=== PATIENT | male | born 1965 | race American Indian/Alaskan Native ===

== ENCOUNTER 2017-02-24 13:48 | Inpatient (IN) | payer MEDICARE, OTHER ==
[2017-02-24 13:48] VITALS: BMI 46.8
[2017-02-24] MEDS ORDERED: Morphine 4 MG/ML VIAL ONE ×2 (14:59→16:06)
[2017-02-24 15:02] LABS: BASO % 0.3 % (0.0-2.0); EOS # 0.3 K/uL (0.0-0.7); EOS % 2.2 % (0.0-4.0); LYMPH # 0.8 K/uL (1.0-4.3); LYMPH % 7.1 % (20.0-40.0); MEAN CELL VOLUME 74.7 fL (80.0-94.0); MEAN CORPUSCULAR HEMOGLOBIN 23.8 pg (27.0-31.0); MEAN CORPUSCULAR HGB CONC 31.8 g/dL (33.0-37.0); MEAN PLATELET VOLUME 8.4 fL (7.2-11.7); MONO # 0.3 K/uL (0.0-0.8); MONO % 2.2 % (0.0-10.0); PLATELET COUNT 252 K/uL (130-400); RED CELL DISTRIBUTION WIDTH 18.1 % (11.5-14.5); WHITE BLOOD COUNT 11.5 K/uL (4.8-10.8)
[2017-02-24 15:08] LABS: VENOUS BLOOD GAS BASE EXCESS 9.1 mmol/L (0.0-2.0); VENOUS BLOOD GAS PCO2 60 mmHg (40-60); VENOUS BLOOD PH 7.39 (7.32-7.43)
--- NOTE | 2017-02-24 15:08 | C.PDOC ---
History Of Present Illness 51 year old male with a history of ESRD on HD (T,Th,S), presents to the ED c/o worsening right leg pain while during dialysis today. Patient states he has h/ o recurring cellulitis; was admitted for cellulites on 01/13/17. He also thinks he has may have a wound behind his right knee that is oozing. Patient denies fever, falls/injuries, chest pain, SOB. Time Seen by Provider: 02/24/17 13:53 Chief Complaint (Nursing): Lower Extremity Problem/Injury History Per: Patient History/Exam Limitations: no limitations Onset/Duration Of Symptoms: Hrs Current Symptoms Are (Timing): Still Present Severity: Moderate Past Medical History Reviewed: Historical Data, Nursing Documentation, Vital Signs Vital Signs: Last Vital Signs Temp 97.7 F 03/01/17 11:00 Pulse 63 03/01/17 10:45 Resp 16 03/01/17 11:00 BP 105/59 L 03/01/17 14:09 Pulse Ox 95 03/01/17 11:00 - Medical History PMH: Anemia, Bronchitis, COPD, Diabetes, HTN, Peripheral Edema, End Stage Renal Disease, Chronic Kidney Disease, Chronic Pain - [facility] Procedures DIALYSIS ARTERIOVENOSTOM (05/07/14) DILATION OF LEFT BRACHIAL VEIN, PERCUTANEOUS APPROACH (08/04/16) DRESSING OF WOUND NEC (05/29/14) EXTIRPATION OF MATTER FROM L BRACH ART, PERC APPROACH (08/04/16) EXTIRPATION OF MATTER FROM LEFT BRACHIAL VEIN, PERC APPROACH (08/04/16) HEMODIALYSIS (05/29/14) OTHER FASCIECTOMY (05/29/14) PACKED CELL TRANSFUSION (05/29/14) PERCUTAN NEEDLE BIOPSY OF KIDNEY (01/30/14) PERFORMANCE OF URINARY FILTRATION, MULTIPLE (02/24/17) VENOUS CATHETERIZATION FOR RENAL DIALYSIS (01/18/14) VENOUS CATHETERIZATION NEC (09/22/13) Family History: States: No Known Family Hx - Social History Hx Tobacco Use: No Hx Alcohol Use: No Hx Substance Use: No - Immunization History Hx Tetanus Toxoid Vaccination: No Hx Influenza Vaccination: No Hx Pneumococcal Vaccination: No Review Of Systems Except As Marked, All Systems Reviewed And Found Negative. Constitutional: Negative for: Fever, Chills Cardiovascular: Negative for: Chest Pain, Palpitations Respiratory: Negative for: Cough, Shortness of Breath Gastrointestinal: Negative for: Nausea, Vomiting, Abdominal Pain, Diarrhea Musculoskeletal: Positive for: Leg Pain (+Right leg pain and swelling) Physical Exam - Physical Exam Appears: Non-toxic, Other (+Moderate discomfort, +Morbidly obese) Skin: Normal Color, Warm, Dry Head: Normacephalic Eye(s): bilateral: Normal Inspection Oral Mucosa: Moist Cardiovascular: Rhythm Regular Respiratory: Normal Breath Sounds, No Rales, No Rhonchi, No Wheezing Gastrointestinal/Abdominal: Normal Exam, Bowel Sounds, Soft, No Tenderness, No Rebound, Other (obese) Extremity: Tenderness (+Diffuse tenderness to palpation right leg, greatest at thigh ), No Calf Tenderness, Capillary Refill (< 2 sec all digits ), No Deformity, Other (+Significant lymphedema of bilateral legs. ) Extremity: Right: Other (+Diffuse erythema of right leg. No obvious wounds, fluctuance/induration.) Pulses: Left Dorsalis Pedis: Normal, Right Dorsalis Pedis: Normal Neurological/Psych: Oriented x3, Normal Sensation ED Course And Treatment - Laboratory Results Result Diagrams: 03/01/17 06:46 03/01/17 06:46 O2 Sat by Pulse Oximetry: 96 (Room air) Pulse Ox Interpretation: Normal Progress Note: Blood work ordered and reviewed. Patient given IV Morphine for pain, and IV Vancomycin and Cefepime. 15:56- Discussed patient with Dr. Jiang ( Hospitalist), who agrees with admission for cellulitis, bandemia, ESRD on HD. - Physician Consult Information Physician Contacted: Yuriy Jiang Disposition - Disposition Disposition: HOSPITALIZED Disposition Time: 16:02 Condition: STABLE - Clinical Impression Clinical Impression: Cellulitis, Bandemia, ESRD on hemodialysis - Scribe Statement The provider has reviewed the documentation as recorded by the Scribe Fidencio Das. Provider Attestation: All medical record entries made by the Scribe were at my direction and personally dictated by me. I have reviewed the chart and agree that the record accurately reflects my personal performance of the history, physical exam, medical decision making, and the department course for this patient. I have also personally directed, reviewed, and agree with the discharge instructions and disposition. Decision To Admit - Pt Status Changed To: Hospital Disposition Of: Inpatient - Admit Certification Admit to Inpatient:: After my assessment, the patient will require hospitalization for at least two midnights. This is because of the severity of symptoms shown, intensity of services needed, and/or the medical risk in this patient being treated as an outpatient. - InPatient: Physician Admission Certification: I certify that this patient requires 2 or more midnights of care for the following reason:: see notes - . Bed Request Type: Regular Admitting Physician: Yuriy Jiang Patient Diagnosis: Cellulitis, Bandemia, ESRD on hemodialysis
[2017-02-24 15:12] LABS: POTASSIUM 3.4 mmol/L (3.6-5.2)
[2017-02-24 15:14] LABS: BILIRUBIN,TOTAL 0.6 mg/dL (0.2-1.3)
[2017-02-24 15:15] LABS: ALB/GLOB RATIO 0.9 (1.0-2.1); TOTAL PROTEIN 8.8 g/dL (6.3-8.3)
[2017-02-24] MEDS ORDERED: Cefepime 1 GM in Sodium Chloride 0.9% 50 ML IVPB ONE (15:15)
[2017-02-24 15:32] LABS: EOSINOPHIL 3 % (0-4); NEUTROPHIL 51 % (50-75); TOTAL CELLS COUNTED 100
[2017-02-24] MEDS ORDERED: Cefepime IV 1 gm in Dextrose 50 ML IVPB ONE (15:45)
--- NOTE | 2017-02-24 16:44 | CP.PCM.HP ---
<Cindy Albright - Last Filed: 02/24/17 17:35> History of Present Illness - History of Present Illness History of Present Illness: Internal medicine H & P for Hospitalist service- Cindy Albright, PGY-1 Pt S & E at bedside. 51 yo M w/PMH sig for ESRD on HD, chronic lymph edema, morbid obesity and chronic asthma/bronchitis admitted for RLE cellulitis x 1 day. Pt reports he noted R pant leg was wet from leg weaping today prior to HD, during HD pt noted onset of burning/pins & needles, pressure pain in R leg w/radiation to thigh, constant, increased in intensity over time. Denies alleviating/ aggravating/known inciting factors, has prior hx of similar due to small breaks in skin. Admits to dizziness, chills (intermittent, recurrent), numbness/ tingling of RLE, [place]. Denies N/V/F, CP, abdominal pain, constipation, diarrhea , dysuria, urinary frequency, anuria, blurry vision, double vision, headache, cough, congestion, rhinorrhea, palpitations. PMH: chronic lymph edema, ESRD on HD (TTS), morbid obesity, chronic asthma/ bronchitis PSH: Failed AVF, L UE graft/stents All: Pet dander, dust SH: Quit tobacco use 2 mos ago (hx of 1/2 ppd x 2 yrs), occasional/special occasion ETOH use, remote hx of cocaine/MJ use PMD: Ivet Alegre Nephro: Nakul Present on Admission - Present on Admission Any Indicators Present on Admission: No History of DVT/PE: No History of Uncontrolled Diabetes: No Urinary Catheter: No Decubitus Ulcer Present: No Review of Systems - Review of Systems All systems: reviewed and no additional remarkable complaints except - Constitutional Constitutional: Chills, Weight Loss (intentional). absent: Fever - EENT Eyes: absent: Blurred Vision, Change in Vision Ears: absent: Dizziness Nose/Mouth/Throat: absent: Nasal Congestion, Sore Throat - Cardiovascular Cardiovascular: absent: Chest Pain, Diaphoresis, Palpitations - Respiratory Respiratory: absent: Cough, Chest Congestion - Gastrointestinal Gastrointestinal: Nausea. absent: Abdominal Pain, Constipation, Diarrhea, Hematemesis, Hematochezia, Vomiting - Genitourinary Genitourinary: absent: Change in Urinary Stream, Difficulty Urinating, Dysuria, Hematuria - Musculoskeletal Musculoskeletal: Numbness, Tingling - Integumentary Integumentary: Dry Skin, Erythema, Swelling - Neurological Neurological: absent: Dizziness, Weakness - Endocrine Endocrine: absent: Fatigue Past Patient History - Infectious Disease Hx of Infectious Diseases: None - Past Medical History & Family History Past Medical History?: Yes - Past Social History Smoking Status: Former Smoker - CARDIAC Hx Hypertension: Yes Hx Peripheral Edema: Yes - PULMONARY Hx Bronchitis: Yes Hx Chronic Obstructive Pulmonary Disease (COPD): Yes - NEUROLOGICAL Hx Neurological Disorder: No - HEENT Hx HEENT Problems: No - RENAL Hx Chronic Kidney Disease: Yes - ENDOCRINE/METABOLIC Hx Diabetes Mellitus Type 2: Yes - HEMATOLOGICAL/ONCOLOGICAL Hx Anemia: Yes - INTEGUMENTARY Hx Dermatological Problems: Yes Hx Cellulitis: Yes - MUSCULOSKELETAL/RHEUMATOLOGICAL Hx Musculoskeletal Disorders: Yes Hx Falls: Yes - GASTROINTESTINAL Hx Gastrointestinal Disorders: Yes Hx Gastroesophageal Reflux: Yes - GENITOURINARY/GYNECOLOGICAL Hx Genitourinary Disorders: No - PSYCHIATRIC Hx Substance Use: No - SURGICAL HISTORY Hx Surgeries: Yes (Left arm AV Fistula) Hx Vascular Surgery: Yes (ACCESS FOR DIALYSIS) - ANESTHESIA Hx Anesthesia: Yes Hx Anesthesia Reactions: No Hx Malignant Hyperthermia: No Meds Allergies/Adverse Reactions: Allergies Allergy/AdvReac Type Severity Reaction Status Date / Time piperacillin AdvReac ITCHING, Verified 02/24/17 14:06 SHORTNESS OF BREATH PET DANDER Allergy Severe CONGESTION Uncoded 01/13/17 12:23 Physical Exam - Constitutional Appears: Non-toxic, No Acute Distress - Head Exam Head Exam: ATRAUMATIC, NORMAL INSPECTION, NORMOCEPHALIC - Eye Exam Eye Exam: EOMI, Normal appearance, PERRL Pupil Exam: NORMAL ACCOMODATION, PERRL - ENT Exam ENT Exam: Mucous Membranes Moist, Normal Exam - Neck Exam Neck exam: Positive for: Full Rom, Normal Inspection - Respiratory Exam Respiratory Exam: Clear to Auscultation Bilateral, NORMAL BREATHING PATTERN. absent: Decreased Breath Sounds, Rales, Rhonchi, Wheezes, Stridor - Cardiovascular Exam Cardiovascular Exam: REGULAR RHYTHM, +S1, +S2 - GI/Abdominal Exam GI & Abdominal Exam: Normal Bowel Sounds, Soft. absent: Distended (obese), Tenderness - Extremities Exam Extremities exam: Positive for: pedal edema, tenderness. Negative for: normal inspection Additional comments: RLE w/severe tenderness to palpation, multiple folds, proximal folds with moisture- white creamy rash, whole leg with increased warmth, erythematous, proximal medial thigh with induration, severely tender to palpation, intact sensation - Back Exam Back exam: FULL ROM, NORMAL INSPECTION - Neurological Exam Neurological exam: Alert, CN II-XII Intact, Oriented x3 - Psychiatric Exam Psychiatric exam: Normal Affect, Normal Mood - Skin Skin Exam: Dry, Erythema, Rash, Warm Results - Vital Signs Recent Vital Signs: Last Vital Signs Temp 97.5 F L 02/24/17 13:52 Pulse 92 H 02/24/17 13:52 Resp 20 02/24/17 13:52 BP 121/71 02/24/17 13:52 Pulse Ox 96 02/24/17 16:05 - Labs Result Diagrams: 02/24/17 14:56 02/24/17 14:56 Assessment & Plan - Assessment and Plan (Free Text) Assessment: R lower extremity cellulitis, high suspicion for Sepsis Leukocytosis Afebrile Tachycardia FU procalcitonin FU LA @ 6pm FU Blood Cxr FU urine cxr FU Doppler U/S of RLE FU U/S of R/L medial thigh to R/o abscess Colace Zofran Dilaudid 0.5mg Q4H PRN Floraster 250mg BID Cefepime 1gm Q12H Vancomycin 1gm Q12H Nystatin topical Wound care Q12H ID consulted- Candelaria ESRD on HD Renal diet NS@75 Nephro consulted- Nakul Hx asthma FU CXR O2 PRN GI/DVT ppx SCDs contraindicated due to intolerance/infection Heparin Pepcid Dispo: Admit to Med surg VS Q4H Renal/dialysis diet Ambulate with assistance PT/OT LUE precautions 2/2 AV graft/stents DW attending - Date & Time Date: 02/24/17 Time: 04:00 Decision To Admit - Pt Status Changed To: Hospital Disposition Of: Inpatient - Admit Certification Admit to Inpatient:: After my assessment, the patient will require hospitalization for at least two midnights. This is because of the severity of symptoms shown, intensity of services needed, and/or the medical risk in this patient being treated as an outpatient. - InPatient: Physician Admission Certification:: possible sepsis vs. DVT vs. RLE cellulitis - . Bed Request Type: Regular Admitting Physician: Rohini Tomlinson <Rohini Tomlinson V - Last Filed: 02/26/17 08:07> Results - Vital Signs Recent Vital Signs: Last Vital Signs Temp 98.7 F 02/26/17 07:38 Pulse 82 02/26/17 07:38 Resp 20 02/26/17 07:38 BP 132/76 02/26/17 07:38 Pulse Ox 96 02/26/17 07:38 - Labs Result Diagrams: 02/26/17 07:30 02/25/17 08:50 Labs: Laboratory Results - last 24 hr 02/25/17 02/25/17 02/26/17 08:50 13:48 07:30 WBC 23.3 H D 20.9 H RBC 4.28 L 3.96 L Hgb 10.0 L 9.1 L Hct 31.7 L 29.4 L MCV 74.1 L 74.1 L MCH 23.4 L 23.1 L MCHC 31.6 L 31.1 L RDW 18.0 H 17.7 H Plt Count 203 186 MPV 7.9 8.1 Neut % (Auto) 91.6 H 85.9 H Lymph % (Auto) 4.0 L 6.8 L [place] % (Auto) 4.1 6.1 Eos % (Auto) 0.2 1.1 Baso % (Auto) 0.1 0.1 Neut # 21.3 H 18.0 H Lymph # 0.9 L 1.4 [place] # 0.9 H 1.3 H Eos # 0.0 0.2 Baso # 0.0 0.0 Neutrophils % (Manual) 61 Band Neutrophils % 29 H* Lymphocytes % (Manual) 3 L Monocytes % (Manual) 7 Platelet Estimate Normal Hypochromasia (manual) Slight Poikilocytosis (manual Slight Anisocytosis (manual) Slight Target Cells Slight APTT 29 Sodium 133 Potassium 4.1 Chloride 87 L Carbon Dioxide 32 H Anion Gap 18 BUN 36 H Creatinine 3.5 H Est GFR ( Amer) 23 Est GFR (Non-Af Amer) 19 Random Glucose 136 H Lactic Acid 1.2 Calcium 8.2 L Total Bilirubin 1.2 AST 26 ALT 20 L Alkaline Phosphatase 72 Total Protein 7.3 Albumin 3.4 L Globulin 3.9 Albumin/Globulin Ratio 0.9 L Attending/Attestation - Attestation I have personally seen and examined this patient.: Yes I have fully participated in the care of the patient.: Yes I have reviewed all pertinent clinical information: Yes Notes (Text): This is a late computer entry for 02/24/17. Patient seen, examined and case discussed with day-time resident on 02/24/17 in Bed Brian 10 at approximately 5:25PM with resident. 1) Sepsis secondary to right lower extremity * Criteria: Elevated Bands, HR>90, and suspected source right lower extremity cellulitis * In the ED, patient given dose of Cefepime and Vancomcyin one time doses and lactacte per VBG was 3.0 at 3PM * Repeat lactate and procalcitonin at 6PM * In the ED, ordered for Blood cultures, urine culture, and completed chest xray * Per exam, patient has edematous area over the right lower extremity medial aspect; will order ultrasound to determine if there is abscess present; note physical exam: patient has "elephantisis" type of legs bilateral: using light source, the right lower extremity is darker, erythematous, and painful to touch extending up into groin area as opposed to left lower extremity there is no similar skin changes. Also note, patient has in the folds of the right lower extremity area of white plaque buildup suspecting fungal. I've checked around his groin and intrigenous folds and there are not other areas observed for antifungal. Dialysis access does not appear warm, infected upon exam. * order Doppler U/S of RLE r/o DVT risk factor: morbid obesity (patient is ambulatory, no recent surgery, no recent trauma, no suspected hx of cancer, no prior known hx of DVT * FU U/S of R/L medial thigh to R/o abscess * Colace 100mg PO bid * Zofran 4mg Iv Q 6hour PRN nausea * Dilaudid 0.5mg Q4H PRN severe pain * Floraster 250mg BID for probiotic * Abx: Cefepime 1gm [id number] and Vancomycin 1gm [id number] (Note: Patient DOES NOT have pencillin allergy; per patient, his grandmother decided for all the children they had a pencillin allergy because she had an anaphylactic type of reaction; he reports he tolerates pencillin no adverse reaction) * Nystatin topical * Wound care Q12H * Consult: Dr. Gaona (infectious disease) for further recommendations * IV hydration: NS@ 75 cc/hr; patient is ESRD; will not bolus him at this time; normotensive; will monitor him 2) ESRD on HD * Per patient, he completed about 1.5 hour of dialysis today prior to coming in but cannot recall how much fluid was taken off him; he was an additional session to his session from Wednesday because of prior social engagement interrupting his normal dialysis schedule * Renal diet * NS@75 * Consult Nephrology (Dr. Mota) on board 3) Hx of asthma * Patient is not in acute exacerbation; use pump sparingly; never been intubated for asthma * Ordered for baseline chest xray * Oxygen PRN 4) GI/DVT ppx * SCDs contraindicated due to lower extremity edema and ruling out DVT * Heparin 5000 units [id number] * Pepcid for GI ppx
[2017-02-24] MEDS ORDERED: Sodium Chloride 0.9% 1,000 ML IV SCH (17:15)
--- NOTE | 2017-02-24 18:11 | US ---
PROCEDURE: Limited ultrasound examination of the right lower extremity/right medial thigh HISTORY: Right medial thigh r/o abscess COMPARISON: No prior similar study available for comparison. TECHNIQUE: Limited ultrasound examination of the right thigh and popliteal fossa was performed. FINDINGS: This study demonstrate subcutaneous edema and soft tissue swelling at the right thigh and popliteal fossa. No evidence of discrete fluid collection. No evidence of abscess formation. IMPRESSION: Skin and subcutaneous soft tissue edema and swelling seen at the right thigh and posterior fossa. No evidence of abscess formation.
[2017-02-24] MEDS ORDERED: Sodium Chloride 0.9% 1,000 ML ONE (18:24)
--- NOTE | 2017-02-24 18:58 | RAD ---
HISTORY: Asthma COMPARISON: 01/13/2017 FINDINGS: LUNGS: There is mild pulmonary venous congestion. PLEURA: No significant pleural effusion identified, no pneumothorax apparent. CARDIOVASCULAR: Normal. OSSEOUS STRUCTURES: No significant abnormalities. VISUALIZED UPPER ABDOMEN: Normal. OTHER FINDINGS: None. IMPRESSION: No active pulmonary disease. Mild pulmonary venous congestion.
[2017-02-24] MEDS: Saccharomyces Boulardi 250 mg Cap PO SCH (19:59)
[2017-02-24] MEDS: Nystatin 100,000 Units/gm Topical Pow(15 gm) TOP SCH (20:00)
[2017-02-24] MEDS: HYDROmorphone 0.5 mg/0.5 ml ISec IVP PRN (22:24)
[2017-02-25] MEDS: HYDROmorphone 0.5 mg/0.5 ml ISec IVP PRN ×2 (02:20→08:57)
[2017-02-25] MEDS ORDERED: Vancomycin 1 gm/NS 200 ml 200 ML IVPB SCH (05:00)
[2017-02-25 08:57] LABS: BASO % 0.1 % (0.0-2.0); EOS % 0.2 % (0.0-4.0); HEMATOCRIT 31.7 % (35.0-51.0); LYMPH # 0.9 K/uL (1.0-4.3); MEAN CELL VOLUME 74.1 fL (80.0-94.0); MEAN CORPUSCULAR HEMOGLOBIN 23.4 pg (27.0-31.0); MEAN CORPUSCULAR HGB CONC 31.6 g/dL (33.0-37.0); MEAN PLATELET VOLUME 7.9 fL (7.2-11.7); MONO # 0.9 K/uL (0.0-0.8); MONO % 4.1 % (0.0-10.0); PLATELET COUNT 203 K/uL (130-400)
[2017-02-25 08:58] LABS: WHITE BLOOD COUNT 23.3 K/uL (4.8-10.8)
[2017-02-25 09:06] LABS: POTASSIUM 4.1 mmol/L (3.6-5.2)
[2017-02-25 09:08] LABS: ALB/GLOB RATIO 0.9 (1.0-2.1); BILIRUBIN,TOTAL 1.2 mg/dL (0.2-1.3); TOTAL PROTEIN 7.3 g/dL (6.3-8.3)
[2017-02-25 09:09] LABS: CALCIUM 8.2 mg/dl (8.6-10.4)
[2017-02-25 10:15] LABS: NEUTROPHIL 61 % (50-75); TOTAL CELLS COUNTED 100
--- NOTE | 2017-02-25 10:27 | CP.PCM.CON ---
History of Present Illness - History of Present Illness History of Present Illness: 51 yo M w/PMH sig for ESRD on HD, chronic lymph edema, morbid obesity and chronic asthma/bronchitis admitted for RLE cellulitis x 1 day. Pt reports he noted R pant leg was wet from leg weaping today prior to HD, during HD pt noted onset of burning/pins & needles, pressure pain in R leg w/radiation to thigh, constant, increased in intensity over time. Denies alleviating/ aggravating/known inciting factors, has prior hx of similar due to small breaks in skin. Admits to dizziness, chills (intermittent, recurrent), numbness/ tingling of RLE, [place]. Denies N/V/F, CP, abdominal pain, constipation, diarrhea , dysuria, urinary frequency, anuria, blurry vision, double vision, headache, cough, congestion, rhinorrhea, palpitations. PMH: chronic lymph edema, ESRD on HD (TTS), morbid obesity, chronic asthma/ bronchitis PSH: Failed AVF, L UE graft/stents All: Pet dander, dust SH: Quit tobacco use 2 mos ago (hx of 1/2 ppd x 2 yrs), occasional/special occasion ETOH use, remote hx of cocaine/MJ use PMD: Ivet Alegre CONSULT DICTATED HAS CELLULITIS RIGHT LE AGREE WITH IV VANCO- WOULD CHANGE TO RENAL APPROPRIATE DOSE Past Patient History - Infectious Disease Hx of Infectious Diseases: None - Past Medical History & Family History Past Medical History?: Yes - Past Social History Smoking Status: Former Smoker - CARDIAC Hx Hypertension: Yes Hx Peripheral Edema: Yes - PULMONARY Hx Bronchitis: Yes Hx Chronic Obstructive Pulmonary Disease (COPD): Yes - NEUROLOGICAL Hx Neurological Disorder: No - HEENT Hx HEENT Problems: No - RENAL Hx Chronic Kidney Disease: Yes Hx Dialysis: Yes Type of Dialysis Access: left arm av fistula Date of Last Dialysis Treatment: 02/23/17 Hx Renal Failure: Yes Other/Comment: esrd - ENDOCRINE/METABOLIC Hx Diabetes Mellitus Type 2: Yes - HEMATOLOGICAL/ONCOLOGICAL Hx Anemia: Yes - INTEGUMENTARY Hx Dermatological Problems: Yes Hx Cellulitis: Yes - MUSCULOSKELETAL/RHEUMATOLOGICAL Hx Falls: Yes - GASTROINTESTINAL Hx Gastrointestinal Disorders: Yes Hx Gastroesophageal Reflux: Yes - GENITOURINARY/GYNECOLOGICAL Hx Genitourinary Disorders: No - PSYCHIATRIC Hx Substance Use: No - SURGICAL HISTORY Hx Surgeries: Yes (Left arm AV Fistula) Hx Vascular Surgery: Yes (ACCESS FOR DIALYSIS) - ANESTHESIA Hx Anesthesia: Yes Hx Anesthesia Reactions: No Hx Malignant Hyperthermia: No Has any member of the family had a problem w/ anesthesia?: No Meds Allergies/Adverse Reactions: Allergies Allergy/AdvReac Type Severity Reaction Status Date / Time piperacillin AdvReac ITCHING, Verified 02/24/17 14:06 SHORTNESS OF BREATH PET DANDER Allergy Severe CONGESTION Uncoded 01/13/17 12:23 - Medications Medications: Current Medications Acetaminophen (Tylenol 325mg Tab) 650 mg PO Q6 PRN PRN Reason: Fever >100.4 F Last Admin: 02/25/17 00:44 Dose: 650 mg Docusate Sodium (Colace) 100 mg PO BID [facility] Last Admin: 02/24/17 20:01 Dose: 100 mg Famotidine (Pepcid) 20 mg PO BID [facility] Last Admin: 02/24/17 20:01 Dose: 20 mg Heparin Sodium (Porcine) (Heparin) 5,000 units SC Q8H [facility] Last Admin: 02/25/17 05:22 Dose: 5,000 units Hydromorphone HCl (Dilaudid) 0.5 mg IVP Q4H PRN PRN Reason: Pain, moderate (4-7) Last Admin: 02/25/17 08:57 Dose: 0.5 mg Sodium Chloride (Sodium Chloride 0.9%) 1,000 mls @ 75 mls/hr IV .[id number] [facility] Last Admin: 02/24/17 19:12 Dose: 75 mls/hr Cefepime HCl 1 gm/ Dextrose 50 mls @ 100 mls/hr IVPB Q12H [facility] Vancomycin/Sodium Chloride (Vancocin) 200 mls @ 133 mls/hr IVPB TTS [facility] Stop: 03/04/17 10:01 Nystatin (Nystop Topical Powder) 1 gm TOP Q12H [facility] Last Admin: 02/24/17 20:00 Dose: 1 gm Ondansetron HCl (Zofran Inj) 4 mg IVP Q6 PRN PRN Reason: Nausea/Vomiting Saccharomyces Boulardii (Florastor) 250 mg PO Q12H [facility] Last Admin: 02/24/17 19:59 Dose: 250 mg Results - Vital Signs Recent Vital Signs: Last Vital Signs Temp 98.2 F 02/25/17 07:31 Pulse 87 02/25/17 07:31 Resp 20 02/25/17 07:31 BP 108/72 02/25/17 07:31 Pulse Ox 96 02/25/17 07:31 - Labs Result Diagrams: 02/25/17 08:50 02/25/17 08:50 Labs: Laboratory Results - last 24 hr 02/24/17 02/24/17 02/25/17 18:53 21:13 08:50 WBC 23.3 H D RBC 4.28 L Hgb 10.0 L Hct 31.7 L MCV 74.1 L MCH 23.4 L MCHC 31.6 L RDW 18.0 H Plt Count 203 MPV 7.9 Neut % (Auto) 91.6 H Lymph % (Auto) 4.0 L [place] % (Auto) 4.1 Eos % (Auto) 0.2 Baso % (Auto) 0.1 Neut # 21.3 H Lymph # 0.9 L [place] # 0.9 H Eos # 0.0 Baso # 0.0 Neutrophils % (Manual) 61 Band Neutrophils % 29 H* Lymphocytes % (Manual) 3 L Monocytes % (Manual) 7 Platelet Estimate Normal Hypochromasia (manual) Slight Poikilocytosis (manual Slight Anisocytosis (manual) Slight Target Cells Slight PT 11.5 INR 1.0 APTT 32 29 Sodium 133 Potassium 4.1 Chloride 87 L Carbon Dioxide 32 H Anion Gap 18 BUN 36 H Creatinine 3.5 H Est GFR ( Amer) 23 Est GFR (Non-Af Amer) 19 Random Glucose 136 H Lactic Acid 3.9 H Calcium 8.2 L Total Bilirubin 1.2 AST 26 ALT 20 L Alkaline Phosphatase 72 Total Protein 7.3 Albumin 3.4 L Globulin 3.9 Albumin/Globulin Ratio 0.9 L Procalcitonin 16.64 H
--- NOTE | 2017-02-25 10:50 | CON ---
DATE: 02/25/2017 The patient is a 51-year-old man who presents on the evening of 02/24/2017 with drai nage of his right lower extremity, mostly in the thigh area. He has had fevers and chills, and in e Emergency Department he was found to have a temperature over 102. He was admitted for cellulitis of the right lower extremity. The patient has history of recurrent cellulitis related to chronic lymph edema of the lower extremities. PAST MEDICAL HISTORY: Is that of hypertension, chronic glomerulonephritis, end-stage renal disease, has been on maintenance hemodialysis for about 2-1/2 years; history of asthma, morbid obesity, chroni c lymphedema of lower extremities. MEDICATIONS: He is not taking any medications at present. PAST SURGICAL HISTORY: Is that of a failed AV graft and a new left arm AV fistula which is functiona l. He had previous dialysis catheters as well. He had an incision and drainage of a right lower ext remity abscess in the past as well. FAMILY HISTORY: Noncontributory. SOCIAL HISTORY: He was recently smoking; he just quit smoking. He has been smoking for many years t li. No history of alcohol abuse or illicit drug use. REVIEW OF SYSTEMS: Significant for lower extremity swelling for many years. He has moderate dyspnea on exertion after 2 or 3 blocks. No recent cough. He has had recent fevers and chills on presentat ion. He has had no nausea, vomiting or diarrhea. He still has urine output, but no dysuria recently . He did have recent chills and did have the redness over the right lower extremity. No chest pain. Other review of systems are all negative. Chest x-ray was no acute disease. LABORATORY DATA: Remarkable for a high white count of 23,000, hemoglobin of 10. He had a shift to t he left on his white count. He has CO2 retention on a blood gas. His potassium is 4.1, BUN 36, crea tinine 3.5. Lactic acid is elevated at 3.9. Calcium is stable at 8.2. IMPRESSION: Cellulitis of the right lower extremity, end-stage renal disease, hypertension, insulin- dependent diabetes mellitus type 2, chronic asthma, chronic lower extremity lymphedema. PLAN: Wound care and IV antibiotics as per medical team. He was given vancomycin. I would need to change the dose to appropriate vancomycin levels for a renal patient. I will schedule his dialysis. Will follow up. Jt Mota MD cc: [id number] TT: 02/25/2017 10:50:12 Confirmation # [id number] Dictation # [id number] mn
[2017-02-25] MEDS ORDERED: Sodium Chloride 0.9% 500 ML IV ONE (14:45)
[2017-02-25] MEDS: HYDROmorphone 1 mg/ml ISec IVP PRN ×2 (14:58→19:32)
[2017-02-25] MEDS ORDERED: Sodium Chloride 0.9% 1,000 ML IV SCH (15:15)
--- NOTE | 2017-02-25 15:15 | CP.PCM.PN ---
<Cindy Albright - Last Filed: 02/25/17 15:11> Subjective - Date & Time of Evaluation Date of Evaluation: 02/25/17 Time of Evaluation: 07:30 - Subjective Subjective: Internal medicine progress note for Hospitalist service- Cindy Albright, PGY-1 Pt S & E at bedside. Pt febrile overnight, very diaphoretic, "feels funny", RLE pain is minimally controlled- pt asking for increase in pain regimen. Otherwise, doing ok, denies N/V/C, SOB, CP, abdominal pain. Tolerating diet. Objective - Vital Signs/Intake and Output Vital Signs (last 24 hours): Temp Pulse Resp BP Pulse Ox 98.2 F 87 20 108/72 96 02/25/17 07:31 02/25/17 07:31 02/25/17 07:31 02/25/17 07:31 02/25/17 07:31 - Medications Medications: Current Medications Acetaminophen (Tylenol 325mg Tab) 650 mg PO Q6 PRN PRN Reason: Fever >100.4 F Last Admin: 02/25/17 00:44 Dose: 650 mg Famotidine (Pepcid) 20 mg PO DAILY [facility] Heparin Sodium (Porcine) (Heparin) 5,000 units SC Q8H [facility] Last Admin: 02/25/17 14:07 Dose: Not Given Hydromorphone HCl (Dilaudid) 1 mg IVP Q4H PRN PRN Reason: Pain, severe (8-10) Last Admin: 02/25/17 14:58 Dose: 1 mg Sodium Chloride (Sodium Chloride 0.9%) 1,000 mls @ 75 mls/hr IV .[id number] [facility] Last Admin: 02/24/17 19:12 Dose: 75 mls/hr Vancomycin/Sodium Chloride (Vancocin) 200 mls @ 133 mls/hr IVPB TTS [facility] Stop: 03/04/17 10:01 Cefepime HCl 1 gm/ Dextrose 50 mls @ 100 mls/hr IVPB Q12H [facility] Last Admin: 02/25/17 10:43 Dose: 100 mls/hr Sodium Chloride (Sodium Chloride 0.9%) 500 mls @ 1,000 mls/hr IV .Q30M ONE Stop: 02/25/17 15:14 Sodium Chloride (Sodium Chloride 0.9%) 1,000 mls @ 100 mls/hr IV .Q10H [facility] Morphine Sulfate (Morphine) 2 mg IVP Q3 PRN PRN Reason: Pain, moderate (4-7) Nystatin (Nystop Topical Powder) 1 gm TOP Q12H [facility] Last Admin: 02/24/17 20:00 Dose: 1 gm Ondansetron HCl (Zofran Inj) 4 mg IVP Q6 PRN PRN Reason: Nausea/Vomiting Polyethylene Glycol (Miralax) 17 gm PO DAILY [facility] Saccharomyces Boulardii (Florastor) 250 mg PO Q12H [facility] Last Admin: 02/24/17 19:59 Dose: 250 mg - Labs Labs: 02/25/17 08:50 02/25/17 08:50 PT 11.5 SECONDS (9.7-12.2) 02/24/17 21:13 INR 1.0 02/24/17 21:13 APTT 29 SECONDS (21-34) 02/25/17 08:50 - Constitutional Appears: Non-toxic, No Acute Distress - Head Exam Head Exam: ATRAUMATIC, NORMAL INSPECTION, NORMOCEPHALIC - Eye Exam Eye Exam: EOMI, Normal appearance, PERRL Pupil Exam: NORMAL ACCOMODATION, PERRL - ENT Exam ENT Exam: Mucous Membranes Moist, Normal Exam - Neck Exam Neck Exam: Full ROM, Normal Inspection - Respiratory Exam Respiratory Exam: Clear to Ausculation Bilateral, NORMAL BREATHING PATTERN. absent: Decreased Breath Sounds, Rales, Rhonchi, Wheezes, Respiratory Distress - Cardiovascular Exam Cardiovascular Exam: REGULAR RHYTHM, +S1, +S2 - GI/Abdominal Exam GI & Abdominal Exam: Soft, Normal Bowel Sounds. absent: Distended (morbidly obese), Tenderness - Extremities Exam Extremities Exam: Pedal Edema, Tenderness Additional comments: Lower ext B/L swollen, pt morbidly obese. RLE w/increased swelling, erythema, tenderness of posterior/medial aspect of limb, multiple skin/fat folds w/moist skin/creamy white residue, increased warmth - Neurological Exam Neurological Exam: Alert, Awake, CN II-XII Intact, Oriented x3 - Psychiatric Exam Psychiatric exam: Normal Affect, Normal Mood - Skin Skin Exam: Dry, Erythema, Intact, Warm. absent: Normal Color (RLE w/erythema) Assessment and Plan - Assessment and Plan (Free Text) Assessment: R lower extremity cellulitis, Sepsis Leukocytosis of 23.3 from 11.5 Bandemia 29 from 37 Febrile over last 24H, Tmax 102.2 Tachycardia Procalcitonin 16.64 LA 1.2 from 3.9 from 3.0 FU Blood Cxr FU urine cxr FU Doppler U/S of RLE U/S of R/L medial thigh to R/o abscess neg for abscess Colace switched to Miralax per pt request Zofran Dilaudid 0.5mg Q4H PRN increased to 1mg Q4H PRN Morphine 2mg Q3H PRN added Floraster 250mg BID Cefepime 1gm Q12H Vancomycin 1gm Q12H Nystatin topical Wound care Q12H Bolus of 500cc NS given IVF - NS@100 ID consulted- [facility] ICU consulted- [facility] ESRD on HD Renal diet NS@75 Nephro consulted- Nakul - HD TTS Hx asthma FU CXR O2 PRN GI/DVT ppx SCDs contraindicated due to intolerance/infection Heparin Pepcid Dispo: HD as per nephro- TTS Cont current mgmt Renal/dialysis diet Ambulate with assistance PT/OT LUE precautions 2/2 AV graft/stents FU ID recs No ICU at this point as per critical care DW attending <Rohini Tomlinson V - Last Filed: 02/26/17 08:16> Objective - Vital Signs/Intake and Output Vital Signs (last 24 hours): Temp Pulse Resp BP Pulse Ox 98.7 F 82 20 132/76 96 02/26/17 07:38 02/26/17 07:38 02/26/17 07:38 02/26/17 07:38 02/26/17 07:38 Intake and Output: 02/26/17 02/26/17 06:59 18:59 Intake Total 200 Output Total 150 Balance 50 - Medications Medications: Current Medications Acetaminophen (Tylenol 325mg Tab) 650 mg PO Q6 PRN PRN Reason: Fever >100.4 F Last Admin: 02/25/17 00:44 Dose: 650 mg Famotidine (Pepcid) 20 mg PO DAILY [facility] Heparin Sodium (Porcine) (Heparin) 5,000 units SC Q8H [facility] Last Admin: 02/26/17 05:40 Dose: 5,000 units Hydromorphone HCl (Dilaudid) 1 mg IVP Q4H PRN PRN Reason: Pain, severe (8-10) Last Admin: 02/25/17 19:32 Dose: 1 mg Sodium Chloride (Sodium Chloride 0.9%) 1,000 mls @ 75 mls/hr IV .[id number] [facility] Last Admin: 02/24/17 19:12 Dose: 75 mls/hr Vancomycin/Sodium Chloride (Vancocin) 200 mls @ 133 mls/hr IVPB TTS [facility] Stop: 03/04/17 10:01 Cefepime HCl 1 gm/ Dextrose 50 mls @ 100 mls/hr IVPB Q12H [facility] Last Admin: 02/25/17 22:14 Dose: 100 mls/hr Sodium Chloride (Sodium Chloride 0.9%) 1,000 mls @ 100 mls/hr IV .Q10H [facility] Morphine Sulfate (Morphine) 2 mg IVP Q3 PRN PRN Reason: Pain, moderate (4-7) Last Admin: 02/26/17 05:17 Dose: 2 mg Nystatin (Nystop Topical Powder) 1 gm TOP Q12H [facility] Last Admin: 02/26/17 05:31 Dose: 1 gm Ondansetron HCl (Zofran Inj) 4 mg IVP Q6 PRN PRN Reason: Nausea/Vomiting Polyethylene Glycol (Miralax) 17 gm PO DAILY [facility] Last Admin: 02/25/17 16:00 Dose: Not Given Saccharomyces Boulardii (Florastor) 250 mg PO Q12H [facility] Last Admin: 02/26/17 05:34 Dose: 250 mg - Labs Labs: 02/26/17 07:30 02/25/17 08:50 PT 11.5 SECONDS (9.7-12.2) 02/24/17 21:13 INR 1.0 02/24/17 21:13 APTT 30 SECONDS (21-34) 02/26/17 07:30 Attending/Attestation - Attestation I have personally seen and examined this patient.: Yes I have fully participated in the care of the patient.: Yes I have reviewed all pertinent clinical information, including history, physical exam and plan: Yes Notes (Text): This is late computer entry for 02/25/17. Patient seen, examined and case discussed with day-time resident. Patient sitting up right in 3rd floor. patient was febrile overnight. Patient eating lunch at bedside, will have dialysis shortly after. patient reports he feels better. He feels less dry. Discussed with patient, his white count went up, he is on 2 IV abxs, and will discuss with ICU to see if he is a candidate. Blood pressure is borderline normotensive. Blood cultures: no growth at this time Discussed with ID, patient will likely need some type of nursing services for his legs and feet given its quite difficult for one person to do such as the patient. Discussed with ICU, patient is not an ICU candidate at this time. Patient is stable. Repeat lactate shows improvement. Will continue IV abxs and increased IV hydration for the patient. 1) Sepsis secondary to right lower extremity * Criteria: Elevated Bands, HR>90, and suspected source right lower extremity cellulitis * 02/25: increased white count, procalciton: 16 (supporting bacterial cause for sepsis); Improving lactate * Right US LE: negative for abscess; +edema * RLE doppler: negative for DVT * Chest xray (01/14/17): mild venous congestion; bibasilar airspace opacities; upper lobe granulomatous changes * 02/24/17 Blood cultures: no growth for 24 hours X2 * Per exam, patient has edematous area over the right lower extremity medial aspect; will order ultrasound to determine if there is abscess present; note physical exam: patient has "elephantisis" type of legs bilateral: using light source, the right lower extremity is darker, erythematous, and painful to touch extending up into groin area as opposed to left lower extremity there is no similar skin changes. Also note, patient has in the folds of the right lower extremity area of white plaque buildup suspecting fungal. I've checked around his groin and intrigenous folds and there are not other areas observed for antifungal. Dialysis access does not appear warm, infected upon exam. * Colace 100mg PO bid * Zofran 4mg Iv Q 6hour PRN nausea * Dilaudid 0.5mg Q4H PRN severe pain * Floraster 250mg BID for probiotic * Abx: Cefepime 1gm [id number] and Vancomycin 1gm [id number] (Note: Patient DOES NOT have pencillin allergy; per patient, his grandmother decided for all the children they had a pencillin allergy because she had an anaphylactic type of reaction; he reports he tolerates pencillin no adverse reaction) * Nystatin topical * Wound care Q12H * Consult: Dr. Gaona (infectious disease) for further recommendations * IV hydration: NS@ 100 cc/hr; patient is ESRD; will not bolus him at this time ; normotensive; will monitor him * Not ICU candidate at this time, discussed with Dr. Tucker, patient is stable 2) ESRD on HD * Per patient, he completed about 1.5 hour of dialysis on admission prior to coming in but cannot recall how much fluid was taken off him; he was an additional session to his session from Wednesday because of prior social engagement interrupting his normal dialysis schedule. Patient going for dialysis today. * Renal diet * NS@ 100cc/hr * Consult Nephrology (Dr. Mota) on board 3) Hx of asthma * Patient is not in acute exacerbation; use pump sparingly; never been intubated for asthma * Chest xray (01/14/17): mild venous congestion; bibasilar airspace opacities; upper lobe granulomatous changes * Oxygen PRN 4) GI/DVT ppx * SCDs contraindicated due to lower extremity edema and ruling out DVT * Heparin 5000 units [id number] * Pepcid 20mg PO daily for GI ppx * NS 100cc/hr
[2017-02-25] MEDS: POLYETHYLENE GLYCOL 3350 17 GM/Dose PACKET PO SCH (16:00)
[2017-02-25] MEDS: Nystatin 100,000 Units/gm Topical Pow(15 gm) TOP SCH (17:30)
[2017-02-25] MEDS: Saccharomyces Boulardi 250 mg Cap PO SCH (17:40)
--- NOTE | 2017-02-25 19:13 | CP.PCM.CON ---
History of Present Illness - History of Present Illness History of Present Illness: 51 yo AAM admitted for RLE cellulitis x 1 day. Pt reports he noted R pant leg was wet from leg weaping today prior to HD, during HD pt noted onset of burning/ pins & needles, pressure pain in R leg w/radiation to thigh, constant, increased in intensity over time. ID consulted for antibiotic management PMH: chronic lymph edema, ESRD on HD (TTS), morbid obesity, chronic asthma/ bronchitis PSH: Failed AVF, L UE graft/stents All: Pet dander, dust SH: Quit tobacco use 2 mos ago (hx of /2 ppd x 2 yrs), occasional/special occasion ETOH use, remote hx of cocaine/MJ use PMD: Ivet Alegre PMH: Anemia, Bronchitis, COPD, Diabetes, HTN, Peripheral Edema, End Stage Renal Disease, Chronic Kidney Disease, Chronic Pain - [facility] Procedures DIALYSIS ARTERIOVENOSTOM (05/07/14) DILATION OF LEFT BRACHIAL VEIN, PERCUTANEOUS APPROACH (08/04/16) DRESSING OF WOUND NEC (05/29/14) EXTIRPATION OF MATTER FROM L BRACH ART, PERC APPROACH (08/04/16) EXTIRPATION OF MATTER FROM LEFT BRACHIAL VEIN, PERC APPROACH (08/04/16) HEMODIALYSIS (05/29/14) OTHER FASCIECTOMY (05/29/14) PACKED CELL TRANSFUSION (05/29/14) PERCUTAN NEEDLE BIOPSY OF KIDNEY (01/30/14) PERFORMANCE OF URINARY FILTRATION, MULTIPLE (01/13/17) VENOUS CATHETERIZATION FOR RENAL DIALYSIS (01/18/14) VENOUS CATHETERIZATION NEC (09/22/13) Review of Systems - Constitutional Constitutional: As Per HPI - EENT Eyes: absent: As Per HPI, Blind Spots, Blurred Vision, Change in Vision, Decreased Night Vision, Diplopia, Discharge, Dry Eye, Exophthalmos, Floaters, Irritation, Itchy Eyes, Loss of Peripheral Vision, Pain, Photophobia, Requires Corrective Lenses, Sees Flashes, Spots in Vision, Tunnel Vision, Other Visual Disturbances, Loss of Vision, Other Ears: absent: As Per HPI, Decreased Hearing, Ear Discharge, Ear Pain, Tinnitus, Abnormal Hearing, Disequilibrium, Dizziness, Other Nose/Mouth/Throat: absent: As Per HPI, Epistaxis, Nasal Congestion, Nasal Discharge, Nasal Obstruction, Nasal Trauma, Nose Pain, Post Nasal Drip, Sinus Pain, Sinus Pressure, Bleeding Gums, Change in Voice, Dental Pain, Dry Mouth, Dysphagia, Halitosis, Hoarsness, Lip Swelling, Mouth Lesions, Mouth Pain, Odynophagia, Sore Throat, Throat Swelling, Tongue Swelling, Facial Pain, Neck Pain, Neck Mass, Other - Cardiovascular Cardiovascular: absent: As Per HPI, Acrocyanosis, Chest Pain, Chest Pain at Rest , Chest Pain with Activity, Claudication, Diaphoresis, Dyspnea, Dyspnea on Exertion, Edema, Irregular Heart Rhythm, Pain Radiating to Arm/Neck/Jaw, Leg Edema, Leg Ulcers, Lightheadedness, Orthopnea, Palpitations, Paroxysmal Nocturnal Dyspnea, Pedal Edema, Radiating Pain, Rapid Heart Rate, Slow Heart Rate, Syncope, Other - Respiratory Respiratory: absent: As Per HPI, Cough, Dyspnea, Hemoptysis, Dyspnea on Exertion , Wheezing, Snoring, Stridor, Pain on Inspiration, Chest Congestion, Excessive Mucous Production, Change in Mucous Color, Pain with Coughing, Other - Gastrointestinal Gastrointestinal: absent: As Per HPI, Abdominal Pain, Belching, Bloating, Change in Bowel Habits, Change in Stool Character, Coffee Ground Emesis, Constipation, Cramping, Diarrhea, Dyspepsia, Dysphagia, Early Satiety, Excessive Flatus, Fecal Incontinence, Heartburn, Hematemesis, Hematochezia, Loose Stools, Melena, Nausea, Odynophagia, Temesmus, Vomiting, Other - Genitourinary Genitourinary: As Per HPI - Musculoskeletal Musculoskeletal: As Per HPI - Integumentary Integumentary: As Per HPI, Skin Pain - Neurological Neurological: As Per HPI, Tingling - Psychiatric Psychiatric: absent: As Per HPI, Abnormal Sleep Pattern, Anhedonia, Anxiety, Auditory Hallucinations, Behavioral Changes, Change in Appetite, Change in Libido, Confusion, Depression, Difficulty Concentrating, Hallucinations, Homicidal Ideation, Hopelessness, Irritability, Memory Loss, Mood Swings, Panic Attacks, Paranoia, Suicidal Ideation, Visual Hallucinations, Tactile Hallucinations, Other - Endocrine Endocrine: As Per HPI - Hematologic/Lymphatic Hematologic: absent: As Per HPI, Easy Bleeding, Easy Bruising, Lymphadenopathy, Other Past Patient History - Infectious Disease Hx of Infectious Diseases: None - Past Medical History & Family History Past Medical History?: Yes - Past Social History Smoking Status: Former Smoker - CARDIAC Hx Hypertension: Yes - PULMONARY Hx Chronic Obstructive Pulmonary Disease (COPD): Yes - NEUROLOGICAL Hx Neurological Disorder: No - HEENT Hx HEENT Problems: No - RENAL Hx Renal Failure: Yes - ENDOCRINE/METABOLIC Hx Diabetes Mellitus Type 2: Yes - HEMATOLOGICAL/ONCOLOGICAL Hx Anemia: Yes - INTEGUMENTARY Hx Dermatological Problems: Yes Hx Cellulitis: Yes - MUSCULOSKELETAL/RHEUMATOLOGICAL Hx Falls: Yes - GASTROINTESTINAL Hx Gastrointestinal Disorders: Yes Hx Gastroesophageal Reflux: Yes - GENITOURINARY/GYNECOLOGICAL Hx Genitourinary Disorders: No - PSYCHIATRIC Hx Substance Use: No - SURGICAL HISTORY Hx Surgeries: Yes (Left arm AV Fistula) Hx Vascular Surgery: Yes ([facility]) - ANESTHESIA Hx Anesthesia: Yes Hx Anesthesia Reactions: No Hx Malignant Hyperthermia: No Has any member of the family had a problem w/ anesthesia?: No Meds Allergies/Adverse Reactions: Allergies Allergy/AdvReac Type Severity Reaction Status Date / Time piperacillin AdvReac ITCHING, Verified 02/24/17 14:06 SHORTNESS OF BREATH PET DANDER Allergy Severe CONGESTION Uncoded 01/13/17 12:23 - Medications Medications: Current Medications Acetaminophen (Tylenol 325mg Tab) 650 mg PO Q6 PRN PRN Reason: Fever >100.4 F Last Admin: 02/25/17 00:44 Dose: 650 mg Famotidine (Pepcid) 20 mg PO DAILY [facility] Heparin Sodium (Porcine) (Heparin) 5,000 units SC Q8H [facility] Last Admin: 02/25/17 14:07 Dose: Not Given Hydromorphone HCl (Dilaudid) 1 mg IVP Q4H PRN PRN Reason: Pain, severe (8-10) Last Admin: 02/25/17 14:58 Dose: 1 mg Sodium Chloride (Sodium Chloride 0.9%) 1,000 mls @ 75 mls/hr IV .[id number] [facility] Last Admin: 02/24/17 19:12 Dose: 75 mls/hr Vancomycin/Sodium Chloride (Vancocin) 200 mls @ 133 mls/hr IVPB TTS [facility] Stop: 03/04/17 10:01 Cefepime HCl 1 gm/ Dextrose 50 mls @ 100 mls/hr IVPB Q12H [facility] Last Admin: 02/25/17 10:43 Dose: 100 mls/hr Sodium Chloride (Sodium Chloride 0.9%) 1,000 mls @ 100 mls/hr IV .Q10H [facility] Morphine Sulfate (Morphine) 2 mg IVP Q3 PRN PRN Reason: Pain, moderate (4-7) Last Admin: 02/25/17 17:26 Dose: 2 mg Nystatin (Nystop Topical Powder) 1 gm TOP Q12H [facility] Last Admin: 02/24/17 20:00 Dose: 1 gm Ondansetron HCl (Zofran Inj) 4 mg IVP Q6 PRN PRN Reason: Nausea/Vomiting Polyethylene Glycol (Miralax) 17 gm PO DAILY [facility] Last Admin: 02/25/17 16:00 Dose: Not Given Saccharomyces Boulardii (Florastor) 250 mg PO Q12H [facility] Last Admin: 02/25/17 17:40 Dose: 250 mg Physical Exam - Constitutional Appears: Non-toxic, Chronically Ill - Head Exam Head Exam: NORMOCEPHALIC - Eye Exam Eye Exam: PERRL. absent: Scleral icterus - ENT Exam ENT Exam: Mucous Membranes Dry, Normal External Ear Exam - Neck Exam Neck exam: Negative for: Lymphadenopathy - Respiratory Exam Respiratory Exam: Decreased Breath Sounds, Rhonchi - Cardiovascular Exam Cardiovascular Exam: REGULAR RHYTHM, +S1, +S2 - GI/Abdominal Exam GI & Abdominal Exam: Diminished Bowel Sounds, Soft. absent: Tenderness - Rectal Exam Rectal Exam: Deferred - Exam Exam: NORMAL INSPECTION - Extremities Exam Extremities exam: Positive for: pedal edema, tenderness. Negative for: calf tenderness, pedal pulses present - Back Exam Back exam: absent: CVA tenderness (L), CVA tenderness (R), paraspinal tenderness - Neurological Exam Neurological exam: Alert, CN II-XII Intact, Oriented x3 - Psychiatric Exam Psychiatric exam: Normal Mood Results - Vital Signs Recent Vital Signs: Last Vital Signs Temp 98.8 F 02/25/17 16:45 Pulse 92 H 02/25/17 16:45 Resp 20 02/25/17 13:45 BP 133/66 02/25/17 16:45 Pulse Ox 100 02/25/17 16:45 - Labs Result Diagrams: 02/25/17 08:50 02/25/17 08:50 Labs: Laboratory Results - last 24 hr 02/24/17 02/24/17 02/25/17 18:53 21:13 08:50 WBC 23.3 H D RBC 4.28 L Hgb 10.0 L Hct 31.7 L MCV 74.1 L MCH 23.4 L MCHC 31.6 L RDW 18.0 H Plt Count 203 MPV 7.9 Neut % (Auto) 91.6 H Lymph % (Auto) 4.0 L Cassia % (Auto) 4.1 Eos % (Auto) 0.2 Baso % (Auto) 0.1 Neut # 21.3 H Lymph # 0.9 L Cassia # 0.9 H Eos # 0.0 Baso # 0.0 Neutrophils % (Manual) 61 Band Neutrophils % 29 H* Lymphocytes % (Manual) 3 L Monocytes % (Manual) 7 Platelet Estimate Normal Hypochromasia (manual) Slight Poikilocytosis (manual Slight Anisocytosis (manual) Slight Target Cells Slight PT 11.5 INR 1.0 APTT 32 29 Sodium 133 Potassium 4.1 Chloride 87 L Carbon Dioxide 32 H Anion Gap 18 BUN 36 H Creatinine 3.5 H Est GFR ( Amer) 23 Est GFR (Non-Af Amer) 19 Random Glucose 136 H Lactic Acid 3.9 H Calcium 8.2 L Total Bilirubin 1.2 AST 26 ALT 20 L Alkaline Phosphatase 72 Total Protein 7.3 Albumin 3.4 L Globulin 3.9 Albumin/Globulin Ratio 0.9 L Procalcitonin 16.64 H 02/25/17 13:48 WBC RBC Hgb Hct MCV MCH MCHC RDW Plt Count MPV Neut % (Auto) Lymph % (Auto) Cassia % (Auto) Eos % (Auto) Baso % (Auto) Neut # Lymph # Cassia # Eos # Baso # Neutrophils % (Manual) Band Neutrophils % Lymphocytes % (Manual) Monocytes % (Manual) Platelet Estimate Hypochromasia (manual) Poikilocytosis (manual Anisocytosis (manual) Target Cells PT INR APTT Sodium Potassium Chloride Carbon Dioxide Anion Gap BUN Creatinine Est GFR ( Amer) Est GFR (Non-Af Amer) Random Glucose Lactic Acid 1.2 Calcium Total Bilirubin AST ALT Alkaline Phosphatase Total Protein Albumin Globulin Albumin/Globulin Ratio Procalcitonin Assessment & Plan (1) Acute renal failure syndrome Status: Acute (2) Anemia Status: Acute Diagnosis Date: 05/29/14 (3) Asthma Status: Acute (4) Bandemia Status: Acute (5) Cellulitis Status: Acute (6) Cellulitis and abscess of leg Status: Acute (7) Chronic lymphadenitis Status: Acute (8) Diabetes Status: Acute
[2017-02-26] MEDS: Nystatin 100,000 Units/gm Topical Pow(15 gm) TOP SCH ×3 (05:31→21:08)
[2017-02-26] MEDS: Saccharomyces Boulardi 250 mg Cap PO SCH ×2 (05:34→17:15)
[2017-02-26 07:44] LABS: BASO % 0.1 % (0.0-2.0); EOS # 0.2 K/uL (0.0-0.7); EOS % 1.1 % (0.0-4.0); HEMATOCRIT 29.4 % (35.0-51.0); LYMPH # 1.4 K/uL (1.0-4.3); LYMPH % 6.8 % (20.0-40.0); MEAN CELL VOLUME 74.1 fL (80.0-94.0); MEAN CORPUSCULAR HEMOGLOBIN 23.1 pg (27.0-31.0); MEAN CORPUSCULAR HGB CONC 31.1 g/dL (33.0-37.0); MEAN PLATELET VOLUME 8.1 fL (7.2-11.7); MONO # 1.3 K/uL (0.0-0.8); MONO % 6.1 % (0.0-10.0); PLATELET COUNT 186 K/uL (130-400); RED CELL DISTRIBUTION WIDTH 17.7 % (11.5-14.5); WHITE BLOOD COUNT 20.9 K/uL (4.8-10.8)
[2017-02-26 08:01] LABS: BILIRUBIN,TOTAL 0.9 mg/dL (0.2-1.3)
[2017-02-26 08:02] LABS: CALCIUM 8.2 mg/dl (8.6-10.4)
[2017-02-26] MEDS ORDERED: Sodium Chloride 0.9% 1,000 ML IV SCH (08:15)
[2017-02-26] MEDS ORDERED: Hemorrohoidal Ointment (2 oz) TOP SCH ×3 (08:30→09:21)
[2017-02-26 08:34] LABS: ALB/GLOB RATIO 0.8 (1.0-2.1); MAGNESIUM 1.6 mg/dL (1.6-2.3); PHOSPHOROUS 4.4 mg/dL (2.5-4.5); TOTAL PROTEIN 7.2 g/dL (6.3-8.3)
[2017-02-26 08:49] LABS: POTASSIUM 3.7 mmol/L (3.6-5.2)
[2017-02-26] MEDS: HYDROmorphone 1 mg/ml ISec IVP PRN ×2 (09:08→13:16)
[2017-02-26 09:20] LABS: EOSINOPHIL 1 % (0-4); NEUTROPHIL 65 % (50-75); TOTAL CELLS COUNTED 100
[2017-02-26] MEDS: POLYETHYLENE GLYCOL 3350 17 GM/Dose PACKET PO SCH (09:45)
--- NOTE | 2017-02-26 10:35 | VASCLAB ---
PROCEDURE: Right Lower Extremity Venous Duplex Exam. HISTORY: R/O DVT PRIORS: None. TECHNIQUE: Right common femoral, femoral, popliteal and posterior tibial, peroneal and great saphenous veins were evaluated. Flow was assessed with color Doppler, compressibility, assessment of phasic flow and augmentation response. Report prepared by SCARLET Moreno, RVT FINDINGS: RIGHT: 1. Common Femoral Vein: 1.1. Compressibility - Fully compressible: Thrombus - None: Flow - Phasic: Augmentation -Normal: Reflux - None. 2. Femoral Vein: 2.1. Compressibility - Fully compressible: Thrombus - None: Flow - Phasic: Augmentation -Normal: Reflux - None. 3. Popliteal Vein: 3.1. Compressibility - Fully compressible: Thrombus - None: Flow - Phasic: Augmentation -Normal: Reflux - None. 4. Posterior Tibial Vein: 4.1. Compressibility - Not optimally obtained. 5. Peroneal Vein: 5.1. Compressibility - Not optimally obtained. 6. Great Saphenous Vein: 6.1. Compressibility - Fully compressible: Thrombus -None: Flow - Phasic: Augmentation - Normal: Reflux - None. OTHER FINDINGS: Due to swelling in the calf, the right peroneal and posterior tibial vein are not visualized. IMPRESSION: No evidence of deep or superficial vein thrombosis of the right lower extremity with excellent venous flow. Normal valve function noted of the right side. Normal venous flow noted in the left common femoral vein.
[2017-02-26] MEDS: PRAMOXINE TP SCH ×4 (11:00→21:08)
[2017-02-26] MEDS: ZINC OXIDE TP SCH ×4 (11:00→21:08)
--- NOTE | 2017-02-26 14:40 | CP.PCM.PN ---
Subjective - Date & Time of Evaluation Date of Evaluation: 02/26/17 Time of Evaluation: 14:37 - Subjective Subjective: s/p dialysis 02/25- UF 3000ml Right LE still swollen- sl less tender No new complaints Mostly confined to bedrest now while under treatment Labs acceptable No n, v, SOB, chest pains; remains depressed Objective - Vital Signs/Intake and Output Vital Signs (last 24 hours): Temp Pulse Resp BP Pulse Ox 98.7 F 82 20 132/76 96 02/26/17 07:38 02/26/17 07:38 02/26/17 07:38 02/26/17 07:38 02/26/17 07:38 Intake and Output: 02/26/17 02/26/17 06:59 18:59 Intake Total 200 Output Total 150 Balance 50 - Medications Medications: Current Medications Acetaminophen (Tylenol 325mg Tab) 650 mg PO Q6 PRN PRN Reason: Fever >100.4 F Last Admin: 02/25/17 00:44 Dose: 650 mg Famotidine (Pepcid) 20 mg PO DAILY [facility] Last Admin: 02/26/17 09:46 Dose: 20 mg Heparin Sodium (Porcine) (Heparin) 5,000 units SC Q8H [facility] Last Admin: 02/26/17 05:40 Dose: 5,000 units Hydromorphone HCl (Dilaudid) 1 mg IVP Q4H PRN PRN Reason: Pain, severe (8-10) Last Admin: 02/26/17 13:16 Dose: 1 mg Vancomycin/Sodium Chloride (Vancocin) 200 mls @ 133 mls/hr IVPB TTS [facility] Stop: 03/04/17 10:01 Cefepime HCl 1 gm/ Dextrose 50 mls @ 100 mls/hr IVPB Q12H [facility] Last Admin: 02/26/17 11:08 Dose: 100 mls/hr Sodium Chloride (Sodium Chloride 0.9%) 1,000 mls @ 100 mls/hr IV .Q10H [facility] Morphine Sulfate (Morphine) 2 mg IVP Q3 PRN PRN Reason: Pain, moderate (4-7) Last Admin: 02/26/17 05:17 Dose: 2 mg Nystatin (Nystop Topical Powder) 1 gm TOP Q12H [facility] Last Admin: 02/26/17 05:31 Dose: 1 gm Ondansetron HCl (Zofran Inj) 4 mg IVP Q6 PRN PRN Reason: Nausea/Vomiting Polyethylene Glycol (Miralax) 17 gm PO DAILY [facility] Last Admin: 02/26/17 09:45 Dose: 17 gm Pramoxine HCl (Tronolane) 1 TP 5XD [facility] Saccharomyces Boulardii (Florastor) 250 mg PO Q12H [facility] Last Admin: 02/26/17 05:34 Dose: 250 mg - Labs Labs: 02/26/17 07:30 02/26/17 07:30 PT 11.5 SECONDS (9.7-12.2) 02/24/17 21:13 INR 1.0 02/24/17 21:13 APTT 30 SECONDS (21-34) 02/26/17 07:30 - Constitutional Appears: No Acute Distress, Chronically Ill - Head Exam Head Exam: ATRAUMATIC, NORMAL INSPECTION - Eye Exam Eye Exam: EOMI, Normal appearance - Neck Exam Neck Exam: Normal Inspection. absent: Tenderness - Respiratory Exam Respiratory Exam: Clear to Ausculation Bilateral, NORMAL BREATHING PATTERN - Cardiovascular Exam Cardiovascular Exam: REGULAR RHYTHM, +S1 - GI/Abdominal Exam GI & Abdominal Exam: Soft. absent: Tenderness - Extremities Exam Extremities Exam: Pedal Edema, Tenderness - Neurological Exam Neurological Exam: Awake, CN II-XII Intact - Skin Skin Exam: Dry, Warm Assessment and Plan (1) Cellulitis Status: Acute (2) ESRD on hemodialysis Status: Acute (3) Hypertension Status: Acute (4) Lymphedema of lower extremity Status: Chronic - Assessment and Plan (Free Text) Plan: Continue IV ABs as per ID Dialysis TTS follow up labs as needed
[2017-02-26] MEDS: Sodium Chloride 0.9% 1,000 ML IV SCH (16:43)
--- NOTE | 2017-02-26 17:43 | CP.PCM.PN ---
<Cindy Albright - Last Filed: 02/26/17 17:40> Subjective - Date & Time of Evaluation Date of Evaluation: 02/26/17 Time of Evaluation: 09:15 - Subjective Subjective: Internal medicine progress note for Hospitalist service- Cindy Albright, PGY-1 Pt S & E at bedside. Pt reports RLE pain controlled, no problems overnight. Denies N/V/F/C, SOB, CP , abdominal pain. Objective - Vital Signs/Intake and Output Vital Signs (last 24 hours): Temp Pulse Resp BP Pulse Ox 98.5 F 84 22 111/68 95 02/26/17 15:05 02/26/17 15:05 02/26/17 15:05 02/26/17 15:05 02/26/17 15:05 Intake and Output: 02/26/17 02/26/17 06:59 18:59 Intake Total 200 Output Total 150 Balance 50 - Medications Medications: Current Medications Acetaminophen (Tylenol 325mg Tab) 650 mg PO Q6 PRN PRN Reason: Fever >100.4 F Last Admin: 02/25/17 00:44 Dose: 650 mg Epoetin Ventura (Procrit) 10,000 unit IV TTS [facility] Famotidine (Pepcid) 20 mg PO DAILY [facility] Last Admin: 02/26/17 09:46 Dose: 20 mg Heparin Sodium (Porcine) (Heparin) 5,000 units SC Q8H [facility] Last Admin: 02/26/17 15:42 Dose: 5,000 units Hydromorphone HCl (Dilaudid) 2 mg IVP Q4H PRN PRN Reason: Pain, severe (8-10) Last Admin: 02/26/17 17:31 Dose: 2 mg Vancomycin/Sodium Chloride (Vancocin) 200 mls @ 133 mls/hr IVPB TTS [facility] Stop: 03/04/17 10:01 Cefepime HCl 1 gm/ Dextrose 50 mls @ 100 mls/hr IVPB Q12H [facility] Last Admin: 02/26/17 11:08 Dose: 100 mls/hr Sodium Chloride (Sodium Chloride 0.9%) 1,000 mls @ 75 mls/hr IV .[id number] [facility] Nystatin (Nystop Topical Powder) 1 gm TOP Q12H [facility] Last Admin: 02/26/17 05:31 Dose: 1 gm Ondansetron HCl (Zofran Inj) 4 mg IVP Q6 PRN PRN Reason: Nausea/Vomiting Polyethylene Glycol (Miralax) 17 gm PO DAILY [facility] Last Admin: 02/26/17 09:45 Dose: 17 gm Pramoxine HCl (Tronolane) 1 TP 5XD [facility] Last Admin: 02/26/17 14:00 Dose: Not Given Saccharomyces Boulardii (Florastor) 250 mg PO Q12H [facility] Last Admin: 02/26/17 17:15 Dose: 250 mg - Labs Labs: 02/26/17 07:30 02/26/17 07:30 PT 11.5 SECONDS (9.7-12.2) 02/24/17 21:13 INR 1.0 02/24/17 21:13 APTT 30 SECONDS (21-34) 02/26/17 07:30 - Constitutional Appears: Non-toxic, No Acute Distress - Head Exam Head Exam: ATRAUMATIC, NORMAL INSPECTION, NORMOCEPHALIC - Eye Exam Eye Exam: EOMI, Normal appearance, PERRL Pupil Exam: NORMAL ACCOMODATION, PERRL - ENT Exam ENT Exam: Mucous Membranes Moist, Normal Exam - Neck Exam Neck Exam: Full ROM, Normal Inspection - Respiratory Exam Respiratory Exam: Clear to Ausculation Bilateral, NORMAL BREATHING PATTERN. absent: Rales, Rhonchi, Wheezes - Cardiovascular Exam Cardiovascular Exam: REGULAR RHYTHM, +S1, +S2 - GI/Abdominal Exam GI & Abdominal Exam: Soft, Normal Bowel Sounds. absent: Distended (morbidly obese), Tenderness - Extremities Exam Extremities Exam: Pedal Edema, Tenderness. absent: Full ROM, Normal Inspection Additional comments: RLE w/erythema, tenderness to palpation, swelling compared to LLE- improving. Fat folds with powder applied. - Back Exam Back Exam: Full ROM, NORMAL INSPECTION - Neurological Exam Neurological Exam: Alert, Awake, CN II-XII Intact, Oriented x3 - Psychiatric Exam Psychiatric exam: Normal Affect, Normal Mood - Skin Skin Exam: Dry, Erythema (of RLE, diffuse), Intact, Warm. absent: Normal Color Assessment and Plan - Assessment and Plan (Free Text) Assessment: R lower extremity cellulitis, Sepsis Leukocytosis of 20.9 from 23.3 Bandemia 29 from 37 Febrile over last 24H, Tmax 100.3 Tylenol PRN F Tachycardia Procalcitonin 16.64 LA 1.2 from 3.9 from 3.0 Blood Cxr neg x 24H FU urine cxr FU Legionella FU Mycoplasma Doppler U/S of RLE neg for DVT U/S of R/L medial thigh to R/o abscess neg for abscess Colace switched to Miralax per pt request Zofran Dilaudid 1mg Q4H PRN increased to 2mg Q4H PRN per Dr. Tomlinson Cont Morphine 2mg Q3H PRN Floraster 250mg BID Cefepime 1gm Q12H Vancomycin 1gm Q12H and with HD Nystatin topical Wound care Q12H Bolus of 500cc NS given IVF - NS@100 ID consulted- Mangia- FU recs ICU consulted- Caitlin ESRD on HD Renal diet NS@75 Nephro consulted- Nakul - HD TTS FU CXR after HD on 02/27 Hx asthma FU CXR on 02/27 after HD O2 PRN Hemorrhoids Preparation H ordered GI/DVT ppx SCDs contraindicated due to intolerance/infection Heparin Pepcid Dispo: HD as per nephro- TTS Cont current mgmt Renal/dialysis diet Ambulate with assistance PT/OT LUE precautions 2/2 AV graft/stents FU ID recs SW consulted for home nursing wound care services and applying for Medicaid help - spoke with them today- pt refusing [facility] placement DW attending <Rohini Tomlinson V - Last Filed: 02/28/17 22:40> Objective - Vital Signs/Intake and Output Vital Signs (last 24 hours): Temp Pulse Resp BP Pulse Ox 99.0 F 64 20 105/73 93 L 02/28/17 08:00 02/28/17 08:00 02/28/17 08:00 02/28/17 08:00 02/28/17 08:00 Intake and Output: 02/28/17 03/01/17 18:59 06:59 Intake Total 1040 Balance 1040 - Medications Medications: Current Medications Acetaminophen (Tylenol 325mg Tab) 650 mg PO Q6 PRN PRN Reason: Fever >100.4 F Last Admin: 02/25/17 00:44 Dose: 650 mg Epoetin Ventura (Procrit) 10,000 unit IV TTS [facility] Famotidine (Pepcid) 20 mg PO DAILY [facility] Last Admin: 02/28/17 10:50 Dose: 20 mg Heparin Sodium (Porcine) (Heparin) 5,000 units SC Q8H [facility] Last Admin: 02/28/17 21:43 Dose: 5,000 units Hydromorphone HCl (Dilaudid) 1 mg IVP Q4H PRN PRN Reason: Pain, severe (8-10) Last Admin: 02/28/17 22:18 Dose: 1 mg Cefepime HCl 1 gm/ Dextrose 50 mls @ 100 mls/hr IVPB Q12H [facility] Last Admin: 02/28/17 22:10 Dose: 100 mls/hr Sodium Chloride (Sodium Chloride 0.9%) 1,000 mls @ 75 mls/hr IV .[id number] [facility] Last Admin: 02/28/17 21:49 Dose: 75 mls/hr Vancomycin/Sodium Chloride (Vancocin) 200 mls @ 133 mls/hr IVPB TTS [facility] Stop: 03/04/17 17:01 Last Admin: 02/27/17 17:30 Dose: 133 mls/hr Nystatin (Nystop Topical Powder) 1 gm TOP Q12H [facility] Last Admin: 02/28/17 18:10 Dose: 1 gm Ondansetron HCl (Zofran Inj) 4 mg IVP Q6 PRN PRN Reason: Nausea/Vomiting Polyethylene Glycol (Miralax) 17 gm PO DAILY [facility] Last Admin: 02/28/17 10:50 Dose: 17 gm Pramoxine HCl (Tronolane) 1 TP 5XD [facility] Last Admin: 02/28/17 20:50 Dose: 1 cre Saccharomyces Boulardii (Florastor) 250 mg PO Q12H [facility] Last Admin: 02/28/17 18:09 Dose: 250 mg - Labs Labs: 02/28/17 08:17 02/28/17 08:17 PT 11.5 SECONDS (9.7-12.2) 02/24/17 21:13 INR 1.0 02/24/17 21:13 APTT 29 SECONDS (21-34) 02/28/17 08:17 Attending/Attestation - Attestation I have personally seen and examined this patient.: Yes I have fully participated in the care of the patient.: Yes I have reviewed all pertinent clinical information, including history, physical exam and plan: Yes Notes (Text): This is late computer entry for 3/31/17. patient seen, examined and case discussed with day-time resident. Patient to continue IV antibiotic treatment for sepsis secondary to right lower extremity cellulitis. Leukocytosis improving. Patient ordered for urine culture, legionella, and mycoplasma rule out other causes of infectious. Patient's pain medication adjusted given cellulitis is quite extensive over the right lower extremity. Patient is on IV hydration. patient ordered for repeat chest xray post-dialysis to see if congestion and/or opacities improved. Social work consulted to see if patient eligible for any home services in regards of maintenace of his lower extremities per recommendation by infectious disease. Discussed with infectious disease, continue current therapy.
--- NOTE | 2017-02-26 19:18 | CP.PCM.PN ---
Subjective - Date & Time of Evaluation Date of Evaluation: 02/26/17 Time of Evaluation: 07:00 - Subjective Subjective: DISCUSSED ON ROUNDS IV RX IN PROGRESS REFUSING [facility] CONT RX Objective - Vital Signs/Intake and Output Vital Signs (last 24 hours): Temp Pulse Resp BP Pulse Ox 98.5 F 84 22 111/68 95 02/26/17 15:05 02/26/17 15:05 02/26/17 15:05 02/26/17 15:05 02/26/17 15:05 - Medications Medications: Current Medications Acetaminophen (Tylenol 325mg Tab) 650 mg PO Q6 PRN PRN Reason: Fever >100.4 F Last Admin: 02/25/17 00:44 Dose: 650 mg Epoetin Ventura (Procrit) 10,000 unit IV TTS [facility] Famotidine (Pepcid) 20 mg PO DAILY [facility] Last Admin: 02/26/17 09:46 Dose: 20 mg Heparin Sodium (Porcine) (Heparin) 5,000 units SC Q8H [facility] Last Admin: 02/26/17 15:42 Dose: 5,000 units Hydromorphone HCl (Dilaudid) 2 mg IVP Q4H PRN PRN Reason: Pain, severe (8-10) Last Admin: 02/26/17 17:31 Dose: 2 mg Vancomycin/Sodium Chloride (Vancocin) 200 mls @ 133 mls/hr IVPB TTS [facility] Stop: 03/04/17 10:01 Cefepime HCl 1 gm/ Dextrose 50 mls @ 100 mls/hr IVPB Q12H [facility] Last Admin: 02/26/17 11:08 Dose: 100 mls/hr Sodium Chloride (Sodium Chloride 0.9%) 1,000 mls @ 75 mls/hr IV .[id number] [facility] Nystatin (Nystop Topical Powder) 1 gm TOP Q12H [facility] Last Admin: 02/26/17 05:31 Dose: 1 gm Ondansetron HCl (Zofran Inj) 4 mg IVP Q6 PRN PRN Reason: Nausea/Vomiting Polyethylene Glycol (Miralax) 17 gm PO DAILY [facility] Last Admin: 02/26/17 09:45 Dose: 17 gm Pramoxine HCl (Tronolane) 1 TP 5XD [facility] Last Admin: 02/26/17 14:00 Dose: Not Given Saccharomyces Boulardii (Florastor) 250 mg PO Q12H [facility] Last Admin: 02/26/17 17:15 Dose: 250 mg - Labs Labs: 02/26/17 07:30 02/26/17 07:30 PT 11.5 SECONDS (9.7-12.2) 02/24/17 21:13 INR 1.0 02/24/17 21:13 APTT 30 SECONDS (21-34) 02/26/17 07:30 - Constitutional Appears: Non-toxic, Chronically Ill - Head Exam Head Exam: NORMOCEPHALIC - Eye Exam Eye Exam: absent: Scleral icterus - ENT Exam ENT Exam: Mucous Membranes Dry - Neck Exam Neck Exam: absent: Thyromegaly - Respiratory Exam Respiratory Exam: Decreased Breath Sounds, Clear to Ausculation Bilateral - Cardiovascular Exam Cardiovascular Exam: REGULAR RHYTHM, +S1, +S2 - GI/Abdominal Exam GI & Abdominal Exam: Distended, Soft - Rectal Exam Rectal Exam: Deferred - Exam Exam: NORMAL INSPECTION - Extremities Exam Extremities Exam: Pedal Edema, Tenderness. absent: Calf Tenderness - Back Exam Back Exam: absent: CVA tenderness (L), CVA tenderness (R) - Neurological Exam Neurological Exam: Alert, Awake, Oriented x3 Assessment and Plan (1) Acute renal failure syndrome Status: Acute (2) Anemia Status: Acute (3) Asthma Status: Acute (4) Bandemia Status: Acute (5) Cellulitis Status: Acute (6) Cellulitis and abscess of leg Status: Acute (7) Chronic lymphadenitis Status: Acute (8) Diabetes Status: Acute
[2017-02-27] MEDS: Nystatin 100,000 Units/gm Topical Pow(15 gm) TOP SCH ×2 (05:26→17:56)
[2017-02-27] MEDS: Saccharomyces Boulardi 250 mg Cap PO SCH ×2 (05:30→17:51)
[2017-02-27] MEDS: Sodium Chloride 0.9% 1,000 ML IV SCH ×3 (06:05→19:30)
[2017-02-27 07:40] LABS: LEGIONELLA AG URINE NEGATIVE (NEGATIVE)
--- NOTE | 2017-02-27 07:43 | CP.PCM.PN ---
<Shandra Major - Last Filed: 02/27/17 12:25> Subjective - Date & Time of Evaluation Date of Evaluation: 02/27/17 Time of Evaluation: 08:15 - Subjective Subjective: PGY1 Medicine Note for Dr. Tomlinson Patient seen and examined at bedside. Patient had no acute events overnight as per nursing and had no acute complaints this AM upon examination. Patient reported sleeping well and that the pain in his RLE had improved. Patient for HD today. Patient denied fever, chills, chest pain, palpitations, SOB, cough, abdominal pain, nausea, vomiting, bowel/bladder complaints, rash. Patient continuing to refuse [facility]. Objective - Vital Signs/Intake and Output Vital Signs (last 24 hours): Temp Pulse Resp BP Pulse Ox 97.8 F 78 20 127/68 96 02/27/17 00:47 02/27/17 00:47 02/27/17 00:47 02/27/17 00:47 02/27/17 00:47 Intake and Output: 02/27/17 02/27/17 06:59 18:59 Intake Total 600 Balance 600 - Medications Medications: Current Medications Acetaminophen (Tylenol 325mg Tab) 650 mg PO Q6 PRN PRN Reason: Fever >100.4 F Last Admin: 02/25/17 00:44 Dose: 650 mg Epoetin Ventura (Procrit) 10,000 unit IV TTS [facility] Famotidine (Pepcid) 20 mg PO DAILY [facility] Last Admin: 02/26/17 09:46 Dose: 20 mg Heparin Sodium (Porcine) (Heparin) 5,000 units SC Q8H [facility] Last Admin: 02/27/17 05:26 Dose: 5,000 units Hydromorphone HCl (Dilaudid) 2 mg IVP Q4H PRN PRN Reason: Pain, severe (8-10) Last Admin: 02/27/17 06:05 Dose: 2 mg Vancomycin/Sodium Chloride (Vancocin) 200 mls @ 133 mls/hr IVPB TTS [facility] Stop: 03/04/17 10:01 Cefepime HCl 1 gm/ Dextrose 50 mls @ 100 mls/hr IVPB Q12H [facility] Last Admin: 02/26/17 22:02 Dose: 100 mls/hr Sodium Chloride (Sodium Chloride 0.9%) 1,000 mls @ 75 mls/hr IV .[id number] [facility] Last Admin: 02/26/17 16:43 Dose: Not Given Nystatin (Nystop Topical Powder) 1 gm TOP Q12H [facility] Last Admin: 02/27/17 05:26 Dose: 1 gm Ondansetron HCl (Zofran Inj) 4 mg IVP Q6 PRN PRN Reason: Nausea/Vomiting Polyethylene Glycol (Miralax) 17 gm PO DAILY [facility] Last Admin: 02/26/17 09:45 Dose: 17 gm Pramoxine HCl (Tronolane) 1 TP 5XD [facility] Last Admin: 02/26/17 21:08 Dose: 1 cre Saccharomyces Boulardii (Florastor) 250 mg PO Q12H [facility] Last Admin: 02/27/17 05:30 Dose: 250 mg - Labs Labs: 02/26/17 07:30 02/26/17 07:30 PT 11.5 SECONDS (9.7-12.2) 02/24/17 21:13 INR 1.0 02/24/17 21:13 APTT 30 SECONDS (21-34) 02/26/17 07:30 - Constitutional Appears: Non-toxic, No Acute Distress - Head Exam Head Exam: NORMAL INSPECTION - Eye Exam Eye Exam: Normal appearance. absent: Conjunctival injection, Scleral icterus - ENT Exam ENT Exam: Mucous Membranes Moist - Neck Exam Neck Exam: Normal Inspection - Respiratory Exam Respiratory Exam: Clear to Ausculation Bilateral, NORMAL BREATHING PATTERN. absent: Rales, Rhonchi, Wheezes - Cardiovascular Exam Cardiovascular Exam: REGULAR RHYTHM, RRR, +S1, +S2 - GI/Abdominal Exam GI & Abdominal Exam: Soft, Normal Bowel Sounds. absent: Firm, Guarding, Rigid, Tenderness - Extremities Exam Extremities Exam: Pedal Edema, Tenderness (RLE to palpation). absent: Normal Inspection Additional comments: b/l lymphedema tender to palpation RLE - Neurological Exam Neurological Exam: Alert, Awake, Oriented x3 - Psychiatric Exam Psychiatric exam: Normal Affect, Normal Mood - Skin Skin Exam: Dry, Intact, Normal Color, Warm Assessment and Plan - Assessment and Plan (Free Text) Plan: R lower extremity cellulitis, Sepsis WBC 15.3 Afebrile overnight Procalcitonin 16.64 LA 1.2 Blood Cxr neg x 24H urine culture negative legionella and mycoplasma negative Doppler U/S of RLE neg for DVT U/S of R/L medial thigh to R/o abscess neg for abscess Colace switched to Miralax per pt request Zofran 4mg IVP Q6 PRN n/v Dilaudid 2mg Q4H PRN Floraster 250mg BID Cefepime 1gm Q12H Vancomycin 1gm Q12H and with HD Nystatin topical Wound care Q12H IVF - NS@75 ID consulted- Mangia ESRD on HD Renal diet NS@75 Nephro consulted- Nakul - HD TTS FU CXR after HD on 02/27 Hx asthma FU CXR on 02/27 after HD O2 PRN Hemorrhoids Preparation H ordered PPX SCDs contraindicated due to intolerance/infection Heparin Pepcid Renal/dialysis diet Ambulate with assistance PT/OT LUE precautions 12/31 AV graft/stents Likely d/c 02/28/17 DW attending Shandra Major PGY1 <Rohini Tomlinson V - Last Filed: 02/28/17 22:35> Objective - Vital Signs/Intake and Output Vital Signs (last 24 hours): Temp Pulse Resp BP Pulse Ox 99.0 F 64 20 105/73 93 L 02/28/17 08:00 02/28/17 08:00 02/28/17 08:00 02/28/17 08:00 02/28/17 08:00 Intake and Output: 02/28/17 03/01/17 18:59 06:59 Intake Total 1040 Balance 1040 - Medications Medications: Current Medications Acetaminophen (Tylenol 325mg Tab) 650 mg PO Q6 PRN PRN Reason: Fever >100.4 F Last Admin: 02/25/17 00:44 Dose: 650 mg Epoetin Ventura (Procrit) 10,000 unit IV TTS [facility] Famotidine (Pepcid) 20 mg PO DAILY [facility] Last Admin: 02/28/17 10:50 Dose: 20 mg Heparin Sodium (Porcine) (Heparin) 5,000 units SC Q8H [facility] Last Admin: 02/28/17 21:43 Dose: 5,000 units Hydromorphone HCl (Dilaudid) 1 mg IVP Q4H PRN PRN Reason: Pain, severe (8-10) Last Admin: 02/28/17 22:18 Dose: 1 mg Cefepime HCl 1 gm/ Dextrose 50 mls @ 100 mls/hr IVPB Q12H [facility] Last Admin: 02/28/17 22:10 Dose: 100 mls/hr Sodium Chloride (Sodium Chloride 0.9%) 1,000 mls @ 75 mls/hr IV .[id number] [facility] Last Admin: 02/28/17 21:49 Dose: 75 mls/hr Vancomycin/Sodium Chloride (Vancocin) 200 mls @ 133 mls/hr IVPB TTS [facility] Stop: 03/04/17 17:01 Last Admin: 02/27/17 17:30 Dose: 133 mls/hr Nystatin (Nystop Topical Powder) 1 gm TOP Q12H [facility] Last Admin: 02/28/17 18:10 Dose: 1 gm Ondansetron HCl (Zofran Inj) 4 mg IVP Q6 PRN PRN Reason: Nausea/Vomiting Polyethylene Glycol (Miralax) 17 gm PO DAILY [facility] Last Admin: 02/28/17 10:50 Dose: 17 gm Pramoxine HCl (Tronolane) 1 TP 5XD [facility] Last Admin: 02/28/17 20:50 Dose: 1 cre Saccharomyces Boulardii (Florastor) 250 mg PO Q12H [facility] Last Admin: 02/28/17 18:09 Dose: 250 mg - Labs Labs: 02/28/17 08:17 02/28/17 08:17 PT 11.5 SECONDS (9.7-12.2) 02/24/17 21:13 INR 1.0 02/24/17 21:13 APTT 29 SECONDS (21-34) 02/28/17 08:17 Attending/Attestation - Attestation I have personally seen and examined this patient.: Yes I have fully participated in the care of the patient.: Yes I have reviewed all pertinent clinical information, including history, physical exam and plan: Yes Notes (Text): This is late computer entry for 02/27/17. Patient seen, examined and case discussed with day-time resident. Patient's cellulitis improving clinically, and leukocytosis has improved while on IV antibiotic therapy. Continue with empiric IV abx therapy for sepsis secondary to cellulitis. cultures are negative to date. Patient was to have dialysis today, however when reassessed in the afternoon patient reports he has clotted AV access site and did not receive dialysis today. Patient reports he will attempt to call his "access site" to see if they can declot prior to his schedule outpatient dialysis session. Patient is on gentle IV hydration.
[2017-02-27 08:10] LABS: BASO % 0.3 % (0.0-2.0); EOS # 0.5 K/uL (0.0-0.7); EOS % 3.4 % (0.0-4.0); LYMPH % 6.5 % (20.0-40.0); MEAN CELL VOLUME 74.2 fL (80.0-94.0); MEAN CORPUSCULAR HEMOGLOBIN 23.1 pg (27.0-31.0); MEAN CORPUSCULAR HGB CONC 31.1 g/dL (33.0-37.0); MEAN PLATELET VOLUME 8.1 fL (7.2-11.7); MONO # 0.9 K/uL (0.0-0.8); MONO % 5.9 % (0.0-10.0); NRBC % 0.1 % (0.0-2.0); PLATELET COUNT 206 K/uL (130-400); RED CELL DISTRIBUTION WIDTH 17.9 % (11.5-14.5); WHITE BLOOD COUNT 15.3 K/uL (4.8-10.8)
[2017-02-27 08:21] LABS: POTASSIUM 3.5 mmol/L (3.6-5.2)
[2017-02-27 08:23] LABS: ALB/GLOB RATIO 0.8 (1.0-2.1); BILIRUBIN,TOTAL 0.6 mg/dL (0.2-1.3); TOTAL PROTEIN 7.6 g/dL (6.3-8.3)
[2017-02-27 08:24] LABS: CALCIUM 8.8 mg/dl (8.6-10.4)
[2017-02-27 08:25] LABS: RBC URINE 3 /hpf (0-3); URINE BACTERIA RARE (<OCC); URINE BILIRUBIN NEGATIVE (NEGATIVE); URINE BLOOD 1+ (NEGATIVE); URINE COLOR Yellow (YELLOW); URINE GLUCOSE (UA) NORMAL (Normal); URINE KETONE NEGATIVE (NEGATIVE); URINE LEUKOCYTE ESTERASE NEG Leu/uL (Negative); URINE PROTEIN 2+ mg/dL (NEGATIVE); URINE UROBILINOGEN NORMAL mg/dL (0.2-1.0); WBC URINE 6 /hpf (0-5)
[2017-02-27] MEDS ORDERED: Vancomycin 1 gm/NS 200 ml 200 ML IVPB SCH ×2 (10:00→17:00)
[2017-02-27] MEDS ORDERED: EPOETIN ALFA 10,000 UNIT/ML ML IV SCH (10:00)
[2017-02-27] MEDS: POLYETHYLENE GLYCOL 3350 17 GM/Dose PACKET PO SCH (10:16)
[2017-02-27] MEDS: ZINC OXIDE TP SCH ×5 (10:17→20:50)
[2017-02-27] MEDS: PRAMOXINE TP SCH ×5 (10:17→20:50)
[2017-02-27 10:22] LABS: EOSINOPHIL 3 % (0-4); NEUTROPHIL 82 % (50-75); TOTAL CELLS COUNTED 100
--- NOTE | 2017-02-27 11:03 | CP.PCM.PN ---
Subjective - Date & Time of Evaluation Date of Evaluation: 02/27/17 Time of Evaluation: 10:00 - Subjective Subjective: no acute distress HD today no pain in right leg +discharge no chest pain not sob no nausea no vomiting no rash no focal weakness decreased u/o Objective - Vital Signs/Intake and Output Vital Signs (last 24 hours): Temp Pulse Resp BP Pulse Ox 98.1 F 74 20 109/64 95 02/27/17 08:21 02/27/17 08:21 02/27/17 08:21 02/27/17 08:21 02/27/17 08:21 Intake and Output: 02/27/17 02/27/17 06:59 18:59 Intake Total 600 Balance 600 - Medications Medications: Current Medications Acetaminophen (Tylenol 325mg Tab) 650 mg PO Q6 PRN PRN Reason: Fever >100.4 F Last Admin: 02/25/17 00:44 Dose: 650 mg Epoetin Ventura (Procrit) 10,000 unit IV TTS [facility] Famotidine (Pepcid) 20 mg PO DAILY [facility] Last Admin: 02/27/17 10:17 Dose: Not Given Heparin Sodium (Porcine) (Heparin) 5,000 units SC Q8H [facility] Last Admin: 02/27/17 05:26 Dose: 5,000 units Hydromorphone HCl (Dilaudid) 2 mg IVP Q4H PRN PRN Reason: Pain, severe (8-10) Last Admin: 02/27/17 10:11 Dose: 2 mg Vancomycin/Sodium Chloride (Vancocin) 200 mls @ 133 mls/hr IVPB TTS [facility] Stop: 03/04/17 10:01 Cefepime HCl 1 gm/ Dextrose 50 mls @ 100 mls/hr IVPB Q12H [facility] Last Admin: 02/26/17 22:02 Dose: 100 mls/hr Sodium Chloride (Sodium Chloride 0.9%) 1,000 mls @ 75 mls/hr IV .[id number] [facility] Last Admin: 02/26/17 16:43 Dose: Not Given Nystatin (Nystop Topical Powder) 1 gm TOP Q12H [facility] Last Admin: 02/27/17 05:26 Dose: 1 gm Ondansetron HCl (Zofran Inj) 4 mg IVP Q6 PRN PRN Reason: Nausea/Vomiting Polyethylene Glycol (Miralax) 17 gm PO DAILY [facility] Last Admin: 02/27/17 10:16 Dose: Not Given Pramoxine HCl (Tronolane) 1 TP 5XD [facility] Last Admin: 02/27/17 10:17 Dose: 1 cre Saccharomyces Boulardii (Florastor) 250 mg PO Q12H [facility] Last Admin: 02/27/17 05:30 Dose: 250 mg - Labs Labs: 02/27/17 08:03 02/27/17 08:03 PT 11.5 SECONDS (9.7-12.2) 02/24/17 21:13 INR 1.0 02/24/17 21:13 APTT 32 SECONDS (21-34) 02/27/17 08:03 - Constitutional Appears: Chronically Ill - Head Exam Head Exam: ATRAUMATIC - Eye Exam Eye Exam: EOMI, Normal appearance - ENT Exam ENT Exam: Mucous Membranes Moist - Neck Exam Neck Exam: Full ROM. absent: Lymphadenopathy - Respiratory Exam Respiratory Exam: absent: Accessory Muscle Use - Cardiovascular Exam Cardiovascular Exam: REGULAR RHYTHM. absent: Rubs - GI/Abdominal Exam GI & Abdominal Exam: Soft. absent: Tenderness - Extremities Exam Additional comments: bilateral lymphedema right leg with erythema no odor Assessment and Plan - Assessment and Plan (Free Text) Assessment: dialysis dependent recurrent right leg celluitis morbid obesity continue wound care and AB HD ordered
--- NOTE | 2017-02-27 17:42 | CP.PCM.CON ---
History of Present Illness - History of Present Illness History of Present Illness: Vascular Surgery: Dr. Chiu 51M w/PMH of ESRD on HD (Tues, Thurs, Sat), chronic lymph edema, morbid obesity and asthma admitted for sepsis 2/2 RLE cellulitis on 02/24. Vascular surgery was consulted for failure for patient to receive hemodialysis due to clots present in fistula. Currently patient is laying in bed comfortably and has no complaints. Patient denies headaches,fever/chills, palpitations, chest pain/SOB , n/v/d, abdominal pain. Current K+ level is 3.5, BUN/Creat: 44/2.9. Review of vitals is normal. PMH: as stated above PSH: Failed left AVF (radial), L UE AV shunt SH: Quit tobacco use 2 mos ago (hx of 1/2 ppd x 2 yrs), denies ETOH use, denies current illicit drug use Review of Systems - Review of Systems Review of Systems: 12 pt ROS carried out, unremarkable; except as stated in HPI Past Patient History - Infectious Disease Hx of Infectious Diseases: None - Past Medical History & Family History Past Medical History?: Yes - Past Social History Smoking Status: Former Smoker - CARDIAC Hx Hypertension: Yes - PULMONARY Hx Chronic Obstructive Pulmonary Disease (COPD): Yes - NEUROLOGICAL Hx Neurological Disorder: No - HEENT Hx HEENT Problems: No - RENAL Hx Renal Failure: Yes - ENDOCRINE/METABOLIC Hx Diabetes Mellitus Type 2: Yes - HEMATOLOGICAL/ONCOLOGICAL Hx Anemia: Yes - INTEGUMENTARY Hx Dermatological Problems: Yes Hx Cellulitis: Yes - MUSCULOSKELETAL/RHEUMATOLOGICAL Hx Falls: Yes - GASTROINTESTINAL Hx Gastrointestinal Disorders: Yes Hx Gastroesophageal Reflux: Yes - GENITOURINARY/GYNECOLOGICAL Hx Genitourinary Disorders: No - PSYCHIATRIC Hx Substance Use: No - SURGICAL HISTORY Hx Surgeries: Yes (Left arm AV Fistula) Hx Vascular Surgery: Yes ([facility]) - ANESTHESIA Hx Anesthesia: Yes Hx Anesthesia Reactions: No Hx Malignant Hyperthermia: No Has any member of the family had a problem w/ anesthesia?: No Meds Allergies/Adverse Reactions: Allergies Allergy/AdvReac Type Severity Reaction Status Date / Time piperacillin AdvReac ITCHING, Verified 02/24/17 14:06 SHORTNESS OF BREATH PET DANDER Allergy Severe CONGESTION Uncoded 01/13/17 12:23 - Medications Medications: Current Medications Acetaminophen (Tylenol 325mg Tab) 650 mg PO Q6 PRN PRN Reason: Fever >100.4 F Last Admin: 02/25/17 00:44 Dose: 650 mg Epoetin Ventura (Procrit) 10,000 unit IV TTS [facility] Famotidine (Pepcid) 20 mg PO DAILY [facility] Last Admin: 02/27/17 10:17 Dose: Not Given Heparin Sodium (Porcine) (Heparin) 5,000 units SC Q8H [facility] Last Admin: 02/27/17 14:10 Dose: Not Given Hydromorphone HCl (Dilaudid) 1 mg IVP Q4H PRN PRN Reason: Pain, severe (8-10) Cefepime HCl 1 gm/ Dextrose 50 mls @ 100 mls/hr IVPB Q12H [facility] Last Admin: 02/27/17 11:29 Dose: 100 mls/hr Sodium Chloride (Sodium Chloride 0.9%) 1,000 mls @ 75 mls/hr IV .[id number] [facility] Last Admin: 02/26/17 16:43 Dose: Not Given Vancomycin/Sodium Chloride (Vancocin) 200 mls @ 133 mls/hr IVPB TTS [facility] Stop: 03/04/17 17:01 Nystatin (Nystop Topical Powder) 1 gm TOP Q12H [facility] Last Admin: 02/27/17 05:26 Dose: 1 gm Ondansetron HCl (Zofran Inj) 4 mg IVP Q6 PRN PRN Reason: Nausea/Vomiting Polyethylene Glycol (Miralax) 17 gm PO DAILY [facility] Last Admin: 02/27/17 10:16 Dose: Not Given Pramoxine HCl (Tronolane) 1 TP 5XD [facility] Last Admin: 02/27/17 14:11 Dose: Not Given Saccharomyces Boulardii (Florastor) 250 mg PO Q12H [facility] Last Admin: 02/27/17 05:30 Dose: 250 mg Physical Exam - Constitutional Appears: Non-toxic, No Acute Distress - Head Exam Head Exam: NORMOCEPHALIC - ENT Exam ENT Exam: Mucous Membranes Moist - Respiratory Exam Respiratory Exam: NORMAL BREATHING PATTERN - Cardiovascular Exam Cardiovascular Exam: +S1, +S2 - GI/Abdominal Exam GI & Abdominal Exam: Soft - Extremities Exam Extremities exam: Positive for: pedal edema. Negative for: calf tenderness Additional comments: chronic lymphedema RLE cellulitis, Extremity is warm to touch - Neurological Exam Neurological exam: Alert, Oriented x3 - Psychiatric Exam Psychiatric exam: Normal Mood - Skin Skin Exam: Warm Results - Vital Signs Recent Vital Signs: Last Vital Signs Temp 98.2 F 02/27/17 15:00 Pulse 72 02/27/17 15:00 Resp 20 02/27/17 15:00 BP 108/67 02/27/17 15:00 Pulse Ox 96 02/27/17 15:00 - Labs Result Diagrams: 02/27/17 08:03 02/27/17 08:03 Labs: Laboratory Results - last 24 hr 02/26/17 02/27/17 02/27/17 13:56 07:00 08:03 WBC 15.3 H RBC 3.91 L Hgb 9.0 L Hct 29.0 L MCV 74.2 L MCH 23.1 L MCHC 31.1 L RDW 17.9 H Plt Count 206 MPV 8.1 Neut % (Auto) 83.9 H Lymph % (Auto) 6.5 L [place] % (Auto) 5.9 Eos % (Auto) 3.4 Baso % (Auto) 0.3 Neut # 12.8 H Lymph # 1.0 [place] # 0.9 H Eos # 0.5 Baso # 0.0 Neutrophils % (Manual) 82 H Lymphocytes % (Manual) 8 L Monocytes % (Manual) 7 Eosinophils % (Manual) 3 Platelet Estimate Normal Polychromasia Slight Hypochromasia (manual) Slight Poikilocytosis (manual Slight Anisocytosis (manual) Slight Tear Drop Cells Slight Ovalocytes Slight APTT 32 Sodium 136 Potassium 3.5 L Chloride 91 L Carbon Dioxide 30 Anion Gap 18 BUN 44 H Creatinine 2.9 H Est GFR ( Amer) 28 Est GFR (Non-Af Amer) 23 Random Glucose 95 Calcium 8.8 Total Bilirubin 0.6 AST 19 ALT 15 L Alkaline Phosphatase 101 Total Protein 7.6 Albumin 3.4 L Globulin 4.2 H Albumin/Globulin Ratio 0.8 L Urine Color Yellow Urine Clarity Hazy Urine pH 5.0 Ur Specific [place] 1.015 Urine Protein 2+ H Urine Glucose (UA) Normal Urine Ketones Negative Urine Blood 1+ H Urine Nitrate Negative Urine Bilirubin Negative Urine Urobilinogen Normal Ur Leukocyte Esterase Neg Urine WBC (Auto) 6 H Urine RBC (Auto) 3 Ur Squamous Epith Cells 1 Urine Bacteria Rare Ur L.pneumophila Ag Negative Mycoplasma pneumon IgM Negative Assessment & Plan - Assessment and Plan (Free Text) Assessment: 51M admitted for Sepsis 2/2 RLE cellulitis w/ Left AV shunt on hemodialysis , , Wednesday who was found to have a non working fistula during dialysis -Will keep patient NPO after MN -Will asses laboratory values in the morning -Surgical intervention will be dependent on how patient is doing clinically and laboratory values -Will discuss different therapy options w/ patient -Discussed with Dr. Chiu
[2017-02-28] MEDS: Nystatin 100,000 Units/gm Topical Pow(15 gm) TOP SCH ×2 (05:29→18:10)
[2017-02-28] MEDS: Saccharomyces Boulardi 250 mg Cap PO SCH ×2 (05:30→18:09)
--- NOTE | 2017-02-28 08:02 | CP.PCM.PN ---
<PedritoShandra - Last Filed: 02/28/17 11:30> Subjective - Date & Time of Evaluation Date of Evaluation: 02/28/17 Time of Evaluation: 08:03 - Subjective Subjective: PGY1 Medicine Note for Dr. Tomlinson Patient seen and examined at bedside. Patient complained that yesterday his HD was unable to be done as his fistula was not working as per HD nurse. Patient reports he was spoken to with the surgery residents regarding possible intervention today but patient states he would rather go to his outpatient HD center. Patient does not want surgery. He is also complaining of his breakfast servings being too small and requested extra sausage and eggs. Patient also complained that overnight he had an episode of weeping of his RLE and expressed concern. Patient otherwise had no acute complaints of fever, chills, chest pain , palpitations, sob, cough, abdominal pain, nausea, vomiting, bowel/bladder complaints. He reports he is still has some pain in his RLE if he tries to walk on it but was able to ambulate to bathroom with a cane and assistance from nurse last night. Objective - Vital Signs/Intake and Output Vital Signs (last 24 hours): Temp Pulse Resp BP Pulse Ox 98.1 F 70 20 109/62 95 02/28/17 00:00 02/28/17 00:00 02/28/17 00:00 02/28/17 00:00 02/28/17 00:00 Intake and Output: 02/28/17 02/28/17 06:59 18:59 Intake Total 950 Balance 950 - Medications Medications: Current Medications Acetaminophen (Tylenol 325mg Tab) 650 mg PO Q6 PRN PRN Reason: Fever >100.4 F Last Admin: 02/25/17 00:44 Dose: 650 mg Epoetin Ventura (Procrit) 10,000 unit IV TTS [facility] Famotidine (Pepcid) 20 mg PO DAILY [facility] Last Admin: 02/27/17 10:17 Dose: Not Given Heparin Sodium (Porcine) (Heparin) 5,000 units SC Q8H [facility] Last Admin: 02/28/17 05:29 Dose: 5,000 units Hydromorphone HCl (Dilaudid) 1 mg IVP Q4H PRN PRN Reason: Pain, severe (8-10) Last Admin: 02/28/17 06:41 Dose: 1 mg Cefepime HCl 1 gm/ Dextrose 50 mls @ 100 mls/hr IVPB Q12H [facility] Last Admin: 02/27/17 22:17 Dose: 100 mls/hr Sodium Chloride (Sodium Chloride 0.9%) 1,000 mls @ 75 mls/hr IV .[id number] [facility] Last Admin: 02/27/17 19:30 Dose: Not Given Vancomycin/Sodium Chloride (Vancocin) 200 mls @ 133 mls/hr IVPB TTS [facility] Stop: 03/04/17 17:01 Last Admin: 02/27/17 17:30 Dose: 133 mls/hr Nystatin (Nystop Topical Powder) 1 gm TOP Q12H [facility] Last Admin: 02/28/17 05:29 Dose: 1 gm Ondansetron HCl (Zofran Inj) 4 mg IVP Q6 PRN PRN Reason: Nausea/Vomiting Polyethylene Glycol (Miralax) 17 gm PO DAILY [facility] Last Admin: 02/27/17 10:16 Dose: Not Given Pramoxine HCl (Tronolane) 1 TP 5XD [facility] Last Admin: 02/27/17 20:50 Dose: 1 cre Saccharomyces Boulardii (Florastor) 250 mg PO Q12H [facility] Last Admin: 02/28/17 05:30 Dose: 250 mg - Labs Labs: 02/27/17 08:03 02/27/17 08:03 PT 11.5 SECONDS (9.7-12.2) 02/24/17 21:13 INR 1.0 02/24/17 21:13 APTT 32 SECONDS (21-34) 02/27/17 08:03 - Constitutional Appears: Non-toxic, No Acute Distress - Head Exam Head Exam: NORMAL INSPECTION - Eye Exam Eye Exam: Normal appearance. absent: Conjunctival injection, Scleral icterus - ENT Exam ENT Exam: Mucous Membranes Moist - Neck Exam Neck Exam: Normal Inspection - Respiratory Exam Respiratory Exam: Decreased Breath Sounds, Clear to Ausculation Bilateral, NORMAL BREATHING PATTERN. absent: Accessory Muscle Use, Rales, Rhonchi, Wheezes - Cardiovascular Exam Cardiovascular Exam: REGULAR RHYTHM, RRR, +S1, +S2 - GI/Abdominal Exam GI & Abdominal Exam: Soft, Normal Bowel Sounds. absent: Distended, Firm, Guarding, Rigid, Tenderness - Extremities Exam Extremities Exam: Pedal Edema, Tenderness (RLE). absent: Normal Inspection Additional comments: b/l chronic lymphedema tender to palpation RLE warm RLE RUE av fistula dressing c/d/i - Neurological Exam Neurological Exam: Alert, Awake, Oriented x3 - Psychiatric Exam Psychiatric exam: Normal Affect, Normal Mood - Skin Skin Exam: Dry, Intact, Normal Color, Warm Assessment and Plan - Assessment and Plan (Free Text) Assessment: 51 year old male admitted for sepsis 2/2 RLE cellulitis w/ Left AV shunt on HD with non working fistula found during dialysis Plan: R lower extremity cellulitis, Sepsis Monitor white count Afebrile overnight Procalcitonin 16.64 LA 1.2 Blood Cxr neg x 24H urine culture negative legionella and mycoplasma negative Doppler U/S of RLE neg for DVT U/S of R/L medial thigh to R/o abscess neg for abscess Colace switched to Miralax per pt request Zofran 4mg IVP Q6 PRN n/v Dilaudid 2mg Q4H PRN Floraster 250mg BID Cefepime 1gm Q12H Vancomycin 1gm Q12H and with HD Nystatin topical Wound care Q12H IVF - NS@75 ID consulted- Candelaria ESRD on HD Renal diet NS@75 Nephro consulted- Nakul - HD TTS FU CXR after HD on 02/27 Non working HD fistula Patient on HD //Wed Dr. Chiu consulted- help appreciated Hx asthma FU CXR on 02/27 after HD O2 PRN Hemorrhoids Preparation H ordered PPX SCDs contraindicated due to intolerance/infection Heparin Pepcid Renal/dialysis diet Ambulate with assistance PT/OT LUE precautions 2/2 AV graft/stents Likely d/c 03/01/17. As per ID Dr. Gaona patient to be discharged on Clindamycin for 10 days and Vancomycin to be given during 6 rounds of dialysis. Patient to also be referred to [facility] for weekly wound care for his chronic lymphedema and cellulitis and he requries meticulous foot hygiene. DW attending Shandra Major PGY1 <Rohini Tomlinson V - Last Filed: 02/28/17 22:31> Objective - Vital Signs/Intake and Output Vital Signs (last 24 hours): Temp Pulse Resp BP Pulse Ox 99.0 F 64 20 105/73 93 L 02/28/17 08:00 02/28/17 08:00 02/28/17 08:00 02/28/17 08:00 02/28/17 08:00 Intake and Output: 02/28/17 03/01/17 18:59 06:59 Intake Total 1040 Balance 1040 - Medications Medications: Current Medications Acetaminophen (Tylenol 325mg Tab) 650 mg PO Q6 PRN PRN Reason: Fever >100.4 F Last Admin: 02/25/17 00:44 Dose: 650 mg Epoetin Ventura (Procrit) 10,000 unit IV TTS [facility] Famotidine (Pepcid) 20 mg PO DAILY [facility] Last Admin: 02/28/17 10:50 Dose: 20 mg Heparin Sodium (Porcine) (Heparin) 5,000 units SC Q8H [facility] Last Admin: 02/28/17 21:43 Dose: 5,000 units Hydromorphone HCl (Dilaudid) 1 mg IVP Q4H PRN PRN Reason: Pain, severe (8-10) Last Admin: 02/28/17 16:36 Dose: 1 mg Cefepime HCl 1 gm/ Dextrose 50 mls @ 100 mls/hr IVPB Q12H [facility] Last Admin: 02/28/17 22:10 Dose: 100 mls/hr Sodium Chloride (Sodium Chloride 0.9%) 1,000 mls @ 75 mls/hr IV .[id number] [facility] Last Admin: 02/28/17 21:49 Dose: 75 mls/hr Vancomycin/Sodium Chloride (Vancocin) 200 mls @ 133 mls/hr IVPB TTS [facility] Stop: 03/04/17 17:01 Last Admin: 02/27/17 17:30 Dose: 133 mls/hr Nystatin (Nystop Topical Powder) 1 gm TOP Q12H [facility] Last Admin: 02/28/17 18:10 Dose: 1 gm Ondansetron HCl (Zofran Inj) 4 mg IVP Q6 PRN PRN Reason: Nausea/Vomiting Polyethylene Glycol (Miralax) 17 gm PO DAILY [facility] Last Admin: 02/28/17 10:50 Dose: 17 gm Pramoxine HCl (Tronolane) 1 TP 5XD [facility] Last Admin: 02/28/17 20:50 Dose: 1 cre Saccharomyces Boulardii (Florastor) 250 mg PO Q12H [facility] Last Admin: 02/28/17 18:09 Dose: 250 mg - Labs Labs: 02/28/17 08:17 02/28/17 08:17 PT 11.5 SECONDS (9.7-12.2) 02/24/17 21:13 INR 1.0 02/24/17 21:13 APTT 29 SECONDS (21-34) 02/28/17 08:17 Attending/Attestation - Attestation I have personally seen and examined this patient.: Yes I have fully participated in the care of the patient.: Yes I have reviewed all pertinent clinical information, including history, physical exam and plan: Yes Notes (Text): Patient seen, examined and case discussed with day-time resident. I spoke extensively with the patient today regarding malfunction HD access site. Patient did not have dialysis session yesterday given that it is clotted. In light of this findings, lab work is stable. Leukocytosis has normalized, afebrile, and would have likely gone home today if not for his clotted dialysis access; and that the cellulitis over right lower extremity has improved significantly. Patient reports he does not want in hospitalization intervention because he does not want catheter placement; he reports he prefers his access center with Dr. Laureano who have "de-clotted" his dialysis access in the past, frequently and with much success. Access center is closed today and will not know until 8am tomorrow if they will be able to accommodate him or not. Also, discussed with patient there is no guarantee they will be able to declot at the access center which he is aware but reports "he knows his body" and has missed couple of dialysis sessions in the past given similar circumstances; i've instructed him that part of dialysis is to prevent the build up toxin and electrolytes that can be potentially life-threatening such as arrhythmias. He verbalized understanding and reports "he knows his body" General surgery has spoken with in regards to his access as well, and discussed with Dr. Chiu personally. Discussed with case management, patient is not eligible for home services regarding his right lower extremity cellulitis; but possibility for to setup for [facility] wound care tomorrow. Per infectious disease, recommends for discharged on Clindamycin 300mg PO tid for 10 days and Vancomycin IV to be given during 6 rounds on dialysis days; will need clarification regarding vancomycin dosage.. Patient to also be referred to [facility] for weekly wound care for his chronic lymphedema and cellulitis and he requries meticulous foot hygiene.
[2017-02-28] MEDS: ZINC OXIDE TP SCH ×5 (08:10→20:50)
[2017-02-28] MEDS: PRAMOXINE TP SCH ×5 (08:10→20:50)
[2017-02-28 08:30] LABS: BASO # 0.1 K/uL (0.0-0.2); BASO % 0.7 % (0.0-2.0); EOS # 0.7 K/uL (0.0-0.7); EOS % 6.5 % (0.0-4.0); HEMATOCRIT 30.9 % (35.0-51.0); LYMPH % 9.9 % (20.0-40.0); MEAN CELL VOLUME 74.2 fL (80.0-94.0); MEAN CORPUSCULAR HEMOGLOBIN 23.2 pg (27.0-31.0); MEAN CORPUSCULAR HGB CONC 31.3 g/dL (33.0-37.0); MEAN PLATELET VOLUME 8.2 fL (7.2-11.7); MONO # 0.7 K/uL (0.0-0.8); PLATELET COUNT 253 K/uL (130-400); RED CELL DISTRIBUTION WIDTH 17.5 % (11.5-14.5); WHITE BLOOD COUNT 10.6 K/uL (4.8-10.8)
[2017-02-28 08:46] LABS: POTASSIUM 3.8 mmol/L (3.6-5.2)
[2017-02-28 08:48] LABS: ALB/GLOB RATIO 0.8 (1.0-2.1); BILIRUBIN,TOTAL 0.6 mg/dL (0.2-1.3); TOTAL PROTEIN 8.2 g/dL (6.3-8.3)
[2017-02-28 08:49] LABS: CALCIUM 9.1 mg/dl (8.6-10.4); PHOSPHOROUS 4.5 mg/dL (2.5-4.5)
[2017-02-28 09:11] LABS: EOSINOPHIL 3 % (0-4); NEUTROPHIL 77 % (50-75); TOTAL CELLS COUNTED 100
--- NOTE | 2017-02-28 09:25 | CP.PCM.PN ---
Subjective - Date & Time of Evaluation Date of Evaluation: 02/28/17 Time of Evaluation: 07:50 - Subjective Subjective: Vascular Surgery Pt S&E, NAEO. Pt would like to eat as he wants to have Angio intervention done at his dialysis center on Wednesday. Objective - Vital Signs/Intake and Output Vital Signs (last 24 hours): Temp Pulse Resp BP Pulse Ox 98.1 F 70 20 109/62 95 02/28/17 00:00 02/28/17 00:00 02/28/17 00:00 02/28/17 00:00 02/28/17 00:00 Intake and Output: 02/28/17 02/28/17 06:59 18:59 Intake Total 950 Balance 950 - Medications Medications: Current Medications Acetaminophen (Tylenol 325mg Tab) 650 mg PO Q6 PRN PRN Reason: Fever >100.4 F Last Admin: 02/25/17 00:44 Dose: 650 mg Epoetin Ventura (Procrit) 10,000 unit IV TTS [facility] Famotidine (Pepcid) 20 mg PO DAILY [facility] Last Admin: 02/27/17 10:17 Dose: Not Given Heparin Sodium (Porcine) (Heparin) 5,000 units SC Q8H [facility] Last Admin: 02/28/17 05:29 Dose: 5,000 units Hydromorphone HCl (Dilaudid) 1 mg IVP Q4H PRN PRN Reason: Pain, severe (8-10) Last Admin: 02/28/17 06:41 Dose: 1 mg Cefepime HCl 1 gm/ Dextrose 50 mls @ 100 mls/hr IVPB Q12H [facility] Last Admin: 02/27/17 22:17 Dose: 100 mls/hr Sodium Chloride (Sodium Chloride 0.9%) 1,000 mls @ 75 mls/hr IV .[id number] [facility] Last Admin: 02/27/17 19:30 Dose: Not Given Vancomycin/Sodium Chloride (Vancocin) 200 mls @ 133 mls/hr IVPB TTS [facility] Stop: 03/04/17 17:01 Last Admin: 02/27/17 17:30 Dose: 133 mls/hr Nystatin (Nystop Topical Powder) 1 gm TOP Q12H [facility] Last Admin: 02/28/17 05:29 Dose: 1 gm Ondansetron HCl (Zofran Inj) 4 mg IVP Q6 PRN PRN Reason: Nausea/Vomiting Polyethylene Glycol (Miralax) 17 gm PO DAILY [facility] Last Admin: 02/27/17 10:16 Dose: Not Given Pramoxine HCl (Tronolane) 1 TP 5XD [facility] Last Admin: 02/27/17 20:50 Dose: 1 cre Saccharomyces Boulardii (Florastor) 250 mg PO Q12H [facility] Last Admin: 02/28/17 05:30 Dose: 250 mg - Labs Labs: 02/28/17 08:17 02/28/17 08:17 PT 11.5 SECONDS (9.7-12.2) 02/24/17 21:13 INR 1.0 02/24/17 21:13 APTT 29 SECONDS (21-34) 02/28/17 08:17 - Constitutional Appears: Non-toxic, No Acute Distress - Head Exam Head Exam: ATRAUMATIC, NORMOCEPHALIC - Respiratory Exam Respiratory Exam: NORMAL BREATHING PATTERN. absent: Respiratory Distress - Extremities Exam Additional comments: chronic lymphedema RLE cellulitis, Extremity is warm to touch, improving - Neurological Exam Neurological Exam: Alert, Awake - Skin Skin Exam: Dry, Warm Assessment and Plan - Assessment and Plan (Free Text) Assessment: 51M with Left AV shunt for hemodialysis , , Wednesday. Found to have a non-functioning fistula. Plan: -NPO -Lab values ok this AM -Dr. Chiu to see pt today PGY3
--- NOTE | 2017-02-28 10:24 | RAD ---
HISTORY: Post dialysis evaluation COMPARISON: Comparison is made to the previous study dated 02/24/2017 FINDINGS: LUNGS: Level appearance of reticular opacities at the lower lobes more on the right compared to the previous exam. There is a small opacity seen at the right fissure may represent trace pleural effusion. PLEURA: No evidence otherwise of significant pleural effusion. CARDIOVASCULAR: Normal. OSSEOUS STRUCTURES: No significant abnormalities. VISUALIZED UPPER ABDOMEN: Normal. OTHER FINDINGS: None. IMPRESSION: Mild pulmonary vascular congestion and prominent lung markings seen in the lower lobes.
[2017-02-28] MEDS: POLYETHYLENE GLYCOL 3350 17 GM/Dose PACKET PO SCH (10:50)
--- NOTE | 2017-02-28 16:31 | CP.PCM.PN ---
Subjective - Date & Time of Evaluation Date of Evaluation: 02/28/17 Time of Evaluation: 09:00 - Subjective Subjective: redness and swelling less cultures noted needs access device repair Objective - Vital Signs/Intake and Output Vital Signs (last 24 hours): Temp Pulse Resp BP Pulse Ox 99.0 F 64 20 105/73 93 L 02/28/17 08:00 02/28/17 08:00 02/28/17 08:00 02/28/17 08:00 02/28/17 08:00 Intake and Output: 02/28/17 02/28/17 06:59 18:59 Intake Total 950 Balance 950 - Medications Medications: Current Medications Acetaminophen (Tylenol 325mg Tab) 650 mg PO Q6 PRN PRN Reason: Fever >100.4 F Last Admin: 02/25/17 00:44 Dose: 650 mg Epoetin [place] (Procrit) 10,000 unit IV TTS [facility] Famotidine (Pepcid) 20 mg PO DAILY [facility] Last Admin: 02/28/17 10:50 Dose: 20 mg Heparin Sodium (Porcine) (Heparin) 5,000 units SC Q8H [facility] Last Admin: 02/28/17 15:32 Dose: 5,000 units Hydromorphone HCl (Dilaudid) 1 mg IVP Q4H PRN PRN Reason: Pain, severe (8-10) Last Admin: 02/28/17 11:07 Dose: 1 mg Cefepime HCl 1 gm/ Dextrose 50 mls @ 100 mls/hr IVPB Q12H [facility] Last Admin: 02/28/17 10:51 Dose: 100 mls/hr Sodium Chloride (Sodium Chloride 0.9%) 1,000 mls @ 75 mls/hr IV .[id number] [facility] Last Admin: 02/27/17 19:30 Dose: Not Given Vancomycin/Sodium Chloride (Vancocin) 200 mls @ 133 mls/hr IVPB TTS [facility] Stop: 03/04/17 17:01 Last Admin: 02/27/17 17:30 Dose: 133 mls/hr Nystatin (Nystop Topical Powder) 1 gm TOP Q12H [facility] Last Admin: 02/28/17 05:29 Dose: 1 gm Ondansetron HCl (Zofran Inj) 4 mg IVP Q6 PRN PRN Reason: Nausea/Vomiting Polyethylene Glycol (Miralax) 17 gm PO DAILY [facility] Last Admin: 02/28/17 10:50 Dose: 17 gm Pramoxine HCl (Tronolane) 1 TP 5XD [facility] Last Admin: 02/28/17 14:49 Dose: Not Given Saccharomyces Boulardii (Florastor) 250 mg PO Q12H [facility] Last Admin: 02/28/17 05:30 Dose: 250 mg - Labs Labs: 02/28/17 08:17 02/28/17 08:17 PT 11.5 SECONDS (9.7-12.2) 02/24/17 21:13 INR 1.0 02/24/17 21:13 APTT 29 SECONDS (21-34) 02/28/17 08:17 - Constitutional Appears: Non-toxic, Chronically Ill - Head Exam Head Exam: NORMOCEPHALIC - Eye Exam Eye Exam: PERRL. absent: Scleral icterus - ENT Exam ENT Exam: Mucous Membranes Dry - Neck Exam Neck Exam: absent: Lymphadenopathy - Respiratory Exam Respiratory Exam: Decreased Breath Sounds, Clear to Ausculation Bilateral - Cardiovascular Exam Cardiovascular Exam: REGULAR RHYTHM, +S1, +S2 - GI/Abdominal Exam GI & Abdominal Exam: Distended, Soft. absent: Tenderness Assessment and Plan (1) Acute renal failure syndrome Status: Acute (2) Anemia Status: Acute (3) Asthma Status: Acute (4) Bandemia Status: Acute (5) Cellulitis Status: Acute (6) Cellulitis and abscess of leg Status: Acute (7) Chronic lymphadenitis Status: Acute (8) Diabetes Status: Acute
[2017-02-28] MEDS: Sodium Chloride 0.9% 1,000 ML IV SCH (21:49)
[2017-03-01 02:03] VITALS: PULSE 63
[2017-03-01] MEDS: Saccharomyces Boulardi 250 mg Cap PO SCH ×2 (05:33→17:45)
[2017-03-01] MEDS: Nystatin 100,000 Units/gm Topical Pow(15 gm) TOP SCH ×2 (05:33→17:42)
[2017-03-01 07:18] LABS: BASO % 0.5 % (0.0-2.0); EOS # 0.6 K/uL (0.0-0.7); EOS % 7.1 % (0.0-4.0); HEMATOCRIT 29.6 % (35.0-51.0); LYMPH # 1.1 K/uL (1.0-4.3); LYMPH % 12.3 % (20.0-40.0); MEAN CELL VOLUME 74.9 fL (80.0-94.0); MEAN CORPUSCULAR HEMOGLOBIN 23.4 pg (27.0-31.0); MEAN CORPUSCULAR HGB CONC 31.2 g/dL (33.0-37.0); MEAN PLATELET VOLUME 7.8 fL (7.2-11.7); MONO # 0.7 K/uL (0.0-0.8); MONO % 7.9 % (0.0-10.0); RED CELL DISTRIBUTION WIDTH 18.3 % (11.5-14.5)
[2017-03-01 07:20] LABS: POTASSIUM 3.9 mmol/L (3.6-5.2)
[2017-03-01 07:22] LABS: ALB/GLOB RATIO 0.8 (1.0-2.1); BILIRUBIN,TOTAL 0.4 mg/dL (0.2-1.3); TOTAL PROTEIN 7.6 g/dL (6.3-8.3)
[2017-03-01 07:23] LABS: CALCIUM 8.8 mg/dl (8.6-10.4); PHOSPHOROUS 4.8 mg/dL (2.5-4.5)
--- NOTE | 2017-03-01 08:54 | CP.PCM.PN ---
Subjective - Date & Time of Evaluation Date of Evaluation: 03/01/17 Time of Evaluation: 07:00 - Subjective Subjective: General Surgery Dr. Chiu Pt S&E @bedside. NAEO. no complaints. denies N/V, F/C, paresthesia, weakness in affected arm. NPO. Would prefer to go to his Dialysis center for angio and return to hospital if needed. Objective - Vital Signs/Intake and Output Vital Signs (last 24 hours): Temp Pulse Resp BP Pulse Ox 98.2 F 63 20 100/64 95 03/01/17 00:00 03/01/17 00:00 03/01/17 00:00 03/01/17 00:00 03/01/17 00:00 Intake and Output: 03/01/17 03/01/17 06:59 18:59 Intake Total 850 Output Total 700 Balance 150 - Medications Medications: Current Medications Acetaminophen (Tylenol 325mg Tab) 650 mg PO Q6 PRN PRN Reason: Fever >100.4 F Last Admin: 02/25/17 00:44 Dose: 650 mg Epoetin [place] (Procrit) 10,000 unit IV TTS [facility] Famotidine (Pepcid) 20 mg PO DAILY [facility] Last Admin: 02/28/17 10:50 Dose: 20 mg Heparin Sodium (Porcine) (Heparin) 5,000 units SC Q8H [facility] Last Admin: 03/01/17 05:33 Dose: 5,000 units Hydromorphone HCl (Dilaudid) 1 mg IVP Q4H PRN PRN Reason: Pain, severe (8-10) Last Admin: 03/01/17 02:20 Dose: 1 mg Cefepime HCl 1 gm/ Dextrose 50 mls @ 100 mls/hr IVPB Q12H [facility] Last Admin: 02/28/17 22:10 Dose: 100 mls/hr Sodium Chloride (Sodium Chloride 0.9%) 1,000 mls @ 75 mls/hr IV .[id number] [facility] Last Admin: 02/28/17 21:49 Dose: 75 mls/hr Vancomycin/Sodium Chloride (Vancocin) 200 mls @ 133 mls/hr IVPB TTS [facility] Stop: 03/04/17 17:01 Last Admin: 02/27/17 17:30 Dose: 133 mls/hr Nystatin (Nystop Topical Powder) 1 gm TOP Q12H [facility] Last Admin: 03/01/17 05:33 Dose: 1 gm Ondansetron HCl (Zofran Inj) 4 mg IVP Q6 PRN PRN Reason: Nausea/Vomiting Polyethylene Glycol (Miralax) 17 gm PO DAILY [facility] Last Admin: 02/28/17 10:50 Dose: 17 gm Pramoxine HCl (Tronolane) 1 TP 5XD [facility] Last Admin: 02/28/17 20:50 Dose: 1 cre Saccharomyces Boulardii (Florastor) 250 mg PO Q12H [facility] Last Admin: 03/01/17 05:33 Dose: 250 mg - Labs Labs: 03/01/17 06:46 03/01/17 06:46 PT 11.5 SECONDS (9.7-12.2) 02/24/17 21:13 INR 1.0 02/24/17 21:13 APTT 32 SECONDS (21-34) 03/01/17 06:46 - Constitutional Appears: Non-toxic, No Acute Distress - Head Exam Head Exam: NORMAL INSPECTION - Eye Exam Eye Exam: Normal appearance - ENT Exam ENT Exam: Mucous Membranes Moist - Respiratory Exam Respiratory Exam: NORMAL BREATHING PATTERN. absent: Accessory Muscle Use, Respiratory Distress - Cardiovascular Exam Cardiovascular Exam: REGULAR RHYTHM - GI/Abdominal Exam GI & Abdominal Exam: Soft. absent: Distended (obese), Tenderness - Extremities Exam Additional comments: palpable thrill L AVF - Neurological Exam Neurological Exam: Alert, Awake, Oriented x3 - Psychiatric Exam Psychiatric exam: Normal Affect, Normal Mood - Skin Skin Exam: Dry, Intact, Normal Color, Warm Assessment and Plan - Assessment and Plan (Free Text) Assessment: 51 y/o w/ Left AV shunt for hemodialysis , , Wednesday. Found to have a non-functioning fistula. - NPO - Lab values ok this AM Further recs per Dr. Apple Schulz DO PGY1
[2017-03-01] MEDS: PRAMOXINE TP SCH ×4 (09:16→17:35)
[2017-03-01] MEDS: ZINC OXIDE TP SCH ×4 (09:16→17:35)
--- NOTE | 2017-03-01 10:29 | CP.PCM.DIS ---
<Cindy Albright - Last Filed: 03/01/17 15:33> Provider - Provider Date of Admission: 02/24/17 16:02 Attending physician: Rohini Tomlinson DO Primary care physician: Ivet Alegre Consults: [facility] Time Spent in preparation of Discharge (in minutes): 60 Hospital Course - Lab Results Lab Results: Micro Results 02/26/17 Unknown Leg - Right Gram Stain - Final 02/26/17 Unknown Leg - Right Wound Culture - Final Escherichia Coli 02/26/17 03:45 Urine,Clean Catch Urine Culture - Final No Growth (<1,000 CFU/ML) Most Recent Lab Values WBC 9.0 K/uL (4.8-10.8) 03/01/17 06:46 RBC 3.95 Mil/uL (4.40-5.90) L 03/01/17 06:46 Hgb 9.2 g/dL (12.0-18.0) L 03/01/17 06:46 Hct 29.6 % (35.0-51.0) L 03/01/17 06:46 MCV 74.9 fL (80.0-94.0) L 03/01/17 06:46 MCH 23.4 pg (27.0-31.0) L 03/01/17 06:46 MCHC 31.2 g/dL (33.0-37.0) L 03/01/17 06:46 RDW 18.3 % (11.5-14.5) H 03/01/17 06:46 Plt Count 246 K/uL (130-400) 03/01/17 06:46 MPV 7.8 fL (7.2-11.7) 03/01/17 06:46 Neut % (Auto) 72.2 % (50.0-75.0) 03/01/17 06:46 Lymph % (Auto) 12.3 % (20.0-40.0) L 03/01/17 06:46 [place] % (Auto) 7.9 % (0.0-10.0) 03/01/17 06:46 Eos % (Auto) 7.1 % (0.0-4.0) H 03/01/17 06:46 Baso % (Auto) 0.5 % (0.0-2.0) 03/01/17 06:46 Neut # 6.5 K/uL (1.8-7.0) 03/01/17 06:46 Lymph # 1.1 K/uL (1.0-4.3) 03/01/17 06:46 [place] # 0.7 K/uL (0.0-0.8) 03/01/17 06:46 Eos # 0.6 K/uL (0.0-0.7) 03/01/17 06:46 Baso # 0.0 K/uL (0.0-0.2) 03/01/17 06:46 Neutrophils % (Manual) 77 % (50-75) H 02/28/17 08:17 Band Neutrophils % 2 % (0-2) 02/28/17 08:17 Lymphocytes % (Manual) 11 % (20-40) L 02/28/17 08:17 Monocytes % (Manual) 7 % (0-10) 02/28/17 08:17 Eosinophils % (Manual) 3 % (0-4) 02/28/17 08:17 Platelet Estimate Normal (NORMAL) 02/28/17 08:17 Polychromasia Slight 02/27/17 08:03 Hypochromasia (manual) Slight 02/28/17 08:17 Poikilocytosis (manual Slight 02/27/17 08:03 Anisocytosis (manual) Slight 02/28/17 08:17 Microcytosis (manual) Slight 02/28/17 08:17 Target Cells Slight 02/28/17 08:17 Tear Drop Cells Slight 02/28/17 08:17 Ovalocytes Slight 02/28/17 08:17 PT 11.5 SECONDS (9.7-12.2) 02/24/17 21:13 INR 1.0 02/24/17 21:13 APTT 32 SECONDS (21-34) 03/01/17 06:46 pO2 15 mm/Hg (30-55) L 02/24/17 15:05 VBG pH 7.39 (7.32-7.43) 02/24/17 15:05 VBG pCO2 60 mmHg (40-60) 02/24/17 15:05 VBG HCO3 29.9 mmol/L 02/24/17 15:05 VBG Total CO2 38.1 mmol/L (22-28) H 02/24/17 15:05 VBG O2 Sat (Calc) 15.9 % (40-65) L 02/24/17 15:05 VBG Base Excess 9.1 mmol/L (0.0-2.0) H 02/24/17 15:05 VBG Potassium 3.7 mmol/L (3.6-5.2) 02/24/17 15:05 Sodium 136.0 mmol/l (132-148) 02/24/17 15:05 Chloride 98.0 mmol/L (98-107) 02/24/17 15:05 Glucose 131 mg/dl (75-110) H 02/24/17 15:05 Lactate 3.0 mmol/L (0.7-2.1) H 02/24/17 15:05 Sodium 138 mmol/L (132-148) 03/01/17 06:46 Potassium 3.9 mmol/L (3.6-5.2) 03/01/17 06:46 Chloride 94 mmol/L (98-107) L 03/01/17 06:46 Carbon Dioxide 29 mmol/L (22-30) 03/01/17 06:46 Anion Gap 19 (10-20) 03/01/17 06:46 BUN 56 mg/dL (9-20) H 03/01/17 06:46 Creatinine 2.4 MG/DL (0.8-1.5) H 03/01/17 06:46 Est GFR ( Amer) 35 03/01/17 06:46 Est GFR (Non-Af Amer) 29 03/01/17 06:46 POC Glucose (mg/dL) 137 mg/dL (65-110) H 02/24/17 15:01 Random Glucose 89 mg/dL (75-110) 03/01/17 06:46 Lactic Acid 1.2 mmol/L (0.7-2.1) 02/25/17 13:48 Calcium 8.8 mg/dl (8.6-10.4) 03/01/17 06:46 Phosphorus 4.8 mg/dL (2.5-4.5) H 03/01/17 06:46 Magnesium 2.0 mg/dL (1.6-2.3) 03/01/17 06:46 Total Bilirubin 0.4 mg/dL (0.2-1.3) 03/01/17 06:46 AST 19 U/L (17-59) 03/01/17 06:46 ALT 18 U/L (21-72) L D 03/01/17 06:46 Alkaline Phosphatase 96 U/L (38-126) 03/01/17 06:46 Total Protein 7.6 g/dL (6.3-8.3) 03/01/17 06:46 Albumin 3.4 g/dL (3.5-5.0) L 03/01/17 06:46 Globulin 4.2 gm/dL (2.2-3.9) H 03/01/17 06:46 Albumin/Globulin Ratio 0.8 (1.0-2.1) L 03/01/17 06:46 Procalcitonin 16.64 NG/ML (0.19-0.49) H 02/24/17 18:53 Venous Blood Potassium 3.7 mmol/L (3.6-5.2) 02/24/17 15:05 Urine Color Yellow (YELLOW) 02/27/17 07:00 Urine Clarity Hazy (Clear) 02/27/17 07:00 Urine pH 5.0 (5.0-8.0) 02/27/17 07:00 Ur Specific [place] 1.015 (1.003-1.030) 02/27/17 07:00 Urine Protein 2+ mg/dL (NEGATIVE) H 02/27/17 07:00 Urine Glucose (UA) Normal mg/dL (Normal) 02/27/17 07:00 Urine Ketones Negative mg/dL (NEGATIVE) 02/27/17 07:00 Urine Blood 1+ (NEGATIVE) H 02/27/17 07:00 Urine Nitrate Negative (NEGATIVE) 02/27/17 07:00 Urine Bilirubin Negative (NEGATIVE) 02/27/17 07:00 Urine Urobilinogen Normal mg/dL (0.2-1.0) 02/27/17 07:00 Ur Leukocyte Esterase Neg Alisha/uL (Negative) 02/27/17 07:00 Urine WBC (Auto) 6 /hpf (0-5) H 02/27/17 07:00 Urine RBC (Auto) 3 /hpf (0-3) 02/27/17 07:00 Ur Squamous Epith Cells 1 /hpf (0-5) 02/27/17 07:00 Urine Bacteria Rare (<OCC) 02/27/17 07:00 Ur L.pneumophila Ag Negative (NEGATIVE) 02/26/17 13:56 Mycoplasma pneumon IgM Negative (NEGATIVE) 02/26/17 13:56 - Hospital Course Hospital Course: 51 yo M w/PMH sig for ESRD on HD, chronic lymph edema, morbid obesity and chronic asthma/bronchitis admitted for RLE cellulitis x 1 day. Pt reports he noted R pant leg was wet from leg weaping today prior to HD, during HD pt noted onset of burning/pins & needles, pressure pain in R leg w/radiation to thigh, constant, increased in intensity over time. Denies alleviating/ aggravating/known inciting factors, has prior hx of similar due to small breaks in skin. Admits to dizziness, chills (intermittent, recurrent), numbness/ tingling of RLE, [place]. Denies N/V/F, CP, abdominal pain, constipation, diarrhea , dysuria, urinary frequency, anuria, blurry vision, double vision, headache, cough, congestion, rhinorrhea, palpitations. Pt admitted to hospital for RLE cellulitis- work up positive for sepsis, critical care consulted- pt stable, did not need transfer to ICU. Pt started on IV antibiotics. Pt seen/evaluated by nephrology with recommendations for HD. Over course of hospitalization, pt clinically markedly improved, leukocytosis resolved, pain decreased, erythema and swelling decreased. Pt taken to HD on wednesday- vascular access was not obtainable by nursing- vascular surgery consulted- pt currently refusing intervention by vascular surgery in preference for intervention at outpatient dialysis/surgical center in [place]. Pt stable and ready for discharge home as per Dr. Ac with instructions to take course of antibiotic at home and return to hospital if symptoms recur. Diagnoses: sepsis due to Right lower ext celluitis, ESRD on HD, morbid obesity, chronic lymphedema of B/L LE, asthma, bronchitis - Date & Time of H&P Date of H&P: 02/24/17 Time of H&P: 16:38 Discharge Exam - Head Exam Head Exam: NORMAL INSPECTION, NORMOCEPHALIC - Eye Exam Eye Exam: EOMI, Normal appearance, PERRL Pupil Exam: NORMAL ACCOMODATION, PERRL - ENT Exam ENT Exam: Mucous Membranes Moist, Normal Exam - Neck Exam Neck exam: Full Rom, Normal Inspection - Respiratory Exam Respiratory Exam: Clear to PA & Lateral, NORMAL BREATHING PATTERN, UNREMARKABLE - Cardiovascular Exam Cardiovascular Exam: REGULAR RHYTHM, +S1, +S2 - GI/Abdominal Exam GI & Abdominal Exam: Normal Bowel Sounds, Unremarkable. absent: Tenderness - Extremities Exam Extremities exam: pedal edema Additional comments: Right LE w/no erythema, non tender, swelling markedly decreased, continues to weep from posterior calf skin - Neurological Exam Neurological exam: Alert, CN II-XII Intact, Oriented x3 - Psychiatric Exam Psychiatric exam: Normal Affect, Normal Mood - Skin Skin Exam: Dry, Intact, Normal Color, Warm Discharge Plan - Discharge Medications Prescriptions: Cephalexin [Keflex] 500 mg PO BID #14 capsule - Follow Up Plan Condition: STABLE Disposition: HOME/ ROUTINE Additional Instructions: Patient cleared for discharge as per Dr. Ac. Pt to resume all home meds, given 1 antibiotic for skin infection to take at home - please take as directed. Social work has set you up for home nursing services. If you have a recurrence of symptoms, please return to hospital. <Joe Ac - Last Filed: 03/01/17 17:32> Provider - Provider Date of Admission: 02/24/17 16:02 Attending physician: Rohini Tomlinson, Hospital Course - Lab Results Lab Results: Micro Results 02/26/17 Unknown Leg - Right Gram Stain - Final 02/26/17 Unknown Leg - Right Wound Culture - Final Escherichia Coli Coagulase Neg Staphylococcus 02/26/17 03:45 Urine,Clean Catch Urine Culture - Final No Growth (<1,000 CFU/ML) Most Recent Lab Values WBC 9.0 K/uL (4.8-10.8) 03/01/17 06:46 RBC 3.95 Mil/uL (4.40-5.90) L 03/01/17 06:46 Hgb 9.2 g/dL (12.0-18.0) L 03/01/17 06:46 Hct 29.6 % (35.0-51.0) L 03/01/17 06:46 MCV 74.9 fL (80.0-94.0) L 03/01/17 06:46 MCH 23.4 pg (27.0-31.0) L 03/01/17 06:46 MCHC 31.2 g/dL (33.0-37.0) L 03/01/17 06:46 RDW 18.3 % (11.5-14.5) H 03/01/17 06:46 Plt Count 246 K/uL (130-400) 03/01/17 06:46 MPV 7.8 fL (7.2-11.7) 03/01/17 06:46 Neut % (Auto) 72.2 % (50.0-75.0) 03/01/17 06:46 Lymph % (Auto) 12.3 % (20.0-40.0) L 03/01/17 06:46 [place] % (Auto) 7.9 % (0.0-10.0) 03/01/17 06:46 Eos % (Auto) 7.1 % (0.0-4.0) H 03/01/17 06:46 Baso % (Auto) 0.5 % (0.0-2.0) 03/01/17 06:46 Neut # 6.5 K/uL (1.8-7.0) 03/01/17 06:46 Lymph # 1.1 K/uL (1.0-4.3) 03/01/17 06:46 [place] # 0.7 K/uL (0.0-0.8) 03/01/17 06:46 Eos # 0.6 K/uL (0.0-0.7) 03/01/17 06:46 Baso # 0.0 K/uL (0.0-0.2) 03/01/17 06:46 Neutrophils % (Manual) 77 % (50-75) H 02/28/17 08:17 Band Neutrophils % 2 % (0-2) 02/28/17 08:17 Lymphocytes % (Manual) 11 % (20-40) L 02/28/17 08:17 Monocytes % (Manual) 7 % (0-10) 02/28/17 08:17 Eosinophils % (Manual) 3 % (0-4) 02/28/17 08:17 Platelet Estimate Normal (NORMAL) 02/28/17 08:17 Polychromasia Slight 02/27/17 08:03 Hypochromasia (manual) Slight 02/28/17 08:17 Poikilocytosis (manual Slight 02/27/17 08:03 Anisocytosis (manual) Slight 02/28/17 08:17 Microcytosis (manual) Slight 02/28/17 08:17 Target Cells Slight 02/28/17 08:17 Tear Drop Cells Slight 02/28/17 08:17 Ovalocytes Slight 02/28/17 08:17 PT 11.5 SECONDS (9.7-12.2) 02/24/17 21:13 INR 1.0 02/24/17 21:13 APTT 32 SECONDS (21-34) 03/01/17 06:46 pO2 15 mm/Hg (30-55) L 02/24/17 15:05 VBG pH 7.39 (7.32-7.43) 02/24/17 15:05 VBG pCO2 60 mmHg (40-60) 02/24/17 15:05 VBG HCO3 29.9 mmol/L 02/24/17 15:05 VBG Total CO2 38.1 mmol/L (22-28) H 02/24/17 15:05 VBG O2 Sat (Calc) 15.9 % (40-65) L 02/24/17 15:05 VBG Base Excess 9.1 mmol/L (0.0-2.0) H 02/24/17 15:05 VBG Potassium 3.7 mmol/L (3.6-5.2) 02/24/17 15:05 Sodium 136.0 mmol/l (132-148) 02/24/17 15:05 Chloride 98.0 mmol/L (98-107) 02/24/17 15:05 Glucose 131 mg/dl (75-110) H 02/24/17 15:05 Lactate 3.0 mmol/L (0.7-2.1) H 02/24/17 15:05 Sodium 138 mmol/L (132-148) 03/01/17 06:46 Potassium 3.9 mmol/L (3.6-5.2) 03/01/17 06:46 Chloride 94 mmol/L (98-107) L 03/01/17 06:46 Carbon Dioxide 29 mmol/L (22-30) 03/01/17 06:46 Anion Gap 19 (10-20) 03/01/17 06:46 BUN 56 mg/dL (9-20) H 03/01/17 06:46 Creatinine 2.4 MG/DL (0.8-1.5) H 03/01/17 06:46 Est GFR ( Amer) 35 03/01/17 06:46 Est GFR (Non-Af Amer) 29 03/01/17 06:46 POC Glucose (mg/dL) 137 mg/dL (65-110) H 02/24/17 15:01 Random Glucose 89 mg/dL (75-110) 03/01/17 06:46 Lactic Acid 1.2 mmol/L (0.7-2.1) 02/25/17 13:48 Calcium 8.8 mg/dl (8.6-10.4) 03/01/17 06:46 Phosphorus 4.8 mg/dL (2.5-4.5) H 03/01/17 06:46 Magnesium 2.0 mg/dL (1.6-2.3) 03/01/17 06:46 Total Bilirubin 0.4 mg/dL (0.2-1.3) 03/01/17 06:46 AST 19 U/L (17-59) 03/01/17 06:46 ALT 18 U/L (21-72) L D 03/01/17 06:46 Alkaline Phosphatase 96 U/L (38-126) 03/01/17 06:46 Total Protein 7.6 g/dL (6.3-8.3) 03/01/17 06:46 Albumin 3.4 g/dL (3.5-5.0) L 03/01/17 06:46 Globulin 4.2 gm/dL (2.2-3.9) H 03/01/17 06:46 Albumin/Globulin Ratio 0.8 (1.0-2.1) L 03/01/17 06:46 Procalcitonin 16.64 NG/ML (0.19-0.49) H 02/24/17 18:53 Venous Blood Potassium 3.7 mmol/L (3.6-5.2) 02/24/17 15:05 Urine Color Yellow (YELLOW) 02/27/17 07:00 Urine Clarity Hazy (Clear) 02/27/17 07:00 Urine pH 5.0 (5.0-8.0) 02/27/17 07:00 Ur Specific [place] 1.015 (1.003-1.030) 02/27/17 07:00 Urine Protein 2+ mg/dL (NEGATIVE) H 02/27/17 07:00 Urine Glucose (UA) Normal mg/dL (Normal) 02/27/17 07:00 Urine Ketones Negative mg/dL (NEGATIVE) 02/27/17 07:00 Urine Blood 1+ (NEGATIVE) H 02/27/17 07:00 Urine Nitrate Negative (NEGATIVE) 02/27/17 07:00 Urine Bilirubin Negative (NEGATIVE) 02/27/17 07:00 Urine Urobilinogen Normal mg/dL (0.2-1.0) 02/27/17 07:00 Ur Leukocyte Esterase Neg Alisha/uL (Negative) 02/27/17 07:00 Urine WBC (Auto) 6 /hpf (0-5) H 02/27/17 07:00 Urine RBC (Auto) 3 /hpf (0-3) 02/27/17 07:00 Ur Squamous Epith Cells 1 /hpf (0-5) 02/27/17 07:00 Urine Bacteria Rare (<OCC) 02/27/17 07:00 Ur L.pneumophila Ag Negative (NEGATIVE) 02/26/17 13:56 Mycoplasma pneumon IgM Negative (NEGATIVE) 02/26/17 13:56 Attending/Attestation - Attestation I have personally seen and examined this patient.: Yes I have fully participated in the care of the patient.: Yes I have reviewed all pertinent clinical information, including history, physical exam and plan: Yes Notes (Text): 03/01/17 17:28 Medical Attending: Patient was seen and examined by me. Reviewed previous notes , the patient has had problems with the AVF and states that he is wanting to go to an outpatient center for this to be repaired. His WBC is now normal, he is afebrile - will discharge today. He denied being short of breath, denied chest pain, and reported he felt ok overnight. As mentioned before, patient stated he wants to have repair of his dialysis access at an outpatient center. Will discharge with several more days of PO abx as well. He has been on IV abx for his lower extremity while here. thank you Joe Ac
[2017-03-01] MEDS: POLYETHYLENE GLYCOL 3350 17 GM/Dose PACKET PO SCH (10:44)
--- NOTE | 2017-03-01 10:55 | CP.PCM.PN ---
Subjective - Date & Time of Evaluation Date of Evaluation: 03/01/17 Time of Evaluation: 10:52 - Subjective Subjective: At dialysis now- to try AV fistula which has good thrill and bruit Events 4/ noted- AV fistula was not able to be used- 1 needle without flows Patient would want outpatient IR team to assess access if not usable Right LE better- no more discharges, less swollen No F, C, N, V, CPs. Same lymphedema LEs Objective - Vital Signs/Intake and Output Vital Signs (last 24 hours): Temp Pulse Resp BP Pulse Ox 97.9 F 63 18 104/65 95 03/01/17 08:00 03/01/17 08:00 03/01/17 08:00 03/01/17 08:00 03/01/17 08:00 Intake and Output: 03/01/17 03/01/17 06:59 18:59 Intake Total 850 Output Total 700 Balance 150 - Medications Medications: Current Medications Acetaminophen (Tylenol 325mg Tab) 650 mg PO Q6 PRN PRN Reason: Fever >100.4 F Last Admin: 02/25/17 00:44 Dose: 650 mg Epoetin [place] (Procrit) 10,000 unit IV TTS [facility] Famotidine (Pepcid) 20 mg PO DAILY [facility] Last Admin: 03/01/17 10:44 Dose: Not Given Heparin Sodium (Porcine) (Heparin) 5,000 units SC Q8H [facility] Last Admin: 03/01/17 05:33 Dose: 5,000 units Hydromorphone HCl (Dilaudid) 1 mg IVP Q4H PRN PRN Reason: Pain, severe (8-10) Last Admin: 03/01/17 02:20 Dose: 1 mg Cefepime HCl 1 gm/ Dextrose 50 mls @ 100 mls/hr IVPB Q12H [facility] Last Admin: 03/01/17 10:47 Dose: 100 mls/hr Sodium Chloride (Sodium Chloride 0.9%) 1,000 mls @ 75 mls/hr IV .[id number] [facility] Last Admin: 02/28/17 21:49 Dose: 75 mls/hr Vancomycin/Sodium Chloride (Vancocin) 200 mls @ 133 mls/hr IVPB TTS [facility] Stop: 03/04/17 17:01 Last Admin: 02/27/17 17:30 Dose: 133 mls/hr Nystatin (Nystop Topical Powder) 1 gm TOP Q12H [facility] Last Admin: 03/01/17 05:33 Dose: 1 gm Ondansetron HCl (Zofran Inj) 4 mg IVP Q6 PRN PRN Reason: Nausea/Vomiting Polyethylene Glycol (Miralax) 17 gm PO DAILY [facility] Last Admin: 03/01/17 10:44 Dose: Not Given Pramoxine HCl (Tronolane) 1 TP 5XD [facility] Last Admin: 03/01/17 10:49 Dose: 1 applic Saccharomyces Boulardii (Florastor) 250 mg PO Q12H [facility] Last Admin: 03/01/17 05:33 Dose: 250 mg - Labs Labs: 03/01/17 06:46 03/01/17 06:46 PT 11.5 SECONDS (9.7-12.2) 02/24/17 21:13 INR 1.0 02/24/17 21:13 APTT 32 SECONDS (21-34) 03/01/17 06:46 - Constitutional Appears: No Acute Distress, Chronically Ill - Head Exam Head Exam: ATRAUMATIC, NORMAL INSPECTION - Eye Exam Eye Exam: EOMI, Normal appearance - Neck Exam Neck Exam: Normal Inspection. absent: Tenderness - Respiratory Exam Respiratory Exam: Clear to Ausculation Bilateral, NORMAL BREATHING PATTERN - Cardiovascular Exam Cardiovascular Exam: REGULAR RHYTHM, +S1 - GI/Abdominal Exam GI & Abdominal Exam: Soft. absent: Tenderness - Extremities Exam Extremities Exam: Pedal Edema, Tenderness - Neurological Exam Neurological Exam: Alert, CN II-XII Intact - Skin Skin Exam: Dry, Intact Assessment and Plan (1) Cellulitis Status: Acute (2) ESRD on hemodialysis Status: Acute (3) Hypertension Status: Acute (4) Lymphedema of lower extremity Status: Chronic - Assessment and Plan (Free Text) Plan: Trial of dialysis now- monitor function of fistula Possible discharge otherwise- cellulitis much improved Would eventually switch to TTS dialysis schedule
[2017-03-01 12:03] VITALS: RESP 16; TEMP 97.7
[2017-03-01] MEDS: Sodium Chloride 0.9% 1,000 ML IV SCH (13:04)
[2017-03-01 14:10] VITALS: BP 105/59
[2017-03-10 03:37] VITALS: O2SAT 96
== END 2017-03-01 19:35 | disposition home or self-care (01) | DRG 871 ==
LOC: C.ER 13:48 → C.9E 16:02 → C.3T 19:41
PROVIDERS: ADMIT Hospitalist; ATTEND Hospitalist
PROC: 5A1D60Z (ICD-10-PCS; principal; 2017-02-25)
DX: A41.9 Sepsis, unspecified organism (principal); N18.6 End stage renal disease; E11.22 Type 2 diabetes mellitus with diabetic chronic kidney disease; N17.9 Acute kidney failure, unspecified; I12.0 Hypertensive chronic kidney disease with stage 5 chronic kidney disease or end stage renal disease; E66.01 Morbid (severe) obesity due to excess calories; L03.115 Cellulitis of right lower limb; R65.20 Severe sepsis without septic shock; Z99.2 Dependence on renal dialysis; D64.9 Anemia, unspecified; J44.9 Chronic obstructive pulmonary disease, unspecified; J45.909 Unspecified asthma, uncomplicated; Z87.891 Personal history of nicotine dependence; K21.9 Gastro-esophageal reflux disease without esophagitis; I88.1 Chronic lymphadenitis, except mesenteric; K64.9 Unspecified hemorrhoids

== ENCOUNTER 2017-05-31 02:50 | Inpatient (IN) | payer MEDICARE ==
[2017-05-31 02:51] VITALS: BMI 46.8
--- NOTE | 2017-05-31 04:00 | C.PDOC ---
History Of Present Illness A 51 y/o M with a Hx of cellulitis, c/o tenderness and erythema to the right lower legs for 3 days. Finished a round of antibiotics from Dr. Alegre. Denies fever, chills, nausea, vomiting, weakness, numbness, trauma, or any other complaints. Time Seen by Provider: 05/31/17 03:57 Chief Complaint (Nursing): Lower Extremity Problem/Injury History Per: Patient History/Exam Limitations: no limitations Onset/Duration Of Symptoms: Days Current Symptoms Are (Timing): Still Present Severity: Mild Recent travel outside of the [place]: No Additional History Per: Patient Past Medical History Reviewed: Historical Data, Nursing Documentation, Vital Signs Vital Signs: Last Vital Signs Temp 97.7 F 06/01/17 18:30 Pulse 82 06/01/17 18:30 Resp 16 06/01/17 18:30 BP 112/66 06/01/17 18:30 Pulse Ox 96 06/01/17 23:42 - Medical History PMH: Anemia, Bronchitis, COPD, Diabetes, HTN, Peripheral Edema, End Stage Renal Disease, Chronic Kidney Disease, Chronic Pain - [facility] Procedures DIALYSIS ARTERIOVENOSTOM (05/07/14) DILATION OF LEFT BRACHIAL VEIN, PERCUTANEOUS APPROACH (08/04/16) DRESSING OF WOUND NEC (05/29/14) EXTIRPATION OF MATTER FROM L BRACH ART, PERC APPROACH (08/04/16) EXTIRPATION OF MATTER FROM LEFT BRACHIAL VEIN, PERC APPROACH (08/04/16) HEMODIALYSIS (05/29/14) OTHER FASCIECTOMY (05/29/14) PACKED CELL TRANSFUSION (05/29/14) PERCUTAN NEEDLE BIOPSY OF KIDNEY (01/30/14) PERFORMANCE OF URINARY FILTRATION, MULTIPLE (02/24/17) VENOUS CATHETERIZATION FOR RENAL DIALYSIS (01/18/14) VENOUS CATHETERIZATION NEC (09/22/13) Family History: States: Unknown Family Hx - Social History Hx Tobacco Use: No Hx Alcohol Use: No Hx Substance Use: No - Immunization History Hx Tetanus Toxoid Vaccination: No Hx Influenza Vaccination: No Hx Pneumococcal Vaccination: No Review Of Systems Except As Marked, All Systems Reviewed And Found Negative. Constitutional: Negative for: Fever, Chills, Other (Trauma) Gastrointestinal: Negative for: Nausea, Vomiting Musculoskeletal: Positive for: Leg Pain (Tenderness and erythema to the right lower legs) Neurological: Negative for: Weakness, Numbness Physical Exam - Physical Exam Appears: Non-toxic, No Acute Distress, Other (Morbidly obese) Skin: Warm, Dry Head: Atraumatic, Normacephalic Eye(s): bilateral: Normal Inspection Cardiovascular: Rhythm Regular, No Murmur Respiratory: Normal Breath Sounds, No Accessory Muscle Use, No Rales, No Rhonchi , No Wheezing Extremity: Normal ROM, No Pedal Edema, Capillary Refill (<2secs), Other (With grotesque lymphedema to bilateral lower extremities) Extremity: Bilateral: Normal Color And Temperature Neurological/Psych: Oriented x3, Normal Speech, Normal Cognition, Normal Motor, Normal Sensation, Other (No focal deficit) Gait: Steady ED Course And Treatment - Laboratory Results Result Diagrams: 06/01/17 08:11 06/01/17 08:11 Lab Interpretation: Abnormal O2 Sat by Pulse Oximetry: 96 (RA) Pulse Ox Interpretation: Normal Progress Note: tramadol, rocephin IV due to PCN allergy Reevaluation Time: 05:00 Reassessment Condition: Improved - Physician Consult Information Outcome Of Conversation: d/w Hospitalist @ [facility] [place], [place] to Obs Medical Decision Making Medical Decision Making: Impression: A 51 y/o M with a Hx of cellulitis, c/o tenderness and erythema to the right lower legs for 3 days. recurrent cellulitis R lower leg, typical considering grotesque deformity of chronic lymphedema and obesity Rash with Piperacillin, Rocephin chosen for PCN allergy Disposition Doctor Will See Patient In The: Hospital Counseled Patient/Family Regarding: Studies Performed, Diagnosis - Disposition Disposition: HOSPITALIZED Disposition Time: 05:30 Condition: GOOD - Clinical Impression Clinical Impression: Peripheral edema, Cellulitis - Scribe Statement The provider has reviewed the documentation as recorded by the Scribe Tez lee All medical record entries made by the Itaibgretchen were at my direction and personally dictated by me. I have reviewed the chart and agree that the record accurately reflects my personal performance of the history, physical exam, medical decision making, and the department course for this patient. I have also personally directed, reviewed, and agree with the discharge instructions and disposition.
[2017-05-31 04:53] LABS: ALBUMIN 3.8 g/dL (3.5-5.0)
[2017-05-31 04:55] LABS: MEAN CORPUSCULAR HEMOGLOBIN 24.3 pg (27.0-31.0); MEAN CORPUSCULAR HGB CONC 31.2 g/dL (33.0-37.0); MEAN PLATELET VOLUME 8.9 fL (7.2-11.7); NRBC % 0.1 % (0.0-2.0); PLATELET COUNT 193 K/uL (130-400); RBC 4.62 Mil/uL (4.40-5.90); RED CELL DISTRIBUTION WIDTH 17.7 % (11.5-14.5); WHITE BLOOD COUNT 10.2 K/uL (4.8-10.8)
[2017-05-31 04:56] LABS: ALB/GLOB RATIO 0.9 (1.0-2.1)
[2017-05-31 04:57] LABS: CALCIUM 9.6 mg/dl (8.6-10.4); HEMOGLOBIN 11.2 g/dL (12.0-18.0); MEAN CELL VOLUME 77.9 fL (80.0-94.0)
--- NOTE | 2017-05-31 05:39 | CP.PCM.HP ---
<Shae Og - Last Filed: 05/31/17 07:39> History of Present Illness - History of Present Illness History of Present Illness: Medicine Note CC: Right leg pain HPI: 51 yo male with significant PMHx of ESRD and chronic lymph edema presents to the ED with right leg pain. Patient reports he was hospitalized January 2017 where he developed sepsis secondary to cellulitis. He started to develop right leg pain 2 weeks ago, he saw Dr. Alegre and was prescribed Keflex x 14 days, which the patient completed a course of. The patient started to have right leg pain that returned Wednesday into Wednesday morning. The patient does not take anything for pain. The patient came to the ED because he started to develop a burning sensation in his legs, and immense pain during ambulation. Denied fever , chills, chest pain, SOB, abdominal pain, n/v/d/c/, drainage or weeping from lower extremities, numbness, tingling, or urinary symptoms. PMD: Dr. Alegre Nephro: Dr. Mota PMHx: Chronic lymph edema, ESRD on HD (TTS), morbid obesity, chronic asthma/ bronchitis PSHx: Failed AVF, L UE graft/stents Meds: All: Pet dander, dust SHx: Quit tobacco use 6 months ago (hx of 1/2 ppd x 2 yrs), occasional/special occasion ETOH use, remote hx of cocaine/MJ use FHx: Unremarkable Present on Admission - Present on Admission Any Indicators Present on Admission: No Review of Systems - Constitutional Constitutional: absent: Fatigue, Weakness - EENT Eyes: absent: Blurred Vision, Irritation Ears: absent: Tinnitus, Dizziness Nose/Mouth/Throat: Dry Mouth - Cardiovascular Cardiovascular: absent: Chest Pain, Chest Pain at Rest, Dyspnea, Syncope - Respiratory Respiratory: absent: Cough, Wheezing - Gastrointestinal Gastrointestinal: absent: Abdominal Pain, Nausea, Vomiting - Genitourinary Genitourinary: absent: Dysuria, Hematuria - Musculoskeletal Musculoskeletal: absent: Back Pain, Stiffness, Tingling - Integumentary Integumentary: Change in Pigmentation, Dry Skin, New Lesions, Non-Healing Lesions, Swelling Additional comments: BL LE, R> L - Neurological Neurological: absent: Abnormal Gait, Headaches, Syncope - Psychiatric Psychiatric: absent: Anxiety Past Patient History - Infectious Disease Hx of Infectious Diseases: None - Past Medical History & Family History Past Medical History?: Yes - Past Social History Smoking Status: Former Smoker - CARDIAC Hx Hypertension: Yes Hx Peripheral Edema: Yes - PULMONARY Hx Bronchitis: Yes Hx Chronic Obstructive Pulmonary Disease (COPD): Yes - NEUROLOGICAL Hx Neurological Disorder: No - HEENT Hx HEENT Problems: No - RENAL Hx Chronic Kidney Disease: Yes - ENDOCRINE/METABOLIC Hx Diabetes Mellitus Type 2: Yes - HEMATOLOGICAL/ONCOLOGICAL Hx Anemia: Yes - INTEGUMENTARY Hx Dermatological Problems: Yes Hx Cellulitis: Yes - MUSCULOSKELETAL/RHEUMATOLOGICAL Hx Falls: Yes - GASTROINTESTINAL Hx Gastrointestinal Disorders: Yes Hx Gastroesophageal Reflux: Yes - GENITOURINARY/GYNECOLOGICAL Hx Genitourinary Disorders: No - PSYCHIATRIC Hx Substance Use: No - SURGICAL HISTORY Hx Surgeries: Yes (Left arm AV Fistula) Hx Vascular Surgery: Yes ([facility]) - ANESTHESIA Hx Anesthesia: Yes Hx Anesthesia Reactions: No Hx Malignant Hyperthermia: No Meds Allergies/Adverse Reactions: Allergies Allergy/AdvReac Type Severity Reaction Status Date / Time piperacillin AdvReac ITCHING, Verified 05/31/17 02:53 SHORTNESS OF BREATH PET DANDER Allergy Severe CONGESTION Uncoded 05/31/17 02:53 Physical Exam - Constitutional Appears: No Acute Distress - Head Exam Head Exam: NORMAL INSPECTION - Eye Exam Eye Exam: EOMI, Normal appearance, PERRL Pupil Exam: NORMAL ACCOMODATION - ENT Exam ENT Exam: Mucous Membranes Dry, Normal Exam - Respiratory Exam Respiratory Exam: Clear to Auscultation Bilateral, NORMAL BREATHING PATTERN. absent: Decreased Breath Sounds, Rhonchi, Wheezes - Cardiovascular Exam Cardiovascular Exam: REGULAR RHYTHM, RRR, +S1, +S2 - GI/Abdominal Exam GI & Abdominal Exam: Normal Bowel Sounds, Soft. absent: Distended, Tenderness - Extremities Exam Extremities exam: Positive for: pedal edema, tenderness, pedal pulses present Additional comments: b/l chronic lymphedema tender to palpation RLE warm RLE RUE av fistula dressing c/d/i - Back Exam Back exam: NORMAL INSPECTION. absent: CVA tenderness (L), CVA tenderness (R) - Neurological Exam Neurological exam: Alert, Oriented x3 - Psychiatric Exam Psychiatric exam: Normal Affect, Normal Mood - Skin Skin Exam: Dry, Intact, Normal Color, Warm Results - Vital Signs Recent Vital Signs: Last Vital Signs Temp 97.7 F 05/31/17 02:53 Pulse 100 H 05/31/17 02:53 Resp 18 05/31/17 02:53 BP 104/68 05/31/17 02:53 Pulse Ox 96 05/31/17 05:35 - Labs Result Diagrams: 05/31/17 04:41 05/31/17 04:41 Assessment & Plan - Assessment and Plan (Free Text) Assessment: 51 yo male with significant PMHx of Chronic lymph edema, ESRD on HD (TTS), morbid obesity, chronic asthma/bronchitis presents to the ED with right leg pain. Plan: Right Lower Extremity Cellulitis * Afebrile, no leukocytosis, bandemia and left shift noted on CBC * Tramadol 50mg PO TID PRN for pain * Vancomycin 1gm IVP Q12H * F/U Blood cultures, procalcitonin ESRD on HD * Renal diet * Nephro consulted- Dr. Mota help appreciated- HD TTS Hx Asthma Prophylactic Measures * GI PPX: Pepcid 20mg PO daily * DVT PPX: Heparin SC Q8H, SCDs contraindicated due to intolerance/infection * Renal/dialysis diet * Ambulate with assistance * PT/OT DW Lenka Mc DO, PGY-1 <Lv Dykes P - Last Filed: 06/03/17 06:29> Results - Vital Signs Recent Vital Signs: Last Vital Signs Temp 98.0 F 06/02/17 23:40 Pulse 65 06/02/17 23:40 Resp 20 06/02/17 23:40 BP 118/74 06/02/17 23:40 Pulse Ox 97 06/02/17 23:40 - Labs Result Diagrams: 06/02/17 07:17 06/02/17 07:14 Attending/Attestation - Attestation I have personally seen and examined this patient.: Yes I have fully participated in the care of the patient.: Yes I have reviewed all pertinent clinical information: Yes
[2017-05-31 05:43] LABS: BANDS 7 % (0-2); EOSINOPHIL 3 % (0-4); LYMPHOCYTE 7 % (20-40); NEUTROPHIL 83 % (50-75); TOTAL CELLS COUNTED 100
[2017-05-31 05:44] LABS: ANISOCYTOSIS SLIGHT; MICROCYTOSIS SLIGHT; PLATELET ESTIMATE NORMAL (NORMAL)
[2017-05-31] MEDS ORDERED: cefTRIAXone IV 1 gm in Dextros 50 ML IVPB ONE (05:58)
[2017-05-31] MEDS: Saccharomyces Boulardi 250 mg Cap PO SCH (10:03)
--- NOTE | 2017-05-31 10:28 | RAD ---
HISTORY: Admission COMPARISON: No prior. FINDINGS: LUNGS: Mild to moderate venous congestion. Left hilar prominence. PLEURA: No significant pleural effusion identified, no pneumothorax apparent. CARDIOVASCULAR: Cardiomegaly. Left axillary stent in place. OSSEOUS STRUCTURES: No significant abnormalities. VISUALIZED UPPER ABDOMEN: Normal. OTHER FINDINGS: IMPRESSION: Mild to moderate venous congestion with cardiomegaly.
--- NOTE | 2017-05-31 11:56 | CP.PCM.CON ---
History of Present Illness - History of Present Illness History of Present Illness: HPI: 51 yo male with significant PMHx of ESRD and chronic lymph edema presents to the ED with right leg pain. Patient reports he was hospitalized January 2017 where he developed sepsis secondary to cellulitis. He started to develop right leg pain 2 weeks ago, he saw Dr. Alegre and was prescribed Keflex x 14 days, which the patient completed a course of. The patient started to have right leg pain that returned Wednesday into Wednesday morning. The patient does not take anything for pain. The patient came to the ED because he started to develop a burning sensation in his legs, and immense pain during ambulation. Denied fever , chills, chest pain, SOB, abdominal pain, n/v/d/c/, drainage or weeping from lower extremities, numbness, tingling, or urinary symptoms. PMD: Dr. Alegre Nephro: Dr. Mota PMHx: Chronic lymph edema, ESRD on HD (TTS), morbid obesity, chronic asthma/ bronchitis PSHx: Failed AVF, L UE graft/stents Meds: All: Pet dander, dust SHx: Quit tobacco use 6 months ago (hx of 1/2 ppd x 2 yrs), occasional/special occasion ETOH use, remote hx of cocaine/MJ use FHx: Unremarkable Often with recurrent cellulitis LE related to chronic lymphedema Failed recent outpt antibiotic treatment Recently better compliant with dialysis sessions Review of Systems - Constitutional Constitutional: Weight Gain, Weakness - Cardiovascular Cardiovascular: Dyspnea, Dyspnea on Exertion - Respiratory Respiratory: Cough, Dyspnea on Exertion - Genitourinary Genitourinary: As Per HPI - Musculoskeletal Musculoskeletal: Deformity, Muscle Weakness, Myalgias, Stiffness - Integumentary Integumentary: Bleeding Lesions, Wounds - Neurological Neurological: Weakness - Endocrine Endocrine: Change in Body Appearance, Fatigue Past Patient History - Infectious Disease Hx of Infectious Diseases: None - Past Medical History & Family History Past Medical History?: Yes - Past Social History Smoking Status: Former Smoker Chewing Tobacco Use: No Cigar Use: No Alcohol: Occasional Drugs: Cocaine - CARDIAC Hx Hypertension: Yes Hx Peripheral Edema: Yes - PULMONARY Hx Bronchitis: Yes Hx Chronic Obstructive Pulmonary Disease (COPD): Yes - NEUROLOGICAL Hx Neurological Disorder: No - HEENT Hx HEENT Problems: No - RENAL Hx Chronic Kidney Disease: Yes - ENDOCRINE/METABOLIC Hx Diabetes Mellitus Type 2: Yes - HEMATOLOGICAL/ONCOLOGICAL Hx Anemia: Yes - INTEGUMENTARY Hx Dermatological Problems: Yes Hx Cellulitis: Yes - MUSCULOSKELETAL/RHEUMATOLOGICAL Hx Falls: Yes - GASTROINTESTINAL Hx Gastrointestinal Disorders: Yes Hx Gastroesophageal Reflux: Yes - GENITOURINARY/GYNECOLOGICAL Hx Genitourinary Disorders: No - PSYCHIATRIC Hx Substance Use: No - SURGICAL HISTORY Hx Surgeries: Yes (Left arm AV Fistula) Hx Vascular Surgery: Yes ([facility]) - ANESTHESIA Hx Anesthesia: Yes Hx Anesthesia Reactions: No Hx Malignant Hyperthermia: No Meds Allergies/Adverse Reactions: Allergies Allergy/AdvReac Type Severity Reaction Status Date / Time piperacillin AdvReac ITCHING, Verified 05/31/17 02:53 SHORTNESS OF BREATH PET DANDER Allergy Severe CONGESTION Uncoded 05/31/17 02:53 - Medications Medications: Current Medications Famotidine (Pepcid) 20 mg PO DAILY [facility] Last Admin: 05/31/17 10:02 Dose: 20 mg Heparin Sodium (Porcine) (Heparin) 5,000 units SC Q8 [facility] Ondansetron HCl (Zofran Inj) 4 mg IVP Q6H PRN PRN Reason: Nausea/Vomiting Saccharomyces Boulardii (Florastor) 250 mg PO DAILY [facility] Last Admin: 05/31/17 10:03 Dose: 250 mg Tramadol HCl (Ultram) 50 mg PO TID PRN PRN Reason: Pain, moderate (4-7) Physical Exam - Constitutional Appears: Non-toxic, Chronically Ill - Head Exam Head Exam: ATRAUMATIC, NORMAL INSPECTION - Eye Exam Eye Exam: EOMI, Normal appearance - Neck Exam Neck exam: Positive for: Normal Inspection. Negative for: Tenderness - Respiratory Exam Respiratory Exam: Rales, NORMAL BREATHING PATTERN - Cardiovascular Exam Cardiovascular Exam: REGULAR RHYTHM, +S1 - GI/Abdominal Exam GI & Abdominal Exam: Distended, Soft. absent: Tenderness - Extremities Exam Extremities exam: Positive for: pedal edema, tenderness - Neurological Exam Neurological exam: Alert, CN II-XII Intact - Skin Skin Exam: Erythema, Warm Results - Vital Signs Recent Vital Signs: Last Vital Signs Temp 98 F 05/31/17 06:47 Pulse 94 H 05/31/17 06:47 Resp 16 05/31/17 06:47 BP 107/66 05/31/17 06:47 Pulse Ox 96 05/31/17 07:08 - Labs Result Diagrams: 05/31/17 04:41 05/31/17 04:41 Assessment & Plan (1) ESRD (end stage renal disease) Status: Acute (2) Hypertensive chronic kidney disease with stage 5 chronic kidney disease or end stage renal disease Status: Acute (3) Cellulitis Status: Acute (4) Lymphedema of lower extremity Status: Chronic - Assessment and Plan (Free Text) Plan: IV ABs Dialysis TTS- refuses extra HD today Diet evaluation
--- NOTE | 2017-05-31 12:31 | CP.PCM.PN ---
<Ruddy Hector - Last Filed: 05/31/17 12:48> Subjective - Date & Time of Evaluation Date of Evaluation: 05/31/17 Time of Evaluation: 11:00 - Subjective Subjective: Patient was examined at bedside. Patient is morbidly obese with chronic lymphedema in lower extremities b/l. Patient was not in acute distress. Patient was complaining of pain in his right inner thigh, his right inner leg and right ankle. Patient stated that he felt a little loopy attributed to the pain med. He denied fever. Patient also denied chest pain, shortness of breath, abdominal pain, diarrhea, dysuria. Objective - Vital Signs/Intake and Output Vital Signs (last 24 hours): Temp Pulse Resp BP Pulse Ox 98 F 94 H 16 107/66 96 05/31/17 06:47 05/31/17 06:47 05/31/17 06:47 05/31/17 06:47 05/31/17 07:08 - Medications Medications: Current Medications Famotidine (Pepcid) 20 mg PO DAILY [facility] Last Admin: 05/31/17 10:02 Dose: 20 mg Heparin Sodium (Porcine) (Heparin) 5,000 units SC Q8 [facility] Ondansetron HCl (Zofran Inj) 4 mg IVP Q6H PRN PRN Reason: Nausea/Vomiting Saccharomyces Boulardii (Florastor) 250 mg PO DAILY [facility] Last Admin: 05/31/17 10:03 Dose: 250 mg Tramadol HCl (Ultram) 50 mg PO TID PRN PRN Reason: Pain, moderate (4-7) - Constitutional Appears: Well, Non-toxic, No Acute Distress - Head Exam Head Exam: NORMAL INSPECTION - Eye Exam Eye Exam: EOMI, Normal appearance, PERRL - ENT Exam ENT Exam: Mucous Membranes Moist - Neck Exam Neck Exam: Full ROM, Normal Inspection - Respiratory Exam Respiratory Exam: Clear to Ausculation Bilateral, NORMAL BREATHING PATTERN. absent: Rales, Rhonchi, Wheezes - Cardiovascular Exam Cardiovascular Exam: REGULAR RHYTHM, +S1, +S2 - GI/Abdominal Exam GI & Abdominal Exam: Soft, Normal Bowel Sounds - Rectal Exam Rectal Exam: Deferred - Extremities Exam Extremities Exam: Pedal Edema, Tenderness Additional comments: significant lymphedema b/l - Neurological Exam Neurological Exam: Alert, Awake, Oriented x3 - Psychiatric Exam Psychiatric exam: Normal Affect, Normal Mood - Skin Skin Exam: Dry, Intact, Warm. absent: Erythema Additional comments: right leg slightly warmer than left leg Assessment and Plan - Assessment and Plan (Free Text) Assessment: 51 yo male with significant PMHx of Chronic lymph edema, ESRD on HD (TTS), morbid obesity, chronic asthma/bronchitis presents to the ED with right leg pain. Plan: Right Lower Extremity Cellulitis * Afebrile, no leukocytosis, bandemia and left shift noted on CBC * Vancomycin 1gm IVP Q12H given in ED * discontinued as pt is ESRD * F/U Blood cultures, procalcitonin * ID consult, Dr Boucher, recs appreciated * Duplex scan LE b/l ordered, f/u * Tramadol 50mg PO q8 PRN for moderate pain * Dilaudid 1mg IV q4 PRN for severe pain ESRD on HD * BUN 44, Cr 2.9 * Renal diet * Liberalized diet to regular diet as pt was non-compliant with renal diet * Nephro consulted- Dr. Mota help appreciated - HD TTS * 05/29: Dr Mota recs IV abx; offered pt extra HD today, pt refused due to discomfort Hx Asthma * controlled, no meds needed currently Prophylactic Measures * GI PPX: Pepcid 20mg PO daily * DVT PPX: Heparin SC Q8H, SCDs contraindicated due to intolerance/infection * Renal/dialysis diet * Ambulate with assistance * PT/OT <Yuriy Jiang - Last Filed: 05/31/17 18:08> Objective - Vital Signs/Intake and Output Vital Signs (last 24 hours): Temp Pulse Resp BP Pulse Ox 98.5 F 89 20 103/67 97 05/31/17 15:49 05/31/17 15:49 05/31/17 15:49 05/31/17 15:49 05/31/17 15:49 - Medications Medications: Current Medications Famotidine (Pepcid) 20 mg PO DAILY [facility] Last Admin: 05/31/17 10:02 Dose: 20 mg Heparin Sodium (Porcine) (Heparin) 5,000 units SC Q8 [facility] Last Admin: 05/31/17 13:24 Dose: 5,000 units Hydromorphone HCl (Dilaudid) 1 mg IVP Q4H PRN PRN Reason: Pain, severe (8-10) Last Admin: 05/31/17 17:50 Dose: 1 mg Clindamycin Phosphate (Cleocin) 600 mg in 50 mls @ 100 mls/hr IVPB Q8H [facility] Last Admin: 05/31/17 17:51 Dose: 100 mls/hr Ondansetron HCl (Zofran Inj) 4 mg IVP Q6H PRN PRN Reason: Nausea/Vomiting Saccharomyces Boulardii (Florastor) 250 mg PO DAILY [facility] Last Admin: 05/31/17 10:03 Dose: 250 mg Tramadol HCl (Ultram) 50 mg PO TID PRN PRN Reason: Pain, moderate (4-7) Attending/Attestation - Attestation I have personally seen and examined this patient.: Yes I have fully participated in the care of the patient.: Yes I have reviewed all pertinent clinical information, including history, physical exam and plan: Yes Notes (Text): 05/31/17 18:07 Patient was seen and examined at bedside today Patient awake and alert and complains of pain in the right leg We will start the patient on IV antibiotics for cellulitis. Follow-up blood cultures. We will request for ID consultation Patient will have dialysis on his regular days Discussed with nephrology Pain medication as needed. I discussed the plan of care with the resident and agree with the history and physical and assessment/plan.
[2017-05-31] MEDS: HYDROmorphone 1 mg/ml ISec IVP PRN ×3 (13:23→21:52)
--- NOTE | 2017-05-31 15:00 | CP.PCM.CON ---
History of Present Illness - History of Present Illness History of Present Illness: This is a 51yr old male with morbid obesity with multiple folds in thifhs and legs with severe lymphedema says he started to have right leg pain yesterday he noticed some skin break in the folds in the grin and right thigh.He gets dialysis on ,,sat He denies any fever but developed severe pin in the leg yesterday He has had similar episodes of infection in the past. Patient reports he was hospitalized January 2017 where he developed sepsis secondary to cellulitis. He started to develop right leg pain 2 weeks ago, he saw Dr. Alegre and was prescribed Keflex x 14 days, which the patient completed a course of. The patient started to have right leg pain that returned Wednesday into Wednesday morning. The patient does not take anything for pain. The patient came to the ED because he started to develop a burning sensation in his legs, and immense pain during ambulation. Denied fever, chills, chest pain, SOB, abdominal pain, n/v/d/c/, drainage or weeping from lower extremities, numbness, tingling, or urinary symptoms. PMD: Dr. Alegre Nephro: Dr. Mota PMHx: Chronic lymph edema, ESRD on HD (TTS), morbid obesity, chronic asthma/ bronchitis PSHx: Failed AVF, L UE graft/stents allergic : to zosyn,pet and dander social history : ex smoker stopped 6 month ago,past drug abuse,denies alcohol abuse Review of Systems - Review of Systems Systems not reviewed;Unavailable: Acuity of Condition, Unstable Vital Signs, Respiratory Distress, Dementia, Altered Mental Status, Intoxicated, Uncooperative, Psychotic, Intubated, Language Barrier, Other - Constitutional Constitutional: absent: As Per HPI, Anorexia, Chills, Daytime Sleepiness, Excessive Sweating, Fatigue, Fever, Frequent Falls, Headache, Increased Appetite , Lethargy, Malaise, Night Sweats, Snoring, Sleep Apnea, Weight Gain, Weight Loss, Weakness, Other - EENT Eyes: absent: As Per HPI, Blind Spots, Blurred Vision, Change in Vision, Decreased Night Vision, Diplopia, Discharge, Dry Eye, Exophthalmos, Floaters, Irritation, Itchy Eyes, Loss of Peripheral Vision, Pain, Photophobia, Requires Corrective Lenses, Sees Flashes, Spots in Vision, Tunnel Vision, Other Visual Disturbances, Loss of Vision, Other Ears: absent: As Per HPI, Decreased Hearing, Ear Discharge, Ear Pain, Tinnitus, Abnormal Hearing, Disequilibrium, Dizziness, Other Nose/Mouth/Throat: absent: As Per HPI, Epistaxis, Nasal Congestion, Nasal Discharge, Nasal Obstruction, Nasal Trauma, Nose Pain, Post Nasal Drip, Sinus Pain, Sinus Pressure, Bleeding Gums, Change in Voice, Dental Pain, Dry Mouth, Dysphagia, Halitosis, Hoarsness, Lip Swelling, Mouth Lesions, Mouth Pain, Odynophagia, Sore Throat, Throat Swelling, Tongue Swelling, Facial Pain, Neck Pain, Neck Mass, Other - Respiratory Respiratory: absent: As Per HPI, Cough, Dyspnea, Hemoptysis, Dyspnea on Exertion , Wheezing, Snoring, Stridor, Pain on Inspiration, Chest Congestion, Excessive Mucous Production, Change in Mucous Color, Pain with Coughing, Other - Gastrointestinal Gastrointestinal: absent: As Per HPI, Abdominal Pain, Belching, Bloating, Change in Bowel Habits, Change in Stool Character, Coffee Ground Emesis, Constipation, Cramping, Diarrhea, Dyspepsia, Dysphagia, Early Satiety, Excessive Flatus, Fecal Incontinence, Heartburn, Hematemesis, Hematochezia, Loose Stools, Melena, Nausea, Odynophagia, Temesmus, Vomiting, Other - Genitourinary Genitourinary: absent: As Per HPI, Change in Urinary Stream, Difficulty Urinating, Dysuria, Flank Pain, Hematuria, Pyuria, Nocturia, Urinary Incontinence, Urinary Frequency, Urinary Hesitance, Urinary Urgency, Voiding Freq/Small Amts, Freq UTI, Hx Renal/Bladder Calculi, Hx /Renal Surgery, Bladder Distension, Other - Musculoskeletal Additional comments: right leg pain ,skin break,increased warmth and pain,no fever Past Patient History - Infectious Disease Hx of Infectious Diseases: None - Past Medical History & Family History Past Medical History?: Yes - Past Social History Smoking Status: Former Smoker Chewing Tobacco Use: No Cigar Use: No Alcohol: Occasional Drugs: Cocaine - CARDIAC Hx Hypertension: Yes Hx Peripheral Edema: Yes - PULMONARY Hx Bronchitis: Yes Hx Chronic Obstructive Pulmonary Disease (COPD): Yes - NEUROLOGICAL Hx Neurological Disorder: No - HEENT Hx HEENT Problems: No - RENAL Hx Chronic Kidney Disease: Yes - ENDOCRINE/METABOLIC Hx Diabetes Mellitus Type 2: Yes - HEMATOLOGICAL/ONCOLOGICAL Hx Anemia: Yes - INTEGUMENTARY Hx Dermatological Problems: Yes Hx Cellulitis: Yes - MUSCULOSKELETAL/RHEUMATOLOGICAL Hx Falls: Yes - GASTROINTESTINAL Hx Gastrointestinal Disorders: Yes Hx Gastroesophageal Reflux: Yes - GENITOURINARY/GYNECOLOGICAL Hx Genitourinary Disorders: No - PSYCHIATRIC Hx Substance Use: No - SURGICAL HISTORY Hx Surgeries: Yes (Left arm AV Fistula) Hx Vascular Surgery: Yes ([facility]) - ANESTHESIA Hx Anesthesia: Yes Hx Anesthesia Reactions: No Hx Malignant Hyperthermia: No Meds Allergies/Adverse Reactions: Allergies Allergy/AdvReac Type Severity Reaction Status Date / Time piperacillin AdvReac ITCHING, Verified 05/31/17 02:53 SHORTNESS OF BREATH PET DANDER Allergy Severe CONGESTION Uncoded 05/31/17 02:53 - Medications Medications: Current Medications Famotidine (Pepcid) 20 mg PO DAILY [facility] Last Admin: 05/31/17 10:02 Dose: 20 mg Heparin Sodium (Porcine) (Heparin) 5,000 units SC Q8 [facility] Last Admin: 05/31/17 13:24 Dose: 5,000 units Hydromorphone HCl (Dilaudid) 1 mg IVP Q4H PRN PRN Reason: Pain, severe (8-10) Last Admin: 05/31/17 13:23 Dose: 1 mg Ondansetron HCl (Zofran Inj) 4 mg IVP Q6H PRN PRN Reason: Nausea/Vomiting Saccharomyces Boulardii (Florastor) 250 mg PO DAILY [facility] Last Admin: 05/31/17 10:03 Dose: 250 mg Tramadol HCl (Ultram) 50 mg PO TID PRN PRN Reason: Pain, moderate (4-7) Physical Exam - Constitutional Appears: No Acute Distress - Head Exam Head Exam: ATRAUMATIC, NORMOCEPHALIC Additional comments: obesity present,alert oriented times 3 - Eye Exam Eye Exam: Normal appearance, PERRL Additional comments: uses glasses - ENT Exam ENT Exam: Mucous Membranes Moist - Neck Exam Neck exam: Positive for: Normal Inspection. Negative for: Full Rom, Lymphadenopathy, Meningismus, Tenderness, Thyromegaly - Respiratory Exam Respiratory Exam: Decreased Breath Sounds, Clear to Auscultation Bilateral. absent: Accessory Muscle Use, Chest Wall Tenderness, Prolonged Expiratory Phase , Rales, Rhonchi, Wheezes, Respiratory Distress, Stridor, NORMAL BREATHING PATTERN - Cardiovascular Exam Cardiovascular Exam: REGULAR RHYTHM. absent: Bradycardia, Tachycardia, Clicks, Diastolic murmur, Gallop, Irregular Rhythm, JVD, RRR, Rubs, +S1, +S2, +S4, Systolic Murmur - GI/Abdominal Exam GI & Abdominal Exam: Normal Bowel Sounds. absent: Bruit, Diminished Bowel Sounds, Distended, Firm, Guarding, Hernia, Hyperactive Bowel Sounds, Hypoactive Bowel Sounds, Mass, Organomegaly, Pulsatile Mass, Rebound, Rigid, Soft, Tenderness Additional comments: bilateral multiple folds of fat and leg lymphedema and in upper thigh and groin increased warmth and some skin break in the folds noted - Extremities Exam Additional comments: patient has so much lymphedema and fold on thighs legs and foot pulses not palpable but patient has no discoloration both feet - Skin Skin Exam: Dry Results - Vital Signs Recent Vital Signs: Last Vital Signs Temp 98 F 05/31/17 06:47 Pulse 94 H 05/31/17 06:47 Resp 16 05/31/17 06:47 BP 107/66 05/31/17 06:47 Pulse Ox 96 05/31/17 07:08 - Labs Result Diagrams: 05/31/17 04:41 05/31/17 04:41 Labs: Laboratory Results - last 24 hr 05/31/17 11:53 Procalcitonin 29.33 H Assessment & Plan (1) Cellulitis Assessment and Plan: patient has signs of cellulitis in the setting of the lymphedema and will treat with antibiotics Status: Acute (2) ESRD (end stage renal disease) Assessment and Plan: patient is dialysis patient Status: Acute (3) Lymphedema Status: Chronic (4) Anemia Status: Chronic Onset Date: 05/29/14 - Assessment and Plan (Free Text) Assessment: patient has tolerated clindamycin and azactam in the past will place him on same and follow with the resident
[2017-05-31] MEDS: Clindamycin 600mg/50ml D5W 600 MG/50 ML VIAL IVPB SCH (17:51)
[2017-05-31] MEDS ORDERED: Aztreonam 1 GM in Sodium Chloride 0.9% 100 ML IVPB SCH ×2 (19:30→21:00)
[2017-06-01] MEDS: Clindamycin 600mg/50ml D5W 600 MG/50 ML VIAL IVPB SCH ×3 (00:18→19:19)
[2017-06-01] MEDS: HYDROmorphone 1 mg/ml ISec IVP PRN ×5 (02:07→19:16)
[2017-06-01 08:24] LABS: BASO # 0.1 K/uL (0.0-0.2); BASO % 0.2 % (0.0-2.0); EOS # 0.2 K/uL (0.0-0.7); EOS % 0.6 % (0.0-4.0); HEMOGLOBIN 10.5 g/dL (12.0-18.0); LYMPH # 1.1 K/uL (1.0-4.3); LYMPH % 4.1 % (20.0-40.0); MEAN CELL VOLUME 77.6 fL (80.0-94.0); MEAN CORPUSCULAR HEMOGLOBIN 24.2 pg (27.0-31.0); MEAN CORPUSCULAR HGB CONC 31.2 g/dL (33.0-37.0); MEAN PLATELET VOLUME 9.5 fL (7.2-11.7); MONO # 1.1 K/uL (0.0-0.8); MONO % 4.2 % (0.0-10.0); NEUT # 24.8 K/uL (1.8-7.0); NEUT % 90.9 % (50.0-75.0); PLATELET COUNT 204 K/uL (130-400); RBC 4.32 Mil/uL (4.40-5.90); RED CELL DISTRIBUTION WIDTH 17.6 % (11.5-14.5)
--- NOTE | 2017-06-01 08:25 | CP.PCM.PN ---
Subjective - Date & Time of Evaluation Date of Evaluation: 06/01/17 Time of Evaluation: 08:23 - Subjective Subjective: afebrile c/o upset stomach, constipation on iv aztreonam and clindamycin Objective - Vital Signs/Intake and Output Vital Signs (last 24 hours): Temp Pulse Resp BP Pulse Ox 97.6 F 80 18 115/76 92 L 06/01/17 07:00 06/01/17 07:00 06/01/17 07:00 06/01/17 07:00 06/01/17 07:00 Intake and Output: 06/01/17 06/01/17 06:59 18:59 Output Total 100 Balance -100 - Medications Medications: Current Medications Famotidine (Pepcid) 20 mg PO DAILY [facility] Last Admin: 05/31/17 10:02 Dose: 20 mg Heparin Sodium (Porcine) (Heparin) 5,000 units SC Q8 [facility] Last Admin: 06/01/17 06:02 Dose: 5,000 units Hydromorphone HCl (Dilaudid) 1 mg IVP Q4H PRN PRN Reason: Pain, severe (8-10) Last Admin: 06/01/17 06:28 Dose: 1 mg Clindamycin Phosphate (Cleocin) 600 mg in 50 mls @ 100 mls/hr IVPB Q8H [facility] Last Admin: 06/01/17 00:18 Dose: 100 mls/hr Aztreonam 1 gm/ Sodium (Chloride) 100 mls @ 200 mls/hr IVPB Q24H [facility] Last Admin: 05/31/17 20:56 Dose: 200 mls/hr Ondansetron HCl (Zofran Inj) 4 mg IVP Q6H PRN PRN Reason: Nausea/Vomiting Psyllium Hydrophilic Mucilloid (Hydrocil Instant) 1 pkt PO DAILY [facility] Saccharomyces Boulardii (Florastor) 250 mg PO DAILY [facility] Last Admin: 05/31/17 10:03 Dose: 250 mg Tramadol HCl (Ultram) 50 mg PO TID PRN PRN Reason: Pain, moderate (4-7) - Constitutional Appears: Non-toxic, Chronically Ill, Other (obese) - Head Exam Head Exam: NORMAL INSPECTION - Eye Exam Eye Exam: Normal appearance - ENT Exam ENT Exam: Mucous Membranes Moist, Normal Exam - Neck Exam Neck Exam: Normal Inspection - Respiratory Exam Respiratory Exam: Decreased Breath Sounds, NORMAL BREATHING PATTERN - Cardiovascular Exam Cardiovascular Exam: RRR - GI/Abdominal Exam GI & Abdominal Exam: Distended, Soft - Extremities Exam Additional comments: chronic stasis edema erythema Assessment and Plan (1) Cellulitis Status: Acute (2) ESRD (end stage renal disease) Status: Acute (3) Hypertensive chronic kidney disease with stage 5 chronic kidney disease or end stage renal disease Status: Acute (4) Peripheral edema Status: Acute (5) Lymphedema Status: Chronic - Assessment and Plan (Free Text) Assessment: hd tts antibiotics per id add laxative, pt on dilaudid
[2017-06-01 08:27] LABS: WHITE BLOOD COUNT 27.3 K/uL (4.8-10.8)
[2017-06-01] MEDS: Saccharomyces Boulardi 250 mg Cap PO SCH (09:55)
[2017-06-01 10:04] LABS: ALBUMIN 3.7 g/dL (3.5-5.0)
[2017-06-01 10:07] LABS: ALB/GLOB RATIO 0.8 (1.0-2.1); CALCIUM 9.1 mg/dl (8.6-10.4)
[2017-06-01] MEDS: Psyllium Packet PO SCH (10:20)
[2017-06-01 11:10] LABS: ANISOCYTOSIS SLIGHT; BANDS 14 % (0-2); HYPOCHROMIC SLIGHT; LYMPHOCYTE 6 % (20-40); MONOCYTE 5 % (0-10); NEUTROPHIL 75 % (50-75); PLATELET ESTIMATE NORMAL (NORMAL); POIKILOCYTOSIS SLIGHT; TOTAL CELLS COUNTED 100
[2017-06-01] MEDS ORDERED: Clindamycin 600mg/50ml D5W 600 MG/50 ML VIAL IVPB SCH (11:30)
[2017-06-01] MEDS: Aztreonam 2 GM in Sodium Chloride 0.9% 100 ML IVPB SCH (13:09)
--- NOTE | 2017-06-01 18:16 | CP.PCM.PN ---
<Ruddy Hector - Last Filed: 06/01/17 20:08> Subjective - Date & Time of Evaluation Date of Evaluation: 06/01/17 Time of Evaluation: 11:00 - Subjective Subjective: Patient was seen and examined at bedside. Patient was not in acute distress. Patient stated his leg pain has improved since yesterday and is now only present in the right groin area. Patient denies fever, chills, diaphoresis, vomiting, constipation, chest pain, shortness of breath. Objective - Vital Signs/Intake and Output Vital Signs (last 24 hours): Temp Pulse Resp BP Pulse Ox 98.2 F 84 18 101/64 95 06/01/17 15:00 06/01/17 15:00 06/01/17 15:00 06/01/17 18:00 06/01/17 15:00 Intake and Output: 06/01/17 06/01/17 06:59 18:59 Intake Total 500 Output Total 100 400 Balance -100 100 - Medications Medications: Current Medications Famotidine (Pepcid) 20 mg PO DAILY [facility] Last Admin: 06/01/17 09:55 Dose: 20 mg Heparin Sodium (Porcine) (Heparin) 5,000 units SC Q8 [facility] Last Admin: 06/01/17 13:13 Dose: 5,000 units Hydromorphone HCl (Dilaudid) 1 mg IVP Q4H PRN PRN Reason: Pain, severe (8-10) Last Admin: 06/01/17 14:18 Dose: 1 mg Vancomycin/Sodium Chloride (Vancocin) 1 gm in 200 mls @ 133 mls/hr IVPB TTS [facility] Stop: 06/08/17 15:01 Aztreonam 2 gm/ Sodium (Chloride) 100 mls @ 200 mls/hr IVPB Q24H [facility] Last Admin: 06/01/17 13:09 Dose: 200 mls/hr Clindamycin Phosphate (Cleocin) 600 mg in 50 mls @ 102 mls/hr IVPB Q8H [facility] Ondansetron HCl (Zofran Inj) 4 mg IVP Q6H PRN PRN Reason: Nausea/Vomiting Psyllium Hydrophilic Mucilloid (Hydrocil Instant) 1 pkt PO DAILY [facility] Last Admin: 06/01/17 10:20 Dose: 1 pkt Saccharomyces Boulardii (Florastor) 250 mg PO DAILY [facility] Last Admin: 06/01/17 09:55 Dose: 250 mg Tramadol HCl (Ultram) 50 mg PO TID PRN PRN Reason: Pain, moderate (4-7) - Labs Labs: 06/01/17 08:11 06/01/17 08:11 - Constitutional Appears: Well - Head Exam Head Exam: ATRAUMATIC, NORMAL INSPECTION, NORMOCEPHALIC - Eye Exam Eye Exam: EOMI, Normal appearance, PERRL - ENT Exam ENT Exam: Mucous Membranes Moist, Normal Exam - Neck Exam Neck Exam: Full ROM, Normal Inspection. absent: Lymphadenopathy - Respiratory Exam Respiratory Exam: Clear to Ausculation Bilateral, NORMAL BREATHING PATTERN - Cardiovascular Exam Cardiovascular Exam: REGULAR RHYTHM, +S1, +S2. absent: Murmur - GI/Abdominal Exam GI & Abdominal Exam: Soft, Normal Bowel Sounds. absent: Tenderness - Rectal Exam Rectal Exam: Deferred - Extremities Exam Extremities Exam: Pedal Edema - Neurological Exam Neurological Exam: Alert, Awake, Oriented x3 - Psychiatric Exam Psychiatric exam: Normal Affect, Normal Mood - Skin Skin Exam: Abrasion Assessment and Plan - Assessment and Plan (Free Text) Assessment: 51 yo male with significant PMHx of Chronic lymph edema, ESRD on HD (TTS), morbid obesity, chronic asthma/bronchitis presents to the ED with right leg pain. Plan: Right Lower Extremity Cellulitis 06/01: wbc 27.3, Band 14, procalcitonin 29; meets SIRS criteria 06/01: blood Cx neg x2 * Afebrile, no leukocytosis, bandemia and left shift noted on CBC * Vancomycin 1gm IVP Q12H given in ED * discontinued as pt is ESRD. 06/01: restarted, given only on HD days. Aztreaonam 2gm IVPB q24 Clindamycin 600mg IVPB q8 * ID consult, Dr Boucher, recs appreciated * Duplex scan LE b/l ordered, f/u * Tramadol 50mg PO q8 PRN for moderate pain * Dilaudid 1mg IV q4 PRN for severe pain ESRD on HD * BUN 59, Cr 3.9 * Renal diet * Liberalized diet to regular diet as pt was non-compliant with renal diet * Nephro consulted- Dr. Mota help appreciated - HD TTS * 05/29: Dr Mota recs IV abx; offered pt extra HD today, pt refused due to discomfort Hx Asthma * controlled, no meds needed currently Prophylactic Measures * GI PPX: Pepcid 20mg PO daily * DVT PPX: Heparin SC Q8H, SCDs contraindicated due to intolerance/infection * Ambulate with assistance * PT/OT <ApolinarYuriy M - Last Filed: 06/02/17 15:19> Objective - Vital Signs/Intake and Output Vital Signs (last 24 hours): Temp Pulse Resp BP Pulse Ox 98.0 F 60 20 124/64 97 06/01/17 23:45 06/01/17 23:45 06/01/17 23:45 06/01/17 23:45 06/01/17 23:45 - Medications Medications: Current Medications Famotidine (Pepcid) 20 mg PO DAILY [facility] Last Admin: 06/02/17 09:23 Dose: 20 mg Heparin Sodium (Porcine) (Heparin) 5,000 units SC Q8 [facility] Last Admin: 06/02/17 06:00 Dose: Not Given Hydromorphone HCl (Dilaudid) 1 mg IVP Q4H PRN PRN Reason: Pain, severe (8-10) Last Admin: 06/02/17 13:42 Dose: 1 mg Vancomycin/Sodium Chloride (Vancocin) 1 gm in 200 mls @ 133 mls/hr IVPB TTS [facility] Stop: 06/08/17 15:01 Last Admin: 06/01/17 20:00 Dose: 133 mls/hr Aztreonam 2 gm/ Sodium (Chloride) 100 mls @ 200 mls/hr IVPB Q24H [facility] Last Admin: 06/02/17 13:35 Dose: 200 mls/hr Clindamycin Phosphate (Cleocin) 600 mg in 50 mls @ 102 mls/hr IVPB Q8H [facility] Last Admin: 06/02/17 10:06 Dose: 102 mls/hr Ondansetron HCl (Zofran Inj) 4 mg IVP Q6H PRN PRN Reason: Nausea/Vomiting Psyllium Hydrophilic Mucilloid (Hydrocil Instant) 1 pkt PO DAILY [facility] Last Admin: 06/02/17 09:21 Dose: 1 pkt Saccharomyces Boulardii (Florastor) 250 mg PO DAILY [facility] Last Admin: 06/02/17 09:20 Dose: 250 mg Tramadol HCl (Ultram) 50 mg PO TID PRN PRN Reason: Pain, moderate (4-7) Attending/Attestation - Attestation I have personally seen and examined this patient.: Yes I have fully participated in the care of the patient.: Yes I have reviewed all pertinent clinical information, including history, physical exam and plan: Yes Notes (Text): 06/02/17 15:19 Patient was seen and examined at bedside Patient is awake alert and complains of right lower extremity pain Continue antibiotics medicine of ID Continue hemodialysis as per schedule Discussed the plan of care with the resident and agree with the history and physical and assessment/plan by the resident.
[2017-06-01] MEDS: Vancomycin 1 gm/NS 200 ml 1 GM/200 ML BAG IVPB SCH (20:00)
[2017-06-02] MEDS: HYDROmorphone 1 mg/ml ISec IVP PRN ×6 (00:29→21:36)
[2017-06-02] MEDS: Clindamycin 600mg/50ml D5W 600 MG/50 ML VIAL IVPB SCH ×3 (02:18→18:21)
[2017-06-02 07:44] LABS: BASO % 0.2 % (0.0-2.0); EOS # 0.5 K/uL (0.0-0.7); EOS % 2.2 % (0.0-4.0); HEMOGLOBIN 9.3 g/dL (12.0-18.0); LYMPH # 1.1 K/uL (1.0-4.3); LYMPH % 5.1 % (20.0-40.0); MEAN CELL VOLUME 76.7 fL (80.0-94.0); MEAN CORPUSCULAR HEMOGLOBIN 24.5 pg (27.0-31.0); MEAN CORPUSCULAR HGB CONC 31.9 g/dL (33.0-37.0); MONO # 1.4 K/uL (0.0-0.8); MONO % 6.5 % (0.0-10.0); NEUT # 18.9 K/uL (1.8-7.0); PLATELET COUNT 199 K/uL (130-400); RED CELL DISTRIBUTION WIDTH 17.3 % (11.5-14.5); WHITE BLOOD COUNT 21.9 K/uL (4.8-10.8)
[2017-06-02 08:21] LABS: ALBUMIN 3.4 g/dL (3.5-5.0)
[2017-06-02 08:25] LABS: ALB/GLOB RATIO 0.8 (1.0-2.1); CALCIUM 9.1 mg/dl (8.6-10.4)
[2017-06-02 08:30] LABS: ANISOCYTOSIS SLIGHT; BANDS 12 % (0-2); EOSINOPHIL 3 % (0-4); LYMPHOCYTE 7 % (20-40); MONOCYTE 8 % (0-10); NEUTROPHIL 70 % (50-75); PLATELET ESTIMATE NORMAL (NORMAL); TOTAL CELLS COUNTED 100
[2017-06-02 08:31] LABS: HYPOCHROMIC SLIGHT; LARGE PLATELETS PRESENT
[2017-06-02] MEDS: Saccharomyces Boulardi 250 mg Cap PO SCH (09:20)
[2017-06-02] MEDS: Psyllium Packet PO SCH (09:21)
[2017-06-02] MEDS: Aztreonam 2 GM in Sodium Chloride 0.9% 100 ML IVPB SCH (13:35)
--- NOTE | 2017-06-02 15:07 | CP.PCM.PN ---
<Jonelle Camacho E - Last Filed: 06/02/17 19:55> Subjective - Date & Time of Evaluation Date of Evaluation: 06/02/17 Time of Evaluation: 09:30 - Subjective Subjective: Medicine note (PGY1) : Dr. Jiang's service Patient was seen and examined at bedside. Patient had no acute issues overnight. Patient reports that he is doing better with minimal pain. Patient denies chest pain, sob, nausea, vomiting, abd pain, diarrhea, fever or chills. Patient reports that he tolerated dialysis well yesterday. Objective - Vital Signs/Intake and Output Vital Signs (last 24 hours): Temp Pulse Resp BP Pulse Ox 98.0 F 60 20 124/64 97 06/01/17 23:45 06/01/17 23:45 06/01/17 23:45 06/01/17 23:45 06/01/17 23:45 - Medications Medications: Current Medications Famotidine (Pepcid) 20 mg PO DAILY [facility] Last Admin: 06/02/17 09:23 Dose: 20 mg Heparin Sodium (Porcine) (Heparin) 5,000 units SC Q8 [facility] Last Admin: 06/02/17 06:00 Dose: Not Given Hydromorphone HCl (Dilaudid) 1 mg IVP Q4H PRN PRN Reason: Pain, severe (8-10) Last Admin: 06/02/17 13:42 Dose: 1 mg Vancomycin/Sodium Chloride (Vancocin) 1 gm in 200 mls @ 133 mls/hr IVPB TTS [facility] Stop: 06/08/17 15:01 Last Admin: 06/01/17 20:00 Dose: 133 mls/hr Aztreonam 2 gm/ Sodium (Chloride) 100 mls @ 200 mls/hr IVPB Q24H [facility] Last Admin: 06/02/17 13:35 Dose: 200 mls/hr Clindamycin Phosphate (Cleocin) 600 mg in 50 mls @ 102 mls/hr IVPB Q8H [facility] Last Admin: 06/02/17 10:06 Dose: 102 mls/hr Ondansetron HCl (Zofran Inj) 4 mg IVP Q6H PRN PRN Reason: Nausea/Vomiting Psyllium Hydrophilic Mucilloid (Hydrocil Instant) 1 pkt PO DAILY [facility] Last Admin: 06/02/17 09:21 Dose: 1 pkt Saccharomyces Boulardii (Florastor) 250 mg PO DAILY [facility] Last Admin: 06/02/17 09:20 Dose: 250 mg Tramadol HCl (Ultram) 50 mg PO TID PRN PRN Reason: Pain, moderate (4-7) - Constitutional Appears: Well, No Acute Distress - Head Exam Head Exam: NORMAL INSPECTION, NORMOCEPHALIC - Eye Exam Eye Exam: EOMI - ENT Exam ENT Exam: Mucous Membranes Moist, Normal Exam - Respiratory Exam Respiratory Exam: Clear to Ausculation Bilateral, NORMAL BREATHING PATTERN - Cardiovascular Exam Cardiovascular Exam: REGULAR RHYTHM, +S1, +S2 - GI/Abdominal Exam GI & Abdominal Exam: Soft, Normal Bowel Sounds - Neurological Exam Neurological Exam: Alert, Awake, Oriented x3 - Psychiatric Exam Psychiatric exam: Normal Affect, Normal Mood - Skin Skin Exam: Dry, Normal Color, Warm Assessment and Plan (1) Cellulitis of right lower leg Assessment & Plan: 06/01: wbc 27.3----> 21.9 (06/02/17); improving, Band 14, procalcitonin 29.33; meets SIRS criteria 06/01: blood Cx neg x2 ID consult, Dr Boucher, recs appreciated * Afebrile, no leukocytosis, bandemia and left shift noted on CBC * Vancomycin 1gm IVP Q12H given in ED * discontinued as pt is ESRD. 06/01: restarted, given only on HD days. Aztreaonam 2gm IVPB q24 Clindamycin 600mg IVPB q8 * Tramadol 50mg PO q8 PRN for moderate pain * Dilaudid 1mg IV q4 PRN for severe pain * Pending Duplex scan LE b/l ordered, f/u * PT/OT Evaluation Status: Acute (2) Elevated WBC count Assessment & Plan: Improving ID consult---> Dr. Escobedo on board 06/01: wbc 27.3----> 21.9 (06/02/17); improving, Band 14-----> 12 (06/02/17) * Aztreaonam 2gm IVPB q24 * Clindamycin 600mg IVPB q8 * Vancomycin 1gm on dialysis Status: Acute (3) ESRD on hemodialysis Assessment & Plan: BUN 59, Cr 3.9 ---06/01/17 BUN 50, Cr 3.5----> 06/02/17 * Renal diet * Liberalized diet to regular diet as pt was non-compliant with renal diet * Dialysis on Wednesday, , and Wednesday * Nephro consulted- Dr. Mota help appreciated * 05/29: Dr Mota recs IV abx; offered pt extra HD today, pt refused due to discomfort Status: Chronic (4) Lymphedema Assessment & Plan: Bilateral Lower Extremities Hemodialysis on Wednesday, and Wednesday Status: Chronic (5) History of asthma Assessment & Plan: controlled, no meds needed currently Status: Chronic (6) Prophylactic measure Assessment & Plan: GI PPX: Pepcid 20mg PO daily * DVT PPX: Heparin SC Q8H, SCDs contraindicated due to intolerance/infection and chronic lymphedema * Ambulate with assistance * PT/OT Status: Acute <Yuriy Jiang - Last Filed: 06/03/17 17:23> Objective - Vital Signs/Intake and Output Vital Signs (last 24 hours): Temp Pulse Resp BP Pulse Ox 98.2 F 80 20 124/71 96 06/03/17 15:51 06/03/17 15:51 06/03/17 15:51 06/03/17 15:51 06/03/17 15:51 - Medications Medications: Current Medications Albuterol/Ipratropium (Duoneb 3 Mg/0.5 Mg (3 Ml) Ud) 3 ml INH RQ6 PRN PRN Reason: Shortness of Breath Docusate Sodium (Colace) 100 mg PO BID PRN PRN Reason: Constipation Epoetin [place] (Procrit) 10,000 unit IV TTS [facility] Last Admin: 06/03/17 11:33 Dose: 10,000 unit Famotidine (Pepcid) 20 mg PO DAILY [facility] Last Admin: 06/03/17 15:28 Dose: 20 mg Heparin Sodium (Porcine) (Heparin) 5,000 units SC Q8 [facility] Last Admin: 06/03/17 14:40 Dose: 5,000 units Heparin Sodium (Porcine) (Heparin) 2,000 units IVP TTS [facility] Stop: 06/15/17 10:01 Last Admin: 06/03/17 10:21 Dose: 2,000 units Hydromorphone HCl (Dilaudid) 1 mg IVP Q4H PRN PRN Reason: Pain, severe (8-10) Last Admin: 06/03/17 14:44 Dose: 1 mg Vancomycin/Sodium Chloride (Vancocin) 1 gm in 200 mls @ 133 mls/hr IVPB TTS [facility] Stop: 06/08/17 15:01 Last Admin: 06/03/17 16:58 Dose: 133 mls/hr Aztreonam 2 gm/ Sodium (Chloride) 100 mls @ 200 mls/hr IVPB Q24H [facility] Last Admin: 06/03/17 14:48 Dose: 200 mls/hr Clindamycin Phosphate (Cleocin) 600 mg in 50 mls @ 102 mls/hr IVPB Q8H [facility] Last Admin: 06/03/17 10:00 Dose: Not Given Nystatin (Nystop Topical Powder) 1 applic TOP BID [facility] Last Admin: 06/03/17 14:55 Dose: 1 applic Ondansetron HCl (Zofran Inj) 4 mg IVP Q6H PRN PRN Reason: Nausea/Vomiting Psyllium Hydrophilic Mucilloid (Hydrocil Instant) 1 pkt PO DAILY [facility] Last Admin: 06/03/17 15:28 Dose: 1 pkt Saccharomyces Boulardii (Florastor) 250 mg PO DAILY [facility] Last Admin: 06/03/17 15:28 Dose: 250 mg Tramadol HCl (Ultram) 50 mg PO TID PRN PRN Reason: Pain, moderate (4-7) - Labs Labs: 06/03/17 07:12 06/03/17 07:12 Attending/Attestation - Attestation I have personally seen and examined this patient.: Yes I have fully participated in the care of the patient.: Yes I have reviewed all pertinent clinical information, including history, physical exam and plan: Yes Notes (Text): 06/03/17 17:19 Patient was seen and examined at bedside with the resident Patient states that leg swelling and pain is improving We will continue IV antibiotics Continue hemodialysis as per schedule Discussed plan of care with the resident and agree with the assessment and plan by the resident.
--- NOTE | 2017-06-02 15:10 | CP.PCM.PN ---
Subjective - Date & Time of Evaluation Date of Evaluation: 06/02/17 Time of Evaluation: 13:25 - Subjective Subjective: no complaints right leg with decreased swelling and erythema tolerated HD yesterday wants heparin bolus with HD no chest pain appetite good no fever no chills no nausea minimal urine output no pruritis Objective - Vital Signs/Intake and Output Vital Signs (last 24 hours): Temp Pulse Resp BP Pulse Ox 98.0 F 60 20 124/64 97 06/01/17 23:45 06/01/17 23:45 06/01/17 23:45 06/01/17 23:45 06/01/17 23:45 - Medications Medications: Current Medications Famotidine (Pepcid) 20 mg PO DAILY [facility] Last Admin: 06/02/17 09:23 Dose: 20 mg Heparin Sodium (Porcine) (Heparin) 5,000 units SC Q8 [facility] Last Admin: 06/02/17 06:00 Dose: Not Given Hydromorphone HCl (Dilaudid) 1 mg IVP Q4H PRN PRN Reason: Pain, severe (8-10) Last Admin: 06/02/17 13:42 Dose: 1 mg Vancomycin/Sodium Chloride (Vancocin) 1 gm in 200 mls @ 133 mls/hr IVPB TTS [facility] Stop: 06/08/17 15:01 Last Admin: 06/01/17 20:00 Dose: 133 mls/hr Aztreonam 2 gm/ Sodium (Chloride) 100 mls @ 200 mls/hr IVPB Q24H [facility] Last Admin: 06/02/17 13:35 Dose: 200 mls/hr Clindamycin Phosphate (Cleocin) 600 mg in 50 mls @ 102 mls/hr IVPB Q8H [facility] Last Admin: 06/02/17 10:06 Dose: 102 mls/hr Ondansetron HCl (Zofran Inj) 4 mg IVP Q6H PRN PRN Reason: Nausea/Vomiting Psyllium Hydrophilic Mucilloid (Hydrocil Instant) 1 pkt PO DAILY [facility] Last Admin: 06/02/17 09:21 Dose: 1 pkt Saccharomyces Boulardii (Florastor) 250 mg PO DAILY [facility] Last Admin: 06/02/17 09:20 Dose: 250 mg Tramadol HCl (Ultram) 50 mg PO TID PRN PRN Reason: Pain, moderate (4-7) - Constitutional Appears: Non-toxic, No Acute Distress - Head Exam Head Exam: ATRAUMATIC - Eye Exam Eye Exam: EOMI - ENT Exam ENT Exam: Mucous Membranes Moist - Neck Exam Neck Exam: Full ROM. absent: Lymphadenopathy - Respiratory Exam Respiratory Exam: Clear to Ausculation Bilateral. absent: Accessory Muscle Use - Cardiovascular Exam Cardiovascular Exam: REGULAR RHYTHM. absent: Rubs - GI/Abdominal Exam GI & Abdominal Exam: Soft. absent: Tenderness Additional comments: obese - Extremities Exam Additional comments: lymphedema right thigh with erythema - Neurological Exam Neurological Exam: Alert, Oriented x3 Assessment and Plan - Assessment and Plan (Free Text) Assessment: esrd lymphedema chronic cellulitis continue ab HD in am heparin ordered with treatment
--- NOTE | 2017-06-02 22:37 | CP.PCM.PN ---
Subjective - Date & Time of Evaluation Date of Evaluation: 06/02/17 Time of Evaluation: 02:15 - Subjective Subjective: Patient says he still has pain and still with cellulitis. he had increased wbc count, He did say that he had augmentin for 14 days and stopped last and on wednesday he had pain and swelling in right groin and thigh. he also has extensive lymphantiasis Objective - Vital Signs/Intake and Output Vital Signs (last 24 hours): Temp Pulse Resp BP Pulse Ox 97.5 F L 77 20 123/74 94 L 06/02/17 15:45 06/02/17 15:45 06/02/17 15:45 06/02/17 15:45 06/02/17 15:45 - Medications Medications: Current Medications Famotidine (Pepcid) 20 mg PO DAILY [facility] Last Admin: 06/02/17 09:23 Dose: 20 mg Heparin Sodium (Porcine) (Heparin) 5,000 units SC Q8 [facility] Last Admin: 06/02/17 21:37 Dose: 5,000 units Heparin Sodium (Porcine) (Heparin) 2,000 units IVP TTS [facility] Stop: 06/15/17 10:01 Hydromorphone HCl (Dilaudid) 1 mg IVP Q4H PRN PRN Reason: Pain, severe (8-10) Last Admin: 06/02/17 21:36 Dose: 1 mg Vancomycin/Sodium Chloride (Vancocin) 1 gm in 200 mls @ 133 mls/hr IVPB TTS [facility] Stop: 06/08/17 15:01 Last Admin: 06/01/17 20:00 Dose: 133 mls/hr Aztreonam 2 gm/ Sodium (Chloride) 100 mls @ 200 mls/hr IVPB Q24H [facility] Last Admin: 06/02/17 13:35 Dose: 200 mls/hr Clindamycin Phosphate (Cleocin) 600 mg in 50 mls @ 102 mls/hr IVPB Q8H [facility] Last Admin: 06/02/17 18:21 Dose: 102 mls/hr Ondansetron HCl (Zofran Inj) 4 mg IVP Q6H PRN PRN Reason: Nausea/Vomiting Psyllium Hydrophilic Mucilloid (Hydrocil Instant) 1 pkt PO DAILY [facility] Last Admin: 06/02/17 09:21 Dose: 1 pkt Saccharomyces Boulardii (Florastor) 250 mg PO DAILY [facility] Last Admin: 06/02/17 09:20 Dose: 250 mg Tramadol HCl (Ultram) 50 mg PO TID PRN PRN Reason: Pain, moderate (4-7) - Constitutional Appears: No Acute Distress, Older Than Stated Age - Head Exam Head Exam: ATRAUMATIC - Eye Exam Eye Exam: Normal appearance - ENT Exam ENT Exam: Mucous Membranes Moist - Neck Exam Neck Exam: Normal Inspection - Cardiovascular Exam Cardiovascular Exam: RRR - GI/Abdominal Exam GI & Abdominal Exam: Normal Bowel Sounds - Extremities Exam Additional comments: elephatiasis and cellulitis present Assessment and Plan (1) Cellulitis Status: Acute (2) ESRD (end stage renal disease) Status: Acute (3) Lymphedema Status: Chronic (4) Anemia Status: Chronic - Assessment and Plan (Free Text) Assessment: Patient has a increased wbc count need to r/o abscess in these folds and surgical eval if wbc count does not decrease with the medications.
[2017-06-03] MEDS: HYDROmorphone 1 mg/ml ISec IVP PRN ×4 (01:47→14:44)
[2017-06-03] MEDS: Clindamycin 600mg/50ml D5W 600 MG/50 ML VIAL IVPB SCH ×3 (01:48→18:56)
--- NOTE | 2017-06-03 06:31 | CP.PCM.PN ---
<DougFrannymanda Freeman - Last Filed: 06/03/17 18:42> Subjective - Date & Time of Evaluation Date of Evaluation: 06/03/17 Time of Evaluation: 07:10 - Subjective Subjective: Medicine Note (PGY 1) : Dr. Jiang's service Patient was seen and examined at bedside. Patient reports that he is doing better with minimal pain. Patient denies any acute changes overnight. Patient will have dialysis today. Patient denies chest pain, shortness of breath, abdominal pain, nausea, vomiting, fever and chills. Patient admits to having a bowel movement this morning. Objective - Vital Signs/Intake and Output Vital Signs (last 24 hours): Temp Pulse Resp BP Pulse Ox 98.0 F 65 20 118/74 97 06/02/17 23:40 06/02/17 23:40 06/02/17 23:40 06/02/17 23:40 06/02/17 23:40 - Medications Medications: Current Medications Famotidine (Pepcid) 20 mg PO DAILY [facility] Last Admin: 06/02/17 09:23 Dose: 20 mg Heparin Sodium (Porcine) (Heparin) 5,000 units SC Q8 [facility] Last Admin: 06/03/17 05:52 Dose: 5,000 units Heparin Sodium (Porcine) (Heparin) 2,000 units IVP TTS [facility] Stop: 06/15/17 10:01 Hydromorphone HCl (Dilaudid) 1 mg IVP Q4H PRN PRN Reason: Pain, severe (8-10) Last Admin: 06/03/17 05:49 Dose: 1 mg Vancomycin/Sodium Chloride (Vancocin) 1 gm in 200 mls @ 133 mls/hr IVPB TTS [facility] Stop: 06/08/17 15:01 Last Admin: 06/01/17 20:00 Dose: 133 mls/hr Aztreonam 2 gm/ Sodium (Chloride) 100 mls @ 200 mls/hr IVPB Q24H [facility] Last Admin: 06/02/17 13:35 Dose: 200 mls/hr Clindamycin Phosphate (Cleocin) 600 mg in 50 mls @ 102 mls/hr IVPB Q8H [facility] Last Admin: 06/03/17 01:48 Dose: 102 mls/hr Ondansetron HCl (Zofran Inj) 4 mg IVP Q6H PRN PRN Reason: Nausea/Vomiting Psyllium Hydrophilic Mucilloid (Hydrocil Instant) 1 pkt PO DAILY [facility] Last Admin: 06/02/17 09:21 Dose: 1 pkt Saccharomyces Boulardii (Florastor) 250 mg PO DAILY [facility] Last Admin: 06/02/17 09:20 Dose: 250 mg Tramadol HCl (Ultram) 50 mg PO TID PRN PRN Reason: Pain, moderate (4-7) - Constitutional Appears: Well, No Acute Distress - Head Exam Head Exam: NORMAL INSPECTION, NORMOCEPHALIC - Eye Exam Eye Exam: EOMI, Normal appearance - ENT Exam ENT Exam: Mucous Membranes Moist, Normal Exam - Respiratory Exam Respiratory Exam: Clear to Ausculation Bilateral, NORMAL BREATHING PATTERN - Cardiovascular Exam Cardiovascular Exam: REGULAR RHYTHM, +S1, +S2 - GI/Abdominal Exam GI & Abdominal Exam: Soft, Normal Bowel Sounds - Extremities Exam Extremities Exam: Pedal Edema (Chronic Lymphedema ), Tenderness - Neurological Exam Neurological Exam: Alert, Awake, Oriented x3 - Psychiatric Exam Psychiatric exam: Normal Affect, Normal Mood - Skin Skin Exam: Dry, Normal Color, Warm Assessment and Plan (1) Cellulitis of right lower leg Assessment & Plan: Improving 06/01: wbc 27.3----> 21.9 (06/02/17); improving, Band 14%, procalcitonin 29.33; meets SIRS criteria * 06/03/17, WBC: 14.4 with neutrophil band of 1% * 06/01: blood Cx neg x2 ID consult, Dr Boucher, recs appreciated * Afebrile, no leukocytosis, bandemia and left shift noted on CBC * Vancomycin 1gm IVP Q12H given in ED * discontinued as pt is ESRD. 06/01: restarted, given only on HD days. Aztreaonam 2gm IVPB q24 Clindamycin 600mg IVPB q8 * Tramadol 50mg PO q8 PRN for moderate pain * Dilaudid 1mg IV q4 PRN for severe pain * 06/03/17: Nystatin topical cream BID for skin fold rashes * Pending Duplex scan: limited study due to patient's habitus * PT/OT Evaluation Status: Acute (2) Elevated WBC count Assessment & Plan: Improving ID consult---> Dr. Escobedo on board 06/01: wbc 27.3----> 21.9 (06/02/17); improving, Band 14-----> 12 (06/02/17) 06/03/17, WBC: 14.4 with neutrophil band of 1% * Aztreaonam 2gm IVPB q24 * Clindamycin 600mg IVPB q8 * Vancomycin 1gm on dialysis Status: Acute (3) ESRD on hemodialysis Assessment & Plan: Stable with dialysis BUN 59, Cr 3.9 ---06/01/17 BUN 50, Cr 3.5----> 06/02/17 * Renal diet * Liberalized diet to regular diet as pt was non-compliant with renal diet * Dialysis on Wednesday, , and Wednesday * Nephro consulted- Dr. Mota help appreciated * 05/29: Dr Mota recs IV abx; offered pt extra HD today, pt refused due to discomfort Status: Chronic (4) Lymphedema Assessment & Plan: Bilateral Lower Extremities Hemodialysis on Wednesday, and Wednesday06/03/17: Lasix 80mg IV daily on non-dialysis as discussed with psychiatric nursing assistant (Dr. Mota) Status: Chronic (5) History of asthma Assessment & Plan: controlled Duoneb 3ml INH RQ6 PRN Status: Chronic (6) Prophylactic measure Assessment & Plan: GI PPX: Pepcid 20mg PO daily * DVT PPX: Heparin SC Q8H, SCDs contraindicated due to intolerance/infection and chronic lymphedema * Ambulate with assistance * PT/OT Status: Acute <Yuriy Jiang - Last Filed: 06/04/17 08:28> Objective - Vital Signs/Intake and Output Vital Signs (last 24 hours): Temp Pulse Resp BP Pulse Ox 98.2 F 77 20 127/84 95 06/03/17 23:40 06/03/17 23:40 06/03/17 23:40 06/03/17 23:40 06/03/17 23:40 Intake and Output: 06/04/17 06/04/17 06:59 18:59 Output Total 500 Balance -500 - Medications Medications: Current Medications Albuterol/Ipratropium (Duoneb 3 Mg/0.5 Mg (3 Ml) Ud) 3 ml INH RQ6 PRN PRN Reason: Shortness of Breath Docusate Sodium (Colace) 100 mg PO BID PRN PRN Reason: Constipation Epoetin Ventura (Procrit) 10,000 unit IV TTS [facility] Last Admin: 06/03/17 11:33 Dose: 10,000 unit Famotidine (Pepcid) 20 mg PO DAILY [facility] Last Admin: 06/03/17 15:28 Dose: 20 mg Furosemide (Lasix) 80 mg IVP DAILY [facility] Heparin Sodium (Porcine) (Heparin) 5,000 units SC Q8 [facility] Last Admin: 06/04/17 05:43 Dose: 5,000 units Heparin Sodium (Porcine) (Heparin) 2,000 units IVP TTS [facility] Stop: 06/15/17 10:01 Last Admin: 06/03/17 10:21 Dose: 2,000 units Hydromorphone HCl (Dilaudid) 1 mg IVP Q4H PRN PRN Reason: Pain, severe (8-10) Last Admin: 06/04/17 04:56 Dose: 1 mg Vancomycin/Sodium Chloride (Vancocin) 1 gm in 200 mls @ 133 mls/hr IVPB TTS [facility] Stop: 06/08/17 15:01 Last Admin: 06/03/17 16:58 Dose: 133 mls/hr Aztreonam 2 gm/ Sodium (Chloride) 100 mls @ 200 mls/hr IVPB Q24H [facility] Last Admin: 06/03/17 14:48 Dose: 200 mls/hr Clindamycin Phosphate (Cleocin) 600 mg in 50 mls @ 102 mls/hr IVPB Q8H [facility] Last Admin: 06/04/17 01:44 Dose: 102 mls/hr Nystatin (Nystop Topical Powder) 1 applic TOP BID [facility] Last Admin: 06/03/17 19:01 Dose: Not Given Ondansetron HCl (Zofran Inj) 4 mg IVP Q6H PRN PRN Reason: Nausea/Vomiting Psyllium Hydrophilic Mucilloid (Hydrocil Instant) 1 pkt PO DAILY [facility] Last Admin: 06/03/17 15:28 Dose: 1 pkt Saccharomyces Boulardii (Florastor) 250 mg PO DAILY [facility] Last Admin: 06/03/17 15:28 Dose: 250 mg Tramadol HCl (Ultram) 50 mg PO TID PRN PRN Reason: Pain, moderate (4-7) - Labs Labs: 06/04/17 08:13 06/03/17 07:12 Attending/Attestation - Attestation I have personally seen and examined this patient.: Yes I have fully participated in the care of the patient.: Yes I have reviewed all pertinent clinical information, including history, physical exam and plan: Yes Notes (Text): 06/04/17 08:26 Patient was seen and examined at bedside He status post hemodialysis today Patient's left leg swelling and pain and erythema are improving Discussed with . Continue IV antibiotics as per her recommendation Discussed with case management Discussed with the resident and agree with the assessment and plan by the resident.
[2017-06-03 07:20] LABS: BASO # 0.1 K/uL (0.0-0.2); BASO % 0.4 % (0.0-2.0); EOS # 0.6 K/uL (0.0-0.7); EOS % 4.3 % (0.0-4.0); HEMOGLOBIN 9.4 g/dL (12.0-18.0); LYMPH # 1.3 K/uL (1.0-4.3); LYMPH % 8.8 % (20.0-40.0); MEAN CELL VOLUME 76.7 fL (80.0-94.0); MEAN CORPUSCULAR HEMOGLOBIN 24.2 pg (27.0-31.0); MEAN CORPUSCULAR HGB CONC 31.6 g/dL (33.0-37.0); MEAN PLATELET VOLUME 8.3 fL (7.2-11.7); MONO # 1.1 K/uL (0.0-0.8); NEUT # 11.3 K/uL (1.8-7.0); NEUT % 78.5 % (50.0-75.0); PLATELET COUNT 233 K/uL (130-400); RBC 3.87 Mil/uL (4.40-5.90); RED CELL DISTRIBUTION WIDTH 17.1 % (11.5-14.5); WHITE BLOOD COUNT 14.4 K/uL (4.8-10.8)
[2017-06-03 08:02] LABS: ALBUMIN 3.4 g/dL (3.5-5.0)
[2017-06-03 08:06] LABS: CALCIUM 9.5 mg/dl (8.6-10.4)
[2017-06-03 08:07] LABS: ALB/GLOB RATIO 0.7 (1.0-2.1)
[2017-06-03 08:39] LABS: ANISOCYTOSIS SLIGHT; BANDS 1 % (0-2); EOSINOPHIL 3 % (0-4); HYPOCHROMIC SLIGHT; LYMPHOCYTE 9 % (20-40); MONOCYTE 8 % (0-10); MYELOCYTE 1 % (0-0); NEUTROPHIL 78 % (50-75); PLATELET ESTIMATE NORMAL (NORMAL); POIKILOCYTOSIS SLIGHT; TOTAL CELLS COUNTED 100
[2017-06-03 08:40] LABS: LARGE PLATELETS PRESENT; TARGET CELLS SLIGHT; TEARDROP CELLS SLIGHT
[2017-06-03] MEDS: Psyllium Packet PO SCH ×2 (10:00→15:28)
[2017-06-03] MEDS: Vancomycin 1 gm/NS 200 ml 1 GM/200 ML BAG IVPB SCH ×2 (10:00→16:58)
[2017-06-03] MEDS: Saccharomyces Boulardi 250 mg Cap PO SCH ×2 (10:00→15:28)
[2017-06-03] MEDS ORDERED: Albuterol-Ipratrop 3 mg / 0.5 (3 ml) UD INH PRN (10:12)
--- NOTE | 2017-06-03 10:57 | CP.PCM.PN ---
Subjective - Date & Time of Evaluation Date of Evaluation: 06/03/17 Time of Evaluation: 10:55 - Subjective Subjective: Seen on dialysis Trying to maximize UF Discussed about adding lasix to regimen with housestaff Hg dropped- will re-order ESAs LEs appear same Objective - Vital Signs/Intake and Output Vital Signs (last 24 hours): Temp Pulse Resp BP Pulse Ox 98.2 F 72 16 123/65 96 06/03/17 10:05 06/03/17 10:05 06/03/17 10:05 06/03/17 10:40 06/03/17 10:05 - Medications Medications: Current Medications Albuterol/Ipratropium (Duoneb 3 Mg/0.5 Mg (3 Ml) Ud) 3 ml INH RQ6 PRN PRN Reason: Shortness of Breath Docusate Sodium (Colace) 100 mg PO BID PRN PRN Reason: Constipation Famotidine (Pepcid) 20 mg PO DAILY [facility] Last Admin: 06/02/17 09:23 Dose: 20 mg Heparin Sodium (Porcine) (Heparin) 5,000 units SC Q8 [facility] Last Admin: 06/03/17 05:52 Dose: 5,000 units Heparin Sodium (Porcine) (Heparin) 2,000 units IVP TTS [facility] Stop: 06/15/17 10:01 Last Admin: 06/03/17 10:21 Dose: 2,000 units Hydromorphone HCl (Dilaudid) 1 mg IVP Q4H PRN PRN Reason: Pain, severe (8-10) Last Admin: 06/03/17 10:07 Dose: 1 mg Vancomycin/Sodium Chloride (Vancocin) 1 gm in 200 mls @ 133 mls/hr IVPB TTS [facility] Stop: 06/08/17 15:01 Last Admin: 06/01/17 20:00 Dose: 133 mls/hr Aztreonam 2 gm/ Sodium (Chloride) 100 mls @ 200 mls/hr IVPB Q24H [facility] Last Admin: 06/02/17 13:35 Dose: 200 mls/hr Clindamycin Phosphate (Cleocin) 600 mg in 50 mls @ 102 mls/hr IVPB Q8H [facility] Last Admin: 06/03/17 01:48 Dose: 102 mls/hr Nystatin (Nystop Topical Powder) 1 applic TOP BID [facility] Ondansetron HCl (Zofran Inj) 4 mg IVP Q6H PRN PRN Reason: Nausea/Vomiting Psyllium Hydrophilic Mucilloid (Hydrocil Instant) 1 pkt PO DAILY [facility] Last Admin: 06/02/17 09:21 Dose: 1 pkt Saccharomyces Boulardii (Florastor) 250 mg PO DAILY [facility] Last Admin: 06/02/17 09:20 Dose: 250 mg Tramadol HCl (Ultram) 50 mg PO TID PRN PRN Reason: Pain, moderate (4-7) - Labs Labs: 06/03/17 07:12 06/03/17 07:12 - Constitutional Appears: No Acute Distress, Chronically Ill - Head Exam Head Exam: ATRAUMATIC, NORMAL INSPECTION - Eye Exam Eye Exam: EOMI, Normal appearance - Neck Exam Neck Exam: Normal Inspection. absent: Tenderness - Respiratory Exam Respiratory Exam: Clear to Ausculation Bilateral, NORMAL BREATHING PATTERN - Cardiovascular Exam Cardiovascular Exam: REGULAR RHYTHM, +S1 - GI/Abdominal Exam GI & Abdominal Exam: Soft. absent: Tenderness - Extremities Exam Extremities Exam: Pedal Edema, Tenderness - Neurological Exam Neurological Exam: Alert, CN II-XII Intact - Skin Skin Exam: Dry, Warm Assessment and Plan (1) ESRD (end stage renal disease) Status: Acute (2) Hypertensive chronic kidney disease with stage 5 chronic kidney disease or end stage renal disease Status: Acute (3) Cellulitis Status: Acute (4) Lymphedema of lower extremity Status: Chronic - Assessment and Plan (Free Text) Plan: IV ABs Dialysis with adequate UF Re-add ESAs Consider oral lasix as well
[2017-06-03] MEDS: Epoetin Alfa 10,000 unit/ml Dialysis IV SCH (11:33)
[2017-06-03] MEDS: Aztreonam 2 GM in Sodium Chloride 0.9% 100 ML IVPB SCH ×2 (13:00→14:48)
--- NOTE | 2017-06-03 13:26 | VASCLAB ---
PROCEDURE: Lower Extremity Venous Duplex Exam. HISTORY: pain in right leg on dorsiflexion PRIORS: None. TECHNIQUE: Bilateral common femoral, femoral, popliteal and posterior tibial, peroneal and great saphenous veins were evaluated. Flow was assessed with color Doppler, compressibility, assessment of phasic flow and augmentation response. Report prepared by SCARLET Moreno, RVT FINDINGS: RIGHT: 1. Common Femoral Vein: 1.1. Compressibility - Fully compressible: Thrombus - None : Flow - Phasic: Augmentation -Normal: Reflux - None. 2. Femoral Vein: 2.1. Compressibility - Fully compressible: Thrombus - None : Flow - Phasic: Augmentation -Normal: Reflux - None. 3. Popliteal Vein: 3.1. Compressibility - Fully compressible: Thrombus - None : Flow - Phasic: Augmentation -Normal: Reflux - None. 4. Posterior Tibial Vein: 4.1. Compressibility - : Thrombus - : Flow - : Augmentation -: Reflux - . 5. Peroneal Vein: 5.1. Compressibility - : Thrombus - : Flow - : Augmentation -: Reflux - . 6. Great Saphenous Vein: 6.1. Compressibility - Fully compressible: Thrombus - None: Flow - Phasic: Augmentation - Normal: Reflux - None. LEFT: 1. Common Femoral Vein: 1.1. Compressibility - Fully compressible: Thrombus - None: Flow - Phasic: Augmentation -Normal: Reflux - None. 2. Femoral Vein: 2.1. Compressibility - Fully compressible: Thrombus - None: Flow - Phasic: Augmentation -Normal: Reflux - None. 3. Popliteal Vein: 3.1. Compressibility - Fully compressible: Thrombus - None : Flow - Phasic: Augmentation -Normal: Reflux - None. 4. Posterior Tibial Vein: 4.1. Compressibility - : Thrombus - : Flow - : Augmentation -: Reflux - . 5. Peroneal Vein: 5.1. Compressibility - : Thrombus - : Flow - : Augmentation -: Reflux - . 6. Great Saphenous Vein: 6.1. Compressibility - Fully compressible: Thrombus - None: Flow - Phasic: Augmentation - Normal: Reflux - None. OTHER FINDINGS: due to swelling in the calf, bilateral peroneal and posterior tibial vein are not visualized. Technically difficult and limited study due to patient body habitus. IMPRESSION: Right: No evidence of deep or superficial vein thrombosis of the right lower extremity. Normal valve function noted of the right side. Left: No evidence of deep or superficial vein thrombosis of the left lower extremity. Normal valve function noted of the left side.
--- NOTE | 2017-06-03 17:55 | CP.PCM.PN ---
Subjective - Date & Time of Evaluation Date of Evaluation: 06/03/17 Time of Evaluation: 04:20 - Subjective Subjective: Patient is feeling little better Patient is without clothes and he says he has no clothes he was going to buy clothes on june 01 sale when he ended hospital. His pain is controlled with medications. He has no nausea no vomiting, He had dialysis Objective - Vital Signs/Intake and Output Vital Signs (last 24 hours): Temp Pulse Resp BP Pulse Ox 98.2 F 80 20 124/71 96 06/03/17 15:51 06/03/17 15:51 06/03/17 15:51 06/03/17 15:51 06/03/17 15:51 Intake and Output: 06/03/17 06/03/17 06:59 18:59 Intake Total 100 Balance 100 - Medications Medications: Current Medications Albuterol/Ipratropium (Duoneb 3 Mg/0.5 Mg (3 Ml) Ud) 3 ml INH RQ6 PRN PRN Reason: Shortness of Breath Docusate Sodium (Colace) 100 mg PO BID PRN PRN Reason: Constipation Epoetin [place] (Procrit) 10,000 unit IV TTS [facility] Last Admin: 06/03/17 11:33 Dose: 10,000 unit Famotidine (Pepcid) 20 mg PO DAILY [facility] Last Admin: 06/03/17 15:28 Dose: 20 mg Heparin Sodium (Porcine) (Heparin) 5,000 units SC Q8 [facility] Last Admin: 06/03/17 14:40 Dose: 5,000 units Heparin Sodium (Porcine) (Heparin) 2,000 units IVP TTS [facility] Stop: 06/15/17 10:01 Last Admin: 06/03/17 10:21 Dose: 2,000 units Hydromorphone HCl (Dilaudid) 1 mg IVP Q4H PRN PRN Reason: Pain, severe (8-10) Last Admin: 06/03/17 14:44 Dose: 1 mg Vancomycin/Sodium Chloride (Vancocin) 1 gm in 200 mls @ 133 mls/hr IVPB TTS [facility] Stop: 06/08/17 15:01 Last Admin: 06/03/17 16:58 Dose: 133 mls/hr Aztreonam 2 gm/ Sodium (Chloride) 100 mls @ 200 mls/hr IVPB Q24H [facility] Last Admin: 06/03/17 14:48 Dose: 200 mls/hr Clindamycin Phosphate (Cleocin) 600 mg in 50 mls @ 102 mls/hr IVPB Q8H [facility] Last Admin: 06/03/17 10:00 Dose: Not Given Nystatin (Nystop Topical Powder) 1 applic TOP BID [facility] Last Admin: 06/03/17 14:55 Dose: 1 applic Ondansetron HCl (Zofran Inj) 4 mg IVP Q6H PRN PRN Reason: Nausea/Vomiting Psyllium Hydrophilic Mucilloid (Hydrocil Instant) 1 pkt PO DAILY [facility] Last Admin: 06/03/17 15:28 Dose: 1 pkt Saccharomyces Boulardii (Florastor) 250 mg PO DAILY [facility] Last Admin: 06/03/17 15:28 Dose: 250 mg Tramadol HCl (Ultram) 50 mg PO TID PRN PRN Reason: Pain, moderate (4-7) - Labs Labs: 06/03/17 07:12 06/03/17 07:12 - Constitutional Appears: No Acute Distress - Head Exam Head Exam: ATRAUMATIC, NORMOCEPHALIC Additional comments: obesity present - Eye Exam Eye Exam: Normal appearance Pupil Exam: NORMAL ACCOMODATION - ENT Exam ENT Exam: Normal Exam - Neck Exam Neck Exam: Normal Inspection - Respiratory Exam Respiratory Exam: Clear to Ausculation Bilateral, NORMAL BREATHING PATTERN - Cardiovascular Exam Cardiovascular Exam: REGULAR RHYTHM - GI/Abdominal Exam GI & Abdominal Exam: Soft, Normal Bowel Sounds - Extremities Exam Additional comments: Bilateral lymph edema has a fold with thickness,tenderness and open skin in the fold on right groin no drainage present Assessment and Plan (1) Cellulitis Assessment & Plan: Patient wbc are decreasing and symptoms are better patient to continue clindamycin 3 more days of iv antibiotics and 3 times Vancomycin on dialysis . Will dc azactam if patient is stable tomorrow Status: Acute (2) ESRD (end stage renal disease) Status: Acute (3) Lymphedema Status: Chronic (4) Anemia Status: Chronic
[2017-06-04] MEDS: Clindamycin 600mg/50ml D5W 600 MG/50 ML VIAL IVPB SCH ×3 (01:44→18:16)
[2017-06-04] MEDS: HYDROmorphone 1 mg/ml ISec IVP PRN ×2 (04:56→10:01)
[2017-06-04 08:21] LABS: BASO # 0.1 K/uL (0.0-0.2); BASO % 0.6 % (0.0-2.0); EOS # 0.6 K/uL (0.0-0.7); EOS % 5.3 % (0.0-4.0); HEMOGLOBIN 10.2 g/dL (12.0-18.0); LYMPH # 1.1 K/uL (1.0-4.3); LYMPH % 9.3 % (20.0-40.0); MEAN CELL VOLUME 76.4 fL (80.0-94.0); MEAN CORPUSCULAR HEMOGLOBIN 24.1 pg (27.0-31.0); MEAN CORPUSCULAR HGB CONC 31.6 g/dL (33.0-37.0); MEAN PLATELET VOLUME 8.2 fL (7.2-11.7); MONO # 1.3 K/uL (0.0-0.8); MONO % 10.7 % (0.0-10.0); NEUT # 9.1 K/uL (1.8-7.0); NEUT % 74.1 % (50.0-75.0); PLATELET COUNT 277 K/uL (130-400); RBC 4.21 Mil/uL (4.40-5.90); RED CELL DISTRIBUTION WIDTH 17.7 % (11.5-14.5); WHITE BLOOD COUNT 12.2 K/uL (4.8-10.8)
[2017-06-04 08:37] LABS: ALBUMIN 3.5 g/dL (3.5-5.0)
[2017-06-04 08:40] LABS: ALB/GLOB RATIO 0.7 (1.0-2.1)
[2017-06-04 08:41] LABS: CALCIUM 9.6 mg/dl (8.6-10.4)
[2017-06-04] MEDS: Psyllium Packet PO SCH (09:29)
[2017-06-04] MEDS: Saccharomyces Boulardi 250 mg Cap PO SCH (09:29)
[2017-06-04 10:03] LABS: MONOCYTE 13 % (0-10); TOTAL CELLS COUNTED 100
--- NOTE | 2017-06-04 10:04 | CP.PCM.PN ---
<Miller PlaceFranny greenemichellrapit Pete - Last Filed: 06/04/17 21:38> Subjective - Date & Time of Evaluation Date of Evaluation: 06/04/17 Time of Evaluation: 08:20 - Subjective Subjective: Medicine Note (PGY 1) : Dr. Jiang's service Patient was seen and examined at bedside. Patient reports that he is doing better with minimal pain. Patient denies any acute changes overnight. Patient will have dialysis tomorrow. Patient denies chest pain, shortness of breath, abdominal pain, nausea, vomiting, fever and chills. Objective - Vital Signs/Intake and Output Vital Signs (last 24 hours): Temp Pulse Resp BP Pulse Ox 98.4 F 78 20 128/70 94 L 06/04/17 07:00 06/04/17 07:00 06/04/17 07:00 06/04/17 09:33 06/04/17 07:00 Intake and Output: 06/04/17 06/04/17 06:59 18:59 Output Total 500 Balance -500 - Medications Medications: Current Medications Albuterol/Ipratropium (Duoneb 3 Mg/0.5 Mg (3 Ml) Ud) 3 ml INH RQ6 PRN PRN Reason: Shortness of Breath Docusate Sodium (Colace) 100 mg PO BID PRN PRN Reason: Constipation Last Admin: 06/04/17 09:29 Dose: 100 mg Epoetin Ventura (Procrit) 10,000 unit IV TTS [facility] Last Admin: 06/03/17 11:33 Dose: 10,000 unit Famotidine (Pepcid) 20 mg PO DAILY [facility] Last Admin: 06/04/17 09:29 Dose: 20 mg Furosemide (Lasix) 80 mg IVP DAILY [facility] Last Admin: 06/04/17 09:33 Dose: 80 mg Heparin Sodium (Porcine) (Heparin) 5,000 units SC Q8 [facility] Last Admin: 06/04/17 05:43 Dose: 5,000 units Heparin Sodium (Porcine) (Heparin) 2,000 units IVP TTS [facility] Stop: 06/15/17 10:01 Last Admin: 06/03/17 10:21 Dose: 2,000 units Hydromorphone HCl (Dilaudid) 1 mg IVP Q4H PRN PRN Reason: Pain, severe (8-10) Last Admin: 06/04/17 04:56 Dose: 1 mg Vancomycin/Sodium Chloride (Vancocin) 1 gm in 200 mls @ 133 mls/hr IVPB TTS [facility] Stop: 06/08/17 15:01 Last Admin: 06/03/17 16:58 Dose: 133 mls/hr Aztreonam 2 gm/ Sodium (Chloride) 100 mls @ 200 mls/hr IVPB Q24H [facility] Last Admin: 06/03/17 14:48 Dose: 200 mls/hr Clindamycin Phosphate (Cleocin) 600 mg in 50 mls @ 102 mls/hr IVPB Q8H [facility] Last Admin: 06/04/17 01:44 Dose: 102 mls/hr Nystatin (Nystop Topical Powder) 1 applic TOP BID [facility] Last Admin: 06/04/17 09:30 Dose: 1 applic Ondansetron HCl (Zofran Inj) 4 mg IVP Q6H PRN PRN Reason: Nausea/Vomiting Psyllium Hydrophilic Mucilloid (Hydrocil Instant) 1 pkt PO DAILY [facility] Last Admin: 06/04/17 09:29 Dose: 1 pkt Saccharomyces Boulardii (Florastor) 250 mg PO DAILY [facility] Last Admin: 06/04/17 09:29 Dose: 250 mg Tramadol HCl (Ultram) 50 mg PO TID PRN PRN Reason: Pain, moderate (4-7) - Labs Labs: 06/04/17 08:13 06/04/17 08:13 Assessment and Plan (1) Cellulitis of right lower leg Assessment & Plan: Improving 06/01: wbc 27.3----> 21.9 (06/02/17); improving, Band 14%, procalcitonin 29.33; meets SIRS criteria * 06/03/17, WBC: 14.4 with neutrophil band of 1% * 06/04/17, WBC: 12.2 with neutrophil band of 7% * 06/01: blood Cx neg x2 ID consult, Dr Boucher, recs appreciated * Afebrile, no leukocytosis, bandemia and left shift noted on CBC * Vancomycin 1gm IVP Q12H given in ED * discontinued as pt is ESRD. 06/01: restarted, given only on HD days. * continue clindamycin 3 more days of iv antibiotics and 3 times Vancomycin on dialysis Aztreaonam 2gm IVPB q24 Clindamycin 600mg IVPB q8 * Tramadol 50mg PO q8 PRN for moderate pain * Dilaudid 1mg IV q4 PRN for severe pain * 06/03/17: Nystatin topical cream BID for skin fold rashes * Pending Duplex scan: limited study due to patient's habitus * PT/OT Evaluation Status: Acute (2) Elevated WBC count Assessment & Plan: Improving ID consult---> Dr. Escobedo on board 06/01: wbc 27.3----> 21.9 (06/02/17); improving, Band 14-----> 12 (06/02/17) 06/03/17, WBC: 14.4 with neutrophil band of 1% 06/04/17, WBC: 12.2 with neutrophil band of 7% * Aztreaonam 2gm IVPB q24 * Clindamycin 600mg IVPB q8 * Vancomycin 1gm on dialysis Status: Acute (3) ESRD on hemodialysis Assessment & Plan: Stable with dialysis BUN 59, Cr 3.9 ---06/01/17 BUN 50, Cr 3.5----> 06/02/17 * Renal diet * Liberalized diet to regular diet as pt was non-compliant with renal diet * Dialysis on Wednesday, , and Wednesday * Nephro consulted- Dr. Mota help appreciated * 05/29: Dr Mota recs IV abx; offered pt extra HD today, pt refused due to discomfort Status: Chronic (4) Lymphedema Assessment & Plan: Bilateral Lower Extremities Hemodialysis on Wednesday, and Wednesday06/03/17: Lasix 80mg IV daily on non-dialysis as discussed with tool rental technician (Dr. Mota) Status: Chronic (5) History of asthma Assessment & Plan: controlled Duoneb 3ml INH RQ6 PRN Status: Chronic (6) Prophylactic measure Assessment & Plan: GI PPX: Pepcid 20mg PO daily * DVT PPX: Heparin SC Q8H, SCDs contraindicated due to intolerance/infection and chronic lymphedema * Ambulate with assistance * PT/OT Disposition: Patient will be discharge tomorrow to subacute rehab (06/05/17) Status: Acute <Yuriy Jiang M - Last Filed: 06/05/17 16:19> Objective - Vital Signs/Intake and Output Vital Signs (last 24 hours): Temp Pulse Resp BP Pulse Ox 97.6 F 76 20 122/79 97 06/05/17 13:00 06/05/17 13:00 06/05/17 13:00 06/05/17 13:00 06/05/17 13:00 Intake and Output: 06/05/17 06/05/17 06:59 18:59 Intake Total 500 Output Total 400 Balance 100 - Medications Medications: Current Medications Albuterol/Ipratropium (Duoneb 3 Mg/0.5 Mg (3 Ml) Ud) 3 ml INH RQ6 PRN PRN Reason: Shortness of Breath Docusate Sodium (Colace) 100 mg PO BID PRN PRN Reason: Constipation Last Admin: 06/04/17 09:29 Dose: 100 mg Epoetin [place]ura (Procrit) 10,000 unit IV TTS [facility] Last Admin: 06/05/17 11:43 Dose: 10,000 unit Famotidine (Pepcid) 20 mg PO DAILY [facility] Last Admin: 06/05/17 14:05 Dose: 20 mg Furosemide (Lasix) 80 mg IVP DAILY [facility] Last Admin: 06/05/17 10:00 Dose: Not Given Heparin Sodium (Porcine) (Heparin) 5,000 units SC Q8 [facility] Last Admin: 06/05/17 14:04 Dose: 5,000 units Heparin Sodium (Porcine) (Heparin) 2,000 units IVP TTS [facility] Stop: 06/15/17 10:01 Last Admin: 06/05/17 11:44 Dose: 2,000 units Hydromorphone HCl (Dilaudid) 1 mg IVP Q4H PRN PRN Reason: Pain, severe (8-10) Last Admin: 06/05/17 02:56 Dose: 1 mg Vancomycin/Sodium Chloride (Vancocin) 1 gm in 200 mls @ 133 mls/hr IVPB TTS [facility] Stop: 06/08/17 15:01 Last Admin: 06/05/17 14:03 Dose: 133 mls/hr Aztreonam 2 gm/ Sodium (Chloride) 100 mls @ 200 mls/hr IVPB Q24H [facility] Last Admin: 06/04/17 13:00 Dose: 200 mls/hr Clindamycin Phosphate (Cleocin) 600 mg in 50 mls @ 102 mls/hr IVPB Q8H [facility] Last Admin: 06/05/17 10:00 Dose: Not Given Nystatin (Nystop Topical Powder) 1 applic TOP BID [facility] Last Admin: 06/05/17 14:02 Dose: 1 applic Ondansetron HCl (Zofran Inj) 4 mg IVP Q6H PRN PRN Reason: Nausea/Vomiting Psyllium Hydrophilic Mucilloid (Hydrocil Instant) 1 pkt PO DAILY [facility] Last Admin: 06/05/17 14:04 Dose: 1 pkt Saccharomyces Boulardii (Florastor) 250 mg PO DAILY [facility] Last Admin: 06/05/17 14:05 Dose: 250 mg Tramadol HCl (Ultram) 50 mg PO TID PRN PRN Reason: Pain, moderate (4-7) Last Admin: 06/05/17 00:48 Dose: 50 mg - Labs Labs: 06/05/17 06:33 06/05/17 06:33 Attending/Attestation - Attestation I have personally seen and examined this patient.: Yes I have fully participated in the care of the patient.: Yes I have reviewed all pertinent clinical information, including history, physical exam and plan: Yes Notes (Text): 06/05/17 16:19 Patient was seen and examined at bedside with the resident Continue antibiotic management for cellulitis Continue hemodialysis as per schedule Discharge planning to subacute rehabilitation center.
[2017-06-04 10:05] LABS: BANDS 7 % (0-2); EOSINOPHIL 4 % (0-4); LYMPHOCYTE 9 % (20-40); METAMYELOCYTE 1 % (0-0); MYELOCYTE 2 % (0-0); NEUTROPHIL 64 % (50-75); PLATELET ESTIMATE NORMAL (NORMAL)
[2017-06-04 10:06] LABS: ANISOCYTOSIS SLIGHT; TOXIC GRANULATION PRESENT
[2017-06-04] MEDS: Aztreonam 2 GM in Sodium Chloride 0.9% 100 ML IVPB SCH (13:00)
--- NOTE | 2017-06-04 15:04 | CP.PCM.PN ---
Subjective - Date & Time of Evaluation Date of Evaluation: 06/04/17 Time of Evaluation: 15:02 - Subjective Subjective: Alert; feels better Stable dialysis 7/6 Hg improved-= ESAs restarted Remains on IV ABs- might continue treatment at rehab Objective - Vital Signs/Intake and Output Vital Signs (last 24 hours): Temp Pulse Resp BP Pulse Ox 98.4 F 78 20 128/70 94 L 06/04/17 07:00 06/04/17 07:00 06/04/17 07:00 06/04/17 09:33 06/04/17 07:00 Intake and Output: 06/04/17 06/04/17 06:59 18:59 Output Total 500 Balance -500 - Medications Medications: Current Medications Albuterol/Ipratropium (Duoneb 3 Mg/0.5 Mg (3 Ml) Ud) 3 ml INH RQ6 PRN PRN Reason: Shortness of Breath Docusate Sodium (Colace) 100 mg PO BID PRN PRN Reason: Constipation Last Admin: 06/04/17 09:29 Dose: 100 mg Epoetin [place] (Procrit) 10,000 unit IV TTS [facility] Last Admin: 06/03/17 11:33 Dose: 10,000 unit Famotidine (Pepcid) 20 mg PO DAILY [facility] Last Admin: 06/04/17 09:29 Dose: 20 mg Furosemide (Lasix) 80 mg IVP DAILY [facility] Last Admin: 06/04/17 09:33 Dose: 80 mg Heparin Sodium (Porcine) (Heparin) 5,000 units SC Q8 [facility] Last Admin: 06/04/17 14:26 Dose: 5,000 units Heparin Sodium (Porcine) (Heparin) 2,000 units IVP TTS [facility] Stop: 06/15/17 10:01 Last Admin: 06/03/17 10:21 Dose: 2,000 units Hydromorphone HCl (Dilaudid) 1 mg IVP Q4H PRN PRN Reason: Pain, severe (8-10) Last Admin: 06/04/17 10:01 Dose: 1 mg Vancomycin/Sodium Chloride (Vancocin) 1 gm in 200 mls @ 133 mls/hr IVPB TTS [facility] Stop: 06/08/17 15:01 Last Admin: 06/03/17 16:58 Dose: 133 mls/hr Aztreonam 2 gm/ Sodium (Chloride) 100 mls @ 200 mls/hr IVPB Q24H [facility] Last Admin: 06/04/17 13:00 Dose: 200 mls/hr Clindamycin Phosphate (Cleocin) 600 mg in 50 mls @ 102 mls/hr IVPB Q8H [facility] Last Admin: 06/04/17 10:00 Dose: 102 mls/hr Nystatin (Nystop Topical Powder) 1 applic TOP BID [facility] Last Admin: 06/04/17 09:30 Dose: 1 applic Ondansetron HCl (Zofran Inj) 4 mg IVP Q6H PRN PRN Reason: Nausea/Vomiting Psyllium Hydrophilic Mucilloid (Hydrocil Instant) 1 pkt PO DAILY [facility] Last Admin: 06/04/17 09:29 Dose: 1 pkt Saccharomyces Boulardii (Florastor) 250 mg PO DAILY [facility] Last Admin: 06/04/17 09:29 Dose: 250 mg Tramadol HCl (Ultram) 50 mg PO TID PRN PRN Reason: Pain, moderate (4-7) - Labs Labs: 06/04/17 08:13 06/04/17 08:13 - Constitutional Appears: No Acute Distress, Chronically Ill - Head Exam Head Exam: ATRAUMATIC, NORMAL INSPECTION - Eye Exam Eye Exam: EOMI, Normal appearance - Neck Exam Neck Exam: Normal Inspection. absent: Tenderness - Respiratory Exam Respiratory Exam: Clear to Ausculation Bilateral, NORMAL BREATHING PATTERN - GI/Abdominal Exam GI & Abdominal Exam: Soft. absent: Tenderness - Extremities Exam Extremities Exam: Pedal Edema, Tenderness - Neurological Exam Neurological Exam: Alert, CN II-XII Intact - Skin Skin Exam: Dry, Warm Assessment and Plan (1) ESRD (end stage renal disease) Status: Acute (2) Hypertensive chronic kidney disease with stage 5 chronic kidney disease or end stage renal disease Status: Acute (3) Cellulitis Status: Acute (4) Lymphedema of lower extremity Status: Chronic - Assessment and Plan (Free Text) Plan: Same dialysis TTS IV ABs Wound care Monitor chemistries Continue ESAs
[2017-06-05] MEDS: Clindamycin 600mg/50ml D5W 600 MG/50 ML VIAL IVPB SCH ×2 (02:32→10:00)
[2017-06-05] MEDS: HYDROmorphone 1 mg/ml ISec IVP PRN (02:56)
[2017-06-05 06:50] LABS: BASO % 0.4 % (0.0-2.0); EOS # 0.7 K/uL (0.0-0.7); EOS % 5.9 % (0.0-4.0); HEMOGLOBIN 10.1 g/dL (12.0-18.0); LYMPH # 1.1 K/uL (1.0-4.3); LYMPH % 9.6 % (20.0-40.0); MEAN CELL VOLUME 77.1 fL (80.0-94.0); MEAN CORPUSCULAR HEMOGLOBIN 24.7 pg (27.0-31.0); MEAN CORPUSCULAR HGB CONC 32.1 g/dL (33.0-37.0); MEAN PLATELET VOLUME 7.7 fL (7.2-11.7); MONO # 1.2 K/uL (0.0-0.8); MONO % 10.1 % (0.0-10.0); NEUT # 8.5 K/uL (1.8-7.0); PLATELET COUNT 281 K/uL (130-400); RBC 4.08 Mil/uL (4.40-5.90); RED CELL DISTRIBUTION WIDTH 17.4 % (11.5-14.5); WHITE BLOOD COUNT 11.5 K/uL (4.8-10.8)
[2017-06-05 07:04] LABS: ALBUMIN 3.5 g/dL (3.5-5.0)
[2017-06-05 07:07] LABS: ALB/GLOB RATIO 0.8 (1.0-2.1); CALCIUM 9.5 mg/dl (8.6-10.4); MAGNESIUM 1.9 mg/dL (1.6-2.3)
[2017-06-05 08:34] LABS: ANISOCYTOSIS SLIGHT; EOSINOPHIL 6 % (0-4); LYMPHOCYTE 10 % (20-40); MONOCYTE 10 % (0-10); NEUTROPHIL 74 % (50-75); PLATELET ESTIMATE NORMAL (NORMAL); TOTAL CELLS COUNTED 100
[2017-06-05 08:35] LABS: HYPOCHROMIC SLIGHT; OVALOCYTES SLIGHT
[2017-06-05 08:36] LABS: MICROCYTOSIS SLIGHT; POLYCHROMIC SLIGHT; TEARDROP CELLS SLIGHT
--- NOTE | 2017-06-05 09:55 | CP.PCM.PN ---
Subjective - Date & Time of Evaluation Date of Evaluation: 06/05/17 Time of Evaluation: 09:52 - Subjective Subjective: pt seen and examined at present in dialysis UF goal 4 L no CP or SOB no pain Afebrile ROS- 10 point ROS negative Objective - Vital Signs/Intake and Output Vital Signs (last 24 hours): Temp Pulse Resp BP Pulse Ox 98 F 63 20 138/82 97 06/05/17 08:00 06/05/17 08:00 06/05/17 08:00 06/05/17 08:00 06/05/17 08:00 Intake and Output: 06/05/17 06/05/17 06:59 18:59 Intake Total 500 Output Total 400 Balance 100 - Medications Medications: Current Medications Albuterol/Ipratropium (Duoneb 3 Mg/0.5 Mg (3 Ml) Ud) 3 ml INH RQ6 PRN PRN Reason: Shortness of Breath Docusate Sodium (Colace) 100 mg PO BID PRN PRN Reason: Constipation Last Admin: 06/04/17 09:29 Dose: 100 mg Epoetin [place]ura (Procrit) 10,000 unit IV TTS [facility] Last Admin: 06/03/17 11:33 Dose: 10,000 unit Famotidine (Pepcid) 20 mg PO DAILY [facility] Last Admin: 06/04/17 09:29 Dose: 20 mg Furosemide (Lasix) 80 mg IVP DAILY [facility] Last Admin: 06/04/17 09:33 Dose: 80 mg Heparin Sodium (Porcine) (Heparin) 5,000 units SC Q8 [facility] Last Admin: 06/05/17 06:27 Dose: 5,000 units Heparin Sodium (Porcine) (Heparin) 2,000 units IVP TTS [facility] Stop: 06/15/17 10:01 Last Admin: 06/03/17 10:21 Dose: 2,000 units Hydromorphone HCl (Dilaudid) 1 mg IVP Q4H PRN PRN Reason: Pain, severe (8-10) Last Admin: 06/05/17 02:56 Dose: 1 mg Vancomycin/Sodium Chloride (Vancocin) 1 gm in 200 mls @ 133 mls/hr IVPB TTS [facility] Stop: 06/08/17 15:01 Last Admin: 06/03/17 16:58 Dose: 133 mls/hr Aztreonam 2 gm/ Sodium (Chloride) 100 mls @ 200 mls/hr IVPB Q24H [facility] Last Admin: 06/04/17 13:00 Dose: 200 mls/hr Clindamycin Phosphate (Cleocin) 600 mg in 50 mls @ 102 mls/hr IVPB Q8H [facility] Last Admin: 06/05/17 02:32 Dose: 102 mls/hr Nystatin (Nystop Topical Powder) 1 applic TOP BID [facility] Last Admin: 06/04/17 18:16 Dose: 1 applic Ondansetron HCl (Zofran Inj) 4 mg IVP Q6H PRN PRN Reason: Nausea/Vomiting Psyllium Hydrophilic Mucilloid (Hydrocil Instant) 1 pkt PO DAILY [facility] Last Admin: 06/04/17 09:29 Dose: 1 pkt Saccharomyces Boulardii (Florastor) 250 mg PO DAILY [facility] Last Admin: 06/04/17 09:29 Dose: 250 mg Tramadol HCl (Ultram) 50 mg PO TID PRN PRN Reason: Pain, moderate (4-7) Last Admin: 06/05/17 00:48 Dose: 50 mg - Labs Labs: 06/05/17 06:33 06/05/17 06:33 - Constitutional Appears: Well, Non-toxic - Head Exam Head Exam: ATRAUMATIC, NORMOCEPHALIC - Eye Exam Eye Exam: EOMI, PERRL - ENT Exam ENT Exam: Mucous Membranes Moist - Neck Exam Neck Exam: Full ROM - Respiratory Exam Respiratory Exam: Clear to Ausculation Bilateral. absent: Rhonchi, Wheezes - Cardiovascular Exam Cardiovascular Exam: REGULAR RHYTHM, +S1, +S2 - GI/Abdominal Exam GI & Abdominal Exam: Soft. absent: Tenderness - Extremities Exam Additional comments: lymphedema, cellulitis right thigh - Neurological Exam Neurological Exam: Alert, Awake, Oriented x3 - Psychiatric Exam Psychiatric exam: Normal Affect, Normal Mood - Skin Skin Exam: Dry, Warm Assessment and Plan (1) Cellulitis of right lower leg Status: Acute (2) ESRD (end stage renal disease) Status: Acute (3) Peripheral edema Status: Acute (4) Chronic lymphadenitis Status: Acute (5) Hypertension Status: Acute - Assessment and Plan (Free Text) Plan: maintian HD TTS HD today fluid restriction Abx for cellulitis
[2017-06-05] MEDS: Saccharomyces Boulardi 250 mg Cap PO SCH ×2 (10:00→14:05)
[2017-06-05] MEDS: Vancomycin 1 gm/NS 200 ml 1 GM/200 ML BAG IVPB SCH ×2 (10:00→14:03)
[2017-06-05] MEDS: Psyllium Packet PO SCH ×2 (10:00→14:04)
[2017-06-05] MEDS: Epoetin Alfa 10,000 unit/ml Dialysis IV SCH (11:43)
--- NOTE | 2017-06-05 15:45 | CP.PCM.DIS ---
<WesOsbaldo - Last Filed: 06/05/17 15:35> Provider - Provider Date of Admission: 06/02/17 09:46 Attending physician: Dr. Yuriy Jiang MD Primary care physician: Ivet Alegre MD Consults: ID- Dr. Boucher Nephro- Dr. Mota Time Spent in preparation of Discharge (in minutes): 45 Diagnosis - Discharge Diagnosis (1) Cellulitis Status: Acute Comment: Discontinue Aztrenam 2gm Q24h. Continue Clindamycin 600mg Q8h for 2 more days. Continue Vancomycin 1gm TTHS with dialysis for 3 more doses. WBC trending down- 11.5 today (2) ESRD (end stage renal disease) Status: Acute Hospital Course - Lab Results Lab Results: Most Recent Lab Values WBC 11.5 K/uL (4.8-10.8) H 06/05/17 06:33 RBC 4.08 Mil/uL (4.40-5.90) L 06/05/17 06:33 Hgb 10.1 g/dL (12.0-18.0) L 06/05/17 06:33 Hct 31.4 % (35.0-51.0) L 06/05/17 06:33 MCV 77.1 fL (80.0-94.0) L 06/05/17 06:33 MCH 24.7 pg (27.0-31.0) L 06/05/17 06:33 MCHC 32.1 g/dL (33.0-37.0) L 06/05/17 06:33 RDW 17.4 % (11.5-14.5) H 06/05/17 06:33 Plt Count 281 K/uL (130-400) 06/05/17 06:33 MPV 7.7 fL (7.2-11.7) 06/05/17 06:33 Neut % (Auto) 74.0 % (50.0-75.0) 06/05/17 06:33 Lymph % (Auto) 9.6 % (20.0-40.0) L 06/05/17 06:33 [place] % (Auto) 10.1 % (0.0-10.0) H 06/05/17 06:33 Eos % (Auto) 5.9 % (0.0-4.0) H 06/05/17 06:33 Baso % (Auto) 0.4 % (0.0-2.0) 06/05/17 06:33 Neut # 8.5 K/uL (1.8-7.0) H 06/05/17 06:33 Lymph # 1.1 K/uL (1.0-4.3) 06/05/17 06:33 [place] # 1.2 K/uL (0.0-0.8) H 06/05/17 06:33 Eos # 0.7 K/uL (0.0-0.7) 06/05/17 06:33 Baso # 0.0 K/uL (0.0-0.2) 06/05/17 06:33 Neutrophils % (Manual) 74 % (50-75) 06/05/17 06:33 Band Neutrophils % 7 % (0-2) H 06/04/17 08:13 Lymphocytes % (Manual) 10 % (20-40) L 06/05/17 06:33 Monocytes % (Manual) 10 % (0-10) 06/05/17 06:33 Eosinophils % (Manual) 6 % (0-4) H 06/05/17 06:33 Metamyelocytes % 1 % (0-0) H 06/04/17 08:13 Myelocytes % 2 % (0-0) H 06/04/17 08:13 Toxic Granulation Present 06/04/17 08:13 Platelet Estimate Normal (NORMAL) 06/05/17 06:33 Large Platelets Present 06/03/17 07:12 Polychromasia Slight 06/05/17 06:33 Hypochromasia (manual) Slight 06/05/17 06:33 Poikilocytosis (manual Slight 06/03/17 07:12 Anisocytosis (manual) Slight 06/05/17 06:33 Microcytosis (manual) Slight 06/05/17 06:33 Macrocytosis (manual) Slight 06/05/17 06:33 Target Cells Slight 06/03/17 07:12 Tear Drop Cells Slight 06/05/17 06:33 Ovalocytes Slight 06/05/17 06:33 Sodium 137 mmol/L (132-148) 06/05/17 06:33 Potassium 4.1 mmol/L (3.6-5.2) 06/05/17 06:33 Chloride 94 mmol/L (98-107) L 06/05/17 06:33 Carbon Dioxide 33 mmol/L (22-30) H 06/05/17 06:33 Anion Gap 14 (10-20) 06/05/17 06:33 BUN 58 mg/dL (9-20) H 06/05/17 06:33 Creatinine 2.9 MG/DL (0.8-1.5) H 06/05/17 06:33 Est GFR ( Amer) 28 06/05/17 06:33 Est GFR (Non-Af Amer) 23 06/05/17 06:33 POC Glucose (mg/dL) 188 mg/dL (65-110) H 06/03/17 21:07 Random Glucose 124 mg/dL (75-110) H 06/05/17 06:33 Calcium 9.5 mg/dl (8.6-10.4) 06/05/17 06:33 Phosphorus 5.7 mg/dL (2.5-4.5) H 06/05/17 06:33 Magnesium 1.9 mg/dL (1.6-2.3) 06/05/17 06:33 Total Bilirubin 0.6 mg/dL (0.2-1.3) 06/05/17 06:33 AST 22 U/L (17-59) 06/05/17 06:33 ALT 14 U/L (21-72) L D 06/05/17 06:33 Alkaline Phosphatase 119 U/L (38-126) 06/05/17 06:33 Total Protein 7.9 g/dL (6.3-8.3) 06/05/17 06:33 Albumin 3.5 g/dL (3.5-5.0) 06/05/17 06:33 Globulin 4.4 gm/dL (2.2-3.9) H 06/05/17 06:33 Albumin/Globulin Ratio 0.8 (1.0-2.1) L 06/05/17 06:33 Procalcitonin 29.33 NG/ML (0.19-0.49) H 05/31/17 11:53 - Hospital Course Hospital Course: As per admission documentation: HPI: 51 yo male with significant PMHx of ESRD and chronic lymph edema presents to the ED with right leg pain. Patient reports he was hospitalized January 2017 where he developed sepsis secondary to cellulitis. He started to develop right leg pain 2 weeks ago, he saw Dr. Alegre and was prescribed Keflex x 14 days, which the patient completed a course of. The patient started to have right leg pain that returned Wednesday into Wednesday morning. The patient does not take anything for pain. The patient came to the ED because he started to develop a burning sensation in his legs, and immense pain during ambulation. Denied fever , chills, chest pain, SOB, abdominal pain, n/v/d/c/, drainage or weeping from lower extremities, numbness, tingling, or urinary symptoms. Patient was admitted for treatment of right lower extremity cellulitis . WBC was elevated at 27.3 Patient was evaluated by ID, Dr. Boucher. Patient's LE dopplers were negative. Patient received hemodialysis as normally scheduled TTHS. Patient underwent 5 days of IV antiobiotics, including Aztreonam 2gm Q24h , Cleocin 600mg Q8h and Vancomycin 1gm TTHS. Patient was discharged to [facility] to undergo 2 additional days of cleocin and 3 doses of Vancomycin (on dialysis days ). Discharge Exam - Head Exam Head Exam: ATRAUMATIC, NORMOCEPHALIC - Eye Exam Eye Exam: EOMI, Normal appearance Pupil Exam: NORMAL ACCOMODATION, PERRL - ENT Exam ENT Exam: Mucous Membranes Moist - Respiratory Exam Respiratory Exam: Clear to PA & Lateral, NORMAL BREATHING PATTERN, UNREMARKABLE. absent: Rales, Rhonchi, Wheezes - Cardiovascular Exam Cardiovascular Exam: REGULAR RHYTHM, +S1, +S2 - GI/Abdominal Exam GI & Abdominal Exam: Normal Bowel Sounds, Soft, Unremarkable. absent: Distended , Firm, Guarding, Tenderness - Extremities Exam Extremities exam: normal capillary refill Additional comments: severe bilateral lower extremity edema/ lymphedema - Neurological Exam Neurological exam: Alert, CN II-XII Intact, Oriented x3 - Psychiatric Exam Psychiatric exam: Normal Affect, Normal Mood Discharge Plan - Discharge Medications Prescriptions: Clindamycin [Cleocin] 600 mg IVPB Q8H #3 vial Vancomycin 1gm in NS 250ml [Vancomycin 1gm] 1 gm IVPB TTS #3 bag - Follow Up Plan Condition: GOOD Disposition: REHAB FACILITY/REHAB UNIT Instructions: Cellulitis (DC), Cellulitis (GEN), Renal Failure Diet (DC), Chronic Hypertension (DC), Chronic Hypertension (GEN), Obesity (DC) Additional Instructions: Please discharge patient to subacute rehab Please continue the following medication as prescribed at subacute rehab; 1. Clindamycin 600mg in 50mls @ 102 mls/hr IVPB Q8H for 3 more days (Complete dose on June 07) 2. Vancomycin 1gm in 200mls @ 133mls/hr IVPB Wednesday, , Wednesday JOSSIE on dialysis days for 3 more days (Complete dose on June 12) Please resume all home medications as prescribed Please follow up with your primary care physician within one week Please follow up with your preferred medical payment poster or Dr. mota within one week Please return to the hospital if symptoms resume Patient is to be discharged with saline lock in place Referrals: Ivet Alegre MD [Primary Care Provider] - <Yuriy Jiang - Last Filed: 06/05/17 18:16> Provider - Provider Date of Admission: 06/02/17 09:46 Attending physician: Lv Dykes MD Primary care physician: Ivet Alegre MD Hospital Course - Lab Results Lab Results: Most Recent Lab Values WBC 11.5 K/uL (4.8-10.8) H 06/05/17 06:33 RBC 4.08 Mil/uL (4.40-5.90) L 06/05/17 06:33 Hgb 10.1 g/dL (12.0-18.0) L 06/05/17 06:33 Hct 31.4 % (35.0-51.0) L 06/05/17 06:33 MCV 77.1 fL (80.0-94.0) L 06/05/17 06:33 MCH 24.7 pg (27.0-31.0) L 06/05/17 06:33 MCHC 32.1 g/dL (33.0-37.0) L 06/05/17 06:33 RDW 17.4 % (11.5-14.5) H 06/05/17 06:33 Plt Count 281 K/uL (130-400) 06/05/17 06:33 MPV 7.7 fL (7.2-11.7) 06/05/17 06:33 Neut % (Auto) 74.0 % (50.0-75.0) 06/05/17 06:33 Lymph % (Auto) 9.6 % (20.0-40.0) L 06/05/17 06:33 [place] % (Auto) 10.1 % (0.0-10.0) H 06/05/17 06:33 Eos % (Auto) 5.9 % (0.0-4.0) H 06/05/17 06:33 Baso % (Auto) 0.4 % (0.0-2.0) 06/05/17 06:33 Neut # 8.5 K/uL (1.8-7.0) H 06/05/17 06:33 Lymph # 1.1 K/uL (1.0-4.3) 06/05/17 06:33 [place] # 1.2 K/uL (0.0-0.8) H 06/05/17 06:33 Eos # 0.7 K/uL (0.0-0.7) 06/05/17 06:33 Baso # 0.0 K/uL (0.0-0.2) 06/05/17 06:33 Neutrophils % (Manual) 74 % (50-75) 06/05/17 06:33 Band Neutrophils % 7 % (0-2) H 06/04/17 08:13 Lymphocytes % (Manual) 10 % (20-40) L 06/05/17 06:33 Monocytes % (Manual) 10 % (0-10) 06/05/17 06:33 Eosinophils % (Manual) 6 % (0-4) H 06/05/17 06:33 Metamyelocytes % 1 % (0-0) H 06/04/17 08:13 Myelocytes % 2 % (0-0) H 06/04/17 08:13 Toxic Granulation Present 06/04/17 08:13 Platelet Estimate Normal (NORMAL) 06/05/17 06:33 Large Platelets Present 06/03/17 07:12 Polychromasia Slight 06/05/17 06:33 Hypochromasia (manual) Slight 06/05/17 06:33 Poikilocytosis (manual Slight 06/03/17 07:12 Anisocytosis (manual) Slight 06/05/17 06:33 Microcytosis (manual) Slight 06/05/17 06:33 Macrocytosis (manual) Slight 06/05/17 06:33 Target Cells Slight 06/03/17 07:12 Tear Drop Cells Slight 06/05/17 06:33 Ovalocytes Slight 06/05/17 06:33 Sodium 137 mmol/L (132-148) 06/05/17 06:33 Potassium 4.1 mmol/L (3.6-5.2) 06/05/17 06:33 Chloride 94 mmol/L (98-107) L 06/05/17 06:33 Carbon Dioxide 33 mmol/L (22-30) H 06/05/17 06:33 Anion Gap 14 (10-20) 06/05/17 06:33 BUN 58 mg/dL (9-20) H 06/05/17 06:33 Creatinine 2.9 MG/DL (0.8-1.5) H 06/05/17 06:33 Est GFR ( Amer) 28 06/05/17 06:33 Est GFR (Non-Af Amer) 23 06/05/17 06:33 POC Glucose (mg/dL) 188 mg/dL (65-110) H 06/03/17 21:07 Random Glucose 124 mg/dL (75-110) H 06/05/17 06:33 Calcium 9.5 mg/dl (8.6-10.4) 06/05/17 06:33 Phosphorus 5.7 mg/dL (2.5-4.5) H 06/05/17 06:33 Magnesium 1.9 mg/dL (1.6-2.3) 06/05/17 06:33 Total Bilirubin 0.6 mg/dL (0.2-1.3) 06/05/17 06:33 AST 22 U/L (17-59) 06/05/17 06:33 ALT 14 U/L (21-72) L D 06/05/17 06:33 Alkaline Phosphatase 119 U/L (38-126) 06/05/17 06:33 Total Protein 7.9 g/dL (6.3-8.3) 06/05/17 06:33 Albumin 3.5 g/dL (3.5-5.0) 06/05/17 06:33 Globulin 4.4 gm/dL (2.2-3.9) H 06/05/17 06:33 Albumin/Globulin Ratio 0.8 (1.0-2.1) L 06/05/17 06:33 Procalcitonin 29.33 NG/ML (0.19-0.49) H 05/31/17 11:53 Attending/Attestation - Attestation I have personally seen and examined this patient.: Yes I have fully participated in the care of the patient.: Yes I have reviewed all pertinent clinical information, including history, physical exam and plan: Yes Notes (Text): 06/05/17 18:15 Patient was seen and examined at bedside. He is status post hemodialysis today Patient's right leg Swelling has improved and the erythema and tenderness is also improved Patient to be transferred to rehabilitation center today for completion of IV antibiotics Patient also continue physical therapy at the rehabilitation center Discussed the discharge plan with the patient and he verbalized understanding I agree with the discharge note by the resident
[2017-06-05 16:46] VITALS: BP 126/81; PULSE 89; RESP 22; TEMP 98.3; O2SAT 95
== END 2017-06-05 18:48 | DRG 602 ==
LOC: C.ER 02:50 → SUPCPDRO 02:50 → C.9E 05:13 → C.6T 05:36 → OBSVTOIN 06-02 09:46
PROVIDERS: ADMIT Internal Medicine; ATTEND Internal Medicine
PROC: 5A1D60Z (ICD-10-PCS; principal; 2017-06-03)
DX: L03.115 Cellulitis of right lower limb (principal); N18.6 End stage renal disease; I12.0 Hypertensive chronic kidney disease with stage 5 chronic kidney disease or end stage renal disease; E11.22 Type 2 diabetes mellitus with diabetic chronic kidney disease; D64.9 Anemia, unspecified; E66.01 Morbid (severe) obesity due to excess calories; I88.1 Chronic lymphadenitis, except mesenteric; I89.0 Lymphedema, not elsewhere classified; J44.9 Chronic obstructive pulmonary disease, unspecified; K21.9 Gastro-esophageal reflux disease without esophagitis; K59.00 Constipation, unspecified; Z87.891 Personal history of nicotine dependence; Z99.2 Dependence on renal dialysis; Z88.0 Allergy status to penicillin

== ENCOUNTER 2017-07-12 20:52 | Inpatient (IN) | payer MEDICARE, MEDICAID ==
[2017-07-12 20:53] VITALS: BMI 46.8
--- NOTE | 2017-07-12 22:21 | C.PDOC ---
History Of Present Illness 51 year old male who presents to the ER for a complaint of edema, redness, and pain to the right lower extremity. Patient is in ESRD; denies chest pain SOB, headache, dizziness, fever, or chills. Chief Complaint (Nursing): Lower Extremity Problem/Injury History Per: Patient History/Exam Limitations: no limitations Onset/Duration Of Symptoms: Days Current Symptoms Are (Timing): Still Present Recent travel outside of the [place]: No Past Medical History Reviewed: Historical Data, Nursing Documentation, Vital Signs Vital Signs: Last Vital Signs Temp 97.9 F 07/12/17 21:05 Pulse 97 H 07/13/17 03:11 Resp 19 07/13/17 03:11 BP 109/46 L 07/13/17 03:11 Pulse Ox 97 07/13/17 03:11 - Medical History PMH: Anemia, Bronchitis, COPD, Diabetes, HTN, Peripheral Edema, End Stage Renal Disease, Chronic Kidney Disease, Chronic Pain - [facility] Procedures DIALYSIS ARTERIOVENOSTOM (05/07/14) DILATION OF LEFT BRACHIAL VEIN, PERCUTANEOUS APPROACH (08/04/16) DRESSING OF WOUND NEC (05/29/14) EXTIRPATION OF MATTER FROM L BRACH ART, PERC APPROACH (08/04/16) EXTIRPATION OF MATTER FROM LEFT BRACHIAL VEIN, PERC APPROACH (08/04/16) HEMODIALYSIS (05/29/14) OTHER FASCIECTOMY (05/29/14) PACKED CELL TRANSFUSION (05/29/14) PERCUTAN NEEDLE BIOPSY OF KIDNEY (01/30/14) PERFORMANCE OF URINARY FILTRATION, MULTIPLE (06/02/17) VENOUS CATHETERIZATION FOR RENAL DIALYSIS (01/18/14) VENOUS CATHETERIZATION NEC (09/22/13) Family History: States: Unknown Family Hx - Social History Hx Tobacco Use: No Hx Alcohol Use: No Hx Substance Use: No - Immunization History Hx Tetanus Toxoid Vaccination: No Hx Influenza Vaccination: No Hx Pneumococcal Vaccination: No Review Of Systems Constitutional: Negative for: Fever, Chills Cardiovascular: Negative for: Chest Pain, Palpitations Respiratory: Negative for: Shortness of Breath Gastrointestinal: Negative for: Nausea, Vomiting, Diarrhea Skin: Positive for: Other (Edema) Neurological: Negative for: Weakness, Numbness Physical Exam - Physical Exam Appears: Non-toxic Skin: Warm, Dry Head: Atraumatic, Normacephalic Oral Mucosa: Moist Chest: Symmetrical, No Tenderness Cardiovascular: Rhythm Regular, No Murmur Respiratory: Normal Breath Sounds, No Rales, No Rhonchi, No Wheezing Gastrointestinal/Abdominal: Soft, No Tenderness Extremity: No Deformity, Other (Severe swelling, redness, and congestion to the right thigh) Neurological/Psych: Oriented x3, Normal Speech, Normal Cognition ED Course And Treatment - Laboratory Results Result Diagrams: 07/12/17 22:31 07/12/17 22:31 O2 Sat by Pulse Oximetry: 99 (Room air) Pulse Ox Interpretation: Normal Progress Note: Blood work ordered. Dilaudid administered. Disposition Discussed With Dr.: Ti Quinn Doctor Will See Patient In The: Hospital Counseled Patient/Family Regarding: Diagnosis - Disposition Disposition: HOSPITALIZED Disposition Time: 01:50 Condition: STABLE Forms: [facility] (Burmese) - POA Present On Arrival: None - Clinical Impression Clinical Impression: ESRD (end stage renal disease), Cellulitis of extremity - Scribe Statement The provider has reviewed the documentation as recorded by the Scribgretchen Yanes All medical record entries made by the Lizeth were at my direction and personally dictated by me. I have reviewed the chart and agree that the record accurately reflects my personal performance of the history, physical exam, medical decision making, and the department course for this patient. I have also personally directed, reviewed, and agree with the discharge instructions and disposition.
[2017-07-12 22:34] LABS: BASO % 0.4 % (0.0-2.0); EOS # 0.4 K/uL (0.0-0.7); EOS % 4.1 % (0.0-4.0); HEMATOCRIT 36.2 % (35.0-51.0); LYMPH # 1.6 K/uL (1.0-4.3); MEAN CELL VOLUME 76.8 fL (80.0-94.0); MEAN CORPUSCULAR HEMOGLOBIN 24.9 pg (27.0-31.0); MEAN CORPUSCULAR HGB CONC 32.4 g/dL (33.0-37.0); MEAN PLATELET VOLUME 8.5 fL (7.2-11.7); MONO # 0.3 K/uL (0.0-0.8); MONO % 3.2 % (0.0-10.0); RED CELL DISTRIBUTION WIDTH 17.6 % (11.5-14.5); WHITE BLOOD COUNT 10.3 K/uL (4.8-10.8)
[2017-07-12 22:45] LABS: POTASSIUM 3.9 mmol/L (3.6-5.2)
[2017-07-12 22:47] LABS: ALB/GLOB RATIO 0.9 (1.0-2.1); BILIRUBIN,TOTAL 0.7 mg/dL (0.2-1.3); TOTAL PROTEIN 8.9 g/dL (6.3-8.3)
[2017-07-12 22:48] LABS: CALCIUM 9.9 mg/dl (8.6-10.4)
[2017-07-13] MEDS ORDERED: Clindamycin 300 MG in Sodium Chloride 0.9% 50 ML IVPB STA (02:11)
[2017-07-13] MEDS ORDERED: Nystatin 100,000 Units/gm Topical Pow(15 gm) TOP PRN (03:11)
[2017-07-13] MEDS ORDERED: Albuterol-Ipratrop 3 mg / 0.5 (3 ml) UD INH PRN (03:13)
--- NOTE | 2017-07-13 03:27 | CP.PCM.HP ---
<Nadiya MAYERSJasmin - Last Filed: 07/13/17 03:27> History of Present Illness - History of Present Illness History of Present Illness: CC: My leg feels hot and swollen Patient is a 51 year old male with past medical history ESRD on HD, chronic lymph edema, asthma/ bronchitis who presents to the ED with complaint of right leg swelling and pain. Patient states that he is prone to cellulitis due to his body habitus and that he cannot see the skin on the back of his legs well. Patient states that this past weekend he felt that his right thigh was weeping clear fluid but was not painful. Patient states that earlier on 07/12 he tried to take a nap but woke up at 6PM with pain in his right thigh. Patient states he felt his thigh was firm and warm, like a balloon was inside his leg. Patient states he did not try to see his PMD for this issue and called the ambulance to bring him to the ED. Patient states in the past when he has had this issue the cellulitis quickly worsens. Patient complaining of chills but denies fever. Patient without other complaints at this time. 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 absent: Fever - EENT Eyes: absent: Change in Vision - Cardiovascular Cardiovascular: absent: Chest Pain, Dyspnea - Respiratory Respiratory: absent: Cough - Gastrointestinal Gastrointestinal: absent: Abdominal Pain, Nausea, Vomiting - Genitourinary Genitourinary: absent: Difficulty Urinating - Musculoskeletal Musculoskeletal: absent: Back Pain - Integumentary Integumentary: Swelling - Neurological Neurological: absent: Dizziness, Focal Weakness Past Patient History - Infectious Disease Hx of Infectious Diseases: None - Past Medical History & Family History Past Medical History?: Yes - Past Social History Smoking Status: Former Smoker - CARDIAC Hx Hypertension: Yes Hx Peripheral Edema: Yes - PULMONARY Hx Bronchitis: Yes Hx Chronic Obstructive Pulmonary Disease (COPD): Yes - NEUROLOGICAL Hx Neurological Disorder: No - HEENT Hx HEENT Problems: No - RENAL Hx Chronic Kidney Disease: Yes - ENDOCRINE/METABOLIC Hx Diabetes Mellitus Type 2: Yes - HEMATOLOGICAL/ONCOLOGICAL Hx Anemia: Yes - INTEGUMENTARY Hx Dermatological Problems: Yes Hx Cellulitis: Yes - MUSCULOSKELETAL/RHEUMATOLOGICAL Hx Falls: Yes - GASTROINTESTINAL Hx Gastrointestinal Disorders: Yes Hx Gastroesophageal Reflux: Yes - GENITOURINARY/GYNECOLOGICAL Hx Genitourinary Disorders: No - PSYCHIATRIC Hx Substance Use: No - SURGICAL HISTORY Hx Surgeries: Yes (Left arm AV Fistula) Hx Vascular Surgery: Yes (ACCESS FOR DIALYSIS) - ANESTHESIA Hx Anesthesia: Yes Hx Anesthesia Reactions: No Hx Malignant Hyperthermia: No Meds Allergies/Adverse Reactions: Allergies Allergy/AdvReac Type Severity Reaction Status Date / Time piperacillin AdvReac ITCHING, Verified 07/12/17 21:02 SHORTNESS OF BREATH PET DANDER Allergy Severe CONGESTION Uncoded 07/12/17 21:02 Physical Exam - Constitutional Appears: Non-toxic, No Acute Distress, Other (obese) - Head Exam Head Exam: ATRAUMATIC, NORMOCEPHALIC - Eye Exam Eye Exam: EOMI - ENT Exam ENT Exam: Mucous Membranes Dry - Neck Exam Neck exam: Positive for: Normal Inspection - Respiratory Exam Respiratory Exam: Clear to Auscultation Bilateral, NORMAL BREATHING PATTERN. absent: Wheezes - Cardiovascular Exam Cardiovascular Exam: +S1, +S2 - GI/Abdominal Exam GI & Abdominal Exam: Normal Bowel Sounds, Soft. absent: Tenderness - Extremities Exam Additional comments: chronic lymph edema b/l lower extremities dark thickened skin b/l right medial thigh firm on palpation, warm to touch left upper extremity with AVF with palpable thrill - Neurological Exam Neurological exam: Alert, Oriented x3 - Psychiatric Exam Psychiatric exam: Normal Affect - Skin Skin Exam: Warm Additional comments: no open wounds appreciated on back, sacrum, legs multiple skin folds Results - Vital Signs Recent Vital Signs: Last Vital Signs Temp 97.9 F 07/12/17 21:05 Pulse 97 H 07/13/17 03:11 Resp 19 07/13/17 03:11 BP 109/46 L 07/13/17 03:11 Pulse Ox 99 07/13/17 03:15 - Labs Result Diagrams: 07/12/17 22:31 07/12/17 22:31 Labs: Laboratory Results - last 24 hr 07/12/17 07/12/17 07/12/17 22:31 22:31 22:31 WBC 10.3 RBC 4.72 Hgb 11.7 L Hct 36.2 MCV 76.8 L MCH 24.9 L MCHC 32.4 L RDW 17.6 H Plt Count 326 MPV 8.5 Neut % (Auto) 76.3 H Lymph % (Auto) 16.0 L Bond % (Auto) 3.2 Eos % (Auto) 4.1 H Baso % (Auto) 0.4 Neut # 7.8 H Lymph # 1.6 Bond # 0.3 Eos # 0.4 Baso # 0.0 PT 11.4 INR 1.0 APTT 31 Sodium 137 Potassium 3.9 Chloride 93 L Carbon Dioxide 28 Anion Gap 19 BUN 71 H Creatinine 3.1 H Est GFR ( Amer) 26 Est GFR (Non-Af Amer) 22 Random Glucose 86 Calcium 9.9 Total Bilirubin 0.7 AST 33 ALT 32 Alkaline Phosphatase 115 Total Protein 8.9 H Albumin 4.1 Globulin 4.8 H Albumin/Globulin Ratio 0.9 L Assessment & Plan - Assessment and Plan (Free Text) Assessment: 1. Cellulitis right thigh with history cellulitis, warm on examination will start clindamycin and aztreonam IVPB, will avoid vancomycin due to ESRD nystatin powder for skin folds tramadol 50mg q8h prn for pain f/u blood cultures f/u LE duplex 2. ESRD on HD HD on TTS renal diet Dr. Mota consulted- help appreciated 3. Hx Asthma duonebs prn 4. Prophylactic measure pepcid 20mg daily heparin 5000 q12h physical therapy eval Plan D/W Dr. Quinn <Ti Quinn - Last Filed: 07/13/17 06:44> Results - Vital Signs Recent Vital Signs: Last Vital Signs Temp 97.9 F 07/12/17 21:05 Pulse 94 H 07/13/17 06:29 Resp 20 07/13/17 06:29 BP 113/43 L 07/13/17 06:29 Pulse Ox 93 L 07/13/17 06:29 - Labs Result Diagrams: 07/12/17 22:31 07/12/17 22:31 Assessment & Plan - Date & Time Date: 07/13/17 (I have seen and examined the patient. I agree with the findings and plan of care as documented by Dr. Reid. Patient with cellulitis. Previously with similar issue. Continue Clinda and Aztreomycin from previous admission. Consult nephro for ESRD in order to continue dialysis. Continue home meds for history of asthma. Nebs, oxygen as needed. Monitor for acute changes.) Time: 06:43 Attending/Attestation - Attestation I have personally seen and examined this patient.: Yes I have fully participated in the care of the patient.: Yes I have reviewed all pertinent clinical information: Yes
[2017-07-13] MEDS: Aztreonam 2 GM in Sodium Chloride 0.9% 100 ML IVPB SCH (03:29)
[2017-07-13 11:48] LABS: EOS % 0.1 % (0.0-4.0); LYMPH # 0.5 K/uL (1.0-4.3); MEAN CORPUSCULAR HEMOGLOBIN 24.2 pg (27.0-31.0)
[2017-07-13 11:57] LABS: BASO % 0.2 % (0.0-2.0); HEMATOCRIT 31.4 % (35.0-51.0); LYMPH % 2.1 % (20.0-40.0); MEAN CELL VOLUME 76.7 fL (80.0-94.0); MEAN CORPUSCULAR HGB CONC 31.6 g/dL (33.0-37.0); MEAN PLATELET VOLUME 8.3 fL (7.2-11.7); MONO # 0.5 K/uL (0.0-0.8); MONO % 2.1 % (0.0-10.0); PLATELET COUNT 232 K/uL (130-400); RED CELL DISTRIBUTION WIDTH 17.1 % (11.5-14.5)
[2017-07-13 11:59] LABS: WHITE BLOOD COUNT 24.5 K/uL (4.8-10.8)
[2017-07-13 12:08] LABS: POTASSIUM 4.7 mmol/L (3.6-5.2)
[2017-07-13 12:10] LABS: BILIRUBIN,TOTAL 1.3 mg/dL (0.2-1.3)
[2017-07-13 12:11] LABS: ALB/GLOB RATIO 0.9 (1.0-2.1); CALCIUM 8.9 mg/dl (8.6-10.4); TOTAL PROTEIN 7.1 g/dL (6.3-8.3)
[2017-07-13 12:30] LABS: NEUTROPHIL 56 % (50-75); TOTAL CELLS COUNTED 100
[2017-07-13] MEDS ORDERED: Lidocaine/Prilocaine 2.5%-2.5% Cream (5 gm) TOP STA (13:19)
--- NOTE | 2017-07-13 13:23 | CP.PCM.CON ---
History of Present Illness - History of Present Illness History of Present Illness: Patient is a 51 year old male with past medical history ESRD on HD, chronic lymph edema, asthma/ bronchitis who presents to the ED with complaint of right leg swelling and pain. Patient states that he is prone to cellulitis due to his body habitus and that he cannot see the skin on the back of his legs well. Patient states that this past weekend he felt that his right thigh was weeping clear fluid but was not painful. Patient states that earlier on 07/12 he tried to take a nap but woke up at 6PM with pain in his right thigh. Patient states he felt his thigh was firm and warm, like a balloon was inside his leg. Patient states he did not try to see his PMD for this issue and called the ambulance to bring him to the ED. Patient states in the past when he has had this issue the cellulitis quickly worsens. Patient complaining of chills but denies fever. Patient without other complaints at this time. 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), chronic lymphedema, asthma/ bronchitis PSHx: AVF left upper extremity, I&D right leg pressure ulcer Fam Hx: mother from ovarian cancer, uncle with diabetes Social Hx: tobacco 8-10 cigarettes daily on and off since , occasional alcohol use- no hard liquor, ambulates with a cane, lives alone Review of Systems - Review of Systems All systems: reviewed and no additional remarkable complaints except (as per hpi ) Past Patient History - Infectious Disease Hx of Infectious Diseases: None - Past Medical History & Family History Past Medical History?: Yes - Past Social History Smoking Status: Former Smoker - CARDIAC Hx Hypertension: Yes Hx Peripheral Edema: Yes - PULMONARY Hx Bronchitis: Yes Hx Chronic Obstructive Pulmonary Disease (COPD): Yes - NEUROLOGICAL Hx Neurological Disorder: No - HEENT Hx HEENT Problems: No - RENAL Hx Chronic Kidney Disease: Yes - ENDOCRINE/METABOLIC Hx Diabetes Mellitus Type 2: Yes - HEMATOLOGICAL/ONCOLOGICAL Hx Anemia: Yes - INTEGUMENTARY Hx Dermatological Problems: Yes Hx Cellulitis: Yes - MUSCULOSKELETAL/RHEUMATOLOGICAL Hx Falls: Yes - GASTROINTESTINAL Hx Gastrointestinal Disorders: Yes Hx Gastroesophageal Reflux: Yes - GENITOURINARY/GYNECOLOGICAL Hx Genitourinary Disorders: No - PSYCHIATRIC Hx Substance Use: No - SURGICAL HISTORY Hx Surgeries: Yes (Left arm AV Fistula) Hx Vascular Surgery: Yes ([facility]) - ANESTHESIA Hx Anesthesia: Yes Hx Anesthesia Reactions: No Hx Malignant Hyperthermia: No Meds Allergies/Adverse Reactions: Allergies Allergy/AdvReac Type Severity Reaction Status Date / Time piperacillin AdvReac ITCHING, Verified 07/12/17 21:02 SHORTNESS OF BREATH PET DANDER Allergy Severe CONGESTION Uncoded 07/12/17 21:02 - Medications Medications: Current Medications Albuterol/Ipratropium (Duoneb 3 Mg/0.5 Mg (3 Ml) Ud) 3 ml INH RQ6 PRN PRN Reason: Shortness of Breath Famotidine (Pepcid) 20 mg PO DAILY [facility] Last Admin: 07/13/17 09:02 Dose: 20 mg Heparin Sodium (Porcine) (Heparin) 5,000 units SC Q12 [facility] Last Admin: 07/13/17 09:09 Dose: 5,000 units Aztreonam 2 gm/ Sodium (Chloride) 100 mls @ 200 mls/hr IVPB Q24H [facility] Last Admin: 07/13/17 03:29 Dose: 200 mls/hr Clindamycin Phosphate 600 mg/ (Sodium Chloride) 54 mls @ 100 mls/hr IVPB Q8H [facility] Last Admin: 07/13/17 06:20 Dose: 100 mls/hr Lidocaine/Prilocaine (Emla) 1 gm TOP TTS STA Stop: 07/13/17 13:20 Nystatin (Nystop Topical Powder) 0 gm TOP Q6 PRN PRN Reason: Rash Tramadol HCl (Ultram) 50 mg PO Q8 PRN PRN Reason: Pain, moderate (4-7) Last Admin: 07/13/17 09:01 Dose: 50 mg Physical Exam - Constitutional Appears: No Acute Distress, Chronically Ill (obese) - Head Exam Head Exam: NORMAL INSPECTION - Eye Exam Eye Exam: Normal appearance - ENT Exam ENT Exam: Mucous Membranes Moist, Normal Exam - Neck Exam Neck exam: Positive for: Normal Inspection - Respiratory Exam Respiratory Exam: NORMAL BREATHING PATTERN (distant breath sounds) - Cardiovascular Exam Cardiovascular Exam: REGULAR RHYTHM, RRR - GI/Abdominal Exam GI & Abdominal Exam: Distended, Soft - Extremities Exam Additional comments: rle warm chronic stasis b/l LE Results - Vital Signs Recent Vital Signs: Last Vital Signs Temp 98.8 F 08/15/17 08:06 Pulse 77 07/13/17 08:06 Resp 20 07/13/17 08:06 BP 116/75 07/13/17 08:06 Pulse Ox 97 07/13/17 08:06 - Labs Result Diagrams: 07/13/17 11:35 07/13/17 11:35 Labs: Laboratory Results - last 24 hr 07/13/17 07/13/17 11:35 11:35 WBC 24.5 H D RBC 4.09 L Hgb 9.9 L Hct 31.4 L MCV 76.7 L MCH 24.2 L MCHC 31.6 L RDW 17.1 H Plt Count 232 MPV 8.3 Neut % (Auto) 95.5 H Lymph % (Auto) 2.1 L [place] % (Auto) 2.1 Eos % (Auto) 0.1 Baso % (Auto) 0.2 Neut # 23.4 H Lymph # 0.5 L [place] # 0.5 Eos # 0.0 Baso # 0.0 Neutrophils % (Manual) 56 Band Neutrophils % 40 H* Lymphocytes % (Manual) 2 L Monocytes % (Manual) 2 Toxic Granulation Present Platelet Estimate Normal Hypochromasia (manual) Slight Anisocytosis (manual) Slight Sodium 134 Potassium 4.7 Chloride 94 L Carbon Dioxide 26 Anion Gap 18 BUN 73 H Creatinine 3.3 H Est GFR ( Amer) 24 Est GFR (Non-Af Amer) 20 Random Glucose 161 H Calcium 8.9 Total Bilirubin 1.3 AST 30 ALT 38 Alkaline Phosphatase 106 Total Protein 7.1 Albumin 3.3 L Globulin 3.8 Albumin/Globulin Ratio 0.9 L Assessment & Plan (1) Cellulitis of extremity Status: Acute (2) ESRD (end stage renal disease) Status: Acute (3) Diabetes Status: Acute (4) Hypertension Status: Acute - Assessment and Plan (Free Text) Assessment: # esrd # cellulitis rt leg # htn # anemia # chronic stasis plan: hd today, uf as tolerated migue w/ hd blood cx to be drawn w/ hd today bp acceptable
--- NOTE | 2017-07-13 14:27 | CP.PCM.CON ---
History of Present Illness - History of Present Illness History of Present Illness: dictated Past Patient History - Infectious Disease Hx of Infectious Diseases: None - Past Medical History & Family History Past Medical History?: Yes - Past Social History Smoking Status: Former Smoker - CARDIAC Hx Hypertension: Yes Hx Peripheral Edema: Yes - PULMONARY Hx Bronchitis: Yes Hx Chronic Obstructive Pulmonary Disease (COPD): Yes - NEUROLOGICAL Hx Neurological Disorder: No - HEENT Hx HEENT Problems: No - RENAL Hx Chronic Kidney Disease: Yes - ENDOCRINE/METABOLIC Hx Diabetes Mellitus Type 2: Yes - HEMATOLOGICAL/ONCOLOGICAL Hx Anemia: Yes - INTEGUMENTARY Hx Dermatological Problems: Yes Hx Cellulitis: Yes - MUSCULOSKELETAL/RHEUMATOLOGICAL Hx Falls: Yes - GASTROINTESTINAL Hx Gastrointestinal Disorders: Yes Hx Gastroesophageal Reflux: Yes - GENITOURINARY/GYNECOLOGICAL Hx Genitourinary Disorders: No - PSYCHIATRIC Hx Substance Use: No - SURGICAL HISTORY Hx Surgeries: Yes (Left arm AV Fistula) Hx Vascular Surgery: Yes ([facility]) - ANESTHESIA Hx Anesthesia: Yes Hx Anesthesia Reactions: No Hx Malignant Hyperthermia: No Meds Allergies/Adverse Reactions: Allergies Allergy/AdvReac Type Severity Reaction Status Date / Time piperacillin AdvReac ITCHING, Verified 07/12/17 21:02 SHORTNESS OF BREATH PET DANDER Allergy Severe CONGESTION Uncoded 07/12/17 21:02 - Medications Medications: Current Medications Acetaminophen (Tylenol 325mg Tab) 650 mg PO Q6 PRN PRN Reason: Pain, Mild (1-3) Albuterol/Ipratropium (Duoneb 3 Mg/0.5 Mg (3 Ml) Ud) 3 ml INH RQ6 PRN PRN Reason: Shortness of Breath Epoetin [place] (Procrit) 4,000 unit IV TTS [facility] Famotidine (Pepcid) 20 mg PO DAILY [facility] Last Admin: 07/13/17 09:02 Dose: 20 mg Heparin Sodium (Porcine) (Heparin) 5,000 units SC Q12 [facility] Last Admin: 07/13/17 09:09 Dose: 5,000 units Hydromorphone HCl (Dilaudid) 1 mg IVP Q4H PRN PRN Reason: Pain, severe (8-10) Aztreonam 2 gm/ Sodium (Chloride) 100 mls @ 200 mls/hr IVPB Q24H [facility] Last Admin: 07/13/17 03:29 Dose: 200 mls/hr Clindamycin Phosphate 600 mg/ (Sodium Chloride) 54 mls @ 100 mls/hr IVPB Q8H [facility] Last Admin: 07/13/17 13:33 Dose: 100 mls/hr Nystatin (Nystop Topical Powder) 0 gm TOP Q6 PRN PRN Reason: Rash Results - Vital Signs Recent Vital Signs: Last Vital Signs Temp 98.8 F 07/13/17 08:06 Pulse 77 07/13/17 08:06 Resp 20 07/13/17 08:06 BP 116/75 07/13/17 08:06 Pulse Ox 97 07/13/17 08:06 - Labs Result Diagrams: 07/13/17 11:35 07/13/17 11:35 Labs: Laboratory Results - last 24 hr 07/13/17 07/13/17 11:35 11:35 WBC 24.5 H D RBC 4.09 L Hgb 9.9 L Hct 31.4 L MCV 76.7 L MCH 24.2 L MCHC 31.6 L RDW 17.1 H Plt Count 232 MPV 8.3 Neut % (Auto) 95.5 H Lymph % (Auto) 2.1 L [place] % (Auto) 2.1 Eos % (Auto) 0.1 Baso % (Auto) 0.2 Neut # 23.4 H Lymph # 0.5 L [place] # 0.5 Eos # 0.0 Baso # 0.0 Neutrophils % (Manual) 56 Band Neutrophils % 40 H* Lymphocytes % (Manual) 2 L Monocytes % (Manual) 2 Toxic Granulation Present Platelet Estimate Normal Hypochromasia (manual) Slight Anisocytosis (manual) Slight Sodium 134 Potassium 4.7 Chloride 94 L Carbon Dioxide 26 Anion Gap 18 BUN 73 H Creatinine 3.3 H Est GFR ( Amer) 24 Est GFR (Non-Af Amer) 20 Random Glucose 161 H Calcium 8.9 Total Bilirubin 1.3 AST 30 ALT 38 Alkaline Phosphatase 106 Total Protein 7.1 Albumin 3.3 L Globulin 3.8 Albumin/Globulin Ratio 0.9 L
--- NOTE | 2017-07-13 14:31 | CP.PCM.PN ---
<Shin Levy - Last Filed: 07/13/17 14:28> Subjective - Date & Time of Evaluation Date of Evaluation: 07/13/17 Time of Evaluation: 14:00 - Subjective Subjective: PGY-[address] Adin Jiang Patient seen and examined at bedside. Patient reports pain in the right leg localized along the inner thigh and posterior regions of the right thigh and leg. Patient denies current subjective fevers but admits chills. Patient denies headache, dizziness, chest pain, SOB, abdominal pain, n/v/c/d. Objective - Vital Signs/Intake and Output Vital Signs (last 24 hours): Temp Pulse Resp BP Pulse Ox 98.8 F 77 20 116/75 97 07/13/17 08:06 07/13/17 08:06 07/13/17 08:06 07/13/17 08:06 07/13/17 08:06 - Medications Medications: Current Medications Acetaminophen (Tylenol 325mg Tab) 650 mg PO Q6 PRN PRN Reason: Pain, Mild (1-3) Albuterol/Ipratropium (Duoneb 3 Mg/0.5 Mg (3 Ml) Ud) 3 ml INH RQ6 PRN PRN Reason: Shortness of Breath Epoetin [place] (Procrit) 4,000 unit IV TTS [facility] Famotidine (Pepcid) 20 mg PO DAILY [facility] Last Admin: 07/13/17 09:02 Dose: 20 mg Heparin Sodium (Porcine) (Heparin) 5,000 units SC Q12 [facility] Last Admin: 07/13/17 09:09 Dose: 5,000 units Hydromorphone HCl (Dilaudid) 1 mg IVP Q4H PRN PRN Reason: Pain, severe (8-10) Aztreonam 2 gm/ Sodium (Chloride) 100 mls @ 200 mls/hr IVPB Q24H [facility] Last Admin: 07/13/17 03:29 Dose: 200 mls/hr Clindamycin Phosphate 600 mg/ (Sodium Chloride) 54 mls @ 100 mls/hr IVPB Q8H [facility] Last Admin: 07/13/17 13:33 Dose: 100 mls/hr Nystatin (Nystop Topical Powder) 0 gm TOP Q6 PRN PRN Reason: Rash - Labs Labs: 07/13/17 11:35 07/13/17 11:35 PT 11.4 SECONDS (9.7-12.2) 07/12/17 22:31 INR 1.0 07/12/17 22:31 APTT 31 SECONDS (21-34) 07/12/17 22:31 - Constitutional Appears: No Acute Distress - Head Exam Head Exam: ATRAUMATIC, NORMAL INSPECTION, NORMOCEPHALIC - Eye Exam Eye Exam: EOMI (strabismus left eye), PERRL - ENT Exam ENT Exam: Mucous Membranes Dry - Respiratory Exam Respiratory Exam: Decreased Breath Sounds (secondary to body habitus). absent: Rales, Rhonchi, Wheezes - Cardiovascular Exam Cardiovascular Exam: REGULAR RHYTHM, +S1, +S2 - GI/Abdominal Exam GI & Abdominal Exam: Soft, Normal Bowel Sounds. absent: Tenderness - Extremities Exam Extremities Exam: Tenderness Additional comments: Significant lymphedema of bilateral lower extremities reaching up to the groin but Right>left. Erythema on right inner thigh, right popliteal region, right posterior proximal calf. Not actively draining fluid at time of examination. - Neurological Exam Neurological Exam: Alert, Awake, Oriented x3 - Skin Skin Exam: Dry Assessment and Plan - Assessment and Plan (Free Text) Plan: Cellulitis right thigh with history cellulitis, warm on examination clindamycin 600 mg Q8 IV Aztreonam 2 gm Q24H IVPB nystatin powder for skin folds Dilaudid 1 mg IV Q4 prn severe pain Tylenol 650 mg Q6 prn mild pain Dr. Sander LOVE consulted, help appreciated f/u blood cultures f/u LE duplex ESRD on HD HD on , , renal diet Dr. Mota consulted- help appreciated History of Asthma duonebs prn Prophylactic measure pepcid 20mg daily heparin 5000 q12h physical therapy eval and treatment Case DW Dr. Adin Levy PGY1 <Yuriy Jiang M - Last Filed: 07/13/17 17:59> Objective - Vital Signs/Intake and Output Vital Signs (last 24 hours): Temp Pulse Resp BP Pulse Ox 99.6 F 92 H 20 106/56 L 95 07/13/17 14:40 07/13/17 16:15 07/13/17 16:15 07/13/17 17:10 07/13/17 14:40 Intake and Output: 07/13/17 07/13/17 06:59 18:59 Intake Total 500 Output Total 400 Balance 100 - Medications Medications: Current Medications Acetaminophen (Tylenol 325mg Tab) 650 mg PO Q6 PRN PRN Reason: Pain, Mild (1-3) Albuterol/Ipratropium (Duoneb 3 Mg/0.5 Mg (3 Ml) Ud) 3 ml INH RQ6 PRN PRN Reason: Shortness of Breath Epoetin [place] (Procrit) 4,000 unit IV TTS [facility] Last Admin: 07/13/17 15:40 Dose: 4,000 unit Famotidine (Pepcid) 20 mg PO DAILY [facility] Last Admin: 07/13/17 09:02 Dose: 20 mg Heparin Sodium (Porcine) (Heparin) 5,000 units SC Q12 [facility] Last Admin: 07/13/17 09:09 Dose: 5,000 units Hydromorphone HCl (Dilaudid) 1 mg IVP Q4H PRN PRN Reason: Pain, severe (8-10) Aztreonam 2 gm/ Sodium (Chloride) 100 mls @ 200 mls/hr IVPB Q24H [facility] Last Admin: 07/13/17 03:29 Dose: 200 mls/hr Clindamycin Phosphate 600 mg/ (Sodium Chloride) 54 mls @ 100 mls/hr IVPB Q8H [facility] Last Admin: 07/13/17 13:33 Dose: 100 mls/hr Nystatin (Nystop Topical Powder) 0 gm TOP Q6 PRN PRN Reason: Rash - Labs Labs: 07/13/17 11:35 07/13/17 11:35 PT 11.4 SECONDS (9.7-12.2) 07/12/17 22:31 INR 1.0 07/12/17 22:31 APTT 31 SECONDS (21-34) 07/12/17 22:31 Attending/Attestation - Attestation I have personally seen and examined this patient.: Yes I have fully participated in the care of the patient.: Yes I have reviewed all pertinent clinical information, including history, physical exam and plan: Yes Notes (Text): 07/13/17 17:59 Patient was seen and examined at bedside with the resident Patient is complaining of significant pain and swelling in the right thigh We will start the patient on IV antibiotics for cellulitis Septic workup is in progress and we have requested infectious disease consultation for the patient I agree with assessment and plan recommended by the resident.
[2017-07-13] MEDS: EPOETIN ALFA 4,000 UNIT/ML ML Dialysis IV SCH (15:40)
[2017-07-13] MEDS: HYDROmorphone 1 mg/ml ISec IVP PRN (18:44)
[2017-07-14] MEDS: HYDROmorphone 1 mg/ml ISec IVP PRN ×4 (01:18→17:21)
[2017-07-14] MEDS: Aztreonam 2 GM in Sodium Chloride 0.9% 100 ML IVPB SCH (03:31)
[2017-07-14 07:21] LABS: POTASSIUM 3.9 mmol/L (3.6-5.2)
[2017-07-14 07:23] LABS: ALB/GLOB RATIO 0.8 (1.0-2.1); BILIRUBIN,TOTAL 1.2 mg/dL (0.2-1.3); CALCIUM 9.2 mg/dl (8.6-10.4); TOTAL PROTEIN 7.9 g/dL (6.3-8.3)
[2017-07-14 07:24] LABS: BASO % 0.1 % (0.0-2.0); EOS # 0.1 K/uL (0.0-0.7); EOS % 0.7 % (0.0-4.0); LYMPH % 5.1 % (20.0-40.0); MEAN CELL VOLUME 76.4 fL (80.0-94.0); MEAN CORPUSCULAR HEMOGLOBIN 24.3 pg (27.0-31.0); MEAN CORPUSCULAR HGB CONC 31.8 g/dL (33.0-37.0); MEAN PLATELET VOLUME 8.3 fL (7.2-11.7); MONO # 1.4 K/uL (0.0-0.8); MONO % 6.7 % (0.0-10.0); PLATELET COUNT 234 K/uL (130-400); RED CELL DISTRIBUTION WIDTH 17.3 % (11.5-14.5); WHITE BLOOD COUNT 20.4 K/uL (4.8-10.8)
--- NOTE | 2017-07-14 08:45 | CON ---
DATE: HISTORY OF PRESENT ILLNESS: This patient is a 51-year-old male. He is well known to me, who he has end-stage renal disease. He is on dialysis. He also has chronic lymphedema and has had multiple bouts of cellulitis on his edematous legs in the past, history of asthma. He came in with the right leg swelling and pain. He said over the weekend, he saw some drainage on his back from the skin, weeping clear fluid was noted. He felt it on his right thigh and started to take a knap, but he felt his thigh with warm and redness and was getting swollen and he knows that he has had cellulitis in the past, so he decided to come here. He denies any chills and denies any fevers, but he said since he has had previously problems, he decided to come as it was draining, but right now it is not draining today anymore. He is going to get dialysis just now and I am there. PAST MEDICAL HISTORY: Significant for dialysis Wednesday, and Wednesday. He has also chronic lymphedema, asthma, bronchitis. Significant for having cellulitis in his leg and he was here a few months ago. He is a smoker, history of hypertension, chronic lymphedema, COPD, and chronic kidney disease, he is diabetic type 2 and he has cellulitis, he has history of fall,and history of gastroesophageal reflux disease. PAST SURGICAL HISTORY: Significant for AVF, left upper extremity, I and D right leg pressure ulcers. ALLERGIES: HE IS ALLERGIC TO PEPERACILLIN. FAMILY HISTORY: Mother of an ovarian cancer. Uncle has diabetes. SOCIAL HISTORY: Significant for smoking, 8-10 cigarettes daily on and off since 1979 and he also occasionally has alcohol, no hard liquor. He ambulates with a cane. He lives alone. REVIEW OF SYSTEMS: He just came with having this right leg swelling, pain, edema and drainage and has chronic lymphedema. MEDICATIONS: He is on albuterol, Pepcid, heparin, Azactam, clindamycin, lidocaine, nystatin, and tramadol. PHYSICAL EXAMINATION GENERAL: He appears to be in no acute respiratory distress. VITAL SIGNS: T-max is 98.1, pulse 83, blood pressure 103/68, and respirations 18. HEENT: Head is atraumatic and normocephalic. Pupils are reacting to light. Eye movements are unremarkable. He wears glasses. Tongue is moist. NECK: Supple. JVP is flat. LUNGS: Clear. No crackles or rales heard. Decreased breath sounds bilaterally. HEART: S1 and S2 is regular. No murmurs appreciated. ABDOMEN: Flabby and nontender. No guarding. No rigidity present. EXTREMITIES: On both legs have chronic lymphedema. Right leg has multiple folds of skin over it and in the right thigh, there is increased warmth and swelling and redness noted. There was no drainage. I was not able to view the posterior, his back as they were staring the dialysis right than. I did order blood cultures. LABORATORY DATA: Noted. White count is 24.5, hemoglobin 9.9, hematocrit 31.4, and platelet count is 232, bands are reported 40, lymphs are 2, monocytes are 2. Sodium 134, potassium 4.7, chloride 94, creatinine is 3.3. His hepatitis profile is negative. I had ordered lactic acid level. They are going to do it what I guess, it was not done. PLAN: At this time, we will continue with clindamycin and Azactam. His white count is elevated with severe bandemia; however, he did get a lower dose of clindamycin before, so I am hoping this will help him and will follow and repeat the labs tomorrow again and he came in with cellulitis and edema and has chronic lymphedema and is a dialysis patient and has end-stage renal disease and we will follow with you. Alec Boucher MD
[2017-07-14 09:24] LABS: BASOPHIL 1 % (0-2); EOSINOPHIL 1 % (0-4); NEUTROPHIL 66 % (50-75); TOTAL CELLS COUNTED 100
--- NOTE | 2017-07-14 10:05 | CP.PCM.PN ---
Subjective - Date & Time of Evaluation Date of Evaluation: 07/14/17 Time of Evaluation: 10:02 - Subjective Subjective: Feels sl better Right thigh still with pains Leukocytosis noted On IV ABs Tolerated dialysis 07/13 BP controlled Only c/o thigh pains; no n, v, fevers, chills now, HAs, diarrhea Objective - Vital Signs/Intake and Output Vital Signs (last 24 hours): Temp Pulse Resp BP Pulse Ox 98.6 F 89 20 110/68 97 07/14/17 08:44 07/14/17 08:44 07/14/17 08:44 07/14/17 08:44 07/14/17 08:44 Intake and Output: 07/14/17 07/14/17 06:59 18:59 Intake Total 950 Output Total 200 Balance 750 - Medications Medications: Current Medications Acetaminophen (Tylenol 325mg Tab) 650 mg PO Q6 PRN PRN Reason: Pain, Mild (1-3) Albuterol/Ipratropium (Duoneb 3 Mg/0.5 Mg (3 Ml) Ud) 3 ml INH RQ6 PRN PRN Reason: Shortness of Breath Epoetin [place] (Procrit) 4,000 unit IV TTS [facility] Last Admin: 07/13/17 15:40 Dose: 4,000 unit Famotidine (Pepcid) 20 mg PO DAILY [facility] Last Admin: 07/14/17 09:53 Dose: 20 mg Heparin Sodium (Porcine) (Heparin) 5,000 units SC Q12 [facility] Last Admin: 07/14/17 09:53 Dose: 5,000 units Hydromorphone HCl (Dilaudid) 1 mg IVP Q4H PRN PRN Reason: Pain, severe (8-10) Last Admin: 07/14/17 08:38 Dose: 1 mg Aztreonam 2 gm/ Sodium (Chloride) 100 mls @ 200 mls/hr IVPB Q24H [facility] Last Admin: 07/14/17 03:31 Dose: 200 mls/hr Clindamycin Phosphate 600 mg/ (Sodium Chloride) 54 mls @ 100 mls/hr IVPB Q8H [facility] Last Admin: 07/14/17 05:13 Dose: 100 mls/hr Nystatin (Nystop Topical Powder) 0 gm TOP Q6 PRN PRN Reason: Rash - Labs Labs: 07/14/17 07:05 08/16/17 07:05 PT 11.4 SECONDS (9.7-12.2) 07/12/17 22:31 INR 1.0 07/12/17 22:31 APTT 31 SECONDS (21-34) 07/12/17 22:31 - Constitutional Appears: No Acute Distress, Chronically Ill - Head Exam Head Exam: ATRAUMATIC, NORMAL INSPECTION - Eye Exam Eye Exam: EOMI, Normal appearance - Neck Exam Neck Exam: Normal Inspection. absent: Tenderness - Respiratory Exam Respiratory Exam: Clear to Ausculation Bilateral, NORMAL BREATHING PATTERN - Cardiovascular Exam Cardiovascular Exam: REGULAR RHYTHM, +S1 - GI/Abdominal Exam GI & Abdominal Exam: Soft. absent: Tenderness - Extremities Exam Extremities Exam: Calf Tenderness, Pedal Edema, Tenderness - Neurological Exam Neurological Exam: Alert, CN II-XII Intact - Skin Skin Exam: Dry, Warm Assessment and Plan (1) Cellulitis of right lower leg Status: Acute (2) ESRD (end stage renal disease) Status: Acute (3) Elevated WBC count Status: Acute (4) Peripheral edema Status: Acute (5) Lymphedema of lower extremity Status: Chronic - Assessment and Plan (Free Text) Plan: IV ABs Wound care Dialysis TTS
--- NOTE | 2017-07-14 17:11 | CP.PCM.PN ---
<Shin Levy - Last Filed: 07/14/17 17:13> Subjective - Date & Time of Evaluation Date of Evaluation: 07/14/17 Time of Evaluation: 07:00 - Subjective Subjective: PGY-[address] Adin Jiang Patient seen and examined at bedside. Patient reports that his leg pain is improved on current medication regimen. Patient complaining of constipation and requesting medication for it. Patient denies fevers, chills, headaches, dizziness, chest pain, SOB, abdominal pain, dysuria. Objective - Vital Signs/Intake and Output Vital Signs (last 24 hours): Temp Pulse Resp BP Pulse Ox 98.6 F 80 20 109/68 94 L 07/14/17 15:00 07/14/17 15:00 07/14/17 15:00 07/14/17 15:00 07/14/17 15:00 Intake and Output: 07/14/17 07/14/17 06:59 18:59 Intake Total 950 290 Output Total 200 600 Balance 750 -310 - Medications Medications: Current Medications Acetaminophen (Tylenol 325mg Tab) 650 mg PO Q6 PRN PRN Reason: Pain, Mild (1-3) Albuterol/Ipratropium (Duoneb 3 Mg/0.5 Mg (3 Ml) Ud) 3 ml INH RQ6 PRN PRN Reason: Shortness of Breath Epoetin Ventura (Procrit) 4,000 unit IV TTS [facility] Last Admin: 07/13/17 15:40 Dose: 4,000 unit Famotidine (Pepcid) 20 mg PO DAILY [facility] Last Admin: 07/14/17 09:53 Dose: 20 mg Heparin Sodium (Porcine) (Heparin) 5,000 units SC Q12 [facility] Last Admin: 07/14/17 09:53 Dose: 5,000 units Hydromorphone HCl (Dilaudid) 1 mg IVP Q4H PRN PRN Reason: Pain, severe (8-10) Last Admin: 07/14/17 12:57 Dose: 1 mg Aztreonam 2 gm/ Sodium (Chloride) 100 mls @ 200 mls/hr IVPB Q24H [facility] Last Admin: 07/14/17 03:31 Dose: 200 mls/hr Clindamycin Phosphate 600 mg/ (Sodium Chloride) 54 mls @ 100 mls/hr IVPB Q8H [facility] Last Admin: 07/14/17 14:19 Dose: 100 mls/hr Nystatin (Nystop Topical Powder) 0 gm TOP Q6 PRN PRN Reason: Rash Polyethylene Glycol (Miralax) 17 gm PO DAILY [facility] - Labs Labs: 07/14/17 07:05 07/14/17 07:05 PT 11.4 SECONDS (9.7-12.2) 07/12/17 22:31 INR 1.0 07/12/17 22:31 APTT 31 SECONDS (21-34) 07/12/17 22:31 - Constitutional Appears: No Acute Distress - Head Exam Head Exam: ATRAUMATIC, NORMAL INSPECTION, NORMOCEPHALIC - Eye Exam Eye Exam: EOMI (strabismus left eye), PERRL - ENT Exam ENT Exam: Mucous Membranes Moist - Respiratory Exam Respiratory Exam: Clear to Ausculation Bilateral. absent: Rales, Rhonchi, Wheezes - Cardiovascular Exam Cardiovascular Exam: REGULAR RHYTHM, +S1, +S2 - GI/Abdominal Exam GI & Abdominal Exam: Soft, Normal Bowel Sounds. absent: Tenderness - Extremities Exam Additional comments: Significant lymphedema of bilateral lower extremities reaching up to the groin but Right>left. Erythema on right inner thigh, right popliteal region, right posterior proximal calf, improved from yesterday. Not actively draining fluid at time of examination. - Neurological Exam Neurological Exam: Alert, Awake, Oriented x3 - Skin Skin Exam: Dry, Erythema, Warm Assessment and Plan - Assessment and Plan (Free Text) Plan: Cellulitis right thigh with history cellulitis, warm on examination clindamycin 600 mg Q8 IV Aztreonam 2 gm Q24H IVPB nystatin powder for skin folds Dilaudid 1 mg IV Q4 prn severe pain Tylenol 650 mg Q6 prn mild pain Dr. Sander LOVE consulted, help appreciated f/u blood cultures f/u LE duplex ESRD on HD HD on , , renal diet Dr. Mota consulted- help appreciated History of Asthma duonebs prn Prophylactic measure pepcid 20mg daily heparin 5000 q12h physical therapy eval and treatment Added Miralax 17 gm daily Case DW Dr. Adin Levy PGY1 <Yuriy Jiang - Last Filed: 07/15/17 16:07> Objective - Vital Signs/Intake and Output Vital Signs (last 24 hours): Temp Pulse Resp BP Pulse Ox 98.5 F 76 20 116/72 97 07/15/17 08:00 07/15/17 08:00 07/15/17 08:00 07/15/17 08:00 07/15/17 08:00 Intake and Output: 07/15/17 07/15/17 06:59 18:59 Intake Total 750 500 Output Total 600 400 Balance 150 100 - Medications Medications: Current Medications Acetaminophen (Tylenol 325mg Tab) 650 mg PO Q6 PRN PRN Reason: Pain, Mild (1-3) Albuterol/Ipratropium (Duoneb 3 Mg/0.5 Mg (3 Ml) Ud) 3 ml INH RQ6 PRN PRN Reason: Shortness of Breath Epoetin Ventura (Procrit) 4,000 unit IV TTS [facility] Last Admin: 07/13/17 15:40 Dose: 4,000 unit Famotidine (Pepcid) 20 mg PO DAILY [facility] Last Admin: 07/15/17 09:13 Dose: 20 mg Heparin Sodium (Porcine) (Heparin) 5,000 units SC Q12 [facility] Last Admin: 07/15/17 09:13 Dose: 5,000 units Heparin Sodium (Porcine) (Heparin) 2,000 units IVP TTS [facility] Hydromorphone HCl (Dilaudid) 1 mg IVP Q4H PRN PRN Reason: Pain, severe (8-10) Last Admin: 07/15/17 13:17 Dose: 1 mg Aztreonam 2 gm/ Sodium (Chloride) 100 mls @ 200 mls/hr IVPB Q24H [facility] Last Admin: 07/15/17 03:24 Dose: 200 mls/hr Clindamycin Phosphate 600 mg/ (Sodium Chloride) 54 mls @ 100 mls/hr IVPB Q8H [facility] Last Admin: 07/15/17 14:45 Dose: Not Given Nystatin (Nystop Topical Powder) 0 gm TOP Q6 PRN PRN Reason: Rash Polyethylene Glycol (Miralax) 17 gm PO DAILY [facility] Last Admin: 07/15/17 09:13 Dose: 17 gm Tramadol HCl (Ultram) 50 mg PO Q6H PRN PRN Reason: Pain, severe (8-10) - Labs Labs: 07/15/17 15:04 07/15/17 15:04 PT 11.4 SECONDS (9.7-12.2) 07/12/17 22:31 INR 1.0 07/12/17 22:31 APTT 31 SECONDS (21-34) 07/12/17 22:31 Attending/Attestation - Attestation I have personally seen and examined this patient.: Yes I have fully participated in the care of the patient.: Yes I have reviewed all pertinent clinical information, including history, physical exam and plan: Yes Notes (Text): 07/15/17 16:07 Patient was seen and examined at bedside with the resident Patient is clinically improving Continue IV antibiotics and discussed plan of care with the resident and agree with the assessment and plan documented
[2017-07-14] MEDS: POLYETHYLENE GLYCOL 3350 17 GM/Dose PACKET PO SCH ×2 (17:50→21:43)
[2017-07-15] MEDS: HYDROmorphone 1 mg/ml ISec IVP PRN ×5 (01:03→22:05)
[2017-07-15 01:16] VITALS: RESP 20
[2017-07-15] MEDS ORDERED: HYDROmorphone 1 mg/ml ISec IVP STA (02:22)
[2017-07-15] MEDS: Aztreonam 2 GM in Sodium Chloride 0.9% 100 ML IVPB SCH (03:24)
[2017-07-15] MEDS: POLYETHYLENE GLYCOL 3350 17 GM/Dose PACKET PO SCH (09:13)
--- NOTE | 2017-07-15 11:01 | CP.PCM.PN ---
Subjective - Date & Time of Evaluation Date of Evaluation: 07/15/17 Time of Evaluation: 10:59 - Subjective Subjective: patient seen and examined blood cx neg, significant leukocytosis. hd today denies any nausea vomiting fevers chills sob chest pain Objective - Vital Signs/Intake and Output Vital Signs (last 24 hours): Temp Pulse Resp BP Pulse Ox 98.5 F 76 20 116/72 97 07/15/17 08:00 07/15/17 08:00 07/15/17 08:00 07/15/17 08:00 07/15/17 08:00 Intake and Output: 07/15/17 07/15/17 06:59 18:59 Intake Total 750 Output Total 600 Balance 150 - Medications Medications: Current Medications Acetaminophen (Tylenol 325mg Tab) 650 mg PO Q6 PRN PRN Reason: Pain, Mild (1-3) Albuterol/Ipratropium (Duoneb 3 Mg/0.5 Mg (3 Ml) Ud) 3 ml INH RQ6 PRN PRN Reason: Shortness of Breath Epoetin Ventura (Procrit) 4,000 unit IV TTS [facility] Last Admin: 07/13/17 15:40 Dose: 4,000 unit Famotidine (Pepcid) 20 mg PO DAILY [facility] Last Admin: 07/15/17 09:13 Dose: 20 mg Heparin Sodium (Porcine) (Heparin) 5,000 units SC Q12 [facility] Last Admin: 07/15/17 09:13 Dose: 5,000 units Hydromorphone HCl (Dilaudid) 1 mg IVP Q4H PRN PRN Reason: Pain, severe (8-10) Last Admin: 07/15/17 09:23 Dose: 1 mg Aztreonam 2 gm/ Sodium (Chloride) 100 mls @ 200 mls/hr IVPB Q24H [facility] Last Admin: 07/15/17 03:24 Dose: 200 mls/hr Clindamycin Phosphate 600 mg/ (Sodium Chloride) 54 mls @ 100 mls/hr IVPB Q8H [facility] Last Admin: 07/15/17 05:56 Dose: 100 mls/hr Nystatin (Nystop Topical Powder) 0 gm TOP Q6 PRN PRN Reason: Rash Polyethylene Glycol (Miralax) 17 gm PO DAILY [facility] Last Admin: 07/15/17 09:13 Dose: 17 gm - Labs Labs: 07/14/17 07:05 07/14/17 07:05 PT 11.4 SECONDS (9.7-12.2) 07/12/17 22:31 INR 1.0 07/12/17 22:31 APTT 31 SECONDS (21-34) 07/12/17 22:31 - Constitutional Appears: Non-toxic, No Acute Distress (obese) - Head Exam Head Exam: NORMAL INSPECTION - Eye Exam Eye Exam: Normal appearance - ENT Exam ENT Exam: Mucous Membranes Moist, Normal Exam - Neck Exam Neck Exam: Normal Inspection - Respiratory Exam Respiratory Exam: Clear to Ausculation Bilateral (distant breath sounds, decreased at bases) - Cardiovascular Exam Cardiovascular Exam: REGULAR RHYTHM - GI/Abdominal Exam GI & Abdominal Exam: Distended, Soft, Diminished Bowel Sounds - Extremities Exam Extremities Exam: Pedal Edema (chronic stasis, warm ) Assessment and Plan (1) Cellulitis of extremity Status: Acute (2) ESRD (end stage renal disease) Status: Acute (3) Diabetes Status: Acute (4) Hypertension Status: Acute - Assessment and Plan (Free Text) Assessment: hd today tts, 3K bath bp acceptable antibiotics
[2017-07-15 15:09] LABS: BASO % 0.1 % (0.0-2.0); EOS # 0.4 K/uL (0.0-0.7); EOS % 2.7 % (0.0-4.0); HEMATOCRIT 28.7 % (35.0-51.0); LYMPH % 7.1 % (20.0-40.0); MEAN CELL VOLUME 75.9 fL (80.0-94.0); MEAN CORPUSCULAR HEMOGLOBIN 24.7 pg (27.0-31.0); MEAN CORPUSCULAR HGB CONC 32.5 g/dL (33.0-37.0); MONO # 0.9 K/uL (0.0-0.8); MONO % 6.5 % (0.0-10.0); PLATELET COUNT 249 K/uL (130-400); RED CELL DISTRIBUTION WIDTH 17.4 % (11.5-14.5); WHITE BLOOD COUNT 13.7 K/uL (4.8-10.8)
[2017-07-15 15:19] LABS: POTASSIUM 3.6 mmol/L (3.6-5.2)
[2017-07-15 15:21] LABS: BILIRUBIN,TOTAL 0.7 mg/dL (0.2-1.3); TOTAL PROTEIN 7.9 g/dL (6.3-8.3)
[2017-07-15 15:22] LABS: CALCIUM 9.3 mg/dl (8.6-10.4)
[2017-07-15 15:25] LABS: ALB/GLOB RATIO 0.8 (1.0-2.1)
[2017-07-15 15:29] LABS: EOSINOPHIL 8 % (0-4); NEUTROPHIL 76 % (50-75); TOTAL CELLS COUNTED 100
[2017-07-15] MEDS: EPOETIN ALFA 4,000 UNIT/ML ML Dialysis IV SCH (16:33)
--- NOTE | 2017-07-15 16:33 | CP.PCM.PN ---
Subjective - Date & Time of Evaluation Date of Evaluation: 07/15/17 Time of Evaluation: 04:05 - Subjective Subjective: dictated Objective - Vital Signs/Intake and Output Vital Signs (last 24 hours): Temp Pulse Resp BP Pulse Ox 98.5 F 74 20 113/62 97 07/15/17 15:05 07/15/17 15:05 07/15/17 15:05 07/15/17 15:05 07/15/17 08:00 Intake and Output: 07/15/17 07/15/17 06:59 18:59 Intake Total 750 500 Output Total 600 400 Balance 150 100 - Medications Medications: Current Medications Acetaminophen (Tylenol 325mg Tab) 650 mg PO Q6 PRN PRN Reason: Pain, Mild (1-3) Albuterol/Ipratropium (Duoneb 3 Mg/0.5 Mg (3 Ml) Ud) 3 ml INH RQ6 PRN PRN Reason: Shortness of Breath Epoetin Ventura (Procrit) 4,000 unit IV TTS [facility] Last Admin: 07/13/17 15:40 Dose: 4,000 unit Famotidine (Pepcid) 20 mg PO DAILY [facility] Last Admin: 07/15/17 09:13 Dose: 20 mg Heparin Sodium (Porcine) (Heparin) 5,000 units SC Q12 [facility] Last Admin: 07/15/17 09:13 Dose: 5,000 units Heparin Sodium (Porcine) (Heparin) 2,000 units IVP TTS [facility] Hydromorphone HCl (Dilaudid) 1 mg IVP Q4H PRN PRN Reason: Pain, severe (8-10) Last Admin: 07/15/17 13:17 Dose: 1 mg Aztreonam 2 gm/ Sodium (Chloride) 100 mls @ 200 mls/hr IVPB Q24H [facility] Last Admin: 07/15/17 03:24 Dose: 200 mls/hr Clindamycin Phosphate 600 mg/ (Sodium Chloride) 54 mls @ 100 mls/hr IVPB Q8H [facility] Last Admin: 07/15/17 14:45 Dose: Not Given Nystatin (Nystop Topical Powder) 0 gm TOP Q6 PRN PRN Reason: Rash Polyethylene Glycol (Miralax) 17 gm PO DAILY [facility] Last Admin: 07/15/17 09:13 Dose: 17 gm Tramadol HCl (Ultram) 50 mg PO Q6H PRN PRN Reason: Pain, severe (8-10) - Labs Labs: 07/15/17 15:04 07/15/17 15:04 PT 11.4 SECONDS (9.7-12.2) 07/12/17 22:31 INR 1.0 07/12/17 22:31 APTT 31 SECONDS (21-34) 07/12/17 22:31
--- NOTE | 2017-07-15 18:57 | PN ---
DATE: SUBJECTIVE: The patient was seen today. He says he is feeling little better. However, he says his right foot is swollen and he is on IV antibiotics. He said he bumped into. He says people are hating into it, which was his remark, so I told him to elevate this today and then we will see from there and I will monitor. He is already on antibiotics. PHYSICAL EXAMINATION: VITAL SIGNS: T-max is 98.5, pulse is 74, blood pressure 113/62, respirations are 20. HEENT: Head is atraumatic normocephalic. NECK: Supple. LUNGS: Clear. HEART: S1 and S2 is regular. He is morbidly obese. ABDOMEN: Soft, flabby, nontender. EXTREMITIES: Right thigh has no drainage anteriorly and decreasing warmth, however, he does have several folds of skin on his thigh as well as legs as he suffers from chronic lymphedema. The right foot appears swollen likely the second toe and the whole foot is exceptionally swollen. Left leg also has chronic lymphedema. LABORATORY DATA: White count today is 13.7, hemoglobin is 9.3, hematocrit 28.7, platelet count is 239. His decreasing BUN is 67, creatinine is 3.5. He is on dialysis and microwise cultures have been all negative. Blood cultures, there were four sets done, so that is not a problem and I had ordered lactic acid level, however, I am not able to visualize it on the screen. ASSESSMENT AND PLAN: We will continue present treatment. He is on clindamycin and Azactam and once he is starting to improve, he can probably go home on clindamycin for few days. The patient has cellulitis, chronic lymphedema, end-stage renal disease and sepsis secondary to increased WBC count and he had severe bandemia. Alec Boucher MD
--- NOTE | 2017-07-15 21:23 | CP.PCM.PN ---
<Shin Levy - Last Filed: 07/15/17 21:20> Subjective - Date & Time of Evaluation Date of Evaluation: 07/15/17 Time of Evaluation: 07:50 - Subjective Subjective: PGY-[address] Jiang Patient seen and examined at bedside. Patient reports intermittent pain on the inner right thigh and the posterior popliteal region that will intermittently radiate down to his feet. Described as a burning sensation. Patient denies fevers, chills, headaches, dizziness, chest pain, SOB, abdominal pain, dysuria. Objective - Vital Signs/Intake and Output Vital Signs (last 24 hours): Temp Pulse Resp BP Pulse Ox 97.7 F 72 20 100/52 L 97 07/15/17 15:05 07/15/17 19:10 07/15/17 15:05 07/15/17 19:10 07/15/17 08:00 Intake and Output: 07/15/17 07/16/17 18:59 06:59 Intake Total 500 Output Total 400 Balance 100 - Medications Medications: Current Medications Acetaminophen (Tylenol 325mg Tab) 650 mg PO Q6 PRN PRN Reason: Pain, Mild (1-3) Albuterol/Ipratropium (Duoneb 3 Mg/0.5 Mg (3 Ml) Ud) 3 ml INH RQ6 PRN PRN Reason: Shortness of Breath Epoetin Ventura (Procrit) 4,000 unit IV TTS [facility] Last Admin: 07/15/17 16:33 Dose: 4,000 unit Famotidine (Pepcid) 20 mg PO DAILY [facility] Last Admin: 07/15/17 09:13 Dose: 20 mg Heparin Sodium (Porcine) (Heparin) 5,000 units SC Q12 [facility] Last Admin: 07/15/17 21:10 Dose: 5,000 units Heparin Sodium (Porcine) (Heparin) 2,000 units IVP TTS [facility] Last Admin: 07/15/17 16:32 Dose: 2,000 units Hydromorphone HCl (Dilaudid) 1 mg IVP Q4H PRN PRN Reason: Pain, severe (8-10) Last Admin: 07/15/17 18:05 Dose: 1 mg Aztreonam 2 gm/ Sodium (Chloride) 100 mls @ 200 mls/hr IVPB Q24H [facility] Last Admin: 07/15/17 03:24 Dose: 200 mls/hr Clindamycin Phosphate 600 mg/ (Sodium Chloride) 54 mls @ 100 mls/hr IVPB Q8H [facility] Last Admin: 07/15/17 21:09 Dose: 100 mls/hr Nystatin (Nystop Topical Powder) 0 gm TOP Q6 PRN PRN Reason: Rash Polyethylene Glycol (Miralax) 17 gm PO DAILY [facility] Last Admin: 07/15/17 09:13 Dose: 17 gm Tramadol HCl (Ultram) 50 mg PO Q6H PRN PRN Reason: Pain, severe (8-10) - Labs Labs: 07/15/17 15:04 07/15/17 15:04 PT 11.4 SECONDS (9.7-12.2) 07/12/17 22:31 INR 1.0 07/12/17 22:31 APTT 31 SECONDS (21-34) 07/12/17 22:31 - Constitutional Appears: No Acute Distress - Head Exam Head Exam: ATRAUMATIC, NORMAL INSPECTION, NORMOCEPHALIC - Eye Exam Eye Exam: EOMI (strabismus), PERRL - ENT Exam ENT Exam: Mucous Membranes Moist - Respiratory Exam Respiratory Exam: Clear to Ausculation Bilateral. absent: Rales, Rhonchi, Wheezes - Cardiovascular Exam Cardiovascular Exam: REGULAR RHYTHM, +S1, +S2 - GI/Abdominal Exam GI & Abdominal Exam: Soft, Normal Bowel Sounds. absent: Tenderness - Extremities Exam Additional comments: Significant LE edema bilaterally but Right>left Improving erythema from yesterday noted on inner thigh and posterior knee and leg Not actively draining fluid - Neurological Exam Neurological Exam: Alert, Awake, Oriented x3 - Skin Skin Exam: Dry, Intact, Warm Assessment and Plan - Assessment and Plan (Free Text) Plan: Cellulitis Warm on examination clindamycin 600 mg Q8 IV Aztreonam 2 gm Q24H IVPB nystatin powder for skin folds Dilaudid 1 mg IV Q4 prn severe pain Tramadol 50 mg PO Q6 prn breakthrough pain Tylenol 650 mg Q6 prn mild pain Dr. Sander LOVE consulted, help appreciated Blood cultures negative so far LE duplex negative (07/15/17): One time dose of IV Lasix ordered but was not given due to hemodialysis and subsequent blood pressure ESRD on HD HD on , S renal diet Dr. Mota consulted- help appreciated History of Asthma duonebs prn Prophylactic measure pepcid 20mg daily heparin 5000 q12h physical therapy eval and treatment Added Miralax 17 gm daily Case DW Dr. Adin Levy PGY1 <ApolinarArmandoYuriy M - Last Filed: 07/16/17 17:41> Objective - Vital Signs/Intake and Output Vital Signs (last 24 hours): Temp Pulse Resp BP Pulse Ox 98.0 F 75 20 112/67 95 07/16/17 08:00 07/16/17 08:00 07/16/17 08:00 07/16/17 08:00 07/16/17 08:00 Intake and Output: 07/16/17 07/16/17 06:59 18:59 Intake Total 920 650 Output Total 1400 Balance -480 650 - Medications Medications: Current Medications Acetaminophen (Tylenol 325mg Tab) 650 mg PO Q6 PRN PRN Reason: Pain, Mild (1-3) Albuterol/Ipratropium (Duoneb 3 Mg/0.5 Mg (3 Ml) Ud) 3 ml INH RQ6 PRN PRN Reason: Shortness of Breath Epoetin Ventura (Procrit) 4,000 unit IV TTS [facility] Last Admin: 07/15/17 16:33 Dose: 4,000 unit Famotidine (Pepcid) 20 mg PO DAILY [facility] Last Admin: 07/16/17 10:18 Dose: 20 mg Heparin Sodium (Porcine) (Heparin) 5,000 units SC Q12 [facility] Last Admin: 07/16/17 10:19 Dose: 5,000 units Heparin Sodium (Porcine) (Heparin) 2,000 units IVP TTS [facility] Last Admin: 07/15/17 16:32 Dose: 2,000 units Hydromorphone HCl (Dilaudid) 1 mg IVP Q4H PRN PRN Reason: Pain, severe (8-10) Last Admin: 07/16/17 10:59 Dose: 1 mg Aztreonam 2 gm/ Sodium (Chloride) 100 mls @ 200 mls/hr IVPB Q24H [facility] Last Admin: 07/16/17 02:11 Dose: 200 mls/hr Clindamycin Phosphate 600 mg/ (Sodium Chloride) 54 mls @ 100 mls/hr IVPB Q8H [facility] Last Admin: 07/16/17 13:59 Dose: 100 mls/hr Nystatin (Nystop Topical Powder) 0 gm TOP Q6 PRN PRN Reason: Rash Polyethylene Glycol (Miralax) 17 gm PO DAILY [facility] Last Admin: 07/16/17 10:19 Dose: 17 gm Tramadol HCl (Ultram) 50 mg PO Q6H PRN PRN Reason: Pain, severe (8-10) Last Admin: 07/16/17 08:19 Dose: 50 mg - Labs Labs: 07/16/17 08:36 07/16/17 08:36 PT 11.4 SECONDS (9.7-12.2) 07/12/17 22:31 INR 1.0 07/12/17 22:31 APTT 31 SECONDS (21-34) 07/12/17 22:31 Attending/Attestation - Attestation I have personally seen and examined this patient.: Yes I have fully participated in the care of the patient.: Yes I have reviewed all pertinent clinical information, including history, physical exam and plan: Yes Notes (Text): 07/16/17 16:39 Patient was seen and examined at bedside with the resident. Complains of right foot swelling. We will keep the foot elevated Continue IV antibiotics Discussed the plan of care with the resident and agree with the assessment and documented by the resident.
[2017-07-16] MEDS: HYDROmorphone 1 mg/ml ISec IVP PRN ×5 (02:05→21:40)
[2017-07-16] MEDS: Aztreonam 2 GM in Sodium Chloride 0.9% 100 ML IVPB SCH (02:11)
[2017-07-16 08:51] LABS: BASO % 0.4 % (0.0-2.0); EOS # 0.3 K/uL (0.0-0.7); EOS % 3.3 % (0.0-4.0); HEMATOCRIT 28.5 % (35.0-51.0); LYMPH # 0.8 K/uL (1.0-4.3); LYMPH % 7.7 % (20.0-40.0); MEAN CELL VOLUME 76.7 fL (80.0-94.0); MEAN CORPUSCULAR HEMOGLOBIN 24.3 pg (27.0-31.0); MEAN CORPUSCULAR HGB CONC 31.7 g/dL (33.0-37.0); MONO # 0.9 K/uL (0.0-0.8); MONO % 8.8 % (0.0-10.0); PLATELET COUNT 268 K/uL (130-400); RED CELL DISTRIBUTION WIDTH 17.3 % (11.5-14.5); WHITE BLOOD COUNT 10.7 K/uL (4.8-10.8)
[2017-07-16 09:03] LABS: POTASSIUM 3.7 mmol/L (3.6-5.2)
[2017-07-16 09:05] LABS: BILIRUBIN,TOTAL 0.6 mg/dL (0.2-1.3)
[2017-07-16 09:06] LABS: ALB/GLOB RATIO 0.8 (1.0-2.1); CALCIUM 9.4 mg/dl (8.6-10.4); TOTAL PROTEIN 7.6 g/dL (6.3-8.3)
--- NOTE | 2017-07-16 09:16 | CP.PCM.PN ---
Subjective - Date & Time of Evaluation Date of Evaluation: 07/16/17 Time of Evaluation: 09:15 - Subjective Subjective: seen and examined improved rt leg swelling hd yesterday, unremarkable Objective - Vital Signs/Intake and Output Vital Signs (last 24 hours): Temp Pulse Resp BP Pulse Ox 98.0 F 75 20 112/67 95 07/16/17 08:00 07/16/17 08:00 07/16/17 08:00 07/16/17 08:00 07/16/17 08:00 Intake and Output: 07/16/17 07/16/17 06:59 18:59 Intake Total 920 Output Total 1400 Balance -480 - Medications Medications: Current Medications Acetaminophen (Tylenol 325mg Tab) 650 mg PO Q6 PRN PRN Reason: Pain, Mild (1-3) Albuterol/Ipratropium (Duoneb 3 Mg/0.5 Mg (3 Ml) Ud) 3 ml INH RQ6 PRN PRN Reason: Shortness of Breath Epoetin Ventura (Procrit) 4,000 unit IV TTS [facility] Last Admin: 07/15/17 16:33 Dose: 4,000 unit Famotidine (Pepcid) 20 mg PO DAILY [facility] Last Admin: 07/15/17 09:13 Dose: 20 mg Heparin Sodium (Porcine) (Heparin) 5,000 units SC Q12 [facility] Last Admin: 07/15/17 21:10 Dose: 5,000 units Heparin Sodium (Porcine) (Heparin) 2,000 units IVP TTS [facility] Last Admin: 07/15/17 16:32 Dose: 2,000 units Hydromorphone HCl (Dilaudid) 1 mg IVP Q4H PRN PRN Reason: Pain, severe (8-10) Last Admin: 07/16/17 06:41 Dose: 1 mg Aztreonam 2 gm/ Sodium (Chloride) 100 mls @ 200 mls/hr IVPB Q24H [facility] Last Admin: 07/16/17 02:11 Dose: 200 mls/hr Clindamycin Phosphate 600 mg/ (Sodium Chloride) 54 mls @ 100 mls/hr IVPB Q8H [facility] Last Admin: 07/16/17 06:42 Dose: 100 mls/hr Nystatin (Nystop Topical Powder) 0 gm TOP Q6 PRN PRN Reason: Rash Polyethylene Glycol (Miralax) 17 gm PO DAILY [facility] Last Admin: 07/15/17 09:13 Dose: 17 gm Tramadol HCl (Ultram) 50 mg PO Q6H PRN PRN Reason: Pain, severe (8-10) Last Admin: 07/16/17 08:19 Dose: 50 mg - Labs Labs: 07/16/17 08:36 07/16/17 08:36 PT 11.4 SECONDS (9.7-12.2) 07/12/17 22:31 INR 1.0 07/12/17 22:31 APTT 31 SECONDS (21-34) 07/12/17 22:31 - Constitutional Appears: No Acute Distress, Chronically Ill (obese) - Head Exam Head Exam: NORMAL INSPECTION - Eye Exam Eye Exam: Normal appearance - ENT Exam ENT Exam: Mucous Membranes Moist, Normal Exam - Neck Exam Neck Exam: Normal Inspection - Respiratory Exam Respiratory Exam: NORMAL BREATHING PATTERN (distant breath sounds) - Cardiovascular Exam Cardiovascular Exam: REGULAR RHYTHM, RRR - GI/Abdominal Exam GI & Abdominal Exam: Distended, Soft, Diminished Bowel Sounds - Extremities Exam Extremities Exam: Pedal Edema (b/l stasis. lymphedema. ) - Neurological Exam Neurological Exam: Alert, Awake, Oriented x3 Assessment and Plan (1) Cellulitis of extremity Status: Acute (2) ESRD (end stage renal disease) Status: Acute (3) Diabetes Status: Acute (4) Hypertension Status: Acute - Assessment and Plan (Free Text) Assessment: maintain hd tts bp aceptable migue w/ hd iv antibiotics per ID
[2017-07-16 09:42] LABS: EOSINOPHIL 2 % (0-4); NEUTROPHIL 78 % (50-75); TOTAL CELLS COUNTED 100
[2017-07-16] MEDS: POLYETHYLENE GLYCOL 3350 17 GM/Dose PACKET PO SCH (10:19)
--- NOTE | 2017-07-16 15:31 | CP.PCM.PN ---
<Shin Levy - Last Filed: 07/16/17 15:32> Subjective - Date & Time of Evaluation Date of Evaluation: 07/16/17 Time of Evaluation: 07:00 - Subjective Subjective: PGY-[address] Adin Jiang Patient seen and examined at bedside. Patient reports improvement from yesterday in terms of the pain and redness. Patient reports having a bowel movement earlier this morning. Patient denies fevers, chills, headache, dizziness, chest pain, SOB, abdominal pain, dysuria. Objective - Vital Signs/Intake and Output Vital Signs (last 24 hours): Temp Pulse Resp BP Pulse Ox 98.0 F 75 20 112/67 95 07/16/17 08:00 07/16/17 08:00 07/16/17 08:00 07/16/17 08:00 07/16/17 08:00 Intake and Output: 07/16/17 07/16/17 06:59 18:59 Intake Total 920 650 Output Total 1400 Balance -480 650 - Medications Medications: Current Medications Acetaminophen (Tylenol 325mg Tab) 650 mg PO Q6 PRN PRN Reason: Pain, Mild (1-3) Albuterol/Ipratropium (Duoneb 3 Mg/0.5 Mg (3 Ml) Ud) 3 ml INH RQ6 PRN PRN Reason: Shortness of Breath Epoetin [place] (Procrit) 4,000 unit IV TTS [facility] Last Admin: 07/15/17 16:33 Dose: 4,000 unit Famotidine (Pepcid) 20 mg PO DAILY [facility] Last Admin: 07/16/17 10:18 Dose: 20 mg Heparin Sodium (Porcine) (Heparin) 5,000 units SC Q12 [facility] Last Admin: 07/16/17 10:19 Dose: 5,000 units Heparin Sodium (Porcine) (Heparin) 2,000 units IVP TTS [facility] Last Admin: 07/15/17 16:32 Dose: 2,000 units Hydromorphone HCl (Dilaudid) 1 mg IVP Q4H PRN PRN Reason: Pain, severe (8-10) Last Admin: 07/16/17 10:59 Dose: 1 mg Aztreonam 2 gm/ Sodium (Chloride) 100 mls @ 200 mls/hr IVPB Q24H [facility] Last Admin: 07/16/17 02:11 Dose: 200 mls/hr Clindamycin Phosphate 600 mg/ (Sodium Chloride) 54 mls @ 100 mls/hr IVPB Q8H [facility] Last Admin: 07/16/17 13:59 Dose: 100 mls/hr Nystatin (Nystop Topical Powder) 0 gm TOP Q6 PRN PRN Reason: Rash Polyethylene Glycol (Miralax) 17 gm PO DAILY [facility] Last Admin: 07/16/17 10:19 Dose: 17 gm Tramadol HCl (Ultram) 50 mg PO Q6H PRN PRN Reason: Pain, severe (8-10) Last Admin: 07/16/17 08:19 Dose: 50 mg - Labs Labs: 07/16/17 08:36 07/16/17 08:36 PT 11.4 SECONDS (9.7-12.2) 07/12/17 22:31 INR 1.0 07/12/17 22:31 APTT 31 SECONDS (21-34) 07/12/17 22:31 - Constitutional Appears: No Acute Distress - Head Exam Head Exam: ATRAUMATIC, NORMAL INSPECTION, NORMOCEPHALIC - Eye Exam Eye Exam: EOMI (strabismus), PERRL - Respiratory Exam Respiratory Exam: Clear to Ausculation Bilateral. absent: Rales, Rhonchi, Wheezes - Cardiovascular Exam Cardiovascular Exam: REGULAR RHYTHM, +S1, +S2 - GI/Abdominal Exam GI & Abdominal Exam: Soft, Normal Bowel Sounds. absent: Tenderness - Extremities Exam Additional comments: Significant LE edema bilaterally but Right>left Improving erythema from yesterday noted on inner thigh and posterior knee and leg Not actively draining fluid - Neurological Exam Neurological Exam: Alert, Awake, Oriented x3 Assessment and Plan - Assessment and Plan (Free Text) Plan: Cellulitis Warm on examination clindamycin 600 mg Q8 IV Aztreonam 2 gm Q24H IVPB nystatin powder for skin folds Dilaudid 1 mg IV Q4 prn severe pain Tramadol 50 mg PO Q6 prn breakthrough pain Tylenol 650 mg Q6 prn mild pain Dr. Sander LOVE consulted, help appreciated Blood cultures negative so far LE duplex negative (07/15/17): One time dose of IV Lasix ordered but was not given due to hemodialysis and subsequent blood pressure ESRD on HD HD on , renal diet Dr. Mota consulted- help appreciated History of Asthma duonebs prn Prophylactic measure pepcid 20mg daily heparin 5000 q12h physical therapy eval and treatment Added Miralax 17 gm daily When discharging him, Dr. Boucher recommends putting Mr. Oliva on Clindamycin 300 mg PO Q8H for 5 days along with Bacid Acidophilus. Case DW Dr. Adin Levy PGY1 <Yuriy Jiang - Last Filed: 07/17/17 09:41> Objective - Vital Signs/Intake and Output Vital Signs (last 24 hours): Temp Pulse Resp BP Pulse Ox 98.4 F 72 20 124/65 96 07/17/17 08:00 07/17/17 08:00 07/17/17 08:00 07/17/17 08:00 07/17/17 08:00 - Medications Medications: Current Medications Acetaminophen (Tylenol 325mg Tab) 650 mg PO Q6 PRN PRN Reason: Pain, Mild (1-3) Albuterol/Ipratropium (Duoneb 3 Mg/0.5 Mg (3 Ml) Ud) 3 ml INH RQ6 PRN PRN Reason: Shortness of Breath Epoetin [place] (Procrit) 4,000 unit IV TTS [facility] Last Admin: 07/15/17 16:33 Dose: 4,000 unit Famotidine (Pepcid) 20 mg PO DAILY [facility] Last Admin: 07/16/17 10:18 Dose: 20 mg Heparin Sodium (Porcine) (Heparin) 5,000 units SC Q12 [facility] Last Admin: 07/16/17 21:35 Dose: 5,000 units Heparin Sodium (Porcine) (Heparin) 2,000 units IVP TTS [facility] Last Admin: 07/15/17 16:32 Dose: 2,000 units Hydromorphone HCl (Dilaudid) 1 mg IVP Q4H PRN PRN Reason: Pain, severe (8-10) Last Admin: 07/17/17 05:57 Dose: 1 mg Aztreonam 2 gm/ Sodium (Chloride) 100 mls @ 200 mls/hr IVPB Q24H [facility] Last Admin: 07/17/17 03:18 Dose: 200 mls/hr Clindamycin Phosphate 600 mg/ (Sodium Chloride) 54 mls @ 100 mls/hr IVPB Q8H [facility] Last Admin: 07/17/17 05:56 Dose: 100 mls/hr Nystatin (Nystop Topical Powder) 0 gm TOP Q6 PRN PRN Reason: Rash Polyethylene Glycol (Miralax) 17 gm PO DAILY [facility] Last Admin: 07/16/17 10:19 Dose: 17 gm Tramadol HCl (Ultram) 50 mg PO Q6H PRN PRN Reason: Pain, severe (8-10) Last Admin: 07/16/17 08:19 Dose: 50 mg - Labs Labs: 07/16/17 08:36 07/16/17 08:36 PT 11.4 SECONDS (9.7-12.2) 07/12/17 22:31 INR 1.0 07/12/17 22:31 APTT 31 SECONDS (21-34) 07/12/17 22:31 Attending/Attestation - Attestation I have personally seen and examined this patient.: Yes I have fully participated in the care of the patient.: Yes I have reviewed all pertinent clinical information, including history, physical exam and plan: Yes Notes (Text): 07/17/17 09:41 Patient was seen and examined at bedside with the resident. Patient to states that leg swelling and pain has improved We will continue IV antibiotics Discharge planning likely in the morning if the patient is medically stable I discussed the plan of care with the resident and agree with the assessment and plan documented.
--- NOTE | 2017-07-16 16:33 | CP.PCM.PN ---
Subjective - Date & Time of Evaluation Date of Evaluation: 07/16/17 Time of Evaluation: 03:40 - Subjective Subjective: dictatd Objective - Vital Signs/Intake and Output Vital Signs (last 24 hours): Temp Pulse Resp BP Pulse Ox 98.0 F 75 20 112/67 95 07/16/17 08:00 07/16/17 08:00 07/16/17 08:00 07/16/17 08:00 07/16/17 08:00 Intake and Output: 07/16/17 07/16/17 06:59 18:59 Intake Total 920 650 Output Total 1400 Balance -480 650 - Medications Medications: Current Medications Acetaminophen (Tylenol 325mg Tab) 650 mg PO Q6 PRN PRN Reason: Pain, Mild (1-3) Albuterol/Ipratropium (Duoneb 3 Mg/0.5 Mg (3 Ml) Ud) 3 ml INH RQ6 PRN PRN Reason: Shortness of Breath Epoetin [place] (Procrit) 4,000 unit IV TTS [facility] Last Admin: 07/15/17 16:33 Dose: 4,000 unit Famotidine (Pepcid) 20 mg PO DAILY [facility] Last Admin: 07/16/17 10:18 Dose: 20 mg Heparin Sodium (Porcine) (Heparin) 5,000 units SC Q12 [facility] Last Admin: 07/16/17 10:19 Dose: 5,000 units Heparin Sodium (Porcine) (Heparin) 2,000 units IVP TTS [facility] Last Admin: 07/15/17 16:32 Dose: 2,000 units Hydromorphone HCl (Dilaudid) 1 mg IVP Q4H PRN PRN Reason: Pain, severe (8-10) Last Admin: 07/16/17 10:59 Dose: 1 mg Aztreonam 2 gm/ Sodium (Chloride) 100 mls @ 200 mls/hr IVPB Q24H [facility] Last Admin: 07/16/17 02:11 Dose: 200 mls/hr Clindamycin Phosphate 600 mg/ (Sodium Chloride) 54 mls @ 100 mls/hr IVPB Q8H [facility] Last Admin: 07/16/17 13:59 Dose: 100 mls/hr Nystatin (Nystop Topical Powder) 0 gm TOP Q6 PRN PRN Reason: Rash Polyethylene Glycol (Miralax) 17 gm PO DAILY [facility] Last Admin: 07/16/17 10:19 Dose: 17 gm Tramadol HCl (Ultram) 50 mg PO Q6H PRN PRN Reason: Pain, severe (8-10) Last Admin: 07/16/17 08:19 Dose: 50 mg - Labs Labs: 07/16/17 08:36 07/16/17 08:36 PT 11.4 SECONDS (9.7-12.2) 07/12/17 22:31 INR 1.0 07/12/17 22:31 APTT 31 SECONDS (21-34) 07/12/17 22:31
[2017-07-17] MEDS: HYDROmorphone 1 mg/ml ISec IVP PRN ×3 (01:40→11:13)
--- NOTE | 2017-07-17 01:40 | PN ---
DATE: SUBJECTIVE: The patient is a awake and alert. He denies any pain. He says he is feeling little better. His right foot still remains swollen. He does have a lot of falls, warmth and redness decreasing on his thighs, but unable to see the backside. He denies fever, chills, headaches. No chest pain. He does not want to go to rehab, so will be monitored here for now as he is morbidly obese with multiple falls and needs some rehab. PHYSICAL EXAMINATION VITAL SIGNS: T-max is 97.9, pulse 74, blood pressure 127/68. HEENT: Head is atraumatic. NECK: Supple. LUNGS: Clear. No crackles or rales present. HEART: S1 and S2 is regular. ABDOMEN: Flabby. EXTREMITIES: Bilateral lymphedema and multiple falls. LABORATORY DATA: His white count dropped from 13.7 to 10.7, platelets are 268. The bands are 1 now, came down; he had 40% bandemia, came in the sepsis and cellulitis. He is a renal patient and blood cultures are negative. We could not do any cultures on the drainage as it stopped when he came in. IMPRESSION: He has cellulitis of the right thigh, he is morbidly obese, he has chronic lymphedema, end-stage renal disease and we will follow and to continue clindamycin at this time IV and Azactam and once he goes home we can change it to p.o. 300 mg four times a day and will depend on when he goes home. I do not want to give clindamycin for more than 5 to 7 days, as he is receiving it here from [facility], it is already fourth day of clindamycin. Alec Boucher MD
[2017-07-17] MEDS: Aztreonam 2 GM in Sodium Chloride 0.9% 100 ML IVPB SCH (03:18)
[2017-07-17 08:57] VITALS: BP 124/65; TEMP 98.4; O2SAT 96
[2017-07-17] MEDS: POLYETHYLENE GLYCOL 3350 17 GM/Dose PACKET PO SCH ×2 (10:11→11:21)
--- NOTE | 2017-07-17 10:57 | CP.PCM.PN ---
Subjective - Date & Time of Evaluation Date of Evaluation: 07/17/17 Time of Evaluation: 09:45 - Subjective Subjective: seen on HD no complaint right leg improved no sob good appetite no fever no rash no abdominal pain no joint pain no cough no headache no pruritis post exam, dialysis nurse indicated that JOSE R has clots and patient unable to receive treatment today Objective - Vital Signs/Intake and Output Vital Signs (last 24 hours): Temp Pulse Resp BP Pulse Ox 98.4 F 72 20 124/65 96 07/17/17 08:00 07/17/17 08:00 07/17/17 08:00 07/17/17 08:00 07/17/17 08:00 - Medications Medications: Current Medications Acetaminophen (Tylenol 325mg Tab) 650 mg PO Q6 PRN PRN Reason: Pain, Mild (1-3) Albuterol/Ipratropium (Duoneb 3 Mg/0.5 Mg (3 Ml) Ud) 3 ml INH RQ6 PRN PRN Reason: Shortness of Breath Epoetin [place] (Procrit) 4,000 unit IV TTS [facility] Last Admin: 07/15/17 16:33 Dose: 4,000 unit Famotidine (Pepcid) 20 mg PO DAILY [facility] Last Admin: 07/17/17 10:11 Dose: Not Given Heparin Sodium (Porcine) (Heparin) 5,000 units SC Q12 [facility] Last Admin: 07/17/17 10:11 Dose: Not Given Heparin Sodium (Porcine) (Heparin) 2,000 units IVP TTS [facility] Last Admin: 07/15/17 16:32 Dose: 2,000 units Hydromorphone HCl (Dilaudid) 1 mg IVP Q4H PRN PRN Reason: Pain, severe (8-10) Last Admin: 07/17/17 05:57 Dose: 1 mg Aztreonam 2 gm/ Sodium (Chloride) 100 mls @ 200 mls/hr IVPB Q24H [facility] Last Admin: 07/17/17 03:18 Dose: 200 mls/hr Clindamycin Phosphate 600 mg/ (Sodium Chloride) 54 mls @ 100 mls/hr IVPB Q8H [facility] Last Admin: 07/17/17 05:56 Dose: 100 mls/hr Nystatin (Nystop Topical Powder) 0 gm TOP Q6 PRN PRN Reason: Rash Polyethylene Glycol (Miralax) 17 gm PO DAILY [facility] Last Admin: 07/17/17 10:11 Dose: Not Given Tramadol HCl (Ultram) 50 mg PO Q6H PRN PRN Reason: Pain, severe (8-10) Last Admin: 07/16/17 08:19 Dose: 50 mg - Labs Labs: 07/16/17 08:36 07/16/17 08:36 PT 11.4 SECONDS (9.7-12.2) 07/12/17 22:31 INR 1.0 07/12/17 22:31 APTT 31 SECONDS (21-34) 07/12/17 22:31 - Constitutional Appears: Non-toxic, No Acute Distress - Eye Exam Eye Exam: EOMI, Normal appearance - ENT Exam ENT Exam: Mucous Membranes Moist - Neck Exam Neck Exam: Full ROM. absent: Lymphadenopathy - Respiratory Exam Respiratory Exam: Clear to Ausculation Bilateral. absent: Accessory Muscle Use - Cardiovascular Exam Cardiovascular Exam: REGULAR RHYTHM. absent: Rubs - GI/Abdominal Exam GI & Abdominal Exam: Soft, Normal Bowel Sounds. absent: Tenderness - Extremities Exam Additional comments: chronic cellulitic changes in legs - Neurological Exam Neurological Exam: Alert, Oriented x3 Assessment and Plan - Assessment and Plan (Free Text) Assessment: AB per ID access revision or catheter on Wednesday in hospital
[2017-07-17 11:11] VITALS: PULSE 84
[2017-07-17] MEDS ORDERED: Pneumococcal 23-Valent Vaccine IM ONE (11:28)
--- NOTE | 2017-07-17 21:45 | CP.PCM.DIS ---
<Andres Florentino H - Last Filed: 07/17/17 21:51> Provider - Provider Date of Admission: 07/13/17 16:52 Attending physician: Yuriy Jiang MD Primary care physician: Dr. Codey Boucher Time Spent in preparation of Discharge (in minutes): 45 Hospital Course - Lab Results Lab Results: Most Recent Lab Values WBC 10.7 K/uL (4.8-10.8) 07/16/17 08:36 RBC 3.71 Mil/uL (4.40-5.90) L 07/16/17 08:36 Hgb 9.0 g/dL (12.0-18.0) L 07/16/17 08:36 Hct 28.5 % (35.0-51.0) L 07/16/17 08:36 MCV 76.7 fL (80.0-94.0) L 07/16/17 08:36 MCH 24.3 pg (27.0-31.0) L 07/16/17 08:36 MCHC 31.7 g/dL (33.0-37.0) L 07/16/17 08:36 RDW 17.3 % (11.5-14.5) H 07/16/17 08:36 Plt Count 268 K/uL (130-400) 07/16/17 08:36 MPV 8.0 fL (7.2-11.7) 07/16/17 08:36 Neut % (Auto) 79.8 % (50.0-75.0) H 07/16/17 08:36 Lymph % (Auto) 7.7 % (20.0-40.0) L 07/16/17 08:36 [place] % (Auto) 8.8 % (0.0-10.0) 07/16/17 08:36 Eos % (Auto) 3.3 % (0.0-4.0) 07/16/17 08:36 Baso % (Auto) 0.4 % (0.0-2.0) 07/16/17 08:36 Neut # 8.5 K/uL (1.8-7.0) H 07/16/17 08:36 Lymph # 0.8 K/uL (1.0-4.3) L 07/16/17 08:36 [place] # 0.9 K/uL (0.0-0.8) H 07/16/17 08:36 Eos # 0.3 K/uL (0.0-0.7) 07/16/17 08:36 Baso # 0.0 K/uL (0.0-0.2) 07/16/17 08:36 Neutrophils % (Manual) 78 % (50-75) H 07/16/17 08:36 Band Neutrophils % 1 % (0-2) 07/16/17 08:36 Lymphocytes % (Manual) 8 % (20-40) L 07/16/17 08:36 Monocytes % (Manual) 11 % (0-10) H 07/16/17 08:36 Eosinophils % (Manual) 2 % (0-4) 07/16/17 08:36 Basophils % (Manual) 1 % (0-2) 07/14/17 07:05 Toxic Granulation Present 07/14/17 07:05 Platelet Estimate Normal (NORMAL) 07/16/17 08:36 Hypochromasia (manual) Slight 07/16/17 08:36 Poikilocytosis (manual Slight 07/16/17 08:36 Anisocytosis (manual) Slight 07/16/17 08:36 Target Cells Slight 07/16/17 08:36 Ovalocytes Slight 07/16/17 08:36 PT 11.4 SECONDS (9.7-12.2) 07/12/17 22:31 INR 1.0 07/12/17 22:31 APTT 31 SECONDS (21-34) 07/12/17 22:31 Sodium 137 mmol/L (132-148) 07/16/17 08:36 Potassium 3.7 mmol/L (3.6-5.2) 07/16/17 08:36 Chloride 95 mmol/L (98-107) L 07/16/17 08:36 Carbon Dioxide 30 mmol/L (22-30) 07/16/17 08:36 Anion Gap 16 (10-20) 07/16/17 08:36 BUN 48 mg/dL (9-20) H 07/16/17 08:36 Creatinine 3.0 MG/DL (0.8-1.5) H 07/16/17 08:36 Est GFR ( Amer) 27 07/16/17 08:36 Est GFR (Non-Af Amer) 22 07/16/17 08:36 Random Glucose 116 mg/dL (75-110) H 07/16/17 08:36 Lactic Acid 1.3 mmol/L (0.7-2.1) 07/13/17 15:38 Calcium 9.4 mg/dl (8.6-10.4) 07/16/17 08:36 Total Bilirubin 0.6 mg/dL (0.2-1.3) 07/16/17 08:36 AST 14 U/L (17-59) L D 07/16/17 08:36 ALT 31 U/L (21-72) 07/16/17 08:36 Alkaline Phosphatase 128 U/L (38-126) H 07/16/17 08:36 Total Protein 7.6 g/dL (6.3-8.3) 07/16/17 08:36 Albumin 3.3 g/dL (3.5-5.0) L 07/16/17 08:36 Globulin 4.3 gm/dL (2.2-3.9) H 07/16/17 08:36 Albumin/Globulin Ratio 0.8 (1.0-2.1) L 07/16/17 08:36 Hep Bs Antigen Negative (NEGATIVE) 07/13/17 15:37 Hep Bs Antibody Negative (NEGATIVE) 07/13/17 15:37 - Hospital Course Hospital Course: Patient is a 51 year old male with past medical history ESRD on HD, chronic lymph edema, asthma/ bronchitis who presents to the ED with complaint of right leg swelling and pain. Patient states that he is prone to cellulitis due to his body habitus and that he cannot see the skin on the back of his legs well. Patient states that this past weekend he felt that his right thigh was weeping clear fluid but was not painful. Patient states that earlier on 07/12 he tried to take a nap but woke up at 6PM with pain in his right thigh. Patient states he felt his thigh was firm and warm, like a balloon was inside his leg. Patient states he did not try to see his PMD for this issue and called the ambulance to bring him to the ED. Patient states in the past when he has had this issue the cellulitis quickly worsens. Patient complaining of chills but denies fever. Patient without other complaints at this time. Hospital course: Patient was admitted 07/13 for cellulitis and lower extremity edma. He was given IV antibiotics and discharged home with PO antibiotics along with a script for a probiotic. Nephrology was consulted due to patients ESRD and infectious disease was consulted as well. Lower extremity Doppler preformed. Regular lab work was preformed each while in the hospital please see EMR for lab results and imaging studies as well as cultures. Discharge Plan Patient to be discharged home per Dr. Jiang. Patient will take Clindamycin 300mg every 8 hours for 5 days with probiotic. Patient will need to see his PMD Dr. Alegre after discharge for post hospital follow up and for primary care. Patient will return to the ED if symptoms return or worsen. Discharge Diagnosis Cellulitis Chronic Lymph edma ESRD Asthma - Date & Time of H&P Date of H&P: 07/17/17 Time of H&P: 10:00 Discharge Exam - Head Exam Head Exam: ATRAUMATIC, NORMAL INSPECTION, NORMOCEPHALIC - Eye Exam Pupil Exam: NORMAL ACCOMODATION - Respiratory Exam Respiratory Exam: Clear to PA & Lateral. absent: Rales, Rhonchi, Wheezes - Cardiovascular Exam Cardiovascular Exam: REGULAR RHYTHM, RRR, +S1, +S2. absent: Gallop, Rubs - GI/Abdominal Exam GI & Abdominal Exam: Normal Bowel Sounds, Rebound. absent: Soft, Tenderness - Back Exam Back exam: NORMAL INSPECTION - Psychiatric Exam Psychiatric exam: Normal Affect, Normal Mood - Skin Skin Exam: Normal Color Discharge Plan - Discharge Medications Prescriptions: Clindamycin [Cleocin] 300 mg PO Q8H 5 Days Lactobacillus Acidophilus/Fos [Acidophilus Probiotic Tablet] 1 each PO DAILY # 30 tablet - Follow Up Plan Condition: STABLE Disposition: HOME/ ROUTINE Instructions: Hemodialysis (DC), Cellulitis (DC), Dialysis Diet (DC), End Stage Kidney Disease (DC) Additional Instructions: Patient to be discharged home per Dr. Jiang. Patient will take Clindamycin 300mg every 8 hours for 5 days with probiotic. Patient will need to see his PMD Dr. Alegre after discharge for post hospital follow up and for primary care. Patient will return to the ED if symptoms return or worsen. Referrals: Ivet Alegre MD [Staff Provider] - <Yuriy Jiang - Last Filed: 07/18/17 14:38> Provider - Provider Date of Admission: 07/13/17 16:52 Attending physician: Yuriy Jiang MD Hospital Course - Lab Results Lab Results: Most Recent Lab Values WBC 10.7 K/uL (4.8-10.8) 07/16/17 08:36 RBC 3.71 Mil/uL (4.40-5.90) L 07/16/17 08:36 Hgb 9.0 g/dL (12.0-18.0) L 07/16/17 08:36 Hct 28.5 % (35.0-51.0) L 07/16/17 08:36 MCV 76.7 fL (80.0-94.0) L 07/16/17 08:36 MCH 24.3 pg (27.0-31.0) L 07/16/17 08:36 MCHC 31.7 g/dL (33.0-37.0) L 07/16/17 08:36 RDW 17.3 % (11.5-14.5) H 07/16/17 08:36 Plt Count 268 K/uL (130-400) 07/16/17 08:36 MPV 8.0 fL (7.2-11.7) 07/16/17 08:36 Neut % (Auto) 79.8 % (50.0-75.0) H 07/16/17 08:36 Lymph % (Auto) 7.7 % (20.0-40.0) L 07/16/17 08:36 [place] % (Auto) 8.8 % (0.0-10.0) 07/16/17 08:36 Eos % (Auto) 3.3 % (0.0-4.0) 07/16/17 08:36 Baso % (Auto) 0.4 % (0.0-2.0) 07/16/17 08:36 Neut # 8.5 K/uL (1.8-7.0) H 07/16/17 08:36 Lymph # 0.8 K/uL (1.0-4.3) L 07/16/17 08:36 [place] # 0.9 K/uL (0.0-0.8) H 07/16/17 08:36 Eos # 0.3 K/uL (0.0-0.7) 07/16/17 08:36 Baso # 0.0 K/uL (0.0-0.2) 07/16/17 08:36 Neutrophils % (Manual) 78 % (50-75) H 07/16/17 08:36 Band Neutrophils % 1 % (0-2) 07/16/17 08:36 Lymphocytes % (Manual) 8 % (20-40) L 07/16/17 08:36 Monocytes % (Manual) 11 % (0-10) H 07/16/17 08:36 Eosinophils % (Manual) 2 % (0-4) 07/16/17 08:36 Basophils % (Manual) 1 % (0-2) 07/14/17 07:05 Toxic Granulation Present 07/14/17 07:05 Platelet Estimate Normal (NORMAL) 07/16/17 08:36 Hypochromasia (manual) Slight 07/16/17 08:36 Poikilocytosis (manual Slight 07/16/17 08:36 Anisocytosis (manual) Slight 07/16/17 08:36 Target Cells Slight 07/16/17 08:36 Ovalocytes Slight 07/16/17 08:36 PT 11.4 SECONDS (9.7-12.2) 07/12/17 22:31 INR 1.0 07/12/17 22:31 APTT 31 SECONDS (21-34) 07/12/17 22:31 Sodium 137 mmol/L (132-148) 07/16/17 08:36 Potassium 3.7 mmol/L (3.6-5.2) 07/16/17 08:36 Chloride 95 mmol/L (98-107) L 07/16/17 08:36 Carbon Dioxide 30 mmol/L (22-30) 07/16/17 08:36 Anion Gap 16 (10-20) 07/16/17 08:36 BUN 48 mg/dL (9-20) H 07/16/17 08:36 Creatinine 3.0 MG/DL (0.8-1.5) H 07/16/17 08:36 Est GFR ( Amer) 27 07/16/17 08:36 Est GFR (Non-Af Amer) 22 07/16/17 08:36 Random Glucose 116 mg/dL (75-110) H 07/16/17 08:36 Lactic Acid 1.3 mmol/L (0.7-2.1) 07/13/17 15:38 Calcium 9.4 mg/dl (8.6-10.4) 07/16/17 08:36 Total Bilirubin 0.6 mg/dL (0.2-1.3) 07/16/17 08:36 AST 14 U/L (17-59) L D 07/16/17 08:36 ALT 31 U/L (21-72) 07/16/17 08:36 Alkaline Phosphatase 128 U/L (38-126) H 07/16/17 08:36 Total Protein 7.6 g/dL (6.3-8.3) 07/16/17 08:36 Albumin 3.3 g/dL (3.5-5.0) L 07/16/17 08:36 Globulin 4.3 gm/dL (2.2-3.9) H 07/16/17 08:36 Albumin/Globulin Ratio 0.8 (1.0-2.1) L 07/16/17 08:36 Hep Bs Antigen Negative (NEGATIVE) 07/13/17 15:37 Hep Bs Antibody Negative (NEGATIVE) 07/13/17 15:37 Attending/Attestation - Attestation I have personally seen and examined this patient.: Yes I have fully participated in the care of the patient.: Yes I have reviewed all pertinent clinical information, including history, physical exam and plan: Yes Notes (Text): 07/18/17 14:38 Patient was seen and examined at bedside with the resident Patient appears comfortable and denies any pain in the right leg Swelling and erythema has since resolved Patient has the lymphedema at baseline which is unchanged Patient clear for discharge to home on oral antibiotics Prescriptions provided to the patient I discussed the plan of care with the resident and I agree with the discharge note by the resident
--- NOTE | 2017-07-19 15:00 | VASCLAB ---
PROCEDURE: Lower Extremity Venous Duplex Exam. HISTORY: lymph edema PRIORS: None. TECHNIQUE: Bilateral common femoral, femoral, popliteal and posterior tibial, peroneal and great saphenous veins were evaluated. Flow was assessed with color Doppler, compressibility, assessment of phasic flow and augmentation response. Report prepared by SCARLET Moreno, RVT FINDINGS: RIGHT: 1. Common Femoral Vein: 1.1. Compressibility - Fully compressible: Thrombus - None : Flow - Phasic: Augmentation -Normal: Reflux - None. 2. Femoral Vein: 2.1. Compressibility - Fully compressible: Thrombus - None : Flow - Phasic: Augmentation -Normal: Reflux - None. 3. Popliteal Vein: 3.1. Compressibility - Fully compressible: Thrombus - None : Flow - Phasic: Augmentation -Normal: Reflux - None. 4. Posterior Tibial Vein: 4.1. Compressibility - : Thrombus - : Flow - : Augmentation -: Reflux - . 5. Peroneal Vein: 5.1. Compressibility - : Thrombus - : Flow - : Augmentation -: Reflux - . 6. Great Saphenous Vein: 6.1. Compressibility - Fully compressible: Thrombus - None: Flow - Phasic: Augmentation - Normal: Reflux - None. LEFT: 1. Common Femoral Vein: 1.1. Compressibility - Fully compressible: Thrombus - None: Flow - Phasic: Augmentation -Normal: Reflux - None. 2. Femoral Vein: 2.1. Compressibility - Fully compressible: Thrombus - None: Flow - Phasic: Augmentation -Normal: Reflux - None. 3. Popliteal Vein: 3.1. Compressibility - Fully compressible: Thrombus - None : Flow - Phasic: Augmentation -Normal: Reflux - None. 4. Posterior Tibial Vein: 4.1. Compressibility - : Thrombus - : Flow - : Augmentation -: Reflux - . 5. Peroneal Vein: 5.1. Compressibility - : Thrombus - : Flow - : Augmentation -: Reflux - . 6. Great Saphenous Vein: 6.1. Compressibility - Fully compressible: Thrombus - None: Flow - Phasic: Augmentation - Normal: Reflux - None. OTHER FINDINGS: Due to swelling in the calves, bilateral peroneal and posterior tibial vein are not visualized. Technically limited study due to patient body habitus. IMPRESSION: Right: No evidence of deep or superficial vein thrombosis of the right lower extremity. Normal valve function noted of the right side. Left: No evidence of deep or superficial vein thrombosis of the left lower extremity. Normal valve function noted of the left side.
== END 2017-07-17 13:50 | disposition home health service (06) | DRG 871 ==
LOC: C.ER 20:52 → SUPCPDRO 20:52 → INTOOBSV 07-13 03:15 → C.9E 07-13 03:15 → C.3T 07-13 06:44 → OBSVTOIN 07-13 16:52
PROVIDERS: ADMIT Internal Medicine; ATTEND Internal Medicine
PROC: 5A1D60Z (ICD-10-PCS; principal; 2017-07-13)
DX: A41.9 Sepsis, unspecified organism (principal); L03.115 Cellulitis of right lower limb; N18.6 End stage renal disease; I12.0 Hypertensive chronic kidney disease with stage 5 chronic kidney disease or end stage renal disease; E11.22 Type 2 diabetes mellitus with diabetic chronic kidney disease; F17.210 Nicotine dependence, cigarettes, uncomplicated; J44.9 Chronic obstructive pulmonary disease, unspecified; I89.0 Lymphedema, not elsewhere classified; K21.9 Gastro-esophageal reflux disease without esophagitis; J45.909 Unspecified asthma, uncomplicated; K59.00 Constipation, unspecified; D64.9 Anemia, unspecified; E66.01 Morbid (severe) obesity due to excess calories; Z99.2 Dependence on renal dialysis

== ENCOUNTER 2017-08-04 02:20 | Inpatient (IN) | payer MEDICAID, MEDICARE ==
[2017-08-04 02:20] VITALS: BMI 46.8
[2017-08-04] MEDS ORDERED: Morphine 4 MG/ML VIAL IV ONE ×2 (03:18→06:27)
[2017-08-04 03:49] LABS: BASO # 0.1 K/uL (0.0-0.2); BASO % 0.7 % (0.0-2.0); EOS # 0.5 K/uL (0.0-0.7); EOS % 3.1 % (0.0-4.0); HEMATOCRIT 28.4 % (35.0-51.0); LYMPH # 1.1 K/uL (1.0-4.3); LYMPH % 6.6 % (20.0-40.0); MEAN CORPUSCULAR HEMOGLOBIN 24.4 pg (27.0-31.0); MEAN CORPUSCULAR HGB CONC 32.5 g/dL (33.0-37.0); MEAN PLATELET VOLUME 8.1 fL (7.2-11.7); MONO # 1.5 K/uL (0.0-0.8); MONO % 9.1 % (0.0-10.0); NRBC % 0.1 % (0.0-2.0); PLATELET COUNT 287 K/uL (130-400); RED CELL DISTRIBUTION WIDTH 16.9 % (11.5-14.5); WHITE BLOOD COUNT 16.1 K/uL (4.8-10.8)
[2017-08-04 04:00] LABS: ALB/GLOB RATIO 0.7 (1.0-2.1); BILIRUBIN,TOTAL 1.1 mg/dL (0.2-1.3); CALCIUM 9.6 mg/dl (8.6-10.4); TOTAL PROTEIN 8.2 g/dL (6.3-8.3)
[2017-08-04 04:01] LABS: POTASSIUM 5.2 mmol/L (3.6-5.2)
[2017-08-04] MEDS ORDERED: Vancomycin 1 GM 1 GM/250 ML BAG IVPB ONE (04:15)
[2017-08-04 04:24] LABS: EOSINOPHIL 3 % (0-4); METAMYELOCYTE 1 % (0-0); NEUTROPHIL 77 % (50-75); TOTAL CELLS COUNTED 100
--- NOTE | 2017-08-04 05:54 | C.PDOC ---
History Of Present Illness 51 y/o male BIBOTONIEL with c/o of moderate pain, redness and swelling to right inner thigh x 3 days and getting progressively worse with draining wound to back of right thigh. Pt states past h/o of cellulitis of skin folds of right thigh and suspects same now. Pt denies fever, trauma Pt also reported missing his last dialysis yesterday , otherwise, no abd pain, SOB, dizziness, vomiting, weakness Time Seen by Provider: 08/04/17 02:54 Chief Complaint (Nursing): Abnormal Skin Integrity History Per: Patient History/Exam Limitations: no limitations Onset/Duration Of Symptoms: Gradual (3 d) Quality Of Symptoms: Painful, Swollen, Draining Severity: Moderate Additional History Per: EMS Past Medical History Vital Signs: Last Vital Signs Temp 97.9 F 08/04/17 02:39 Pulse 84 08/04/17 02:39 Resp 16 08/04/17 02:39 BP 104/40 L 08/04/17 02:39 Pulse Ox 99 08/04/17 02:39 - Medical History PMH: Anemia, Bronchitis, COPD, Diabetes, HTN, Peripheral Edema, End Stage Renal Disease, Chronic Kidney Disease, Chronic Pain - [facility] Procedures DIALYSIS ARTERIOVENOSTOM (05/07/14) DILATION OF LEFT BRACHIAL VEIN, PERCUTANEOUS APPROACH (08/04/16) DRESSING OF WOUND NEC (05/29/14) EXTIRPATION OF MATTER FROM L BRACH ART, PERC APPROACH (08/04/16) EXTIRPATION OF MATTER FROM LEFT BRACHIAL VEIN, PERC APPROACH (08/04/16) HEMODIALYSIS (05/29/14) OTHER FASCIECTOMY (05/29/14) PACKED CELL TRANSFUSION (05/29/14) PERCUTAN NEEDLE BIOPSY OF KIDNEY (01/30/14) PERFORMANCE OF URINARY FILTRATION, MULTIPLE (07/13/17) VENOUS CATHETERIZATION FOR RENAL DIALYSIS (01/18/14) VENOUS CATHETERIZATION NEC (09/22/13) Family History: States: Unknown Family Hx - Social History Hx Tobacco Use: No Hx Alcohol Use: No Hx Substance Use: No - Immunization History Hx Tetanus Toxoid Vaccination: Yes (w/in 5 years) Hx Influenza Vaccination: No Hx Pneumococcal Vaccination: No Review Of Systems Constitutional: Negative for: Fever, Chills Gastrointestinal: Negative for: Abdominal Pain Musculoskeletal: Positive for: Other (right thigh pain) Skin: Positive for: Lesions, Other (erythema) Physical Exam - Physical Exam Appears: Well, Non-toxic, No Acute Distress Skin: Other (moderate swelling of b/l LE with chronic skin changes , moderate swelling, erythema and warmth to folds of right inner thigh, (+) pressure blister to posterior right thigh with clear discharge ) ED Course And Treatment - Laboratory Results Result Diagrams: 08/04/17 03:42 08/04/17 03:42 O2 Sat by Pulse Oximetry: 99 Pulse Ox Interpretation: Normal Progress Note: Labs, morphinbe IV orsered. Pt with low BP, past records indicate h/o of past low BP. Pt tolerated IVmorphine well with good pain control. Case d/w Dr. andino who will admit pt to his service. Disposition - Disposition Disposition: HOSPITALIZED Disposition Time: 03:49 Condition: STABLE - Clinical Impression Clinical Impression: Cellulitis, Pressure ulcer, ESRD (end stage renal disease) Decision To Admit - Pt Status Changed To: Hospital Disposition Of: Inpatient - Admit Certification Admit to Inpatient:: After my assessment, the patient will require hospitalization for at least two midnights. This is because of the severity of symptoms shown, intensity of services needed, and/or the medical risk in this patient being treated as an outpatient. - InPatient: Physician Admission Certification: I certify that this patient requires 2 or more midnights of care for the following reason:: cellulitis, Leukocytosis, ESRD - . Bed Request Type: Regular Patient Diagnosis: Cellulitis, Pressure ulcer, ESRD (end stage renal disease)
[2017-08-04] MEDS ORDERED: Calamine-Zinc Oxide Lotion (120 ml) TOP PRN (09:23)
--- NOTE | 2017-08-04 09:42 | CP.PCM.HP ---
<Jimenez Marsh - Last Filed: 08/04/17 11:00> History of Present Illness - History of Present Illness History of Present Illness: PGY1 Note for Dr. Ac HPI: 51 year old male with a PMH of obesity, ESRD on HD, chronic lymphedema, asthma/bronchitis who is presenting with a boil on his right posterior upper thigh. He is complaining of pain that began a few days ago. The pain and boil began because he was wearing sweatpants and they rubbed on the skin to abrasively. The pain is a sharp stabbing pain that is localized to the area. Washing the area helps. Taking tramadol at home for the pain, provides moderate relief. Patient explains that he is also experiencing pain at any point his body weight rests. He also states there is an area of skin that is weeping in his right popliteal fossa. No noted discharge at the area. He states he has been experiencing a fever that began Wednesday night and moderate SOB. Denies chills, CP, d,c, dizziness, weakness. PMD: Codey Code: Full code PMH: -ESRD on HD TTS -chronic lymphedema -asthma, bronchitis -elephantiasis PSH: -AVF left upper extremity -I&D right leg pressure ulcer Family Hx: -mother: from ovarian cancer -uncle: DM Social -Smokin-10 cigarettes off and on daily since 1979 -alcohol: drinks socially, no hard liquor -drugs: denies -Independent in ADLS, uses a cane to walk, lives alone Allergies: Piperacillin Present on Admission - Present on Admission Any Indicators Present on Admission: No History of DVT/PE: No History of Uncontrolled Diabetes: Yes Urinary Catheter: No Decubitus Ulcer Present: No Review of Systems - Constitutional Constitutional: As Per HPI - EENT Eyes: As Per HPI Ears: As Per HPI Nose/Mouth/Throat: As Per HPI - Cardiovascular Cardiovascular: As Per HPI - Respiratory Respiratory: As Per HPI - Gastrointestinal Gastrointestinal: As Per HPI - Genitourinary Genitourinary: As Per HPI - Reproductive: Male Reproductive:Male: As Per HPI - Musculoskeletal Musculoskeletal: As Per HPI - Integumentary Integumentary: As Per HPI - Neurological Neurological: As Per HPI - Psychiatric Psychiatric: As Per HPI - Endocrine Endocrine: As Per HPI - Hematologic/Lymphatic Hematologic: As Per HPI Past Patient History - Infectious Disease Hx of Infectious Diseases: None - Past Medical History & Family History Past Medical History?: Yes - Past Social History Smoking Status: Light Smoker < 10 Cigarettes Daily - CARDIAC Hx Peripheral Edema: Yes - PULMONARY Hx Bronchitis: Yes Hx Chronic Obstructive Pulmonary Disease (COPD): Yes - NEUROLOGICAL Hx Neurological Disorder: No - HEENT Hx HEENT Problems: No - RENAL Hx Chronic Kidney Disease: Yes Type of Dialysis Access: Hemodialysis Date of Last Dialysis Treatment: 07/31/17 Hx Renal Failure: Yes - ENDOCRINE/METABOLIC Hx Diabetes Mellitus Type 2: Yes - HEMATOLOGICAL/ONCOLOGICAL Hx Anemia: Yes - INTEGUMENTARY Hx Dermatological Problems: Yes Hx Cellulitis: Yes (rt leg) - MUSCULOSKELETAL/RHEUMATOLOGICAL Hx Musculoskeletal Disorders: Yes Hx Falls: Yes - GASTROINTESTINAL Hx Gastrointestinal Disorders: Yes Hx Gastroesophageal Reflux: Yes - GENITOURINARY/GYNECOLOGICAL Hx Genitourinary Disorders: No - PSYCHIATRIC Hx Substance Use: No - SURGICAL HISTORY Hx Surgeries: Yes (Left arm AV Fistula) Hx Vascular Surgery: Yes (ACCESS FOR DIALYSIS) - ANESTHESIA Hx Anesthesia: Yes Hx Anesthesia Reactions: No Hx Malignant Hyperthermia: No Meds Allergies/Adverse Reactions: Allergies Allergy/AdvReac Type Severity Reaction Status Date / Time piperacillin AdvReac ITCHING, Verified 08/04/17 02:50 SHORTNESS OF BREATH PET DANDER Allergy Severe CONGESTION Uncoded 07/12/17 21:02 Physical Exam - Constitutional Appears: Well, Non-toxic, No Acute Distress - Head Exam Head Exam: ATRAUMATIC, NORMAL INSPECTION, NORMOCEPHALIC - Eye Exam Eye Exam: EOMI - ENT Exam ENT Exam: Mucous Membranes Moist - Neck Exam Neck exam: Positive for: Normal Inspection - Respiratory Exam Respiratory Exam: Clear to Auscultation Bilateral, NORMAL BREATHING PATTERN. absent: Rales, Rhonchi, Wheezes, Stridor - Cardiovascular Exam Cardiovascular Exam: REGULAR RHYTHM, RRR. absent: Gallop, Rubs - GI/Abdominal Exam GI & Abdominal Exam: Normal Bowel Sounds, Soft. absent: Distended, Tenderness - Extremities Exam Additional comments: massive edema b/l 1cm boil on R.Leg with no surrounding erythema or induration, no increased warmth, no evidence of infection No weeping ulcers present remainder of skin is intact - Neurological Exam Neurological exam: Alert, Oriented x3 - Psychiatric Exam Psychiatric exam: Normal Affect, Normal Mood Results - Vital Signs Recent Vital Signs: Last Vital Signs Temp 97.8 F 08/04/17 07:01 Pulse 80 08/04/17 07:01 Resp 20 08/04/17 07:01 BP 113/68 08/04/17 07:01 Pulse Ox 95 08/04/17 07:01 - Labs Result Diagrams: 08/04/17 03:42 08/04/17 03:42 Labs: Laboratory Results - last 24 hr 08/04/17 08:02 POC Glucose (mg/dL) 120 H Assessment & Plan - Assessment and Plan (Free Text) Assessment: R. Leg ulcer 1cm * Vanco 1 gm IV TTS after dialysis * Zosyn 2.2 gm IV Q8 Dry Skin * Aloe Vera QD * Calamine QD ESRD * Nephro (Nakul) * TTS Dialysis Dry Mouth * Nystatin mouthwash PPX * Pepcid 20 QD * Lovenox 30 SC QD * PT/OT - Date & Time Date: 08/04/17 Time: 09:42 Decision To Admit - Pt Status Changed To: Hospital Disposition Of: Observation - Admit Certification Admit to Inpatient:: . - . Bed Request Type: Regular Admitting Physician: Joe Ac <Joe Ac - Last Filed: 08/04/17 17:44> Results - Vital Signs Recent Vital Signs: Last Vital Signs Temp 98.1 F 08/04/17 16:00 Pulse 74 08/04/17 16:00 Resp 20 08/04/17 16:00 BP 121/75 08/04/17 16:00 Pulse Ox 96 08/04/17 16:00 - Labs Result Diagrams: 08/04/17 03:42 08/04/17 03:42 Labs: Laboratory Results - last 24 hr 08/04/17 08/04/17 08:02 16:32 POC Glucose (mg/dL) 120 H 116 H Attending/Attestation - Attestation I have personally seen and examined this patient.: Yes I have fully participated in the care of the patient.: Yes I have reviewed all pertinent clinical information: Yes Notes (Text): 08/04/17 17:42 Medical Attending: Patient was seen and examined by me. Agree with the above note by the resident Patient is well known to the hospitalist service from history of bilateral leg complications due to his lymphedema. The patient does have an elevated WBC with small left shift. He report right behind the knee pain as well as weeping fluid. Per inspection during the exam we did not see any open wounds and no fluid at that time. Nevertheless will start IV abx. Also check lower extremities for DVT as well Patient has been missing his most recent session of HD and will need HD while he is here. thank you Joe Ac
[2017-08-04] MEDS ORDERED: SODIUM CHLORIDE IVPB SCH (09:45)
[2017-08-04] MEDS ORDERED: TAZOBACT IVPB SCH (09:45)
[2017-08-04] MEDS ORDERED: PIPERACILLIN IVPB SCH (09:45)
[2017-08-04] MEDS ORDERED: Enoxaparin 40 mg Syringe SC SCH (10:00)
[2017-08-04] MEDS: Nystatin 100,000 Units/ml Oral Susp 5 ml UD PO SCH ×4 (10:25→21:52)
[2017-08-04] MEDS: Enoxaparin 30 mg Syringe SC SCH (10:25)
--- NOTE | 2017-08-04 14:16 | CP.PCM.CON ---
History of Present Illness - History of Present Illness History of Present Illness: HPI: 51 year old male with a PMH of obesity, ESRD on HD, chronic lymphedema, asthma/bronchitis who is presenting with a boil on his right posterior upper thigh. He is complaining of pain that began a few days ago. The pain and boil began because he was wearing sweatpants and they rubbed on the skin to abrasively. The pain is a sharp stabbing pain that is localized to the area. Washing the area helps. Taking tramadol at home for the pain, provides moderate relief. Patient explains that he is also experiencing pain at any point his body weight rests. He also states there is an area of skin that is weeping in his right popliteal fossa. No noted discharge at the area. He states he has been experiencing a fever that began Wednesday night and moderate SOB. Denies chills, CP, d,c, dizziness, weakness. PMD: Codey Code: Full code PMH: -ESRD on HD TTS -chronic lymphedema -asthma, bronchitis -elephantiasis PSH: -AVF left upper extremity -I&D right leg pressure ulcer Family Hx: -mother: from ovarian cancer -uncle: DM Social -Smokin-10 cigarettes off and on daily since 1979 -alcohol: drinks socially, no hard liquor -drugs: denies -Independent in ADLS, uses a cane to walk, lives alone Has been on dialysis x 3-4 years Often misses treatments- again last week- accounts for added LE edema. Will try tomarrange for increased UF with HD Review of Systems - Constitutional Constitutional: Chills, Fatigue, Fever, Weight Gain, Weakness - EENT Eyes: absent: As Per HPI, Blind Spots, Blurred Vision, Change in Vision, Decreased Night Vision, Diplopia, Discharge, Dry Eye, Exophthalmos, Floaters, Irritation, Itchy Eyes, Loss of Peripheral Vision, Pain, Photophobia, Requires Corrective Lenses, Sees Flashes, Spots in Vision, Tunnel Vision, Other Visual Disturbances, Loss of Vision, Other Ears: absent: As Per HPI, Decreased Hearing, Ear Discharge, Ear Pain, Tinnitus, Abnormal Hearing, Disequilibrium, Dizziness, Other Nose/Mouth/Throat: absent: As Per HPI, Epistaxis, Nasal Congestion, Nasal Discharge, Nasal Obstruction, Nasal Trauma, Nose Pain, Post Nasal Drip, Sinus Pain, Sinus Pressure, Bleeding Gums, Change in Voice, Dental Pain, Dry Mouth, Dysphagia, Halitosis, Hoarsness, Lip Swelling, Mouth Lesions, Mouth Pain, Odynophagia, Sore Throat, Throat Swelling, Tongue Swelling, Facial Pain, Neck Pain, Neck Mass, Other - Cardiovascular Cardiovascular: Leg Edema, Lightheadedness - Respiratory Respiratory: Dyspnea on Exertion - Gastrointestinal Gastrointestinal: Abdominal Pain, Loose Stools - Genitourinary Genitourinary: As Per HPI - Musculoskeletal Musculoskeletal: Arthralgias, Muscle Cramps, Myalgias - Integumentary Integumentary: Erythema, Rash - Neurological Neurological: absent: As Per HPI, Abnormal Gait, Abnormal Hearing, Abnormal Movements, Abnormal Speech, Behavioral Changes, Burning Sensations, Confusion, Convulsions, Disequilibrium, Dizziness, Numbness, Focal Weakness, Frequent Falls , Headaches, Lack of Coordination, Loss of Vision, Memory Loss, Paresthesias, Radicular Pain, Restless Legs, Sensory Deficit, Syncope, Tingling, Tremor, Vertigo, Weakness, Other Visual Disturbances, Other Past Patient History - Infectious Disease Hx of Infectious Diseases: None - Past Medical History & Family History Past Medical History?: Yes Past Family History: Reviewed and not pertinent - Past Social History Smoking Status: Light Smoker < 10 Cigarettes Daily Chewing Tobacco Use: No Cigar Use: No Alcohol: None Drugs: Denies - CARDIAC Hx Peripheral Edema: Yes - PULMONARY Hx Bronchitis: Yes Hx Chronic Obstructive Pulmonary Disease (COPD): Yes - NEUROLOGICAL Hx Neurological Disorder: No - HEENT Hx HEENT Problems: No - RENAL Hx Chronic Kidney Disease: Yes Type of Dialysis Access: Hemodialysis Date of Last Dialysis Treatment: 07/31/17 Hx Renal Failure: Yes - ENDOCRINE/METABOLIC Hx Diabetes Mellitus Type 2: Yes - HEMATOLOGICAL/ONCOLOGICAL Hx Anemia: Yes - INTEGUMENTARY Hx Dermatological Problems: Yes Hx Cellulitis: Yes (rt leg) - MUSCULOSKELETAL/RHEUMATOLOGICAL Hx Musculoskeletal Disorders: Yes Hx Falls: Yes - GASTROINTESTINAL Hx Gastrointestinal Disorders: Yes Hx Gastroesophageal Reflux: Yes - GENITOURINARY/GYNECOLOGICAL Hx Genitourinary Disorders: No - PSYCHIATRIC Hx Substance Use: No - SURGICAL HISTORY Hx Surgeries: Yes (Left arm AV Fistula) Hx Vascular Surgery: Yes (ACCESS FOR DIALYSIS) - ANESTHESIA Hx Anesthesia: Yes Hx Anesthesia Reactions: No Hx Malignant Hyperthermia: No Meds Allergies/Adverse Reactions: Allergies Allergy/AdvReac Type Severity Reaction Status Date / Time piperacillin AdvReac ITCHING, Verified 08/04/17 02:50 SHORTNESS OF BREATH PET DANDER Allergy Severe CONGESTION Uncoded 07/12/17 21:02 - Medications Medications: Current Medications Acetaminophen (Tylenol 325mg Tab) 650 mg PO Q6 PRN PRN Reason: Fever >100.4 F Calamine (Calamine Lotion) 1 ml TOP PRN PRN PRN Reason: Dry skin Last Admin: 08/04/17 13:28 Dose: 1 ml Docusate Sodium (Colace) 100 mg PO BID [facility] Last Admin: 08/04/17 10:32 Dose: Not Given Enoxaparin Sodium (Lovenox) 30 mg SC DAILY [facility] Last Admin: 08/04/17 10:25 Dose: 30 mg Famotidine (Pepcid) 20 mg PO DAILY [facility] Last Admin: 08/04/17 10:25 Dose: 20 mg Vancomycin HCl 1 gm/ Sodium (Chloride) 250 mls @ 166.7 mls/hr IVPB TTS [facility] Morphine Sulfate (Morphine) 2 mg IVP Q4H PRN PRN Reason: Pain, moderate (4-7) Nystatin (Nystatin Oral Susp) 5 ml PO QID [facility] Last Admin: 08/04/17 13:28 Dose: 5 ml Ondansetron HCl (Zofran Inj) 4 mg IVP Q6 PRN PRN Reason: Nausea/Vomiting Physical Exam - Constitutional Appears: In Acute Distress, Chronically Ill - Head Exam Head Exam: ATRAUMATIC, NORMAL INSPECTION - Eye Exam Eye Exam: EOMI, Normal appearance - Neck Exam Neck exam: Positive for: Normal Inspection. Negative for: Tenderness - Respiratory Exam Respiratory Exam: Clear to Auscultation Bilateral, NORMAL BREATHING PATTERN - Cardiovascular Exam Cardiovascular Exam: REGULAR RHYTHM, +S1 - GI/Abdominal Exam GI & Abdominal Exam: Distended, Soft - Extremities Exam Extremities exam: Positive for: pedal edema, tenderness - Neurological Exam Neurological exam: Alert, CN II-XII Intact - Skin Skin Exam: Dry, Erythema, Warm Results - Vital Signs Recent Vital Signs: Last Vital Signs Temp 97.8 F 08/04/17 07:01 Pulse 80 08/04/17 07:01 Resp 20 08/04/17 07:01 BP 113/68 08/04/17 07:01 Pulse Ox 95 08/04/17 07:01 - Labs Result Diagrams: 08/04/17 03:42 08/04/17 03:42 Labs: Laboratory Results - last 24 hr 08/04/17 08:02 POC Glucose (mg/dL) 120 H Assessment & Plan (1) Cellulitis and abscess of left leg Status: Acute (2) Lymphedema in adult patient Status: Acute (3) ESRD on hemodialysis Status: Chronic - Assessment and Plan (Free Text) Plan: Increase UF with HD IV ABs
[2017-08-04] MEDS: Hydrocortisone 2.5% Rectal Cream(30 gm) PR SCH (17:08)
[2017-08-04] MEDS ORDERED: POLYETHYLENE GLYCOL 3350 17 GM/Dose PACKET PO ONE (17:40)
[2017-08-05 07:24] LABS: BASO # 0.1 K/uL (0.0-0.2); BASO % 0.5 % (0.0-2.0); EOS # 0.4 K/uL (0.0-0.7); EOS % 3.4 % (0.0-4.0); HEMATOCRIT 25.9 % (35.0-51.0); LYMPH # 1.2 K/uL (1.0-4.3); LYMPH % 9.5 % (20.0-40.0); MEAN CORPUSCULAR HEMOGLOBIN 24.2 pg (27.0-31.0); MEAN CORPUSCULAR HGB CONC 32.3 g/dL (33.0-37.0); MEAN PLATELET VOLUME 7.8 fL (7.2-11.7); MONO # 1.4 K/uL (0.0-0.8); MONO % 10.9 % (0.0-10.0); PLATELET COUNT 267 K/uL (130-400); WHITE BLOOD COUNT 12.8 K/uL (4.8-10.8)
[2017-08-05 08:20] LABS: POTASSIUM 4.6 mmol/L (3.6-5.2)
[2017-08-05 08:22] LABS: BILIRUBIN,TOTAL 0.7 mg/dL (0.2-1.3)
[2017-08-05 08:23] LABS: ALB/GLOB RATIO 0.7 (1.0-2.1); CALCIUM 8.8 mg/dl (8.6-10.4); TOTAL PROTEIN 7.3 g/dL (6.3-8.3)
[2017-08-05 08:57] LABS: EOSINOPHIL 2 % (0-4); MYELOCYTE 3 % (0-0); NEUTROPHIL 68 % (50-75); TOTAL CELLS COUNTED 100
[2017-08-05] MEDS ORDERED: Cefepime 1 GM in Sodium Chloride 0.9% 100 ML IVPB ONE (09:00)
--- NOTE | 2017-08-05 09:42 | CP.PCM.PN ---
Subjective - Date & Time of Evaluation Date of Evaluation: 08/05/17 Time of Evaluation: 09:39 - Subjective Subjective: For dialysis now Very edematous trying to increase UF with hD labs reviewed Objective - Vital Signs/Intake and Output Vital Signs (last 24 hours): Temp Pulse Resp BP Pulse Ox 98.1 F 76 20 128/64 96 08/05/17 08:33 08/05/17 08:33 08/05/17 08:33 08/05/17 08:33 08/05/17 08:33 Intake and Output: 08/05/17 08/05/17 06:59 18:59 Output Total 400 Balance -400 - Medications Medications: Current Medications Acetaminophen (Tylenol 325mg Tab) 650 mg PO Q6 PRN PRN Reason: Fever >100.4 F Calamine (Calamine Lotion) 1 ml TOP PRN PRN PRN Reason: Dry skin Last Admin: 08/04/17 13:28 Dose: 1 ml Docusate Sodium (Colace) 100 mg PO BID [facility] Last Admin: 08/04/17 17:08 Dose: Not Given Enoxaparin Sodium (Lovenox) 30 mg SC DAILY [facility] Last Admin: 08/04/17 10:25 Dose: 30 mg Famotidine (Pepcid) 20 mg PO DAILY [facility] Last Admin: 08/04/17 10:25 Dose: 20 mg Heparin Sodium (Porcine) (Heparin) 2,000 units IVP [facility] Stop: 08/10/17 10:01 Hydrocortisone (Anusol-Hc) 1 gm IA BID [facility] Last Admin: 08/04/17 17:08 Dose: 1 applic Vancomycin HCl 1 gm/ Sodium (Chloride) 250 mls @ 166.7 mls/hr IVPB TTS [facility] Cefepime HCl 1 gm/ Sodium (Chloride) 100 mls @ 100 mls/hr IVPB ONCE ONE Stop: 08/05/17 09:59 Last Admin: 08/05/17 08:26 Dose: 100 mls/hr Morphine Sulfate (Morphine) 2 mg IVP Q4H PRN PRN Reason: Pain, moderate (4-7) Last Admin: 08/05/17 08:22 Dose: 2 mg Nystatin (Nystatin Oral Susp) 5 ml PO QID [facility] Last Admin: 08/04/17 21:52 Dose: 5 ml Ondansetron HCl (Zofran Inj) 4 mg IVP Q6 PRN PRN Reason: Nausea/Vomiting - Labs Labs: 08/05/17 07:16 08/05/17 07:16 - Constitutional Appears: No Acute Distress, Chronically Ill - Head Exam Head Exam: ATRAUMATIC, NORMAL INSPECTION - Eye Exam Eye Exam: EOMI, Normal appearance - Neck Exam Neck Exam: Normal Inspection. absent: Tenderness - Respiratory Exam Respiratory Exam: Clear to Ausculation Bilateral, NORMAL BREATHING PATTERN - Cardiovascular Exam Cardiovascular Exam: REGULAR RHYTHM, +S1 - GI/Abdominal Exam GI & Abdominal Exam: Soft. absent: Tenderness - Extremities Exam Extremities Exam: Pedal Edema. absent: Tenderness - Neurological Exam Neurological Exam: Alert, CN II-XII Intact - Skin Skin Exam: Dry, Warm Assessment and Plan (1) Cellulitis and abscess of left leg Status: Acute (2) Lymphedema in adult patient Status: Acute (3) ESRD on hemodialysis Status: Chronic - Assessment and Plan (Free Text) Plan: ncrease UF with HD ABs as per medicine
[2017-08-05] MEDS: Nystatin 100,000 Units/ml Oral Susp 5 ml UD PO SCH ×4 (10:00→21:56)
[2017-08-05] MEDS: Hydrocortisone 2.5% Rectal Cream(30 gm) PR SCH ×2 (10:36→18:47)
[2017-08-05] MEDS: Epoetin Alfa 10,000 unit/ml Dialysis IV SCH (12:14)
[2017-08-05] MEDS: HYDROmorphone 0.5 mg/0.5 ml ISec IVP PRN ×2 (13:48→19:02)
[2017-08-05] MEDS: Enoxaparin 30 mg Syringe SC SCH (14:14)
--- NOTE | 2017-08-05 15:32 | CP.PCM.PN ---
<Alyce Catherine - Last Filed: 08/05/17 15:25> Subjective - Date & Time of Evaluation Date of Evaluation: 08/05/17 Time of Evaluation: 07:30 - Subjective Subjective: Medicine Progress Note: Patient was seen and examined at bedside in the AM. Patient states he continues to have bilateral leg pain. He denies chest pain, shortness of breath , or difficulty breathing. Patient states he did not like his dinner overnight but he denies nausea or vomiting. Objective - Vital Signs/Intake and Output Vital Signs (last 24 hours): Temp Pulse Resp BP Pulse Ox 98.1 F 79 20 96/53 L 96 08/05/17 09:25 08/05/17 12:15 08/05/17 09:25 08/05/17 12:15 08/05/17 08:33 Intake and Output: 08/05/17 08/05/17 06:59 18:59 Intake Total 950 Output Total 400 Balance -400 950 - Medications Medications: Current Medications Acetaminophen (Tylenol 325mg Tab) 650 mg PO Q6 PRN PRN Reason: Fever >100.4 F Calamine (Calamine Lotion) 1 ml TOP PRN PRN PRN Reason: Dry skin Last Admin: 08/04/17 13:28 Dose: 1 ml Docusate Sodium (Colace) 100 mg PO BID [facility] Last Admin: 08/05/17 12:13 Dose: Not Given Enoxaparin Sodium (Lovenox) 30 mg SC DAILY [facility] Last Admin: 08/05/17 14:14 Dose: 30 mg Epoetin Ventura (Procrit) 10,000 unit IV TTS [facility] Stop: 08/10/17 10:01 Last Admin: 08/05/17 12:14 Dose: 10,000 unit Famotidine (Pepcid) 20 mg PO DAILY [facility] Last Admin: 08/05/17 13:47 Dose: 20 mg Heparin Sodium (Porcine) (Heparin) 2,000 units IVP TTS [facility] Stop: 08/10/17 10:01 Last Admin: 08/05/17 09:43 Dose: 2,000 units Hydrocortisone (Anusol-Hc) 1 gm FL BID [facility] Last Admin: 08/05/17 10:36 Dose: Not Given Hydromorphone HCl (Dilaudid) 0.5 mg IVP Q4H PRN PRN Reason: Pain, severe (8-10) Last Admin: 08/05/17 13:48 Dose: 0.5 mg Vancomycin HCl 1 gm/ Sodium (Chloride) 250 mls @ 166.7 mls/hr IVPB TTS [facility] Last Admin: 08/05/17 13:49 Dose: 166.7 mls/hr Insulin Human Regular (Novolin R) 0 unit SC ACHS [facility] PRN Reason: Protocol Morphine Sulfate (Morphine) 2 mg IVP Q4H PRN PRN Reason: Pain, moderate (4-7) Last Admin: 08/05/17 08:22 Dose: 2 mg Nystatin (Nystatin Oral Susp) 5 ml PO QID [facility] Last Admin: 08/05/17 13:47 Dose: 5 ml Ondansetron HCl (Zofran Inj) 4 mg IVP Q6 PRN PRN Reason: Nausea/Vomiting - Labs Labs: 08/05/17 07:16 08/05/17 07:16 - Constitutional Appears: No Acute Distress, Other (Morbidly Obese ) - Head Exam Head Exam: ATRAUMATIC, NORMAL INSPECTION, NORMOCEPHALIC - Eye Exam Eye Exam: EOMI, Normal appearance, PERRL Pupil Exam: NORMAL ACCOMODATION - ENT Exam ENT Exam: Mucous Membranes Moist - Respiratory Exam Respiratory Exam: Clear to Ausculation Bilateral, NORMAL BREATHING PATTERN - Cardiovascular Exam Cardiovascular Exam: REGULAR RHYTHM, RRR, +S1, +S2 - GI/Abdominal Exam GI & Abdominal Exam: Soft, Normal Bowel Sounds. absent: Tenderness - Extremities Exam Extremities Exam: Tenderness (bilateral lower extremity tenderness ). absent: Normal Inspection Additional comments: Patient's thighs do touch Bilateral lymph edema in lower extremity - Neurological Exam Neurological Exam: Alert, Awake, Oriented x3 - Psychiatric Exam Psychiatric exam: Agitated - Skin Skin Exam: Dry, Intact, Normal Color, Warm Assessment and Plan - Assessment and Plan (Free Text) Plan: 1.) Leukocytosis * WBC (08/05) 12.8; (08/04) 16.1 * Continue Zosyn 2.2 gm IV Q8 * f/u blood cultures (must be negative for 48 hours) 2.) Dry skin secondary to Bilateral Lower extremity leg edema - .5mg Dilaudid PRN for severe pain - Morphine 2mg PRN for moderate pain - f/u venous doppler - Aloe Vera - Calamine 3.) ESRD - Dialysis today 08/05/17 - Nephrology Consult: Dr. Hamilton --> help appreciated 4.) Pre-Diabetes - HA1c (01/14/17): 6.7 - ACCUchecks - ISS 5.) Prophylaxis - Pepcid 20mg - Lovenox 30mg - PT/OT Case Discussed with Dr. Yashira Catherine PGY-1 <Joe Ac - Last Filed: 08/05/17 18:19> Objective - Vital Signs/Intake and Output Vital Signs (last 24 hours): Temp Pulse Resp BP Pulse Ox 98.1 F 77 20 108/67 96 08/05/17 16:00 08/05/17 16:00 08/05/17 16:00 08/05/17 16:00 08/05/17 16:00 Intake and Output: 08/05/17 08/05/17 06:59 18:59 Intake Total 950 Output Total 400 Balance -400 950 - Medications Medications: Current Medications Acetaminophen (Tylenol 325mg Tab) 650 mg PO Q6 PRN PRN Reason: Fever >100.4 F Calamine (Calamine Lotion) 1 ml TOP PRN PRN PRN Reason: Dry skin Last Admin: 08/04/17 13:28 Dose: 1 ml Docusate Sodium (Colace) 100 mg PO BID [facility] Last Admin: 08/05/17 17:25 Dose: Not Given Enoxaparin Sodium (Lovenox) 30 mg SC DAILY [facility] Last Admin: 08/05/17 14:14 Dose: 30 mg Epoetin Ventura (Procrit) 10,000 unit IV TTS [facility] Stop: 08/10/17 10:01 Last Admin: 08/05/17 12:14 Dose: 10,000 unit Famotidine (Pepcid) 20 mg PO DAILY [facility] Last Admin: 08/05/17 13:47 Dose: 20 mg Heparin Sodium (Porcine) (Heparin) 2,000 units IVP TTS [facility] Stop: 08/10/17 10:01 Last Admin: 08/05/17 09:43 Dose: 2,000 units Hydrocortisone (Anusol-Hc) 1 gm FL BID [facility] Last Admin: 08/05/17 10:36 Dose: Not Given Hydromorphone HCl (Dilaudid) 0.5 mg IVP Q4H PRN PRN Reason: Pain, severe (8-10) Last Admin: 08/05/17 13:48 Dose: 0.5 mg Vancomycin HCl 1 gm/ Sodium (Chloride) 250 mls @ 166.7 mls/hr IVPB TTS [facility] Last Admin: 08/05/17 13:49 Dose: 166.7 mls/hr Insulin Human Regular (Novolin R) 0 unit SC ACHS [facility] PRN Reason: Protocol Last Admin: 08/05/17 17:47 Dose: Not Given Morphine Sulfate (Morphine) 2 mg IVP Q4H PRN PRN Reason: Pain, moderate (4-7) Last Admin: 08/05/17 17:19 Dose: 2 mg Nystatin (Nystatin Oral Susp) 5 ml PO QID [facility] Last Admin: 08/05/17 17:25 Dose: 5 ml Ondansetron HCl (Zofran Inj) 4 mg IVP Q6 PRN PRN Reason: Nausea/Vomiting - Labs Labs: 08/05/17 07:16 08/05/17 07:16 Attending/Attestation - Attestation I have personally seen and examined this patient.: Yes I have fully participated in the care of the patient.: Yes I have reviewed all pertinent clinical information, including history, physical exam and plan: Yes Notes (Text): 08/05/17 18:19 Medical attending: Patient was seen and examined by me, agrees the above note by medical review specialist. As usual the patient has a lot of questions and concerns. He reported that the morphine was not working for him, considering the his body habitus as well as his leg situation we decided to add on Dilaudid 0.5 mg Q4hrs for pain with the morpine as well. Also we wanted a lower extremity Doppler, however this appeared to be canceled so we reordered it. His white blood cell count has decreased from 16 down to 12. Were still pending a blood culture at this time the results of which are not back yet He denies having any fevers or chills He's also having hemodialysis as well. He also had a discussion with regards to his elevated blood sugar. The patient was shocked and alarmed that he has diabetes. I explained to him that currently he is very borderline diabetic. He does have some elevated Accu-Cheks that were found. He also has a hemoglobin A1c that is 6.7 at this time will continue small amounts of sliding scale insulin. Thank you very much, Joe Ac
[2017-08-05] MEDS: (Novolin R) Insulin Human Regular 100 units/ml vial SC SCH ×2 (17:47→21:43)
[2017-08-06] MEDS: HYDROmorphone 0.5 mg/0.5 ml ISec IVP PRN ×3 (00:56→11:32)
[2017-08-06] MEDS: (Novolin R) Insulin Human Regular 100 units/ml vial SC SCH ×4 (08:12→22:03)
[2017-08-06 08:13] LABS: BASO # 0.1 K/uL (0.0-0.2); BASO % 0.8 % (0.0-2.0); EOS # 0.5 K/uL (0.0-0.7); EOS % 3.5 % (0.0-4.0); HEMATOCRIT 25.4 % (35.0-51.0); LYMPH # 1.2 K/uL (1.0-4.3); LYMPH % 8.1 % (20.0-40.0); MEAN CORPUSCULAR HEMOGLOBIN 24.2 pg (27.0-31.0); MEAN CORPUSCULAR HGB CONC 32.3 g/dL (33.0-37.0); MEAN PLATELET VOLUME 7.6 fL (7.2-11.7); MONO # 1.1 K/uL (0.0-0.8); MONO % 7.4 % (0.0-10.0); NRBC % 0.1 % (0.0-2.0); PLATELET COUNT 297 K/uL (130-400); WHITE BLOOD COUNT 15.1 K/uL (4.8-10.8)
[2017-08-06 08:39] LABS: POTASSIUM 4.5 mmol/L (3.6-5.2)
[2017-08-06 08:41] LABS: ALB/GLOB RATIO 0.7 (1.0-2.1); BILIRUBIN,TOTAL 0.8 mg/dL (0.2-1.3); TOTAL PROTEIN 7.5 g/dL (6.3-8.3)
[2017-08-06 08:42] LABS: CALCIUM 8.7 mg/dl (8.6-10.4); MAGNESIUM 1.7 mg/dL (1.6-2.3); PHOSPHOROUS 5.4 mg/dL (2.5-4.5)
--- NOTE | 2017-08-06 09:53 | CP.PCM.PN ---
<Alyce Catherine - Last Filed: 08/06/17 12:54> Subjective - Date & Time of Evaluation Date of Evaluation: 08/06/17 Time of Evaluation: 07:30 - Subjective Subjective: Medicine Progress Note: Patient was seen and examined at bedside in the AM. Patient states he slept better in 4 hour increments at a time. Patient continues to state he has pain in his lower extremities. Patient denies chest pain or palpitations. Patient is tolerating diet. Objective - Vital Signs/Intake and Output Vital Signs (last 24 hours): Temp Pulse Resp BP Pulse Ox 98.3 F 75 18 108/66 96 08/06/17 07:10 08/06/17 07:10 08/06/17 07:10 08/06/17 07:10 08/06/17 07:10 - Medications Medications: Current Medications Acetaminophen (Tylenol 325mg Tab) 650 mg PO Q6 PRN PRN Reason: Fever >100.4 F Calamine (Calamine Lotion) 1 ml TOP PRN PRN PRN Reason: Dry skin Last Admin: 08/04/17 13:28 Dose: 1 ml Docusate Sodium (Colace) 100 mg PO BID [facility] Last Admin: 08/05/17 17:25 Dose: Not Given Enoxaparin Sodium (Lovenox) 30 mg SC DAILY [facility] Last Admin: 08/05/17 14:14 Dose: 30 mg Epoetin Ventura (Procrit) 10,000 unit IV TTS [facility] Stop: 08/10/17 10:01 Last Admin: 08/05/17 12:14 Dose: 10,000 unit Famotidine (Pepcid) 20 mg PO DAILY [facility] Last Admin: 08/05/17 13:47 Dose: 20 mg Heparin Sodium (Porcine) (Heparin) 2,000 units IVP TTS [facility] Stop: 08/10/17 10:01 Last Admin: 08/05/17 09:43 Dose: 2,000 units Hydrocortisone (Anusol-Hc) 1 gm OR BID [facility] Last Admin: 08/05/17 18:47 Dose: 1 applic Hydromorphone HCl (Dilaudid) 0.5 mg IVP Q4H PRN PRN Reason: Pain, severe (8-10) Last Admin: 08/06/17 05:51 Dose: 0.5 mg Vancomycin HCl 1 gm/ Sodium (Chloride) 250 mls @ 166.7 mls/hr IVPB TTS [facility] Last Admin: 08/05/17 13:49 Dose: 166.7 mls/hr Insulin Human Regular (Novolin R) 0 unit SC ACHS [facility] PRN Reason: Protocol Last Admin: 08/06/17 08:12 Dose: Not Given Morphine Sulfate (Morphine) 2 mg IVP Q4H PRN PRN Reason: Pain, moderate (4-7) Last Admin: 08/06/17 08:21 Dose: 2 mg Nystatin (Nystatin Oral Susp) 5 ml PO QID [facility] Last Admin: 08/05/17 21:56 Dose: 5 ml Ondansetron HCl (Zofran Inj) 4 mg IVP Q6 PRN PRN Reason: Nausea/Vomiting - Labs Labs: 08/06/17 08:01 08/06/17 08:01 - Constitutional Appears: No Acute Distress, Other (morbidly obese) - Head Exam Head Exam: ATRAUMATIC, NORMAL INSPECTION, NORMOCEPHALIC - ENT Exam ENT Exam: Mucous Membranes Moist - Respiratory Exam Respiratory Exam: Clear to Ausculation Bilateral, NORMAL BREATHING PATTERN - Cardiovascular Exam Cardiovascular Exam: REGULAR RHYTHM, RRR, +S1, +S2 - GI/Abdominal Exam GI & Abdominal Exam: Soft, Normal Bowel Sounds. absent: Tenderness - Extremities Exam Extremities Exam: Joint Swelling (bilateraly lower extremity lymph edema ), Tenderness (bilateral lower extremity tenderness). absent: Full ROM (bilateral lower extremity tenderness) - Neurological Exam Neurological Exam: Alert, Awake, Oriented x3 - Psychiatric Exam Psychiatric exam: Anxious - Skin Skin Exam: Normal Color, Warm Assessment and Plan - Assessment and Plan (Free Text) Plan: 1.) Leukocytosis * WBC (08/06) 15.1; (08/05) 12.8; (08/04) 16.1 * Continue Cefepime 1 gm daily * Continue Vancomycin daily * f/u blood cultures (must be negative for 48 hours) 2.) Dry skin secondary to Bilateral Lower extremity leg edema - 1mg Dilaudid PRN for severe pain - Morphine 2mg PRN for moderate pain --> discontinued 08/06/17 - f/u venous doppler - Aloe Vera - Calamine 3.) ESRD - Dialysis today 08/05/17 - Nephrology Consult: Dr. Hamilton --> help appreciated 4.) Pre-Diabetes - HA1c (01/14/17): 6.7 - ACCUchecks - ISS 5.) Prophylaxis - Pepcid 20mg - Lovenox 30mg - PT/OT Case Discussed with Dr. Yashira Catherine PGY-1 <Joe Ac - Last Filed: 08/06/17 16:31> Objective - Vital Signs/Intake and Output Vital Signs (last 24 hours): Temp Pulse Resp BP Pulse Ox 98.4 F 77 20 124/61 95 08/06/17 15:09 08/06/17 15:09 08/06/17 15:09 08/06/17 15:09 08/06/17 15:09 - Medications Medications: Current Medications Acetaminophen (Tylenol 325mg Tab) 650 mg PO Q6 PRN PRN Reason: Fever >100.4 F Calamine (Calamine Lotion) 1 ml TOP PRN PRN PRN Reason: Dry skin Last Admin: 08/04/17 13:28 Dose: 1 ml Enoxaparin Sodium (Lovenox) 30 mg SC DAILY [facility] Last Admin: 08/06/17 11:37 Dose: 30 mg Epoetin Ventura (Procrit) 10,000 unit IV TTS [facility] Stop: 08/10/17 10:01 Last Admin: 08/05/17 12:14 Dose: 10,000 unit Famotidine (Pepcid) 20 mg PO DAILY [facility] Last Admin: 08/06/17 11:38 Dose: 20 mg Heparin Sodium (Porcine) (Heparin) 2,000 units IVP TTS [facility] Stop: 08/10/17 10:01 Last Admin: 08/05/17 09:43 Dose: 2,000 units Hydrocortisone (Anusol-Hc) 1 gm OR BID [facility] Last Admin: 08/06/17 11:39 Dose: 1 applic Hydromorphone HCl (Dilaudid) 1 mg IVP Q4H PRN PRN Reason: Pain, severe (8-10) Vancomycin HCl 1 gm/ Sodium (Chloride) 250 mls @ 166.7 mls/hr IVPB TTS [facility] Last Admin: 08/05/17 13:49 Dose: 166.7 mls/hr Cefepime HCl (Maxipime Iv 1 Gm Premix) 1 gm in 50 mls @ 100 mls/hr IVPB Q24H [facility] Stop: 08/08/17 13:29 Last Admin: 08/06/17 13:35 Dose: 100 mls/hr Insulin Human Regular (Novolin R) 0 unit SC ACHS [facility] PRN Reason: Protocol Last Admin: 08/06/17 12:15 Dose: Not Given Nystatin (Nystatin Oral Susp) 5 ml PO QID [facility] Last Admin: 08/06/17 14:43 Dose: Not Given Ondansetron HCl (Zofran Inj) 4 mg IVP Q6 PRN PRN Reason: Nausea/Vomiting - Labs Labs: 08/06/17 08:01 08/06/17 08:01 Attending/Attestation - Attestation I have personally seen and examined this patient.: Yes I have fully participated in the care of the patient.: Yes I have reviewed all pertinent clinical information, including history, physical exam and plan: Yes Notes (Text): 08/06/17 16:27 Medical attending: Patient was seen and examined by me, agrees the above note by medical office technician. Again the patient had many questions, many concerns, and many complaints about a great many things.. We did our best to answer the patient's questions. His blood cultures are negative for 24 hours, or continuing with the antibiotics as before. The nurses explained to me that the patient is not entirely compliant with his medications. He didn't want morphine anymore, he is requesting Dilaudid, I explained to him that we would discontinue the morphine that we would not be giving the patient large amounts of Dilaudid as he wants. Our plans are to discharge the patient sometime during the weekend. Thank you very much, Joe Ac
[2017-08-06 09:57] LABS: BASOPHIL 1 % (0-2); EOSINOPHIL 7 % (0-4); METAMYELOCYTE 1 % (0-0); MYELOCYTE 2 % (0-0); NEUTROPHIL 68 % (50-75); TOTAL CELLS COUNTED 100
[2017-08-06] MEDS: Nystatin 100,000 Units/ml Oral Susp 5 ml UD PO SCH ×4 (11:37→22:03)
[2017-08-06] MEDS: Enoxaparin 30 mg Syringe SC SCH (11:37)
[2017-08-06] MEDS: Hydrocortisone 2.5% Rectal Cream(30 gm) PR SCH ×2 (11:39→18:48)
[2017-08-06] MEDS: Cefepime IV 1 gm in Dextrose 1 GM/50 ML BAG IVPB SCH (13:35)
[2017-08-06] MEDS ORDERED: POLYETHYLENE GLYCOL 3350 17 GM/Dose PACKET PO ONE (14:15)
--- NOTE | 2017-08-06 16:08 | CP.PCM.PN ---
Subjective - Date & Time of Evaluation Date of Evaluation: 08/06/17 Time of Evaluation: 16:05 - Subjective Subjective: Did not allow full dialysis 08/05- will increase UF rate in AM LE wounds being addressed No c/o n, v, f, chill, diarhea, SOB, CPs Objective - Vital Signs/Intake and Output Vital Signs (last 24 hours): Temp Pulse Resp BP Pulse Ox 98.3 F 75 18 108/66 96 08/06/17 07:10 08/06/17 07:10 08/06/17 07:10 08/06/17 07:10 08/06/17 07:10 - Medications Medications: Current Medications Acetaminophen (Tylenol 325mg Tab) 650 mg PO Q6 PRN PRN Reason: Fever >100.4 F Calamine (Calamine Lotion) 1 ml TOP PRN PRN PRN Reason: Dry skin Last Admin: 08/04/17 13:28 Dose: 1 ml Enoxaparin Sodium (Lovenox) 30 mg SC DAILY [facility] Last Admin: 08/06/17 11:37 Dose: 30 mg Epoetin Ventura (Procrit) 10,000 unit IV TTS [facility] Stop: 08/10/17 10:01 Last Admin: 08/05/17 12:14 Dose: 10,000 unit Famotidine (Pepcid) 20 mg PO DAILY [facility] Last Admin: 08/06/17 11:38 Dose: 20 mg Heparin Sodium (Porcine) (Heparin) 2,000 units IVP TTS [facility] Stop: 08/10/17 10:01 Last Admin: 08/05/17 09:43 Dose: 2,000 units Hydrocortisone (Anusol-Hc) 1 gm PA BID [facility] Last Admin: 08/06/17 11:39 Dose: 1 applic Hydromorphone HCl (Dilaudid) 1 mg IVP Q4H PRN PRN Reason: Pain, severe (8-10) Vancomycin HCl 1 gm/ Sodium (Chloride) 250 mls @ 166.7 mls/hr IVPB TTS [facility] Last Admin: 08/05/17 13:49 Dose: 166.7 mls/hr Cefepime HCl (Maxipime Iv 1 Gm Premix) 1 gm in 50 mls @ 100 mls/hr IVPB Q24H [facility] Stop: 08/08/17 13:29 Last Admin: 08/06/17 13:35 Dose: 100 mls/hr Insulin Human Regular (Novolin R) 0 unit SC ACHS [facility] PRN Reason: Protocol Last Admin: 08/06/17 12:15 Dose: Not Given Nystatin (Nystatin Oral Susp) 5 ml PO QID [facility] Last Admin: 08/06/17 14:43 Dose: Not Given Ondansetron HCl (Zofran Inj) 4 mg IVP Q6 PRN PRN Reason: Nausea/Vomiting - Labs Labs: 08/06/17 08:01 08/06/17 08:01 - Constitutional Appears: No Acute Distress, Chronically Ill - Head Exam Head Exam: ATRAUMATIC, NORMAL INSPECTION - Eye Exam Eye Exam: EOMI, Normal appearance - Neck Exam Neck Exam: Normal Inspection. absent: Tenderness - Respiratory Exam Respiratory Exam: Clear to Ausculation Bilateral, NORMAL BREATHING PATTERN - Cardiovascular Exam Cardiovascular Exam: REGULAR RHYTHM, +S1 - GI/Abdominal Exam GI & Abdominal Exam: Soft, Tenderness - Extremities Exam Extremities Exam: Pedal Edema, Tenderness - Neurological Exam Neurological Exam: Alert, CN II-XII Intact - Skin Skin Exam: Dry, Warm Assessment and Plan (1) Cellulitis and abscess of left leg Status: Acute (2) Lymphedema in adult patient Status: Acute (3) ESRD on hemodialysis Status: Chronic - Assessment and Plan (Free Text) Plan: Dialysis in AM; increase UF Wound care
[2017-08-06] MEDS: HYDROmorphone 1 mg/ml ISec IVP PRN (18:56)
[2017-08-07] MEDS: HYDROmorphone 1 mg/ml ISec IVP PRN ×3 (00:47→10:34)
[2017-08-07] MEDS: (Novolin R) Insulin Human Regular 100 units/ml vial SC SCH ×4 (07:57→21:41)
--- NOTE | 2017-08-07 09:14 | CP.PCM.PN ---
Subjective - Date & Time of Evaluation Date of Evaluation: 08/07/17 Time of Evaluation: 08:45 - Subjective Subjective: Patient was seen and examined by me We again had a long long conversation with regards to a great many things... He reports the pain in his left knee has decreased substantially. He DID NOT have pain today behind the left thigh, knee or calf area when I saw and examined him. He intially came in with this chief complaint. Also recent dopplers negative for DVT Denied fevers, denied chills. Denied shortness of breath, denied chest pain. He reports a lot of tenderness with the toes particularly in his right foot being sensitive. Blood cultures negative for 48 hrs now. After some discussion we are going to try to DC tommorow. Objective - Vital Signs/Intake and Output Vital Signs (last 24 hours): Temp Pulse Resp BP Pulse Ox 98.2 F 76 20 114/68 99 08/07/17 07:00 08/07/17 07:00 08/07/17 07:00 08/07/17 07:00 08/07/17 07:00 Intake and Output: 08/07/17 08/07/17 06:59 18:59 Intake Total 520 Output Total 550 Balance -30 - Medications Medications: Current Medications Acetaminophen (Tylenol 325mg Tab) 650 mg PO Q6 PRN PRN Reason: Fever >100.4 F Calamine (Calamine Lotion) 1 ml TOP PRN PRN PRN Reason: Dry skin Last Admin: 08/04/17 13:28 Dose: 1 ml Enoxaparin Sodium (Lovenox) 30 mg SC DAILY [facility] Last Admin: 08/06/17 11:37 Dose: 30 mg Epoetin Ventura (Procrit) 10,000 unit IV TTS [facility] Stop: 08/10/17 10:01 Last Admin: 08/05/17 12:14 Dose: 10,000 unit Famotidine (Pepcid) 20 mg PO DAILY [facility] Last Admin: 08/06/17 11:38 Dose: 20 mg Heparin Sodium (Porcine) (Heparin) 2,000 units IVP TTS [facility] Stop: 08/10/17 10:01 Last Admin: 08/05/17 09:43 Dose: 2,000 units Hydrocortisone (Anusol-Hc) 1 gm LA BID [facility] Last Admin: 08/06/17 18:48 Dose: 1 applic Hydromorphone HCl (Dilaudid) 1 mg IVP Q4H PRN PRN Reason: Pain, severe (8-10) Last Admin: 08/07/17 06:23 Dose: 1 mg Vancomycin HCl 1 gm/ Sodium (Chloride) 250 mls @ 166.7 mls/hr IVPB TTS [facility] Last Admin: 08/05/17 13:49 Dose: 166.7 mls/hr Cefepime HCl (Maxipime Iv 1 Gm Premix) 1 gm in 50 mls @ 100 mls/hr IVPB Q24H [facility] Stop: 08/08/17 13:29 Last Admin: 08/06/17 13:35 Dose: 100 mls/hr Insulin Human Regular (Novolin R) 0 unit SC ACHS [facility] PRN Reason: Protocol Last Admin: 08/07/17 07:57 Dose: Not Given Nystatin (Nystatin Oral Susp) 5 ml PO QID [facility] Last Admin: 08/06/17 22:03 Dose: Not Given Ondansetron HCl (Zofran Inj) 4 mg IVP Q6 PRN PRN Reason: Nausea/Vomiting - Labs Labs: 08/06/17 08:01 08/06/17 08:01 - Constitutional Appears: No Acute Distress, Unkempt, Chronically Ill - Head Exam Head Exam: NORMAL INSPECTION, NORMOCEPHALIC - Eye Exam Eye Exam: EOMI, Normal appearance - ENT Exam ENT Exam: Mucous Membranes Moist - Respiratory Exam Respiratory Exam: Clear to Ausculation Bilateral, NORMAL BREATHING PATTERN - Cardiovascular Exam Cardiovascular Exam: REGULAR RHYTHM - GI/Abdominal Exam GI & Abdominal Exam: Distended, Soft, Normal Bowel Sounds. absent: Firm, Guarding, Rigid, Tenderness - Extremities Exam Extremities Exam: Calf Tenderness, Joint Swelling, Pedal Edema, Tenderness. absent: Full ROM, Normal Capillary Refill, Normal Inspection Additional comments: As mentioned previously the patient has extensive lymphedema of the legs - particularly the left leg and above the level of the knee. He did not have pain with palpation behind the knee today. Assessment and Plan - Assessment and Plan (Free Text) Assessment: 1.) Leukocytosis - questionable cellulitis. 08/07: As mentioned previously the patient has a long list of concerns and came in believing he had cellulitis or infection of the lower extremities. It is difficult to say since his left leg - particularly the left thigh and knee has many skin irregularity as well as extensive lymphedema. His blood cultures are now negative 48hrs. Pending blood work this AM. Currently continue with the IV Cefepime as well as IV Vanco * WBC (08/06) 15.1; (08/05) 12.8; (08/04) 16.1 * Continue Cefepime 1 gm daily * Continue Vancomycin daily * f/u blood cultures (must be negative for 48 hours) 2.) Dry skin secondary to Bilateral Lower extremity leg edema - 1mg Dilaudid PRN for severe pain - Morphine 2mg PRN for moderate pain --> discontinued 08/06/17 - f/u venous doppler - Matheus Vinson - Carlos 3.) ESRD - Dialysis today 08/05/17 - Nephrology Consult: Dr. Hamliton --> help appreciated 4.) Pre-Diabetes - HA1c (01/14/17): 6.7 - ACCUchecks - ISS 5.) Prophylaxis - Pepcid 20mg - Lovenox 30mg
[2017-08-07] MEDS: Hydrocortisone 2.5% Rectal Cream(30 gm) PR SCH ×2 (10:00→18:59)
[2017-08-07] MEDS ORDERED: Cefepime 1 GM in Sodium Chloride 0.9% 50 ML IVPB ONE (10:00)
--- NOTE | 2017-08-07 11:16 | CP.PCM.PN ---
Subjective - Date & Time of Evaluation Date of Evaluation: 08/07/17 Time of Evaluation: 11:14 - Subjective Subjective: Notes reviewed Comfortable in bed Offers no new complaints Tolerating abx Chronic skin itch - using lotion provided Minimal mobility, no pain No fever or chills today No cp or palp ROS negative other than above Objective - Vital Signs/Intake and Output Vital Signs (last 24 hours): Temp Pulse Resp BP Pulse Ox 98.2 F 76 20 114/68 99 08/07/17 07:00 08/07/17 07:00 08/07/17 07:00 08/07/17 07:00 08/07/17 07:00 Intake and Output: 08/07/17 08/07/17 06:59 18:59 Intake Total 520 Output Total 550 Balance -30 - Medications Medications: Current Medications Acetaminophen (Tylenol 325mg Tab) 650 mg PO Q6 PRN PRN Reason: Fever >100.4 F Calamine (Calamine Lotion) 1 ml TOP PRN PRN PRN Reason: Dry skin Last Admin: 08/04/17 13:28 Dose: 1 ml Enoxaparin Sodium (Lovenox) 30 mg SC DAILY [facility] Last Admin: 08/06/17 11:37 Dose: 30 mg Epoetin Ventura (Procrit) 10,000 unit IV TTS [facility] Stop: 08/10/17 10:01 Last Admin: 08/05/17 12:14 Dose: 10,000 unit Famotidine (Pepcid) 20 mg PO DAILY [facility] Last Admin: 08/06/17 11:38 Dose: 20 mg Heparin Sodium (Porcine) (Heparin) 2,000 units IVP TTS [facility] Stop: 08/10/17 10:01 Last Admin: 08/05/17 09:43 Dose: 2,000 units Hydrocortisone (Anusol-Hc) [address] BID [facility] Last Admin: 08/06/17 18:48 Dose: 1 applic Hydromorphone HCl (Dilaudid) 1 mg IVP Q4H PRN PRN Reason: Pain, severe (8-10) Last Admin: 08/07/17 10:34 Dose: 1 mg Vancomycin HCl 1 gm/ Sodium (Chloride) 250 mls @ 166.7 mls/hr IVPB TTS [facility] Last Admin: 08/05/17 13:49 Dose: 166.7 mls/hr Cefepime HCl (Maxipime Iv 1 Gm Premix) 1 gm in 50 mls @ 100 mls/hr IVPB Q24H [facility] Stop: 08/08/17 13:29 Last Admin: 08/06/17 13:35 Dose: 100 mls/hr Insulin Human Regular (Novolin R) 0 unit SC ACHS JOSSIE PRN Reason: Protocol Last Admin: 08/07/17 07:57 Dose: Not Given Nystatin (Nystatin Oral Susp) 5 ml PO QID [facility] Last Admin: 08/06/17 22:03 Dose: Not Given Ondansetron HCl (Zofran Inj) 4 mg IVP Q6 PRN PRN Reason: Nausea/Vomiting - Labs Labs: 08/06/17 08:01 08/06/17 08:01 - Constitutional Appears: Well, Non-toxic - Head Exam Head Exam: ATRAUMATIC, NORMAL INSPECTION - Eye Exam Eye Exam: EOMI, Normal appearance - ENT Exam ENT Exam: Mucous Membranes Moist - Cardiovascular Exam Cardiovascular Exam: +S1, +S2. absent: Rubs - GI/Abdominal Exam GI & Abdominal Exam: Soft, Normal Bowel Sounds - Extremities Exam Extremities Exam: Pedal Edema, Tenderness - Neurological Exam Neurological Exam: Alert, Awake, Oriented x3 - Skin Skin Exam: Intact, Warm Assessment and Plan (1) Cellulitis Status: Acute (2) ESRD (end stage renal disease) Status: Acute (3) Lymphedema in adult patient Status: Acute (4) Hypertension Status: Acute (5) Muscle weakness Status: Acute (6) Secondary hyperparathyroidism Status: Acute (7) Anemia Status: Chronic - Assessment and Plan (Free Text) Assessment: Dialysis scheduled today UF as tolerated COntinue abx as ordered Monitor bp on hd
[2017-08-07] MEDS: Nystatin 100,000 Units/ml Oral Susp 5 ml UD PO SCH ×3 (11:31→21:01)
[2017-08-07] MEDS: Epoetin Alfa 10,000 unit/ml Dialysis IV SCH (14:07)
[2017-08-07 14:56] LABS: BASO # 0.1 K/uL (0.0-0.2); BASO % 0.6 % (0.0-2.0); EOS # 0.6 K/uL (0.0-0.7); HEMATOCRIT 26.5 % (35.0-51.0); LYMPH # 1.1 K/uL (1.0-4.3); LYMPH % 6.9 % (20.0-40.0); MEAN CELL VOLUME 75.6 fL (80.0-94.0); MEAN CORPUSCULAR HGB CONC 31.8 g/dL (33.0-37.0); MEAN PLATELET VOLUME 7.5 fL (7.2-11.7); MONO % 6.6 % (0.0-10.0); PLATELET COUNT 351 K/uL (130-400); RED CELL DISTRIBUTION WIDTH 17.5 % (11.5-14.5); WHITE BLOOD COUNT 15.7 K/uL (4.8-10.8)
[2017-08-07 15:14] LABS: EOSINOPHIL 5 % (0-4); NEUTROPHIL 78 % (50-75); POTASSIUM 4.3 mmol/L (3.6-5.2); TOTAL CELLS COUNTED 100
[2017-08-07 15:16] LABS: BILIRUBIN,TOTAL 0.7 mg/dL (0.2-1.3)
[2017-08-07 15:17] LABS: ALB/GLOB RATIO 0.7 (1.0-2.1); CALCIUM 9.3 mg/dl (8.6-10.4); MAGNESIUM 1.8 mg/dL (1.6-2.3); PHOSPHOROUS 6.3 mg/dL (2.5-4.5); TOTAL PROTEIN 7.9 g/dL (6.3-8.3)
[2017-08-07 15:18] LABS: LARGE PLATELETS PRESENT
[2017-08-07] MEDS: HYDROmorphone 0.5 mg/0.5 ml ISec IVP PRN ×2 (18:59→22:57)
[2017-08-07] MEDS: Cefepime IV 1 gm in Dextrose 1 GM/50 ML BAG IVPB SCH (18:59)
[2017-08-08] MEDS: HYDROmorphone 0.5 mg/0.5 ml ISec IVP PRN ×5 (05:01→22:32)
[2017-08-08 07:22] LABS: BASO # 0.1 K/uL (0.0-0.2); BASO % 0.5 % (0.0-2.0); EOS # 0.5 K/uL (0.0-0.7); EOS % 3.2 % (0.0-4.0); HEMATOCRIT 25.7 % (35.0-51.0); LYMPH # 0.9 K/uL (1.0-4.3); LYMPH % 5.8 % (20.0-40.0); MEAN CELL VOLUME 75.2 fL (80.0-94.0); MEAN CORPUSCULAR HEMOGLOBIN 23.8 pg (27.0-31.0); MEAN CORPUSCULAR HGB CONC 31.6 g/dL (33.0-37.0); MONO # 1.1 K/uL (0.0-0.8); MONO % 7.3 % (0.0-10.0); PLATELET COUNT 323 K/uL (130-400); RED CELL DISTRIBUTION WIDTH 17.4 % (11.5-14.5); WHITE BLOOD COUNT 15.8 K/uL (4.8-10.8)
[2017-08-08] MEDS: (Novolin R) Insulin Human Regular 100 units/ml vial SC SCH ×3 (07:50→21:31)
[2017-08-08 08:13] LABS: ALB/GLOB RATIO 0.7 (1.0-2.1); BILIRUBIN,TOTAL 0.6 mg/dL (0.2-1.3); MAGNESIUM 1.9 mg/dL (1.6-2.3); PHOSPHOROUS 5.7 mg/dL (2.5-4.5); POTASSIUM 4.3 mmol/L (3.6-5.2); TOTAL PROTEIN 7.4 g/dL (6.3-8.3)
[2017-08-08 09:16] LABS: NEUTROPHIL 85 % (50-75); TOTAL CELLS COUNTED 100
[2017-08-08 09:19] LABS: LARGE PLATELETS PRESENT
[2017-08-08 09:20] LABS: GIANT PLATELETS PRESENT
[2017-08-08] MEDS: Nystatin 100,000 Units/ml Oral Susp 5 ml UD PO SCH ×4 (09:26→21:29)
[2017-08-08] MEDS: Enoxaparin 30 mg Syringe SC SCH (09:26)
--- NOTE | 2017-08-08 09:55 | CP.PCM.PN ---
Subjective - Date & Time of Evaluation Date of Evaluation: 08/08/17 Time of Evaluation: 09:45 - Subjective Subjective: Patient was seen and examined. He explains that the swelling around his knees - particularly behind his knees has decreased significantly. He does not have pain behind the right knee anymore. Swelling has decreased. Very likeyhood the HD has helped. Blood culture negative 3 days. PT has advised for [facility]. Will reach out to case workers this Wednesday. Objective - Vital Signs/Intake and Output Vital Signs (last 24 hours): Temp Pulse Resp BP Pulse Ox 98.3 F 75 18 125/66 95 08/08/17 08:05 08/08/17 08:05 08/08/17 08:05 08/08/17 08:05 08/08/17 08:05 Intake and Output: 08/08/17 08/08/17 06:59 18:59 Intake Total 120 Output Total 250 Balance -130 - Medications Medications: Current Medications Acetaminophen (Tylenol 325mg Tab) 650 mg PO Q6 PRN PRN Reason: Fever >100.4 F Calamine (Calamine Lotion) 1 ml TOP PRN PRN PRN Reason: Dry skin Last Admin: 08/04/17 13:28 Dose: 1 ml Enoxaparin Sodium (Lovenox) 30 mg SC DAILY [facility] Last Admin: 08/08/17 09:26 Dose: 30 mg Epoetin Ventura (Procrit) 10,000 unit IV TTS [facility] Stop: 08/10/17 10:01 Last Admin: 08/07/17 14:07 Dose: 10,000 unit Famotidine (Pepcid) 20 mg PO DAILY [facility] Last Admin: 08/08/17 09:27 Dose: 20 mg Heparin Sodium (Porcine) (Heparin) 2,000 units IVP TTS [facility] Stop: 08/10/17 10:01 Last Admin: 08/07/17 14:07 Dose: 2,000 units Hydrocortisone (Anusol-Hc) 1 gm OR BID [facility] Last Admin: 08/07/17 18:59 Dose: 1 applic Hydromorphone HCl (Dilaudid) 1 mg IVP Q4H PRN PRN Reason: Pain, severe (8-10) Last Admin: 08/07/17 10:34 Dose: 1 mg Hydromorphone HCl (Dilaudid) 1 mg IVP Q4H PRN PRN Reason: Pain, severe (8-10) Last Admin: 08/08/17 09:25 Dose: 1 mg Vancomycin HCl 1 gm/ Sodium (Chloride) 250 mls @ 166.7 mls/hr IVPB TTS [facility] Last Admin: 08/07/17 21:01 Dose: 166.7 mls/hr Cefepime HCl (Maxipime Iv 1 Gm Premix) 1 gm in 50 mls @ 100 mls/hr IVPB Q24H [facility] Stop: 08/08/17 13:29 Last Admin: 08/07/17 18:59 Dose: 100 mls/hr Insulin Human Regular (Novolin R) 0 unit SC ACHS JOSSIE PRN Reason: Protocol Last Admin: 08/08/17 07:50 Dose: Not Given Nystatin (Nystatin Oral Susp) 5 ml PO QID [facility] Last Admin: 08/08/17 09:26 Dose: 5 ml Ondansetron HCl (Zofran Inj) 4 mg IVP Q6 PRN PRN Reason: Nausea/Vomiting - Labs Labs: 08/08/17 07:16 08/08/17 07:16 - Constitutional Appears: Well, No Acute Distress - Head Exam Head Exam: NORMAL INSPECTION, NORMOCEPHALIC - Eye Exam Eye Exam: EOMI, Normal appearance - ENT Exam ENT Exam: Mucous Membranes Moist - Cardiovascular Exam Cardiovascular Exam: REGULAR RHYTHM - GI/Abdominal Exam GI & Abdominal Exam: Distended, Soft, Normal Bowel Sounds. absent: Firm, Guarding, Rigid, Tenderness - Neurological Exam Neurological Exam: Abnormal Gait, Alert, Awake, CN II-XII Intact, Oriented x3 Neuro motor strength exam: Left Upper Extremity: 5, Right Upper Extremity: 5 - Psychiatric Exam Psychiatric exam: Normal Affect, Normal Mood - Skin Skin Exam: Normal Color, Warm Assessment and Plan - Assessment and Plan (Free Text) Assessment: 1.) Leukocytosis - questionable cellulitis. 08/08: Plan is to get patient to [facility], he will need to continue IV abx for several more days while there. It maybe that because he was missing HD that he had increased pain from fluid build up. 08/07: As mentioned previously the patient has a long list of concerns and came in believing he had cellulitis or infection of the lower extremities. It is difficult to say since his left leg - particularly the left thigh and knee has many skin irregularity as well as extensive lymphedema. His blood cultures are now negative 48hrs. Pending blood work this AM. Currently continue with the IV Cefepime as well as IV Vanco * WBC (08/06) 15.1; (08/05) 12.8; (08/04) 16.1 * Continue Cefepime 1 gm daily * Continue Vancomycin daily * f/u blood cultures (must be negative for 48 hours) 2.) Dry skin secondary to Bilateral Lower extremity leg edema 08/08 Improving - 1mg Dilaudid PRN for severe pain - Morphine 2mg PRN for moderate pain --> discontinued 08/06/17 - f/u venous doppler - Matheus Vinson - Carlos 3.) ESRD - Dialysis today 08/05/17 - Nephrology Consult: Dr. Hamilton --> help appreciated 4.) Pre-Diabetes - HA1c (01/14/17): 6.7 - ACCUchecks - ISS 5.) Prophylaxis - Pepcid 20mg - Lovenox 30mg
[2017-08-08] MEDS: Hydrocortisone 2.5% Rectal Cream(30 gm) PR SCH ×2 (10:58→18:24)
[2017-08-08] MEDS ORDERED: Cefepime 1 GM in Sodium Chloride 0.9% 50 ML IVPB ONE (11:06)
[2017-08-08] MEDS: Cefepime IV 1 gm in Dextrose 1 GM/50 ML BAG IVPB SCH (12:26)
[2017-08-09] MEDS: HYDROmorphone 0.5 mg/0.5 ml ISec IVP PRN ×2 (02:26→06:46)
[2017-08-09 07:23] LABS: BASO # 0.1 K/uL (0.0-0.2); BASO % 0.3 % (0.0-2.0); EOS # 0.5 K/uL (0.0-0.7); EOS % 3.1 % (0.0-4.0); HEMATOCRIT 25.4 % (35.0-51.0); LYMPH # 0.8 K/uL (1.0-4.3); LYMPH % 5.3 % (20.0-40.0); MEAN CELL VOLUME 75.6 fL (80.0-94.0); MEAN CORPUSCULAR HEMOGLOBIN 24.1 pg (27.0-31.0); MEAN CORPUSCULAR HGB CONC 31.9 g/dL (33.0-37.0); MEAN PLATELET VOLUME 7.1 fL (7.2-11.7); MONO % 6.4 % (0.0-10.0); PLATELET COUNT 362 K/uL (130-400); RED CELL DISTRIBUTION WIDTH 17.3 % (11.5-14.5); WHITE BLOOD COUNT 15.6 K/uL (4.8-10.8)
[2017-08-09] MEDS: (Novolin R) Insulin Human Regular 100 units/ml vial SC SCH ×4 (08:24→22:05)
[2017-08-09 08:26] LABS: POTASSIUM 4.3 mmol/L (3.6-5.2)
[2017-08-09 08:28] LABS: ALB/GLOB RATIO 0.7 (1.0-2.1); BILIRUBIN,TOTAL 0.5 mg/dL (0.2-1.3); PHOSPHOROUS 5.7 mg/dL (2.5-4.5); TOTAL PROTEIN 7.9 g/dL (6.3-8.3)
[2017-08-09 08:29] LABS: CALCIUM 8.9 mg/dl (8.6-10.4); MAGNESIUM 1.8 mg/dL (1.6-2.3)
[2017-08-09 08:56] LABS: EOSINOPHIL 3 % (0-4); MYELOCYTE 1 % (0-0); NEUTROPHIL 79 % (50-75); TOTAL CELLS COUNTED 100
--- NOTE | 2017-08-09 09:49 | CP.PCM.PN ---
<Alyce Catherine - Last Filed: 08/09/17 16:52> Subjective - Date & Time of Evaluation Date of Evaluation: 08/09/17 Time of Evaluation: 07:30 - Subjective Subjective: Medicine Progress Note: Patient was seen and examined at bedside in the AM. Patient states he still has bilateral lower leg pain. Patient states the swelling in between his toes has improved but are still sensitive to touch. Patient states he wants more pain medication and a regular diet. Patient states he does not want to go to subacute rehab and after being discharged would like to go home. Objective - Vital Signs/Intake and Output Vital Signs (last 24 hours): Temp Pulse Resp BP Pulse Ox 98.5 F 77 18 132/67 96 08/09/17 08:10 08/09/17 08:10 08/09/17 08:10 08/09/17 08:10 08/09/17 08:10 Intake and Output: 08/09/17 08/09/17 06:59 18:59 Intake Total 240 Output Total 250 Balance -10 - Medications Medications: Current Medications Acetaminophen (Tylenol 325mg Tab) 650 mg PO Q6 PRN PRN Reason: Fever >100.4 F Calamine (Calamine Lotion) 1 ml TOP PRN PRN PRN Reason: Dry skin Last Admin: 08/04/17 13:28 Dose: 1 ml Enoxaparin Sodium (Lovenox) 30 mg SC DAILY [facility] Last Admin: 08/08/17 09:26 Dose: 30 mg Epoetin Ventura (Procrit) 10,000 unit IV TTS [facility] Stop: 08/10/17 10:01 Last Admin: 08/07/17 14:07 Dose: 10,000 unit Famotidine (Pepcid) 20 mg PO DAILY [facility] Last Admin: 08/08/17 09:27 Dose: 20 mg Hydrocortisone (Anusol-Hc) 1 gm RI BID [facility] Last Admin: 08/08/17 18:24 Dose: Not Given Hydromorphone HCl (Dilaudid) 1 mg IVP Q4H PRN PRN Reason: Pain, severe (8-10) Last Admin: 08/09/17 06:46 Dose: 1 mg Vancomycin HCl 1 gm/ Sodium (Chloride) 250 mls @ 166.7 mls/hr IVPB TTS [facility] Last Admin: 08/07/17 21:01 Dose: 166.7 mls/hr Aztreonam 1 gm/ Sodium (Chloride) 100 mls @ 200 mls/hr IVPB Q12H [facility] Clindamycin Phosphate 600 mg/ (Sodium Chloride) 54 mls @ 100 mls/hr IVPB Q8H [facility] Insulin Human Regular (Novolin R) 0 unit SC ACHS JOSSIE PRN Reason: Protocol Last Admin: 08/09/17 08:24 Dose: Not Given Nystatin (Nystatin Oral Susp) 5 ml PO QID [facility] Last Admin: 08/08/17 21:29 Dose: 5 ml Ondansetron HCl (Zofran Inj) 4 mg IVP Q6 PRN PRN Reason: Nausea/Vomiting - Labs Labs: 08/09/17 07:11 08/09/17 07:11 - Constitutional Appears: No Acute Distress - Head Exam Head Exam: ATRAUMATIC, NORMAL INSPECTION, NORMOCEPHALIC - Eye Exam Eye Exam: EOMI, Normal appearance, PERRL Pupil Exam: NORMAL ACCOMODATION - ENT Exam ENT Exam: Mucous Membranes Moist - Respiratory Exam Respiratory Exam: Clear to Ausculation Bilateral, NORMAL BREATHING PATTERN. absent: Rales, Rhonchi, Wheezes, Stridor - Cardiovascular Exam Cardiovascular Exam: REGULAR RHYTHM, RRR, +S1, +S2 - GI/Abdominal Exam GI & Abdominal Exam: Soft, Normal Bowel Sounds. absent: Tenderness - Extremities Exam Extremities Exam: Joint Swelling (bilateral lower extremity lymphedema ), Tenderness (bilateral lower extremity tenderness ) - Neurological Exam Neurological Exam: Alert, Awake, Oriented x3 - Skin Skin Exam: Dry, Intact, Warm Additional comments: calamine lotion on bilateral lower extremities Assessment and Plan - Assessment and Plan (Free Text) Plan: 1.) Leukocytosis * WBC (08/09) 15.6; 08/08 15.8; (08/07) 15.7; (08/06) 15.1; (08/05) 12.8; (08/04) 16.1 * Aztreonam started 08/09 * Clindamycin started 08/09 * f/u blood cultures - no growth - preliminary 2.) Dry skin secondary to Bilateral Lower extremity leg edema - 2mg Dilaudid PRN for severe pain - Calamine lotion - Aloe Vera 3.) ESRD - Dialysis today Wednesday, , Wednesday - Nephrology Consult: Dr. Hamilton --> help appreciated 4.) Pre-Diabetes - HA1c (01/14/17): 6.7 - ACCUchecks - ISS - Diabetic Education 5.) Prophylaxis - Pepcid 20mg - Lovenox 30mg - Physical Therapy - Case Management: Patient refuses subacute rehab Case Discussed with Dr. Apolinar Catherine PGY-1 <Yuriy Jiang - Last Filed: 08/09/17 17:24> Objective - Vital Signs/Intake and Output Vital Signs (last 24 hours): Temp Pulse Resp BP Pulse Ox 97.2 F L 79 18 124/70 98 08/09/17 15:44 08/09/17 15:44 08/09/17 15:44 08/09/17 15:44 08/09/17 15:44 Intake and Output: 08/09/17 08/09/17 06:59 18:59 Intake Total 240 400 Output Total 250 600 Balance -10 -200 - Medications Medications: Current Medications Acetaminophen (Tylenol 325mg Tab) 650 mg PO Q6 PRN PRN Reason: Fever >100.4 F Calamine (Calamine Lotion) 1 ml TOP PRN PRN PRN Reason: Dry skin Last Admin: 08/04/17 13:28 Dose: 1 ml Enoxaparin Sodium (Lovenox) 30 mg SC DAILY [facility] Last Admin: 08/09/17 11:00 Dose: 30 mg Epoetin Ventura (Procrit) 10,000 unit IV TTS [facility] Stop: 08/10/17 10:01 Last Admin: 08/07/17 14:07 Dose: 10,000 unit Famotidine (Pepcid) 20 mg PO DAILY [facility] Last Admin: 08/09/17 11:00 Dose: 20 mg Hydrocortisone (Anusol-Hc) 1 gm RI BID [facility] Last Admin: 08/09/17 11:00 Dose: Not Given Hydromorphone HCl (Dilaudid) 2 mg IVP Q4H PRN PRN Reason: Pain, severe (8-10) Vancomycin HCl 1 gm/ Sodium (Chloride) 250 mls @ 166.7 mls/hr IVPB TTS [facility] Last Admin: 08/07/17 21:01 Dose: 166.7 mls/hr Aztreonam 1 gm/ Sodium (Chloride) 100 mls @ 200 mls/hr IVPB Q12H [facility] Last Admin: 08/09/17 10:48 Dose: 200 mls/hr Clindamycin Phosphate 600 mg/ (Sodium Chloride) 54 mls @ 100 mls/hr IVPB Q8H [facility] Last Admin: 08/09/17 10:30 Dose: 100 mls/hr Insulin Human Regular (Novolin R) 0 unit SC ACHS JOSSIE PRN Reason: Protocol Last Admin: 08/09/17 12:30 Dose: Not Given Nystatin (Nystatin Oral Susp) 5 ml PO QID [facility] Last Admin: 08/09/17 14:52 Dose: 5 ml Ondansetron HCl (Zofran Inj) 4 mg IVP Q6 PRN PRN Reason: Nausea/Vomiting - Labs Labs: 08/09/17 07:11 08/09/17 07:11 Attending/Attestation - Attestation I have personally seen and examined this patient.: Yes I have fully participated in the care of the patient.: Yes I have reviewed all pertinent clinical information, including history, physical exam and plan: Yes Notes (Text): 08/09/17 17:21 Patient was seen and examined at bedside with the resident Patient complains of right lower extremity pain and swelling. Patient has persistent leukocytosis. We will change the antibiotics to Azactam and clindamycin to which the patient has responded well in the past Follow-up hemoglobin A1c in the morning. The previous value of 6.7 was done in December. Patient refusing to be placed on diabetic diet. I discussed the plan of care with the resident and agree with the history and physical and assessment/plan documented.
[2017-08-09] MEDS: Aztreonam 1 GM in Sodium Chloride 0.9% 100 ML IVPB SCH ×2 (10:48→21:38)
[2017-08-09] MEDS: Hydrocortisone 2.5% Rectal Cream(30 gm) PR SCH ×2 (11:00→18:22)
[2017-08-09] MEDS: Nystatin 100,000 Units/ml Oral Susp 5 ml UD PO SCH ×4 (11:00→21:39)
[2017-08-09] MEDS: Enoxaparin 30 mg Syringe SC SCH (11:00)
--- NOTE | 2017-08-09 12:49 | CP.PCM.PN ---
Subjective - Date & Time of Evaluation Date of Evaluation: 08/09/17 Time of Evaluation: 12:46 - Subjective Subjective: LE pain better wants more pain meds stable dialysis 08/07 Iron sat only 8% all C+S neg Objective - Vital Signs/Intake and Output Vital Signs (last 24 hours): Temp Pulse Resp BP Pulse Ox 98.5 F 77 18 132/67 96 08/09/17 08:10 08/09/17 08:10 08/09/17 08:10 08/09/17 08:10 08/09/17 08:10 Intake and Output: 08/09/17 08/09/17 06:59 18:59 Intake Total 240 Output Total 250 Balance -10 - Medications Medications: Current Medications Acetaminophen (Tylenol 325mg Tab) 650 mg PO Q6 PRN PRN Reason: Fever >100.4 F Calamine (Calamine Lotion) 1 ml TOP PRN PRN PRN Reason: Dry skin Last Admin: 08/04/17 13:28 Dose: 1 ml Enoxaparin Sodium (Lovenox) 30 mg SC DAILY [facility] Last Admin: 08/09/17 11:00 Dose: 30 mg Epoetin Ventura (Procrit) 10,000 unit IV TTS [facility] Stop: 08/10/17 10:01 Last Admin: 08/07/17 14:07 Dose: 10,000 unit Famotidine (Pepcid) 20 mg PO DAILY [facility] Last Admin: 08/09/17 11:00 Dose: 20 mg Hydrocortisone (Anusol-Hc) 1 gm LA BID [facility] Last Admin: 08/09/17 11:00 Dose: Not Given Hydromorphone HCl (Dilaudid) 1 mg IVP Q4H PRN PRN Reason: Pain, severe (8-10) Last Admin: 08/09/17 11:50 Dose: 1 mg Vancomycin HCl 1 gm/ Sodium (Chloride) 250 mls @ 166.7 mls/hr IVPB TTS [facility] Last Admin: 08/07/17 21:01 Dose: 166.7 mls/hr Aztreonam 1 gm/ Sodium (Chloride) 100 mls @ 200 mls/hr IVPB Q12H [facility] Last Admin: 08/09/17 10:48 Dose: 200 mls/hr Clindamycin Phosphate 600 mg/ (Sodium Chloride) 54 mls @ 100 mls/hr IVPB Q8H [facility] Last Admin: 08/09/17 10:30 Dose: 100 mls/hr Insulin Human Regular (Novolin R) 0 unit SC ACHS JOSSIE PRN Reason: Protocol Last Admin: 08/09/17 08:24 Dose: Not Given Nystatin (Nystatin Oral Susp) 5 ml PO QID [facility] Last Admin: 08/09/17 11:00 Dose: 5 ml Ondansetron HCl (Zofran Inj) 4 mg IVP Q6 PRN PRN Reason: Nausea/Vomiting - Labs Labs: 08/09/17 07:11 08/09/17 07:11 - Constitutional Appears: No Acute Distress, Chronically Ill - Head Exam Head Exam: ATRAUMATIC, NORMAL INSPECTION - Eye Exam Eye Exam: EOMI, Normal appearance - Neck Exam Neck Exam: Normal Inspection. absent: Tenderness - Respiratory Exam Respiratory Exam: Clear to Ausculation Bilateral, NORMAL BREATHING PATTERN - Cardiovascular Exam Cardiovascular Exam: REGULAR RHYTHM, +S1 - GI/Abdominal Exam GI & Abdominal Exam: Soft. absent: Tenderness - Extremities Exam Extremities Exam: Pedal Edema, Tenderness - Neurological Exam Neurological Exam: Awake, CN II-XII Intact - Skin Skin Exam: Dry, Rash, Warm Assessment and Plan (1) Cellulitis and abscess of left leg Status: Acute (2) Lymphedema in adult patient Status: Acute (3) ESRD on hemodialysis Status: Chronic - Assessment and Plan (Free Text) Plan: Dialysis TTS Wound management as per medicine discuss pain management with team
[2017-08-10] MEDS: (Novolin R) Insulin Human Regular 100 units/ml vial SC SCH ×4 (07:49→22:09)
--- NOTE | 2017-08-10 10:29 | CP.PCM.PN ---
<Alyce Catherine - Last Filed: 08/10/17 13:49> Subjective - Date & Time of Evaluation Date of Evaluation: 08/10/17 Time of Evaluation: 07:00 - Subjective Subjective: Medicine Progress Note: Patient was seen and examined at bedside in the AM. Patient was asleep comfortably in the bed. Patient states his leg swelling bilaterally has decreased and is less painful. Patient states he had just received his Dilaudid. Patient denies chest pain, shortness of breath, nausea and vomiting. Objective - Vital Signs/Intake and Output Vital Signs (last 24 hours): Temp Pulse Resp BP Pulse Ox 98.6 F 71 20 108/65 96 08/10/17 08:12 08/10/17 08:12 08/10/17 08:12 08/10/17 08:12 08/10/17 08:12 Intake and Output: 08/10/17 08/10/17 06:59 18:59 Intake Total 950 Output Total 450 Balance 500 - Medications Medications: Current Medications Acetaminophen (Tylenol 325mg Tab) 650 mg PO Q6 PRN PRN Reason: Fever >100.4 F Calamine (Calamine Lotion) 1 ml TOP PRN PRN PRN Reason: Dry skin Last Admin: 08/04/17 13:28 Dose: 1 ml Enoxaparin Sodium (Lovenox) 30 mg SC DAILY [facility] Last Admin: 08/09/17 11:00 Dose: 30 mg Famotidine (Pepcid) 20 mg PO DAILY [facility] Last Admin: 08/09/17 11:00 Dose: 20 mg Hydrocortisone (Anusol-Hc) 1 gm DC BID [facility] Last Admin: 08/09/17 18:22 Dose: 1 applic Hydromorphone HCl (Dilaudid) 2 mg IVP Q4H PRN PRN Reason: Pain, severe (8-10) Last Admin: 08/10/17 06:21 Dose: 2 mg Vancomycin HCl 1 gm/ Sodium (Chloride) 250 mls @ 166.7 mls/hr IVPB TTS [facility] Last Admin: 08/07/17 21:01 Dose: 166.7 mls/hr Aztreonam 1 gm/ Sodium (Chloride) 100 mls @ 200 mls/hr IVPB Q12H [facility] Last Admin: 08/09/17 21:38 Dose: 200 mls/hr Clindamycin Phosphate 600 mg/ (Sodium Chloride) 54 mls @ 100 mls/hr IVPB Q8H [facility] Last Admin: 08/10/17 02:04 Dose: 100 mls/hr Insulin Human Regular (Novolin R) 0 unit SC ACHS [facility] PRN Reason: Protocol Last Admin: 08/10/17 07:49 Dose: Not Given Nystatin (Nystatin Oral Susp) 5 ml PO QID [facility] Last Admin: 08/09/17 21:39 Dose: Not Given Ondansetron HCl (Zofran Inj) 4 mg IVP Q6 PRN PRN Reason: Nausea/Vomiting - Labs Labs: 08/09/17 07:11 08/09/17 07:11 - Constitutional Appears: No Acute Distress, Other (Morbidly Obese ) - Head Exam Head Exam: ATRAUMATIC, NORMAL INSPECTION, NORMOCEPHALIC - Eye Exam Eye Exam: EOMI, Normal appearance, PERRL Pupil Exam: NORMAL ACCOMODATION - ENT Exam ENT Exam: Mucous Membranes Moist - Respiratory Exam Respiratory Exam: Clear to Ausculation Bilateral, NORMAL BREATHING PATTERN - Cardiovascular Exam Cardiovascular Exam: REGULAR RHYTHM, RRR, +S1, +S2 - GI/Abdominal Exam GI & Abdominal Exam: Soft, Normal Bowel Sounds. absent: Tenderness - Extremities Exam Extremities Exam: Joint Swelling (bilateral lower extremity lymph edema ), Tenderness (bilateral lower extremity tenderness ) - Neurological Exam Neurological Exam: Alert, Awake, Oriented x3 - Psychiatric Exam Psychiatric exam: Normal Affect, Normal Mood - Skin Skin Exam: Dry, Intact, Normal Color, Warm Assessment and Plan - Assessment and Plan (Free Text) Plan: 1.) Leukocytosis secondary to Cellulitis bilateral lower extremity leg edema * WBC (08/10) 15.8; (08/09) 15.6; 08/08 15.8; (08/07) 15.7; (08/06) 15.1; (08/05) 12.8; ( 08/04) 16.1 * Aztreonam started 08/09 * Clindamycin started 08/09 * blood cultures - no growth after 5 days - 2mg Dilaudid PRN for severe pain - Calamine lotion - Aloe Vera 2.) ESRD - Dialysis today Wednesday, , Wednesday - Nephrology Consult: Dr. Hamilton --> help appreciated 3.) Pre-Diabetes - HA1c (01/14/17): 6.7 - Repeat HA1c (08/10): 6.9 - ACCUchecks - ISS - Diabetic Education 4.) Prophylaxis - Pepcid 20mg - Lovenox 30mg - Physical Therapy - Case Management: Patient refuses subacute rehab Case Discussed with Dr. Apolinar Catherine PGY-1 <Yuriy Jiang - Last Filed: 08/10/17 17:08> Objective - Vital Signs/Intake and Output Vital Signs (last 24 hours): Temp Pulse Resp BP Pulse Ox 98.2 F 77 18 116/67 99 08/10/17 10:30 08/10/17 13:45 08/10/17 10:30 08/10/17 13:45 08/10/17 13:45 Intake and Output: 08/10/17 08/10/17 06:59 18:59 Intake Total 950 300 Output Total 450 Balance 500 300 - Medications Medications: Current Medications Acetaminophen (Tylenol 325mg Tab) 650 mg PO Q6 PRN PRN Reason: Fever >100.4 F Calamine (Calamine Lotion) 1 ml TOP PRN PRN PRN Reason: Dry skin Last Admin: 08/04/17 13:28 Dose: 1 ml Enoxaparin Sodium (Lovenox) 30 mg SC DAILY [facility] Last Admin: 08/10/17 10:38 Dose: Not Given Epoetin Ventura (Procrit) 10,000 unit IV TTS [facility] Last Admin: 08/10/17 11:42 Dose: 10,000 unit Famotidine (Pepcid) 20 mg PO DAILY [facility] Last Admin: 08/10/17 10:38 Dose: Not Given Ferric Sodium Gluconate Complex (Ferrlecit) 125 mg IVPB TTS [facility] Stop: 08/19/17 10:01 Last Admin: 08/10/17 12:40 Dose: 125 mg Hydrocortisone (Anusol-Hc) 1 gm DC BID [facility] Last Admin: 08/10/17 10:30 Dose: Not Given Hydromorphone HCl (Dilaudid) 2 mg IVP Q4H PRN PRN Reason: Pain, severe (8-10) Last Admin: 08/10/17 14:52 Dose: 2 mg Aztreonam 1 gm/ Sodium (Chloride) 100 mls @ 200 mls/hr IVPB Q12H [facility] Last Admin: 08/10/17 10:30 Dose: Not Given Clindamycin Phosphate 600 mg/ (Sodium Chloride) 54 mls @ 100 mls/hr IVPB Q8H [facility] Last Admin: 08/10/17 10:00 Dose: Not Given Insulin Human Regular (Novolin R) 0 unit SC ACHS J[facility]E PRN Reason: Protocol Last Admin: 08/10/17 12:30 Dose: Not Given Nystatin (Nystatin Oral Susp) 5 ml PO QID [facility] Last Admin: 08/10/17 13:52 Dose: Not Given Ondansetron HCl (Zofran Inj) 4 mg IVP Q6 PRN PRN Reason: Nausea/Vomiting - Labs Labs: 08/10/17 10:49 08/10/17 10:49 Attending/Attestation - Attestation I have personally seen and examined this patient.: Yes I have fully participated in the care of the patient.: Yes I have reviewed all pertinent clinical information, including history, physical exam and plan: Yes Notes (Text): 08/10/17 17:07 Patient was seen and examined at bedside during hemodialysis Patient appears comfortable Still has pain in the right lower extremity We will monitor CBC Continue antibiotics. Patient is on clindamycin and Azactam Discussed the plan of care with the resident and agree with the assessment and plan documented.
[2017-08-10] MEDS: Aztreonam 1 GM in Sodium Chloride 0.9% 100 ML IVPB SCH ×2 (10:30→22:36)
[2017-08-10] MEDS: Hydrocortisone 2.5% Rectal Cream(30 gm) PR SCH ×2 (10:30→18:22)
[2017-08-10] MEDS: Nystatin 100,000 Units/ml Oral Susp 5 ml UD PO SCH ×4 (10:38→22:37)
[2017-08-10] MEDS: Enoxaparin 30 mg Syringe SC SCH (10:38)
[2017-08-10] MEDS: Epoetin Alfa 10,000 unit/ml Dialysis IV SCH ×2 (10:38→11:42)
--- NOTE | 2017-08-10 10:52 | CP.PCM.PN ---
Subjective - Date & Time of Evaluation Date of Evaluation: 08/10/17 Time of Evaluation: 10:50 - Subjective Subjective: seen on hd tolerating well denies any diarrhea Objective - Vital Signs/Intake and Output Vital Signs (last 24 hours): Temp Pulse Resp BP Pulse Ox 98.6 F 71 20 108/65 96 08/10/17 08:12 08/10/17 08:12 08/10/17 08:12 08/10/17 08:12 08/10/17 08:12 Intake and Output: 08/10/17 08/10/17 06:59 18:59 Intake Total 950 Output Total 450 Balance 500 - Medications Medications: Current Medications Acetaminophen (Tylenol 325mg Tab) 650 mg PO Q6 PRN PRN Reason: Fever >100.4 F Calamine (Calamine Lotion) 1 ml TOP PRN PRN PRN Reason: Dry skin Last Admin: 08/04/17 13:28 Dose: 1 ml Enoxaparin Sodium (Lovenox) 30 mg SC DAILY [facility] Last Admin: 08/10/17 10:38 Dose: Not Given Famotidine (Pepcid) 20 mg PO DAILY [facility] Last Admin: 08/10/17 10:38 Dose: Not Given Hydrocortisone (Anusol-Hc) 1 gm [place] BID [facility] Last Admin: 08/10/17 10:30 Dose: Not Given Hydromorphone HCl (Dilaudid) 2 mg IVP Q4H PRN PRN Reason: Pain, severe (8-10) Last Admin: 08/10/17 06:21 Dose: 2 mg Vancomycin HCl 1 gm/ Sodium (Chloride) 250 mls @ 166.7 mls/hr IVPB TTS [facility] Last Admin: 08/10/17 10:38 Dose: Not Given Aztreonam 1 gm/ Sodium (Chloride) 100 mls @ 200 mls/hr IVPB Q12H [facility] Last Admin: 08/10/17 10:30 Dose: Not Given Clindamycin Phosphate 600 mg/ (Sodium Chloride) 54 mls @ 100 mls/hr IVPB Q8H [facility] Last Admin: 08/10/17 10:00 Dose: Not Given Insulin Human Regular (Novolin R) 0 unit SC ACHS [facility] PRN Reason: Protocol Last Admin: 08/10/17 07:49 Dose: Not Given Nystatin (Nystatin Oral Susp) 5 ml PO QID [facility] Last Admin: 08/10/17 10:38 Dose: Not Given Ondansetron HCl (Zofran Inj) 4 mg IVP Q6 PRN PRN Reason: Nausea/Vomiting - Labs Labs: 08/09/17 07:11 08/09/17 07:11 - Constitutional Appears: No Acute Distress, Chronically Ill (obese) - Head Exam Head Exam: NORMAL INSPECTION - Eye Exam Eye Exam: Normal appearance - ENT Exam ENT Exam: Mucous Membranes Moist, Normal Exam - Neck Exam Neck Exam: Normal Inspection - Respiratory Exam Respiratory Exam: Decreased Breath Sounds, NORMAL BREATHING PATTERN - Cardiovascular Exam Cardiovascular Exam: REGULAR RHYTHM, RRR - GI/Abdominal Exam GI & Abdominal Exam: Distended, Soft, Hypoactive Bowel Sounds - Extremities Exam Extremities Exam: Pedal Edema (chronic stasis, calamine lotion applied) Assessment and Plan (1) Anemia Status: Acute (2) Cellulitis and abscess of left leg Status: Acute (3) ESRD (end stage renal disease) Status: Acute (4) Lymphedema in adult patient Status: Acute (5) Diabetes Status: Acute - Assessment and Plan (Free Text) Assessment: maintain hd tts procrit reordered
[2017-08-10 10:55] LABS: BASO # 0.1 K/uL (0.0-0.2); BASO % 0.4 % (0.0-2.0); EOS # 0.4 K/uL (0.0-0.7); EOS % 2.8 % (0.0-4.0); HEMATOCRIT 24.9 % (35.0-51.0); LYMPH # 0.8 K/uL (1.0-4.3); LYMPH % 5.3 % (20.0-40.0); MEAN CORPUSCULAR HEMOGLOBIN 24.1 pg (27.0-31.0); MEAN CORPUSCULAR HGB CONC 32.2 g/dL (33.0-37.0); MONO # 1.2 K/uL (0.0-0.8); MONO % 7.6 % (0.0-10.0); PLATELET COUNT 389 K/uL (130-400); RED CELL DISTRIBUTION WIDTH 17.4 % (11.5-14.5); WHITE BLOOD COUNT 15.8 K/uL (4.8-10.8)
[2017-08-10 11:14] LABS: POTASSIUM 4.4 mmol/L (3.6-5.2)
[2017-08-10 11:16] LABS: ALB/GLOB RATIO 0.8 (1.0-2.1); BILIRUBIN,TOTAL 0.5 mg/dL (0.2-1.3); CALCIUM 8.9 mg/dl (8.6-10.4); PHOSPHOROUS 6.2 mg/dL (2.5-4.5); TOTAL PROTEIN 7.9 g/dL (6.3-8.3)
[2017-08-10 11:17] LABS: MAGNESIUM 1.8 mg/dL (1.6-2.3)
[2017-08-10] MEDS: Ferric Sodium Gluconat Complex 62.5 mg/5 ml Vial IVPB SCH (12:40)
[2017-08-10 12:41] LABS: EOSINOPHIL 1 % (0-4); NEUTROPHIL 85 % (50-75); TOTAL CELLS COUNTED 100
--- NOTE | 2017-08-11 06:30 | CP.PCM.PN ---
<Alyce Catherine - Last Filed: 08/11/17 17:35> Subjective - Date & Time of Evaluation Date of Evaluation: 08/11/17 Time of Evaluation: 07:00 - Subjective Subjective: Medicine Progress Note: Patient was seen and examined at bedside in the AM. Patient states he still has radiating pain down his left thigh and bilateral lower extremity tenderness. Patient states he continues to have lower extremity swelling He denies chest pain, shortness of breath, nausea or vomiting. Patient states he is eating well and is ambulating side to side to the bathroom but continues to have pain in his lower extremities. Objective - Vital Signs/Intake and Output Vital Signs (last 24 hours): Temp Pulse Resp BP Pulse Ox 97.9 F 67 20 95/60 L 95 08/10/17 23:50 08/11/17 03:44 08/10/17 23:50 08/11/17 03:44 08/10/17 23:50 Intake and Output: 08/10/17 08/11/17 18:59 06:59 Intake Total 300 200 Balance 300 200 - Medications Medications: Current Medications Acetaminophen (Tylenol 325mg Tab) 650 mg PO Q6 PRN PRN Reason: Fever >100.4 F Calamine (Calamine Lotion) 1 ml TOP PRN PRN PRN Reason: Dry skin Last Admin: 08/04/17 13:28 Dose: 1 ml Enoxaparin Sodium (Lovenox) 30 mg SC DAILY [facility] Last Admin: 08/10/17 10:38 Dose: Not Given Epoetin Ventura (Procrit) 10,000 unit IV TTS [facility] Last Admin: 08/10/17 11:42 Dose: 10,000 unit Famotidine (Pepcid) 20 mg PO DAILY [facility] Last Admin: 08/10/17 10:38 Dose: Not Given Ferric Sodium Gluconate Complex (Ferrlecit) 125 mg IVPB TTS [facility] Stop: 08/19/17 10:01 Last Admin: 08/10/17 12:40 Dose: 125 mg Hydrocortisone (Anusol-Hc) 1 gm SC BID [facility] Last Admin: 08/10/17 18:22 Dose: Not Given Hydromorphone HCl (Dilaudid) 2 mg IVP Q4H PRN PRN Reason: Pain, severe (8-10) Last Admin: 08/11/17 03:48 Dose: 2 mg Aztreonam 1 gm/ Sodium (Chloride) 100 mls @ 200 mls/hr IVPB Q12H [facility] Last Admin: 08/10/17 22:36 Dose: 200 mls/hr Clindamycin Phosphate 600 mg/ (Sodium Chloride) 54 mls @ 100 mls/hr IVPB Q8H [facility] Last Admin: 08/11/17 00:42 Dose: 100 mls/hr Insulin Human Regular (Novolin R) 0 unit SC ACHS [facility] PRN Reason: Protocol Last Admin: 08/10/17 22:09 Dose: Not Given Nystatin (Nystatin Oral Susp) 5 ml PO QID [facility] Last Admin: 08/10/17 22:37 Dose: 5 ml Ondansetron HCl (Zofran Inj) 4 mg IVP Q6 PRN PRN Reason: Nausea/Vomiting - Labs Labs: 08/10/17 10:49 08/10/17 10:49 - Constitutional Appears: No Acute Distress, Other (morbidly obese) - Head Exam Head Exam: ATRAUMATIC, NORMAL INSPECTION, NORMOCEPHALIC - Eye Exam Eye Exam: EOMI, Normal appearance, PERRL Pupil Exam: NORMAL ACCOMODATION - ENT Exam ENT Exam: Mucous Membranes Moist - Respiratory Exam Respiratory Exam: Clear to Ausculation Bilateral, NORMAL BREATHING PATTERN - Cardiovascular Exam Cardiovascular Exam: REGULAR RHYTHM, RRR, +S1, +S2 - GI/Abdominal Exam GI & Abdominal Exam: Soft, Normal Bowel Sounds. absent: Tenderness - Extremities Exam Extremities Exam: Joint Swelling (bilateral lower extremity lymph edema ), Tenderness (bilateral lower extremity tenderness ) - Neurological Exam Neurological Exam: Alert, Awake, Oriented x3 - Psychiatric Exam Psychiatric exam: Normal Affect, Normal Mood - Skin Skin Exam: Dry, Intact, Normal Color, Warm Assessment and Plan - Assessment and Plan (Free Text) Plan: 1.) Leukocytosis secondary to Cellulitis bilateral lower extremity leg edema * WBC (08/11) 14.7; (08/10) 15.8; (08/09) 15.6; 08/08 15.8; (08/07) 15.7; (08/06) 15.1; (08/05) 12.8; (08/04) 16.1 * Aztreonam started 08/09 * Clindamycin started 08/09 * blood cultures - no growth after 5 days - 2mg Dilaudid PRN for severe pain - Calamine lotion - Aloe Vera 2.) ESRD - Dialysis today Wednesday, , Wednesday - Nephrology Consult: Dr. Hamilton --> help appreciated 3.) Pre-Diabetes - HA1c (01/14/17): 6.7 - Repeat HA1c (08/10): 6.9 - ACCUchecks - ISS - Diabetic Education - Low Carbohydrate Diet - Possibly start Januvia 25mg PO daily 4.) Prophylaxis - Pepcid 20mg - Lovenox 30mg - Physical Therapy - Case Management: Patient refuses subacute rehab Case Discussed with Dr. Apolinar Catherine PGY-1 <Yuriy Jiang - Last Filed: 08/12/17 13:36> Objective - Vital Signs/Intake and Output Vital Signs (last 24 hours): Temp Pulse Resp BP Pulse Ox 98 F 67 20 111/71 97 08/12/17 09:50 08/12/17 09:50 08/12/17 09:50 08/12/17 12:50 08/12/17 09:50 Intake and Output: 08/12/17 08/12/17 06:59 18:59 Intake Total 450 Output Total 600 Balance -150 - Medications Medications: Current Medications Acetaminophen (Tylenol 325mg Tab) 650 mg PO Q6 PRN PRN Reason: Fever >100.4 F Calamine (Calamine Lotion) 1 ml TOP PRN PRN PRN Reason: Dry skin Last Admin: 08/04/17 13:28 Dose: 1 ml Enoxaparin Sodium (Lovenox) 30 mg SC DAILY [facility] Last Admin: 08/11/17 09:52 Dose: 30 mg Epoetin Ventura (Procrit) 10,000 unit IV TTS [facility] Last Admin: 08/12/17 10:35 Dose: 10,000 unit Famotidine (Pepcid) 20 mg PO DAILY [facility] Last Admin: 08/11/17 10:08 Dose: 20 mg Ferric Sodium Gluconate Complex (Ferrlecit) 125 mg IVPB TTS [facility] Stop: 08/19/17 10:01 Last Admin: 08/12/17 10:37 Dose: 125 mg Hydrocortisone (Anusol-Hc) 1 gm SC BID [facility] Last Admin: 08/11/17 18:00 Dose: Not Given Hydromorphone HCl (Dilaudid) 2 mg IVP Q4H PRN PRN Reason: Pain, severe (8-10) Last Admin: 08/12/17 12:02 Dose: 2 mg Aztreonam 1 gm/ Sodium (Chloride) 100 mls @ 200 mls/hr IVPB Q12H [facility] Last Admin: 08/11/17 21:42 Dose: 200 mls/hr Clindamycin Phosphate 600 mg/ (Sodium Chloride) 54 mls @ 100 mls/hr IVPB Q8H [facility] Last Admin: 08/12/17 01:02 Dose: 100 mls/hr Insulin Human Regular (Novolin R) 0 unit SC ACHS [facility] PRN Reason: Protocol Last Admin: 08/12/17 08:32 Dose: Not Given Nystatin (Nystatin Oral Susp) 5 ml PO QID [facility] Last Admin: 08/11/17 21:42 Dose: 5 ml Ondansetron HCl (Zofran Inj) 4 mg IVP Q6 PRN PRN Reason: Nausea/Vomiting Sitagliptin Phosphate (Januvia) 25 mg PO DAILY [facility] - Labs Labs: 08/12/17 07:28 08/12/17 07:28 Attending/Attestation - Attestation I have personally seen and examined this patient.: Yes I have fully participated in the care of the patient.: Yes I have reviewed all pertinent clinical information, including history, physical exam and plan: Yes Notes (Text): 08/12/17 13:35 Patient was seen and examined at bedside with the resident We will continue IV antibiotics for cellulitis Patient has hemoglobin A1c of 6.9. We will start the patient on diabetic diet and start the medication for diabetes mellitus I had a detailed discussion with the patient about the diet and exercise and try to reduce weight I discussed the plan of care with the resident and agree with the assessment and plan documented.
[2017-08-11 07:47] LABS: BASO # 0.1 K/uL (0.0-0.2); BASO % 0.5 % (0.0-2.0); EOS # 0.4 K/uL (0.0-0.7); EOS % 2.4 % (0.0-4.0); HEMATOCRIT 25.8 % (35.0-51.0); LYMPH # 0.8 K/uL (1.0-4.3); LYMPH % 5.7 % (20.0-40.0); MEAN CELL VOLUME 75.5 fL (80.0-94.0); MEAN CORPUSCULAR HEMOGLOBIN 23.9 pg (27.0-31.0); MEAN CORPUSCULAR HGB CONC 31.7 g/dL (33.0-37.0); MEAN PLATELET VOLUME 7.3 fL (7.2-11.7); MONO # 1.2 K/uL (0.0-0.8); MONO % 8.3 % (0.0-10.0); PLATELET COUNT 408 K/uL (130-400); RED CELL DISTRIBUTION WIDTH 17.3 % (11.5-14.5); WHITE BLOOD COUNT 14.7 K/uL (4.8-10.8)
[2017-08-11 08:07] LABS: POTASSIUM 4.7 mmol/L (3.6-5.2)
[2017-08-11 08:09] LABS: ALB/GLOB RATIO 0.7 (1.0-2.1); BILIRUBIN,TOTAL 0.5 mg/dL (0.2-1.3)
[2017-08-11 08:10] LABS: MAGNESIUM 1.8 mg/dL (1.6-2.3); PHOSPHOROUS 6.3 mg/dL (2.5-4.5)
[2017-08-11] MEDS: (Novolin R) Insulin Human Regular 100 units/ml vial SC SCH ×3 (08:30→17:20)
[2017-08-11 09:07] LABS: EOSINOPHIL 4 % (0-4); NEUTROPHIL 84 % (50-75); TOTAL CELLS COUNTED 100
[2017-08-11] MEDS: Aztreonam 1 GM in Sodium Chloride 0.9% 100 ML IVPB SCH ×2 (09:37→21:42)
[2017-08-11] MEDS: Enoxaparin 30 mg Syringe SC SCH (09:52)
[2017-08-11] MEDS: Nystatin 100,000 Units/ml Oral Susp 5 ml UD PO SCH ×4 (09:52→21:42)
[2017-08-11] MEDS: Hydrocortisone 2.5% Rectal Cream(30 gm) PR SCH ×2 (10:09→18:00)
--- NOTE | 2017-08-11 15:52 | CP.PCM.PN ---
Subjective - Date & Time of Evaluation Date of Evaluation: 08/11/17 Time of Evaluation: 15:00 - Subjective Subjective: getting wound care and AB no chest pain no sob no changes in urination no rash no headache no fever appetite good no abdominal pain muscle aches - tolerated HD yesterday without events Objective - Vital Signs/Intake and Output Vital Signs (last 24 hours): Temp Pulse Resp BP Pulse Ox 98.1 F 68 20 96/60 L 97 08/11/17 08:01 08/11/17 08:01 08/11/17 08:01 08/11/17 08:01 08/11/17 08:01 Intake and Output: 08/11/17 08/11/17 06:59 18:59 Intake Total 200 Balance 200 - Medications Medications: Current Medications Acetaminophen (Tylenol 325mg Tab) 650 mg PO Q6 PRN PRN Reason: Fever >100.4 F Calamine (Calamine Lotion) 1 ml TOP PRN PRN PRN Reason: Dry skin Last Admin: 08/04/17 13:28 Dose: 1 ml Enoxaparin Sodium (Lovenox) 30 mg SC DAILY [facility] Last Admin: 08/11/17 09:52 Dose: 30 mg Epoetin Ventura (Procrit) 10,000 unit IV TTS [facility] Last Admin: 08/10/17 11:42 Dose: 10,000 unit Famotidine (Pepcid) 20 mg PO DAILY [facility] Last Admin: 08/11/17 10:08 Dose: 20 mg Ferric Sodium Gluconate Complex (Ferrlecit) 125 mg IVPB TTS [facility] Stop: 08/19/17 10:01 Last Admin: 08/10/17 12:40 Dose: 125 mg Hydrocortisone (Anusol-Hc) 1 gm [place] BID [facility] Last Admin: 08/11/17 10:09 Dose: Not Given Hydromorphone HCl (Dilaudid) 2 mg IVP Q4H PRN PRN Reason: Pain, severe (8-10) Last Admin: 08/11/17 13:35 Dose: 2 mg Aztreonam 1 gm/ Sodium (Chloride) 100 mls @ 200 mls/hr IVPB Q12H [facility] Last Admin: 08/11/17 09:37 Dose: 200 mls/hr Clindamycin Phosphate 600 mg/ (Sodium Chloride) 54 mls @ 100 mls/hr IVPB Q8H [facility] Last Admin: 08/11/17 10:56 Dose: 100 mls/hr Insulin Human Regular (Novolin R) 0 unit SC ACHS [facility] PRN Reason: Protocol Last Admin: 08/11/17 11:31 Dose: Not Given Nystatin (Nystatin Oral Susp) 5 ml PO QID [facility] Last Admin: 08/11/17 13:35 Dose: 5 ml Ondansetron HCl (Zofran Inj) 4 mg IVP Q6 PRN PRN Reason: Nausea/Vomiting Sitagliptin Phosphate (Januvia) 25 mg PO DAILY [facility] Last Admin: 08/11/17 13:28 Dose: Not Given - Labs Labs: 08/11/17 07:40 08/11/17 07:40 - Constitutional Appears: Non-toxic, Chronically Ill - Eye Exam Eye Exam: EOMI - ENT Exam ENT Exam: Mucous Membranes Moist - Neck Exam Neck Exam: Full ROM. absent: Lymphadenopathy - Respiratory Exam Respiratory Exam: NORMAL BREATHING PATTERN. absent: Accessory Muscle Use - GI/Abdominal Exam GI & Abdominal Exam: Soft. absent: Tenderness - Extremities Exam Extremities Exam: Pedal Edema Additional comments: chronic rash Assessment and Plan - Assessment and Plan (Free Text) Assessment: esrd chronic cellulitis obesity HD in am continue care of cellulitis
[2017-08-11] MEDS ORDERED: POLYETHYLENE GLYCOL 3350 17 GM/Dose PACKET PO ONE (18:52)
[2017-08-12 07:39] LABS: BASO # 0.1 K/uL (0.0-0.2); BASO % 0.5 % (0.0-2.0); EOS # 0.3 K/uL (0.0-0.7); EOS % 2.7 % (0.0-4.0); HEMATOCRIT 25.5 % (35.0-51.0); LYMPH # 0.8 K/uL (1.0-4.3); LYMPH % 6.7 % (20.0-40.0); MEAN CELL VOLUME 75.9 fL (80.0-94.0); MEAN CORPUSCULAR HEMOGLOBIN 24.6 pg (27.0-31.0); MEAN CORPUSCULAR HGB CONC 32.4 g/dL (33.0-37.0); MEAN PLATELET VOLUME 7.4 fL (7.2-11.7); MONO # 1.3 K/uL (0.0-0.8); MONO % 11.1 % (0.0-10.0); PLATELET COUNT 413 K/uL (130-400); RED CELL DISTRIBUTION WIDTH 17.5 % (11.5-14.5); WHITE BLOOD COUNT 11.7 K/uL (4.8-10.8)
[2017-08-12 07:50] LABS: POTASSIUM 4.3 mmol/L (3.6-5.2)
[2017-08-12 07:52] LABS: ALB/GLOB RATIO 0.7 (1.0-2.1); BILIRUBIN,TOTAL 0.5 mg/dL (0.2-1.3); TOTAL PROTEIN 8.1 g/dL (6.3-8.3)
[2017-08-12 07:53] LABS: MAGNESIUM 1.8 mg/dL (1.6-2.3); PHOSPHOROUS 6.4 mg/dL (2.5-4.5)
[2017-08-12] MEDS: (Novolin R) Insulin Human Regular 100 units/ml vial SC SCH ×2 (08:32→15:02)
[2017-08-12 09:11] LABS: EOSINOPHIL 3 % (0-4); NEUTROPHIL 79 % (50-75); TOTAL CELLS COUNTED 100
[2017-08-12] MEDS: Epoetin Alfa 10,000 unit/ml Dialysis IV SCH (10:35)
[2017-08-12] MEDS: Ferric Sodium Gluconat Complex 62.5 mg/5 ml Vial IVPB SCH (10:37)
--- NOTE | 2017-08-12 11:32 | CP.PCM.DIS ---
Provider - Provider Date of Admission: 08/04/17 08:51 Attending physician: Yuriy Jiang MD Time Spent in preparation of Discharge (in minutes): 40 Hospital Course - Lab Results Lab Results: Most Recent Lab Values WBC 11.7 K/uL (4.8-10.8) H 08/12/17 07:28 RBC 3.36 Mil/uL (4.40-5.90) L 08/12/17 07:28 Hgb 8.3 g/dL (12.0-18.0) L 08/12/17 07:28 Hct 25.5 % (35.0-51.0) L 08/12/17 07:28 MCV 75.9 fL (80.0-94.0) L 08/12/17 07:28 MCH 24.6 pg (27.0-31.0) L 08/12/17 07:28 MCHC 32.4 g/dL (33.0-37.0) L 08/12/17 07:28 RDW 17.5 % (11.5-14.5) H 08/12/17 07:28 Plt Count 413 K/uL (130-400) H 08/12/17 07:28 MPV 7.4 fL (7.2-11.7) 08/12/17 07:28 Neut % (Auto) 79.0 % (50.0-75.0) H 08/12/17 07:28 Lymph % (Auto) 6.7 % (20.0-40.0) L 08/12/17 07:28 [place] % (Auto) 11.1 % (0.0-10.0) H 08/12/17 07:28 Eos % (Auto) 2.7 % (0.0-4.0) 08/12/17 07:28 Baso % (Auto) 0.5 % (0.0-2.0) 08/12/17 07:28 Neut # 9.2 K/uL (1.8-7.0) H 08/12/17 07:28 Lymph # 0.8 K/uL (1.0-4.3) L 08/12/17 07:28 [place] # 1.3 K/uL (0.0-0.8) H 08/12/17 07:28 Eos # 0.3 K/uL (0.0-0.7) 08/12/17 07:28 Baso # 0.1 K/uL (0.0-0.2) 08/12/17 07:28 Neutrophils % (Manual) 79 % (50-75) H 08/12/17 07:28 Band Neutrophils % 1 % (0-2) 08/12/17 07:28 Lymphocytes % (Manual) 7 % (20-40) L 08/12/17 07:28 Monocytes % (Manual) 10 % (0-10) 08/12/17 07:28 Eosinophils % (Manual) 3 % (0-4) 08/12/17 07:28 Basophils % (Manual) 1 % (0-2) 08/06/17 08:01 Metamyelocytes % 1 % (0-0) H 08/06/17 08:01 Myelocytes % 1 % (0-0) H 08/09/17 07:11 Toxic Granulation Present 08/08/17 07:16 Platelet Estimate Normal (NORMAL) 08/12/17 07:28 Large Platelets Present 08/08/17 07:16 Giant Platelets Present 08/08/17 07:16 Polychromasia Slight 08/08/17 07:16 Hypochromasia (manual) Slight 08/12/17 07:28 Poikilocytosis (manual Slight 08/12/17 07:28 Anisocytosis (manual) Slight 08/12/17 07:28 Microcytosis (manual) Slight 08/11/17 07:40 Macrocytosis (manual) Slight 08/11/17 07:40 Target Cells Slight 08/12/17 07:28 Tear Drop Cells Slight 08/10/17 10:49 Ovalocytes Slight 08/12/17 07:28 Sodium 142 mmol/L (132-148) 08/12/17 07:28 Potassium 4.3 mmol/L (3.6-5.2) 08/12/17 07:28 Chloride 99 mmol/L (98-107) 08/12/17 07:28 Carbon Dioxide 29 mmol/L (22-30) 08/12/17 07:28 Anion Gap 18 (10-20) 08/12/17 07:28 BUN 56 mg/dL (9-20) H 08/12/17 07:28 Creatinine 3.1 MG/DL (0.8-1.5) H 08/12/17 07:28 Est GFR ( Amer) 26 08/12/17 07:28 Est GFR (Non-Af Amer) 22 08/12/17 07:28 POC Glucose (mg/dL) 126 mg/dL (65-110) H 08/12/17 06:18 Random Glucose 92 mg/dL (75-110) 08/12/17 07:28 Hemoglobin A1c 6.9 % (4.2-6.5) H 08/10/17 10:49 Calcium 9.0 mg/dl (8.6-10.4) 08/12/17 07:28 Phosphorus 6.4 mg/dL (2.5-4.5) H 08/12/17 07:28 Magnesium 1.8 mg/dL (1.6-2.3) 08/12/17 07:28 % Saturation 8 (20-55) L 08/07/17 14:50 Ferritin 604.0 ng/mL 08/07/17 14:50 Total Bilirubin 0.5 mg/dL (0.2-1.3) 08/12/17 07:28 AST 22 U/L (17-59) 08/12/17 07:28 ALT 35 U/L (21-72) 08/12/17 07:28 Alkaline Phosphatase 226 U/L (38-126) H 08/12/17 07:28 Total Protein 8.1 g/dL (6.3-8.3) 08/12/17 07:28 Albumin 3.4 g/dL (3.5-5.0) L 08/12/17 07:28 Globulin 4.7 gm/dL (2.2-3.9) H 08/12/17 07:28 Albumin/Globulin Ratio 0.7 (1.0-2.1) L 08/12/17 07:28 - Hospital Course Hospital Course: PGY1 Note for Dr. Ac HPI: 51 year old male with a PMH of obesity, ESRD on HD, chronic lymphedema, asthma/bronchitis who is presenting with a boil on his right posterior upper thigh. He is complaining of pain that began a few days ago. The pain and boil began because he was wearing sweatpants and they rubbed on the skin to abrasively. The pain is a sharp stabbing pain that is localized to the area. Washing the area helps. Taking tramadol at home for the pain, provides moderate relief. Patient explains that he is also experiencing pain at any point his body weight rests. He also states there is an area of skin that is weeping in his right popliteal fossa. No noted discharge at the area. He states he has been experiencing a fever that began Wednesday night and moderate SOB. Denies chills, CP, d,c, dizziness, weakness. PMD: [place] Code: Full code PMH: -ESRD on HD TTS -chronic lymphedema -asthma, bronchitis -elephantiasis PSH: -AVF left upper extremity -I&D right leg pressure ulcer Family Hx: -mother: from ovarian cancer -uncle: DM Social -Smokin-10 cigarettes off and on daily since 1979 -alcohol: drinks socially, no hard liquor -drugs: denies -Independent in ADLS, uses a cane to walk, lives alone Allergies: Piperacillin 08/04/17: Patient reported missing dialysis the day prior. Patient admitted for severity of symptoms. Patient given Cefepime 1gm IV. Dr. Mota consulted for management of patients end stage renal disease. 08/05/17: Patient went to hemodialysis but patient did not allow for full dialysis. Patient started on 0.5mg Dilaudid Q4 PRN and Vancomycin 1gm IV during dialysis Wednesday, , Wednesday. 08/06/17: Patients Dilaudid increased to 1mg IV Q4 PRN due to lower extremity pain bilaterally secondary to cellulitis. 08/07/17: Patient went for hemodialysis 08/09/16: Patients Dilaudid increased to 2mg Q4 PRN due to lower extremity pain bilaterally secondary to cellulitis. Patient started on new antibiotics because WBC continued to be elevated. Clindamycin 600mg IV Q8 and Aztreonam 1gm in Sodium Chloride Q12H. 08/10/17: Patient went to hemodialysis 08/11/17: Patient educated on diabetes because Hemoglobin A1C was found to be 6.9 and started on 25mg Januvia PO daily. 08/12/17:Patient went to hemodialysis and will be discharged home on Clindamycin 300mg Q6 4 days, Januvia 25mg PO daily, and with instructions do check blood glucose daily with glucometer Patient stable for discharge per Dr. Jiang. Patient to start new medications: 300mg Clindamycin every 6 hours for 4 days 25mg Januvia daily Patient instructed to check blood sugars at home prescription for Glucometer, Lancets, and testing stripts have been provided. Patient to follow up with primary physician in 1-2 weeks. Patient to return to the emergency room if symptoms worsen or return. This is a brief summary of events. For a complete course, refer to the medical record. Discharge Exam - Head Exam Head Exam: ATRAUMATIC, NORMAL INSPECTION, NORMOCEPHALIC - Eye Exam Eye Exam: EOMI, Normal appearance, PERRL Pupil Exam: NORMAL ACCOMODATION - ENT Exam ENT Exam: Mucous Membranes Moist - Respiratory Exam Respiratory Exam: Clear to PA & Lateral, NORMAL BREATHING PATTERN - Cardiovascular Exam Cardiovascular Exam: REGULAR RHYTHM, RRR, +S1, +S2 - GI/Abdominal Exam GI & Abdominal Exam: Normal Bowel Sounds, Soft. absent: Tenderness Additional comments: Morbidly obese - Extremities Exam Extremities exam: joint swelling (bilateral lower extremity lymph edema ) - Neurological Exam Neurological exam: Alert, Oriented x3 - Psychiatric Exam Psychiatric exam: Normal Affect, Normal Mood - Skin Skin Exam: Normal Color, Warm Discharge Plan - Discharge Medications Prescriptions: Clindamycin [Cleocin] 300 mg PO Q6H #16 vial SITagliptin [Januvia] 25 mg PO DAILY 30 Days - Follow Up Plan Condition: STABLE Disposition: HOME/ ROUTINE Instructions: Cellulitis (DC), Cellulitis (GEN), Dialysis Diet (DC), End Stage Kidney Disease (DC) Referrals: Ivet Alegre MD [Staff Provider] -
--- NOTE | 2017-08-12 11:33 | CP.PCM.PN ---
Subjective - Date & Time of Evaluation Date of Evaluation: 08/12/17 Time of Evaluation: 11:32 - Subjective Subjective: seen at dialysis LE wounds better afebrile and feels much better Objective - Vital Signs/Intake and Output Vital Signs (last 24 hours): Temp Pulse Resp BP Pulse Ox 98 F 67 20 118/66 97 08/12/17 09:50 08/12/17 09:50 08/12/17 09:50 08/12/17 10:20 08/12/17 09:50 Intake and Output: 08/12/17 08/12/17 06:59 18:59 Intake Total 450 Output Total 600 Balance -150 - Medications Medications: Current Medications Acetaminophen (Tylenol 325mg Tab) 650 mg PO Q6 PRN PRN Reason: Fever >100.4 F Calamine (Calamine Lotion) 1 ml TOP PRN PRN PRN Reason: Dry skin Last Admin: 08/04/17 13:28 Dose: 1 ml Enoxaparin Sodium (Lovenox) 30 mg SC DAILY [facility] Last Admin: 08/11/17 09:52 Dose: 30 mg Epoetin [place] (Procrit) 10,000 unit IV TTS [facility] Last Admin: 08/12/17 10:35 Dose: 10,000 unit Famotidine (Pepcid) 20 mg PO DAILY [facility] Last Admin: 08/11/17 10:08 Dose: 20 mg Ferric Sodium Gluconate Complex (Ferrlecit) 125 mg IVPB TTS [facility] Stop: 08/19/17 10:01 Last Admin: 08/12/17 10:37 Dose: 125 mg Hydrocortisone (Anusol-Hc) 1 gm IL BID [facility] Last Admin: 08/11/17 18:00 Dose: Not Given Hydromorphone HCl (Dilaudid) 2 mg IVP Q4H PRN PRN Reason: Pain, severe (8-10) Last Admin: 08/12/17 07:34 Dose: 2 mg Aztreonam 1 gm/ Sodium (Chloride) 100 mls @ 200 mls/hr IVPB Q12H [facility] Last Admin: 08/11/17 21:42 Dose: 200 mls/hr Clindamycin Phosphate 600 mg/ (Sodium Chloride) 54 mls @ 100 mls/hr IVPB Q8H [facility] Last Admin: 08/12/17 01:02 Dose: 100 mls/hr Insulin Human Regular (Novolin R) 0 unit SC ACHS [facility] PRN Reason: Protocol Last Admin: 08/12/17 08:32 Dose: Not Given Nystatin (Nystatin Oral Susp) 5 ml PO QID [facility] Last Admin: 08/11/17 21:42 Dose: 5 ml Ondansetron HCl (Zofran Inj) 4 mg IVP Q6 PRN PRN Reason: Nausea/Vomiting Sitagliptin Phosphate (Januvia) 25 mg PO DAILY [facility] - Labs Labs: 08/12/17 07:28 08/12/17 07:28 - Constitutional Appears: No Acute Distress, Chronically Ill - Head Exam Head Exam: ATRAUMATIC, NORMAL INSPECTION - Eye Exam Eye Exam: EOMI, Normal appearance - Neck Exam Neck Exam: Normal Inspection. absent: Tenderness - Respiratory Exam Respiratory Exam: Clear to Ausculation Bilateral, NORMAL BREATHING PATTERN - Cardiovascular Exam Cardiovascular Exam: REGULAR RHYTHM, +S1 - GI/Abdominal Exam GI & Abdominal Exam: Soft. absent: Tenderness - Extremities Exam Extremities Exam: Pedal Edema, Tenderness - Neurological Exam Neurological Exam: Awake, CN II-XII Intact - Skin Skin Exam: Dry, Warm Assessment and Plan (1) Cellulitis and abscess of left leg Status: Acute (2) Lymphedema in adult patient Status: Acute (3) ESRD on hemodialysis Status: Chronic - Assessment and Plan (Free Text) Plan: UF 3500ml with HD likely discharge today as per medical service
[2017-08-12 13:16] VITALS: O2SAT 97
[2017-08-12] MEDS: Hydrocortisone 2.5% Rectal Cream(30 gm) PR SCH (15:02)
[2017-08-12] MEDS: Enoxaparin 30 mg Syringe SC SCH (15:02)
[2017-08-12] MEDS: Aztreonam 1 GM in Sodium Chloride 0.9% 100 ML IVPB SCH (15:02)
[2017-08-12] MEDS: Nystatin 100,000 Units/ml Oral Susp 5 ml UD PO SCH (15:03)
[2017-08-12 16:14] VITALS: BP 106/62; PULSE 77; RESP 20; TEMP 98.3
== END 2017-08-12 18:25 | disposition home or self-care (01) | DRG 592 ==
LOC: C.ER 02:20 → C.9E 04:36 → INTOOBSV 04:36 → C.6T 05:59 → OBSVTOIN 08:51
PROVIDERS: ADMIT Internal Medicine; ATTEND Internal Medicine
PROC: 5A1D60Z (ICD-10-PCS; principal; 2017-08-05)
DX: L89.899 Pressure ulcer of other site, unspecified stage (principal); N18.6 End stage renal disease; E11.22 Type 2 diabetes mellitus with diabetic chronic kidney disease; N25.81 Secondary hyperparathyroidism of renal origin; I12.0 Hypertensive chronic kidney disease with stage 5 chronic kidney disease or end stage renal disease; L03.116 Cellulitis of left lower limb; L02.416 Cutaneous abscess of left lower limb; F17.210 Nicotine dependence, cigarettes, uncomplicated; E66.01 Morbid (severe) obesity due to excess calories; L85.3 Xerosis cutis; R68.2 Dry mouth, unspecified; I89.0 Lymphedema, not elsewhere classified; D64.9 Anemia, unspecified; E11.622 Type 2 diabetes mellitus with other skin ulcer; E11.65 Type 2 diabetes mellitus with hyperglycemia; J44.9 Chronic obstructive pulmonary disease, unspecified; K21.9 Gastro-esophageal reflux disease without esophagitis; L02.92 Furuncle, unspecified; Z68.43 Body mass index [BMI] 50.0-59.9, adult; Z99.2 Dependence on renal dialysis; Z91.15 Patient's noncompliance with renal dialysis; Z79.4 Long term (current) use of insulin; Z79.84 Long term (current) use of oral hypoglycemic drugs; Z88.0 Allergy status to penicillin

== ENCOUNTER 2017-09-03 14:28 | Inpatient (IN) | payer MEDICARE ==
[2017-09-03 14:39] VITALS: BMI 55.7
[2017-09-03] MEDS ORDERED: Sodium Chloride 0.9% 1,000 ML IV STA (16:51)
[2017-09-03] MEDS ORDERED: Vancomycin 1 GM 1 GM/250 ML BAG IV STA (16:53)
[2017-09-03] MEDS ORDERED: Sodium Chloride 0.9% 1,000 ML ONE (17:32)
[2017-09-03 17:39] LABS: BASO # 0.1 K/uL (0.0-0.2); BASO % 0.3 % (0.0-2.0); EOS # 0.2 K/uL (0.0-0.7); MEAN CELL VOLUME 73.7 fL (80.0-94.0); MEAN CORPUSCULAR HEMOGLOBIN 23.5 pg (27.0-31.0); MEAN CORPUSCULAR HGB CONC 31.9 g/dL (33.0-37.0); MEAN PLATELET VOLUME 8.2 fL (7.2-11.7); MONO # 1.2 K/uL (0.0-0.8); MONO % 5.1 % (0.0-10.0); NRBC % 0.2 % (0.0-2.0); PLATELET COUNT 201 K/uL (130-400); RED CELL DISTRIBUTION WIDTH 18.4 % (11.5-14.5); WHITE BLOOD COUNT 24.4 K/uL (4.8-10.8)
[2017-09-03] MEDS ORDERED: Clindamycin 600mg/50ml NS 600 MG/50 ML BAG IVPB ONE ×2 (18:00→20:24)
[2017-09-03 18:02] LABS: ALB/GLOB RATIO 0.7 (1.0-2.1); BILIRUBIN,TOTAL 1.1 mg/dL (0.2-1.3); TOTAL PROTEIN 9.2 g/dL (6.3-8.3)
[2017-09-03 18:03] LABS: CALCIUM 9.1 mg/dl (8.6-10.4); POTASSIUM 4.8 mmol/L (3.6-5.2)
[2017-09-03] MEDS ORDERED: Vancomycin 1 GM 1 GM/250 ML BAG IVPB ONE (18:37)
--- NOTE | 2017-09-03 18:39 | C.PDOC ---
History Of Present Illness 51 y/o male, with PMHx of diabetes, HTN, peripheral edema, ESRD, presents to ED for evaluation of pain and swelling to bilateral lower extremities (R>L). Patient also reports associated subjective fever, and chills since last night. Otherwise, denies change in sensation, numbness, weakness, chest pain, shortness of breath, or any other associated symptoms at this time. Time Seen by Provider: 09/03/17 15:14 Chief Complaint (Nursing): Abnormal Skin Integrity History Per: Patient History/Exam Limitations: no limitations Onset/Duration Of Symptoms: Days Current Symptoms Are (Timing): Still Present Location Of Injury: Right: Leg, Left: Leg Quality Of Symptoms: Painful, Swollen Recent travel outside of the [place]: No Additional History Per: Patient Past Medical History Reviewed: Historical Data, Nursing Documentation, Vital Signs Vital Signs: Last Vital Signs Temp 98.7 F 09/03/17 14:39 Pulse 82 09/03/17 17:37 Resp 18 09/03/17 17:37 BP 112/49 L 09/03/17 17:37 Pulse Ox 96 09/03/17 18:46 - Medical History PMH: Anemia, Bronchitis, COPD, Diabetes, HTN, Peripheral Edema, End Stage Renal Disease, Chronic Kidney Disease, Chronic Pain - [facility] Procedures DIALYSIS ARTERIOVENOSTOM (05/07/14) DILATION OF LEFT BRACHIAL VEIN, PERCUTANEOUS APPROACH (08/04/16) DRESSING OF WOUND NEC (05/29/14) EXTIRPATION OF MATTER FROM L BRACH ART, PERC APPROACH (08/04/16) EXTIRPATION OF MATTER FROM LEFT BRACHIAL VEIN, PERC APPROACH (08/04/16) HEMODIALYSIS (05/29/14) OTHER FASCIECTOMY (05/29/14) PACKED CELL TRANSFUSION (05/29/14) PERCUTAN NEEDLE BIOPSY OF KIDNEY (01/30/14) PERFORMANCE OF URINARY FILTRATION, MULTIPLE (08/04/17) VENOUS CATHETERIZATION FOR RENAL DIALYSIS (01/18/14) VENOUS CATHETERIZATION NEC (09/22/13) Family History: States: Unknown Family Hx - Social History Hx Tobacco Use: No Hx Alcohol Use: No Hx Substance Use: No - Immunization History Hx Tetanus Toxoid Vaccination: Yes (w/in 5 years) Hx Influenza Vaccination: No Hx Pneumococcal Vaccination: No Review Of Systems Except As Marked, All Systems Reviewed And Found Negative. Constitutional: Negative for: Fever, Chills Cardiovascular: Negative for: Chest Pain, Palpitations Respiratory: Negative for: Cough, Shortness of Breath Musculoskeletal: Positive for: Leg Pain (bilateral leg pain and swelling) Neurological: Negative for: Weakness, Numbness, Headache Physical Exam - Physical Exam Appears: Non-toxic, No Acute Distress Skin: Warm (lower extremities R>L), Dry, No Other ((+)erythema to b/l lower extremities. no open sores in the lower extremities) Head: Atraumatic, Normacephalic Eye(s): bilateral: Normal Inspection Oral Mucosa: Moist Neck: Supple Chest: Symmetrical Cardiovascular: Rhythm Regular, No Murmur Respiratory: Normal Breath Sounds, No Rales, No Rhonchi, No Wheezing Gastrointestinal/Abdominal: Soft, No Tenderness Extremity: Normal ROM, Tenderness (lower extremities), Pedal Edema (+3 edema to b/l lower extremities R>L), Capillary Refill (<2 sec.), No Deformity, Swelling ( lower extremities) Neurological/Psych: Oriented x3, Normal Speech, Normal Motor, Normal Sensation ED Course And Treatment O2 Sat by Pulse Oximetry: 96 Pulse Ox Interpretation: Normal Progress Note: Blood work, UA, CXR ordered and reviewed. Patient was given Clindamycin, Dilaudid, Vancomycin, and IV fluids. Case was d/c who accepted pt for an admission. Case was d/w pt's harness placer who sts patient will get HD tomorrow. Disposition - Disposition Disposition: HOSPITALIZED Disposition Time: 18:54 Condition: FAIR Forms: [facility] (Turkish) - Clinical Impression Clinical Impression: Cellulitis, ESRD on hemodialysis - PA / HUMAN RESOURCES DIRECTOR / Resident Statement MD/DO has reviewed & agrees with the documentation as recorded. - Scribe Statement The provider has reviewed the documentation as recorded by the Scribe Lucas Gaming All medical record entries made by the Scribe were at my direction and personally dictated by me. I have reviewed the chart and agree that the record accurately reflects my personal performance of the history, physical exam, medical decision making, and the department course for this patient. I have also personally directed, reviewed, and agree with the discharge instructions and disposition. Decision To Admit - Pt Status Changed To: Hospital Disposition Of: Inpatient - Admit Certification Admit to Inpatient:: After my assessment, the patient will require hospitalization for at least two midnights. This is because of the severity of symptoms shown, intensity of services needed, and/or the medical risk in this patient being treated as an outpatient. - InPatient: Physician Admission Certification: I certify that this patient requires 2 or more midnights of care for the following reason:: Pt will need more then 2 days of IV antibiotics. - . Bed Request Type: Regular Patient Diagnosis: Cellulitis, ESRD on hemodialysis
[2017-09-03 18:50] LABS: EOSINOPHIL 3 % (0-4); NEUTROPHIL 91 % (50-75); TOTAL CELLS COUNTED 100
[2017-09-03] MEDS ORDERED: Clindamycin 600mg/50ml D5W 600 MG/50 ML VIAL IVPB SCH (19:45)
--- NOTE | 2017-09-03 20:03 | RAD ---
PROCEDURE: CHEST RADIOGRAPH, 1 VIEW HISTORY: admission COMPARISON: 05/31/2017. FINDINGS: LUNGS: There is mild pulmonary venous congestion. No focal consolidation. PLEURA: No pneumothorax or pleural fluid seen. CARDIOVASCULAR: There is mild cardiomegaly and prominent central vasculature. OSSEOUS STRUCTURES: No significant abnormalities. VISUALIZED UPPER ABDOMEN: Normal. OTHER FINDINGS: None. IMPRESSION: Cardiomegaly and mild pulmonary venous congestion. No lobar pneumonia.
[2017-09-04] MEDS: Clindamycin 600mg/50ml NS 600 MG/50 ML BAG IVPB SCH ×3 (03:31→22:30)
[2017-09-04 07:32] LABS: BASO # 0.2 K/uL (0.0-0.2); BASO % 1.2 % (0.0-2.0); EOS # 0.2 K/uL (0.0-0.7); EOS % 1.4 % (0.0-4.0); LYMPH # 0.7 K/uL (1.0-4.3); LYMPH % 4.3 % (20.0-40.0); MEAN CELL VOLUME 75.3 fL (80.0-94.0); MEAN CORPUSCULAR HGB CONC 31.8 g/dL (33.0-37.0); MEAN PLATELET VOLUME 8.1 fL (7.2-11.7); MONO # 0.8 K/uL (0.0-0.8); MONO % 4.6 % (0.0-10.0); PLATELET COUNT 189 K/uL (130-400); RED CELL DISTRIBUTION WIDTH 18.1 % (11.5-14.5); WHITE BLOOD COUNT 16.3 K/uL (4.8-10.8)
[2017-09-04 09:19] LABS: EOSINOPHIL 1 % (0-4); NEUTROPHIL 91 % (50-75); TOTAL CELLS COUNTED 100
[2017-09-04 09:20] LABS: LARGE PLATELETS PRESENT
--- NOTE | 2017-09-04 12:50 | CP.PCM.CON ---
History of Present Illness - History of Present Illness History of Present Illness: 51 yo AA male, morbid obesity, ESRD, HTN, vasculits history, multiple admits for recurrent lower extremity cellulitis. Now presents with same, in setting of fever and elevated wbc. Last HD on Wednesday. Has [facility]. Renal consult for management of ESRD. Review of Systems - Constitutional Constitutional: Chills, Fever - EENT Eyes: absent: Blurred Vision, Change in Vision Ears: absent: Ear Discharge, Ear Pain Nose/Mouth/Throat: absent: Nasal Congestion, Tongue Swelling - Cardiovascular Cardiovascular: Leg Edema. absent: Chest Pain - Respiratory Respiratory: absent: Cough, Dyspnea - Gastrointestinal Gastrointestinal: absent: Abdominal Pain, Hematemesis - Genitourinary Genitourinary: absent: Change in Urinary Stream, Dysuria - Musculoskeletal Musculoskeletal: Arthralgias, Back Pain - Neurological Neurological: Weakness. absent: Abnormal Movements - Hematologic/Lymphatic Hematologic: absent: Easy Bleeding, Easy Bruising Past Patient History - Infectious Disease Hx of Infectious Diseases: None - Past Medical History & Family History Past Medical History?: Yes - Past Social History Smoking Status: Light Smoker < 10 Cigarettes Daily - CARDIAC Hx Hypertension: Yes Hx Peripheral Edema: Yes - PULMONARY Hx Bronchitis: Yes Hx Chronic Obstructive Pulmonary Disease (COPD): Yes - NEUROLOGICAL Hx Neurological Disorder: No - HEENT Hx HEENT Problems: No - RENAL Hx Chronic Kidney Disease: Yes - ENDOCRINE/METABOLIC Hx Diabetes Mellitus Type 2: Yes - HEMATOLOGICAL/ONCOLOGICAL Hx Anemia: Yes - INTEGUMENTARY Hx Dermatological Problems: Yes Hx Cellulitis: Yes (rt leg) - MUSCULOSKELETAL/RHEUMATOLOGICAL Hx Musculoskeletal Disorders: Yes Hx Falls: Yes - GASTROINTESTINAL Hx Gastrointestinal Disorders: Yes Hx Gastroesophageal Reflux: Yes - GENITOURINARY/GYNECOLOGICAL Hx Genitourinary Disorders: No - PSYCHIATRIC Hx Substance Use: No - SURGICAL HISTORY Hx Surgeries: Yes (Left arm AV Fistula) Hx Vascular Surgery: Yes ([facility]) - ANESTHESIA Hx Anesthesia: Yes Hx Anesthesia Reactions: No Hx Malignant Hyperthermia: No Meds Allergies/Adverse Reactions: Allergies Allergy/AdvReac Type Severity Reaction Status Date / Time piperacillin AdvReac ITCHING, Verified 09/03/17 14:38 SHORTNESS OF BREATH PET DANDER Allergy Severe CONGESTION Uncoded 07/12/17 21:02 - Medications Medications: Current Medications Famotidine (Pepcid) 20 mg IVP DAILY [facility] Last Admin: 09/04/17 10:54 Dose: 20 mg Heparin Sodium (Porcine) (Heparin) 5,000 units SC Q8 [facility] Last Admin: 09/04/17 05:07 Dose: 5,000 units Hydromorphone HCl (Dilaudid) 2 mg IVP Q12H PRN PRN Reason: pain Last Admin: 09/04/17 00:11 Dose: 2 mg Clindamycin Phosphate (Cleocin In Normal Saline Addvantage) 600 mg in 50 mls @ 102 mls/hr IVPB Q8H [facility] Last Admin: 09/04/17 10:54 Dose: 102 mls/hr Physical Exam - Constitutional Appears: Chronically Ill Additional comments: chills - Head Exam Head Exam: ATRAUMATIC - Eye Exam Eye Exam: EOMI, Normal appearance - ENT Exam ENT Exam: Mucous Membranes Moist - Neck Exam Neck exam: Positive for: Full Rom. Negative for: Lymphadenopathy - Respiratory Exam Respiratory Exam: Clear to Auscultation Bilateral. absent: Accessory Muscle Use - Cardiovascular Exam Cardiovascular Exam: REGULAR RHYTHM. absent: Rubs - GI/Abdominal Exam GI & Abdominal Exam: absent: Distended, Guarding - Extremities Exam Extremities exam: Positive for: pedal edema Additional comments: cellulitic changes erythema of right leg - Neurological Exam Neurological exam: Oriented x3 Results - Vital Signs Recent Vital Signs: Last Vital Signs Temp 99 F 09/04/17 10:39 Pulse 114 H 09/04/17 10:39 Resp 20 09/04/17 10:39 BP 136/68 09/04/17 10:39 Pulse Ox 98 09/04/17 10:39 - Labs Result Diagrams: 09/04/17 07:16 09/03/17 17:27 Labs: Laboratory Results - last 24 hr 09/03/17 09/03/17 09/04/17 17:27 17:27 07:16 WBC 24.4 H D 16.3 H RBC 3.80 L 3.71 L Hgb 8.9 L 8.9 L Hct 28.0 L 28.0 L MCV 73.7 L D 75.3 L MCH 23.5 L 24.0 L MCHC 31.9 L 31.8 L RDW 18.4 H 18.1 H Plt Count 201 D 189 MPV 8.2 8.1 Neut % (Auto) 89.6 H 88.5 H Lymph % (Auto) 4.0 L 4.3 L [place] % (Auto) 5.1 4.6 Eos % (Auto) 1.0 1.4 Baso % (Auto) 0.3 1.2 Neut # 21.8 H 14.5 H Lymph # 1.0 0.7 L [place] # 1.2 H 0.8 Eos # 0.2 0.2 Baso # 0.1 0.2 Neutrophils % (Manual) 91 H 91 H Band Neutrophils % 1 Lymphocytes % (Manual) 3 L 3 L Monocytes % (Manual) 3 4 Eosinophils % (Manual) 3 1 Platelet Estimate Normal Normal Large Platelets Present Hypochromasia (manual) Slight Slight Poikilocytosis (manual Slight Anisocytosis (manual) Slight Slight Microcytosis (manual) Slight Slight Ovalocytes Slight Sodium 132 Potassium 4.8 Chloride 94 L Carbon Dioxide 26 Anion Gap 17 BUN 63 H Creatinine 3.6 H Est GFR ( Amer) 22 Est GFR (Non-Af Amer) 18 Random Glucose 88 Calcium 9.1 Total Bilirubin 1.1 AST 34 ALT 19 L D Alkaline Phosphatase 84 Total Protein 9.2 H Albumin 3.8 Globulin 5.4 H Albumin/Globulin Ratio 0.7 L Assessment & Plan - Assessment and Plan (Free Text) Assessment: for HD today continue AB and wound care
[2017-09-04 14:26] LABS: RBC URINE 97 /hpf (0-3); URINE BILIRUBIN NEGATIVE (NEGATIVE); URINE BLOOD 3+ (NEGATIVE); URINE COLOR Yellow (YELLOW); URINE GLUCOSE (UA) NORMAL (Normal); URINE KETONE NEGATIVE (NEGATIVE); URINE LEUKOCYTE ESTERASE NEG Leu/uL (Negative); URINE PROTEIN 2+ mg/dL (NEGATIVE); WBC URINE 4 /hpf (0-5)
--- NOTE | 2017-09-04 14:58 | CP.PCM.PN ---
Subjective - Date & Time of Evaluation Date of Evaluation: 09/04/17 Time of Evaluation: 14:54 - Subjective Subjective: pt feels better , less legs pain recurrent admissions for cellulitis, this time also missed HD no chest pain or sob Objective - Vital Signs/Intake and Output Vital Signs (last 24 hours): Temp Pulse Resp BP Pulse Ox 99 F 114 H 20 136/68 98 09/04/17 10:39 09/04/17 10:39 09/04/17 10:39 09/04/17 10:39 09/04/17 10:39 - Medications Medications: Current Medications Famotidine (Pepcid) 20 mg IVP DAILY [facility] Last Admin: 09/04/17 10:54 Dose: 20 mg Heparin Sodium (Porcine) (Heparin) 5,000 units SC Q8 [facility] Last Admin: 09/04/17 13:03 Dose: 5,000 units Hydromorphone HCl (Dilaudid) 2 mg IVP Q12H PRN PRN Reason: pain Last Admin: 09/04/17 00:11 Dose: 2 mg Clindamycin Phosphate (Cleocin In Normal Saline Addvantage) 600 mg in 50 mls @ 102 mls/hr IVPB Q8H [facility] Last Admin: 09/04/17 10:54 Dose: 102 mls/hr - Labs Labs: 09/04/17 07:16 09/03/17 17:27 - Constitutional Appears: Well - Eye Exam Eye Exam: EOMI - ENT Exam ENT Exam: Mucous Membranes Moist - Respiratory Exam Respiratory Exam: Clear to Ausculation Bilateral - Cardiovascular Exam Cardiovascular Exam: REGULAR RHYTHM - GI/Abdominal Exam GI & Abdominal Exam: Normal Bowel Sounds - Rectal Exam Rectal Exam: Deferred (bl chronic leg edeam with thickening of the skin, pat has been bathed, there is no wheaping of skin as described by him at home) Assessment and Plan - Assessment and Plan (Free Text) Assessment: chronic recurrent cellulitis complicated by morbid obesity lymphadema wbc coming down afebrile bp stable for HD by Dr. Mota diabets; will check aic, lipids and fs he has not been to my office in some time, instead has been coming to the hospital multiple times discussed obesity and bariatric eval gi and dvt prophylaxis in place.
--- NOTE | 2017-09-04 15:04 | CP.PCM.HP ---
History of Present Illness - History of Present Illness History of Present Illness: cc; LEG PAIN AND DISCHARGE OF FLUID hpi; pT IS A 51 year old male with recent hospital admission with similar issues. I have seen him in my office a couple of times, but he does not follow regularly. He states he takes no meds at home. He states he missed HD this week because had some work being done and his appt, but ultematedly coudl not go due to pain in legs and chills. Pmh: Hemodyalisis dependent renal failure morbic obesiy lymphadema frequent hospital visit diabetes psh: social +smokes 6 cigarretes a day lives with a roomate on disability meds none at home family mom from ovarian cancer does not know much from his dad Present on Admission - Present on Admission Any Indicators Present on Admission: No History of Uncontrolled Diabetes: Yes Urinary Catheter: No Decubitus Ulcer Present: No History Surgical Site Infection Following: None Review of Systems - Constitutional Constitutional: Chills, Fever - Cardiovascular Cardiovascular: Pedal Edema. absent: Chest Pain, Palpitations - Respiratory Respiratory: absent: Cough, Dyspnea, Hemoptysis, Wheezing - Neurological Neurological: absent: Convulsions Past Patient History - Infectious Disease Hx of Infectious Diseases: None - Past Medical History & Family History Past Medical History?: Yes - Past Social History Smoking Status: Light Smoker < 10 Cigarettes Daily - CARDIAC Hx Hypertension: Yes Hx Peripheral Edema: Yes - PULMONARY Hx Bronchitis: Yes Hx Chronic Obstructive Pulmonary Disease (COPD): Yes - NEUROLOGICAL Hx Neurological Disorder: No - HEENT Hx HEENT Problems: No - RENAL Hx Chronic Kidney Disease: Yes - ENDOCRINE/METABOLIC Hx Diabetes Mellitus Type 2: Yes - HEMATOLOGICAL/ONCOLOGICAL Hx Anemia: Yes - INTEGUMENTARY Hx Dermatological Problems: Yes Hx Cellulitis: Yes (rt leg) - MUSCULOSKELETAL/RHEUMATOLOGICAL Hx Musculoskeletal Disorders: Yes Hx Falls: Yes - GASTROINTESTINAL Hx Gastrointestinal Disorders: Yes Hx Gastroesophageal Reflux: Yes - GENITOURINARY/GYNECOLOGICAL Hx Genitourinary Disorders: No - PSYCHIATRIC Hx Substance Use: No - SURGICAL HISTORY Hx Surgeries: Yes (Left arm AV Fistula) Hx Vascular Surgery: Yes ([facility] FOR DIALYSIS) - ANESTHESIA Hx Anesthesia: Yes Hx Anesthesia Reactions: No Hx Malignant Hyperthermia: No Meds Allergies/Adverse Reactions: Allergies Allergy/AdvReac Type Severity Reaction Status Date / Time piperacillin AdvReac ITCHING, Verified 09/03/17 14:38 SHORTNESS OF BREATH PET DANDER Allergy Severe CONGESTION Uncoded 07/12/17 21:02 Physical Exam - Constitutional Appears: Non-toxic, No Acute Distress - Eye Exam Eye Exam: EOMI - ENT Exam ENT Exam: Mucous Membranes Moist - Respiratory Exam Respiratory Exam: Clear to Auscultation Bilateral. absent: Accessory Muscle Use - Cardiovascular Exam Cardiovascular Exam: RRR, +S1, +S2. absent: Rubs, Systolic Murmur - GI/Abdominal Exam GI & Abdominal Exam: Normal Bowel Sounds, Soft. absent: Tenderness - Rectal Exam Rectal Exam: Deferred - Extremities Exam Extremities exam: Positive for: joint swelling (bl leg with thick skin due to chronic venous stasis, no wheaping observed) Results - Vital Signs Recent Vital Signs: Last Vital Signs Temp 99 F 09/04/17 10:39 Pulse 114 H 09/04/17 10:39 Resp 20 09/04/17 10:39 BP 136/68 09/04/17 10:39 Pulse Ox 98 09/04/17 10:39 - Labs Result Diagrams: 09/04/17 07:16 09/03/17 17:27 Labs: Laboratory Results - last 24 hr 09/03/17 09/03/17 09/03/17 14:13 17:27 17:27 WBC 24.4 H D RBC 3.80 L Hgb 8.9 L Hct 28.0 L MCV 73.7 L D MCH 23.5 L MCHC 31.9 L RDW 18.4 H Plt Count 201 D MPV 8.2 Neut % (Auto) 89.6 H Lymph % (Auto) 4.0 L Bath % (Auto) 5.1 Eos % (Auto) 1.0 Baso % (Auto) 0.3 Neut # 21.8 H Lymph # 1.0 Bath # 1.2 H Eos # 0.2 Baso # 0.1 Neutrophils % (Manual) 91 H Band Neutrophils % Lymphocytes % (Manual) 3 L Monocytes % (Manual) 3 Eosinophils % (Manual) 3 Platelet Estimate Normal Large Platelets Hypochromasia (manual) Slight Poikilocytosis (manual Anisocytosis (manual) Slight Microcytosis (manual) Slight Ovalocytes Sodium 132 Potassium 4.8 Chloride 94 L Carbon Dioxide 26 Anion Gap 17 BUN 63 H Creatinine 3.6 H Est GFR ( Amer) 22 Est GFR (Non-Af Amer) 18 Random Glucose 88 Calcium 9.1 Total Bilirubin 1.1 AST 34 ALT 19 L D Alkaline Phosphatase 84 Total Protein 9.2 H Albumin 3.8 Globulin 5.4 H Albumin/Globulin Ratio 0.7 L Urine Color Yellow Urine Clarity Clear Urine pH 6.0 Ur Specific [place] 1.015 Urine Protein 2+ H Urine Glucose (UA) Normal Urine Ketones Negative Urine Blood 3+ H Urine Nitrate Negative Urine Bilirubin Negative Urine Urobilinogen 2.0 Ur Leukocyte Esterase Neg Urine WBC (Auto) 4 Urine RBC (Auto) 97 H Ur Squamous Epith Cells 1 09/04/17 07:16 WBC 16.3 H RBC 3.71 L Hgb 8.9 L Hct 28.0 L MCV 75.3 L MCH 24.0 L MCHC 31.8 L RDW 18.1 H Plt Count 189 MPV 8.1 Neut % (Auto) 88.5 H Lymph % (Auto) 4.3 L Bath % (Auto) 4.6 Eos % (Auto) 1.4 Baso % (Auto) 1.2 Neut # 14.5 H Lymph # 0.7 L Bath # 0.8 Eos # 0.2 Baso # 0.2 Neutrophils % (Manual) 91 H Band Neutrophils % 1 Lymphocytes % (Manual) 3 L Monocytes % (Manual) 4 Eosinophils % (Manual) 1 Platelet Estimate Normal Large Platelets Present Hypochromasia (manual) Slight Poikilocytosis (manual Slight Anisocytosis (manual) Slight Microcytosis (manual) Slight Ovalocytes Slight Sodium Potassium Chloride Carbon Dioxide Anion Gap BUN Creatinine Est GFR ( Amer) Est GFR (Non-Af Amer) Random Glucose Calcium Total Bilirubin AST ALT Alkaline Phosphatase Total Protein Albumin Globulin Albumin/Globulin Ratio Urine Color Urine Clarity Urine pH Ur Specific [place] Urine Protein Urine Glucose (UA) Urine Ketones Urine Blood Urine Nitrate Urine Bilirubin Urine Urobilinogen Ur Leukocyte Esterase Urine WBC (Auto) Urine RBC (Auto) Ur Squamous Epith Cells Assessment & Plan - Assessment and Plan (Free Text) Assessment: cellulitis with wbc evation pt recieved vanco and clinda in ER admit blood culture cont clinda HD by dr Malone
[2017-09-04] MEDS ORDERED: Epoetin Alfa 10,000 unit/ml Dialysis IV SCH (16:30)
[2017-09-04] MEDS ORDERED: Morphine 4 MG/ML VIAL IV ONE ×2 (17:45→18:00)
[2017-09-05] MEDS: Clindamycin 600mg/50ml NS 600 MG/50 ML BAG IVPB SCH ×3 (03:47→20:23)
[2017-09-05 08:04] LABS: BASO % 0.2 % (0.0-2.0); EOS # 0.1 K/uL (0.0-0.7); EOS % 0.8 % (0.0-4.0); HEMATOCRIT 25.5 % (35.0-51.0); LYMPH % 6.1 % (20.0-40.0); MEAN CELL VOLUME 74.1 fL (80.0-94.0); MEAN CORPUSCULAR HEMOGLOBIN 23.9 pg (27.0-31.0); MEAN CORPUSCULAR HGB CONC 32.3 g/dL (33.0-37.0); MONO # 0.8 K/uL (0.0-0.8); MONO % 4.5 % (0.0-10.0); PLATELET COUNT 188 K/uL (130-400); RED CELL DISTRIBUTION WIDTH 17.9 % (11.5-14.5); WHITE BLOOD COUNT 16.9 K/uL (4.8-10.8)
[2017-09-05 11:23] LABS: EOSINOPHIL 1 % (0-4); NEUTROPHIL 91 % (50-75); TOTAL CELLS COUNTED 100
[2017-09-06] MEDS: Clindamycin 600mg/50ml NS 600 MG/50 ML BAG IVPB SCH ×2 (03:10→10:54)
[2017-09-06 06:48] LABS: BASO # 0.1 K/uL (0.0-0.2); BASO % 0.6 % (0.0-2.0); EOS # 0.4 K/uL (0.0-0.7); EOS % 3.6 % (0.0-4.0); HEMATOCRIT 27.1 % (35.0-51.0); LYMPH # 0.9 K/uL (1.0-4.3); LYMPH % 8.8 % (20.0-40.0); MEAN CELL VOLUME 75.5 fL (80.0-94.0); MEAN CORPUSCULAR HEMOGLOBIN 24.6 pg (27.0-31.0); MEAN CORPUSCULAR HGB CONC 32.6 g/dL (33.0-37.0); MEAN PLATELET VOLUME 8.3 fL (7.2-11.7); MONO # 0.8 K/uL (0.0-0.8); MONO % 7.6 % (0.0-10.0); PLATELET COUNT 209 K/uL (130-400); RED CELL DISTRIBUTION WIDTH 18.2 % (11.5-14.5); WHITE BLOOD COUNT 10.2 K/uL (4.8-10.8)
[2017-09-06 08:16] VITALS: BP 135/73; PULSE 84; RESP 20; TEMP 98.2; O2SAT 95
[2017-09-06 09:03] LABS: EOSINOPHIL 7 % (0-4); NEUTROPHIL 72 % (50-75); TOTAL CELLS COUNTED 100
--- NOTE | 2017-09-06 10:34 | CP.PCM.DIS ---
Provider - Provider Date of Admission: 09/03/17 18:50 Attending physician: Ivet Alegre MD Time Spent in preparation of Discharge (in minutes): 30 Diagnosis - Discharge Diagnosis (1) Cellulitis Status: Acute Hospital Course - Lab Results Lab Results: Micro Results 09/03/17 18:20 Blood Blood Culture - Preliminary NO GROWTH AFTER 48 HOURS 09/03/17 14:30 Blood Blood Culture - Preliminary NO GROWTH AFTER 48 HOURS Most Recent Lab Values WBC 10.2 K/uL (4.8-10.8) 09/06/17 06:25 RBC 3.58 Mil/uL (4.40-5.90) L 09/06/17 06:25 Hgb 8.8 g/dL (12.0-18.0) L 09/06/17 06:25 Hct 27.1 % (35.0-51.0) L 09/06/17 06:25 MCV 75.5 fL (80.0-94.0) L 09/06/17 06:25 MCH 24.6 pg (27.0-31.0) L 09/06/17 06:25 MCHC 32.6 g/dL (33.0-37.0) L 09/06/17 06:25 RDW 18.2 % (11.5-14.5) H 09/06/17 06:25 Plt Count 209 K/uL (130-400) 09/06/17 06:25 MPV 8.3 fL (7.2-11.7) 09/06/17 06:25 Neut % (Auto) 79.4 % (50.0-75.0) H 09/06/17 06:25 Lymph % (Auto) 8.8 % (20.0-40.0) L 09/06/17 06:25 [place] % (Auto) 7.6 % (0.0-10.0) 09/06/17 06:25 Eos % (Auto) 3.6 % (0.0-4.0) 09/06/17 06:25 Baso % (Auto) 0.6 % (0.0-2.0) 09/06/17 06:25 Neut # 8.1 K/uL (1.8-7.0) H 09/06/17 06:25 Lymph # 0.9 K/uL (1.0-4.3) L 09/06/17 06:25 [place] # 0.8 K/uL (0.0-0.8) 09/06/17 06:25 Eos # 0.4 K/uL (0.0-0.7) 09/06/17 06:25 Baso # 0.1 K/uL (0.0-0.2) 09/06/17 06:25 Neutrophils % (Manual) 72 % (50-75) 09/06/17 06:25 Band Neutrophils % 4 % (0-2) H 09/06/17 06:25 Lymphocytes % (Manual) 9 % (20-40) L 09/06/17 06:25 Monocytes % (Manual) 8 % (0-10) 09/06/17 06:25 Eosinophils % (Manual) 7 % (0-4) H 09/06/17 06:25 Platelet Estimate Normal (NORMAL) 09/06/17 06:25 Large Platelets Present 09/04/17 07:16 Polychromasia Slight 09/05/17 07:54 Hypochromasia (manual) Slight 09/06/17 06:25 Poikilocytosis (manual Slight 09/06/17 06:25 Anisocytosis (manual) Slight 09/06/17 06:25 Microcytosis (manual) Slight 09/04/17 07:16 Target Cells Slight 09/06/17 06:25 Tear Drop Cells Slight 09/06/17 06:25 Ovalocytes Slight 09/04/17 07:16 Sodium 132 mmol/L (132-148) 09/03/17 17:27 Potassium 4.8 mmol/L (3.6-5.2) 09/03/17 17:27 Chloride 94 mmol/L (98-107) L 09/03/17 17:27 Carbon Dioxide 26 mmol/L (22-30) 09/03/17 17:27 Anion Gap 17 (10-20) 09/03/17 17:27 BUN 63 mg/dL (9-20) H 09/03/17 17:27 Creatinine 3.6 mg/dL (0.8-1.5) H 09/03/17 17:27 Est GFR ( Amer) 22 09/03/17 17:27 Est GFR (Non-Af Amer) 18 09/03/17 17:27 POC Glucose (mg/dL) 89 mg/dL (65-110) 09/06/17 07:20 Random Glucose 88 mg/dL (75-110) 09/03/17 17:27 Hemoglobin A1c 6.2 % (4.2-6.5) 09/05/17 07:54 Calcium 9.1 mg/dl (8.6-10.4) 09/03/17 17:27 Total Bilirubin 1.1 mg/dL (0.2-1.3) 09/03/17 17:27 AST 34 U/L (17-59) 09/03/17 17:27 ALT 19 U/L (21-72) L D 09/03/17 17:27 Alkaline Phosphatase 84 U/L (38-126) 09/03/17 17:27 Total Protein 9.2 g/dL (6.3-8.3) H 09/03/17 17:27 Albumin 3.8 g/dL (3.5-5.0) 09/03/17 17:27 Globulin 5.4 gm/dL (2.2-3.9) H 09/03/17 17:27 Albumin/Globulin Ratio 0.7 (1.0-2.1) L 09/03/17 17:27 Urine Color Yellow (YELLOW) 09/03/17 14:13 Urine Clarity Clear (Clear) 09/03/17 14:13 Urine pH 6.0 (5.0-8.0) 09/03/17 14:13 Ur Specific [place] 1.015 (1.003-1.030) 09/03/17 14:13 Urine Protein 2+ mg/dL (NEGATIVE) H 09/03/17 14:13 Urine Glucose (UA) Normal mg/dL (Normal) 09/03/17 14:13 Urine Ketones Negative mg/dL (NEGATIVE) 09/03/17 14:13 Urine Blood 3+ (NEGATIVE) H 09/03/17 14:13 Urine Nitrate Negative (NEGATIVE) 09/03/17 14:13 Urine Bilirubin Negative (NEGATIVE) 09/03/17 14:13 Urine Urobilinogen 2.0 mg/dL (0.2-1.0) 09/03/17 14:13 Ur Leukocyte Esterase Neg Alisha/uL (Negative) 09/03/17 14:13 Urine WBC (Auto) 4 /hpf (0-5) 09/03/17 14:13 Urine RBC (Auto) 97 /hpf (0-3) H 09/03/17 14:13 Ur Squamous Epith Cells 1 /hpf (0-5) 09/03/17 14:13 - Hospital Course Hospital Course: Pt was admitted with cellulitis of lower extremitiews and a wbc of 22,000. NO fever He had negative blood cultures. He was treated with iv Clinda. He continued his hemodyalisis treatment. pt was seen by Dr. Nkaul irene. Hospital course was otherwise unremarkable. Discharge Exam - Head Exam Head Exam: ATRAUMATIC, NORMAL INSPECTION - ENT Exam ENT Exam: Mucous Membranes Moist - Respiratory Exam Respiratory Exam: Clear to PA & Lateral - Cardiovascular Exam Cardiovascular Exam: REGULAR RHYTHM, RRR, +S1, +S2 - GI/Abdominal Exam GI & Abdominal Exam: Normal Bowel Sounds, Unremarkable - Extremities Exam Extremities exam: joint swelling (chronic leg sking changes, venous stasis , morbid obesity, skin dry and clean) Discharge Plan - Discharge Medications Prescriptions: Docusate [Colace] 100 mg PO BID 30 Days #60 cap - Follow Up Plan Condition: GOOD Disposition: HOME/ ROUTINE
--- NOTE | 2017-09-06 10:40 | CP.PCM.PN ---
Subjective - Date & Time of Evaluation Date of Evaluation: 09/05/17 Time of Evaluation: 15:00 - Subjective Subjective: PT had a good night complaining of constipation no fever no chills Objective - Vital Signs/Intake and Output Vital Signs (last 24 hours): Temp Pulse Resp BP Pulse Ox 98.2 F 84 20 135/73 95 09/06/17 08:10 09/06/17 08:10 09/06/17 08:10 09/06/17 08:10 09/06/17 08:10 Intake and Output: 09/06/17 09/06/17 06:59 18:59 Intake Total 700 Output Total 400 Balance 300 - Medications Medications: Current Medications Acetaminophen (Tylenol 325mg Tab) 650 mg PO Q6 PRN PRN Reason: Pain, Mild (1-3) Docusate Sodium (Colace) 100 mg PO BID [facility] Last Admin: 09/06/17 09:14 Dose: Not Given Epoetin [place] (Procrit) 10,000 unit IV TTS [facility] Last Admin: 09/04/17 20:42 Dose: 10,000 unit Famotidine (Pepcid) 20 mg IVP DAILY [facility] Last Admin: 09/06/17 09:13 Dose: 20 mg Heparin Sodium (Porcine) (Heparin) 5,000 units SC Q8 [facility] Last Admin: 09/06/17 05:23 Dose: 5,000 units Clindamycin Phosphate (Cleocin In Normal Saline Addvantage) 600 mg in 50 mls @ 102 mls/hr IVPB Q8H [facility] Last Admin: 09/06/17 03:10 Dose: 102 mls/hr Lactulose (Enulose) 20 gm PO ONCE PRN PRN Reason: repeat in 1 hour if no bm Last Admin: 09/05/17 17:05 Dose: 20 gm Tramadol HCl (Ultram) 50 mg PO Q4H PRN PRN Reason: Pain, moderate (4-7) Last Admin: 09/06/17 03:11 Dose: 50 mg - Labs Labs: 09/06/17 06:25 09/03/17 17:27 - Constitutional Appears: Well - ENT Exam ENT Exam: Mucous Membranes Moist - Respiratory Exam Respiratory Exam: Clear to Ausculation Bilateral - Cardiovascular Exam Cardiovascular Exam: REGULAR RHYTHM - Rectal Exam Rectal Exam: Deferred Assessment and Plan (1) Cellulitis Assessment & Plan: continue antibiotics repeat cbc in AM constipation colace and lactulose prn constipation Status: Acute
--- NOTE | 2017-09-06 12:06 | CP.PCM.PN ---
Subjective - Date & Time of Evaluation Date of Evaluation: 09/06/17 Time of Evaluation: 12:04 - Subjective Subjective: Satble dialysis 09/04 Feels much better Alert- in NAD cellulitis improved no f, c, diarrhea, CPs, [place] Objective - Vital Signs/Intake and Output Vital Signs (last 24 hours): Temp Pulse Resp BP Pulse Ox 98.2 F 84 20 135/73 95 09/06/17 08:10 09/06/17 08:10 09/06/17 08:10 09/06/17 08:10 09/06/17 08:10 Intake and Output: 09/06/17 09/06/17 06:59 18:59 Intake Total 700 Output Total 400 Balance 300 - Medications Medications: Current Medications Acetaminophen (Tylenol 325mg Tab) 650 mg PO Q6 PRN PRN Reason: Pain, Mild (1-3) Docusate Sodium (Colace) 100 mg PO BID [facility] Last Admin: 09/06/17 09:14 Dose: Not Given Epoetin [place] (Procrit) 10,000 unit IV TTS [facility] Last Admin: 09/04/17 20:42 Dose: 10,000 unit Famotidine (Pepcid) 20 mg IVP DAILY [facility] Last Admin: 09/06/17 09:13 Dose: 20 mg Heparin Sodium (Porcine) (Heparin) 5,000 units SC Q8 [facility] Last Admin: 09/06/17 05:23 Dose: 5,000 units Clindamycin Phosphate (Cleocin In Normal Saline Addvantage) 600 mg in 50 mls @ 102 mls/hr IVPB Q8H [facility] Last Admin: 09/06/17 10:54 Dose: 102 mls/hr Lactulose (Enulose) 20 gm PO ONCE PRN PRN Reason: repeat in 1 hour if no bm Last Admin: 09/05/17 17:05 Dose: 20 gm Tramadol HCl (Ultram) 50 mg PO Q4H PRN PRN Reason: Pain, moderate (4-7) Last Admin: 09/06/17 10:53 Dose: 50 mg - Labs Labs: 09/06/17 06:25 09/03/17 17:27 - Constitutional Appears: No Acute Distress, Chronically Ill - Head Exam Head Exam: ATRAUMATIC, NORMAL INSPECTION - Eye Exam Eye Exam: EOMI, Normal appearance - Neck Exam Neck Exam: Normal Inspection. absent: Tenderness - Respiratory Exam Respiratory Exam: Clear to Ausculation Bilateral, NORMAL BREATHING PATTERN - Cardiovascular Exam Cardiovascular Exam: REGULAR RHYTHM, +S1 - GI/Abdominal Exam GI & Abdominal Exam: Soft. absent: Tenderness - Extremities Exam Extremities Exam: Pedal Edema, Tenderness - Neurological Exam Neurological Exam: Awake, CN II-XII Intact - Skin Skin Exam: Dry, Warm Assessment and Plan (1) Cellulitis Status: Acute (2) ESRD on hemodialysis Status: Chronic - Assessment and Plan (Free Text) Plan: Likely for discharge today Dialysis in AM
== END 2017-09-06 14:18 | disposition home or self-care (01) | DRG 602 ==
LOC: C.ER 14:28 → C.9E 18:50 → C.5S 22:22 → C.3T 09-04 21:14
PROVIDERS: ADMIT Internal Medicine; ATTEND Internal Medicine
PROC: 5A1D70Z Performance of Urinary Filtration, Intermittent, Less than 6 Hours Per Day (ICD-10-PCS; principal; 2017-09-04)
DX: L03.116 Cellulitis of left lower limb (principal); N18.6 End stage renal disease; I12.0 Hypertensive chronic kidney disease with stage 5 chronic kidney disease or end stage renal disease; E11.22 Type 2 diabetes mellitus with diabetic chronic kidney disease; Z68.43 Body mass index [BMI] 50.0-59.9, adult; L03.115 Cellulitis of right lower limb; Z99.2 Dependence on renal dialysis; E66.01 Morbid (severe) obesity due to excess calories; J44.9 Chronic obstructive pulmonary disease, unspecified; K59.00 Constipation, unspecified; F17.210 Nicotine dependence, cigarettes, uncomplicated

== ENCOUNTER 2017-10-22 03:05 | Inpatient (IN) | payer MEDICARE ==
[2017-10-22 03:05] VITALS: BMI 55.7
--- NOTE | 2017-10-22 03:49 | C.PDOC ---
History Of Present Illness 51 year old morbidly obese male with PMH of ESRD on HD presents to ED with complaints of pain to right leg and having cellulitis. He reports noticing leg was leaking. He states has multiple admission for recurrent lower extremity cellulitis. Last HD on Wednesday, 4 days ago. Patient reports was unable to go 2 days ago, because having trouble ambulating. Time Seen by Provider: 10/22/17 03:22 Chief Complaint (Nursing): Lower Extremity Problem/Injury History Per: Patient History/Exam Limitations: no limitations Onset/Duration Of Symptoms: Days Current Symptoms Are (Timing): Still Present Past Medical History Reviewed: Historical Data, Nursing Documentation, Vital Signs Vital Signs: Last Vital Signs Temp 97.7 F 10/22/17 03:16 Pulse 86 10/22/17 03:16 Resp 18 10/22/17 03:16 BP 93/62 L 10/22/17 03:16 Pulse Ox 96 10/22/17 05:04 - Medical History PMH: Anemia, Bronchitis, COPD, Diabetes, HTN, Peripheral Edema, End Stage Renal Disease, Chronic Kidney Disease, Chronic Pain - [facility] Procedures (09/03/17) DIALYSIS ARTERIOVENOSTOM (05/07/14) DILATION OF LEFT BRACHIAL VEIN, PERCUTANEOUS APPROACH (08/04/16) DRESSING OF WOUND NEC (05/29/14) EXTIRPATION OF MATTER FROM L BRACH ART, PERC APPROACH (08/04/16) EXTIRPATION OF MATTER FROM LEFT BRACHIAL VEIN, PERC APPROACH (08/04/16) HEMODIALYSIS (05/29/14) OTHER FASCIECTOMY (05/29/14) PACKED CELL TRANSFUSION (05/29/14) PERCUTAN NEEDLE BIOPSY OF KIDNEY (01/30/14) PERFORMANCE OF URINARY FILTRATION, MULTIPLE (08/04/17) VENOUS CATHETERIZATION FOR RENAL DIALYSIS (01/18/14) VENOUS CATHETERIZATION NEC (09/22/13) Family History: States: Unknown Family Hx - Social History Hx Tobacco Use: No Hx Alcohol Use: Yes (Occasionally) Hx Substance Use: No - Immunization History Hx Tetanus Toxoid Vaccination: Yes (w/in 5 years) Hx Influenza Vaccination: Yes Hx Pneumococcal Vaccination: No Review Of Systems Constitutional: Positive for: Malaise. Negative for: Fever, Chills Cardiovascular: Negative for: Chest Pain, Palpitations Respiratory: Negative for: Cough, Shortness of Breath Gastrointestinal: Negative for: Vomiting, Abdominal Pain, Diarrhea Skin: Positive for: Other (swelling, redness) Neurological: Negative for: Headache Physical Exam - Physical Exam Appears: Non-toxic, No Acute Distress, Other (Morbidly obese) Skin: Warm, Dry Head: Atraumatic, Normacephalic Eye(s): bilateral: EOMI, right: Other (Right eye strabismus), left: Normal Inspection Nose: Normal Oral Mucosa: Moist Neck: Normal ROM Chest: Symmetrical Cardiovascular: Rhythm Regular Respiratory: Normal Breath Sounds, No Rhonchi Gastrointestinal/Abdominal: Soft Neurological/Psych: Oriented x3, Normal Speech Additional Physical Exam Comments: Lower Extremities: Chronic venous stasis, xerosis, lymphedema and swelling to bilateral lower extremities, no weeping or discharge noted, no foul odor. Right posterior knee area is erythematous and tender to palpation. ED Course And Treatment - Laboratory Results Result Diagrams: 10/22/17 04:01 10/22/17 04:01 O2 Sat by Pulse Oximetry: 96 Medical Decision Making Medical Decision Making: Impression: LE swelling, pain and cellulitis Prior records reviewed: patient last admitted 09/03/17 for cellulitis Plan: Labs, IV Vanco, Dilaudid Progress: Labs reviewed patient has leukocytosis >25, last WBC from 09/03/17 was [address].2. 04:[address] Alegre 05:03 DR Alegre calls back and reports she is out of town for the holiday weekend and will return 10/25/17 and asks that patient be admitted to hospitalist. Jana hospitalist. Spoke with hospitalist Dr Quinn who accepted case Disposition - Disposition Disposition: HOSPITALIZED Disposition Time: 05:18 Condition: FAIR - POA Present On Arrival: None - Clinical Impression Clinical Impression: ESRD (end stage renal disease), Lymphedema in adult patient, Elevated WBC count , Cellulitis of extremity Decision To Admit - Pt Status Changed To: Hospital Disposition Of: Inpatient - Admit Certification Admit to Inpatient:: After my assessment, the patient will require hospitalization for at least two midnights. This is because of the severity of symptoms shown, intensity of services needed, and/or the medical risk in this patient being treated as an outpatient. - InPatient: Physician Admission Certification: I certify that this patient requires 2 or more midnights of care for the following reason:: Patient with chronic comorbidities and recurrent cellulitis of lower extremities - . Bed Request Type: Regular Admitting Physician: Ti Quinn Patient Diagnosis: ESRD (end stage renal disease), Lymphedema in adult patient, Elevated WBC count , Cellulitis of extremity
[2017-10-22] MEDS ORDERED: Vancomycin 1 gm/NS 200 ml 1 GM/200 ML BAG IVPB ONE (04:00)
[2017-10-22 04:04] LABS: BASO # 0.1 K/uL (0.0-0.2); BASO % 0.2 % (0.0-2.0); EOS # 0.3 K/uL (0.0-0.7); HEMATOCRIT 32.6 % (35.0-51.0); LYMPH # 1.1 K/uL (1.0-4.3); LYMPH % 4.4 % (20.0-40.0); MEAN CORPUSCULAR HEMOGLOBIN 24.2 pg (27.0-31.0); MEAN CORPUSCULAR HGB CONC 31.9 g/dL (33.0-37.0); MEAN PLATELET VOLUME 8.3 fL (7.2-11.7); MONO # 1.3 K/uL (0.0-0.8); MONO % 5.2 % (0.0-10.0); PLATELET COUNT 289 K/uL (130-400); RED CELL DISTRIBUTION WIDTH 19.4 % (11.5-14.5)
[2017-10-22 04:10] LABS: INR 1.2
[2017-10-22 04:16] LABS: ALB/GLOB RATIO 0.8 (1.0-2.1); BILIRUBIN,TOTAL 1.3 mg/dL (0.2-1.3); CALCIUM 8.7 mg/dl (8.6-10.4); POTASSIUM 4.4 mmol/L (3.6-5.2); TOTAL PROTEIN 8.7 g/dL (6.3-8.3)
[2017-10-22 04:47] LABS: RBC URINE 284 /hpf (0-3); URINE BACTERIA RARE (<OCC); URINE BILIRUBIN NEGATIVE (NEGATIVE); URINE BLOOD 3+ (NEGATIVE); URINE COLOR Yellow (YELLOW); URINE GLUCOSE (UA) NORMAL (Normal); URINE KETONE NEGATIVE (NEGATIVE); URINE LEUKOCYTE ESTERASE NEG Leu/uL (Negative); URINE PROTEIN 2+ mg/dL (NEGATIVE); WBC URINE 12 /hpf (0-5)
[2017-10-22 05:15] LABS: ERYTHROCYTE SEDIMENTATION RATE 105 mm/hr (0-15)
[2017-10-22 05:25] LABS: EOSINOPHIL 4 % (0-4); NEUTROPHIL 84 % (50-75); TOTAL CELLS COUNTED 100
--- NOTE | 2017-10-22 07:06 | CP.PCM.HP ---
<SherryGracy L. - Last Filed: 10/22/17 06:56> History of Present Illness - History of Present Illness History of Present Illness: CC: left leg pain and cellulitis HPI: Patient is a 51 y/o M with PMHx of ESRD on dialysis, cellulitis, chronic lymphedema, and morbid obesity presents today for right leg pain since Wednesday. Patient say the his leg feels like pins and needles with sharp stabbing pain. Nothing makes the pain better and touching the leg makes the pain worse. Patient has had cellulitis in the past and when he started feeling pain he took some leftover Clindamycin he had. Patient also takes Naproxen for pain. Patient came in today because pain was not subsiding. Patient normally gets dialysis on , Wednesday, but because of the holiday was switched to a , , Wed schedule. Wed patient was unable to get dialysis due to poor access. Patient was scheduled to go to the vein center today to try and re-obtain the access. Patient denies headache, blurry vision, shortness of breath, chest pain , abdominal pain, nausea, vomiting, constipation, diarrhea. PMD: Dr. Alegre PMHx: ESRD on dialysis, cellulitis, chronic lymphedema, and morbid obesity Psurg: Left leg wound debridement 3 years ago, dialysis catheters, AVF left upper extremity Famhx: mother: from ovarian CA at 62 y/o, thyroid disease Social: Tobacco: 8-10 cigarettes per day for 18 years, alcohol: few drinks once every 6 months, drugs: marijuana, on weekends occasionally, last smoked a few days ago Present on Admission - Present on Admission Any Indicators Present on Admission: No History of DVT/PE: No History of Uncontrolled Diabetes: No Urinary Catheter: No Decubitus Ulcer Present: No Review of Systems - Constitutional Constitutional: absent: Fatigue, Fever - EENT Eyes: absent: Blurred Vision, Diplopia - Cardiovascular Cardiovascular: Leg Edema. absent: Chest Pain, Dyspnea, Palpitations - Respiratory Respiratory: absent: Cough, Wheezing, Stridor, Chest Congestion - Gastrointestinal Gastrointestinal: absent: Abdominal Pain, Diarrhea, Nausea, Vomiting - Genitourinary Genitourinary: absent: Difficulty Urinating - Musculoskeletal Musculoskeletal: Myalgias, Tingling. absent: Numbness - Integumentary Integumentary: Dry Skin, Swelling - Hematologic/Lymphatic Hematologic: absent: Easy Bleeding, Easy Bruising Past Patient History - Infectious Disease Hx of Infectious Diseases: None - Past Medical History & Family History Past Medical History?: Yes - Past Social History Smoking Status: Heavy Smoker > 10 Cigarettes Daily - CARDIAC Hx Hypertension: Yes Hx Peripheral Edema: Yes - PULMONARY Hx Bronchitis: Yes Hx Chronic Obstructive Pulmonary Disease (COPD): Yes - NEUROLOGICAL Hx Neurological Disorder: No - HEENT Hx HEENT Problems: No - RENAL Hx Chronic Kidney Disease: Yes - ENDOCRINE/METABOLIC Hx Endocrine Disorders: Yes Hx Diabetes Mellitus Type 2: Yes - HEMATOLOGICAL/ONCOLOGICAL Hx Anemia: Yes - INTEGUMENTARY Hx Dermatological Problems: Yes Hx Cellulitis: Yes (BILATERAL LEGS) - MUSCULOSKELETAL/RHEUMATOLOGICAL Hx Musculoskeletal Disorders: Yes Hx Falls: Yes - GASTROINTESTINAL Hx Gastrointestinal Disorders: Yes Hx Gastroesophageal Reflux: Yes - GENITOURINARY/GYNECOLOGICAL Hx Genitourinary Disorders: No - PSYCHIATRIC Hx Substance Use: No - SURGICAL HISTORY Hx Surgeries: Yes (Left arm AV Fistula) Hx Vascular Surgery: Yes (ACCESS FOR DIALYSIS) - ANESTHESIA Hx Anesthesia: Yes Hx Anesthesia Reactions: No Hx Malignant Hyperthermia: No Meds Allergies/Adverse Reactions: Allergies Allergy/AdvReac Type Severity Reaction Status Date / Time piperacillin AdvReac ITCHING, Verified 10/22/17 03:21 SHORTNESS OF BREATH PET DANDER Allergy Severe CONGESTION Uncoded 10/22/17 03:21 Physical Exam - Constitutional Appears: Non-toxic, No Acute Distress Additional comments: morbidly obese - Head Exam Head Exam: ATRAUMATIC, NORMAL INSPECTION, NORMOCEPHALIC - Eye Exam Eye Exam: EOMI, Normal appearance - ENT Exam ENT Exam: Mucous Membranes Moist - GI/Abdominal Exam GI & Abdominal Exam: Normal Bowel Sounds, Soft. absent: Tenderness - Extremities Exam Extremities exam: Positive for: pedal edema, tenderness Additional comments: chronic LE lymphedema - Neurological Exam Neurological exam: Alert, Oriented x3 - Psychiatric Exam Psychiatric exam: Normal Affect, Normal Mood - Skin Skin Exam: Dry, Normal Color Results - Vital Signs Recent Vital Signs: Last Vital Signs Temp 98 F 10/22/17 06:22 Pulse 64 10/22/17 06:22 Resp 20 10/22/17 06:22 BP 96/60 L 10/22/17 06:22 Pulse Ox 98 10/22/17 06:22 - Labs Result Diagrams: 10/22/17 04:01 10/22/17 04:01 Labs: Laboratory Results - last 24 hr 10/22/17 10/22/17 10/22/17 04:01 04:01 04:01 WBC 25.0 H D RBC 4.29 L Hgb 10.4 L Hct 32.6 L MCV 76.0 L MCH 24.2 L MCHC 31.9 L RDW 19.4 H Plt Count 289 MPV 8.3 Neut % (Auto) 89.2 H Lymph % (Auto) 4.4 L [place] % (Auto) 5.2 Eos % (Auto) 1.0 Baso % (Auto) 0.2 Neut # 22.3 H Lymph # 1.1 [place] # 1.3 H Eos # 0.3 Baso # 0.1 Neutrophils % (Manual) 84 H Lymphocytes % (Manual) 9 L Monocytes % (Manual) 3 Eosinophils % (Manual) 4 Platelet Estimate Normal ESR 105 H PT 14.0 H INR 1.2 APTT 36 H Sodium 133 Potassium 4.4 Chloride 94 L Carbon Dioxide 26 Anion Gap 18 BUN 80 H Creatinine 4.7 H Est GFR ( Amer) 16 Est GFR (Non-Af Amer) 13 Random Glucose 107 Calcium 8.7 Total Bilirubin 1.3 AST 29 ALT 29 Alkaline Phosphatase 118 NT-Pro-B Natriuret Pep 127 Total Protein 8.7 H Albumin 3.9 Globulin 4.8 H Albumin/Globulin Ratio 0.8 L Urine Color Urine Clarity Urine pH Ur Specific [place] Urine Protein Urine Glucose (UA) Urine Ketones Urine Blood Urine Nitrate Urine Bilirubin Urine Urobilinogen Ur Leukocyte Esterase Urine WBC (Auto) Urine RBC (Auto) Ur Squamous Epith Cells Urine Bacteria 10/22/17 04:41 WBC RBC Hgb Hct MCV MCH MCHC RDW Plt Count MPV Neut % (Auto) Lymph % (Auto) [place] % (Auto) Eos % (Auto) Baso % (Auto) Neut # Lymph # [place] # Eos # Baso # Neutrophils % (Manual) Lymphocytes % (Manual) Monocytes % (Manual) Eosinophils % (Manual) Platelet Estimate ESR PT INR APTT Sodium Potassium Chloride Carbon Dioxide Anion Gap BUN Creatinine Est GFR ( Amer) Est GFR (Non-Af Amer) Random Glucose Calcium Total Bilirubin AST ALT Alkaline Phosphatase NT-Pro-B Natriuret Pep Total Protein Albumin Globulin Albumin/Globulin Ratio Urine Color Yellow Urine Clarity Clear Urine pH 5.0 Ur Specific [place] 1.016 Urine Protein 2+ H Urine Glucose (UA) Normal Urine Ketones Negative Urine Blood 3+ H Urine Nitrate Negative Urine Bilirubin Negative Urine Urobilinogen 2.0 Ur Leukocyte Esterase Neg Urine WBC (Auto) 12 H Urine RBC (Auto) 284 H Ur Squamous Epith Cells 1 Urine Bacteria Rare Assessment & Plan - Assessment and Plan (Free Text) Assessment: 1. Cellulitis right LE with history cellulitis WBC: 25 on admission will start Clindamycin 300mg q6h Nystatin powder for skin folds tramadol 50mg q8h prn for pain f/u blood cultures 2. ESRD on HD, poor access HD TTS, this week MWF (missed Wed) renal diet Dr. Mota consulted- help appreciated 3. Prophylactic measure GI: pepcid 20mg daily DVT: heparin 5000 q8h physical therapy eval <Ti Quinn - Last Filed: 10/23/17 06:24> Results - Vital Signs Recent Vital Signs: Last Vital Signs Temp 97.9 F 10/22/17 23:30 Pulse 71 10/22/17 23:30 Resp 20 10/22/17 23:30 BP 126/72 10/22/17 23:30 Pulse Ox 95 10/22/17 23:30 - Labs Result Diagrams: 10/22/17 04:01 10/22/17 04:01 Labs: Laboratory Results - last 24 hr 10/22/17 10/22/17 06:54 16:57 POC Glucose (mg/dL) 86 112 H Assessment & Plan - Date & Time Date: 10/23/17 (I have seen and examined the patient. I agree with the findings and plan of care as documented by Dr. Powell. Patient with cellulitis of lower extremities. 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 Clinda for now. Wound and blood cultures. Also with ESRD on dialysis. Issue with graft. Consult to nephro. Consult vascular if necessary. Monitor for acute changes.) Time: 06:22 Attending/Attestation - Attestation I have personally seen and examined this patient.: Yes I have fully participated in the care of the patient.: Yes I have reviewed all pertinent clinical information: Yes
[2017-10-22] MEDS ORDERED: Clindamycin 300 MG in Sodium Chloride 0.9% 50 ML IVPB SCH (07:15)
[2017-10-22] MEDS ORDERED: Clindamycin 600mg/50ml NS 600 MG/50 ML BAG IVPB SCH (08:30)
[2017-10-22] MEDS ORDERED: Nystatin 100,000 Units/gm Cream(15 gm) TOP SCH (10:00)
--- NOTE | 2017-10-22 10:33 | CP.PCM.CON ---
History of Present Illness - History of Present Illness History of Present Illness: CC: left leg pain and cellulitis HPI: Patient is a 51 y/o M with PMHx of ESRD on dialysis, cellulitis, chronic lymphedema, and morbid obesity presents today for right leg pain since Wednesday. Patient say the his leg feels like pins and needles with sharp stabbing pain. Nothing makes the pain better and touching the leg makes the pain worse. Patient has had cellulitis in the past and when he started feeling pain he took some leftover Clindamycin he had. Patient also takes Naproxen for pain. Patient came in today because pain was not subsiding. Patient normally gets dialysis on , Wednesday, but because of the holiday was switched to a , , Wed schedule. Wed patient was unable to get dialysis due to poor access. Patient was scheduled to go to the vein center today to try and re-obtain the access. Patient denies headache, blurry vision, shortness of breath, chest pain , abdominal pain, nausea, vomiting, constipation, diarrhea. PMD: Dr. Alegre PMHx: ESRD on dialysis, cellulitis, chronic lymphedema, and morbid obesity; HTN , DM 2, COPD Psurg: Left leg wound debridement 3 years ago, dialysis catheters, AVF left upper extremity Famhx: mother: from ovarian CA at 62 y/o, thyroid disease Social: Tobacco: 8-10 cigarettes per day for 18 years, alcohol: few drinks once every 6 months, drugs: marijuana, on weekends occasionally, last smoked a few days ago Patient with clotted AV access- will need thrombectomy then hemodialysis Claims increased pains in LEs- has chronic lymphedema and recurrent cellulitis Review of Systems - Constitutional Constitutional: Fatigue, Weight Gain, Weakness - EENT Eyes: absent: As Per HPI, Blind Spots, Blurred Vision, Change in Vision, Decreased Night Vision, Diplopia, Discharge, Dry Eye, Exophthalmos, Floaters, Irritation, Itchy Eyes, Loss of Peripheral Vision, Pain, Photophobia, Requires Corrective Lenses, Sees Flashes, Spots in Vision, Tunnel Vision, Other Visual Disturbances, Loss of Vision, Other Ears: absent: As Per HPI, Decreased Hearing, Ear Discharge, Ear Pain, Tinnitus, Abnormal Hearing, Disequilibrium, Dizziness, Other Nose/Mouth/Throat: absent: As Per HPI, Epistaxis, Nasal Congestion, Nasal Discharge, Nasal Obstruction, Nasal Trauma, Nose Pain, Post Nasal Drip, Sinus Pain, Sinus Pressure, Bleeding Gums, Change in Voice, Dental Pain, Dry Mouth, Dysphagia, Halitosis, Hoarsness, Lip Swelling, Mouth Lesions, Mouth Pain, Odynophagia, Sore Throat, Throat Swelling, Tongue Swelling, Facial Pain, Neck Pain, Neck Mass, Other - Cardiovascular Cardiovascular: Dyspnea on Exertion, Leg Edema - Respiratory Respiratory: Cough, Dyspnea on Exertion - Gastrointestinal Gastrointestinal: Bloating, Nausea - Genitourinary Genitourinary: As Per HPI - Musculoskeletal Musculoskeletal: Muscle Weakness, Myalgias - Integumentary Integumentary: Erythema, Rash - Neurological Neurological: absent: As Per HPI, Abnormal Gait, Abnormal Hearing, Abnormal Movements, Abnormal Speech, Behavioral Changes, Burning Sensations, Confusion, Convulsions, Disequilibrium, Dizziness, Numbness, Focal Weakness, Frequent Falls , Headaches, Lack of Coordination, Loss of Vision, Memory Loss, Paresthesias, Radicular Pain, Restless Legs, Sensory Deficit, Syncope, Tingling, Tremor, Vertigo, Weakness, Other Visual Disturbances, Other Past Patient History - Infectious Disease Hx of Infectious Diseases: None - Past Medical History & Family History Past Medical History?: Yes Past Family History: Reviewed and not pertinent - Past Social History Smoking Status: Heavy Smoker > 10 Cigarettes Daily Chewing Tobacco Use: No Cigar Use: No - CARDIAC Hx Hypertension: Yes Hx Peripheral Edema: Yes - PULMONARY Hx Bronchitis: Yes Hx Chronic Obstructive Pulmonary Disease (COPD): Yes - NEUROLOGICAL Hx Neurological Disorder: No - HEENT Hx HEENT Problems: No - RENAL Hx Chronic Kidney Disease: Yes - ENDOCRINE/METABOLIC Hx Endocrine Disorders: Yes Hx Diabetes Mellitus Type 2: Yes - HEMATOLOGICAL/ONCOLOGICAL Hx Anemia: Yes - INTEGUMENTARY Hx Dermatological Problems: Yes Hx Cellulitis: Yes (BILATERAL LEGS) - MUSCULOSKELETAL/RHEUMATOLOGICAL Hx Musculoskeletal Disorders: Yes Hx Falls: Yes - GASTROINTESTINAL Hx Gastrointestinal Disorders: Yes Hx Gastroesophageal Reflux: Yes - GENITOURINARY/GYNECOLOGICAL Hx Genitourinary Disorders: No - PSYCHIATRIC Hx Substance Use: No - SURGICAL HISTORY Hx Surgeries: Yes (Left arm AV Fistula) Hx Vascular Surgery: Yes (ACCESS FOR DIALYSIS) - ANESTHESIA Hx Anesthesia: Yes Hx Anesthesia Reactions: No Hx Malignant Hyperthermia: No Meds Allergies/Adverse Reactions: Allergies Allergy/AdvReac Type Severity Reaction Status Date / Time piperacillin AdvReac ITCHING, Verified 10/22/17 03:21 SHORTNESS OF BREATH PET DANDER Allergy Severe CONGESTION Uncoded 10/22/17 03:21 - Medications Medications: Current Medications Famotidine (Pepcid) 20 mg PO DAILY [facility] Heparin Sodium (Porcine) (Heparin) 5,000 units SC Q8 [facility] Clindamycin Phosphate (Cleocin In Normal Saline) 600 mg in 50 mls @ 100 mls/hr IVPB Q6H [facility] Nystatin (Nystop Topical Powder) 1 applic TOP BID [facility] Tramadol HCl (Ultram) 50 mg PO TID PRN PRN Reason: Pain, moderate (4-7) Physical Exam - Constitutional Appears: No Acute Distress, Chronically Ill - Head Exam Head Exam: ATRAUMATIC, NORMAL INSPECTION - Eye Exam Eye Exam: EOMI, Normal appearance - Neck Exam Neck exam: Positive for: Normal Inspection. Negative for: Tenderness - Respiratory Exam Respiratory Exam: Rhonchi, NORMAL BREATHING PATTERN - Cardiovascular Exam Cardiovascular Exam: REGULAR RHYTHM, +S1 - GI/Abdominal Exam GI & Abdominal Exam: Soft. absent: Tenderness - Extremities Exam Extremities exam: Positive for: calf tenderness, pedal edema - Neurological Exam Neurological exam: Alert, Oriented x3 - Skin Skin Exam: Vesicles, Warm Results - Vital Signs Recent Vital Signs: Last Vital Signs Temp 97.5 F L 10/22/17 09:24 Pulse 79 10/22/17 09:24 Resp 20 10/22/17 09:24 BP 128/66 10/22/17 09:24 Pulse Ox 94 L 10/22/17 09:24 - Labs Result Diagrams: 10/22/17 04:01 10/22/17 04:01 Labs: Laboratory Results - last 24 hr 10/22/17 10/22/17 10/22/17 04:01 04:01 04:01 WBC 25.0 H D RBC 4.29 L Hgb 10.4 L Hct 32.6 L MCV 76.0 L MCH 24.2 L MCHC 31.9 L RDW 19.4 H Plt Count 289 MPV 8.3 Neut % (Auto) 89.2 H Lymph % (Auto) 4.[address] [place] % (Auto) 5.2 Eos % (Auto) 1.0 Baso % (Auto) 0.2 Neut # 22.3 H Lymph # 1.1 [place] # 1.3 H Eos # 0.3 Baso # 0.1 Neutrophils % (Manual) 84 H Lymphocytes % (Manual) 9 L Monocytes % (Manual) 3 Eosinophils % (Manual) 4 Platelet Estimate Normal ESR 105 H PT 14.0 H INR 1.2 APTT 36 H Sodium 133 Potassium 4.4 Chloride 94 L Carbon Dioxide 26 Anion Gap 18 BUN 80 H Creatinine 4.7 H Est GFR ( Amer) 16 Est GFR (Non-Af Amer) 13 POC Glucose (mg/dL) Random Glucose 107 Calcium 8.7 Total Bilirubin 1.3 AST 29 ALT 29 Alkaline Phosphatase 118 NT-Pro-B Natriuret Pep 127 Total Protein 8.7 H Albumin 3.9 Globulin 4.8 H Albumin/Globulin Ratio 0.8 L Urine Color Urine Clarity Urine pH Ur Specific [place] Urine Protein Urine Glucose (UA) Urine Ketones Urine Blood Urine Nitrate Urine Bilirubin Urine Urobilinogen Ur Leukocyte Esterase Urine WBC (Auto) Urine RBC (Auto) Ur Squamous Epith Cells Urine Bacteria 10/22/17 10/22/17 04:41 06:54 WBC RBC Hgb Hct MCV MCH MCHC RDW Plt Count MPV Neut % (Auto) Lymph % (Auto) [place] % (Auto) Eos % (Auto) Baso % (Auto) Neut # Lymph # [place] # Eos # Baso # Neutrophils % (Manual) Lymphocytes % (Manual) Monocytes % (Manual) Eosinophils % (Manual) Platelet Estimate ESR PT INR APTT Sodium Potassium Chloride Carbon Dioxide Anion Gap BUN Creatinine Est GFR ( Amer) Est GFR (Non-Af Amer) POC Glucose (mg/dL) 86 Random Glucose Calcium Total Bilirubin AST ALT Alkaline Phosphatase NT-Pro-B Natriuret Pep Total Protein Albumin Globulin Albumin/Globulin Ratio Urine Color Yellow Urine Clarity Clear Urine pH 5.0 Ur Specific [place] 1.016 Urine Protein 2+ H Urine Glucose (UA) Normal Urine Ketones Negative Urine Blood 3+ H Urine Nitrate Negative Urine Bilirubin Negative Urine Urobilinogen 2.0 Ur Leukocyte Esterase Neg Urine WBC (Auto) 12 H Urine RBC (Auto) 284 H Ur Squamous Epith Cells 1 Urine Bacteria Rare Assessment & Plan (1) Cellulitis of right anterior lower leg Status: Acute (2) Hypertensive chronic kidney disease with stage 5 chronic kidney disease or end stage renal disease Status: Acute (3) Morbid obesity Status: Acute (4) Chronic acquired lymphedema Status: Acute (5) ESRD on hemodialysis Status: Chronic - Assessment and Plan (Free Text) Plan: thrombectomy of av access dialysis later treat cellulitis as per medicine
[2017-10-22] MEDS ORDERED: ceFAZolin IV 2 gm in Dextrose 0 GM/0 ML BAG IVPB ONE (10:52)
[2017-10-22] MEDS ORDERED: Lidocaine 1% Inj (20ml) ONE (10:53)
[2017-10-22] MEDS ORDERED: HEPARIN-NS 5,000 UNITS/500 ML 5,000 UNIT/500 ML BAG IV ONE (11:10)
[2017-10-22] MEDS ORDERED: Propofol 10 mg/ml Inj (20 ML) ONE (11:36)
[2017-10-22] MEDS ORDERED: Midazolam 2 MG/2 ML VIAL ONE (11:36)
--- NOTE | 2017-10-22 12:22 | PCM.SURG1 ---
Surgeon's Initial Post Op Note - Surgeon's Notes Surgeon: isaias Firer Diesel Locomotive: 0 Type of Anesthesia: IV Sedation Anesthesia Administered By: chad Pre-Operative Diagnosis: renal failure/clotted shunt Operative Findings: catheter placed via right jugular Post-Operative Diagnosis: same Operation Performed: permacath right jugular. with us guidance and micropuncture technique Specimen/Specimens Removed: 0 Estimated Blood Loss: EBL {In ML}: 5 Blood Products Given: N/A Drains Used: No Drains Post-Op Condition: Good Date of Surgery/Procedure: 10/22/17 Time of Surgery/Procedure: 12:22
[2017-10-22] MEDS ORDERED: HYDROmorphone 0.5 mg/0.5 ml ISec IVP PRN (12:33)
--- NOTE | 2017-10-22 13:25 | RAD ---
HISTORY: line placement COMPARISON: Comparison made with chest radiograph 09/03/2027 FINDINGS: Interval placement right IJ dialysis catheter with tips in the SVC/RA junction. LUNGS: Mild central pulmonary vascular congestion. There may also be some minor patchy alveolar-type infiltrates in the mid to lower lung flores as well. PLEURA: No significant pleural effusion identified, no pneumothorax apparent. CARDIOVASCULAR: Heart is enlarged. OSSEOUS STRUCTURES: No significant abnormalities. VISUALIZED UPPER ABDOMEN: Normal. OTHER FINDINGS: None. IMPRESSION: Interval placement right IJ dialysis catheter as above. No evidence of pneumothorax. Cardiomegaly. Mild central pulmonary vascular congestion. There may also be some minor patchy alveolar-type infiltrates in the mid to lower lung flores as well.
--- NOTE | 2017-10-22 13:45 | RAD ---
PROCEDURE: Intraoperative Fluoroscopy. HISTORY: PERMACATH INSERT FINDINGS: Fluoroscopic assistance was provided. . 14.3 seconds of fluoroscopy time utilized during this procedure. Radiation dose = 2.61 mGy
[2017-10-22] MEDS: Sodium Chloride 0.9% 1,000 ML IV SCH (14:56)
[2017-10-22] MEDS: Clindamycin 600mg/50ml NS 600 MG/50 ML BAG IVPB SCH (18:17)
--- NOTE | 2017-10-22 19:46 | OP ---
PROCEDURE DATE: 10/22/2017 PREOPERATIVE DIAGNOSES: Renal failure; hybrid shunt, left arm. POSTOPERATIVE DIAGNOSES: Renal failure; hybrid shunt, left arm. PROCEDURE CARRIED OUT: Placement of Perm-A-Cath, right jugular vein with C-arm fluoroscopy and ultrasound-guided puncture with micropuncture technique. SURGEON: Yoel Chiu Jr., MD. OPEN TENTER OPERATOR: None. ANESTHESIOLOGIST: Mr. Chip CRNA INDICATIONS: The patient is a middle-aged male with renal insufficiency. He is going to receive dialysis on Wednesday, emergency placement of Perm-A-Cath. OPERATING FINDINGS: Ultrasound was used to puncture the right jugular vein. Under fluoroscopic control, guidewire was advanced centrally after micropuncture technique. A sheath dilator was then passed over this with the appropriate wire exchange and the catheter was positioned with the tip in superior vena cava-right atrial junction. There was excellent flow as tested by full return, and the catheter was secured to the skin. Blood loss from the procedure was 5 mL. Operation carried out, Perm-A-Cath, right jugular vein with C-arm fluoroscopy and ultrasound-guided puncture. Ultrasound images of the neck shows the vein was only 11 mm in diameter with normal compressibility and no intraluminal thrombosis. Yoel Chiu Jr., MD
--- NOTE | 2017-10-22 21:34 | CP.PCM.PN ---
Subjective - Date & Time of Evaluation Date of Evaluation: 10/22/17 Time of Evaluation: 07:40 - Subjective Subjective: Medicine Note (PGY-1)---> Dr. Martino Patient was seen and examined at bedside. Patient reports that he is doing well. Patient denies chest pain, palpitations, SOB, fever, chills, abdominal pain but admits to nausea and vomiting. Objective - Vital Signs/Intake and Output Vital Signs (last 24 hours): Temp Pulse Resp BP Pulse Ox 98.2 F 72 18 122/63 98 10/22/17 19:15 10/22/17 20:00 10/22/17 20:30 10/22/17 20:00 10/22/17 20:30 Intake and Output: 10/22/17 10/23/17 18:59 06:59 Intake Total 390 Output Total 300 Balance 90 - Medications Medications: Current Medications Famotidine (Pepcid) 20 mg PO DAILY [facility] Last Admin: 10/22/17 11:48 Dose: Not Given Heparin Sodium (Porcine) (Heparin) 5,000 units SC Q8 [facility] Last Admin: 10/22/17 14:56 Dose: 5,000 units Sodium Chloride (Sodium Chloride 0.9%) 1,000 mls @ 50 mls/hr IV .Q20H [facility] Last Admin: 10/22/17 14:56 Dose: 50 mls/hr Clindamycin Phosphate (Cleocin In Normal Saline) 600 mg in 50 mls @ 100 mls/hr IVPB Q6H [facility] Last Admin: 10/22/17 18:17 Dose: 100 mls/hr Nystatin (Nystop Topical Powder) 1 applic TOP BID [facility] Last Admin: 10/22/17 18:16 Dose: 1 applic Pneumococcal Polyvalent Vaccine (Pneumovax 23 Vaccine) 0.5 ml IM .ONCE ONE Stop: 10/24/17 10:01 Tramadol HCl (Ultram) 50 mg PO TID PRN PRN Reason: Pain, moderate (4-7) Last Admin: 10/22/17 18:17 Dose: 50 mg - Labs Labs: 10/22/17 04:01 10/22/17 04:01 PT 14.0 SECONDS (9.7-12.2) H 10/22/17 04:01 INR 1.2 10/22/17 04:01 APTT 36 SECONDS (21-34) H 10/22/17 04:01 - Constitutional Appears: Well, No Acute Distress - Head Exam Head Exam: ATRAUMATIC - Eye Exam Eye Exam: EOMI - ENT Exam ENT Exam: Mucous Membranes Dry - Respiratory Exam Respiratory Exam: Clear to Ausculation Bilateral, NORMAL BREATHING PATTERN - Cardiovascular Exam Cardiovascular Exam: REGULAR RHYTHM, +S1, +S2 - GI/Abdominal Exam GI & Abdominal Exam: Soft, Normal Bowel Sounds - Extremities Exam Additional comments: Right leg warm to touch Chronic bilateral lymphedema - Neurological Exam Neurological Exam: Alert, Awake, Oriented x3 - Psychiatric Exam Psychiatric exam: Normal Affect - Skin Skin Exam: Normal Color Assessment and Plan (1) Cellulitis of right anterior lower leg Assessment & Plan: Medications: * Clindamycin 600mg q6h * Nystatin powder for skin folds * tramadol 50mg q8h prn for pain Status: Acute (2) ESRD (end stage renal disease) Assessment & Plan: Dr. Mota consulted- help appreciated * Management as per recommendation HD TTS, this week MWF (missed Wed due to lack of access) Vascular surgery Consult, Dr. Chiu---> * Right Internal jugular permacath insertion (10/22/17) renal diet Status: Acute (3) Prophylactic measure Assessment & Plan: GI: pepcid 20mg daily DVT: heparin 5000 q8h physical therapy eval Status: Acute
[2017-10-23] MEDS: Clindamycin 600mg/50ml NS 600 MG/50 ML BAG IVPB SCH ×4 (00:12→18:36)
[2017-10-23] MEDS ORDERED: HYDROmorphone 1 mg/ml ISec IVP ONE (02:30)
[2017-10-23 07:35] LABS: BASO % 0.2 % (0.0-2.0); EOS # 0.3 K/uL (0.0-0.7); EOS % 2.9 % (0.0-4.0); LYMPH # 0.9 K/uL (1.0-4.3); MEAN CELL VOLUME 76.2 fL (80.0-94.0); MEAN CORPUSCULAR HEMOGLOBIN 24.4 pg (27.0-31.0); MEAN PLATELET VOLUME 8.5 fL (7.2-11.7); MONO # 1.1 K/uL (0.0-0.8); MONO % 10.3 % (0.0-10.0); NRBC % 0.1 % (0.0-2.0); PLATELET COUNT 274 K/uL (130-400); RED CELL DISTRIBUTION WIDTH 19.4 % (11.5-14.5)
[2017-10-23 07:43] LABS: WHITE BLOOD COUNT 11.1 K/uL (4.8-10.8)
[2017-10-23 08:16] LABS: ALB/GLOB RATIO 0.8 (1.0-2.1); CALCIUM 8.4 mg/dl (8.6-10.4); MAGNESIUM 1.7 mg/dL (1.6-2.3); PHOSPHOROUS 6.1 mg/dL (2.5-4.5); POTASSIUM 4.3 mmol/L (3.6-5.2); TOTAL PROTEIN 8.2 g/dL (6.3-8.3)
--- NOTE | 2017-10-23 10:14 | CP.PCM.PN ---
Subjective - Date & Time of Evaluation Date of Evaluation: 10/23/17 Time of Evaluation: 08:00 - Subjective Subjective: Vascular Surgery- Dr. Chiu Patient S&E at bedside this AM. NAEO. RIJ permacath in place, dressing C/D/I. Pt received dialysis yesterday from catheter w/ no complications. Denies f/c cp/ sob n/v/d Objective - Vital Signs/Intake and Output Vital Signs (last 24 hours): Temp Pulse Resp BP Pulse Ox 98.2 F 72 20 113/70 97 10/23/17 07:00 10/23/17 07:00 10/23/17 07:00 10/23/17 07:00 10/23/17 07:00 Intake and Output: 10/23/17 10/23/17 06:59 18:59 Intake Total 1000 Output Total 350 Balance 650 - Medications Medications: Current Medications Famotidine (Pepcid) 20 mg PO DAILY [facility] Last Admin: 10/22/17 11:48 Dose: Not Given Heparin Sodium (Porcine) (Heparin) 5,000 units SC Q8 [facility] Last Admin: 10/23/17 06:54 Dose: 5,000 units Sodium Chloride (Sodium Chloride 0.9%) 1,000 mls @ 50 mls/hr IV .Q20H [facility] Last Admin: 10/22/17 14:56 Dose: 50 mls/hr Clindamycin Phosphate (Cleocin In Normal Saline) 600 mg in 50 mls @ 100 mls/hr IVPB Q6H [facility] Last Admin: 10/23/17 06:54 Dose: 100 mls/hr Nystatin (Nystop Topical Powder) 1 applic TOP BID [facility] Last Admin: 10/22/17 18:16 Dose: 1 applic Pneumococcal Polyvalent Vaccine (Pneumovax 23 Vaccine) 0.5 ml IM .ONCE ONE Stop: 10/24/17 10:01 Tramadol HCl (Ultram) 50 mg PO TID PRN PRN Reason: Pain, moderate (4-7) Last Admin: 10/22/17 18:17 Dose: 50 mg - Labs Labs: 10/23/17 07:09 10/23/17 07:09 PT 14.0 SECONDS (9.7-12.2) H 10/22/17 04:01 INR 1.2 10/22/17 04:01 APTT 36 SECONDS (21-34) H 10/22/17 04:01 - Constitutional Appears: Non-toxic, No Acute Distress - Head Exam Head Exam: ATRAUMATIC - Eye Exam Eye Exam: EOMI. absent: Scleral icterus - Cardiovascular Exam Cardiovascular Exam: +S1, +S2. absent: Bradycardia, Tachycardia - GI/Abdominal Exam GI & Abdominal Exam: Soft. absent: Distended, Firm, Guarding, Rigid, Tenderness - Extremities Exam Extremities Exam: Pedal Edema Additional comments: RIJ permcath in place - Neurological Exam Neurological Exam: Alert, Awake, Oriented x3 - Skin Skin Exam: Intact, Warm Assessment and Plan - Assessment and Plan (Free Text) Assessment: 51M clotted AVF, permacath placement POD#1 Plan: - catheter and dressing C/D/I - ok to use - no further surgical intervention at this time - further recs per Dr. Apple Pardo PGY1
[2017-10-23] MEDS: Sodium Chloride 0.9% 1,000 ML IV SCH (10:20)
--- NOTE | 2017-10-23 10:26 | CP.PCM.PN ---
Subjective - Date & Time of Evaluation Date of Evaluation: 10/23/17 Time of Evaluation: 10:23 - Subjective Subjective: in bed complaints of skin break down over heels no SOB had full dialysis treatment yesterday no SOB ROS- as per HPI, other than that 10 point ROS negative Objective - Vital Signs/Intake and Output Vital Signs (last 24 hours): Temp Pulse Resp BP Pulse Ox 98.2 F 72 20 113/70 97 10/23/17 07:00 10/23/17 07:00 10/23/17 07:00 10/23/17 07:00 10/23/17 07:00 Intake and Output: 10/23/17 10/23/17 06:59 18:59 Intake Total 1000 Output Total 350 Balance 650 - Medications Medications: Current Medications Famotidine (Pepcid) 20 mg PO DAILY [facility] Last Admin: 10/23/17 10:19 Dose: 20 mg Heparin Sodium (Porcine) (Heparin) 5,000 units SC Q8 [facility] Last Admin: 10/23/17 06:54 Dose: 5,000 units Sodium Chloride (Sodium Chloride 0.9%) 1,000 mls @ 50 mls/hr IV .Q20H [facility] Last Admin: 10/23/17 10:20 Dose: Not Given Clindamycin Phosphate (Cleocin In Normal Saline) 600 mg in 50 mls @ 100 mls/hr IVPB Q6H [facility] Last Admin: 10/23/17 06:54 Dose: 100 mls/hr Nystatin (Nystop Topical Powder) 1 applic TOP BID [facility] Last Admin: 10/23/17 10:19 Dose: 1 applic Pneumococcal Polyvalent Vaccine (Pneumovax 23 Vaccine) 0.5 ml IM .ONCE ONE Stop: 10/24/17 10:01 Tramadol HCl (Ultram) 50 mg PO TID PRN PRN Reason: Pain, moderate (4-7) Last Admin: 10/22/17 18:17 Dose: 50 mg - Labs Labs: 10/23/17 07:09 10/23/17 07:09 PT 14.0 SECONDS (9.7-12.2) H 10/22/17 04:01 INR 1.2 10/22/17 04:01 APTT 36 SECONDS (21-34) H 10/22/17 04:01 - Constitutional Appears: Well, Non-toxic - Head Exam Head Exam: ATRAUMATIC, NORMOCEPHALIC - Eye Exam Eye Exam: EOMI, PERRL - ENT Exam ENT Exam: Mucous Membranes Moist - Neck Exam Neck Exam: Full ROM - Respiratory Exam Respiratory Exam: Clear to Ausculation Bilateral. absent: Rhonchi, Wheezes - Cardiovascular Exam Cardiovascular Exam: REGULAR RHYTHM, +S1, +S2 - GI/Abdominal Exam GI & Abdominal Exam: Soft. absent: Tenderness Additional comments: obese - Extremities Exam Extremities Exam: Pedal Edema. absent: Tenderness - Neurological Exam Neurological Exam: Alert, Awake, Oriented x3 - Psychiatric Exam Psychiatric exam: Normal Affect, Normal Mood - Skin Skin Exam: Normal Color, Warm Assessment and Plan (1) Cellulitis of extremity Status: Acute (2) ESRD (end stage renal disease) Status: Acute (3) Lymphedema in adult patient Status: Acute (4) Morbid obesity Status: Acute (5) Thrombosis of dialysis shunt Status: Acute - Assessment and Plan (Free Text) Plan: s/p permacath placement HD today to keep him on his schedule fluid restriction needs access declotting
[2017-10-23 10:55] LABS: EOSINOPHIL 1 % (0-4); NEUTROPHIL 80 % (50-75); TOTAL CELLS COUNTED 100
--- NOTE | 2017-10-23 13:17 | CP.PCM.PN ---
<Destini Jin - Last Filed: 10/23/17 13:11> Subjective - Date & Time of Evaluation Date of Evaluation: 10/23/17 Time of Evaluation: 13:12 - Subjective Subjective: Medicine progress note for Dr. Martino Patient was seen and examined at bedside in no acute distress. Patient reports still having pain in his right ankle and behind the knee. Patient denies having chest pain, abdominal pain, nausea, vomiting, and fevers. Objective - Vital Signs/Intake and Output Vital Signs (last 24 hours): Temp Pulse Resp BP Pulse Ox 98.2 F 72 20 113/70 97 10/23/17 07:00 10/23/17 07:00 10/23/17 07:00 10/23/17 07:00 10/23/17 07:00 Intake and Output: 10/23/17 10/23/17 06:59 18:59 Intake Total 1000 Output Total 350 Balance 650 - Medications Medications: Current Medications Famotidine (Pepcid) 20 mg PO DAILY [facility] Last Admin: 10/23/17 10:19 Dose: 20 mg Heparin Sodium (Porcine) (Heparin) 5,000 units SC Q8 [facility] Last Admin: 10/23/17 06:54 Dose: 5,000 units Sodium Chloride (Sodium Chloride 0.9%) 1,000 mls @ 50 mls/hr IV .Q20H [facility] Last Admin: 10/23/17 10:20 Dose: Not Given Clindamycin Phosphate (Cleocin In Normal Saline) 600 mg in 50 mls @ 100 mls/hr IVPB Q6H [facility] Last Admin: 10/23/17 06:54 Dose: 100 mls/hr Nystatin (Nystop Topical Powder) 1 applic TOP BID [facility] Last Admin: 10/23/17 10:19 Dose: 1 applic Pneumococcal Polyvalent Vaccine (Pneumovax 23 Vaccine) 0.5 ml IM .ONCE ONE Stop: 10/24/17 10:01 Tramadol HCl (Ultram) 50 mg PO TID PRN PRN Reason: Pain, moderate (4-7) Last Admin: 10/22/17 18:17 Dose: 50 mg - Labs Labs: 10/23/17 07:09 10/23/17 07:09 PT 14.0 SECONDS (9.7-12.2) H 10/22/17 04:01 INR 1.2 10/22/17 04:01 APTT 36 SECONDS (21-34) H 10/22/17 04:01 - Constitutional Appears: No Acute Distress - Head Exam Head Exam: ATRAUMATIC, NORMAL INSPECTION - Eye Exam Eye Exam: EOMI, Normal appearance - ENT Exam ENT Exam: Mucous Membranes Moist - Respiratory Exam Respiratory Exam: Clear to Ausculation Bilateral, NORMAL BREATHING PATTERN. absent: Rales, Rhonchi, Wheezes, Respiratory Distress - Cardiovascular Exam Cardiovascular Exam: REGULAR RHYTHM, +S1, +S2 - GI/Abdominal Exam GI & Abdominal Exam: Soft, Normal Bowel Sounds. absent: Firm, Tenderness, Mass - Extremities Exam Additional comments: Patient has chronic lymphedema bilaterally; right ankle slightly warmer than left. - Neurological Exam Neurological Exam: Alert, Awake, Oriented x3 - Psychiatric Exam Psychiatric exam: Normal Affect, Normal Mood - Skin Skin Exam: Dry, Normal Color, Warm Assessment and Plan - Assessment and Plan (Free Text) Plan: (1) Cellulitis of right anterior lower leg Assessment & Plan: Continue Medications: * Clindamycin 600mg q6h * Nystatin powder for skin folds * Tramadol 50mg q8h prn for pain Leukocytosis is improving-->11.1 (WBC @admission 25) Status: Acute (2) ESRD (end stage renal disease) Assessment & Plan: Dr. Mota consulted- help appreciated * Management as per recommendation HD TTS, this week MWF (missed Wed due to lack of access) * Patient dialyzed on 10/22/17 * Patient scheduled for dialysis again today, 10/23/17 Vascular surgery Consult, Dr. Chiu---> * Right Internal jugular permacath insertion (10/22/17) renal diet Status: Acute (3) Constipation Assessment & Plan: Colace 100mg PO daily (4) Prophylactic measure Assessment & Plan: GI: pepcid 20mg daily DVT: heparin 5000 q8h physical therapy eval <Carrington Martino - Last Filed: 10/23/17 17:42> Objective - Vital Signs/Intake and Output Vital Signs (last 24 hours): Temp Pulse Resp BP Pulse Ox 97.6 F 70 20 117/63 95 10/23/17 16:55 10/23/17 16:55 10/23/17 16:55 10/23/17 16:55 10/23/17 14:23 Intake and Output: 10/23/17 10/23/17 06:59 18:59 Intake Total 1000 Output Total 350 Balance 650 - Medications Medications: Current Medications Docusate Sodium (Colace) 100 mg PO DAILY [facility] Last Admin: 10/23/17 13:40 Dose: 100 mg Famotidine (Pepcid) 20 mg PO DAILY [facility] Last Admin: 10/23/17 10:19 Dose: 20 mg Heparin Sodium (Porcine) (Heparin) 5,000 units SC Q8 [facility] Last Admin: 10/23/17 13:56 Dose: 5,000 units Heparin Sodium (Porcine) (Heparin) 3,700 units IVP TTS [facility] Last Admin: 10/23/17 16:15 Dose: 3,700 units Sodium Chloride (Sodium Chloride 0.9%) 1,000 mls @ 50 mls/hr IV .Q20H [facility] Last Admin: 10/23/17 10:20 Dose: Not Given Clindamycin Phosphate (Cleocin In Normal Saline) 600 mg in 50 mls @ 100 mls/hr IVPB Q6H [facility] Last Admin: 10/23/17 13:11 Dose: Not Given Nystatin (Nystop Topical Powder) 1 applic TOP BID [facility] Last Admin: 10/23/17 10:19 Dose: 1 applic Pneumococcal Polyvalent Vaccine (Pneumovax 23 Vaccine) 0.5 ml IM .ONCE ONE Stop: 10/24/17 10:01 Tramadol HCl (Ultram) 50 mg PO TID PRN PRN Reason: Pain, moderate (4-7) Last Admin: 10/23/17 13:36 Dose: 50 mg - Labs Labs: 10/23/17 07:09 10/23/17 07:09 PT 14.0 SECONDS (9.7-12.2) H 10/22/17 04:01 INR 1.2 10/22/17 04:01 APTT 36 SECONDS (21-34) H 10/22/17 04:01 Attending/Attestation - Attestation I have personally seen and examined this patient.: Yes I have fully participated in the care of the patient.: Yes I have reviewed all pertinent clinical information, including history, physical exam and plan: Yes Notes (Text): Patient was seen and examined,Has right ankle and behind the knee pain.Bilateral chronic lymphedema. no fever,Leukocytosis is improving,cultures negative ,seen by renal,need access declotting I agree with the resident's documentation of the assessment and the plan continue antibiotics ,follow cultures,PT evaluation
[2017-10-23 17:08] VITALS: RESP 20
[2017-10-23] MEDS: Ammonium Lactate 12% Lotion (225 g) EXT SCH (21:07)
[2017-10-24] MEDS: Clindamycin 600mg/50ml NS 600 MG/50 ML BAG IVPB SCH ×4 (00:02→17:46)
[2017-10-24] MEDS: Sodium Chloride 0.9% 1,000 ML IV SCH ×2 (00:02→05:00)
[2017-10-24 09:09] LABS: BASO % 0.6 % (0.0-2.0); EOS # 0.4 K/uL (0.0-0.7); EOS % 5.2 % (0.0-4.0); HEMATOCRIT 31.2 % (35.0-51.0); LYMPH % 12.2 % (20.0-40.0); MEAN CELL VOLUME 76.7 fL (80.0-94.0); MEAN CORPUSCULAR HEMOGLOBIN 24.8 pg (27.0-31.0); MEAN CORPUSCULAR HGB CONC 32.3 g/dL (33.0-37.0); MEAN PLATELET VOLUME 8.2 fL (7.2-11.7); MONO # 0.9 K/uL (0.0-0.8); MONO % 11.7 % (0.0-10.0); NRBC % 0.1 % (0.0-2.0); RED CELL DISTRIBUTION WIDTH 19.5 % (11.5-14.5); WHITE BLOOD COUNT 7.8 K/uL (4.8-10.8)
[2017-10-24 09:33] LABS: ALB/GLOB RATIO 0.8 (1.0-2.1); BILIRUBIN,TOTAL 0.8 mg/dL (0.2-1.3); CALCIUM 8.6 mg/dl (8.6-10.4); MAGNESIUM 1.8 mg/dL (1.6-2.3); PHOSPHOROUS 6.5 mg/dL (2.5-4.5); POTASSIUM 4.1 mmol/L (3.6-5.2); TOTAL PROTEIN 8.4 g/dL (6.3-8.3)
[2017-10-24] MEDS ORDERED: Pneumococcal 23-Valent Vaccine IM ONE (10:00)
[2017-10-24] MEDS: Ammonium Lactate 12% Lotion (225 g) EXT SCH ×2 (10:22→17:47)
--- NOTE | 2017-10-24 15:54 | CP.PCM.PN ---
Subjective - Date & Time of Evaluation Date of Evaluation: 10/24/17 Time of Evaluation: 13:00 - Subjective Subjective: Seen and examined,lying on comfortable,Has right ankle pain pain and cellulitis, behind the knee cellulitis is better His cellulites is improving.WBC is down. clogged left arm dialysis access.Right chest permacath placement Needs declotting left arm access Objective - Vital Signs/Intake and Output Vital Signs (last 24 hours): Temp Pulse Resp BP Pulse Ox 98.0 F 66 20 131/78 97 10/24/17 10:16 10/24/17 10:16 10/24/17 10:16 10/24/17 10:16 10/24/17 10:16 Intake and Output: 10/24/17 10/24/17 06:59 18:59 Intake Total 1240 Balance 1240 - Medications Medications: Current Medications Docusate Sodium (Colace) 100 mg PO DAILY [facility] Last Admin: 10/24/17 10:22 Dose: 100 mg Famotidine (Pepcid) 20 mg PO DAILY [facility] Last Admin: 10/24/17 10:22 Dose: 20 mg Heparin Sodium (Porcine) (Heparin) 5,000 units SC Q8 [facility] Last Admin: 10/24/17 13:11 Dose: 5,000 units Heparin Sodium (Porcine) (Heparin) 3,700 units IVP TTS [facility] Last Admin: 10/23/17 16:15 Dose: 3,700 units Sodium Chloride (Sodium Chloride 0.9%) 1,000 mls @ 50 mls/hr IV .Q20H [facility] Last Admin: 10/24/17 05:00 Dose: Not Given Clindamycin Phosphate (Cleocin In Normal Saline) 600 mg in 50 mls @ 100 mls/hr IVPB Q6H [facility] Last Admin: 10/24/17 11:15 Dose: 100 mls/hr Lactic Acid (Lac-Hydrin 12% Lotion (225 G)) 0 gm EXT BID [facility] Last Admin: 10/24/17 10:22 Dose: 1 applic Nystatin (Nystop Topical Powder) 1 applic TOP BID [facility] Last Admin: 10/24/17 10:22 Dose: 1 applic Tramadol HCl (Ultram) 50 mg PO TID PRN PRN Reason: Pain, moderate (4-7) Last Admin: 10/24/17 13:11 Dose: 50 mg - Labs Labs: 10/24/17 08:49 10/24/17 08:49 PT 14.0 SECONDS (9.7-12.2) H 10/22/17 04:01 INR 1.2 10/22/17 04:01 APTT 36 SECONDS (21-34) H 10/22/17 04:01 - Constitutional Appears: Non-toxic - Head Exam Head Exam: ATRAUMATIC - Eye Exam Eye Exam: Normal appearance - ENT Exam ENT Exam: Mucous Membranes Moist - Neck Exam Neck Exam: Full ROM - Respiratory Exam Respiratory Exam: NORMAL BREATHING PATTERN - Cardiovascular Exam Cardiovascular Exam: REGULAR RHYTHM - GI/Abdominal Exam GI & Abdominal Exam: Soft, Normal Bowel Sounds - Extremities Exam Extremities Exam: absent: Full ROM (Lymphedema and cellulitis) - Neurological Exam Neurological Exam: Awake, Oriented x3 - Psychiatric Exam Psychiatric exam: Normal Mood - Skin Skin Exam: Dry Assessment and Plan - Assessment and Plan (Free Text) Plan: 1.Cellulitis and right ankle pain Continue clindamycin, Leukocytosis is improved,no fever PT evaluation for ambulation Status: Acute 2.Mobid obesity and lymphedema PT evaluation 3.ESRD on HD-missed dialysis due to clogged access clogged left arm access follow nephrology-need declogging 4.constipation on colace 5.Prophylactic measures pepcid andheparin
[2017-10-25] MEDS: Clindamycin 600mg/50ml NS 600 MG/50 ML BAG IVPB SCH ×3 (00:04→11:10)
[2017-10-25] MEDS: Sodium Chloride 0.9% 1,000 ML IV SCH (00:04)
[2017-10-25 04:08] VITALS: O2SAT 97
[2017-10-25 07:18] LABS: BASO # 0.1 K/uL (0.0-0.2); BASO % 0.9 % (0.0-2.0); EOS # 0.4 K/uL (0.0-0.7); EOS % 5.7 % (0.0-4.0); HEMATOCRIT 31.9 % (35.0-51.0); MEAN CELL VOLUME 76.9 fL (80.0-94.0); MEAN CORPUSCULAR HEMOGLOBIN 24.9 pg (27.0-31.0); MEAN CORPUSCULAR HGB CONC 32.3 g/dL (33.0-37.0); MONO % 14.4 % (0.0-10.0); RED CELL DISTRIBUTION WIDTH 18.8 % (11.5-14.5); WHITE BLOOD COUNT 7.3 K/uL (4.8-10.8)
[2017-10-25 08:44] LABS: ALB/GLOB RATIO 0.8 (1.0-2.1); BILIRUBIN,TOTAL 0.7 mg/dL (0.2-1.3); CALCIUM 8.6 mg/dl (8.6-10.4); MAGNESIUM 1.7 mg/dL (1.6-2.3); PHOSPHOROUS 6.5 mg/dL (2.5-4.5); POTASSIUM 4.7 mmol/L (3.6-5.2); TOTAL PROTEIN 8.2 g/dL (6.3-8.3)
[2017-10-25 09:44] VITALS: BP 121/75; PULSE 63; TEMP 98.1
[2017-10-25] MEDS ORDERED: Pneumococcal 23-Valent Vaccine IM ONE (10:00)
[2017-10-25] MEDS: Ammonium Lactate 12% Lotion (225 g) EXT SCH (10:43)
--- NOTE | 2017-10-25 10:58 | CP.PCM.DIS ---
Provider - Provider Date of Admission: 10/22/17 05:18 Attending physician: Ti Quinn MD Time Spent in preparation of Discharge (in minutes): 35 Diagnosis - Discharge Diagnosis (1) Cellulitis of right anterior lower leg Status: Acute (2) ESRD (end stage renal disease) Status: Acute (3) Prophylactic measure Status: Acute Hospital Course - Lab Results Lab Results: Micro Results 10/22/17 04:00 Blood Blood Culture - Preliminary NO GROWTH AFTER 3 DAYS 10/22/17 03:30 Blood Blood Culture - Preliminary NO GROWTH AFTER 3 DAYS Most Recent Lab Values WBC 7.3 K/uL (4.8-10.8) 10/25/17 07:04 RBC 4.14 Mil/uL (4.40-5.90) L 10/25/17 07:04 Hgb 10.3 g/dL (12.0-18.0) L 10/25/17 07:04 Hct 31.9 % (35.0-51.0) L 10/25/17 07:04 MCV 76.9 fL (80.0-94.0) L 10/25/17 07:04 MCH 24.9 pg (27.0-31.0) L 10/25/17 07:04 MCHC 32.3 g/dL (33.0-37.0) L 10/25/17 07:04 RDW 18.8 % (11.5-14.5) H 10/25/17 07:04 Plt Count 276 K/uL (130-400) 10/25/17 07:04 MPV 8.0 fL (7.2-11.7) 10/25/17 07:04 Neut % (Auto) 65.0 % (50.0-75.0) 10/25/17 07:04 Lymph % (Auto) 14.0 % (20.0-40.0) L 10/25/17 07:04 [place] % (Auto) 14.4 % (0.0-10.0) H 10/25/17 07:04 Eos % (Auto) 5.7 % (0.0-4.0) H 10/25/17 07:04 Baso % (Auto) 0.9 % (0.0-2.0) 10/25/17 07:04 Neut # 4.7 K/uL (1.8-7.0) 10/25/17 07:04 Lymph # 1.0 K/uL (1.0-4.3) 10/25/17 07:04 [place] # 1.0 K/uL (0.0-0.8) H 10/25/17 07:04 Eos # 0.4 K/uL (0.0-0.7) 10/25/17 07:04 Baso # 0.1 K/uL (0.0-0.2) 10/25/17 07:04 Neutrophils % (Manual) 80 % (50-75) H 10/23/17 07:09 Lymphocytes % (Manual) 9 % (20-40) L 10/23/17 07:09 Monocytes % (Manual) 10 % (0-10) 10/23/17 07:09 Eosinophils % (Manual) 1 % (0-4) 10/23/17 07:09 Toxic Granulation Present 10/23/17 07:09 Platelet Estimate Normal (NORMAL) 10/23/17 07:09 Polychromasia Slight 10/23/17 07:09 Hypochromasia (manual) Slight 10/23/17 07:09 Anisocytosis (manual) Slight 10/23/17 07:09 Microcytosis (manual) Slight 10/23/17 07:09 ESR 105 mm/hr (0-15) H 10/22/17 04:01 PT 14.0 SECONDS (9.7-12.2) H 10/22/17 04:01 INR 1.2 10/22/17 04:01 APTT 36 SECONDS (21-34) H 10/22/17 04:01 Sodium 136 mmol/L (132-148) 10/25/17 07:04 Potassium 4.7 mmol/L (3.6-5.2) 10/25/17 07:04 Chloride 99 mmol/L (98-107) 10/25/17 07:04 Carbon Dioxide 28 mmol/L (22-30) 10/25/17 07:04 Anion Gap 14 (10-20) 10/25/17 07:04 BUN 52 mg/dL (9-20) H 10/25/17 07:04 Creatinine 3.6 mg/dL (0.8-1.5) H 10/25/17 07:04 Est GFR ( Amer) 22 10/25/17 07:04 Est GFR (Non-Af Amer) 18 10/25/17 07:04 POC Glucose (mg/dL) 88 mg/dL (65-110) 10/25/17 06:58 Random Glucose 87 mg/dL (75-110) 10/25/17 07:04 Calcium 8.6 mg/dl (8.6-10.4) 10/25/17 07:04 Phosphorus 6.5 mg/dL (2.5-4.5) H 10/25/17 07:04 Magnesium 1.7 mg/dL (1.6-2.3) 10/25/17 07:04 Total Bilirubin 0.7 mg/dL (0.2-1.3) 10/25/17 07:04 AST 18 U/L (17-59) 10/25/17 07:04 ALT 22 U/L (21-72) 10/25/17 07:04 Alkaline Phosphatase 104 U/L (38-126) 10/25/17 07:04 NT-Pro-B Natriuret Pep 127 pg/mL (0-450) 10/22/17 04:01 Total Protein 8.2 g/dL (6.3-8.3) 10/25/17 07:04 Albumin 3.7 g/dL (3.5-5.0) 10/25/17 07:04 Globulin 4.5 gm/dL (2.2-3.9) H 10/25/17 07:04 Albumin/Globulin Ratio 0.8 (1.0-2.1) L 10/25/17 07:04 Urine Color Yellow (YELLOW) 10/22/17 04:41 Urine Clarity Clear (Clear) 10/22/17 04:41 Urine pH 5.0 (5.0-8.0) 10/22/17 04:41 Ur Specific [place] 1.016 (1.003-1.030) 10/22/17 04:41 Urine Protein 2+ mg/dL (NEGATIVE) H 10/22/17 04:41 Urine Glucose (UA) Normal mg/dL (Normal) 10/22/17 04:41 Urine Ketones Negative mg/dL (NEGATIVE) 10/22/17 04:41 Urine Blood 3+ (NEGATIVE) H 10/22/17 04:41 Urine Nitrate Negative (NEGATIVE) 10/22/17 04:41 Urine Bilirubin Negative (NEGATIVE) 10/22/17 04:41 Urine Urobilinogen 2.0 mg/dL (0.2-1.0) 10/22/17 04:41 Ur Leukocyte Esterase Neg Alisha/uL (Negative) 10/22/17 04:41 Urine WBC (Auto) 12 /hpf (0-5) H 10/22/17 04:41 Urine RBC (Auto) 284 /hpf (0-3) H 10/22/17 04:41 Ur Squamous Epith Cells 1 /hpf (0-5) 10/22/17 04:41 Urine Bacteria Rare (<OCC) 10/22/17 04:41 - Hospital Course Hospital Course: HPI ( As per admission): Patient is a 51 y/o M with PMHx of ESRD on dialysis, cellulitis, chronic lymphedema, and morbid obesity presents today for right leg pain since Wednesday. Patient say the his leg feels like pins and needles with sharp stabbing pain. Nothing makes the pain better and touching the leg makes the pain worse. Patient has had cellulitis in the past and when he started feeling pain he took some leftover Clindamycin he had. Patient also takes Naproxen for pain. Patient came in today because pain was not subsiding. Patient normally gets dialysis on , Wednesday, but because of the holiday was switched to a , , Wed schedule. Wed patient was unable to get dialysis due to poor access. Patient was scheduled to go to the vein center today to try and re-obtain the access. Patient denies headache, blurry vision, shortness of breath, chest pain , abdominal pain, nausea, vomiting, constipation, diarrhea. Hospital course: Patient was admitted under the consideration of RLE cellulitis. Infectious disease consult was placed to Dr. Boucher, who managed the patient medically on clindamycin. [employer] Worker, Dr. Mota due patient's PMHx of ESRD. In addition, vascular surgery consult was placed to Dr. Ferrer for HD vascular access, who recommended a perma cath. Patient received a right IJ perma cath on 10/22/17 and was dialyzed thereafter. Patient did well on clindamycin and WBC decreased significantly. Patient was cleared by his medical team upon discharge. Patient was discharged with clindamycin 300mg TID for 4 days and with instructions to follow up with the vein clinic for declotting of his left arm HD graft. This is a brief summary of events. For a complete course, please refer to medical records. Discharge Exam - Head Exam Head Exam: ATRAUMATIC - Eye Exam Eye Exam: EOMI - Respiratory Exam Respiratory Exam: Clear to PA & Lateral, NORMAL BREATHING PATTERN - Cardiovascular Exam Cardiovascular Exam: REGULAR RHYTHM, +S1, +S2 - GI/Abdominal Exam GI & Abdominal Exam: Normal Bowel Sounds, Soft - Extremities Exam Extremities exam: pedal edema Additional comments: Chronic bilateral lymphedema - Neurological Exam Neurological exam: Alert, Oriented x3 - Psychiatric Exam Psychiatric exam: Anxious - Skin Skin Exam: Normal Color Discharge Plan - Discharge Medications Prescriptions: Clindamycin [Cleocin] 300 mg PO TID 4 Days #12 cap Saccharomyces Boulardi [Florastor] 250 mg PO BID 4 Days #10 cap - Follow Up Plan Condition: FAIR Disposition: HOME/ ROUTINE Instructions: Clindamycin (By mouth), Probiotic (By mouth), Cellulitis (GEN), Dialysis Diet (GEN), Leukocytosis (GEN), Perma-cath Placement (GEN) Additional Instructions: Please discharge patient home as per Dr. Ac Please continue the new medications: 1. Clindamycin 300mg PO TID for 4 days ( 12 tablets dispensed) - Please take with food and yogurt 2. Please start florastor 250mg PO BID ( 10 tablets dispensed). 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
--- NOTE | 2017-10-25 12:48 | CP.PCM.PN ---
Subjective - Date & Time of Evaluation Date of Evaluation: 10/25/17 Time of Evaluation: 12:45 - Subjective Subjective: s/p dialysis 10/23- UF 2500ml less pains LEs likely discharge soon- needs follow up at center for thrombectomy outpt dialysis arranged for 10/26 Objective - Vital Signs/Intake and Output Vital Signs (last 24 hours): Temp Pulse Resp BP Pulse Ox 98.1 F 63 20 121/75 97 10/25/17 09:41 10/25/17 09:41 10/25/17 09:41 10/25/17 09:41 10/25/17 09:41 Intake and Output: 10/25/17 10/25/17 06:59 18:59 Intake Total 1480 Output Total 200 Balance 1280 - Medications Medications: Current Medications Docusate Sodium (Colace) 100 mg PO DAILY [facility] Last Admin: 10/25/17 10:43 Dose: 100 mg Famotidine (Pepcid) 20 mg PO DAILY [facility] Last Admin: 10/25/17 10:43 Dose: 20 mg Heparin Sodium (Porcine) (Heparin) 5,000 units SC Q8 [facility] Last Admin: 10/25/17 05:45 Dose: 5,000 units Heparin Sodium (Porcine) (Heparin) 3,700 units IVP TTS [facility] Last Admin: 10/23/17 16:15 Dose: 3,700 units Sodium Chloride (Sodium Chloride 0.9%) 1,000 mls @ 50 mls/hr IV .Q20H [facility] Last Admin: 10/25/17 00:04 Dose: 50 mls/hr Clindamycin Phosphate (Cleocin In Normal Saline) 600 mg in 50 mls @ 100 mls/hr IVPB Q6H [facility] Last Admin: 10/25/17 11:10 Dose: 100 mls/hr Lactic Acid (Lac-Hydrin 12% Lotion (225 G)) 0 gm EXT BID [facility] Last Admin: 10/25/17 10:43 Dose: 1 applic Nystatin (Nystop Topical Powder) 1 applic TOP BID [facility] Last Admin: 10/25/17 10:43 Dose: 1 applic Tramadol HCl (Ultram) 50 mg PO TID PRN PRN Reason: Pain, moderate (4-7) Last Admin: 10/25/17 04:41 Dose: 50 mg - Labs Labs: 10/25/17 07:04 10/25/17 07:04 PT 14.0 SECONDS (9.7-12.2) H 10/22/17 04:01 INR 1.2 10/22/17 04:01 APTT 36 SECONDS (21-34) H 10/22/17 04:01 - Constitutional Appears: No Acute Distress, Chronically Ill - Head Exam Head Exam: ATRAUMATIC, NORMAL INSPECTION - Eye Exam Eye Exam: EOMI, Normal appearance - Neck Exam Neck Exam: Normal Inspection. absent: Tenderness - Respiratory Exam Respiratory Exam: Clear to Ausculation Bilateral, NORMAL BREATHING PATTERN - Cardiovascular Exam Cardiovascular Exam: REGULAR RHYTHM, +S1 - GI/Abdominal Exam GI & Abdominal Exam: Soft. absent: Tenderness - Extremities Exam Extremities Exam: Pedal Edema, Tenderness - Neurological Exam Neurological Exam: Alert, CN II-XII Intact - Skin Skin Exam: Erythema, Warm Assessment and Plan (1) Cellulitis of right anterior lower leg Status: Acute (2) Hypertensive chronic kidney disease with stage 5 chronic kidney disease or end stage renal disease Status: Acute (3) Morbid obesity Status: Acute (4) Chronic acquired lymphedema Status: Acute (5) ESRD on hemodialysis Status: Chronic - Assessment and Plan (Free Text) Plan: discharge soon outpt dialysis outpt thrombectomy
== END 2017-10-25 14:30 | disposition home or self-care (01) | DRG 602 ==
LOC: C.ER 03:05 → C.9E 05:18 → C.6T 06:11
PROVIDERS: ADMIT Hospitalist; ATTEND Hospitalist
PROC: B548ZZA Ultrasonography of Superior Vena Cava, Guidance (ICD-10-PCS; 2017-10-22)
PROC: 02HV33Z Insertion of Infusion Device into Superior Vena Cava, Percutaneous Approach (ICD-10-PCS; principal; 2017-10-22 12:15)
PROC: 5A1D70Z Performance of Urinary Filtration, Intermittent, Less than 6 Hours Per Day (ICD-10-PCS; 2017-10-23)
DX: L03.115 Cellulitis of right lower limb (principal); N18.6 End stage renal disease; E11.22 Type 2 diabetes mellitus with diabetic chronic kidney disease; I12.0 Hypertensive chronic kidney disease with stage 5 chronic kidney disease or end stage renal disease; T82.818A Embolism due to vascular prosthetic devices, implants and grafts, initial encounter; E66.01 Morbid (severe) obesity due to excess calories; Z80.41 Family history of malignant neoplasm of ovary; Z87.891 Personal history of nicotine dependence; D64.9 Anemia, unspecified; G89.29 Other chronic pain; J44.9 Chronic obstructive pulmonary disease, unspecified; K21.9 Gastro-esophageal reflux disease without esophagitis; Y83.2 Surgical operation with anastomosis, bypass or graft as the cause of abnormal reaction of the patient, or of later complication, without mention of misadventure at the time of the procedure

== ENCOUNTER 2017-10-26 16:03 | Emergency (ER) | payer MEDICARE ==
[2017-10-26 16:04] VITALS: BMI 55.7
--- NOTE | 2017-10-26 17:23 | C.PDOC ---
History Of Present Illness 52 y/o male, PMHx of ESRD, due for hemodialysis tomorrow, notes he had declotting of left arm AV fistula today in [place], [place]. Pt states upon arrival home, he noticed the dressing was saturated with blood, prompting ER visit. Denies chest pain, SOB, nausea, vomiting, lightheadedness, or other associated symptoms. Time Seen by Provider: 10/26/17 16:32 Chief Complaint (Nursing): Abnormal Skin Integrity History Per: Patient History/Exam Limitations: no limitations Onset/Duration Of Symptoms: Days Current Symptoms Are (Timing): Still Present Location Of Injury: Left: Arm Quality Of Symptoms: Draining. denies: Painful Recent travel outside of the [place]: No Past Medical History Reviewed: Historical Data, Nursing Documentation, Vital Signs - Medical History PMH: Anemia, Bronchitis, COPD, Diabetes, HTN, Peripheral Edema, End Stage Renal Disease, Chronic Kidney Disease, Chronic Pain - [facility] Procedures (09/03/17) DIALYSIS ARTERIOVENOSTOM (05/07/14) DILATION OF LEFT BRACHIAL VEIN, PERCUTANEOUS APPROACH (08/04/16) DRESSING OF WOUND NEC (05/29/14) EXTIRPATION OF MATTER FROM L BRACH ART, PERC APPROACH (08/04/16) EXTIRPATION OF MATTER FROM LEFT BRACHIAL VEIN, PERC APPROACH (08/04/16) HEMODIALYSIS (05/29/14) OTHER FASCIECTOMY (05/29/14) PACKED CELL TRANSFUSION (05/29/14) PERCUTAN NEEDLE BIOPSY OF KIDNEY (01/30/14) PERFORMANCE OF URINARY FILTRATION, MULTIPLE (08/04/17) VENOUS CATHETERIZATION FOR RENAL DIALYSIS (01/18/14) VENOUS CATHETERIZATION NEC (09/22/13) Family History: States: Unknown Family Hx - Social History Hx Tobacco Use: No Hx Alcohol Use: Yes (Occasionally) Hx Substance Use: No - Immunization History Hx Tetanus Toxoid Vaccination: Yes (w/in 5 years) Hx Influenza Vaccination: Yes Hx Pneumococcal Vaccination: No Review Of Systems Except As Marked, All Systems Reviewed And Found Negative. Constitutional: Negative for: Fever, Chills Cardiovascular: Negative for: Chest Pain, Palpitations Respiratory: Negative for: Shortness of Breath, Wheezing Skin: Positive for: Other (bleeding from L arm AV fistula). Negative for: Rash Neurological: Negative for: Weakness, Numbness Physical Exam - Physical Exam Appears: Non-toxic, No Acute Distress Skin: Normal Color, Warm, Dry Head: Atraumatic, Normacephalic Chest: Symmetrical, Other (catheter R anterior chest wall) Cardiovascular: Rhythm Regular Respiratory: Normal Breath Sounds, No Rales, No Rhonchi, No Wheezing Gastrointestinal/Abdominal: Soft, No Tenderness Back: Normal Inspection Extremity: Normal ROM, Capillary Refill (< 2 sec.), Other (L AV fistula dressing removed, evaluated; no bleeding present) Medical Decision Making Medical Decision Making: No active drainage from L AV fistula. On re-eval, pt in no acute distress, resting comfortably. Will discharge pt home , f/u with PMD. Disposition Counseled Patient/Family Regarding: Diagnosis, Need For Followup - Disposition Disposition: HOME/ ROUTINE Disposition Time: 17:28 Condition: STABLE Additional Instructions: follow up with your doctor in 2 days call to make an appointment take medications as prescribed return to hospital if symptoms worsens or progress Instructions: End Stage Kidney Disease (ED), Perma-cath Placement (GEN) Forms: [facility] (Citizen Of [place]), General Discharge Instructions - Clinical Impression Clinical Impression: ESRD (end stage renal disease), AV fistula occlusion - Scribe Statement The provider has reviewed the documentation as recorded by the Scribe SM All medical record entries made by the Scribe were at my direction and personally dictated by me. I have reviewed the chart and agree that the record accurately reflects my personal performance of the history, physical exam, medical decision making, and the department course for this patient. I have also personally directed, reviewed, and agree with the discharge instructions and disposition.
[2017-10-26 17:30] VITALS: O2SAT 98
[2017-10-26 21:01] VITALS: BP 130/70; PULSE 80; RESP 16; TEMP 98
== END 2017-10-26 21:01 | disposition home or self-care (01) ==
LOC: C.ER 16:03
DX: T82.898A Other specified complication of vascular prosthetic devices, implants and grafts, initial encounter (principal); Y84.9 Medical procedure, unspecified as the cause of abnormal reaction of the patient, or of later complication, without mention of misadventure at the time of the procedure; N18.6 End stage renal disease; Z99.2 Dependence on renal dialysis

== ENCOUNTER 2017-11-22 21:36 | Observation (INO) | payer MEDICARE ==
[2017-11-22 21:36] VITALS: BMI 55.7
[2017-11-22] MEDS ORDERED: Tramadol 25 mg PO STA (22:16)
--- NOTE | 2017-11-22 22:24 | C.PDOC ---
History Of Present Illness 52 y/o M c PMHx COPD, lymphedema, ESRD on HD TThS p/w chest pain x 1 hour. Pain is in focal area R parasternal associated with radiation of pain down R arm. Denies dyspnea, nausea, vomiting, diaphoresis, or dizziness. Denies fever or chills. Time Seen by Provider: 11/22/17 21:57 Chief Complaint (Nursing): Chest Pain Past Medical History Vital Signs: Last Vital Signs Temp 98.4 F 11/22/17 21:46 Pulse 92 H 11/22/17 21:46 Resp 18 11/22/17 21:46 BP 115/69 11/22/17 21:46 Pulse Ox 91 L 11/22/17 22:26 - Medical History PMH: Anemia, Bronchitis, COPD, Diabetes, HTN, Peripheral Edema, End Stage Renal Disease, Chronic Kidney Disease, Chronic Pain - [facility] Procedures (10/22/17) DIALYSIS ARTERIOVENOSTOM (05/07/14) DILATION OF LEFT BRACHIAL VEIN, PERCUTANEOUS APPROACH (08/04/16) DRESSING OF WOUND NEC (05/29/14) EXTIRPATION OF MATTER FROM L BRACH ART, PERC APPROACH (08/04/16) EXTIRPATION OF MATTER FROM LEFT BRACHIAL VEIN, PERC APPROACH (08/04/16) HEMODIALYSIS (05/29/14) INSERTION OF INFUSION DEV INTO SUP VENA CAVA, PERC APPROACH (10/22/17) OTHER FASCIECTOMY (05/29/14) PACKED CELL TRANSFUSION (05/29/14) PERCUTAN NEEDLE BIOPSY OF KIDNEY (01/30/14) PERFORMANCE OF URINARY FILTRATION, MULTIPLE (08/04/17) ULTRASONOGRAPHY OF SUPERIOR VENA CAVA, GUIDANCE (10/22/17) VENOUS CATHETERIZATION FOR RENAL DIALYSIS (01/18/14) VENOUS CATHETERIZATION NEC (09/22/13) Family History: States: Unknown Family Hx - Social History Hx Tobacco Use: No Hx Alcohol Use: Yes (Occasionally) Hx Substance Use: No - Immunization History Hx Tetanus Toxoid Vaccination: Yes (w/in 5 years) Hx Influenza Vaccination: Yes Hx Pneumococcal Vaccination: No Review Of Systems Except As Marked, All Systems Reviewed And Found Negative. Constitutional: Negative for: Fever Respiratory: Negative for: Shortness of Breath Physical Exam - Physical Exam Additional Physical Exam Comments: Gen: No acute distress. Head: Normocephalic, atraumatic. Eyes: PERRL. ENT: Moist mucous membranes. Neck: Supple. Chest: Mildly reproducible tenderness to R sided chest. CV: Regular rate. Radial pulses 2+ bilaterally. Resp: Clear to auscultation bilaterally. Abd: Soft, nontender, nondistended. Extremities: Edematous legs. Skin: No rash. Neuro: Alert, no focal deficit. ED Course And Treatment - Laboratory Results Result Diagrams: 11/22/17 22:42 11/22/17 22:42 O2 Sat by Pulse Oximetry: 91 Medical Decision Making Medical Decision Making: EKG 77 bpm, no ST elevations. Wavy baseline, probable p waves present making rhythm sinus, similar to previous. CXR no acute disease. Troponin negative, 0.031 Dr. Alegre accepts patient to observation under her service for cardiac observation. Disposition Discussed With : Ivet Alegre Doctor Will See Patient In The: Hospital - Disposition Disposition: HOSPITALIZED Disposition Time: 23:16 Condition: FAIR Forms: [facility] (Turkish) - POA Core Measure Indicators: Chest Pain - Clinical Impression Clinical Impression: Chest pain
[2017-11-22 22:45] LABS: BASO # 0.1 K/uL (0.0-0.2); BASO % 0.5 % (0.0-2.0); EOS # 0.5 K/uL (0.0-0.7); EOS % 4.7 % (0.0-4.0); HEMATOCRIT 33.4 % (35.0-51.0); LYMPH # 1.5 K/uL (1.0-4.3); LYMPH % 14.6 % (20.0-40.0); MEAN CELL VOLUME 77.2 fL (80.0-94.0); MEAN CORPUSCULAR HEMOGLOBIN 25.4 pg (27.0-31.0); MEAN CORPUSCULAR HGB CONC 32.9 g/dL (33.0-37.0); MEAN PLATELET VOLUME 8.3 fL (7.2-11.7); MONO % 9.6 % (0.0-10.0); RED CELL DISTRIBUTION WIDTH 19.5 % (11.5-14.5); WHITE BLOOD COUNT 10.5 K/uL (4.8-10.8)
[2017-11-22 22:59] LABS: ALB/GLOB RATIO 0.8 (1.0-2.1); BILIRUBIN,TOTAL 0.5 mg/dL (0.2-1.3); CALCIUM 8.6 mg/dl (8.6-10.4); POTASSIUM 3.4 mmol/L (3.6-5.2); TOTAL PROTEIN 8.7 g/dL (6.3-8.3)
[2017-11-22 23:10] LABS: TROPONIN I 0.031 ng/mL (0.00-0.120)
--- NOTE | 2017-11-22 23:55 | CP.PCM.HP ---
History of Present Illness - History of Present Illness History of Present Illness: CC: Chest pain HPI: I was called by the ER for admission for above patient who presented to ER with co chest pain. Pt states pain radiates to the right arm and according to the RN pain is reproduced by movement of right arm. Pt states he has been using his arms to push himself up in a chair and the pain seems muscular to him. Similar to the muscle pain he had when years ago when working out. Pt has been admitted to the hospital recently on two occasions for cellulitis. Pt is dialysis dependent. PMH: End stage renal failure. HD dependent copd? sleep apnea morbid obesity frequent celllulitis Lymphadema PSh: Social +tob no ethoh Meds; none family history mom form ovarian cancer in her 60"s does not know father medical history Present on Admission - Present on Admission Any Indicators Present on Admission: No Review of Systems - Constitutional Constitutional: Anorexia, Snoring. absent: Chills, Fatigue, Fever, Night Sweats - EENT Eyes: Floaters - Cardiovascular Cardiovascular: Chest Pain. absent: Chest Pain with Activity, Pedal Edema - Respiratory Respiratory: Snoring. absent: Cough - Gastrointestinal Gastrointestinal: absent: Abdominal Pain Past Patient History - Infectious Disease Hx of Infectious Diseases: None - Past Medical History & Family History Past Medical History?: Yes - Past Social History Smoking Status: Heavy Smoker > 10 Cigarettes Daily - CARDIAC Hx Hypertension: Yes Hx Peripheral Edema: Yes - PULMONARY Hx Bronchitis: Yes Hx Chronic Obstructive Pulmonary Disease (COPD): Yes - NEUROLOGICAL Hx Neurological Disorder: No - HEENT Hx HEENT Problems: No - RENAL Hx Chronic Kidney Disease: Yes - ENDOCRINE/METABOLIC Hx Diabetes Mellitus Type 2: Yes - HEMATOLOGICAL/ONCOLOGICAL Hx Anemia: Yes - INTEGUMENTARY Hx Dermatological Problems: Yes Hx Cellulitis: Yes (BILATERAL LEGS) - MUSCULOSKELETAL/RHEUMATOLOGICAL Hx Musculoskeletal Disorders: Yes Hx Falls: Yes - GASTROINTESTINAL Hx Gastrointestinal Disorders: Yes Hx Gastroesophageal Reflux: Yes - GENITOURINARY/GYNECOLOGICAL Hx Genitourinary Disorders: No - PSYCHIATRIC Hx Substance Use: No - SURGICAL HISTORY Hx Surgeries: Yes (Left arm AV Fistula) Hx Vascular Surgery: Yes (ACCESS FOR DIALYSIS) - ANESTHESIA Hx Anesthesia: Yes Hx Anesthesia Reactions: No Hx Malignant Hyperthermia: No Meds Allergies/Adverse Reactions: Allergies Allergy/AdvReac Type Severity Reaction Status Date / Time Penicillins Allergy Verified 10/26/17 16:12 piperacillin AdvReac ITCHING, Verified 10/22/17 03:21 SHORTNESS OF BREATH PET DANDER Allergy Severe CONGESTION Uncoded 10/22/17 03:21 Physical Exam - Eye Exam Eye Exam: Normal appearance - ENT Exam ENT Exam: Mucous Membranes Moist - Respiratory Exam Respiratory Exam: Chest Wall Tenderness, NORMAL BREATHING PATTERN. absent: Wheezes - Extremities Exam Extremities exam: Negative for: calf tenderness (chronic lymphadema) Results - Vital Signs Recent Vital Signs: Last Vital Signs Temp 98.4 F 11/22/17 21:46 Pulse 92 H 11/22/17 21:46 Resp 18 11/22/17 21:46 BP 115/69 11/22/17 21:46 Pulse Ox 91 L 11/22/17 23:16 - Labs Result Diagrams: 11/22/17 22:42 11/22/17 22:42 Labs: Laboratory Results - last 24 hr 11/22/17 11/22/17 22:42 22:42 WBC 10.5 RBC 4.33 L Hgb 11.0 L Hct 33.4 L MCV 77.2 L MCH 25.4 L MCHC 32.9 L RDW 19.5 H Plt Count 224 MPV 8.3 Neut % (Auto) 70.6 Lymph % (Auto) 14.6 L [place] % (Auto) 9.6 Eos % (Auto) 4.7 H Baso % (Auto) 0.5 Neut # 7.4 H Lymph # 1.5 Payne # 1.0 H Eos # 0.5 Baso # 0.1 Sodium 132 Potassium 3.4 L Chloride 91 L Carbon Dioxide 33 H Anion Gap 11 BUN 48 H Creatinine 4.3 H Est GFR ( Amer) 18 Est GFR (Non-Af Amer) 15 Random Glucose 106 Calcium 8.6 Total Bilirubin 0.5 AST 20 ALT 22 Alkaline Phosphatase 71 Total Creatine Kinase 148 CK-MB (Mass) 0.76 Troponin I 0.0310 Total Protein 8.7 H Albumin 3.9 Globulin 4.8 H Albumin/Globulin Ratio 0.8 L Assessment & Plan - Assessment and Plan (Free Text) Assessment: Atypical chest pain appears to be muscular lasted seconds, no recurrance Morbid obesity Renal failure Lymphadema Pt will be admitted under observation cardiac enzymes echo DVT prophylaxis d dimer asa oxygen right shoulder pain xray
[2017-11-23 04:58] LABS: CHOLESTEROL 171 mg/dL (0-199)
--- NOTE | 2017-11-23 07:42 | RAD ---
HISTORY: cp COMPARISON: Portable chest 09/21/2017. FINDINGS: LUNGS: No active pulmonary disease. PLEURA: No significant pleural effusion identified, no pneumothorax apparent. CARDIOVASCULAR: Cardiac size appears normal. Pulmonary vascular pattern is normalize from prior congestive pattern. Prior right central venous dialysis catheter has been removed. OSSEOUS STRUCTURES: No significant abnormalities. VISUALIZED UPPER ABDOMEN: Normal. OTHER FINDINGS: Multiple wall stents identified in the plane of the left subclavian axillary and possibly brachial arteries. IMPRESSION: No acute cardiopulmonary disease appreciable. Status post removal of right central venous dialysis catheter.
--- NOTE | 2017-11-23 10:51 | CP.PCM.CON ---
History of Present Illness - History of Present Illness History of Present Illness: 52 yo aam w/ hx of esrd on hd tts, morbid obesity, obstructive sleep apnea, dm and htn. recent hospitalization for leg cellulitis. Presented last night to Er w/ c/o rt sided chest pain and arm pain. Pt reports slipping from his desk chair and may have hurt the arm, believes the pain is muscular in nature. Denies any palpitations sob dizziness nauseavomiting fevers chills and cough. Pt doesnt recall any recent heart evaluation- echo or stress test. Last hd wednesday, disnt miss any treatments. PMD: Dr. Alegre PMHx: ESRD on dialysis, cellulitis, chronic lymphedema, and morbid obesity Psurg: Left leg wound debridement 3 years ago, dialysis catheters, AVF left upper extremity Famhx: mother: from ovarian CA at 62 y/o, thyroid disease Social: Tobacco: 8-10 cigarettes per day for 18 years, alcohol: few drinks once every 6 months, drugs: marijuana, on weekends occasionally, last smoked a few days ago Review of Systems - Review of Systems All systems: reviewed and no additional remarkable complaints except (as per HPI ) Past Patient History - Infectious Disease Hx of Infectious Diseases: None - Past Medical History & Family History Past Medical History?: Yes - Past Social History Smoking Status: Heavy Smoker > 10 Cigarettes Daily - CARDIAC Hx Hypertension: Yes Hx Peripheral Edema: Yes - PULMONARY Hx Bronchitis: Yes Hx Chronic Obstructive Pulmonary Disease (COPD): Yes - NEUROLOGICAL Hx Neurological Disorder: No - HEENT Hx HEENT Problems: No - RENAL Hx Chronic Kidney Disease: Yes - ENDOCRINE/METABOLIC Hx Diabetes Mellitus Type 2: Yes - HEMATOLOGICAL/ONCOLOGICAL Hx Anemia: Yes - INTEGUMENTARY Hx Dermatological Problems: Yes Hx Cellulitis: Yes (BILATERAL LEGS) - MUSCULOSKELETAL/RHEUMATOLOGICAL Hx Musculoskeletal Disorders: Yes Hx Falls: Yes - GASTROINTESTINAL Hx Gastrointestinal Disorders: Yes Hx Gastroesophageal Reflux: Yes - GENITOURINARY/GYNECOLOGICAL Hx Genitourinary Disorders: No - PSYCHIATRIC Hx Substance Use: No - SURGICAL HISTORY Hx Surgeries: Yes (Left arm AV Fistula) Hx Vascular Surgery: Yes (ACCESS FOR DIALYSIS) - ANESTHESIA Hx Anesthesia: Yes Hx Anesthesia Reactions: No Hx Malignant Hyperthermia: No Meds Allergies/Adverse Reactions: Allergies Allergy/AdvReac Type Severity Reaction Status Date / Time Penicillins Allergy Verified 10/26/17 16:12 piperacillin AdvReac ITCHING, Verified 10/22/17 03:21 SHORTNESS OF BREATH PET DANDER Allergy Severe CONGESTION Uncoded 10/22/17 03:21 - Medications Medications: Current Medications Acetaminophen (Tylenol 325mg Tab) 975 mg PO Q8 PRN PRN Reason: Pain, moderate (4-7) Aspirin (Aspirin Chewable) 81 mg PO DAILY [facility] Heparin Sodium (Porcine) (Heparin) 5,000 units SC Q8 [facility] Last Admin: 11/23/17 05:47 Dose: 5,000 units Rosuvastatin Calcium (Crestor) 20 mg PO HS [facility] Physical Exam - Constitutional Appears: Non-toxic, No Acute Distress, Chronically Ill (obese) - Head Exam Head Exam: NORMAL INSPECTION - Eye Exam Eye Exam: Normal appearance, PERRL - ENT Exam ENT Exam: Mucous Membranes Moist, Normal Exam - Neck Exam Neck exam: Positive for: Full Rom, Normal Inspection - Respiratory Exam Respiratory Exam: Decreased Breath Sounds, NORMAL BREATHING PATTERN - Cardiovascular Exam Cardiovascular Exam: REGULAR RHYTHM, RRR - GI/Abdominal Exam GI & Abdominal Exam: Diminished Bowel Sounds, Distended - Back Exam Additional comments: b/l stasis and lymphedema - Neurological Exam Neurological exam: Alert, Oriented x3 - Psychiatric Exam Psychiatric exam: Normal Affect, Normal Mood - Skin Skin Exam: Dry, Intact, Warm Results - Vital Signs Recent Vital Signs: Last Vital Signs Temp 97.7 F 11/23/17 07:49 Pulse 68 11/23/17 07:49 Resp 20 11/23/17 07:49 BP 134/93 H 11/23/17 07:49 Pulse Ox 96 11/23/17 07:49 - Labs Result Diagrams: 11/22/17 22:42 11/22/17 22:42 Labs: Laboratory Results - last 24 hr 11/22/17 11/22/17 11/22/17 22:42 22:42 23:55 WBC 10.5 RBC 4.33 L Hgb 11.0 L Hct 33.4 L MCV 77.2 L MCH 25.4 L MCHC 32.9 L RDW 19.5 H Plt Count 224 MPV 8.3 Neut % (Auto) 70.6 Lymph % (Auto) 14.6 L [place] % (Auto) 9.6 Eos % (Auto) 4.7 H Baso % (Auto) 0.5 Neut # 7.4 H Lymph # 1.5 [place] # 1.0 H Eos # 0.5 Baso # 0.1 D-Dimer, Quantitative 467 H Sodium 132 Potassium 3.4 L Chloride 91 L Carbon Dioxide 33 H Anion Gap 11 BUN 48 H Creatinine 4.3 H Est GFR ( Amer) 18 Est GFR (Non-Af Amer) 15 Random Glucose 106 Calcium 8.6 Total Bilirubin 0.5 AST 20 ALT 22 Alkaline Phosphatase 71 Total Creatine Kinase 148 CK-MB (Mass) 0.76 Troponin I 0.0310 Total Protein 8.7 H Albumin 3.9 Globulin 4.8 H Albumin/Globulin Ratio 0.8 L Triglycerides Cholesterol LDL Cholesterol Direct HDL Cholesterol 11/23/17 11/23/17 04:09 04:09 WBC RBC Hgb Hct MCV MCH MCHC RDW Plt Count MPV Neut % (Auto) Lymph % (Auto) [place] % (Auto) Eos % (Auto) Baso % (Auto) Neut # Lymph # [place] # Eos # Baso # D-Dimer, Quantitative Sodium Potassium Chloride Carbon Dioxide Anion Gap BUN Creatinine Est GFR ( Amer) Est GFR (Non-Af Amer) Random Glucose Calcium Total Bilirubin AST ALT Alkaline Phosphatase Total Creatine Kinase 139 CK-MB (Mass) 0.69 Troponin I < 0.0120 Total Protein Albumin Globulin Albumin/Globulin Ratio Triglycerides 293 H D Cholesterol 171 LDL Cholesterol Direct 78 HDL Cholesterol 27 L Assessment & Plan (1) ESRD (end stage renal disease) Status: Acute (2) Hypertension Status: Acute (3) Diabetes Status: Acute (4) Chest pain Status: Acute - Assessment and Plan (Free Text) Assessment: hd today cardiac evaluation hgb at goal bp acceptable start binder
--- NOTE | 2017-11-23 11:16 | VASCLAB ---
PROCEDURE: Lower Extremity Venous Duplex Exam. HISTORY: atypical chest pain ro dvt PRIORS: None. TECHNIQUE: Bilateral common femoral, femoral, popliteal and posterior tibial, peroneal and great saphenous veins were evaluated. Flow was assessed with color Doppler, compressibility, assessment of phasic flow and augmentation response. Report prepared by Nahid Ambriz, SCARLET, RVT FINDINGS: RIGHT: 1. Common Femoral Vein: 1.1. Compressibility - Fully compressible: Thrombus - None : Flow - Phasic: Augmentation -Normal: Reflux - None. 2. Femoral Vein: 2.1. Compressibility - Fully compressible: Thrombus - None : Flow - Phasic: Augmentation -Normal: Reflux - None. 3. Popliteal Vein: 3.1. Compressibility - Fully compressible: Thrombus - None : Flow - Phasic: Augmentation -Normal: Reflux - None. 4. Posterior Tibial Vein: 4.1. Compressibility - : Thrombus - : Flow - : Augmentation -: Reflux - . 5. Peroneal Vein: 5.1. Compressibility - : Thrombus - : Flow - : Augmentation -: Reflux - . 6. Great Saphenous Vein: 6.1. Compressibility - Fully compressible: Thrombus - None: Flow - Phasic: Augmentation - Normal: Reflux - None. LEFT: 1. Common Femoral Vein: 1.1. Compressibility - Fully compressible: Thrombus - None: Flow - Phasic: Augmentation -Normal: Reflux - None. 2. Femoral Vein: 2.1. Compressibility - Fully compressible: Thrombus - None: Flow - Phasic: Augmentation -Normal: Reflux - None. 3. Popliteal Vein: 3.1. Compressibility - Fully compressible: Thrombus - None : Flow - Phasic: Augmentation -Normal: Reflux - None. 4. Posterior Tibial Vein: 4.1. Compressibility - : Thrombus - : Flow - : Augmentation -: Reflux - . 5. Peroneal Vein: 5.1. Compressibility - : Thrombus - : Flow - : Augmentation -: Reflux - . 6. Great Saphenous Vein: 6.1. Compressibility - Fully compressible: Thrombus - None: Flow - Phasic: Augmentation - Normal: Reflux - None. OTHER FINDINGS: Due to swelling in the calves, bilateral peroneal and posterior tibial vein are not visualized. Technically limited study due to patient body habitus. IMPRESSION: Right: No evidence of deep or superficial vein thrombosis of the right lower extremity. Normal valve function noted of the right side. Left: No evidence of deep or superficial vein thrombosis of the left lower extremity. Normal valve function noted of the left side.
--- NOTE | 2017-11-23 11:39 | CP.PCM.PN ---
Subjective - Date & Time of Evaluation Date of Evaluation: 11/23/17 Time of Evaluation: 11:39 - Subjective Subjective: Feels well no chest pain no sob only co back discomfort from ER bed Objective - Vital Signs/Intake and Output Vital Signs (last 24 hours): Temp Pulse Resp BP Pulse Ox 97.7 F 68 20 134/93 H 96 11/23/17 07:49 11/23/17 07:49 11/23/17 07:49 11/23/17 07:49 11/23/17 07:49 - Medications Medications: Current Medications Acetaminophen (Tylenol 325mg Tab) 975 mg PO Q8 PRN PRN Reason: Pain, moderate (4-7) Aspirin (Aspirin Chewable) 81 mg PO DAILY [facility] Last Admin: 11/23/17 10:40 Dose: Not Given Calcium Acetate (Phoslo) 667 mg PO TID [facility] Heparin Sodium (Porcine) (Heparin) 5,000 units SC Q8 [facility] Last Admin: 11/23/17 05:47 Dose: 5,000 units Rosuvastatin Calcium (Crestor) 20 mg PO HS [facility] - Labs Labs: 11/22/17 22:42 11/22/17 22:42 - Constitutional Appears: Well, No Acute Distress - Eye Exam Eye Exam: Normal appearance - ENT Exam ENT Exam: Mucous Membranes Moist - Respiratory Exam Respiratory Exam: Clear to Ausculation Bilateral - Cardiovascular Exam Cardiovascular Exam: REGULAR RHYTHM, +S1, +S2. absent: JVD Assessment and Plan - Assessment and Plan (Free Text) Assessment: Muscular pain in the chest jeison so far negative awating for 3rd before discharge May dc home after HD tody follow up as outpatient
[2017-11-23 14:07] VITALS: TEMP 97.4
--- NOTE | 2017-11-23 15:03 | CP.PCM.CON ---
History of Present Illness - History of Present Illness History of Present Illness: The patient is a 61 year old man with CKD, dialysis for over three years, morbid obesity, severe lymphedema and cellulitis. Pt sits in an office chair at home, uses his arms to propel himself upwards. He did so and experienced a sharp pain in th right arm and right side of his chest, but only lasting seconds. He w brought to the hospital.. Pt has no known CAD; ecg shows nsr (small p waves) and echo reveals normal LV EF , right ventricle not well seen, but is likely dilated. Normal NTI. Review of Systems - Review of Systems All systems: reviewed and no additional remarkable complaints except (as above) Past Patient History - Infectious Disease Hx of Infectious Diseases: None - Past Medical History & Family History Past Medical History?: Yes - Past Social History Smoking Status: Heavy Smoker > 10 Cigarettes Daily - CARDIAC Hx Hypertension: Yes Hx Peripheral Edema: Yes - PULMONARY Hx Bronchitis: Yes Hx Chronic Obstructive Pulmonary Disease (COPD): Yes - NEUROLOGICAL Hx Neurological Disorder: No - HEENT Hx HEENT Problems: No - RENAL Hx Chronic Kidney Disease: Yes - ENDOCRINE/METABOLIC Hx Diabetes Mellitus Type 2: Yes - HEMATOLOGICAL/ONCOLOGICAL Hx Anemia: Yes - INTEGUMENTARY Hx Dermatological Problems: Yes Hx Cellulitis: Yes (BILATERAL LEGS) - MUSCULOSKELETAL/RHEUMATOLOGICAL Hx Musculoskeletal Disorders: Yes Hx Falls: Yes - GASTROINTESTINAL Hx Gastrointestinal Disorders: Yes Hx Gastroesophageal Reflux: Yes - GENITOURINARY/GYNECOLOGICAL Hx Genitourinary Disorders: No - PSYCHIATRIC Hx Substance Use: No - SURGICAL HISTORY Hx Surgeries: Yes (Left arm AV Fistula) Hx Vascular Surgery: Yes ([facility]) - ANESTHESIA Hx Anesthesia: Yes Hx Anesthesia Reactions: No Hx Malignant Hyperthermia: No Meds Allergies/Adverse Reactions: Allergies Allergy/AdvReac Type Severity Reaction Status Date / Time Penicillins Allergy Verified 10/26/17 16:12 piperacillin AdvReac ITCHING, Verified 10/22/17 03:21 SHORTNESS OF BREATH PET DANDER Allergy Severe CONGESTION Uncoded 10/22/17 03:21 - Medications Medications: Current Medications Acetaminophen (Tylenol 325mg Tab) 975 mg PO Q8 PRN PRN Reason: Pain, moderate (4-7) Aspirin (Aspirin Chewable) 81 mg PO DAILY [facility] Last Admin: 11/23/17 10:40 Dose: Not Given Calcium Acetate (Phoslo) 667 mg PO TID [facility] Last Admin: 11/23/17 14:10 Dose: Not Given Heparin Sodium (Porcine) (Heparin) 5,000 units SC Q8 [facility] Last Admin: 11/23/17 14:10 Dose: Not Given Rosuvastatin Calcium (Crestor) 10 mg PO HS [facility] Physical Exam - Constitutional Appears: Older Than Stated Age - Head Exam Head Exam: ATRAUMATIC - Eye Exam Eye Exam: EOMI - ENT Exam ENT Exam: Mucous Membranes Moist - Neck Exam Neck exam: Positive for: Lymphadenopathy, Normal Inspection - Respiratory Exam Respiratory Exam: Clear to Auscultation Bilateral - Cardiovascular Exam Cardiovascular Exam: REGULAR RHYTHM - GI/Abdominal Exam GI & Abdominal Exam: Normal Bowel Sounds - Exam External exam: Swelling - Extremities Exam Additional comments: severe bilateral lymphedema - Neurological Exam Neurological exam: Alert, CN II-XII Intact, Oriented x3 Results - Vital Signs Recent Vital Signs: Last Vital Signs Temp 97.4 F L 11/23/17 13:35 Pulse 67 11/23/17 13:35 Resp 18 11/23/17 13:30 BP 127/71 11/23/17 14:30 Pulse Ox 96 11/23/17 13:35 - Labs Result Diagrams: 11/22/17 22:42 11/22/17 22:42 Labs: Laboratory Results - last 24 hr 11/22/17 11/22/17 11/22/17 22:42 22:42 23:55 WBC 10.5 RBC 4.33 L Hgb 11.0 L Hct 33.4 L MCV 77.2 L MCH 25.4 L MCHC 32.9 L RDW 19.5 H Plt Count 224 MPV 8.3 Neut % (Auto) 70.6 Lymph % (Auto) 14.6 L [place] % (Auto) 9.6 Eos % (Auto) 4.7 H Baso % (Auto) 0.5 Neut # 7.4 H Lymph # 1.5 [place] # 1.0 H Eos # 0.5 Baso # 0.1 D-Dimer, Quantitative 467 H Sodium 132 Potassium 3.4 L Chloride 91 L Carbon Dioxide 33 H Anion Gap 11 BUN 48 H Creatinine 4.3 H Est GFR ( Amer) 18 Est GFR (Non-Af Amer) 15 Random Glucose 106 Calcium 8.6 Total Bilirubin 0.5 AST 20 ALT 22 Alkaline Phosphatase 71 Total Creatine Kinase 148 CK-MB (Mass) 0.76 Troponin I 0.0310 Total Protein 8.7 H Albumin 3.9 Globulin 4.8 H Albumin/Globulin Ratio 0.8 L Triglycerides Cholesterol LDL Cholesterol Direct HDL Cholesterol 11/23/17 11/23/17 11/23/17 04:09 04:09 13:36 WBC RBC Hgb Hct MCV MCH MCHC RDW Plt Count MPV Neut % (Auto) Lymph % (Auto) [place] % (Auto) Eos % (Auto) Baso % (Auto) Neut # Lymph # [place] # Eos # Baso # D-Dimer, Quantitative Sodium Potassium Chloride Carbon Dioxide Anion Gap BUN Creatinine Est GFR ( Amer) Est GFR (Non-Af Amer) Random Glucose Calcium Total Bilirubin AST ALT Alkaline Phosphatase Total Creatine Kinase 139 144 CK-MB (Mass) 0.69 0.72 Troponin I < 0.0120 < 0.0120 Total Protein Albumin Globulin Albumin/Globulin Ratio Triglycerides 293 H D Cholesterol 171 LDL Cholesterol Direct 78 HDL Cholesterol 27 L - EKG Data EKG Interpreted by: Myself EKG shows normal: Sinus rhythm (as above) Rate: Normal Assessment & Plan - Assessment and Plan (Free Text) Assessment: 1. Although pt has risk factors that increase risk of CAD, the patient;s right sided chest pain is atypical, non aginal. TNI, ecg and LV function echo are normal and not c/w CAD. Pt is reassured.
[2017-11-23 17:46] VITALS: O2SAT 98
[2017-11-23 17:55] VITALS: BP 124/80; RESP 20
--- NOTE | 2017-11-23 18:27 | CP.PCM.PN ---
Subjective - Date & Time of Evaluation Date of Evaluation: 11/23/17 Time of Evaluation: 18:25 - Subjective Subjective: PT SEEN AND EXAMINED, DENIES ANY CHEST PAIN, SHORTNESS OF BREATH, PALPITATION, RESPIRATION EASY AND UNLABORED. NAD Objective - Vital Signs/Intake and Output Vital Signs (last 24 hours): Temp Pulse Resp BP Pulse Ox 97.4 F L 81 20 124/80 98 11/23/17 17:53 11/23/17 18:14 11/23/17 17:53 11/23/17 17:53 11/23/17 17:53 Intake and Output: 11/23/17 11/23/17 06:59 18:59 Intake Total 240 Balance 240 - Medications Medications: Current Medications Acetaminophen (Tylenol 325mg Tab) 975 mg PO Q8 PRN PRN Reason: Pain, moderate (4-7) Aspirin (Aspirin Chewable) 81 mg PO DAILY [facility] Last Admin: 11/23/17 10:40 Dose: Not Given Calcium Acetate (Phoslo) 667 mg PO TID [facility] Last Admin: 11/23/17 18:09 Dose: 667 mg Heparin Sodium (Porcine) (Heparin) 5,000 units SC Q8 [facility] Last Admin: 11/23/17 14:10 Dose: Not Given Rosuvastatin Calcium (Crestor) 10 mg PO HS [facility] - Labs Labs: 11/22/17 22:42 11/22/17 22:42 Assessment and Plan - Assessment and Plan (Free Text) Plan: 52 Y/O MALE WITH PMHX COPD, LYMPHEDEMA, ESRD, HD TTHS ADMITTED FOR CHEST PAIN ROMIX3 NEGATIVE, BLE DOPPLER- NO DVT DENIES ANY CP, SOB RX CALLED TO HIS PHARMACY BY DR SCOTT F/U WITH PMD IN THE OFFICE IN 1 WEEK RETURN TO ER FOR ANY WORSENING S/S
[2017-11-23 18:35] VITALS: PULSE 72
--- NOTE | 2017-11-23 22:29 | CARD ---
APPROVED REPORT EKG Measurement Heart [id number] <Conclusion> Accelerated Junctional rhythm Nonspecific T wave abnormality Prolonged QT Abnormal ECG
--- NOTE | 2017-11-24 09:53 | RAD ---
PROCEDURE: Left shoulder HISTORY: pain right shoulder COMPARISON: Not available TECHNIQUE: Single AP radiograph of the left shoulder FINDINGS: No definite fracture. Examination limited due to inclusion of only a single view. No evidence of dislocation. Acromioclavicular joint shows mild degenerative arthritis. There is a left axillary/ brachials vascular stent incidentally noted. IMPRESSION: Limited examination. No definite fracture. Please note that there is discrepancy between the shoulder ordered) right shoulder close) and the single view of the left shoulder submitted for evaluation.
--- NOTE | 2017-11-24 22:10 | CARD ---
APPROVED REPORT EXAM: Two-dimensional and M-mode echocardiogram with Doppler and color Doppler. Other Information Quality : GoodRhythm : INDICATION Chest Pain RISK FACTORS Hypertension Hyperlipidemia Diabetes 2D DIMENSIONS IVSd0.9 (0.7-1.1cm)LVDd5.3 (3.9-5.9cm) PWd1.1 (0.7-1.1cm)LVDs4.5 (2.5-4.0cm) FS (%) 14.7 %LVEF (%)55.0 (>50%) M-Mode DIMENSIONS Left Atrium (MM)3.05 (2.5-4.0cm)Aortic Root3.41 (2.2-3.7cm) Mitral Valve MV E Hqpkktox496.7cm/sMV A Pdxtemlk27.3cm/sE/A ratio2.0 TDI E/Lateral E'0.0E/Medial E'0.0 Tricuspid Valve TR Peak [id number]/sTR Peak [id number] <Conclusion> Suboptimal study; suggest a MARY ANNE if clinically warranted Left ventricle: thickness: normal; size: normal; overall ejection fraction: 55%: diastolic filling pressures: elevated Mitral valve: annulus: normal: leaflets: normal: excursion: normal; no significant trans-mitral gradient: no significant incompetence: left atrium: normal Aortic valve: leaflets: normal: excursion: normal; indeterminate trans-aortic gradient: No significant incompetence: aortic root: normal Right sided Structures: Pulmonary valve: normal; no significant incompetence; Tricuspid valve: normal; no significant incompetence: Intra-cardiac hemodynamics: pulmonary systolic pressures: 36mmhg; central venous pressures: normal No pericardial effusion
== END 2017-11-23 21:10 | disposition home or self-care (01) ==
LOC: C.ER 21:36 → C.9E 23:15 → C.5S 11-23 06:02
PROVIDERS: ADMIT Internal Medicine; ATTEND Internal Medicine
DX: R07.89 Other chest pain (principal); I12.0 Hypertensive chronic kidney disease with stage 5 chronic kidney disease or end stage renal disease; G47.33 Obstructive sleep apnea (adult) (pediatric); E11.22 Type 2 diabetes mellitus with diabetic chronic kidney disease; J44.9 Chronic obstructive pulmonary disease, unspecified; N18.6 End stage renal disease; Z87.891 Personal history of nicotine dependence; Z99.2 Dependence on renal dialysis
CPT/HCPCS: 71010; 73020; 80053; 80061; 82550; 82553; 84484; 85025; 85378; 93005; 93306; 93970; 96372; G0257; G0378; J1644

== ENCOUNTER 2018-01-26 22:13 | Inpatient (IN) | payer MEDICARE ==
[2018-01-26 22:14] VITALS: BMI 55.7
--- NOTE | 2018-01-26 23:01 | C.PDOC ---
History Of Present Illness 52yo male with history of ESRD ondialysis, severe lypmhedema with recurrent episodes of cellulitis to his right leg, presents to ER with complaints of a cellulitis flareup in his right leg. He states when the flare up occurs, the symptoms progress really fast - he currently complains of redness, and weeping from his leg. He denies any fever or chills. Patient states he has Clindamycin at home and took 2 doses yesterday; he still reports persistent pain. Patient denies any chest pain or shortness of breath as well. Of note, patient states he had his last dialysis session yesterday and was able to complete the full session. Time Seen by Provider: 01/26/18 22:47 Chief Complaint (Nursing): Abnormal Skin Integrity History Per: Patient History/Exam Limitations: no limitations Onset/Duration Of Symptoms: Days Current Symptoms Are (Timing): Still Present Past Medical History Reviewed: Historical Data, Nursing Documentation, Vital Signs - Medical History PMH: Anemia, Bronchitis, COPD, Diabetes, HTN, Peripheral Edema, End Stage Renal Disease, Chronic Kidney Disease, Chronic Pain Surgical History: No Surg Hx - [facility] Procedures (10/22/17) DIALYSIS ARTERIOVENOSTOM (05/07/14) DILATION OF LEFT BRACHIAL VEIN, PERCUTANEOUS APPROACH (08/04/16) DRESSING OF WOUND NEC (05/29/14) EXTIRPATION OF MATTER FROM L BRACH ART, PERC APPROACH (08/04/16) EXTIRPATION OF MATTER FROM LEFT BRACHIAL VEIN, PERC APPROACH (08/04/16) HEMODIALYSIS (05/29/14) INSERTION OF INFUSION DEV INTO SUP VENA CAVA, PERC APPROACH (10/22/17) OTHER FASCIECTOMY (05/29/14) PACKED CELL TRANSFUSION (05/29/14) PERCUTAN NEEDLE BIOPSY OF KIDNEY (01/30/14) PERFORMANCE OF URINARY FILTRATION, MULTIPLE (08/04/17) ULTRASONOGRAPHY OF SUPERIOR VENA CAVA, GUIDANCE (10/22/17) VENOUS CATHETERIZATION FOR RENAL DIALYSIS (01/18/14) VENOUS CATHETERIZATION NEC (09/22/13) Family History: States: Unknown Family Hx - Social History Hx Tobacco Use: No Hx Alcohol Use: No Hx Substance Use: No - Immunization History Hx Tetanus Toxoid Vaccination: Yes (w/in 5 years) Hx Influenza Vaccination: Yes Hx Pneumococcal Vaccination: No Review Of Systems Except As Marked, All Systems Reviewed And Found Negative. Constitutional: Negative for: Fever, Chills Cardiovascular: Negative for: Chest Pain Respiratory: Negative for: Shortness of Breath Musculoskeletal: Positive for: Other (right leg swelling and pain) Physical Exam - Physical Exam Appears: Non-toxic, In Acute Distress Skin: Warm, Other (erythema noted to right lower extremity) Head: Normacephalic Eye(s): bilateral: Normal Inspection Neck: Normal ROM, Supple Cardiovascular: Rhythm Regular Respiratory: Normal Breath Sounds, No Wheezing Extremity: Tenderness (exquisite tenderness to right lower extremity), Pedal Edema (severe lymphedema noted to right leg with rolls and rolls of swollen tissue. +weeping serous fluid noted as well.) Neurological/Psych: Oriented x3 ED Course And Treatment - Laboratory Results Result Diagrams: 01/26/18 23:29 01/26/18 23:29 Lab Interpretation: Abnormal (WBC 25.3 with 94 segs, Hgb 9.8, BUN 56, Cr 7.5, K + 4.6) - Physician Consult Information Time Consulting Physician Contacted: 23:44 Physician Contacted: Ivet Alegre Outcome Of Conversation: Patient to be admitted for IV antibiotics. Medical Decision Making Medical Decision Making: Plan: -- CMP -- CBC -- Blood culture Disposition - Disposition Disposition: HOSPITALIZED Disposition Time: 00:14 Condition: FAIR - POA Present On Arrival: None - Clinical Impression Clinical Impression: Cellulitis, ESRD on hemodialysis - Scribe Statement The provider has reviewed the documentation as recorded by the Scribe (Antonietta Mohan) Provider Attestation: All medical record entries made by the Scribe were at my direction and personally dictated by me. I have reviewed the chart and agree that the record accurately reflects my personal performance of the history, physical exam, medical decision making, and the department course for this patient. I have also personally directed, reviewed, and agree with the discharge instructions and disposition.
[2018-01-26 23:32] LABS: BASO % 0.1 % (0.0-2.0); EOS # 0.1 K/uL (0.0-0.7); EOS % 0.4 % (0.0-4.0); HEMOGLOBIN 9.8 g/dL (12.0-18.0); LYMPH # 0.7 K/uL (1.0-4.3); LYMPH % 2.7 % (20.0-40.0); MEAN CELL VOLUME 76.8 fL (80.0-94.0); MEAN CORPUSCULAR HEMOGLOBIN 24.9 pg (27.0-31.0); MEAN CORPUSCULAR HGB CONC 32.5 g/dL (33.0-37.0); MEAN PLATELET VOLUME 7.9 fL (7.2-11.7); MONO # 0.7 K/uL (0.0-0.8); MONO % 2.8 % (0.0-10.0); NEUT # 23.8 K/uL (1.8-7.0); PLATELET COUNT 187 K/uL (130-400); RBC 3.95 Mil/uL (4.40-5.90); WHITE BLOOD COUNT 25.3 K/uL (4.8-10.8)
[2018-01-26] MEDS ORDERED: Vancomycin 1 GM 1 GM/250 ML BAG IV SCH (23:45)
[2018-01-26 23:50] LABS: ALB/GLOB RATIO 0.9 (1.0-2.1); ALBUMIN 3.8 g/dL (3.5-5.0); CALCIUM 9.3 mg/dl (8.6-10.4)
[2018-01-26 23:54] LABS: METAMYELOCYTE 1 % (0-0); TOTAL CELLS COUNTED 100
[2018-01-26 23:56] LABS: ANISOCYTOSIS SLIGHT; BANDS 14 % (0-2); EOSINOPHIL 1 % (0-4); LYMPHOCYTE 3 % (20-40); MONOCYTE 3 % (0-10); NEUTROPHIL 78 % (50-75); PLATELET ESTIMATE NORMAL (NORMAL)
[2018-01-26 23:57] LABS: MICROCYTOSIS SLIGHT; POIKILOCYTOSIS SLIGHT
[2018-01-27] MEDS: Clindamycin 600 MG in Sodium Chloride 0.9% 100 ML IV SCH ×2 (03:06→10:56)
[2018-01-27 09:54] LABS: SQUAMOUS EPITHIAL 13 /hpf (0-5); URINE BILIRUBIN NEGATIVE (NEGATIVE); URINE BLOOD 3+ (NEGATIVE); URINE CLARITY Hazy (Clear); URINE COLOR Amber (YELLOW); URINE GLUCOSE (UA) NORMAL (Normal); URINE LEUKOCYTE ESTERASE TRACE Leu/uL (Negative); URINE NITRATE NEGATIVE (NEGATIVE); URINE PROTEIN 3+ mg/dL (NEGATIVE); URINE UROBILINOGEN NORMAL mg/dL (0.2-1.0)
--- NOTE | 2018-01-27 10:42 | CP.PCM.CON ---
History of Present Illness - History of Present Illness History of Present Illness: 52yo male with history of ESRD ondialysis, severe lypmhedema with recurrent episodes of cellulitis to his right leg, presents to ER with complaints of a cellulitis flareup in his right leg. He states when the flare up occurs, the symptoms progress really fast - he currently complains of redness, and weeping from his leg. He denies any fever or chills. Patient states he has Clindamycin at home and took 2 doses yesterday; he still reports persistent pain. Patient denies any chest pain or shortness of breath as well. PMH: ESRD- ON DIALYSIS X 3-4 YEARS HTN MORBID OBESITY COPD LYMPHEDEMA LEs DM 2 PSH: AV GRAFT LE WOUND DEBRIDEMENTS Review of Systems - Constitutional Constitutional: Chills, Fatigue, Weakness - EENT Eyes: absent: As Per HPI, Blind Spots, Blurred Vision, Change in Vision, Decreased Night Vision, Diplopia, Discharge, Dry Eye, Exophthalmos, Floaters, Irritation, Itchy Eyes, Loss of Peripheral Vision, Pain, Photophobia, Requires Corrective Lenses, Sees Flashes, Spots in Vision, Tunnel Vision, Other Visual Disturbances, Loss of Vision, Other Ears: absent: As Per HPI, Decreased Hearing, Ear Discharge, Ear Pain, Tinnitus, Abnormal Hearing, Disequilibrium, Dizziness, Other Nose/Mouth/Throat: absent: As Per HPI, Epistaxis, Nasal Congestion, Nasal Discharge, Nasal Obstruction, Nasal Trauma, Nose Pain, Post Nasal Drip, Sinus Pain, Sinus Pressure, Bleeding Gums, Change in Voice, Dental Pain, Dry Mouth, Dysphagia, Halitosis, Hoarsness, Lip Swelling, Mouth Lesions, Mouth Pain, Odynophagia, Sore Throat, Throat Swelling, Tongue Swelling, Facial Pain, Neck Pain, Neck Mass, Other - Cardiovascular Cardiovascular: Dyspnea on Exertion, Leg Edema - Respiratory Respiratory: Cough, Dyspnea on Exertion - Gastrointestinal Gastrointestinal: Heartburn, Nausea - Genitourinary Genitourinary: As Per HPI - Musculoskeletal Musculoskeletal: Muscle Cramps, Myalgias - Integumentary Integumentary: Erythema, Skin Ulcer - Neurological Neurological: absent: As Per HPI, Abnormal Gait, Abnormal Hearing, Abnormal Movements, Abnormal Speech, Behavioral Changes, Burning Sensations, Confusion, Convulsions, Disequilibrium, Dizziness, Numbness, Focal Weakness, Frequent Falls , Headaches, Lack of Coordination, Loss of Vision, Memory Loss, Paresthesias, Radicular Pain, Restless Legs, Sensory Deficit, Syncope, Tingling, Tremor, Vertigo, Weakness, Other Visual Disturbances, Other Past Patient History - Infectious Disease Hx of Infectious Diseases: None - Past Medical History & Family History Past Medical History?: Yes Past Family History: Reviewed and not pertinent - Past Social History Smoking Status: Heavy Smoker > 10 Cigarettes Daily Chewing Tobacco Use: No Cigar Use: No Alcohol: Occasional Drugs: Cannabis, Prescription medications Home Situation {Lives}: Alone - CARDIAC Hx Hypertension: Yes Hx Peripheral Edema: Yes - PULMONARY Hx Bronchitis: Yes Hx Chronic Obstructive Pulmonary Disease (COPD): Yes - NEUROLOGICAL Hx Neurological Disorder: No - HEENT Hx HEENT Problems: No - RENAL Hx Chronic Kidney Disease: Yes - ENDOCRINE/METABOLIC Hx Diabetes Mellitus Type 2: Yes - HEMATOLOGICAL/ONCOLOGICAL Hx Anemia: Yes - INTEGUMENTARY Hx Dermatological Problems: Yes Hx Cellulitis: Yes (BILATERAL LEGS) - MUSCULOSKELETAL/RHEUMATOLOGICAL Hx Musculoskeletal Disorders: Yes Hx Falls: Yes - GASTROINTESTINAL Hx Gastrointestinal Disorders: Yes Hx Gastroesophageal Reflux: Yes - GENITOURINARY/GYNECOLOGICAL Hx Genitourinary Disorders: No - PSYCHIATRIC Hx Substance Use: No - SURGICAL HISTORY Hx Surgeries: Yes (Left arm AV Fistula) Hx Vascular Surgery: Yes ([facility] D[facility]YSIS) - ANESTHESIA Hx Anesthesia: Yes Hx Anesthesia Reactions: No Hx Malignant Hyperthermia: No Meds Allergies/Adverse Reactions: Allergies Allergy/AdvReac Type Severity Reaction Status Date / Time Penicillins Allergy Verified 10/26/17 16:12 piperacillin AdvReac ITCHING, Verified 10/22/17 03:21 SHORTNESS OF BREATH PET DANDER Allergy Severe CONGESTION Uncoded 10/22/17 03:21 - Medications Medications: Current Medications Aspirin (Aspirin Chewable) 81 mg PO DAILY [facility] Calcium Acetate (Phoslo) 667 mg PO TID [facility] Heparin Sodium (Porcine) (Heparin) 5,000 units SC Q8 [facility] Last Admin: 01/27/18 06:54 Dose: 5,000 units Hydromorphone HCl (Dilaudid) 4 mg PO Q8H PRN PRN Reason: Pain, severe (8-10) Last Admin: 01/27/18 08:06 Dose: 4 mg Vancomycin HCl (Vancomycin 1gm In Normal Saline Addvantage) 1 gm in 250 mls @ 166.667 mls/hr IV STAT [facility] Last Admin: 01/27/18 00:28 Dose: 166.667 mls/hr Clindamycin Phosphate (Cleocin) 600 mg in 50 mls @ 100 mls/hr IVPB Q8H [facility] Rosuvastatin Calcium (Crestor) 20 mg PO HS [facility] Physical Exam - Constitutional Appears: Older Than Stated Age, Chronically Ill - Head Exam Head Exam: ATRAUMATIC, NORMAL INSPECTION - Eye Exam Eye Exam: EOMI, Normal appearance - ENT Exam ENT Exam: Mucous Membranes Moist, Normal External Ear Exam - Neck Exam Neck exam: Positive for: Normal Inspection. Negative for: Tenderness - Respiratory Exam Respiratory Exam: Clear to Auscultation Bilateral, NORMAL BREATHING PATTERN - Cardiovascular Exam Cardiovascular Exam: REGULAR RHYTHM, +S1 - GI/Abdominal Exam GI & Abdominal Exam: Distended, Soft - Extremities Exam Extremities exam: Positive for: calf tenderness, pedal edema, tenderness - Neurological Exam Neurological exam: Alert, CN II-XII Intact - Skin Skin Exam: Erythema, Warm Results - Vital Signs Recent Vital Signs: Last Vital Signs Temp 98.3 F 01/27/18 10:00 Pulse 74 01/27/18 10:00 Resp 18 01/27/18 10:00 BP 108/65 01/27/18 10:00 Pulse Ox 95 01/27/18 10:00 - Labs Result Diagrams: 01/26/18 23:29 01/26/18 23:29 Labs: Laboratory Results - last 24 hr 01/26/18 01/26/18 01/27/18 23:29 23:29 09:36 WBC 25.3 H D RBC 3.95 L Hgb 9.8 L Hct 30.3 L MCV 76.8 L MCH 24.9 L MCHC 32.5 L RDW 17.0 H Plt Count 187 MPV 7.9 Neut % (Auto) 94.0 H Lymph % (Auto) 2.7 L [place] % (Auto) 2.8 Eos % (Auto) 0.4 Baso % (Auto) 0.1 Neut # (Auto) 23.8 H Lymph # (Auto) 0.7 L [place] # (Auto) 0.7 Eos # (Auto) 0.1 Baso # (Auto) 0.0 Neutrophils % (Manual) 78 H Band Neutrophils % 14 H* Lymphocytes % (Manual) 3 L Monocytes % (Manual) 3 Eosinophils % (Manual) 1 Metamyelocytes % 1 H Platelet Estimate Normal Poikilocytosis (manual Slight Anisocytosis (manual) Slight Microcytosis (manual) Slight Sodium 139 Potassium 4.6 Chloride 92 L Carbon Dioxide 31 H Anion Gap 20 BUN 56 H Creatinine 7.5 H* D Est GFR ( Amer) 9 Est GFR (Non-Af Amer) 8 Random Glucose 86 Calcium 9.3 Total Bilirubin 0.9 AST 22 ALT 29 Alkaline Phosphatase 77 Total Protein 8.3 Albumin 3.8 Globulin 4.5 H Albumin/Globulin Ratio 0.9 L Urine Color [place] Urine Clarity Hazy Urine pH 7.0 Ur Specific [place] 1.020 Urine Protein 3+ H Urine Glucose (UA) Normal Urine Ketones Negative Urine Blood 3+ H Urine Nitrate Negative Urine Bilirubin Negative Urine Urobilinogen Normal Ur Leukocyte Esterase Trace Urine WBC (Auto) 13 H Urine RBC (Auto) 1086 H Ur Squamous Epith Cells 13 H Assessment & Plan (1) Cellulitis of right leg Status: Acute (2) Lymphedema Status: Acute (3) DM type 2 (diabetes mellitus, type 2) Status: Acute (4) ESRD (end stage renal disease) Status: Acute (5) Chronic obstructive pulmonary disease Status: Acute (6) Morbid obesity due to excess calories Status: Acute - Assessment and Plan (Free Text) Plan: IV ABs cultures dialysis TTS wound care UC+S
[2018-01-27] MEDS ORDERED: Clindamycin 600 MG in Sodium Chloride 0.9% 100 ML IV SCH (12:00)
[2018-01-27] MEDS ORDERED: Clindamycin 600mg/50ml D5W 600 MG/50 ML VIAL IVPB SCH (12:00)
--- NOTE | 2018-01-27 15:42 | CP.PCM.HP ---
History of Present Illness - History of Present Illness History of Present Illness: Pt came to the ER for leg swelling and cellulitis. Pt is a 52 year old male with mobid obesity and lymphadema. He has had recurrent hospital admissions with cellulitis. I rarely see him in my office. He follows with Dr. Mota for HD. Pt co pain in legs, swelling and redness on the right leg. Pt states he felt hot and was starting to feel some chills +pain in and wheeping form right leg Past Medical Hx: End stage renal disease Asthma Lymphedema Venous Insufficiency Family Hx: Mother- Ovarian cancer Father- Thyroid cancer Allergies: NKDA Surgical Hx: Kidney cath 01/27/2014 Social Hx: Former smoker neg. ETOH neg. Drugs Medication: NONE Present on Admission - Present on Admission Any Indicators Present on Admission: No Review of Systems - Constitutional Constitutional: Chills - Gastrointestinal Gastrointestinal: Cramping. absent: Diarrhea - Genitourinary Genitourinary: absent: Freq UTI Past Patient History - Infectious Disease Hx of Infectious Diseases: None - Past Medical History & Family History Past Medical History?: Yes - Past Social History Smoking Status: Light Smoker < 10 Cigarettes Daily - CARDIAC Hx Cardiac Disorders: Yes Hx Hypertension: Yes Hx Peripheral Edema: Yes - PULMONARY Hx Respiratory Disorders: Yes Hx Bronchitis: Yes Hx Chronic Obstructive Pulmonary Disease (COPD): Yes - NEUROLOGICAL Hx Neurological Disorder: No - HEENT Hx HEENT Problems: No - RENAL Hx Chronic Kidney Disease: Yes - ENDOCRINE/METABOLIC Hx Endocrine Disorders: Yes Hx Diabetes Mellitus Type 2: Yes - HEMATOLOGICAL/ONCOLOGICAL Hx Blood Disorders: Yes Hx Anemia: Yes - INTEGUMENTARY Hx Dermatological Problems: Yes Hx Cellulitis: Yes (BILATERAL LEGS) - MUSCULOSKELETAL/RHEUMATOLOGICAL Hx Musculoskeletal Disorders: Yes Hx Falls: Yes - GASTROINTESTINAL Hx Gastrointestinal Disorders: Yes Hx Gastroesophageal Reflux: Yes - GENITOURINARY/GYNECOLOGICAL Hx Genitourinary Disorders: No - PSYCHIATRIC Hx Substance Use: No - SURGICAL HISTORY Hx Surgeries: Yes (Left arm AV Fistula) Hx Vascular Surgery: Yes (ACCESS FOR DIALYSIS) - ANESTHESIA Hx Anesthesia: Yes Hx Anesthesia Reactions: No Hx Malignant Hyperthermia: No Has any member of the family had a problem w/ anesthesia?: No Meds Allergies/Adverse Reactions: Allergies Allergy/AdvReac Type Severity Reaction Status Date / Time Penicillins Allergy Verified 10/26/17 16:12 piperacillin AdvReac ITCHING, Verified 10/22/17 03:21 SHORTNESS OF BREATH PET DANDER Allergy Severe CONGESTION Uncoded 10/22/17 03:21 Physical Exam - Eye Exam Eye Exam: EOMI, Normal appearance - ENT Exam ENT Exam: Mucous Membranes Moist - Respiratory Exam Respiratory Exam: NORMAL BREATHING PATTERN. absent: Chest Wall Tenderness - Cardiovascular Exam Cardiovascular Exam: REGULAR RHYTHM, RRR. absent: JVD - GI/Abdominal Exam GI & Abdominal Exam: Normal Bowel Sounds, Soft (pt with chronic lyphadema, legs swollen, some redness in right leg) Results - Vital Signs Recent Vital Signs: Last Vital Signs Temp 98.4 F 01/27/18 14:48 Pulse 75 01/27/18 14:48 Resp 16 01/27/18 14:48 BP 137/68 01/27/18 14:48 Pulse Ox 97 01/27/18 14:48 - Labs Result Diagrams: 01/26/18 23:29 01/26/18 23:29 Labs: Laboratory Results - last 24 hr 01/26/18 01/26/18 01/27/18 23:29 23:29 09:36 WBC 25.3 H D RBC 3.95 L Hgb 9.8 L Hct 30.3 L MCV 76.8 L MCH 24.9 L MCHC 32.5 L RDW 17.0 H Plt Count 187 MPV 7.9 Neut % (Auto) 94.0 H Lymph % (Auto) 2.7 L [place] % (Auto) 2.8 Eos % (Auto) 0.4 Baso % (Auto) 0.1 Neut # (Auto) 23.8 H Lymph # (Auto) 0.7 L [place] # (Auto) 0.7 Eos # (Auto) 0.1 Baso # (Auto) 0.0 Neutrophils % (Manual) 78 H Band Neutrophils % 14 H* Lymphocytes % (Manual) 3 L Monocytes % (Manual) 3 Eosinophils % (Manual) 1 Metamyelocytes % 1 H Platelet Estimate Normal Poikilocytosis (manual Slight Anisocytosis (manual) Slight Microcytosis (manual) Slight Sodium 139 Potassium 4.6 Chloride 92 L Carbon Dioxide 31 H Anion Gap 20 BUN 56 H Creatinine 7.5 H* D Est GFR ( Amer) 9 Est GFR (Non-Af Amer) 8 Random Glucose 86 Calcium 9.3 Total Bilirubin 0.9 AST 22 ALT 29 Alkaline Phosphatase 77 Total Protein 8.3 Albumin 3.8 Globulin 4.5 H Albumin/Globulin Ratio 0.9 L Urine Color [place] Urine Clarity Hazy Urine pH 7.0 Ur Specific [place] 1.020 Urine Protein 3+ H Urine Glucose (UA) Normal Urine Ketones Negative Urine Blood 3+ H Urine Nitrate Negative Urine Bilirubin Negative Urine Urobilinogen Normal Ur Leukocyte Esterase Trace Urine WBC (Auto) 13 H Urine RBC (Auto) 1086 H Ur Squamous Epith Cells 13 H Assessment & Plan - Assessment and Plan (Free Text) Assessment: 52 year old with morbid obesity and requerrent cellultits wbc 24 admit blood culture had one dose of vanco in ER cont clinda pain managment HD dependent renal consul gi and renal prophylaxis
[2018-01-27] MEDS: Epoetin Alfa 10,000 unit/ml Dialysis IV SCH (16:26)
[2018-01-27] MEDS: Clindamycin 600mg/50ml NS 600 MG/50 ML BAG IVPB SCH (20:00)
[2018-01-28] MEDS: Clindamycin 600mg/50ml NS 600 MG/50 ML BAG IVPB SCH ×3 (03:10→20:24)
[2018-01-28 11:49] LABS: BASO % 0.2 % (0.0-2.0); EOS # 0.4 K/uL (0.0-0.7); EOS % 2.4 % (0.0-4.0); HEMOGLOBIN 9.5 g/dL (12.0-18.0); LYMPH # 1.4 K/uL (1.0-4.3); LYMPH % 9.1 % (20.0-40.0); MEAN CELL VOLUME 76.9 fL (80.0-94.0); MEAN CORPUSCULAR HEMOGLOBIN 25.5 pg (27.0-31.0); MEAN CORPUSCULAR HGB CONC 33.1 g/dL (33.0-37.0); MEAN PLATELET VOLUME 8.4 fL (7.2-11.7); MONO # 0.9 K/uL (0.0-0.8); MONO % 5.9 % (0.0-10.0); NEUT # 12.9 K/uL (1.8-7.0); NEUT % 82.4 % (50.0-75.0); NRBC % 0.1 % (0.0-2.0); PLATELET COUNT 201 K/uL (130-400); RBC 3.74 Mil/uL (4.40-5.90); RED CELL DISTRIBUTION WIDTH 16.8 % (11.5-14.5); WHITE BLOOD COUNT 15.6 K/uL (4.8-10.8)
[2018-01-28 12:36] LABS: EOSINOPHIL 2 % (0-4); LYMPHOCYTE 10 % (20-40); MONOCYTE 6 % (0-10); NEUTROPHIL 82 % (50-75); PLATELET ESTIMATE NORMAL (NORMAL); TOTAL CELLS COUNTED 100
--- NOTE | 2018-01-28 13:30 | CP.PCM.PN ---
Subjective - Date & Time of Evaluation Date of Evaluation: 01/28/18 Time of Evaluation: 13:27 - Subjective Subjective: s/p dialysis 3/ right LE less swollen today cultures negative feels better on IV clindamycin Objective - Vital Signs/Intake and Output Vital Signs (last 24 hours): Temp Pulse Resp BP Pulse Ox 98.3 F 76 20 119/66 95 01/28/18 08:00 01/28/18 08:00 01/28/18 08:00 01/28/18 08:00 01/28/18 08:00 Intake and Output: 01/28/18 01/28/18 06:59 18:59 Intake Total 300 60 Balance 300 60 - Medications Medications: Current Medications Aspirin (Aspirin Chewable) 81 mg PO DAILY [facility] Last Admin: 01/28/18 09:58 Dose: 81 mg Calcium Acetate (Phoslo) 667 mg PO TID [facility] Last Admin: 01/28/18 09:58 Dose: 667 mg Docusate Sodium (Colace) 100 mg PO BID [facility] Last Admin: 01/28/18 09:58 Dose: 100 mg Epoetin [place] (Procrit) 10,000 unit IV TTS [facility] Last Admin: 01/27/18 16:26 Dose: 10,000 unit Heparin Sodium (Porcine) (Heparin) 5,000 units SC Q8 [facility] Last Admin: 01/28/18 05:47 Dose: 5,000 units Hydromorphone HCl (Dilaudid) 4 mg PO Q5H PRN PRN Reason: Leg cramps Last Admin: 01/28/18 06:28 Dose: 4 mg Vancomycin HCl (Vancomycin 1gm In Normal Saline Addvantage) 1 gm in 250 mls @ 166.667 mls/hr IV STAT [facility] Last Admin: 01/27/18 00:28 Dose: 166.667 mls/hr Clindamycin Phosphate (Cleocin In Normal Saline) 600 mg in 50 mls @ 100 mls/hr IVPB Q8H [facility] Last Admin: 01/28/18 11:41 Dose: 100 mls/hr Rosuvastatin Calcium (Crestor) 20 mg PO HS [facility] Last Admin: 01/27/18 21:42 Dose: 20 mg - Labs Labs: 01/28/18 11:33 01/26/18 23:29 - Constitutional Appears: No Acute Distress, Chronically Ill - Head Exam Head Exam: ATRAUMATIC, NORMAL INSPECTION - Eye Exam Eye Exam: EOMI, Normal appearance - Neck Exam Neck Exam: Normal Inspection. absent: Tenderness - Respiratory Exam Respiratory Exam: Clear to Ausculation Bilateral, NORMAL BREATHING PATTERN - Cardiovascular Exam Cardiovascular Exam: REGULAR RHYTHM, +S1 - GI/Abdominal Exam GI & Abdominal Exam: Soft. absent: Tenderness - Extremities Exam Extremities Exam: Pedal Edema, Tenderness - Neurological Exam Neurological Exam: Alert, CN II-XII Intact - Skin Skin Exam: Erythema, Warm Assessment and Plan (1) Cellulitis of right leg Status: Acute (2) Lymphedema Status: Acute (3) DM type 2 (diabetes mellitus, type 2) Status: Acute (4) ESRD (end stage renal disease) Status: Acute (5) Chronic obstructive pulmonary disease Status: Acute (6) Morbid obesity due to excess calories Status: Acute - Assessment and Plan (Free Text) Plan: Continue dialysis TTS IOV ABs follow up cultures IV ESAs for decreased Hg
--- NOTE | 2018-01-28 13:34 | CP.PCM.PN ---
Subjective - Date & Time of Evaluation Date of Evaluation: 01/28/18 Time of Evaluation: 05:00 - Subjective Subjective: Pt has been afebrile Reports feeling better had a good night pain controlled no new issues Objective - Vital Signs/Intake and Output Vital Signs (last 24 hours): Temp Pulse Resp BP Pulse Ox 98.3 F 76 20 119/66 95 01/28/18 08:00 01/28/18 08:00 01/28/18 08:00 01/28/18 08:00 01/28/18 08:00 Intake and Output: 01/28/18 01/28/18 06:59 18:59 Intake Total 300 60 Balance 300 60 - Medications Medications: Current Medications Aspirin (Aspirin Chewable) 81 mg PO DAILY [facility] Last Admin: 01/28/18 09:58 Dose: 81 mg Calcium Acetate (Phoslo) 667 mg PO TID [facility] Last Admin: 01/28/18 09:58 Dose: 667 mg Docusate Sodium (Colace) 100 mg PO BID [facility] Last Admin: 01/28/18 09:58 Dose: 100 mg Epoetin [place] (Procrit) 10,000 unit IV TTS [facility] Last Admin: 01/27/18 16:26 Dose: 10,000 unit Heparin Sodium (Porcine) (Heparin) 5,000 units SC Q8 [facility] Last Admin: 01/28/18 05:47 Dose: 5,000 units Hydromorphone HCl (Dilaudid) 4 mg PO Q5H PRN PRN Reason: Leg cramps Last Admin: 01/28/18 06:28 Dose: 4 mg Vancomycin HCl (Vancomycin 1gm In Normal Saline Addvantage) 1 gm in 250 mls @ 166.667 mls/hr IV STAT [facility] Last Admin: 01/27/18 00:28 Dose: 166.667 mls/hr Clindamycin Phosphate (Cleocin In Normal Saline) 600 mg in 50 mls @ 100 mls/hr IVPB Q8H [facility] Last Admin: 01/28/18 11:41 Dose: 100 mls/hr Rosuvastatin Calcium (Crestor) 20 mg PO HS [facility] Last Admin: 01/27/18 21:42 Dose: 20 mg - Labs Labs: 01/28/18 11:33 01/26/18 23:29 - Constitutional Appears: Well, No Acute Distress - Eye Exam Eye Exam: Normal appearance - ENT Exam ENT Exam: Mucous Membranes Moist - Respiratory Exam Respiratory Exam: Clear to Ausculation Bilateral - Cardiovascular Exam Cardiovascular Exam: REGULAR RHYTHM (leg edematous but redness decreased in right leg) Assessment and Plan - Assessment and Plan (Free Text) Assessment: cellulitis no fever no growth in blood cultures wbc trending down continue iv abx cbc in AM
[2018-01-29] MEDS: Clindamycin 600mg/50ml NS 600 MG/50 ML BAG IVPB SCH ×2 (03:30→13:26)
[2018-01-29 09:10] LABS: BASO % 0.4 % (0.0-2.0); EOS # 0.5 K/uL (0.0-0.7); EOS % 5.5 % (0.0-4.0); HEMOGLOBIN 9.7 g/dL (12.0-18.0); LYMPH # 1.2 K/uL (1.0-4.3); LYMPH % 11.9 % (20.0-40.0); MEAN CELL VOLUME 77.1 fL (80.0-94.0); MEAN CORPUSCULAR HEMOGLOBIN 25.7 pg (27.0-31.0); MEAN CORPUSCULAR HGB CONC 33.4 g/dL (33.0-37.0); MEAN PLATELET VOLUME 8.2 fL (7.2-11.7); MONO # 0.7 K/uL (0.0-0.8); MONO % 6.7 % (0.0-10.0); NEUT # 7.4 K/uL (1.8-7.0); NEUT % 75.5 % (50.0-75.0); RBC 3.76 Mil/uL (4.40-5.90); RED CELL DISTRIBUTION WIDTH 16.9 % (11.5-14.5); WHITE BLOOD COUNT 9.8 K/uL (4.8-10.8)
--- NOTE | 2018-01-29 09:50 | CP.PCM.PN ---
Subjective - Date & Time of Evaluation Date of Evaluation: 01/29/18 Time of Evaluation: 09:47 - Subjective Subjective: Notes reviewed Comfortable in bed No pain Edema improving Tolerating diet well No cp or palp No sob or cough No n/v/d ROS as above otherwise negative Objective - Vital Signs/Intake and Output Vital Signs (last 24 hours): Temp Pulse Resp BP Pulse Ox 97.9 F 65 20 110/71 95 01/29/18 07:00 01/29/18 07:00 01/29/18 07:00 01/29/18 07:00 01/29/18 07:00 Intake and Output: 01/29/18 01/29/18 06:59 18:59 Intake Total 750 Output Total 150 Balance 600 - Medications Medications: Current Medications Aspirin (Aspirin Chewable) 81 mg PO DAILY [facility] Last Admin: 01/29/18 09:26 Dose: Not Given Calcium Acetate (Phoslo) 667 mg PO TIDCC [facility] Last Admin: 01/29/18 08:01 Dose: 667 mg Docusate Sodium (Colace) 100 mg PO BID [facility] Last Admin: 01/28/18 17:41 Dose: 100 mg Epoetin [place] (Procrit) 10,000 unit IV TTS [facility] Last Admin: 01/27/18 16:26 Dose: 10,000 unit Heparin Sodium (Porcine) (Heparin) 5,000 units SC Q8 [facility] Last Admin: 01/29/18 06:00 Dose: Not Given Hydromorphone HCl (Dilaudid) 4 mg PO Q5H PRN PRN Reason: Leg cramps Last Admin: 01/29/18 08:01 Dose: 4 mg Vancomycin HCl (Vancomycin 1gm In Normal Saline Addvantage) 1 gm in 250 mls @ 166.667 mls/hr IV STAT [facility] Last Admin: 01/27/18 00:28 Dose: 166.667 mls/hr Clindamycin Phosphate (Cleocin In Normal Saline) 600 mg in 50 mls @ 100 mls/hr IVPB Q8H [facility] Last Admin: 01/29/18 03:30 Dose: 100 mls/hr Rosuvastatin Calcium (Crestor) 20 mg PO HS [facility] Last Admin: 01/28/18 21:21 Dose: 20 mg - Labs Labs: 01/29/18 08:57 02/28/18 23:29 - Constitutional Appears: Well, Non-toxic, Unkempt - Head Exam Head Exam: ATRAUMATIC, NORMAL INSPECTION - Eye Exam Eye Exam: EOMI, Normal appearance - ENT Exam ENT Exam: Mucous Membranes Moist, Normal Oropharynx - Neck Exam Neck Exam: absent: Lymphadenopathy, Thyromegaly - Respiratory Exam Respiratory Exam: Clear to Ausculation Bilateral, NORMAL BREATHING PATTERN. absent: Rales, Rhonchi - Cardiovascular Exam Cardiovascular Exam: +S1, +S2. absent: Rubs - GI/Abdominal Exam GI & Abdominal Exam: Soft, Normal Bowel Sounds - Extremities Exam Extremities Exam: Pedal Edema, Tenderness - Neurological Exam Neurological Exam: Alert, Awake, Oriented x3 - Psychiatric Exam Psychiatric exam: Normal Affect, Normal Mood Assessment and Plan (1) DM type 2 (diabetes mellitus, type 2) Status: Acute (2) Lymphedema Status: Acute (3) Morbid obesity due to excess calories Status: Acute (4) ESRD on hemodialysis Status: Chronic (5) Cellulitis Status: Acute (6) Lymphedema of lower extremity Status: Chronic - Assessment and Plan (Free Text) Assessment: Dialysis scheduled today UF as tolerated Bp stable YAMEL on HD
[2018-01-29] MEDS ORDERED: Epoetin Alfa 10,000 unit/ml Dialysis IV SCH (10:00)
--- NOTE | 2018-01-29 14:46 | CP.PCM.DIS ---
Provider - Provider Date of Admission: 01/27/18 00:19 Attending physician: Ivet Alegre MD Time Spent in preparation of Discharge (in minutes): 20 Hospital Course - Lab Results Lab Results: Micro Results 01/26/18 23:30 Blood Blood Culture - Preliminary NO GROWTH AFTER 48 HOURS 01/26/18 23:00 Blood Blood Culture - Preliminary NO GROWTH AFTER 48 HOURS Most Recent Lab Values WBC 9.8 K/uL (4.8-10.8) 01/29/18 08:57 RBC 3.76 Mil/uL (4.40-5.90) L 01/29/18 08:57 Hgb 9.7 g/dL (12.0-18.0) L 01/29/18 08:57 Hct 29.0 % (35.0-51.0) L 01/29/18 08:57 MCV 77.1 fL (80.0-94.0) L 01/29/18 08:57 MCH 25.7 pg (27.0-31.0) L 01/29/18 08:57 MCHC 33.4 g/dL (33.0-37.0) 01/29/18 08:57 RDW 16.9 % (11.5-14.5) H 01/29/18 08:57 Plt Count 218 K/uL (130-400) 01/29/18 08:57 MPV 8.2 fL (7.2-11.7) 01/29/18 08:57 Neut % (Auto) 75.5 % (50.0-75.0) H 01/29/18 08:57 Lymph % (Auto) 11.9 % (20.0-40.0) L 01/29/18 08:57 [place] % (Auto) 6.7 % (0.0-10.0) 01/29/18 08:57 Eos % (Auto) 5.5 % (0.0-4.0) H 01/29/18 08:57 Baso % (Auto) 0.4 % (0.0-2.0) 01/29/18 08:57 Neut # (Auto) 7.4 K/uL (1.8-7.0) H 01/29/18 08:57 Lymph # (Auto) 1.2 K/uL (1.0-4.3) 01/29/18 08:57 [place] # (Auto) 0.7 K/uL (0.0-0.8) 01/29/18 08:57 Eos # (Auto) 0.5 K/uL (0.0-0.7) 01/29/18 08:57 Baso # (Auto) 0.0 K/uL (0.0-0.2) 01/29/18 08:57 Neutrophils % (Manual) 82 % (50-75) H 01/28/18 11:33 Band Neutrophils % 14 % (0-2) H* 01/26/18 23:29 Lymphocytes % (Manual) 10 % (20-40) L 01/28/18 11:33 Monocytes % (Manual) 6 % (0-10) 01/28/18 11:33 Eosinophils % (Manual) 2 % (0-4) 01/28/18 11:33 Metamyelocytes % 1 % (0-0) H 01/26/18 23:29 Platelet Estimate Normal (NORMAL) 01/28/18 11:33 Poikilocytosis (manual Slight 01/26/18 23:29 Anisocytosis (manual) Slight 01/26/18 23:29 Microcytosis (manual) Slight 01/26/18 23:29 Sodium 139 mmol/L (132-148) 01/26/18 23:29 Potassium 4.6 mmol/L (3.6-5.2) 01/26/18 23:29 Chloride 92 mmol/L (98-107) L 01/26/18 23:29 Carbon Dioxide 31 mmol/L (22-30) H 01/26/18 23:29 Anion Gap 20 (10-20) 01/26/18 23:29 BUN 56 mg/dL (9-20) H 01/26/18 23:29 Creatinine 7.5 mg/dL (0.8-1.5) H* D 01/26/18 23:29 Est GFR ( Amer) 9 01/26/18 23:29 Est GFR (Non-Af Amer) 8 01/26/18 23:29 POC Glucose (mg/dL) 85 mg/dL (65-110) 01/29/18 11:10 Random Glucose 86 mg/dL (75-110) 01/26/18 23:29 Calcium 9.3 mg/dl (8.6-10.4) 01/26/18 23:29 Total Bilirubin 0.9 mg/dL (0.2-1.3) 01/26/18 23:29 AST 22 U/L (17-59) 01/26/18 23:29 ALT 29 U/L (21-72) 01/26/18 23:29 Alkaline Phosphatase 77 U/L (38-126) 01/26/18 23: Total Protein 8.3 g/dL (6.3-8.3) 01/26/18 23:29 Albumin 3.8 g/dL (3.5-5.0) 01/26/18 23: Globulin 4.5 gm/dL (2.2-3.9) H 01/26/18 23: Albumin/Globulin Ratio 0.9 (1.0-2.1) L 01/26/18 23:29 Urine Color [place] (YELLOW) 01/27/18 09:36 Urine Clarity Hazy (Clear) 01/27/18 09:36 Urine pH 7.0 (5.0-8.0) 01/27/18 09:36 Ur Specific [place] 1.020 (1.003-1.030) 01/27/18 09:36 Urine Protein 3+ mg/dL (NEGATIVE) H 01/27/18 09:36 Urine Glucose (UA) Normal mg/dL (Normal) 01/27/18 09:36 Urine Ketones Negative mg/dL (NEGATIVE) 01/27/18 09:36 Urine Blood 3+ (NEGATIVE) H 01/27/18 09:36 Urine Nitrate Negative (NEGATIVE) 01/27/18 09:36 Urine Bilirubin Negative (NEGATIVE) 01/27/18 09:36 Urine Urobilinogen Normal mg/dL (0.2-1.0) 01/27/18 09:36 Ur Leukocyte Esterase Trace [place]/uL (Negative) 01/27/18 09:36 Urine WBC (Auto) 13 /hpf (0-5) H 01/27/18 09:36 Urine RBC (Auto) 1086 /hpf (0-3) H 01/27/18 09:36 Ur Squamous Epith Cells 13 /hpf (0-5) H 01/27/18 09:36 - Hospital Course Hospital Course: Pt WAS ADMITTED BLOOD CULTURES DONE,,,, NO GROWTH TREASTED WITH IV CLINDA WITH GOOD RESULTS HAD ONE DOSE OF VANCO IN ER PT HAD PAIN MANAGEMENT DIALYISI CONTINUED HE REMAINED AFEBRILE WBC DEGREASED DC HOME ON PO MEDS Discharge Exam - Head Exam Head Exam: ATRAUMATIC, NORMAL INSPECTION Discharge Plan - Follow Up Plan Condition: FAIR Disposition: HOME/ ROUTINE
[2018-01-29] MEDS: Epoetin Alfa 10,000 unit/ml Dialysis IV SCH (17:12)
[2018-01-29 20:11] VITALS: RESP 19; TEMP 97.4; O2SAT 98
[2018-01-29 20:26] VITALS: BP 123/81; PULSE 64
[2018-01-30] MEDS ORDERED: Influenza Vaccine 60 mcg/0.5 mL SYR (4YR UP) IM ONE (10:00)
== END 2018-01-29 21:22 | disposition home or self-care (01) | DRG 602 ==
LOC: C.ER 22:13 → C.9E 01-27 00:19 → C.3T 01-27 18:56
PROVIDERS: ADMIT Internal Medicine; ATTEND Internal Medicine
PROC: 5A1D70Z Performance of Urinary Filtration, Intermittent, Less than 6 Hours Per Day (ICD-10-PCS; principal; 2018-01-27)
DX: L03.115 Cellulitis of right lower limb (principal); N18.6 End stage renal disease; E11.22 Type 2 diabetes mellitus with diabetic chronic kidney disease; I12.0 Hypertensive chronic kidney disease with stage 5 chronic kidney disease or end stage renal disease; Z68.43 Body mass index [BMI] 50.0-59.9, adult; F17.210 Nicotine dependence, cigarettes, uncomplicated; E66.01 Morbid (severe) obesity due to excess calories; I87.2 Venous insufficiency (chronic) (peripheral); I89.0 Lymphedema, not elsewhere classified; J44.9 Chronic obstructive pulmonary disease, unspecified; K21.9 Gastro-esophageal reflux disease without esophagitis; Z80.8 Family history of malignant neoplasm of other organs or systems; Z99.2 Dependence on renal dialysis

== ENCOUNTER 2018-02-04 17:09 | Inpatient (IN) | payer MEDICARE ==
[2018-02-04 17:10] VITALS: BMI 55.7
--- NOTE | 2018-02-04 18:15 | C.PDOC ---
History Of Present Illness 52 yr old male presents to the ER with complaints of chest pain and SOB for the past 2 days. Patient reports last dialysis was last Wednesday. Patient also reports of continuing pain in his right thigh. Denies fever, chills, nausea, vomiting, weakness or numbness. Time Seen by Provider: 02/04/18 17:39 Chief Complaint (Nursing): Chest Pain History Per: Patient History/Exam Limitations: no limitations Onset/Duration Of Symptoms: Days (2) Past Medical History Reviewed: Historical Data, Nursing Documentation, Vital Signs Vital Signs: Last Vital Signs Temp 97.5 F L 02/04/18 17:22 Pulse 76 02/04/18 17:22 Resp 22 02/04/18 17:22 BP 95/40 L 02/04/18 17:22 Pulse Ox 96 02/04/18 19:15 - Medical History PMH: Anemia, Bronchitis, COPD, Diabetes, HTN, Peripheral Edema, End Stage Renal Disease, Chronic Kidney Disease, Chronic Pain - [facility] Procedures (01/27/18) DIALYSIS ARTERIOVENOSTOM (05/07/14) DILATION OF LEFT BRACHIAL VEIN, PERCUTANEOUS APPROACH (08/04/16) DRESSING OF WOUND NEC (05/29/14) EXTIRPATION OF MATTER FROM L BRACH ART, PERC APPROACH (08/04/16) EXTIRPATION OF MATTER FROM LEFT BRACHIAL VEIN, PERC APPROACH (08/04/16) HEMODIALYSIS (05/29/14) INSERTION OF INFUSION DEV INTO SUP VENA CAVA, PERC APPROACH (10/22/17) OTHER FASCIECTOMY (05/29/14) PACKED CELL TRANSFUSION (05/29/14) PERCUTAN NEEDLE BIOPSY OF KIDNEY (01/30/14) PERFORMANCE OF URINARY FILTRATION, MULTIPLE (08/04/17) ULTRASONOGRAPHY OF SUPERIOR VENA CAVA, GUIDANCE (10/22/17) VENOUS CATHETERIZATION FOR RENAL DIALYSIS (01/18/14) VENOUS CATHETERIZATION NEC (09/22/13) Family History: States: No Known Family Hx - Social History Hx Tobacco Use: No Hx Alcohol Use: No Hx Substance Use: No - Immunization History Hx Tetanus Toxoid Vaccination: Yes (w/in 5 years) Hx Influenza Vaccination: Yes Hx Pneumococcal Vaccination: No Review Of Systems Constitutional: Negative for: Fever, Chills Cardiovascular: Positive for: Chest Pain Respiratory: Positive for: Shortness of Breath Gastrointestinal: Negative for: Nausea, Vomiting Musculoskeletal: Positive for: Leg Pain (right) Neurological: Negative for: Weakness, Numbness Physical Exam - Physical Exam Appears: Non-toxic, No Acute Distress, Other (morbidly obese) Skin: Warm, Dry Oral Mucosa: Moist Cardiovascular: Rhythm Regular, No Murmur Respiratory: Normal Breath Sounds, No Rales, No Rhonchi, No Wheezing, Other ( exam limited by habitus) Extremity: Tenderness (right thigh), Swelling, Other (marked lymphedema bilaterally, no erythema noted) Neurological/Psych: Oriented x3, Normal Speech, Normal Cognition ED Course And Treatment - Laboratory Results Result Diagrams: 02/04/18 18:35 02/04/18 18:35 ECG: Interpreted By Me, Viewed By Me ECG Rhythm: Sinus Rhythm ECG Interpretation: No Changes From Prior (11/23/17) Rate From EC (BPM) O2 Sat by Pulse Oximetry: 96 (RA) Pulse Ox Interpretation: Normal Medical Decision Making Medical Decision Making: PLAN: * CXR * EKG * Labs * Aspirin PO NOTE: * 1848 - Called Dr. Mota 2x and left message with the service. * 185 - Spoke to Dr. Suzie Marroquin who is covering for Dr. Mota, will dialyze tomorrow if no electrolyte abnormalities * [address] Alegre, admit to er service, will give iv clinda * * [address] Corona; will tx for hyperkalemia, medications ordered and pt to got for hd tonight. Disposition Discussed With : Ivet Alegre Doctor Will See Patient In The: Hospital - Disposition Disposition Time: 19:15 Condition: GOOD Forms: [facility] (Colombian) - Clinical Impression Clinical Impression: Chest pain, Missed dialysis - PA / TEACHER ASSOCIATE / Resident Statement MD/DO has reviewed & agrees with the documentation as recorded. - Scribe Statement The provider has reviewed the documentation as recorded by the Scribe Eva Parnell All medical record entries made by the Scribe were at my direction and personally dictated by me. I have reviewed the chart and agree that the record accurately reflects my personal performance of the history, physical exam, medical decision making, and the department course for this patient. I have also personally directed, reviewed, and agree with the discharge instructions and disposition.
[2018-02-04] MEDS ORDERED: Acetaminophen-Codeine 300/30 mg Tab PO STA (18:40)
[2018-02-04] MEDS ORDERED: Acetaminophen-Codeine 300/30 mg Tab PO ONE (18:43)
[2018-02-04 18:45] LABS: BASO # 0.1 K/uL (0.0-0.2); BASO % 0.3 % (0.0-2.0); EOS # 0.2 K/uL (0.0-0.7); HEMOGLOBIN 9.3 g/dL (12.0-18.0); LYMPH # 1.2 K/uL (1.0-4.3); LYMPH % 6.4 % (20.0-40.0); MEAN CELL VOLUME 75.8 fL (80.0-94.0); MEAN CORPUSCULAR HEMOGLOBIN 24.5 pg (27.0-31.0); MEAN CORPUSCULAR HGB CONC 32.3 g/dL (33.0-37.0); MEAN PLATELET VOLUME 7.6 fL (7.2-11.7); MONO # 1.2 K/uL (0.0-0.8); MONO % 6.7 % (0.0-10.0); NEUT # 15.3 K/uL (1.8-7.0); NEUT % 85.6 % (50.0-75.0); PLATELET COUNT 299 K/uL (130-400); RBC 3.79 Mil/uL (4.40-5.90); RED CELL DISTRIBUTION WIDTH 16.5 % (11.5-14.5)
[2018-02-04 18:54] LABS: WHITE BLOOD COUNT 17.9 K/uL (4.8-10.8)
[2018-02-04] MEDS ORDERED: Clindamycin 600mg/50ml D5W 600 MG/50 ML VIAL IVPB SCH (19:15)
[2018-02-04 19:18] LABS: ALB/GLOB RATIO 0.8 (1.0-2.1); ALBUMIN 3.7 g/dL (3.5-5.0); ALT/SGPT 36 U/L (21-72); AST/SGOT 27 U/L (17-59); B-TYPE NATRIURETIC PEPTIDE 966 pg/mL (0-900); BLOOD UREA NITROGEN 112 mg/dL (9-20); CALCIUM 7.4 mg/dl (8.6-10.4); GFR AFRICAN-AMERICAN 4; GFR NON-AFRICAN AMERICAN 3
[2018-02-04] MEDS ORDERED: Sod Polystyrene Sulf 15 gm/60 ml Susp PO ONE (19:20)
[2018-02-04] MEDS ORDERED: Calcium Gluconate 4.65 mEq/10 ml Inj IVP ONE (19:21)
--- NOTE | 2018-02-04 19:24 | RAD ---
HISTORY: chest pain COMPARISON: Chest x-ray performed 11/22/17 TECHNIQUE: Chest, one view. FINDINGS: Examination limited by habitus. LUNGS: Basilar infiltrates/atelectasis. Please note that chest x-ray has limited sensitivity for the detection of pulmonary masses. PLEURA: No significant pleural effusion identified. No definite pneumothorax . CARDIOVASCULAR: Heart size appears top normal. OSSEOUS STRUCTURES: No acute osseous abnormality identified. VISUALIZED UPPER ABDOMEN: Unremarkable. OTHER FINDINGS: None. IMPRESSION: Mild bibasilar infiltrates/atelectasis.
[2018-02-04] MEDS ORDERED: (Novolin R) Insulin Human Regular 100 units/ml vial IV ONE (19:36)
[2018-02-04] MEDS ORDERED: Dextrose 50% SYRINGE Inj (50 ml) IV STA (19:37)
[2018-02-04] MEDS ORDERED: Albuterol 0.083% Inhal Sol (2.5 mg/3 mL) UD INH STA (19:37)
[2018-02-04] MEDS ORDERED: Sod Polystyrene Sulf 15 gm/60 ml Susp ONE (19:47)
[2018-02-04] MEDS ORDERED: Calcium Gluconate 4.65 mEq/10 ml Inj ONE (19:48)
[2018-02-04 20:49] LABS: EOSINOPHIL 1 % (0-4); LYMPHOCYTE 8 % (20-40); MONOCYTE 7 % (0-10); NEUTROPHIL 84 % (50-75); PLATELET ESTIMATE NORMAL (NORMAL); TOTAL CELLS COUNTED 100
[2018-02-04 20:50] LABS: ANISOCYTOSIS SLIGHT; OVALOCYTES SLIGHT; POIKILOCYTOSIS SLIGHT; TEARDROP CELLS SLIGHT
[2018-02-04] MEDS ORDERED: Morphine 30 mg SR Tab PO ONE (23:30)
[2018-02-05] MEDS ORDERED: Morphine 30 mg SR Tab PO ONE (01:15)
[2018-02-05 02:38] LABS: CK-MB 0.39 ng/mL (0.0-3.38)
--- NOTE | 2018-02-05 09:25 | CP.PCM.CON ---
History of Present Illness - History of Present Illness History of Present Illness: pt is a 52 YO morbidly obese male with HTN, ESRD On HD, lymphedema who presented to ER last night not feeling well. he mentions that he missed dialysis on wednesday and due to [place]. yesterday he felt like something was not right and came to er on labs, had potassium of 7.8 requiring emergent HD last night denies CP, SOB, palpitations, nausea or vomiting, no fevers or chills PMHx- HTN, ESRD on HD, lymphedema, morbid obesity PSHx- av fistula creation Social- denies smoking, alcohol or drug use Family- no family history of kidney disease Review of Systems - Review of Systems Review of Systems: as per HPI, other than that 10 pint ROS negative Past Patient History - Infectious Disease Hx of Infectious Diseases: None - Past Medical History & Family History Past Medical History?: Yes - Past Social History Smoking Status: Light Smoker < 10 Cigarettes Daily - CARDIAC Hx Hypertension: Yes Hx Peripheral Edema: Yes - PULMONARY Hx Bronchitis: Yes Hx Chronic Obstructive Pulmonary Disease (COPD): Yes - NEUROLOGICAL Hx Neurological Disorder: No - HEENT Hx HEENT Problems: No - RENAL Hx Chronic Kidney Disease: Yes - ENDOCRINE/METABOLIC Hx Diabetes Mellitus Type 2: Yes - HEMATOLOGICAL/ONCOLOGICAL Hx Anemia: Yes - INTEGUMENTARY Hx Dermatological Problems: Yes Hx Cellulitis: Yes (BILATERAL LEGS) - MUSCULOSKELETAL/RHEUMATOLOGICAL Hx Musculoskeletal Disorders: Yes Hx Falls: Yes Other/Comment: Morbid obesity - GASTROINTESTINAL Hx Gastrointestinal Disorders: Yes Hx Gastroesophageal Reflux: Yes - GENITOURINARY/GYNECOLOGICAL Hx Genitourinary Disorders: No - PSYCHIATRIC Hx Substance Use: No - SURGICAL HISTORY Hx Surgeries: Yes (Left arm AV Fistula) Hx Vascular Surgery: Yes ([facility]) - ANESTHESIA Hx Anesthesia: Yes Hx Anesthesia Reactions: No Hx Malignant Hyperthermia: No Meds Allergies/Adverse Reactions: Allergies Allergy/AdvReac Type Severity Reaction Status Date / Time Penicillins Allergy Verified 10/26/17 16:12 tazobactam [From Zosyn] Allergy Verified 02/04/18 17:27 piperacillin AdvReac ITCHING, Verified 10/22/17 03:21 SHORTNESS OF BREATH PET DANDER Allergy Severe CONGESTION Uncoded 10/22/17 03:21 - Medications Medications: Current Medications Aspirin (Aspirin Chewable) 81 mg PO DAILY [facility] Calcium Acetate (Phoslo) 667 mg PO TID [facility] Docusate Sodium (Colace) 100 mg PO BID [facility] Clindamycin Phosphate (Cleocin) 600 mg in 50 mls @ 100 mls/hr IVPB STAT [facility] PRN Reason: Protocol Clindamycin Phosphate 600 mg/ (Sodium Chloride) 54 mls @ 100 mls/hr IVPB Q8H [facility] PRN Reason: Protocol Last Admin: 02/05/18 02:39 Dose: 100 mls/hr Rosuvastatin Calcium (Crestor) 20 mg PO HS [facility] Physical Exam - Constitutional Appears: Non-toxic, Chronically Ill - Head Exam Head Exam: ATRAUMATIC, NORMOCEPHALIC - Eye Exam Eye Exam: EOMI, PERRL - ENT Exam ENT Exam: Mucous Membranes Moist - Neck Exam Neck exam: Positive for: Full Rom - Respiratory Exam Respiratory Exam: Clear to Auscultation Bilateral. absent: Rhonchi, Wheezes - Cardiovascular Exam Cardiovascular Exam: REGULAR RHYTHM, +S1, +S2 - GI/Abdominal Exam GI & Abdominal Exam: Normal Bowel Sounds, Soft. absent: Tenderness - Extremities Exam Extremities exam: Positive for: pedal edema Additional comments: chronic lymphedema - Neurological Exam Neurological exam: Alert, Oriented x3 - Psychiatric Exam Psychiatric exam: Normal Affect, Normal Mood - Skin Skin Exam: Intact, Normal Color Results - Vital Signs Recent Vital Signs: Last Vital Signs Temp 98.5 F 02/05/18 07:00 Pulse 75 02/05/18 07:00 Resp 20 02/05/18 07:00 BP 94/57 L 02/05/18 07:00 Pulse Ox 95 02/05/18 08:09 - Labs Result Diagrams: 02/04/18 18:35 02/04/18 18:35 Labs: Laboratory Results - last 24 hr 02/04/18 02/04/18 02/05/18 18:35 18:35 01:58 WBC 17.9 H D RBC 3.79 L Hgb 9.3 L Hct 28.7 L MCV 75.8 L MCH 24.5 L MCHC 32.3 L RDW 16.5 H Plt Count 299 MPV 7.6 Neut % (Auto) 85.6 H Lymph % (Auto) 6.4 L [place] % (Auto) 6.7 Eos % (Auto) 1.0 Baso % (Auto) 0.3 Neut # (Auto) 15.3 H Lymph # (Auto) 1.2 [place] # (Auto) 1.2 H Eos # (Auto) 0.2 Baso # (Auto) 0.1 Neutrophils % (Manual) 84 H Lymphocytes % (Manual) 8 L Monocytes % (Manual) 7 Eosinophils % (Manual) 1 Platelet Estimate Normal Poikilocytosis (manual Slight Anisocytosis (manual) Slight Tear Drop Cells Slight Ovalocytes Slight Sodium 135 Potassium 7.9 H* D Chloride 94 L Carbon Dioxide 21 L Anion Gap 28 H BUN 112 H* D Creatinine 16.5 H* D Est GFR ( Amer) 4 Est GFR (Non-Af Amer) 3 Random Glucose 80 Calcium 7.4 L Total Bilirubin 0.7 AST 27 ALT 36 Alkaline Phosphatase 145 H D Total Creatine Kinase 60 CK-MB (Mass) 0.39 Troponin I < 0.0120 < 0.0120 NT-Pro-B Natriuret Pep 966 H Total Protein 8.2 Albumin 3.7 Globulin 4.5 H Albumin/Globulin Ratio 0.8 L Assessment & Plan (1) Hyperkalemia Status: Acute (2) Hypertension Status: Acute (3) Missed dialysis Status: Acute (4) ESRD on hemodialysis Status: Chronic (5) Lymphedema of lower extremity Status: Chronic - Assessment and Plan (Free Text) Plan: HD again today compliance with outpt HD emphasized resume home meds stable renal bhatti for discharge after HD
[2018-02-05 11:42] LABS: EOS # 0.2 K/uL (0.0-0.7); EOS % 1.5 % (0.0-4.0); LYMPH # 1.1 K/uL (1.0-4.3); MEAN CORPUSCULAR HGB CONC 32.6 g/dL (33.0-37.0); NEUT % 82.6 % (50.0-75.0)
[2018-02-05 11:44] LABS: BASO % 0.3 % (0.0-2.0); HEMOGLOBIN 8.9 g/dL (12.0-18.0); MEAN CELL VOLUME 75.9 fL (80.0-94.0); MEAN CORPUSCULAR HEMOGLOBIN 24.7 pg (27.0-31.0); MEAN PLATELET VOLUME 7.8 fL (7.2-11.7); MONO # 1.1 K/uL (0.0-0.8); MONO % 7.6 % (0.0-10.0); NEUT # 11.8 K/uL (1.8-7.0); PLATELET COUNT 246 K/uL (130-400); RBC 3.61 Mil/uL (4.40-5.90); RED CELL DISTRIBUTION WIDTH 16.8 % (11.5-14.5); WHITE BLOOD COUNT 14.3 K/uL (4.8-10.8)
[2018-02-05 11:49] LABS: ALB/GLOB RATIO 0.8 (1.0-2.1); ALBUMIN 3.2 g/dL (3.5-5.0); ALT/SGPT 37 U/L (21-72); AST/SGOT 27 U/L (17-59); BLOOD UREA NITROGEN 90 mg/dL (9-20); CALCIUM 7.5 mg/dl (8.6-10.4); GFR AFRICAN-AMERICAN 5; GFR NON-AFRICAN AMERICAN 4
[2018-02-05 12:05] LABS: EOSINOPHIL 1 % (0-4); LYMPHOCYTE 5 % (20-40); MONOCYTE 12 % (0-10); NEUTROPHIL 82 % (50-75); PLATELET ESTIMATE NORMAL (NORMAL); TOTAL CELLS COUNTED 100
[2018-02-05 12:06] LABS: ANISOCYTOSIS SLIGHT; HYPOCHROMIC SLIGHT; POLYCHROMIC SLIGHT
[2018-02-05 12:07] LABS: LARGE PLATELETS PRESENT; TARGET CELLS SLIGHT; TOXIC GRANULATION PRESENT
[2018-02-05 12:11] LABS: CK-MB 0.26 ng/mL (0.0-3.38)
[2018-02-05] MEDS: guaiFENesin 100 mg/5 ml Syrup UD PO PRN (13:28)
--- NOTE | 2018-02-05 14:04 | CP.PCM.CON ---
History of Present Illness - History of Present Illness History of Present Illness: the pt is a 52 year old man, on dialysis, morbidly obese, who did not feel right , also had chest pressure lasting for mostly three days, worse moving a certain way and taking a deep breath. Feels better now TNI are negative and ecg was normal. K was severely high, pt had emergency treatment. K has come down, and there are no st changes, Echo done 10/25: I reviewed, normal LVEF, dilated RV. Review of Systems - Review of Systems All systems: reviewed and no additional remarkable complaints except (as above) Past Patient History - Infectious Disease Hx of Infectious Diseases: None - Past Medical History & Family History Past Medical History?: Yes - Past Social History Smoking Status: Light Smoker < 10 Cigarettes Daily - CARDIAC Hx Hypertension: Yes Hx Peripheral Edema: Yes - PULMONARY Hx Bronchitis: Yes Hx Chronic Obstructive Pulmonary Disease (COPD): Yes - NEUROLOGICAL Hx Neurological Disorder: No - HEENT Hx HEENT Problems: No - RENAL Hx Chronic Kidney Disease: Yes - ENDOCRINE/METABOLIC Hx Diabetes Mellitus Type 2: Yes - HEMATOLOGICAL/ONCOLOGICAL Hx Anemia: Yes - INTEGUMENTARY Hx Dermatological Problems: Yes Hx Cellulitis: Yes (BILATERAL LEGS) - MUSCULOSKELETAL/RHEUMATOLOGICAL Hx Musculoskeletal Disorders: Yes Hx Falls: Yes Other/Comment: Morbid obesity - GASTROINTESTINAL Hx Gastrointestinal Disorders: Yes Hx Gastroesophageal Reflux: Yes - GENITOURINARY/GYNECOLOGICAL Hx Genitourinary Disorders: No - PSYCHIATRIC Hx Substance Use: No - SURGICAL HISTORY Hx Surgeries: Yes (Left arm AV Fistula) Hx Vascular Surgery: Yes ([facility]) - ANESTHESIA Hx Anesthesia: Yes Hx Anesthesia Reactions: No Hx Malignant Hyperthermia: No Meds Allergies/Adverse Reactions: Allergies Allergy/AdvReac Type Severity Reaction Status Date / Time Penicillins Allergy Verified 10/26/17 16:12 tazobactam [From Zosyn] Allergy Verified 02/04/18 17:27 piperacillin AdvReac ITCHING, Verified 10/22/17 03:21 SHORTNESS OF BREATH PET DANDER Allergy Severe CONGESTION Uncoded 10/22/17 03:21 - Medications Medications: Current Medications Aspirin (Aspirin Chewable) 81 mg PO DAILY [facility] Last Admin: 02/05/18 10:25 Dose: 81 mg Calcium Acetate (Phoslo) 667 mg PO TID [facility] Last Admin: 02/05/18 13:28 Dose: 667 mg Docusate Sodium (Colace) 100 mg PO BID [facility] Last Admin: 02/05/18 10:25 Dose: 100 mg Guaifenesin (Robitussin) 100 mg PO Q4H PRN PRN Reason: Cough Last Admin: 02/05/18 13:28 Dose: 100 mg Heparin Sodium (Porcine) (Heparin) 5,000 units SC Q12 [facility] Last Admin: 02/05/18 10:26 Dose: 5,000 units Clindamycin Phosphate (Cleocin) 600 mg in 50 mls @ 100 mls/hr IVPB STAT [facility] PRN Reason: Protocol Clindamycin Phosphate 600 mg/ (Sodium Chloride) 54 mls @ 100 mls/hr IVPB Q8H [facility] PRN Reason: Protocol Last Admin: 02/05/18 10:30 Dose: 100 mls/hr Rosuvastatin Calcium (Crestor) 20 mg PO [facility] Physical Exam - Constitutional Appears: Older Than Stated Age - Head Exam Head Exam: ATRAUMATIC - Eye Exam Eye Exam: EOMI - ENT Exam ENT Exam: Mucous Membranes Dry - Neck Exam Neck exam: Positive for: Full Rom - Respiratory Exam Respiratory Exam: Clear to Auscultation Bilateral - Cardiovascular Exam Cardiovascular Exam: Bradycardia - Extremities Exam Extremities exam: Positive for: pedal edema (severe. +4, with induration) - Back Exam Back exam: NORMAL INSPECTION - Neurological Exam Neurological exam: Alert, CN II-XII Intact, Oriented x3 - Psychiatric Exam Psychiatric exam: Normal Affect, Normal Mood - Skin Skin Exam: Normal Color Results - Vital Signs Recent Vital Signs: Last Vital Signs Temp 98.5 F 02/05/18 07:00 Pulse 75 02/05/18 07:00 Resp 20 02/05/18 07:00 BP 94/57 L 02/05/18 07:00 Pulse Ox 95 02/05/18 08:09 - Labs Result Diagrams: 02/05/18 11:20 02/05/18 11:20 Labs: Laboratory Results - last 24 hr 02/04/18 02/04/18 02/05/18 18:35 18:35 01:58 WBC 17.9 H D RBC 3.79 L Hgb 9.3 L Hct 28.7 L MCV 75.8 L MCH 24.5 L MCHC 32.3 L RDW 16.5 H Plt Count 299 MPV 7.6 Neut % (Auto) 85.6 H Lymph % (Auto) 6.[address] [place] % (Auto) 6.7 Eos % (Auto) 1.0 Baso % (Auto) 0.3 Neut # (Auto) 15.3 H Lymph # (Auto) 1.2 [place] # (Auto) 1.2 H Eos # (Auto) 0.2 Baso # (Auto) 0.1 Neutrophils % (Manual) 84 H Lymphocytes % (Manual) 8 L Monocytes % (Manual) 7 Eosinophils % (Manual) 1 Toxic Granulation Platelet Estimate Normal Large Platelets Polychromasia Hypochromasia (manual) Poikilocytosis (manual Slight Anisocytosis (manual) Slight Target Cells Tear Drop Cells Slight Ovalocytes Slight Sodium 135 Potassium 7.9 H* D Chloride 94 L Carbon Dioxide 21 L Anion Gap 28 H BUN 112 H* D Creatinine 16.5 H* D Est GFR ( Amer) 4 Est GFR (Non-Af Amer) 3 Random Glucose 80 Calcium 7.4 L Total Bilirubin 0.7 AST 27 ALT 36 Alkaline Phosphatase 145 H D Total Creatine Kinase 60 CK-MB (Mass) 0.39 Troponin I < 0.0120 < 0.0120 NT-Pro-B Natriuret Pep 966 H Total Protein 8.2 Albumin 3.7 Globulin 4.5 H Albumin/Globulin Ratio 0.8 L 02/05/18 02/05/18 11:20 11:20 WBC 14.3 H RBC 3.61 L Hgb 8.9 L Hct 27.4 L MCV 75.9 L MCH 24.7 L MCHC 32.6 L RDW 16.8 H Plt Count 246 MPV 7.8 Neut % (Auto) 82.6 H Lymph % (Auto) 8.[address] % (Auto) 7.6 Eos % (Auto) 1.5 Baso % (Auto) 0.3 Neut # (Auto) 11.8 H Lymph # (Auto) 1.1 [place] # (Auto) 1.1 H Eos # (Auto) 0.2 Baso # (Auto) 0.0 Neutrophils % (Manual) 82 H Lymphocytes % (Manual) 5 L Monocytes % (Manual) 12 H Eosinophils % (Manual) 1 Toxic Granulation Present Platelet Estimate Normal Large Platelets Present Polychromasia Slight Hypochromasia (manual) Slight Poikilocytosis (manual Anisocytosis (manual) Slight Target Cells Slight Tear Drop Cells Ovalocytes Sodium 139 Potassium 5.2 Chloride 96 L Carbon Dioxide 24 Anion Gap 25 H BUN 90 H Creatinine 13.3 H* Est GFR ( Amer) 5 Est GFR (Non-Af Amer) 4 Random Glucose 97 Calcium 7.5 L Total Bilirubin 0.6 AST 27 ALT 37 Alkaline Phosphatase 132 H Total Creatine Kinase 48 L CK-MB (Mass) 0.26 Troponin I < 0.0120 NT-Pro-B Natriuret Pep Total Protein 7.5 Albumin 3.2 L Globulin 4.2 H Albumin/Globulin Ratio 0.8 L - EKG Data EKG Interpreted by: Myself EKG shows normal: Sinus rhythm (normal (low p wave voltage: not junctional)) Assessment & Plan - Assessment and Plan (Free Text) Assessment: 1. Pt 's chest pain is very atypical, with normal TNI. ECg is normal , no st changes, patient reassured. 2. pt will try to follow a lo k diet. No arrhythmias noted with hyperkalemia.
--- NOTE | 2018-02-05 19:33 | CP.PCM.HP ---
History of Present Illness - History of Present Illness History of Present Illness: cc; ,Missed dialysys Pt is a 52 year old male with PMhx for HD, morbid obsity, lymphadema and multiple admissions for cellulitis or missing dialysis. PT now co missing dialysis due to snow. Had some chest pain , but evaluted by cards and not felt to be cardiac in nature. Present on Admission - Present on Admission Any Indicators Present on Admission: No Review of Systems - Constitutional Constitutional: absent: Anorexia, Chills, Malaise - EENT Eyes: absent: Blurred Vision - Cardiovascular Cardiovascular: Chest Pain - Respiratory Respiratory: absent: Cough, Dyspnea, Hemoptysis Past Patient History - Infectious Disease Hx of Infectious Diseases: None - Past Medical History & Family History Past Medical History?: Yes - Past Social History Smoking Status: Light Smoker < 10 Cigarettes Daily - CARDIAC Hx Hypertension: Yes Hx Peripheral Edema: Yes - PULMONARY Hx Bronchitis: Yes Hx Chronic Obstructive Pulmonary Disease (COPD): Yes - NEUROLOGICAL Hx Neurological Disorder: No - HEENT Hx HEENT Problems: No - RENAL Hx Chronic Kidney Disease: Yes - ENDOCRINE/METABOLIC Hx Diabetes Mellitus Type 2: Yes - HEMATOLOGICAL/ONCOLOGICAL Hx Anemia: Yes - INTEGUMENTARY Hx Dermatological Problems: Yes Hx Cellulitis: Yes (BILATERAL LEGS) - MUSCULOSKELETAL/RHEUMATOLOGICAL Hx Musculoskeletal Disorders: Yes Hx Falls: Yes Other/Comment: Morbid obesity - GASTROINTESTINAL Hx Gastrointestinal Disorders: Yes Hx Gastroesophageal Reflux: Yes - GENITOURINARY/GYNECOLOGICAL Hx Genitourinary Disorders: No - PSYCHIATRIC Hx Substance Use: No - SURGICAL HISTORY Hx Surgeries: Yes (Left arm AV Fistula) Hx Vascular Surgery: Yes ([facility]) - ANESTHESIA Hx Anesthesia: Yes Hx Anesthesia Reactions: No Hx Malignant Hyperthermia: No Meds Allergies/Adverse Reactions: Allergies Allergy/AdvReac Type Severity Reaction Status Date / Time Penicillins Allergy Verified 10/26/17 16:12 tazobactam [From Zosyn] Allergy Verified 02/04/18 17:27 piperacillin AdvReac ITCHING, Verified 10/22/17 03:21 SHORTNESS OF BREATH PET DANDER Allergy Severe CONGESTION Uncoded 10/22/17 03:21 Physical Exam - Eye Exam Eye Exam: Normal appearance - ENT Exam ENT Exam: Mucous Membranes Moist - Respiratory Exam Respiratory Exam: Clear to Auscultation Bilateral - Cardiovascular Exam Cardiovascular Exam: REGULAR RHYTHM, RRR, +S1. absent: JVD - Back Exam Back exam: tenderness (chronic lymphadema. some redness and tenderness in both legs were most swollen, THis is base line) Results - Vital Signs Recent Vital Signs: Last Vital Signs Temp 98.4 F 02/05/18 16:00 Pulse 80 02/05/18 16:00 Resp 20 02/05/18 16:00 BP 118/76 02/05/18 16:00 Pulse Ox 96 02/05/18 16:00 - Labs Result Diagrams: 02/05/18 11:20 02/05/18 11:20 Labs: Laboratory Results - last 24 hr 02/04/18 02/05/18 02/05/18 18:35 01:58 11:20 WBC 14.3 H RBC 3.61 L Hgb 8.9 L Hct 27.4 L MCV 75.9 L MCH 24.7 L MCHC 32.6 L RDW 16.8 H Plt Count 246 MPV 7.8 Neut % (Auto) 82.6 H Lymph % (Auto) 8.0 L [place] % (Auto) 7.6 Eos % (Auto) 1.5 Baso % (Auto) 0.3 Neut # (Auto) 11.8 H Lymph # (Auto) 1.1 [place] # (Auto) 1.1 H Eos # (Auto) 0.2 Baso # (Auto) 0.0 Neutrophils % (Manual) 84 H 82 H Lymphocytes % (Manual) 8 L 5 L Monocytes % (Manual) 7 12 H Eosinophils % (Manual) 1 1 Toxic Granulation Present Platelet Estimate Normal Normal Large Platelets Present Polychromasia Slight Hypochromasia (manual) Slight Poikilocytosis (manual Slight Anisocytosis (manual) Slight Slight Target Cells Slight Tear Drop Cells Slight Ovalocytes Slight Sodium Potassium Chloride Carbon Dioxide Anion Gap BUN Creatinine Est GFR ( Amer) Est GFR (Non-Af Amer) Random Glucose Calcium Total Bilirubin AST ALT Alkaline Phosphatase Total Creatine Kinase 60 CK-MB (Mass) 0.39 Troponin I < 0.0120 Total Protein Albumin Globulin Albumin/Globulin Ratio 02/05/18 11:20 WBC RBC Hgb Hct MCV MCH MCHC RDW Plt Count MPV Neut % (Auto) Lymph % (Auto) [place] % (Auto) Eos % (Auto) Baso % (Auto) Neut # (Auto) Lymph # (Auto) [place] # (Auto) Eos # (Auto) Baso # (Auto) Neutrophils % (Manual) Lymphocytes % (Manual) Monocytes % (Manual) Eosinophils % (Manual) Toxic Granulation Platelet Estimate Large Platelets Polychromasia Hypochromasia (manual) Poikilocytosis (manual Anisocytosis (manual) Target Cells Tear Drop Cells Ovalocytes Sodium 139 Potassium 5.2 Chloride 96 L Carbon Dioxide 24 Anion Gap 25 H BUN 90 H Creatinine 13.3 H* Est GFR ( Amer) 5 Est GFR (Non-Af Amer) 4 Random Glucose 97 Calcium 7.5 L Total Bilirubin 0.6 AST 27 ALT 37 Alkaline Phosphatase 132 H Total Creatine Kinase 48 L CK-MB (Mass) 0.26 Troponin I < 0.0120 Total Protein 7.5 Albumin 3.2 L Globulin 4.2 H Albumin/Globulin Ratio 0.8 L Assessment & Plan - Assessment and Plan (Free Text) Assessment: Dialysis ; being done chronic lyphadema and cellulits resummed clinda wbc down pain management appreciate cardiac input Home soon
[2018-02-06] MEDS: guaiFENesin 100 mg/5 ml Syrup UD PO PRN (08:06)
[2018-02-07] MEDS: guaiFENesin 100 mg/5 ml Syrup UD PO PRN (02:01)
[2018-02-07] MEDS ORDERED: Pneumococcal 23-Valent Vaccine IM ONE (11:53)
[2018-02-07] MEDS ORDERED: Influenza Vaccine 60 mcg/0.5 mL SYR (4YR UP) IM ONE (12:06)
--- NOTE | 2018-02-07 14:09 | CP.PCM.CON ---
History of Present Illness - History of Present Illness History of Present Illness: Feels better repeat chemistries not done stable dialysis 02/05 no fevers, LEs about same no n, v, f, c, SOB Review of Systems - Constitutional Constitutional: Malaise, Weakness - EENT Eyes: absent: As Per HPI, Blind Spots, Blurred Vision, Change in Vision, Decreased Night Vision, Diplopia, Discharge, Dry Eye, Exophthalmos, Floaters, Irritation, Itchy Eyes, Loss of Peripheral Vision, Pain, Photophobia, Requires Corrective Lenses, Sees Flashes, Spots in Vision, Tunnel Vision, Other Visual Disturbances, Loss of Vision, Other Ears: absent: As Per HPI, Decreased Hearing, Ear Discharge, Ear Pain, Tinnitus, Abnormal Hearing, Disequilibrium, Dizziness, Other Nose/Mouth/Throat: absent: As Per HPI, Epistaxis, Nasal Congestion, Nasal Discharge, Nasal Obstruction, Nasal Trauma, Nose Pain, Post Nasal Drip, Sinus Pain, Sinus Pressure, Bleeding Gums, Change in Voice, Dental Pain, Dry Mouth, Dysphagia, Halitosis, Hoarsness, Lip Swelling, Mouth Lesions, Mouth Pain, Odynophagia, Sore Throat, Throat Swelling, Tongue Swelling, Facial Pain, Neck Pain, Neck Mass, Other - Cardiovascular Cardiovascular: Dyspnea on Exertion, Leg Edema - Respiratory Respiratory: Cough - Gastrointestinal Gastrointestinal: Dysphagia, Nausea Past Patient History - Infectious Disease Hx of Infectious Diseases: None - Past Medical History & Family History Past Medical History?: Yes - Past Social History Smoking Status: Current Some Days Smoker - CARDIAC Hx Peripheral Edema: Yes - PULMONARY Hx Asthma: Yes Hx Bronchitis: Yes Hx Chronic Obstructive Pulmonary Disease (COPD): Yes - NEUROLOGICAL Hx Neurological Disorder: No - HEENT Hx HEENT Problems: No - RENAL Date of Last Dialysis Treatment: 02/05/18 - ENDOCRINE/METABOLIC Hx Diabetes Mellitus Type 2: Yes - HEMATOLOGICAL/ONCOLOGICAL Hx Anemia: Yes - INTEGUMENTARY Hx Dermatological Problems: Yes Hx Cellulitis: Yes (BILATERAL LEGS) - MUSCULOSKELETAL/RHEUMATOLOGICAL Hx Musculoskeletal Disorders: Yes Hx Falls: Yes Other/Comment: Morbid obesity - GASTROINTESTINAL Hx Gastrointestinal Disorders: Yes Hx Gastroesophageal Reflux: Yes - GENITOURINARY/GYNECOLOGICAL Hx Genitourinary Disorders: No - PSYCHIATRIC Hx Substance Use: No - SURGICAL HISTORY Hx Surgeries: Yes (Left arm AV Fistula) Hx Vascular Surgery: Yes ([facility]) - ANESTHESIA Hx Anesthesia: Yes Hx Anesthesia Reactions: No Hx Malignant Hyperthermia: No Meds Allergies/Adverse Reactions: Allergies Allergy/AdvReac Type Severity Reaction Status Date / Time Penicillins Allergy Verified 10/26/17 16:12 tazobactam [From Zosyn] Allergy Verified 02/04/18 17:27 piperacillin AdvReac ITCHING, Verified 10/22/17 03:21 SHORTNESS OF BREATH PET DANDER Allergy Severe CONGESTION Uncoded 10/22/17 03:21 - Medications Medications: Current Medications Aspirin (Aspirin Chewable) 81 mg PO DAILY [facility] Last Admin: 02/07/18 09:26 Dose: 81 mg Calcium Acetate (Phoslo) 667 mg PO TID [facility] Last Admin: 02/07/18 13:45 Dose: 667 mg Docusate Sodium (Colace) 100 mg PO BID [facility] Last Admin: 02/07/18 09:26 Dose: 100 mg Guaifenesin (Robitussin) 100 mg PO Q4H PRN PRN Reason: Cough Last Admin: 02/07/18 02:01 Dose: 100 mg Heparin Sodium (Porcine) (Heparin) 5,000 units SC Q12 [facility] Last Admin: 02/07/18 09:26 Dose: 5,000 units Clindamycin Phosphate (Cleocin) 600 mg in 50 mls @ 100 mls/hr IVPB STAT [facility] PRN Reason: Protocol Clindamycin Phosphate 600 mg/ (Sodium Chloride) 54 mls @ 100 mls/hr IVPB Q8H [facility] PRN Reason: Protocol Last Admin: 02/07/18 12:08 Dose: 100 mls/hr Rosuvastatin Calcium (Crestor) 20 mg PO HS [facility] Last Admin: 02/06/18 21:46 Dose: 20 mg Tramadol HCl (Ultram) 50 mg PO Q8 PRN PRN Reason: Pain, severe (8-10) Last Admin: 02/07/18 09:33 Dose: 50 mg Physical Exam - Constitutional Appears: No Acute Distress, Chronically Ill - Eye Exam Eye Exam: EOMI, Normal appearance - Neck Exam Neck exam: Positive for: Normal Inspection. Negative for: Tenderness - Respiratory Exam Respiratory Exam: Clear to Auscultation Bilateral, NORMAL BREATHING PATTERN - Cardiovascular Exam Cardiovascular Exam: REGULAR RHYTHM, +S1 - GI/Abdominal Exam GI & Abdominal Exam: Soft. absent: Tenderness - Extremities Exam Extremities exam: Positive for: pedal edema, tenderness - Neurological Exam Neurological exam: CN II-XII Intact, Oriented x3 - Skin Skin Exam: Dry, Warm Results - Vital Signs Recent Vital Signs: Last Vital Signs Temp 98.8 F 02/07/18 07:00 Pulse 84 02/07/18 07:00 Resp 20 02/07/18 11:33 BP 95/62 L 02/07/18 07:00 Pulse Ox 95 02/07/18 07:00 - Labs Result Diagrams: 02/05/18 11:20 02/05/18 11:20 Assessment & Plan (1) Cellulitis Status: Acute - Assessment and Plan (Free Text) Plan: dialysis in AM
[2018-02-07 14:21] LABS: BASO # 0.1 K/uL (0.0-0.2); BASO % 0.3 % (0.0-2.0); EOS # 0.2 K/uL (0.0-0.7); EOS % 1.1 % (0.0-4.0); HEMOGLOBIN 8.5 g/dL (12.0-18.0); LYMPH # 1.2 K/uL (1.0-4.3); LYMPH % 5.4 % (20.0-40.0); MEAN CELL VOLUME 75.9 fL (80.0-94.0); MEAN CORPUSCULAR HEMOGLOBIN 24.2 pg (27.0-31.0); MEAN CORPUSCULAR HGB CONC 31.8 g/dL (33.0-37.0); MEAN PLATELET VOLUME 7.8 fL (7.2-11.7); MONO # 1.4 K/uL (0.0-0.8); MONO % 6.1 % (0.0-10.0); NEUT # 19.6 K/uL (1.8-7.0); NEUT % 87.1 % (50.0-75.0); PLATELET COUNT 322 K/uL (130-400); RED CELL DISTRIBUTION WIDTH 16.6 % (11.5-14.5)
[2018-02-07 14:22] LABS: WHITE BLOOD COUNT 22.5 K/uL (4.8-10.8)
[2018-02-07 14:38] LABS: ALB/GLOB RATIO 0.8 (1.0-2.1); ALBUMIN 3.2 g/dL (3.5-5.0); CALCIUM 7.4 mg/dl (8.6-10.4)
[2018-02-07 14:50] LABS: ANISOCYTOSIS SLIGHT; HYPOCHROMIC SLIGHT; LYMPHOCYTE 10 % (20-40); MONOCYTE 5 % (0-10); NEUTROPHIL 85 % (50-75); PLATELET ESTIMATE NORMAL (NORMAL); TOTAL CELLS COUNTED 100
[2018-02-07 14:51] LABS: MICROCYTOSIS SLIGHT
[2018-02-07 14:52] LABS: POLYCHROMIC SLIGHT
[2018-02-07] MEDS ORDERED: Sod Polystyrene Sulf 15 gm/60 ml Susp PO ONE (15:57)
[2018-02-07] MEDS ORDERED: Vancomycin 1 GM in Sodium Chloride 0.9% 200 ML IVPB SCH (16:00)
--- NOTE | 2018-02-07 16:40 | CARD ---
APPROVED REPORT EKG Measurement Heart [id number] <Conclusion> Accelerated Junctional rhythm Nonspecific ST abnormality Abnormal ECG
--- NOTE | 2018-02-07 17:38 | CP.PCM.PN ---
Subjective - Date & Time of Evaluation Date of Evaluation: 02/07/18 Time of Evaluation: 17:38 - Subjective Subjective: Pt reports more pain on the right leg. no fever but states he feels "off" Objective - Vital Signs/Intake and Output Vital Signs (last 24 hours): Temp Pulse Resp BP Pulse Ox 98.8 F 82 20 102/62 95 02/07/18 15:00 02/07/18 15:00 02/07/18 15:00 02/07/18 15:00 02/07/18 15:00 Intake and Output: 02/07/18 02/07/18 06:59 18:59 Intake Total 370 Balance 370 - Medications Medications: Current Medications Aspirin (Aspirin Chewable) 81 mg PO DAILY [facility] Last Admin: 02/07/18 09:26 Dose: 81 mg Calcium Acetate (Phoslo) 667 mg PO TID [facility] Last Admin: 02/07/18 13:45 Dose: 667 mg Docusate Sodium (Colace) 100 mg PO BID [facility] Last Admin: 02/07/18 09:26 Dose: 100 mg Guaifenesin (Robitussin) 100 mg PO Q4H PRN PRN Reason: Cough Last Admin: 02/07/18 02:01 Dose: 100 mg Heparin Sodium (Porcine) (Heparin) 5,000 units SC Q12 [facility] Last Admin: 02/07/18 09:26 Dose: 5,000 units Clindamycin Phosphate (Cleocin) 600 mg in 50 mls @ 100 mls/hr IVPB STAT [facility] PRN Reason: Protocol Clindamycin Phosphate 600 mg/ (Sodium Chloride) 54 mls @ 100 mls/hr IVPB Q8H [facility] PRN Reason: Protocol Last Admin: 02/07/18 12:08 Dose: 100 mls/hr Vancomycin HCl 1 gm/ Sodium (Chloride) 200 mls @ 166.7 mls/hr IVPB Q24H [facility] PRN Reason: Protocol Stop: 02/11/18 16:01 Last Admin: 02/07/18 16:46 Dose: 166.7 mls/hr Rosuvastatin Calcium (Crestor) 20 mg PO HS [facility] Last Admin: 02/06/18 21:46 Dose: 20 mg Tramadol HCl (Ultram) 50 mg PO Q4H PRN PRN Reason: Pain, severe (8-10) - Labs Labs: 02/07/18 13:58 02/07/18 13:58 - Constitutional Appears: No Acute Distress - Eye Exam Eye Exam: Normal appearance - ENT Exam ENT Exam: Mucous Membranes Moist - Respiratory Exam Respiratory Exam: absent: Chest Wall Tenderness - Cardiovascular Exam Cardiovascular Exam: REGULAR RHYTHM, RRR. absent: JVD - GI/Abdominal Exam GI & Abdominal Exam: Soft, Normal Bowel Sounds. absent: Tenderness (right leg swollen in thigh, tenderess appears to be tighter) Assessment and Plan - Assessment and Plan (Free Text) Assessment: cellulitis chronic lymphadema wbc higher today ID consult blood cultures vanco pending ID ct of leg adjusted pain meds
--- NOTE | 2018-02-07 20:28 | CARD ---
APPROVED REPORT EKG Measurement Heart [id number] <Conclusion> Normal Sinus Technically poor, cannot evaluate leads V3-V6. ThHe remainder of the ECG is normal. Abnormal ECG
[2018-02-08 07:24] LABS: BASO # 0.1 K/uL (0.0-0.2); BASO % 0.4 % (0.0-2.0); EOS # 0.2 K/uL (0.0-0.7); EOS % 0.6 % (0.0-4.0); HEMOGLOBIN 9.2 g/dL (12.0-18.0); LYMPH % 3.9 % (20.0-40.0); MEAN CORPUSCULAR HEMOGLOBIN 25.1 pg (27.0-31.0); MEAN CORPUSCULAR HGB CONC 33.1 g/dL (33.0-37.0); MEAN PLATELET VOLUME 7.7 fL (7.2-11.7); MONO # 1.9 K/uL (0.0-0.8); MONO % 7.7 % (0.0-10.0); NEUT # 21.6 K/uL (1.8-7.0); NEUT % 87.4 % (50.0-75.0); PLATELET COUNT 390 K/uL (130-400); RBC 3.68 Mil/uL (4.40-5.90); RED CELL DISTRIBUTION WIDTH 16.9 % (11.5-14.5); WHITE BLOOD COUNT 24.7 K/uL (4.8-10.8)
[2018-02-08 08:14] LABS: ALB/GLOB RATIO 0.7 (1.0-2.1); ALBUMIN 3.4 g/dL (3.5-5.0); CALCIUM 7.5 mg/dl (8.6-10.4)
[2018-02-08] MEDS ORDERED: Epoetin Alfa Dialysis 3000 UNIT/ML Inj IV SCH (10:00)
[2018-02-08 10:04] LABS: BASOPHIL 1 % (0-2); LYMPHOCYTE 3 % (20-40); MONOCYTE 8 % (0-10); NEUTROPHIL 88 % (50-75); PLATELET ESTIMATE NORMAL (NORMAL); TOTAL CELLS COUNTED 100
[2018-02-08 10:05] LABS: ANISOCYTOSIS SLIGHT; HYPOCHROMIC SLIGHT; OVALOCYTES SLIGHT; POIKILOCYTOSIS SLIGHT; TARGET CELLS SLIGHT; TEARDROP CELLS SLIGHT
[2018-02-08] MEDS ORDERED: Iodixanol 320 MG/ML 100 ML BOTTLE IV ONE (10:18)
--- NOTE | 2018-02-08 10:59 | CP.PCM.PN ---
Subjective - Date & Time of Evaluation Date of Evaluation: 02/08/18 Time of Evaluation: 11:32 - Subjective Subjective: PT is having ct of legs with and without iv contrast pt has had increasing wbc and right thigh has been more swollen and tender Objective - Vital Signs/Intake and Output Vital Signs (last 24 hours): Temp Pulse Resp BP Pulse Ox 98.7 F 78 20 102/66 93 L 02/08/18 07:00 02/08/18 09:00 02/08/18 07:00 02/08/18 07:00 02/08/18 07:00 Intake and Output: 02/08/18 02/08/18 06:59 18:59 Intake Total 490 Balance 490 - Medications Medications: Current Medications Aspirin (Aspirin Chewable) 81 mg PO DAILY [facility] Last Admin: 02/08/18 09:06 Dose: 81 mg Calcium Acetate (Phoslo) 667 mg PO TID [facility] Last Admin: 02/08/18 09:06 Dose: 667 mg Docusate Sodium (Colace) 100 mg PO BID [facility] Last Admin: 02/08/18 09:06 Dose: 100 mg Guaifenesin (Robitussin) 100 mg PO Q4H PRN PRN Reason: Cough Last Admin: 02/07/18 02:01 Dose: 100 mg Heparin Sodium (Porcine) (Heparin) 5,000 units SC Q12 [facility] Last Admin: 02/08/18 09:05 Dose: 5,000 units Clindamycin Phosphate (Cleocin) 600 mg in 50 mls @ 100 mls/hr IVPB STAT [facility] PRN Reason: Protocol Clindamycin Phosphate 600 mg/ (Sodium Chloride) 54 mls @ 100 mls/hr IVPB Q8H [facility] PRN Reason: Protocol Last Admin: 02/08/18 03:08 Dose: 100 mls/hr Vancomycin HCl 1 gm/ Sodium (Chloride) 200 mls @ 166.7 mls/hr IVPB Q48H [facility] PRN Reason: Protocol Rosuvastatin Calcium (Crestor) 10 mg PO HS [facility] Tramadol HCl (Ultram) 50 mg PO Q4H PRN PRN Reason: Pain, severe (8-10) Last Admin: 02/08/18 03:18 Dose: 50 mg - Labs Labs: 02/08/18 07:12 02/08/18 07:12 - Constitutional Appears: Non-toxic - Eye Exam Eye Exam: Normal appearance - ENT Exam ENT Exam: Mucous Membranes Moist - Cardiovascular Exam Cardiovascular Exam: RRR, +S1, +S2. absent: JVD - GI/Abdominal Exam GI & Abdominal Exam: Normal Bowel Sounds - Extremities Exam Extremities Exam: Joint Swelling (right thigh tender and swollen) Assessment and Plan - Assessment and Plan (Free Text) Assessment: WBC increasing blood cultures negative so far no fever ID consulted ct of thigh with and without iv contrast HD later on today pain management HD
--- NOTE | 2018-02-08 12:41 | CT ---
PROCEDURE: CT right lower extremity HISTORY: cellulitis COMPARISON: Not available TECHNIQUE: 2.5 mm contiguous axial sections were acquired from the right iliac bone above the level of the hip, through the lower extremity and foot. The lateral aspect of the right buttock and thigh a could not be included in this examination due to patient body habitus. The examination was performed following the intravenous administration of 100 mL of Visipaque 320 Total exam DLP: 2444.[address] exam was performed using 1 or more of the following dose reduction techniques: Automated exposure control, adjustment of the mA and/or kV according to patient size, and/or use of iterative reconstruction technique. FINDINGS: There is extensive cutaneous thickening as well as heterogeneous increased attenuation of the subcutaneous fat seen about the perineum medial right thigh as well as posterior right thigh. This extends to involve the medial and posterior aspect of the knee and circumferentially about the tibia and fibula. This extends over the dorsum of the foot. This is consistent with cellulitis. There is no josue abscess identified. The musculature of the right lower extremity is unremarkable in appearance. There is no periosteal reaction appreciated. No lytic or blastic osseous lesion is seen of the entire lower extremity as well as the visualized right iliac bone and visualized portion of sacrum. IMPRESSION: Extensive cellulitis of the right medial thigh, perineum and entire right lower extremity. No evidence of abscess. No osseous abnormality appreciated.
--- NOTE | 2018-02-08 13:12 | CP.PCM.PN ---
Subjective - Date & Time of Evaluation Date of Evaluation: 02/08/18 Time of Evaluation: 13:10 - Subjective Subjective: pt seen and examined ct rt LE noted no fevers chills sob dizziness nausea vomiting diarrhea rt leg pain Objective - Vital Signs/Intake and Output Vital Signs (last 24 hours): Temp Pulse Resp BP Pulse Ox 98.7 F 78 20 102/66 93 L 02/08/18 07:00 02/08/18 09:00 02/08/18 07:00 02/08/18 07:00 02/08/18 07:00 Intake and Output: 02/08/18 02/08/18 06:59 18:59 Intake Total 490 Balance 490 - Medications Medications: Current Medications Aspirin (Aspirin Chewable) 81 mg PO DAILY [facility] Last Admin: 02/08/18 09:06 Dose: 81 mg Calcium Acetate (Phoslo) 667 mg PO TID [facility] Last Admin: 02/08/18 09:06 Dose: 667 mg Docusate Sodium (Colace) 100 mg PO BID [facility] Last Admin: 02/08/18 09:06 Dose: 100 mg Guaifenesin (Robitussin) 100 mg PO Q4H PRN PRN Reason: Cough Last Admin: 02/07/18 02:01 Dose: 100 mg Heparin Sodium (Porcine) (Heparin) 5,000 units SC Q12 [facility] Last Admin: 02/08/18 09:05 Dose: 5,000 units Clindamycin Phosphate (Cleocin) 600 mg in 50 mls @ 100 mls/hr IVPB STAT [facility] PRN Reason: Protocol Vancomycin HCl 1 gm/ Sodium (Chloride) 200 mls @ 166.7 mls/hr IVPB Q48H [facility] PRN Reason: Protocol Aztreonam 2 gm/ Sodium (Chloride) 100 mls @ 200 mls/hr IVPB Q24H [facility] PRN Reason: Protocol Tigecycline 100 mg/ Sodium (Chloride) 100 mls @ 100 mls/hr IVPB ONCE ONE PRN Reason: Protocol Stop: 02/08/18 13:29 Tigecycline 50 mg/ Dextrose 100 mls @ 100 mls/hr IVPB Q12H [facility] PRN Reason: Protocol Metoclopramide HCl (Reglan) 10 mg IVP Q8H PRN PRN Reason: Nausea/Vomiting Rosuvastatin Calcium (Crestor) 10 mg PO HS [facility] Tramadol HCl (Ultram) 50 mg PO Q4H PRN PRN Reason: Pain, severe (8-10) Last Admin: 02/08/18 11:55 Dose: 50 mg - Labs Labs: 02/08/18 07:12 02/08/18 07:12 - Constitutional Appears: No Acute Distress, Chronically Ill (obese) - Head Exam Head Exam: NORMAL INSPECTION - Eye Exam Eye Exam: Normal appearance, PERRL - ENT Exam ENT Exam: Mucous Membranes Moist, Normal Exam - Neck Exam Neck Exam: Full ROM, Normal Inspection - Respiratory Exam Respiratory Exam: Clear to Ausculation Bilateral, NORMAL BREATHING PATTERN - Cardiovascular Exam Cardiovascular Exam: REGULAR RHYTHM, RRR - GI/Abdominal Exam GI & Abdominal Exam: Distended, Soft - Extremities Exam Additional comments: b/l chronic stasis and skin changes - Neurological Exam Neurological Exam: Alert, Awake, Oriented x3 - Psychiatric Exam Psychiatric exam: Normal Affect, Normal Mood - Skin Skin Exam: Dry, Warm Assessment and Plan (1) Hyperkalemia Status: Acute (2) Hypertension Status: Acute (3) Anemia Status: Acute (4) Cellulitis Status: Acute (5) ESRD (end stage renal disease) Status: Acute - Assessment and Plan (Free Text) Assessment: hd today low k diet antibiotics/ ID evaluation low bp noted, no antihypertensives migue w/ hd
[2018-02-08] MEDS: Aztreonam 1 GM in Sodium Chloride 0.9% 100 ML IVPB SCH (19:00)
[2018-02-08 19:55] LABS: EOS # 0.1 K/uL (0.0-0.7); EOS % 0.6 % (0.0-4.0); HEMOGLOBIN 8.9 g/dL (12.0-18.0); LYMPH # 0.3 K/uL (1.0-4.3); LYMPH % 1.2 % (20.0-40.0); MEAN CELL VOLUME 75.4 fL (80.0-94.0); MEAN CORPUSCULAR HEMOGLOBIN 24.6 pg (27.0-31.0); MEAN CORPUSCULAR HGB CONC 32.6 g/dL (33.0-37.0); MEAN PLATELET VOLUME 7.7 fL (7.2-11.7); MONO # 2.2 K/uL (0.0-0.8); MONO % 8.1 % (0.0-10.0); NEUT # 23.9 K/uL (1.8-7.0); NEUT % 90.1 % (50.0-75.0); PLATELET COUNT 370 K/uL (130-400); RBC 3.61 Mil/uL (4.40-5.90); RED CELL DISTRIBUTION WIDTH 16.6 % (11.5-14.5); WHITE BLOOD COUNT 26.6 K/uL (4.8-10.8)
[2018-02-08 20:36] LABS: EOSINOPHIL 1 % (0-4); LYMPHOCYTE 4 % (20-40); MONOCYTE 4 % (0-10); NEUTROPHIL 91 % (50-75); TOTAL CELLS COUNTED 100
[2018-02-08 20:37] LABS: ANISOCYTOSIS SLIGHT; HYPOCHROMIC SLIGHT; MICROCYTOSIS SLIGHT; PLATELET ESTIMATE NORMAL (NORMAL); POLYCHROMIC SLIGHT; TARGET CELLS SLIGHT
--- NOTE | 2018-02-08 22:17 | CP.PCM.CON ---
History of Present Illness - History of Present Illness History of Present Illness: dictated Past Patient History - Infectious Disease Hx of Infectious Diseases: None - Past Medical History & Family History Past Medical History?: Yes - Past Social History Smoking Status: Current Some Days Smoker - CARDIAC Hx Peripheral Edema: Yes - PULMONARY Hx Asthma: Yes Hx Bronchitis: Yes Hx Chronic Obstructive Pulmonary Disease (COPD): Yes - NEUROLOGICAL Hx Neurological Disorder: No - HEENT Hx HEENT Problems: No - RENAL Date of Last Dialysis Treatment: 02/05/18 - ENDOCRINE/METABOLIC Hx Diabetes Mellitus Type 2: Yes - HEMATOLOGICAL/ONCOLOGICAL Hx Anemia: Yes - INTEGUMENTARY Hx Dermatological Problems: Yes Hx Cellulitis: Yes (BILATERAL LEGS) - MUSCULOSKELETAL/RHEUMATOLOGICAL Hx Musculoskeletal Disorders: Yes Hx Falls: Yes Other/Comment: Morbid obesity - GASTROINTESTINAL Hx Gastrointestinal Disorders: Yes Hx Gastroesophageal Reflux: Yes - GENITOURINARY/GYNECOLOGICAL Hx Genitourinary Disorders: No - PSYCHIATRIC Hx Substance Use: No - SURGICAL HISTORY Hx Surgeries: Yes (Left arm AV Fistula) Hx Vascular Surgery: Yes (ACCESS FOR DIALYSIS) - ANESTHESIA Hx Anesthesia: Yes Hx Anesthesia Reactions: No Hx Malignant Hyperthermia: No Meds Allergies/Adverse Reactions: Allergies Allergy/AdvReac Type Severity Reaction Status Date / Time Penicillins Allergy Verified 10/26/17 16:12 tazobactam [From Zosyn] Allergy Verified 02/04/18 17:27 piperacillin AdvReac ITCHING, Verified 10/22/17 03:21 SHORTNESS OF BREATH PET DANDER Allergy Severe CONGESTION Uncoded 10/22/17 03:21 - Medications Medications: Current Medications Aspirin (Aspirin Chewable) 81 mg PO DAILY [facility] Last Admin: 02/08/18 09:06 Dose: 81 mg Calcium Acetate (Phoslo) 667 mg PO TID [facility] Last Admin: 02/08/18 18:59 Dose: 667 mg Docusate Sodium (Colace) 100 mg PO BID [facility] Last Admin: 02/08/18 18:59 Dose: 100 mg Epoetin Ventura (Procrit) 6,000 unit IV TTS [facility] Last Admin: 02/08/18 17:36 Dose: 6,000 unit Guaifenesin (Robitussin) 100 mg PO Q4H PRN PRN Reason: Cough Last Admin: 02/07/18 02:01 Dose: 100 mg Heparin Sodium (Porcine) (Heparin) 5,000 units SC Q12 [facility] Last Admin: 02/08/18 21:38 Dose: 5,000 units Aztreonam 1 gm/ Sodium (Chloride) 100 mls @ 200 mls/hr IVPB Q12H [facility] PRN Reason: Protocol Last Admin: 02/08/18 19:00 Dose: 200 mls/hr Tigecycline 50 mg/ Sodium (Chloride) 100 mls @ 100 mls/hr IVPB Q12H [facility] PRN Reason: Protocol Metoclopramide HCl (Reglan) 5 mg IVP Q8H PRN PRN Reason: Nausea/Vomiting Tramadol HCl (Ultram) 50 mg PO Q4H PRN PRN Reason: Pain, severe (8-10) Last Admin: 02/08/18 21:38 Dose: 50 mg Results - Vital Signs Recent Vital Signs: Last Vital Signs Temp 98.3 F 02/08/18 19:02 Pulse 82 02/08/18 19:02 Resp 20 02/08/18 19:02 BP 109/66 02/08/18 19:02 Pulse Ox 99 02/08/18 19:02 - Labs Result Diagrams: 02/08/18 19:51 02/08/18 07:12 Labs: Laboratory Results - last 24 hr 02/08/18 02/08/18 02/08/18 07:12 07:12 19:51 WBC 24.7 H 26.6 H RBC 3.68 L 3.61 L Hgb 9.2 L 8.9 L Hct 27.9 L 27.2 L MCV 76.0 L 75.4 L MCH 25.1 L 24.6 L MCHC 33.1 32.6 L RDW 16.9 H 16.6 H Plt Count 390 370 MPV 7.7 7.7 Neut % (Auto) 87.4 H 90.1 H Lymph % (Auto) 3.9 L 1.2 L Pender % (Auto) 7.7 8.1 Eos % (Auto) 0.6 0.6 Baso % (Auto) 0.4 0.0 Neut # (Auto) 21.6 H 23.9 H Lymph # (Auto) 1.0 0.3 L Pender # (Auto) 1.9 H 2.2 H Eos # (Auto) 0.2 0.1 Baso # (Auto) 0.1 0.0 Neutrophils % (Manual) 88 H 91 H Lymphocytes % (Manual) 3 L 4 L Monocytes % (Manual) 8 4 Eosinophils % (Manual) 1 Basophils % (Manual) 1 Platelet Estimate Normal Normal Polychromasia Slight Hypochromasia (manual) Slight Slight Poikilocytosis (manual Slight Anisocytosis (manual) Slight Slight Microcytosis (manual) Slight Target Cells Slight Slight Tear Drop Cells Slight Ovalocytes Slight Sodium 140 Potassium 6.0 H Chloride 93 L Carbon Dioxide 23 Anion Gap 30 H BUN 87 H Creatinine 14.1 H* Est GFR ( Amer) 5 Est GFR (Non-Af Amer) 4 Random Glucose 79 Calcium 7.5 L Total Bilirubin 1.4 H AST 154 H D ALT 159 H D Alkaline Phosphatase 282 H D Total Protein 8.3 Albumin 3.4 L Globulin 4.9 H Albumin/Globulin Ratio 0.7 L
[2018-02-09] MEDS: guaiFENesin 100 mg/5 ml Syrup UD PO PRN (00:42)
[2018-02-09] MEDS: Aztreonam 1 GM in Sodium Chloride 0.9% 100 ML IVPB SCH ×2 (03:10→16:30)
--- NOTE | 2018-02-09 09:42 | CON ---
DATE: INFECTIOUS DISEASE CONSULT REQUESTED BY: Ivet Alegre MD HISTORY OF PRESENT ILLNESS: This patient is a 52-year-old obese male. He has history of hypertension, end-stage renal disease, chronic lymphedema in bilateral lower extremities. He has had multiple admissions with cellulitis in the legs, especially right leg in the past. He comes in with right leg swelling and redness and cellulitis and he has missed two of his dialysis, Wednesday and . He has been not feeling well and he said it was because of the snow also and his potassium was 7.8. He came in to have _Dialysis . He denies any chest pain. No shortness of breath. No chills. No nausea, no vomiting. No diarrhea. He does complain of pain in the right leg and right thigh. He has multiple folds due to lymphedema and obesity and complaining of pain. His white count is increased, hence I am asked to see him. ALLERGIES: HE IS ALLERGIC TO ZOSYN, HE DEVELOPED RASH TO IT ONE TIME. HE IS ALLERGIC TO PENICILLIN, WHICH CAUSED HIM SOME SHORTNESS OF BREATH AND HE IS obese and may have respiratory problems due to obesity also PAST MEDICAL HISTORY: Significant for hypertension, end-stage renal disease, lymphedema, morbid obesity. He has AV fistula in the left arm. PAST SURGICAL HISTORY: Significant for left AV fistula and access for dialysis in the past. He has had anesthesia before. SOCIAL HISTORY: He denies smoking, drinking, or drug abuse. FAMILY HISTORY: Noncontributory. REVIEW OF SYSTEMS: He denies any other complaints. He does have right thigh pain and leg edema. He has had previous problem with his legs. SOCIAL HISTORY: Significant for live smoking, less than 10 cigarettes daily. REVIEW OF SYSTEMS: CARDIAC: Cardiac bhatti, he has hypertension, peripheral edema, lymphedema. LUNGS: He has bronchitis, history of COPD. NEUROLOGIC: No neurological symptoms. HEENT: No HEENT symptoms. RENAL: He has chronic renal disease, and he is on dialysis. ENDOCRINE: He has diabetes type 2 and hematologically he has anemia. DERMATOLOGIC: He has skin cellulitis and has problems with it. MUSCULOSKELETAL: He has morbid obesity. GASTROINTESTINAL: He has GI disorders and gastroesophageal reflux disease. GENITOURINARY: He denies any urinary symptoms. PSYCH: Psych history is negative. MEDICATIONS: He was on clindamycin before and yesterday Dr. Alegre started Vancomycin, but his white count is increasing markedly and so today I decided to change the antibiotics, hopefully that will help him. PHYSICAL EXAMINATION GENERAL: He was getting dialysis when I saw him. VITAL SIGNS: T-MAX today is 97.6, pulse is 80, blood pressure is 109/66, respirations are 20. HEENT: Head is atraumatic and normocephalic. Pupils are reacting to light. Eye movements are unremarkable. Tongue is moist. NECK: Supple. JVP is flat. LUNGS: Decreased breath sounds bilaterally. No crackles or rales heard. HEART: S1 and S2, regular. No murmurs appreciated. ABDOMEN: Soft, flabby, nontender. No guarding, no rigidity present. EXTREMITIES: Both thighs have multiple folds, right thigh has woody type, was hard because of chronic lymphedema and warm to touch in right thigh extending till the right leg. 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 This edema extends from the thigh to the feet and right leg is much more edematous and always being troubled. Left leg also remains with lymphedema, but not warm to touch. LABORATORY DATA: Labs are noted. Labs showed white count was 14.3. On 02/05/2018, it has increased to 26.6 today, hemoglobin is 8.9, hematocrit 27.2, platelet count is 370. His potassium still remains 6, and creatinine is 14.1, it is a very high number. BUN is 87, anion gap is 30. Liver enzymes are also elevated with AST 154, ALT 159, alkaline phosphatase is 282, so I think instead of Tygacil since his LFTs are elevated, I am going to change it to Zyvox. If by tomorrow his numbers are not improved, we will leave as it at this time of dictation and we will continue with Tygacil and Azactam at this time and if his liver enzymes may be a problem. At this time, I will also stop the Crestor. We will follow. I also saw the CAT scan report. Scan of lower extremity was done which shows extensive cellulitis of the right medial thigh, perineum, and entire right lower extremity. No evidence of abscess. No osseous abnormality appreciated. He has extensive obesity, lymphedema with cellulitis, with increased WBC count, renal failure, hyperkalemia, suggested at this time. I have discontinued Clindamycin. His white count was increasing on it. However, he did tolerate it well before, but right now we will leave him on Tygacil and Azactam and if this does not help we will have to change his antibiotics further. His liver enzymes are elevated, hence we will need to monitor those while on Tygacil and also to discontinue Crestor at this time as LFTs are elevated. Alec Boucher MD [facility]
--- NOTE | 2018-02-09 11:26 | VASCLAB ---
PROCEDURE: Bilateral Lower Extremity Venous Duplex Exam. HISTORY: Swelling PRIORS: Lower extremity ultrasound dated 11/23/2017. TECHNIQUE: Bilateral common femoral, femoral, popliteal and posterior tibial, peroneal and great saphenous veins were evaluated. Flow was assessed with color Doppler, compressibility, assessment of phasic flow and augmentation response. Report prepared by SUNDAY Lerner FINDINGS: RIGHT: 1. Common Femoral Vein: 1.1. Compressibility - Fully compressible: Thrombus - None : Flow - Phasic: Augmentation -Normal: Reflux - None. 2. Femoral Vein: (proximal view only) 2.1. Compressibility - Fully compressible: Thrombus - None : Flow - Phasic: Augmentation -Normal: Reflux - None. 3. Popliteal Vein: 3.1. Compressibility - Fully compressible: Thrombus - None : Flow - Phasic: Augmentation -Normal: Reflux - None. LEFT: 1. Common Femoral Vein: 1.1. Compressibility - Fully compressible: Thrombus - None: Flow - Phasic: Augmentation -Normal: Reflux - None. 2. Femoral Vein: (proximal view only) 2.1. Compressibility - Fully compressible: Thrombus - None: Flow - Phasic: Augmentation -Normal: Reflux - None. 3. Popliteal Vein: 3.1. Compressibility - Fully compressible: Thrombus - None : Flow - Phasic: Augmentation -Normal: Reflux - None. OTHER FINDINGS: IMPRESSION: 1. Bilateral common femoral, proximal femoral and popliteal veins are compressible. 2. Limited exam of the lower extremities due to patient body habitus. Technically difficult exam.
--- NOTE | 2018-02-09 14:09 | CP.PCM.PN ---
Subjective - Date & Time of Evaluation Date of Evaluation: 02/09/18 Time of Evaluation: 14:06 - Subjective Subjective: same pain right LE CT c/w cellulitis advised about hi K c/o constipation srtable dialysis 02/08 Objective - Vital Signs/Intake and Output Vital Signs (last 24 hours): Temp Pulse Resp BP Pulse Ox 98.7 F 80 20 110/72 97 02/09/18 07:35 02/09/18 07:35 02/09/18 07:35 02/09/18 07:35 02/09/18 07:35 Intake and Output: 02/09/18 02/09/18 06:59 18:59 Intake Total 600 Balance 600 - Medications Medications: Current Medications Aspirin (Aspirin Chewable) 81 mg PO DAILY [facility] Last Admin: 02/09/18 11:06 Dose: 81 mg Calcium Acetate (Phoslo) 667 mg PO TID [facility] Last Admin: 02/09/18 13:40 Dose: 667 mg Docusate Sodium (Colace) 100 mg PO BID [facility] Last Admin: 02/09/18 11:06 Dose: 100 mg Epoetin Ventura (Procrit) 6,000 unit IV TTS [facility] Last Admin: 02/08/18 17:36 Dose: 6,000 unit Guaifenesin (Robitussin) 100 mg PO Q4H PRN PRN Reason: Cough Last Admin: 02/09/18 00:42 Dose: 100 mg Heparin Sodium (Porcine) (Heparin) 5,000 units SC Q12 [facility] Last Admin: 02/09/18 11:07 Dose: 5,000 units Aztreonam 1 gm/ Sodium (Chloride) 100 mls @ 200 mls/hr IVPB Q12H [facility] PRN Reason: Protocol Last Admin: 02/09/18 03:10 Dose: 200 mls/hr Tigecycline 50 mg/ Sodium (Chloride) 100 mls @ 100 mls/hr IVPB Q12H [facility] PRN Reason: Protocol Last Admin: 02/09/18 04:19 Dose: 100 mls/hr Metoclopramide HCl (Reglan) 5 mg IVP Q8H PRN PRN Reason: Nausea/Vomiting Last Admin: 02/09/18 07:54 Dose: 5 mg Tramadol HCl (Ultram) 50 mg PO Q4H PRN PRN Reason: Pain, severe (8-10) Last Admin: 02/09/18 07:55 Dose: 50 mg - Labs Labs: 02/08/18 19:51 02/08/18 07:12 - Constitutional Appears: No Acute Distress, Chronically Ill - Head Exam Head Exam: ATRAUMATIC, NORMAL INSPECTION - Eye Exam Eye Exam: EOMI, Normal appearance - Neck Exam Neck Exam: Normal Inspection. absent: Tenderness - Respiratory Exam Respiratory Exam: Clear to Ausculation Bilateral, NORMAL BREATHING PATTERN - Cardiovascular Exam Cardiovascular Exam: REGULAR RHYTHM, +S1 - GI/Abdominal Exam GI & Abdominal Exam: Soft. absent: Tenderness - Extremities Exam Extremities Exam: Pedal Edema, Tenderness - Neurological Exam Neurological Exam: Awake, CN II-XII Intact - Skin Skin Exam: Dry, Warm Assessment and Plan (1) Cellulitis Status: Acute (2) Hyperkalemia Status: Acute (3) ESRD (end stage renal disease) Status: Acute - Assessment and Plan (Free Text) Plan: dialysis TTS IV ABs add lactulose f/o chemistries increase EPO dose
[2018-02-09] MEDS ORDERED: Vancomycin 1 GM in Sodium Chloride 0.9% 200 ML IVPB SCH (16:00)
--- NOTE | 2018-02-09 16:39 | CP.PCM.PN ---
Subjective - Date & Time of Evaluation Date of Evaluation: 02/09/18 Time of Evaluation: 16:39 - Subjective Subjective: Pt reports being comfortable, no new issues overnight. Objective - Vital Signs/Intake and Output Vital Signs (last 24 hours): Temp Pulse Resp BP Pulse Ox 98.7 F 80 20 110/72 97 02/09/18 07:35 02/09/18 07:35 02/09/18 07:35 02/09/18 07:35 02/09/18 07:35 Intake and Output: 02/09/18 02/09/18 06:59 18:59 Intake Total 600 400 Balance 600 400 - Medications Medications: Current Medications Aspirin (Aspirin Chewable) 81 mg PO DAILY [facility] Last Admin: 02/09/18 11:06 Dose: 81 mg Calcium Acetate (Phoslo) 667 mg PO TID [facility] Last Admin: 02/09/18 13:40 Dose: 667 mg Docusate Sodium (Colace) 100 mg PO BID [facility] Last Admin: 02/09/18 11:06 Dose: 100 mg Epoetin Ventura (Procrit) 10,000 unit IV TTS [facility] Guaifenesin (Robitussin) 100 mg PO Q4H PRN PRN Reason: Cough Last Admin: 02/09/18 00:42 Dose: 100 mg Heparin Sodium (Porcine) (Heparin) 5,000 units SC Q12 [facility] Last Admin: 02/09/18 11:07 Dose: 5,000 units Aztreonam 1 gm/ Sodium (Chloride) 100 mls @ 200 mls/hr IVPB Q12H [facility] PRN Reason: Protocol Last Admin: 02/09/18 03:10 Dose: 200 mls/hr Tigecycline 50 mg/ Sodium (Chloride) 100 mls @ 100 mls/hr IVPB Q12H [facility] PRN Reason: Protocol Last Admin: 02/09/18 04:19 Dose: 100 mls/hr Lactulose (Enulose) 20 gm PO HS [facility] Metoclopramide HCl (Reglan) 5 mg IVP Q8H PRN PRN Reason: Nausea/Vomiting Last Admin: 02/09/18 07:54 Dose: 5 mg Tramadol HCl (Ultram) 50 mg PO Q4H PRN PRN Reason: Pain, severe (8-10) Last Admin: 02/09/18 07:55 Dose: 50 mg - Labs Labs: 02/08/18 19:51 02/08/18 07:12 - Constitutional Appears: Well, Non-toxic - Eye Exam Eye Exam: Normal appearance - ENT Exam ENT Exam: Mucous Membranes Moist - Respiratory Exam Respiratory Exam: Clear to Ausculation Bilateral - Cardiovascular Exam Cardiovascular Exam: REGULAR RHYTHM, RRR. absent: JVD - GI/Abdominal Exam GI & Abdominal Exam: Normal Bowel Sounds (right thigh swelling and some redness) Assessment and Plan - Assessment and Plan (Free Text) Assessment: Ct scan of thigh consistent with extensive cellulitis ID consulted due to elevation fo wbc appreciate her input blood cultures negative HD; per Dr heller pain management in place
[2018-02-09 16:50] LABS: BASO # 0.1 K/uL (0.0-0.2); BASO % 0.3 % (0.0-2.0); EOS # 0.2 K/uL (0.0-0.7); EOS % 1.1 % (0.0-4.0); HEMOGLOBIN 8.4 g/dL (12.0-18.0); LYMPH # 0.4 K/uL (1.0-4.3); MEAN CELL VOLUME 75.2 fL (80.0-94.0); MEAN CORPUSCULAR HEMOGLOBIN 24.2 pg (27.0-31.0); MEAN CORPUSCULAR HGB CONC 32.2 g/dL (33.0-37.0); MEAN PLATELET VOLUME 7.6 fL (7.2-11.7); MONO # 1.9 K/uL (0.0-0.8); MONO % 9.2 % (0.0-10.0); NEUT # 18.1 K/uL (1.8-7.0); NEUT % 87.4 % (50.0-75.0); PLATELET COUNT 392 K/uL (130-400); RBC 3.45 Mil/uL (4.40-5.90); RED CELL DISTRIBUTION WIDTH 16.3 % (11.5-14.5); WHITE BLOOD COUNT 20.8 K/uL (4.8-10.8)
[2018-02-09 18:21] LABS: EOSINOPHIL 2 % (0-4); LYMPHOCYTE 9 % (20-40); MONOCYTE 13 % (0-10); NEUTROPHIL 76 % (50-75); TOTAL CELLS COUNTED 100
[2018-02-09 18:24] LABS: PLATELET ESTIMATE NORMAL (NORMAL)
[2018-02-09 18:25] LABS: ANISOCYTOSIS SLIGHT; MICROCYTOSIS SLIGHT; OVALOCYTES SLIGHT; POIKILOCYTOSIS SLIGHT
[2018-02-09 18:26] LABS: LARGE PLATELETS PRESENT
--- NOTE | 2018-02-09 20:56 | CP.PCM.PN ---
Subjective - Date & Time of Evaluation Date of Evaluation: 02/09/18 Time of Evaluation: 03:30 - Subjective Subjective: dictated Objective - Vital Signs/Intake and Output Vital Signs (last 24 hours): Temp Pulse Resp BP Pulse Ox 99.5 F 88 20 117/73 94 L 02/09/18 15:10 02/09/18 16:00 02/09/18 15:10 02/09/18 15:10 02/09/18 15:10 Intake and Output: 02/09/18 02/10/18 18:59 06:59 Intake Total 400 Balance 400 - Medications Medications: Current Medications Aspirin (Aspirin Chewable) 81 mg PO DAILY [facility] Last Admin: 02/09/18 11:06 Dose: 81 mg Calcium Acetate (Phoslo) 667 mg PO TID [facility] Last Admin: 02/09/18 17:36 Dose: 667 mg Docusate Sodium (Colace) 100 mg PO BID [facility] Last Admin: 02/09/18 17:36 Dose: 100 mg Epoetin Ventura (Procrit) 10,000 unit IV TTS [facility] Guaifenesin (Robitussin) 100 mg PO Q4H PRN PRN Reason: Cough Last Admin: 02/09/18 00:42 Dose: 100 mg Heparin Sodium (Porcine) (Heparin) 5,000 units SC Q12 [facility] Last Admin: 02/09/18 11:07 Dose: 5,000 units Aztreonam 1 gm/ Sodium (Chloride) 100 mls @ 200 mls/hr IVPB Q12H [facility] PRN Reason: Protocol Last Admin: 02/09/18 16:30 Dose: 200 mls/hr Tigecycline 50 mg/ Sodium (Chloride) 100 mls @ 100 mls/hr IVPB Q12H [facility] PRN Reason: Protocol Last Admin: 02/09/18 17:38 Dose: 100 mls/hr Lactulose (Enulose) 20 gm PO HS [facility] Metoclopramide HCl (Reglan) 5 mg IVP Q8H PRN PRN Reason: Nausea/Vomiting Last Admin: 02/09/18 17:37 Dose: 5 mg Tramadol HCl (Ultram) 50 mg PO Q4H PRN PRN Reason: Pain, severe (8-10) Last Admin: 02/09/18 17:36 Dose: 50 mg - Labs Labs: 02/09/18 16:43 02/08/18 07:12
--- NOTE | 2018-02-10 01:30 | PN ---
DATE: 02/09/2018 SUBJECTIVE: The patient was seen today. He was trying to eat. He still has the right leg very warm to touch, but he is also constipated. He said he was going to get lactulose from Dr. Mota. OBJECTIVE: VITAL SIGNS: T-max is 98.6, pulse is 84, blood pressure is 100/61, respirations are 20. HEENT: Head is atraumatic, normocephalic. CONSTITUTIONAL: He is awake, alert. NECK: Supple. LUNGS: Clear. Heart: S1, S2 regular. ABDOMEN: Flabby, nontender. EXTREMITIES: Right thigh remained warm with swelling and redness and increased warmth extending up to the right leg and both legs have chronic lymphedema. LABORATORY DATA: The white count today was 20.8, hemoglobin 8.4, hematocrit 26, platelet count is 392, neutrophils are 87. Sodium is 140, potassium still remains high. This is from yesterday. Liver enzymes are from yesterday, so I will repeat the liver enzymes along with CBC tomorrow and see from there. Micro blood cultures have been negative and even in the ones which were taken from the left arm fistula are negative at this time ASSESSMENT AND PLAN: The impression is the patient has complicated cellulitis with chronic lymphedema, obesity, end-stage renal disease and hence it is very difficult to get his cellulitis under control. He also has increased WBC count and increased LFTs due to sepsis and we will need to monitor them and we will order a hepatitis profile as well as liver enzymes again. We will follow and continue on Tygacil and Azactam for now Alec Boucher MD
[2018-02-10] MEDS: Aztreonam 1 GM in Sodium Chloride 0.9% 100 ML IVPB SCH ×2 (03:56→16:08)
[2018-02-10] MEDS ORDERED: Epoetin Alfa Dialysis 3000 UNIT/ML Inj IV SCH (10:00)
--- NOTE | 2018-02-10 10:04 | CP.PCM.PN ---
Subjective - Date & Time of Evaluation Date of Evaluation: 02/10/18 Time of Evaluation: 10:01 - Subjective Subjective: for dialysis now BP controlled, Afebrile LFTs increasing can consider holding IV ABs?- new meds might be elevating LFTs Objective - Vital Signs/Intake and Output Vital Signs (last 24 hours): Temp Pulse Resp BP Pulse Ox 98.7 F 83 18 111/70 96 02/10/18 07:40 02/10/18 07:40 02/10/18 07:40 02/10/18 07:40 02/10/18 07:40 Intake and Output: 02/10/18 02/10/18 06:59 18:59 Intake Total 600 Balance 600 - Medications Medications: Current Medications Aspirin (Aspirin Chewable) 81 mg PO DAILY [facility] Last Admin: 02/09/18 11:06 Dose: 81 mg Calcium Acetate (Phoslo) 667 mg PO TID [facility] Last Admin: 02/09/18 17:36 Dose: 667 mg Docusate Sodium (Colace) 100 mg PO BID [facility] Last Admin: 02/09/18 17:36 Dose: 100 mg Epoetin Ventura (Procrit) 10,000 unit IV TTS [facility] Guaifenesin (Robitussin) 100 mg PO Q4H PRN PRN Reason: Cough Last Admin: 02/09/18 00:42 Dose: 100 mg Heparin Sodium (Porcine) (Heparin) 5,000 units SC Q12 [facility] Last Admin: 02/09/18 21:37 Dose: 5,000 units Aztreonam 1 gm/ Sodium (Chloride) 100 mls @ 200 mls/hr IVPB Q12H [facility] PRN Reason: Protocol Last Admin: 02/10/18 03:56 Dose: 200 mls/hr Tigecycline 50 mg/ Sodium (Chloride) 100 mls @ 100 mls/hr IVPB Q12H [facility] PRN Reason: Protocol Last Admin: 02/10/18 04:01 Dose: 100 mls/hr Lactulose (Enulose) 20 gm PO HS [facility] Last Admin: 02/09/18 21:37 Dose: 20 gm Metoclopramide HCl (Reglan) 5 mg IVP Q8H PRN PRN Reason: Nausea/Vomiting Last Admin: 02/10/18 06:25 Dose: 5 mg Tramadol HCl (Ultram) 50 mg PO Q4H PRN PRN Reason: Pain, severe (8-10) Last Admin: 02/10/18 03:59 Dose: 50 mg - Labs Labs: 02/09/18 16:43 02/08/18 07:12 - Constitutional Appears: No Acute Distress, Chronically Ill - Head Exam Head Exam: ATRAUMATIC, NORMAL INSPECTION - Eye Exam Eye Exam: EOMI, Normal appearance - Neck Exam Neck Exam: Normal Inspection. absent: Tenderness - Respiratory Exam Respiratory Exam: Clear to Ausculation Bilateral, NORMAL BREATHING PATTERN - Cardiovascular Exam Cardiovascular Exam: REGULAR RHYTHM, +S1 - GI/Abdominal Exam GI & Abdominal Exam: Soft. absent: Tenderness - Extremities Exam Extremities Exam: Normal Inspection. absent: Tenderness - Neurological Exam Neurological Exam: Alert, CN II-XII Intact - Skin Skin Exam: Dry, Warm Assessment and Plan (1) Cellulitis Status: Acute (2) Hyperkalemia Status: Acute (3) ESRD (end stage renal disease) Status: Acute - Assessment and Plan (Free Text) Plan: Dialysis TTS Repeat LFTs IV ABs as per ID stop reglan
[2018-02-10 10:15] LABS: BASO # 0.1 K/uL (0.0-0.2); BASO % 0.5 % (0.0-2.0); EOS # 0.2 K/uL (0.0-0.7); EOS % 0.9 % (0.0-4.0); HEMOGLOBIN 8.2 g/dL (12.0-18.0); LYMPH # 0.6 K/uL (1.0-4.3); LYMPH % 2.8 % (20.0-40.0); MEAN CELL VOLUME 75.8 fL (80.0-94.0); MEAN CORPUSCULAR HEMOGLOBIN 24.3 pg (27.0-31.0); MEAN PLATELET VOLUME 7.7 fL (7.2-11.7); MONO # 1.6 K/uL (0.0-0.8); NEUT % 88.8 % (50.0-75.0); PLATELET COUNT 410 K/uL (130-400); RBC 3.37 Mil/uL (4.40-5.90); RED CELL DISTRIBUTION WIDTH 16.4 % (11.5-14.5); WHITE BLOOD COUNT 22.5 K/uL (4.8-10.8)
[2018-02-10 10:42] LABS: ALB/GLOB RATIO 0.6 (1.0-2.1); ALBUMIN 3.1 g/dL (3.5-5.0); ALT/SGPT 145 U/L (21-72); AST/SGOT 109 U/L (17-59); BLOOD UREA NITROGEN 86 mg/dL (9-20); CALCIUM 6.6 mg/dl (8.6-10.4)
[2018-02-10 10:46] LABS: GFR AFRICAN-AMERICAN 5; GFR NON-AFRICAN AMERICAN 4
[2018-02-10 10:58] LABS: HEPATITIS B SURFACE AG Negative (NEGATIVE)
[2018-02-10 11:01] LABS: LYMPHOCYTE 7 % (20-40); MONOCYTE 6 % (0-10); NEUTROPHIL 87 % (50-75); TOTAL CELLS COUNTED 100
[2018-02-10 11:02] LABS: ANISOCYTOSIS SLIGHT; HYPOCHROMIC SLIGHT; PLATELET ESTIMATE NORMAL (NORMAL); POLYCHROMIC SLIGHT; TARGET CELLS SLIGHT
[2018-02-10 11:03] LABS: MICROCYTOSIS SLIGHT
[2018-02-10] MEDS: Epoetin Alfa 10,000 unit/ml Dialysis IV SCH (12:34)
--- NOTE | 2018-02-10 17:45 | CP.PCM.PN ---
Subjective - Date & Time of Evaluation Date of Evaluation: 02/10/18 Objective - Vital Signs/Intake and Output Vital Signs (last 24 hours): Temp Pulse Resp BP Pulse Ox 99.3 F 89 20 89/62 L 96 02/10/18 15:20 02/10/18 15:20 02/10/18 15:20 02/10/18 15:20 02/10/18 15:20 Intake and Output: 02/10/18 02/10/18 06:59 18:59 Intake Total 600 Balance 600 - Medications Medications: Current Medications Aspirin (Aspirin Chewable) 81 mg PO DAILY [facility] Last Admin: 02/10/18 14:13 Dose: 81 mg Calcium Acetate (Phoslo) 667 mg PO TID [facility] Last Admin: 02/10/18 17:19 Dose: 667 mg Docusate Sodium (Colace) 100 mg PO BID [facility] Last Admin: 02/10/18 17:19 Dose: 100 mg Epoetin Ventura (Procrit) 10,000 unit IV TTS [facility] Last Admin: 02/10/18 12:34 Dose: 10,000 unit Guaifenesin (Robitussin) 100 mg PO Q4H PRN PRN Reason: Cough Last Admin: 02/09/18 00:42 Dose: 100 mg Aztreonam 1 gm/ Sodium (Chloride) 100 mls @ 200 mls/hr IVPB Q12H [facility] PRN Reason: Protocol Last Admin: 02/10/18 16:08 Dose: 200 mls/hr Tigecycline 50 mg/ Sodium (Chloride) 100 mls @ 100 mls/hr IVPB Q12H [facility] PRN Reason: Protocol Last Admin: 02/10/18 17:19 Dose: 100 mls/hr Lactulose (Enulose) 20 gm PO HS [facility] Last Admin: 02/09/18 21:37 Dose: 20 gm Tramadol HCl (Ultram) 50 mg PO Q4H PRN PRN Reason: Pain, severe (8-10) Last Admin: 02/10/18 14:12 Dose: 50 mg - Labs Labs: 02/10/18 10:03 02/10/18 10:03 Assessment and Plan - Assessment and Plan (Free Text) Assessment: extensive cellulitis anbx changed per id no fever, negative blood cultures but wbc still elevated will discuss with ID
--- NOTE | 2018-02-10 19:00 | CP.PCM.PN ---
Subjective - Date & Time of Evaluation Date of Evaluation: 02/10/18 Time of Evaluation: 02:15 - Subjective Subjective: dictated Objective - Vital Signs/Intake and Output Vital Signs (last 24 hours): Temp Pulse Resp BP Pulse Ox 99.3 F 89 20 89/62 L 96 02/10/18 15:20 02/10/18 15:20 02/10/18 15:20 02/10/18 15:20 02/10/18 15:20 - Medications Medications: Current Medications Aspirin (Aspirin Chewable) 81 mg PO DAILY [facility] Last Admin: 02/10/18 14:13 Dose: 81 mg Calcium Acetate (Phoslo) 667 mg PO TID [facility] Last Admin: 02/10/18 17:19 Dose: 667 mg Docusate Sodium (Colace) 100 mg PO BID [facility] Last Admin: 02/10/18 17:19 Dose: 100 mg Epoetin Ventura (Procrit) 10,000 unit IV TTS [facility] Last Admin: 02/10/18 12:34 Dose: 10,000 unit Guaifenesin (Robitussin) 100 mg PO Q4H PRN PRN Reason: Cough Last Admin: 02/09/18 00:42 Dose: 100 mg Aztreonam 1 gm/ Sodium (Chloride) 100 mls @ 200 mls/hr IVPB Q12H [facility] PRN Reason: Protocol Last Admin: 02/10/18 16:08 Dose: 200 mls/hr Tigecycline 50 mg/ Sodium (Chloride) 100 mls @ 100 mls/hr IVPB Q12H [facility] PRN Reason: Protocol Last Admin: 02/10/18 17:19 Dose: 100 mls/hr Lactulose (Enulose) 20 gm PO HS [facility] Last Admin: 02/09/18 21:37 Dose: 20 gm Tramadol HCl (Ultram) 50 mg PO Q4H PRN PRN Reason: Pain, severe (8-10) Last Admin: 02/10/18 14:12 Dose: 50 mg - Labs Labs: 02/10/18 10:03 02/10/18 10:03
--- NOTE | 2018-02-11 00:16 | PN ---
DATE: SUBJECTIVE: The patient was feeling a little better. However, he did complain that his left leg was warm. Left thigh was warmer than the right. OBJECTIVE: VITAL SIGNS: T-max was 99.3, pulse 89, blood pressure 89/62, respirations are 20. GENERAL: He was awake and alert. HEENT: Head is atraumatic, normocephalic. NECK: Supple. LUNGS: Clear. No crackles or rales heard. HEART: S1, S2 is regular. ABDOMEN: Flabby, nontender. EXTREMITIES: Remain with bilateral edema, warmth, and redness. 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 The left leg appeared warmer today than the right and still remains. His white count is 22.5, hemoglobin 8.2, hematocrit 25.5, platelet count is 410. Sodium is 136, potassium is 5.6, still has hyperkalemia, chloride is 92. His creatinine is 12.5 and liver enzymes are still elevated but alk phos is increasing, and since alk phos is increasing, we will get ultrasound of the abdomen and may repeat the labs tomorrow again. We will follow. IMPRESSION: He has cellulitis, lymphangitis, elephantiasis of bilateral legs; morbid obesity; also end-stage renal disease and elevated WBC count secondary to above; and also increased liver enzymes due to sepsis. Alec Boucher MD
[2018-02-11] MEDS: Aztreonam 1 GM in Sodium Chloride 0.9% 100 ML IVPB SCH ×2 (03:06→16:30)
[2018-02-11 08:18] LABS: ALB/GLOB RATIO 0.6 (1.0-2.1); ALBUMIN 3.1 g/dL (3.5-5.0); CALCIUM 7.5 mg/dl (8.6-10.4)
--- NOTE | 2018-02-11 13:35 | CP.PCM.PN ---
Subjective - Date & Time of Evaluation Date of Evaluation: 02/11/18 Time of Evaluation: 13:31 - Subjective Subjective: sleepy s/p dialysis 02/10- over 4L fluid removed LFTs decreasing now- reglan was stopped cellulitis appears same BP controlled, low grade temps+ Objective - Vital Signs/Intake and Output Vital Signs (last 24 hours): Temp Pulse Resp BP Pulse Ox 99.5 F 90 20 161/92 H 96 02/11/18 07:30 02/11/18 07:30 02/11/18 07:30 02/11/18 07:30 02/11/18 07:30 Intake and Output: 02/11/18 02/11/18 06:59 18:59 Intake Total 300 Balance 300 - Medications Medications: Current Medications Aspirin (Aspirin Chewable) 81 mg PO DAILY [facility] Last Admin: 02/11/18 09:47 Dose: 81 mg Calcium Acetate (Phoslo) 667 mg PO TID [facility] Last Admin: 02/11/18 09:47 Dose: 667 mg Docusate Sodium (Colace) 100 mg PO BID [facility] Last Admin: 02/11/18 09:47 Dose: 100 mg Epoetin Ventura (Procrit) 10,000 unit IV TTS [facility] Last Admin: 02/10/18 12:34 Dose: 10,000 unit Guaifenesin (Robitussin) 100 mg PO Q4H PRN PRN Reason: Cough Last Admin: 02/09/18 00:42 Dose: 100 mg Aztreonam 1 gm/ Sodium (Chloride) 100 mls @ 200 mls/hr IVPB Q12H [facility] PRN Reason: Protocol Last Admin: 02/11/18 03:06 Dose: 200 mls/hr Tigecycline 50 mg/ Sodium (Chloride) 100 mls @ 100 mls/hr IVPB Q12H [facility] PRN Reason: Protocol Last Admin: 02/11/18 04:10 Dose: 100 mls/hr Lactulose (Enulose) 20 gm PO HS [facility] Last Admin: 02/10/18 23:02 Dose: 20 gm Tramadol HCl (Ultram) 100 mg PO Q4 PRN PRN Reason: Other Last Admin: 02/11/18 10:53 Dose: 100 mg - Labs Labs: 02/10/18 10:03 02/11/18 07:17 - Constitutional Appears: No Acute Distress, Chronically Ill - Head Exam Head Exam: ATRAUMATIC, NORMAL INSPECTION - Eye Exam Eye Exam: EOMI, Normal appearance - Neck Exam Neck Exam: Normal Inspection. absent: Tenderness - Respiratory Exam Respiratory Exam: Clear to Ausculation Bilateral, NORMAL BREATHING PATTERN - Cardiovascular Exam Cardiovascular Exam: REGULAR RHYTHM, +S1 - GI/Abdominal Exam GI & Abdominal Exam: Soft. absent: Tenderness - Extremities Exam Extremities Exam: Pedal Edema, Tenderness - Neurological Exam Neurological Exam: Alert, CN II-XII Intact - Skin Skin Exam: Dry, Vesicles, Warm Assessment and Plan (1) Cellulitis Status: Acute (2) Hyperkalemia Status: Acute (3) ESRD (end stage renal disease) Status: Acute - Assessment and Plan (Free Text) Plan: same dialysis with adequate UF IV ABs follow up LFTs LE wound care
[2018-02-11 14:34] LABS: BASO # 0.1 K/uL (0.0-0.2); BASO % 0.4 % (0.0-2.0); EOS # 0.2 K/uL (0.0-0.7); EOS % 0.6 % (0.0-4.0); HEMOGLOBIN 8.5 g/dL (12.0-18.0); LYMPH # 0.7 K/uL (1.0-4.3); LYMPH % 2.9 % (20.0-40.0); MEAN CORPUSCULAR HEMOGLOBIN 24.5 pg (27.0-31.0); MEAN CORPUSCULAR HGB CONC 32.3 g/dL (33.0-37.0); MEAN PLATELET VOLUME 7.9 fL (7.2-11.7); MONO # 2.3 K/uL (0.0-0.8); MONO % 9.7 % (0.0-10.0); NEUT # 20.8 K/uL (1.8-7.0); NEUT % 86.4 % (50.0-75.0); PLATELET COUNT 397 K/uL (130-400); RBC 3.48 Mil/uL (4.40-5.90); RED CELL DISTRIBUTION WIDTH 16.4 % (11.5-14.5); WHITE BLOOD COUNT 24.1 K/uL (4.8-10.8)
[2018-02-11 14:55] LABS: ANISOCYTOSIS SLIGHT; HYPOCHROMIC SLIGHT; LYMPHOCYTE 3 % (20-40); MICROCYTOSIS SLIGHT; MONOCYTE 10 % (0-10); NEUTROPHIL 87 % (50-75); PLATELET ESTIMATE NORMAL (NORMAL); POLYCHROMIC SLIGHT; TOTAL CELLS COUNTED 100
[2018-02-11 14:56] LABS: TARGET CELLS SLIGHT
[2018-02-11] MEDS ORDERED: Vancomycin 1 gm/NS 200 ml 1 GM/200 ML BAG IVPB STA (16:31)
--- NOTE | 2018-02-11 16:40 | CP.PCM.PN ---
Subjective - Date & Time of Evaluation Date of Evaluation: 02/11/18 - Subjective Subjective: Requested increase in pain meds earlier Objective - Vital Signs/Intake and Output Vital Signs (last 24 hours): Temp Pulse Resp BP Pulse Ox 98.7 F 103 H 20 93/58 L 94 L 02/11/18 15:35 02/11/18 15:35 02/11/18 15:35 02/11/18 15:35 02/11/18 15:35 Intake and Output: 02/11/18 02/11/18 06:59 18:59 Intake Total 300 Balance 300 - Medications Medications: Current Medications Aspirin (Aspirin Chewable) 81 mg PO DAILY [facility] Last Admin: 02/11/18 09:47 Dose: 81 mg Calcium Acetate (Phoslo) 667 mg PO TID [facility] Last Admin: 02/11/18 14:33 Dose: 667 mg Docusate Sodium (Colace) 100 mg PO BID [facility] Last Admin: 02/11/18 09:47 Dose: 100 mg Epoetin Ventura (Procrit) 10,000 unit IV TTS [facility] Last Admin: 02/10/18 12:34 Dose: 10,000 unit Guaifenesin (Robitussin) 100 mg PO Q4H PRN PRN Reason: Cough Last Admin: 02/09/18 00:42 Dose: 100 mg Aztreonam 1 gm/ Sodium (Chloride) 100 mls @ 200 mls/hr IVPB Q12H [facility] PRN Reason: Protocol Last Admin: 02/11/18 03:06 Dose: 200 mls/hr Tigecycline 50 mg/ Sodium (Chloride) 100 mls @ 100 mls/hr IVPB Q12H [facility] PRN Reason: Protocol Last Admin: 02/11/18 04:10 Dose: 100 mls/hr Vancomycin/Sodium Chloride (Vancomycin 1 Gm/Ns 200 Ml) 1 gm in 200 mls @ 133 mls/hr IVPB STAT [facility] PRN Reason: Protocol Stop: 02/11/18 18:01 Lactulose (Enulose) 20 gm PO HS [facility] Last Admin: 02/10/18 23:02 Dose: 20 gm Tramadol HCl (Ultram) 100 mg PO Q4 PRN PRN Reason: Other Last Admin: 02/11/18 10:53 Dose: 100 mg - Labs Labs: 02/11/18 14:02/11/18 07:17 Assessment and Plan - Assessment and Plan (Free Text) Assessment: cellulitis worseing wbc anbx per ID will reach out to her
--- NOTE | 2018-02-11 18:48 | CP.PCM.PN ---
Subjective - Date & Time of Evaluation Date of Evaluation: 02/11/18 Time of Evaluation: 03:15 - Subjective Subjective: dictated Objective - Vital Signs/Intake and Output Vital Signs (last 24 hours): Temp Pulse Resp BP Pulse Ox 98.7 F 103 H 20 93/58 L 94 L 02/11/18 15:35 02/11/18 15:35 02/11/18 15:35 02/11/18 15:35 02/11/18 15:35 Intake and Output: 02/11/18 02/11/18 06:59 18:59 Intake Total 300 Balance 300 - Medications Medications: Current Medications Aspirin (Aspirin Chewable) 81 mg PO DAILY [facility] Last Admin: 02/11/18 09:47 Dose: 81 mg Calcium Acetate (Phoslo) 667 mg PO TID [facility] Last Admin: 02/11/18 18:35 Dose: 667 mg Docusate Sodium (Colace) 100 mg PO BID [facility] Last Admin: 02/11/18 18:35 Dose: 100 mg Epoetin Ventura (Procrit) 10,000 unit IV TTS [facility] Last Admin: 02/10/18 12:34 Dose: 10,000 unit Guaifenesin (Robitussin) 100 mg PO Q4H PRN PRN Reason: Cough Last Admin: 02/09/18 00:42 Dose: 100 mg Heparin Sodium (Porcine) (Heparin) 5,000 units SC Q8 [facility] Aztreonam 1 gm/ Sodium (Chloride) 100 mls @ 200 mls/hr IVPB Q12H [facility] PRN Reason: Protocol Last Admin: 02/11/18 16:30 Dose: 200 mls/hr Tigecycline 50 mg/ Sodium (Chloride) 100 mls @ 100 mls/hr IVPB Q12H [facility] PRN Reason: Protocol Last Admin: 02/11/18 17:30 Dose: 100 mls/hr Lactobacillus Acidophilus (Bacid Acidophilus) 1 cap PO BID [facility] Lactulose (Enulose) 20 gm PO HS [facility] Last Admin: 02/10/18 23:02 Dose: 20 gm Tramadol HCl (Ultram) 100 mg PO Q4 PRN PRN Reason: Other Last Admin: 02/11/18 10:53 Dose: 100 mg - Labs Labs: 02/11/18 14:28 02/11/18 07:17
--- NOTE | 2018-02-12 00:40 | PN ---
DATE: SUBJECTIVE: The patient offers no new complaints. He still is not improving, however, and remains with cellulitis of both thighs. He is also morbidly obese and has elephantiasis. He has multiple folds on his both legs and thighs and it is hard to assess him. He has been on Azactam and Tygacil and still he is not improving, and I want to make sure, he is on heparin subcu. Platelets are okay. We will leave him on heparin subcu also as he is bed bound and is morbidly obese, and he is, however, started on chewable aspirin. PHYSICAL EXAMINATION: VITAL SIGNS: T-max is 98.7, blood pressure is 93/58, pulse is 103, respirations are 20. HEENT: He appears to be in no acute respiratory distress. Head is atraumatic and normocephalic. NECK: Supple. LUNGS: Clear. Decreased breath sounds bilaterally. HEART: S1 and S2. ABDOMEN: Flabby abdomen. EXTREMITIES: Thighs bilaterally have warmth and dry skin and multiple folds. Because of his color, we are not able to see the redness, but it is warm to touch. White count remains still elevated at 24.1, hemoglobin 8.5, hematocrit 26.4, platelet count is 397, and he remains with hyperkalemia as well as he has end-stage renal disease. His alk phos has gone up to 375. We will order an ultrasound, if they can see, and we will give him one dose of vancomycin today, and we will follow and place him and monitor his white count. IMPRESSION: He has cellulitis, elephantiasis, increased WBC count, increased LFTs, and we will follow. Alec Boucher MD
[2018-02-12] MEDS: Aztreonam 1 GM in Sodium Chloride 0.9% 100 ML IVPB SCH (04:05)
[2018-02-12 07:47] LABS: BASO % 0.2 % (0.0-2.0); EOS # 0.3 K/uL (0.0-0.7); HEMOGLOBIN 8.3 g/dL (12.0-18.0); LYMPH # 0.8 K/uL (1.0-4.3); LYMPH % 3.4 % (20.0-40.0); MEAN CELL VOLUME 76.2 fL (80.0-94.0); MEAN CORPUSCULAR HEMOGLOBIN 24.5 pg (27.0-31.0); MEAN CORPUSCULAR HGB CONC 32.1 g/dL (33.0-37.0); MEAN PLATELET VOLUME 7.5 fL (7.2-11.7); NEUT # 21.5 K/uL (1.8-7.0); NEUT % 87.4 % (50.0-75.0); PLATELET COUNT 402 K/uL (130-400); RBC 3.41 Mil/uL (4.40-5.90); RED CELL DISTRIBUTION WIDTH 16.5 % (11.5-14.5); WHITE BLOOD COUNT 24.6 K/uL (4.8-10.8)
[2018-02-12 08:08] LABS: ALB/GLOB RATIO 0.6 (1.0-2.1); CALCIUM 6.8 mg/dl (8.6-10.4)
[2018-02-12 09:54] LABS: ANISOCYTOSIS SLIGHT; LYMPHOCYTE 4 % (20-40); MONOCYTE 8 % (0-10); NEUTROPHIL 88 % (50-75); PLATELET ESTIMATE NORMAL (NORMAL); POIKILOCYTOSIS SLIGHT; TOTAL CELLS COUNTED 100
[2018-02-12 09:55] LABS: LARGE PLATELETS PRESENT; MICROCYTOSIS SLIGHT; OVALOCYTES SLIGHT; TARGET CELLS SLIGHT
[2018-02-12] MEDS: Lactobacillus Acidophilus 500 MU Cap PO SCH ×2 (09:59→17:47)
[2018-02-12] MEDS: guaiFENesin 100 mg/5 ml Syrup UD PO PRN (10:00)
--- NOTE | 2018-02-12 10:04 | US ---
HISTORY: increased liver enzymes COMPARISON: None. TECHNIQUE: Sonographic evaluation of the abdomen. FINDINGS: LIVER: Measures 24.1 cm. Diffusely increased echogenicity of the liver parenchyma. Consistent with fatty infiltration. Smooth contour. No mass. No biliary dilatation. GALLBLADDER: Unremarkable. No gallstones. COMMON BILE DUCT: Measures 5 mm. No stones. No dilatation. PANCREAS: Grossly limited visualization RIGHT KIDNEY: Measures 9.7cm. Normal echogenicity. No calculus, mass, or hydronephrosis. LEFT KIDNEY: Measures 10.7cm. Normal echogenicity. No calculus, mass, or hydronephrosis. SPLEEN: Normal in size and contour. No mass. AORTA: No aneurysmal dilatation. IVC: Unremarkable. OTHER FINDINGS: None. IMPRESSION: Hepatomegaly with diffuse fatty infiltration. No evidence of biliary obstruction, cholelithiasis or cholecystitis.
--- NOTE | 2018-02-12 10:09 | CP.PCM.PN ---
Subjective - Date & Time of Evaluation Date of Evaluation: 02/12/18 Time of Evaluation: 10:06 - Subjective Subjective: Seen in HD; still lethargic- responds appropriately abdominal US- shows fatty liver LFTs decreasing Hg low, TSAT 12%- start IV Fe BP low- will still try to remove 3000ml fluids with HD- can give IV albumin if needed LEs appear same Objective - Vital Signs/Intake and Output Vital Signs (last 24 hours): Temp Pulse Resp BP Pulse Ox 98.3 F 90 20 90/62 L 96 02/12/18 08:51 02/12/18 08:51 02/12/18 08:51 02/12/18 08:51 02/12/18 08:51 Intake and Output: 02/12/18 02/12/18 06:59 18:59 Intake Total 1000 Balance 1000 - Medications Medications: Current Medications Aspirin (Aspirin Chewable) 81 mg PO DAILY [facility] Last Admin: 02/12/18 09:58 Dose: Not Given Calcium Acetate (Phoslo) 667 mg PO TID [facility] Last Admin: 02/12/18 09:59 Dose: Not Given Docusate Sodium (Colace) 100 mg PO BID [facility] Last Admin: 02/12/18 09:59 Dose: Not Given Epoetin Ventura (Procrit) 10,000 unit IV TTS [facility] Last Admin: 02/10/18 12:34 Dose: 10,000 unit Guaifenesin (Robitussin) 100 mg PO Q4H PRN PRN Reason: Cough Last Admin: 02/12/18 10:00 Dose: 100 mg Heparin Sodium (Porcine) (Heparin) 5,000 units SC Q8 [facility] Last Admin: 02/12/18 05:53 Dose: 5,000 units Aztreonam 1 gm/ Sodium (Chloride) 100 mls @ 200 mls/hr IVPB Q12H [facility] PRN Reason: Protocol Last Admin: 02/12/18 04:05 Dose: 200 mls/hr Tigecycline 50 mg/ Sodium (Chloride) 100 mls @ 100 mls/hr IVPB Q12H [facility] PRN Reason: Protocol Last Admin: 02/12/18 05:50 Dose: 100 mls/hr Lactobacillus Acidophilus (Bacid Acidophilus) 1 cap PO BID [facility] Last Admin: 02/12/18 09:59 Dose: Not Given Lactulose (Enulose) 20 gm PO HS [facility] Last Admin: 02/11/18 21:12 Dose: 20 gm Tramadol HCl (Ultram) 100 mg PO Q4 PRN PRN Reason: Other Last Admin: 02/11/18 10:53 Dose: 100 mg - Labs Labs: 02/12/18 07:35 02/12/18 07:35 - Constitutional Appears: No Acute Distress, Chronically Ill - Head Exam Head Exam: ATRAUMATIC, NORMAL INSPECTION - Eye Exam Eye Exam: EOMI, Normal appearance - Neck Exam Neck Exam: Normal Inspection. absent: Tenderness - Respiratory Exam Respiratory Exam: Clear to Ausculation Bilateral, NORMAL BREATHING PATTERN - Cardiovascular Exam Cardiovascular Exam: REGULAR RHYTHM, +S1 - GI/Abdominal Exam GI & Abdominal Exam: Soft, Tenderness - Extremities Exam Extremities Exam: Pedal Edema, Tenderness - Neurological Exam Neurological Exam: Alert, CN II-XII Intact - Skin Skin Exam: Dry, Rash, Warm Assessment and Plan (1) Cellulitis Status: Acute (2) Hyperkalemia Status: Acute (3) ESRD (end stage renal disease) Status: Acute - Assessment and Plan (Free Text) Plan: IV ABs add IV Fe Remove excess fluids with HD as BP permits
[2018-02-12] MEDS: Epoetin Alfa 10,000 unit/ml Dialysis IV SCH (14:08)
--- NOTE | 2018-02-12 15:01 | CP.PCM.PN ---
Subjective - Date & Time of Evaluation Date of Evaluation: 02/12/18 Time of Evaluation: 15:04 - Subjective Subjective: PT reports feeling weak, no energy, not himself no pain now. States he has not requested pain meds today. states when he even walks to bathroom he feels no energy. Has not been out of bed except to bathroom. Denies depression, but states he does not feel himself. I asked about family and stated he "has no one he associates with" in is familly. Both parents diseased. Objective - Vital Signs/Intake and Output Vital Signs (last 24 hours): Temp Pulse Resp BP Pulse Ox 98.5 F 86 18 190/63 H 96 02/12/18 11:06 02/12/18 13:45 02/12/18 11:06 02/12/18 13:45 02/12/18 10:15 Intake and Output: 02/12/18 02/12/18 06:59 18:59 Intake Total 1000 Balance 1000 - Medications Medications: Current Medications Aspirin (Aspirin Chewable) 81 mg PO DAILY [facility] Last Admin: 02/12/18 09:58 Dose: Not Given Calcium Acetate (Phoslo) 667 mg PO TID [facility] Last Admin: 02/12/18 13:48 Dose: Not Given Docusate Sodium (Colace) 100 mg PO BID [facility] Last Admin: 02/12/18 09:59 Dose: Not Given Epoetin Ventura (Procrit) 10,000 unit IV TTS [facility] Last Admin: 02/12/18 14:08 Dose: Not Given Ferric Sodium Gluconate Complex (Ferrlecit) 125 mg IVPB DAILY [facility] Stop: 02/16/18 10:16 Guaifenesin (Robitussin) 100 mg PO Q4H PRN PRN Reason: Cough Last Admin: 02/12/18 10:00 Dose: 100 mg Heparin Sodium (Porcine) (Heparin) 5,000 units SC Q8 [facility] Last Admin: 02/12/18 13:47 Dose: Not Given Tigecycline 50 mg/ Sodium (Chloride) 100 mls @ 100 mls/hr IVPB Q12H [facility] PRN Reason: Protocol Last Admin: 02/12/18 05:50 Dose: 100 mls/hr Vancomycin/Sodium Chloride (Vancomycin 1 Gm/Ns 200 Ml) 1 gm in 200 mls @ 166.7 mls/hr IVPB TTS [facility] PRN Reason: Protocol Stop: 02/20/18 10:01 Lactobacillus Acidophilus (Bacid Acidophilus) 1 cap PO BID [facility] Last Admin: 02/12/18 09:59 Dose: Not Given Lactulose (Enulose) 20 gm PO HS [facility] Last Admin: 02/11/18 21:12 Dose: 20 gm Tramadol HCl (Ultram) 25 mg PO TID PRN PRN Reason: Pain, moderate (4-7) - Labs Labs: 02/12/18 07:35 02/12/18 07:35 - Constitutional Appears: Non-toxic - Eye Exam Eye Exam: Normal appearance - ENT Exam ENT Exam: Mucous Membranes Moist - Respiratory Exam Respiratory Exam: Clear to Ausculation Bilateral - Cardiovascular Exam Cardiovascular Exam: REGULAR RHYTHM, +S1, +S2 (left thigh swollen and warm to touch). absent: JVD, Rubs Assessment and Plan - Assessment and Plan (Free Text) Assessment: severe extensive cellulitis of right thight body habitus and lymphadema are affecting recovery. No fever or blood cultures but wbc not improving. spoke to Id yesterday. Continue antibiotics. bp; up earlier , now better weak; PT will need rehab very possibly Pain. decrease Tramadol to 25 mg prn cbc in Am
--- NOTE | 2018-02-12 19:46 | CP.PCM.PN ---
Subjective - Date & Time of Evaluation Date of Evaluation: 02/12/18 Time of Evaluation: 04:00 - Subjective Subjective: dictated Objective - Vital Signs/Intake and Output Vital Signs (last 24 hours): Temp Pulse Resp BP Pulse Ox 98.6 F 91 H 20 107/56 L 94 L 02/12/18 15:25 02/12/18 16:00 02/12/18 15:25 02/12/18 15:25 02/12/18 15:25 - Medications Medications: Current Medications Aspirin (Aspirin Chewable) 81 mg PO DAILY [facility] Last Admin: 02/12/18 09:58 Dose: Not Given Calcium Acetate (Phoslo) 667 mg PO TID [facility] Last Admin: 02/12/18 17:47 Dose: 667 mg Docusate Sodium (Colace) 100 mg PO BID [facility] Last Admin: 02/12/18 17:47 Dose: 100 mg Epoetin Ventura (Procrit) 10,000 unit IV TTS [facility] Last Admin: 02/12/18 14:08 Dose: Not Given Ferric Sodium Gluconate Complex (Ferrlecit) 125 mg IVPB DAILY [facility] Stop: 02/16/18 10:16 Guaifenesin (Robitussin) 100 mg PO Q4H PRN PRN Reason: Cough Last Admin: 02/12/18 10:00 Dose: 100 mg Heparin Sodium (Porcine) (Heparin) 5,000 units SC Q8 [facility] Last Admin: 02/12/18 13:47 Dose: Not Given Tigecycline 50 mg/ Sodium (Chloride) 100 mls @ 100 mls/hr IVPB Q12H [facility] PRN Reason: Protocol Last Admin: 02/12/18 17:46 Dose: 100 mls/hr Vancomycin/Sodium Chloride (Vancomycin 1 Gm/Ns 200 Ml) 1 gm in 200 mls @ 166.7 mls/hr IVPB TTS [facility] PRN Reason: Protocol Stop: 02/20/18 10:01 Lactobacillus Acidophilus (Bacid Acidophilus) 1 cap PO BID [facility] Last Admin: 02/12/18 17:47 Dose: 1 cap Lactulose (Enulose) 20 gm PO HS [facility] Last Admin: 02/11/18 21:12 Dose: 20 gm Tramadol HCl (Ultram) 25 mg PO TID PRN PRN Reason: Pain, moderate (4-7) - Labs Labs: 02/12/18 07:35 02/12/18 07:35
[2018-02-13] MEDS: Tramadol 25 mg PO PRN ×2 (04:01→17:19)
[2018-02-13] MEDS: guaiFENesin 100 mg/5 ml Syrup UD PO PRN (06:52)
[2018-02-13 08:45] LABS: BASO # 0.1 K/uL (0.0-0.2); BASO % 0.5 % (0.0-2.0); EOS # 0.4 K/uL (0.0-0.7); EOS % 1.9 % (0.0-4.0); LYMPH # 0.8 K/uL (1.0-4.3); LYMPH % 3.8 % (20.0-40.0); MEAN CELL VOLUME 76.5 fL (80.0-94.0); MEAN CORPUSCULAR HEMOGLOBIN 24.2 pg (27.0-31.0); MEAN CORPUSCULAR HGB CONC 31.6 g/dL (33.0-37.0); MEAN PLATELET VOLUME 7.6 fL (7.2-11.7); MONO # 2.3 K/uL (0.0-0.8); MONO % 10.2 % (0.0-10.0); NEUT # 18.8 K/uL (1.8-7.0); NEUT % 83.6 % (50.0-75.0); PLATELET COUNT 376 K/uL (130-400); RBC 3.31 Mil/uL (4.40-5.90); RED CELL DISTRIBUTION WIDTH 16.7 % (11.5-14.5); WHITE BLOOD COUNT 22.5 K/uL (4.8-10.8)
[2018-02-13 10:19] LABS: ANISOCYTOSIS SLIGHT; BANDS 1 % (0-2); EOSINOPHIL 2 % (0-4); HYPOCHROMIC SLIGHT; LYMPHOCYTE 9 % (20-40); MONOCYTE 14 % (0-10); NEUTROPHIL 74 % (50-75); PLATELET ESTIMATE NORMAL (NORMAL); TARGET CELLS SLIGHT; TOTAL CELLS COUNTED 100
[2018-02-13 10:20] LABS: MICROCYTOSIS SLIGHT; OVALOCYTES SLIGHT; POIKILOCYTOSIS SLIGHT; SPHEROCYTES SLIGHT; TEARDROP CELLS SLIGHT; TOXIC GRANULATION PRESENT
[2018-02-13 10:21] LABS: SCHISTOCYTES SLIGHT
[2018-02-13] MEDS: Lactobacillus Acidophilus 500 MU Cap PO SCH ×2 (10:27→17:19)
[2018-02-13] MEDS: Ferric Sodium Gluconat Complex 62.5 mg/5 ml Vial IVPB SCH (10:28)
[2018-02-14] MEDS: Tramadol 25 mg PO PRN ×2 (04:51→16:30)
--- NOTE | 2018-02-14 09:01 | PN ---
DATE: 02/12/2018 SUBJECTIVE: Carl is not doing well. His white count still remains elevated. He is still having pain on the right thigh. PHYSICAL EXAMINATION: VITAL SIGNS: T-max is 98.6, pulse 90, blood pressure 107/56, respirations are 20. HEENT: Head is atraumatic, normocephalic. NECK: Supple. LUNGS: Clear. HEART: S1, S2 is regular. ABDOMEN: Soft, flabby, nontender. EXTREMITIES: Right thigh has a lot of edema, and warmth has decreased, however, is decreasing. He remains with lymphedema, multiple falls. LABORATORY DATA: His white count is still 24.6 when hemoglobin is 8.3, hematocrit 26, platelet count is 402. ASSESSMENT AND PLAN: He has extensive cellulitis and elephantiasis. At this time, I will continue vancomycin on days of dialysis and continue Tygacil, will discontinue Azactam and will follow, and hopefully the white count will go down with this treatment. Alec Boucher MD
[2018-02-14] MEDS: Lactobacillus Acidophilus 500 MU Cap PO SCH ×2 (09:44→17:37)
[2018-02-14] MEDS: Ferric Sodium Gluconat Complex 62.5 mg/5 ml Vial IVPB SCH (09:44)
--- NOTE | 2018-02-14 11:47 | CP.PCM.PN ---
Subjective - Date & Time of Evaluation Date of Evaluation: 02/14/18 Time of Evaluation: 11:44 - Subjective Subjective: s/p dialysis 02/12- UF 4400ml LFTs improved sluggish probably from pain meds afebrile - on IV ABs LE cellulitis appears same phos very elevated- reversal ca-phos Objective - Vital Signs/Intake and Output Vital Signs (last 24 hours): Temp Pulse Resp BP Pulse Ox 98.0 F 79 20 112/68 95 02/14/18 07:00 02/14/18 07:45 02/14/18 07:00 02/14/18 07:00 02/14/18 07:00 Intake and Output: 02/14/18 02/14/18 06:59 18:59 Intake Total 700 Balance 700 - Medications Medications: Current Medications Aspirin (Aspirin Chewable) 81 mg PO DAILY [facility] Last Admin: 02/14/18 09:44 Dose: 81 mg Calcium Acetate (Phoslo) 667 mg PO TID [facility] Last Admin: 02/14/18 09:44 Dose: 667 mg Docusate Sodium (Colace) 100 mg PO BID [facility] Last Admin: 02/14/18 09:48 Dose: Not Given Epoetin Ventura (Procrit) 10,000 unit IV TTS [facility] Last Admin: 02/12/18 14:08 Dose: Not Given Ferric Sodium Gluconate Complex (Ferrlecit) 125 mg IVPB DAILY [facility] Stop: 02/16/18 10:16 Last Admin: 02/14/18 09:44 Dose: 125 mg Guaifenesin (Robitussin) 100 mg PO Q4H PRN PRN Reason: Cough Last Admin: 02/13/18 06:52 Dose: 100 mg Heparin Sodium (Porcine) (Heparin) 5,000 units SC Q8 [facility] Last Admin: 02/14/18 05:47 Dose: 5,000 units Vancomycin/Sodium Chloride (Vancomycin 1 Gm/Ns 200 Ml) 1 gm in 200 mls @ 166.7 mls/hr IVPB TTS [facility] PRN Reason: Protocol Stop: 02/20/18 10:01 Lactobacillus Acidophilus (Bacid Acidophilus) 1 cap PO BID [facility] Last Admin: 02/14/18 09:44 Dose: 1 cap Lactulose (Enulose) 20 gm PO HS [facility] Last Admin: 02/13/18 21:09 Dose: Not Given Tramadol HCl (Ultram) 25 mg PO TID PRN PRN Reason: Pain, moderate (4-7) Last Admin: 02/14/18 04:51 Dose: 25 mg - Labs Labs: 02/13/18 08:26 02/12/18 07:35 - Constitutional Appears: Confused, Chronically Ill - Head Exam Head Exam: ATRAUMATIC, NORMAL INSPECTION - Eye Exam Eye Exam: EOMI, Normal appearance - Neck Exam Neck Exam: Tenderness. absent: Normal Inspection - Respiratory Exam Respiratory Exam: Clear to Ausculation Bilateral, NORMAL BREATHING PATTERN - Cardiovascular Exam Cardiovascular Exam: REGULAR RHYTHM, +S1 - GI/Abdominal Exam GI & Abdominal Exam: Soft. absent: Tenderness - Extremities Exam Extremities Exam: Pedal Edema, Tenderness - Neurological Exam Neurological Exam: Awake, CN II-XII Intact - Skin Skin Exam: Dry, Vesicles, Warm Assessment and Plan (1) Cellulitis Status: Acute (2) Hyperkalemia Status: Acute (3) ESRD (end stage renal disease) Status: Acute - Assessment and Plan (Free Text) Plan: dialysis TTS with aggressive UF advised on hyperkalemia IV Fe/ ESAs IV ABs increase phos binder dosage
--- NOTE | 2018-02-14 16:05 | CP.PCM.PN ---
Subjective - Date & Time of Evaluation Date of Evaluation: 02/14/18 Time of Evaluation: 03:30 - Subjective Subjective: dictated Objective - Vital Signs/Intake and Output Vital Signs (last 24 hours): Temp Pulse Resp BP Pulse Ox 98.4 F 80 20 129/74 94 L 02/14/18 15:07 02/14/18 15:07 02/14/18 15:07 02/14/18 15:07 02/14/18 15:07 Intake and Output: 02/14/18 02/14/18 06:59 18:59 Intake Total 700 300 Balance 700 300 - Medications Medications: Current Medications Aspirin (Aspirin Chewable) 81 mg PO DAILY [facility] Last Admin: 02/14/18 09:44 Dose: 81 mg Calcium Acetate (Phoslo) 2,001 mg PO TIDCC [facility] Last Admin: 02/14/18 13:02 Dose: 2,001 mg Docusate Sodium (Colace) 100 mg PO BID [facility] Last Admin: 02/14/18 09:48 Dose: Not Given Epoetin Ventura (Procrit) 10,000 unit IV TTS [facility] Last Admin: 02/12/18 14:08 Dose: Not Given Ferric Sodium Gluconate Complex (Ferrlecit) 125 mg IVPB DAILY [facility] Stop: 02/16/18 10:16 Last Admin: 02/14/18 09:44 Dose: 125 mg Guaifenesin (Robitussin) 100 mg PO Q4H PRN PRN Reason: Cough Last Admin: 02/13/18 06:52 Dose: 100 mg Heparin Sodium (Porcine) (Heparin) 5,000 units SC Q8 [facility] Last Admin: 02/14/18 13:02 Dose: 5,000 units Vancomycin/Sodium Chloride (Vancomycin 1 Gm/Ns 200 Ml) 1 gm in 200 mls @ 166.7 mls/hr IVPB TTS [facility] PRN Reason: Protocol Stop: 02/20/18 10:01 Tigecycline 50 mg/ Sodium (Chloride) 100 mls @ 100 mls/hr IVPB Q12H [facility] PRN Reason: Protocol Lactobacillus Acidophilus (Bacid Acidophilus) 1 cap PO BID [facility] Last Admin: 02/14/18 09:44 Dose: 1 cap Lactulose (Enulose) 20 gm PO HS [facility] Last Admin: 02/13/18 21:09 Dose: Not Given Tramadol HCl (Ultram) 25 mg PO TID PRN PRN Reason: Pain, moderate (4-7) Last Admin: 02/14/18 04:51 Dose: 25 mg - Labs Labs: 02/13/18 08:26 02/12/18 07:35
--- NOTE | 2018-02-14 17:07 | CP.PCM.PN ---
Subjective - Date & Time of Evaluation Date of Evaluation: 02/14/18 Time of Evaluation: 17:07 - Subjective Subjective: Roofing Applicator little better but now co left hip pain after, according to pt nurse was helping turn in bed and landed/fell on top of his left side accidentally. no chest pain feels right thight is gettting better has not been oob Objective - Vital Signs/Intake and Output Vital Signs (last 24 hours): Temp Pulse Resp BP Pulse Ox 98.4 F 79 20 129/74 94 L 02/14/18 15:07 02/14/18 15:30 02/14/18 15:07 02/14/18 15:07 02/14/18 15:07 Intake and Output: 02/14/18 02/14/18 06:59 18:59 Intake Total 700 300 Balance 700 300 - Medications Medications: Current Medications Aspirin (Aspirin Chewable) 81 mg PO DAILY [facility] Last Admin: 02/14/18 09:44 Dose: 81 mg Calcium Acetate (Phoslo) 2,001 mg PO TIDCC [facility] Last Admin: 02/14/18 13:02 Dose: 2,001 mg Docusate Sodium (Colace) 100 mg PO BID [facility] Last Admin: 02/14/18 09:48 Dose: Not Given Epoetin Ventura (Procrit) 10,000 unit IV TTS [facility] Last Admin: 02/12/18 14:08 Dose: Not Given Ferric Sodium Gluconate Complex (Ferrlecit) 125 mg IVPB DAILY [facility] Stop: 02/16/18 10:16 Last Admin: 02/14/18 09:44 Dose: 125 mg Guaifenesin (Robitussin) 100 mg PO Q4H PRN PRN Reason: Cough Last Admin: 02/13/18 06:52 Dose: 100 mg Heparin Sodium (Porcine) (Heparin) 5,000 units SC Q8 [facility] Last Admin: 02/14/18 13:02 Dose: 5,000 units Vancomycin/Sodium Chloride (Vancomycin 1 Gm/Ns 200 Ml) 1 gm in 200 mls @ 166.7 mls/hr IVPB TTS [facility] PRN Reason: Protocol Stop: 02/20/18 10:01 Tigecycline 50 mg/ Sodium (Chloride) 100 mls @ 100 mls/hr IVPB Q12H [facility] PRN Reason: Protocol Lactobacillus Acidophilus (Bacid Acidophilus) 1 cap PO BID [facility] Last Admin: 02/14/18 09:44 Dose: 1 cap Lactulose (Enulose) 20 gm PO HS [facility] Last Admin: 02/13/18 21:09 Dose: Not Given Tramadol HCl (Ultram) 25 mg PO TID PRN PRN Reason: Pain, moderate (4-7) Last Admin: 02/14/18 16:30 Dose: 25 mg - Labs Labs: 02/13/18 08:26 02/12/18 07:35 - Constitutional Appears: Well, No Acute Distress - Eye Exam Eye Exam: Normal appearance - ENT Exam ENT Exam: Mucous Membranes Moist - Respiratory Exam Respiratory Exam: Clear to Ausculation Bilateral - Cardiovascular Exam Cardiovascular Exam: REGULAR RHYTHM, RRR. absent: JVD, Rubs (right thight swelling , hard to appreciate change but less tender ) Assessment and Plan - Assessment and Plan (Free Text) Assessment: extensive leg cellulitis cont abx cbc ambulation; none ordered PT will need rehab co new left hip pain; xray flexeril for muscle ache
--- NOTE | 2018-02-15 07:36 | PN ---
DATE: 02/14/2018 SUBJECTIVE: The patient was falling asleep. I think he probably has sleep apnea but arousable. He states, his leg is feeling better. However, his white count did not improve much. It came down from 24.6 to 22.5. He remains afebrile and offers no other complaints. He did have some diarrhea as he was given lactulose and has no other complaints except for he says minimal improvement. He is not moving much. He is a big with 410 pounds. VITAL SIGNS: T-max is 98.4, pulse 80, blood pressure is 129/74, respirations are 20. HEENT: Head is atraumatic, normocephalic. NECK: Supple. LUNGS: Decreased breath sounds. HEART: S1, S2 regular. ABDOMEN: Flabby, nontender. EXTREMITIES: Both thighs, right thigh appears less warm but remains with edema, swelling, and elephantiasis. Bilateral legs have multiple folds and unable to circuit judge much due to the weight problem. White count is 22.5, hemoglobin 8, hematocrit 25.4, platelet count is 376, so we will continue with vancomycin and Tygacil. He has been here from 10 days and still there is no improvement in his WBC count. We will continue IV antibiotics at this time and will follow. Alec Boucher MD
[2018-02-15] MEDS: guaiFENesin 100 mg/5 ml Syrup UD PO PRN (09:04)
[2018-02-15] MEDS: Lactobacillus Acidophilus 500 MU Cap PO SCH ×2 (09:05→19:57)
[2018-02-15] MEDS ORDERED: Vancomycin 1 gm/NS 200 ml 1 GM/200 ML BAG IVPB SCH (10:00)
--- NOTE | 2018-02-15 10:04 | CP.PCM.PN ---
Subjective - Date & Time of Evaluation Date of Evaluation: 02/15/18 Time of Evaluation: 10:03 - Subjective Subjective: seen and examined Labs noted no n/v/d/sob/cp/cough/f/c/dizziness/weakness/numbness/rash Objective - Vital Signs/Intake and Output Vital Signs (last 24 hours): Temp Pulse Resp BP Pulse Ox 97.8 F 74 20 112/72 96 02/15/18 07:30 02/15/18 08:00 02/15/18 07:30 02/15/18 07:30 02/15/18 07:30 Intake and Output: 02/15/18 02/15/18 06:59 18:59 Intake Total 725 Balance 725 - Medications Medications: Current Medications Aspirin (Aspirin Chewable) 81 mg PO DAILY [facility] Last Admin: 02/15/18 09:04 Dose: 81 mg Cyclobenzaprine HCl (Flexeril) 10 mg PO ONCE PRN PRN Reason: Muscle spasm Last Admin: 02/14/18 20:12 Dose: 10 mg Docusate Sodium (Colace) 100 mg PO BID [facility] Last Admin: 02/15/18 09:04 Dose: 100 mg Epoetin Ventura (Procrit) 10,000 unit IV TTS [facility] Last Admin: 02/12/18 14:08 Dose: Not Given Ferric Sodium Gluconate Complex (Ferrlecit) 125 mg IVPB DAILY [facility] Stop: 02/16/18 10:16 Last Admin: 02/14/18 09:44 Dose: 125 mg Guaifenesin (Robitussin) 100 mg PO Q4H PRN PRN Reason: Cough Last Admin: 02/15/18 09:04 Dose: 100 mg Heparin Sodium (Porcine) (Heparin) 5,000 units SC Q8 [facility] Last Admin: 02/15/18 05:59 Dose: 5,000 units Vancomycin/Sodium Chloride (Vancomycin 1 Gm/Ns 200 Ml) 1 gm in 200 mls @ 166.7 mls/hr IVPB TTS [facility] PRN Reason: Protocol Stop: 02/20/18 10:01 Tigecycline 50 mg/ Sodium (Chloride) 100 mls @ 100 mls/hr IVPB Q12H [facility] PRN Reason: Protocol Last Admin: 02/15/18 03:50 Dose: 100 mls/hr Lactobacillus Acidophilus (Bacid Acidophilus) 1 cap PO BID [facility] Last Admin: 02/15/18 09:05 Dose: 1 cap Lactulose (Enulose) 20 gm PO HS [facility] Last Admin: 02/14/18 22:02 Dose: Not Given Sevelamer Carbonate (Renvela) 2.4 gm PO TIDCC [facility] Tramadol HCl (Ultram) 25 mg PO TID PRN PRN Reason: Pain, moderate (4-7) Last Admin: 02/14/18 16:30 Dose: 25 mg - Labs Labs: 02/13/18 08:26 02/12/18 07:35 - Constitutional Appears: No Acute Distress, Older Than Stated Age, Chronically Ill - Head Exam Head Exam: NORMAL INSPECTION, NORMOCEPHALIC - Eye Exam Eye Exam: Normal appearance, PERRL Pupil Exam: NORMAL ACCOMODATION - ENT Exam ENT Exam: Mucous Membranes Moist, Normal Exam - Neck Exam Neck Exam: Full ROM, Normal Inspection - Respiratory Exam Respiratory Exam: Decreased Breath Sounds, NORMAL BREATHING PATTERN - Cardiovascular Exam Cardiovascular Exam: REGULAR RHYTHM, RRR - GI/Abdominal Exam GI & Abdominal Exam: Distended, Soft - Extremities Exam Additional comments: b/l chronic stasis and skin changes - Neurological Exam Neurological Exam: Alert, Awake, Oriented x3 - Psychiatric Exam Psychiatric exam: Normal Affect, Normal Mood Assessment and Plan (1) Hyperkalemia Status: Acute (2) Hypertension Status: Acute (3) Anemia Status: Acute (4) Cellulitis Status: Acute (5) ESRD (end stage renal disease) Status: Acute - Assessment and Plan (Free Text) Assessment: esrd -poor clearance hyperkalemia hypercalcemia / hyperphos cellulitis plan: increase hd time to 4hrs change phoslo to renvela renal diet recommend follow vancomycin levels for adequate dosing
[2018-02-15] MEDS: Sevelamer Carb 2.4 gm/Packet PO SCH ×4 (13:00→19:58)
--- NOTE | 2018-02-15 15:19 | RAD ---
PROCEDURE: Radiographs of the pelvis and bilateral hips HISTORY: hip pain COMPARISON: None. FINDINGS: BONES: Pelvis: Unremarkable. Right hip:Unremarkable. Left hip:Unremarkable. JOINTS: Right hip: Unremarkable. Left hip: Unremarkable. Sacroiliac Joints: Unremarkable. Pubic symphysis: Unremarkable. SOFT TISSUES: Normal. OTHER FINDINGS: None. IMPRESSION: Unremarkable radiographs of the hips and pelvis.
[2018-02-15 15:23] LABS: HEMOGLOBIN 8.2 g/dL (12.0-18.0); MEAN CELL VOLUME 75.1 fL (80.0-94.0); MEAN CORPUSCULAR HEMOGLOBIN 24.4 pg (27.0-31.0); MEAN CORPUSCULAR HGB CONC 32.4 g/dL (33.0-37.0); MEAN PLATELET VOLUME 7.5 fL (7.2-11.7); RBC 3.36 Mil/uL (4.40-5.90); RED CELL DISTRIBUTION WIDTH 16.4 % (11.5-14.5); WHITE BLOOD COUNT 16.4 K/uL (4.8-10.8)
[2018-02-15 15:42] LABS: ALB/GLOB RATIO 0.6 (1.0-2.1); ALBUMIN 2.6 g/dL (3.5-5.0); CALCIUM 6.5 mg/dl (8.6-10.4)
--- NOTE | 2018-02-15 16:01 | CP.PCM.PN ---
Subjective - Date & Time of Evaluation Date of Evaluation: 02/15/18 Time of Evaluation: 15:59 - Subjective Subjective: PT SEEN BY DR. TERRAZAS TODAY AND CLEARED FOR D/C WITH 1 WEEK MORE OF VANCO DURING HD AND TYGACIL Q12 HOURS. PT HAD XRAYS AND LABS DONE ORDERED BY ATTENDING. RESULTS RELAYED TO DR. SCOTT AND IT IS OK PER HER TO D/C THE PT TODAY TO [facility]. CM AND SW AWARE; SW WILL ARRANGE THE TRANSPORTATION. PT TO BE SENT TO [facility] HE IS STABLE POST-HD. NO FURTHER ORDERS. Objective - Vital Signs/Intake and Output Vital Signs (last 24 hours): Temp Pulse Resp BP Pulse Ox 97.8 F 74 20 112/72 96 02/15/18 07:30 02/15/18 08:00 02/15/18 07:30 02/15/18 07:30 02/15/18 07:30 Intake and Output: 02/15/18 02/15/18 06:59 18:59 Intake Total 725 Balance 725 - Medications Medications: Current Medications Aspirin (Aspirin Chewable) 81 mg PO DAILY [facility] Last Admin: 02/15/18 09:04 Dose: 81 mg Cyclobenzaprine HCl (Flexeril) 10 mg PO ONCE PRN PRN Reason: Muscle spasm Last Admin: 02/14/18 20:12 Dose: 10 mg Docusate Sodium (Colace) 100 mg PO BID [facility] Last Admin: 02/15/18 09:04 Dose: 100 mg Epoetin Ventura (Procrit) 10,000 unit IV TTS [facility] Last Admin: 02/12/18 14:08 Dose: Not Given Ferric Sodium Gluconate Complex (Ferrlecit) 125 mg IVPB DAILY [facility] Stop: 02/16/18 10:16 Last Admin: 02/14/18 09:44 Dose: 125 mg Guaifenesin (Robitussin) 100 mg PO Q4H PRN PRN Reason: Cough Last Admin: 02/15/18 09:04 Dose: 100 mg Heparin Sodium (Porcine) (Heparin) 5,000 units SC Q8 [facility] Last Admin: 02/15/18 13:00 Dose: 5,000 units Vancomycin/Sodium Chloride (Vancomycin 1 Gm/Ns 200 Ml) 1 gm in 200 mls @ 166.7 mls/hr IVPB TTS [facility] PRN Reason: Protocol Stop: 02/20/18 10:01 Tigecycline 50 mg/ Sodium (Chloride) 100 mls @ 100 mls/hr IVPB Q12H [facility] PRN Reason: Protocol Last Admin: 02/15/18 03:50 Dose: 100 mls/hr Lactobacillus Acidophilus (Bacid Acidophilus) 1 cap PO BID [facility] Last Admin: 02/15/18 09:05 Dose: 1 cap Lactulose (Enulose) 20 gm PO HS [facility] Last Admin: 02/14/18 22:02 Dose: Not Given Sevelamer Carbonate (Renvela) 2.4 gm PO TIDCC [facility] Last Admin: 02/15/18 13:15 Dose: Not Given Tramadol HCl (Ultram) 50 mg PO Q8H PRN PRN Reason: Pain, moderate (4-7) Last Admin: 02/15/18 10:49 Dose: 50 mg - Labs Labs: 02/15/18 15:18 02/15/18 15:18
[2018-02-15] MEDS: Epoetin Alfa 10,000 unit/ml Dialysis IV SCH (16:59)
[2018-02-15] MEDS: Ferric Sodium Gluconat Complex 62.5 mg/5 ml Vial IVPB SCH (17:00)
[2018-02-15 17:20] VITALS: TEMP 98.1
[2018-02-15 17:33] VITALS: RESP 16
--- NOTE | 2018-02-15 18:22 | CP.PCM.DIS ---
Provider - Provider Date of Admission: 02/07/18 08:18 Attending physician: Ivet Scott MD Hospital Course - Lab Results Lab Results: Micro Results 02/11/18 10:45 Blood-During Dialysis Blood Culture - Preliminary NO GROWTH AFTER 3 DAYS 02/11/18 11:00 Blood-During Dialysis Blood Culture - Preliminary NO GROWTH AFTER 3 DAYS 02/07/18 16:00 Blood-Venous Blood Culture - Final NO GROWTH AFTER 5 DAYS 02/07/18 16:00 Blood-Venous Gram Stain - Final TEST NOT PERFORMED 02/07/18 16:30 Blood-Venous Blood Culture - Final NO GROWTH AFTER 5 DAYS 02/07/18 16:30 Blood-Venous Gram Stain - Final TEST NOT PERFORMED 02/04/18 19:30 Blood-Venous Blood Culture - Final NO GROWTH AFTER 5 DAYS 02/04/18 19:30 Blood-Venous Gram Stain - Final TEST NOT PERFORMED 02/04/18 19:00 Blood-Venous Blood Culture - Final NO GROWTH AFTER 5 DAYS 02/04/18 19:00 Blood-Venous Gram Stain - Final TEST NOT PERFORMED Most Recent Lab Values WBC 16.4 K/uL (4.8-10.8) H 02/15/18 15:18 RBC 3.36 Mil/uL (4.40-5.90) L 02/15/18 15:18 Hgb 8.2 g/dL (12.0-18.0) L 02/15/18 15:18 Hct 25.2 % (35.0-51.0) L 02/15/18 15:18 MCV 75.1 fL (80.0-94.0) L 02/15/18 15:18 MCH 24.4 pg (27.0-31.0) L 02/15/18 15:18 MCHC 32.4 g/dL (33.0-37.0) L 02/15/18 15:18 RDW 16.4 % (11.5-14.5) H 02/15/18 15:18 Plt Count 363 K/uL (130-400) 02/15/18 15:18 MPV 7.5 fL (7.2-11.7) 02/15/18 15:18 Neut % (Auto) 83.6 % (50.0-75.0) H 02/13/18 08:26 Lymph % (Auto) 3.8 % (20.0-40.0) L 02/13/18 08:26 Johnson % (Auto) 10.2 % (0.0-10.0) H 02/13/18 08:26 Eos % (Auto) 1.9 % (0.0-4.0) 02/13/18 08:26 Baso % (Auto) 0.5 % (0.0-2.0) 02/13/18 08:26 Neut # (Auto) 18.8 K/uL (1.8-7.0) H 02/13/18 08:26 Lymph # (Auto) 0.8 K/uL (1.0-4.3) L 02/13/18 08:26 Johnson # (Auto) 2.3 K/uL (0.0-0.8) H 02/13/18 08:26 Eos # (Auto) 0.4 K/uL (0.0-0.7) 02/13/18 08:26 Baso # (Auto) 0.1 K/uL (0.0-0.2) 02/13/18 08:26 Neutrophils % (Manual) 74 % (50-75) 02/13/18 08:26 Band Neutrophils % 1 % (0-2) 02/13/18 08:26 Lymphocytes % (Manual) 9 % (20-40) L 02/13/18 08:26 Monocytes % (Manual) 14 % (0-10) H 02/13/18 08:26 Eosinophils % (Manual) 2 % (0-4) 02/13/18 08:26 Basophils % (Manual) 1 % (0-2) 02/08/18 07:12 Toxic Granulation Present 02/13/18 08:26 Platelet Estimate Normal (NORMAL) 02/13/18 08:26 Large Platelets Present 02/12/18 07:35 Polychromasia Slight 02/11/18 14:28 Hypochromasia (manual) Slight 02/13/18 08:26 Poikilocytosis (manual Slight 02/13/18 08:26 Anisocytosis (manual) Slight 02/13/18 08:26 Microcytosis (manual) Slight 02/13/18 08:26 Spherocytes Slight 02/13/18 08:26 Target Cells Slight 02/13/18 08:26 Tear Drop Cells Slight 02/13/18 08:26 Ovalocytes Slight 02/13/18 08:26 Schistocytes Slight 02/13/18 08:26 Sodium 136 mmol/L (132-148) 02/15/18 15:18 Potassium 5.4 mmol/L (3.6-5.2) H 02/15/18 15:18 Chloride 94 mmol/L (98-107) L 02/15/18 15:18 Carbon Dioxide 21 mmol/L (22-30) L 02/15/18 15:18 Anion Gap 27 (10-20) H 02/15/18 15:18 BUN 134 mg/dL (9-20) H* D 02/15/18 15:18 Creatinine 12.6 mg/dL (0.8-1.5) H* 02/15/18 15:18 Est GFR ( Amer) 5 02/15/18 15:18 Est GFR (Non-Af Amer) 4 02/15/18 15:18 POC Glucose (mg/dL) 96 mg/dL (65-110) 02/05/18 21:30 Random Glucose 83 mg/dL (75-110) 02/15/18 15:18 Calcium 6.5 mg/dl (8.6-10.4) L 02/15/18 15:18 Phosphorus 9.4 mg/dL (2.5-4.5) H 02/15/18 15:18 % Saturation 12 (20-55) L 02/10/18 10:03 Ferritin 681.0 ng/mL 02/10/18 10:03 Total Bilirubin 0.8 mg/dL (0.2-1.3) 02/15/18 15:18 AST 32 U/L (17-59) 02/15/18 15:18 ALT 38 U/L (21-72) 02/15/18 15:18 Alkaline Phosphatase 291 U/L (38-126) H 02/15/18 15:18 Total Creatine Kinase 48 U/L (55-170) L 02/05/18 11:20 CK-MB (Mass) 0.26 ng/mL (0.0-3.38) 02/05/18 11:20 Troponin I < 0.0120 ng/mL (0.00-0.120) 02/05/18 11:20 NT-Pro-B Natriuret Pep 966 pg/mL (0-900) H 02/04/18 18:35 Total Protein 7.1 g/dL (6.3-8.3) 02/15/18 15:18 Albumin 2.6 g/dL (3.5-5.0) L 02/15/18 15:18 Globulin 4.4 gm/dL (2.2-3.9) H 02/15/18 15:18 Albumin/Globulin Ratio 0.6 (1.0-2.1) L 02/15/18 15:18 Stool Occult Blood Positive (NEGATIVE) H 02/11/18 04:15 Random Vancomycin 7.95 ug/mL 02/15/18 15:18 Hepatitis A IgM Ab Negative (NEGATIVE) 02/10/18 10:03 Hepatitis A Ab Total Nonreactive (Nonreactive) 02/10/18 10:03 Hep Bs Antigen Negative (NEGATIVE) 02/10/18 10:03 Hep Bs Antibody Negative (NEGATIVE) 02/10/18 10:03 Hepatitis C Antibody Negative (NEGATIVE) 02/10/18 10:03 - Hospital Course Hospital Course: Pt was admitted for cellulilitis of right thigh ct scan showed extensive cellulitiis All blood cultures were negative seen by ID who managed antibiotics Discharge Exam - Head Exam Head Exam: NORMAL INSPECTION, NORMOCEPHALIC Discharge Plan - Discharge Medications Prescriptions: Vancomycin 1 gm/NS 200 ml 1 gm IVPB TTS #4 bag - Follow Up Plan Condition: GOOD Disposition: HOME/ ROUTINE Additional Instructions: -CONTACT DR. SCOTT FOR ANY QUESTIONS REGARDING HOSPITALIZATION. -CONTINUE MEDICATIONS PER THE MED REC FORM. CHANGES CAN BE MADE BY THE ATTENDING PHYSICIAN. -PER DR. TERRAZAS (ID): CONTINUE VANCOMYCIN 1 GM IV Q TTS (HD DAYS) FOR 1 MORE WEEK (GIVE ON 02/17/18, 02/19/18, 02/22/18, AND LAST DOSE ON 02/24/18); TYGACIL 50 MG IV Q12 HOURS FOR 1 MORE WEEK (START ON 02/16/18 AND LAST DOSE TO BE GIVEN ON 02/22/18). Referrals: Zion Agosto MD [Staff Provider] - Ivet Scott MD [Staff Provider] - Jt Mota MD [Staff Provider] - Alec Terrazas MD [Staff Provider] -
[2018-02-15 20:09] VITALS: BP 98/55; PULSE 73; O2SAT 97
--- NOTE | 2018-02-15 23:10 | CP.PCM.PN ---
Subjective - Date & Time of Evaluation Date of Evaluation: 02/15/18 Time of Evaluation: 04:00 - Subjective Subjective: dictated Objective - Vital Signs/Intake and Output Vital Signs (last 24 hours): Temp Pulse Resp BP Pulse Ox 98.1 F 73 16 98/55 L 97 02/15/18 15:15 02/15/18 20:00 02/15/18 20:00 02/15/18 20:00 02/15/18 20:00 - Labs Labs: 02/15/18 15:18 02/15/18 15:18
--- NOTE | 2018-02-16 03:20 | PN ---
DATE: 02/15/2018 SUBJECTIVE: The patient was getting dialysis and seen today. He remains afebrile, but his white count is still high. 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 PHYSICAL EXAMINATION: VITAL SIGNS: Pulse is 78, blood pressure 111/64, respirations 18. HEAD: Atraumatic, normocephalic. NECK: Supple. LUNGS: Had decreased breath sounds on both bases. HEART: S1 and S2 is regular. ABDOMEN: Flabby, nontender. No guarding and no rigidity present. EXTREMITIES: Bilateral extremities remain with warmth, swelling and edema. LABORATORY DATA: His white count was today better 16.4, hemoglobin 8.2, hematocrit 25.2, platelet count is 363 and so is finally coming down. He is a dialysis patient, so BUN is 134, creatinine is 2.8, remains high. PLAN: He is on vancomycin 1 g and I suggested that he gets 1 more week of treatment with vancomycin and Tygacil both as with Tygacil alone we were not able to bring the white count down, and he was still not improving on his redness and his weight is 410 pounds, maybe one drug alone was not enough in this patient with dialysis. Alec Boucher MD
--- NOTE | 2018-02-16 18:04 | PQF SEPSIS ---
This form is a permanent part of the medical record Dr. Alegre, Pt. with elevated WBC. ID documented sepsis in his consult. If you concur please document your findings in your discharge summary. Thank you Clarification of your documentation is requested to better reflect the severity of illness and intensity of treatment of your patient. Indicators present [] Temp < 96.8 or > 100.4 [] WBC count > 12,000/mm3 or <000/mm3 or 10% immature neutrophils [] Heart Rate > 90 [] Respiratory Rate > 20 [] Fever or hypothermia [] Chills [] Positive blood cultures [] Hypotension [] Metabolic acidosis (Elevated lactate level, anion gap or reduced blood pH) [] Acute confusion /Altered Mental Status [] Shock [] Other: [] Location in the medical record that reflects the above clinical findings: [] Treatment Provided: [] PHYSICIAN'S RESPONSE Based on your medical judgment of the clinical indicators outlined above, are you treating this patient for a known or suspected: [] Sepsis / Septicemia Please specify organism if known [] [] SIRS (Systemic Inflammatory Response Syndrome) [] Severe Sepsis (Sepsis with Associated Organ Dysfunction) [] Fever of Unknown Origin [] Other, please indicate: [] [] If Unable to Determine, please check the box, sign and date. Present On Admission (POA) Indicator: [] Present at the time of admission [] Not present at the time of admission [] Clinically Undetermined In responding to this query, please exercise your independent professional judgment. The fact that a question is asked does not imply that any particular answer is desired or expected. Thank you for your clarification on this documentation. 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
== END 2018-02-15 22:25 | DRG 602 ==
LOC: C.ER 17:09 → C.9E 19:07 → C.6T 19:46 → OBSVTOIN 02-07 08:18
PROVIDERS: ADMIT Internal Medicine; ATTEND Internal Medicine
PROC: 5A1D70Z Performance of Urinary Filtration, Intermittent, Less than 6 Hours Per Day (ICD-10-PCS; principal; 2018-02-08)
DX: L03.115 Cellulitis of right lower limb (principal); N18.6 End stage renal disease; E11.22 Type 2 diabetes mellitus with diabetic chronic kidney disease; I12.0 Hypertensive chronic kidney disease with stage 5 chronic kidney disease or end stage renal disease; Z68.43 Body mass index [BMI] 50.0-59.9, adult; E87.5 Hyperkalemia; E66.01 Morbid (severe) obesity due to excess calories; L03.116 Cellulitis of left lower limb; E83.52 Hypercalcemia; J44.9 Chronic obstructive pulmonary disease, unspecified; K21.9 Gastro-esophageal reflux disease without esophagitis; K59.00 Constipation, unspecified; K76.0 Fatty (change of) liver, not elsewhere classified; Z91.15 Patient's noncompliance with renal dialysis; Z99.2 Dependence on renal dialysis; G89.29 Other chronic pain; M25.552 Pain in left hip; R07.89 Other chest pain; D63.1 Anemia in chronic kidney disease; I89.0 Lymphedema, not elsewhere classified; F17.210 Nicotine dependence, cigarettes, uncomplicated; Z74.01 Bed confinement status

== ENCOUNTER 2018-06-01 10:27 | Inpatient (IN) | payer MEDICARE ==
[2018-06-01 10:28] VITALS: BMI 55.7
[2018-06-01] MEDS ORDERED: Vancomycin 1 gm/NS 200 ml 1 GM/200 ML BAG IVPB ONE (11:00)
[2018-06-01] MEDS ORDERED: Morphine 4 MG/ML VIAL ONE (11:08)
[2018-06-01 11:09] LABS: BASO # 0.1 K/uL (0.0-0.2); EOS # 0.3 K/uL (0.0-0.7); EOS % 4.4 % (0.0-4.0); HEMOGLOBIN 9.7 g/dL (12.0-18.0); LYMPH # 0.9 K/uL (1.0-4.3); MEAN CORPUSCULAR HEMOGLOBIN 25.5 pg (27.0-31.0); MEAN CORPUSCULAR HGB CONC 32.8 g/dL (33.0-37.0); MEAN PLATELET VOLUME 8.2 fL (7.2-11.7); MONO # 0.2 K/uL (0.0-0.8); MONO % 2.3 % (0.0-10.0); NEUT # 5.6 K/uL (1.8-7.0); NEUT % 79.3 % (50.0-75.0); NRBC % 0.1 % (0.0-2.0); RBC 3.78 Mil/uL (4.40-5.90); RED CELL DISTRIBUTION WIDTH 18.8 % (11.5-14.5)
--- NOTE | 2018-06-01 11:10 | C.PDOC ---
History Of Present Illness Patient ZAN from home c/o sudden onset of right leg pain, chills since waking up. Patient has h/o ESRD on HD with chronic lymphedema, recurrent cellulitis in his legs. His last HD was Wednesday, missed his HD yesterday and was supposed to go today at 1pm. Patient denies chest pain, abdominal pain, nausea/ vomiting/diarrhea, SOB. 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 Alegre Time Seen by Provider: 06/01/18 10:28 Chief Complaint (Nursing): Lower Extremity Problem/Injury History Per: Patient, EMS History/Exam Limitations: no limitations Onset/Duration Of Symptoms: Hrs Current Symptoms Are (Timing): Still Present Severity: Moderate Past Medical History Reviewed: Historical Data, Nursing Documentation, Vital Signs Vital Signs: Last Vital Signs Temp 98.9 F 06/02/18 16:20 Pulse 90 06/02/18 16:20 Resp 20 06/02/18 16:20 BP 107/51 L 06/02/18 17:05 Pulse Ox 98 06/02/18 17:25 - Medical History PMH: Anemia, Asthma, Bronchitis, COPD, Diabetes, HTN, Peripheral Edema, End Stage Renal Disease, Chronic Kidney Disease, Chronic Pain - [facility] Procedures (02/07/18) DIALYSIS ARTERIOVENOSTOM (05/07/14) DILATION OF LEFT BRACHIAL VEIN, PERCUTANEOUS APPROACH (08/04/16) DRESSING OF WOUND NEC (05/29/14) EXTIRPATION OF MATTER FROM L BRACH ART, PERC APPROACH (08/04/16) EXTIRPATION OF MATTER FROM LEFT BRACHIAL VEIN, PERC APPROACH (08/04/16) HEMODIALYSIS (05/29/14) INSERTION OF INFUSION DEV INTO SUP VENA CAVA, PERC APPROACH (10/22/17) OTHER FASCIECTOMY (05/29/14) PACKED CELL TRANSFUSION (05/29/14) PERCUTAN NEEDLE BIOPSY OF KIDNEY (01/30/14) PERFORMANCE OF URINARY FILTRATION, MULTIPLE (08/04/17) ULTRASONOGRAPHY OF SUPERIOR VENA CAVA, GUIDANCE (10/22/17) VENOUS CATHETERIZATION FOR RENAL DIALYSIS (01/18/14) VENOUS CATHETERIZATION NEC (09/22/13) Family History: States: No Known Family Hx - Social History Hx Tobacco Use: No Hx Alcohol Use: Yes (social) Hx Substance Use: No - Immunization History Hx Tetanus Toxoid Vaccination: Yes (w/in 5 years) Hx Influenza Vaccination: Yes Hx Pneumococcal Vaccination: No Review Of Systems Constitutional: Positive for: Chills Cardiovascular: Negative for: Chest Pain, Palpitations Respiratory: Negative for: Shortness of Breath Gastrointestinal: Negative for: Nausea, Vomiting, Abdominal Pain, Diarrhea Skin: Positive for: Other (right leg pain, redness) Physical Exam - Physical Exam Appears: Well, Non-toxic, In Acute Distress (in moderate pain, moaning, morbidly obese ) Skin: Other (see extremity exam) Head: Normacephalic Eye(s): bilateral: Normal Inspection Oral Mucosa: Moist Cardiovascular: Rhythm Regular (tachycardic ) Respiratory: Normal Breath Sounds, No Rales, No Rhonchi, No Wheezing Gastrointestinal/Abdominal: Normal Exam, Bowel Sounds, Soft, No Tenderness, Other (obese ) Extremity: Tenderness (right leg warm to touch at thigh/posterior knee, mild erythema posterior knee with small bullae ) Pulses: Left Dorsalis Pedis: Normal, Right Dorsalis Pedis: Normal Neurological/Psych: Oriented x3 ED Course And Treatment - Laboratory Results Result Diagrams: 06/02/18 11:13 06/02/18 11:13 ECG: Interpreted By Me, Viewed By Me (sinus tachycardia 115 bpm, left axis deviation, T wave inversions V3-V6, no acute ST changes) ECG Interpretation: Abnormal O2 Sat by Pulse Oximetry: 98 (ra) Pulse Ox Interpretation: Normal - Radiology CXR: Interpreted by Me, Viewed By Me CXR Interpretation: Yes: No Acute Disease. No: Infiltrates Progress Note: Blood work, CXR, EKG ordered and reviewed. Patient meets code sepsis criteria, code sepsis called. Vancomycin given for cellulitis, no PCN/ cephalosporin given due to patient allergies. Patient states he does not want to be admitted under prior PMD Dr. Alegre. 12:10- Spoke with Dr. Mota, he will call in dialysis orders. 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 Critical Care Time - Critical Care Note Total Time (in mins): 40 Documented critical care: time excludes all time spent performing seperately billable procedures. Disposition - Disposition Disposition: HOSPITALIZED Disposition Time: 11:37 Condition: FAIR - Clinical Impression Clinical Impression: Sepsis, Cellulitis of right leg, ESRD on hemodialysis, ESRD needing dialysis Decision To Admit - Pt Status Changed To: Hospital Disposition Of: Inpatient - Admit Certification Admit to Inpatient:: After my assessment, the patient will require hospitalization for at least two midnights. This is because of the severity of symptoms shown, intensity of services needed, and/or the medical risk in this patient being treated as an outpatient. - InPatient: Physician Admission Certification: I certify that this patient requires 2 or more midnights of care for the following reason:: see notes - . Bed Request Type: Telemetry Admitting Physician: Aminta Gaming Patient Diagnosis: Sepsis, Cellulitis of right leg, ESRD on hemodialysis, ESRD needing dialysis
[2018-06-01 11:11] LABS: WHITE BLOOD COUNT 7.1 K/uL (4.8-10.8)
[2018-06-01 11:11] LABS: VENOUS BLOOD GAS BASE EXCESS 2.1 mmol/L (0.0-2.0); VENOUS BLOOD GAS PCO2 52 mmHg (40-60); VENOUS BLOOD GAS PO2 17 mm/Hg (30-55); VENOUS BLOOD PH 7.35 (7.32-7.43)
[2018-06-01 11:12] LABS: MEAN CELL VOLUME 77.9 fL (80.0-94.0)
--- NOTE | 2018-06-01 11:23 | RAD ---
PROCEDURE: CHEST RADIOGRAPH, 1 VIEW HISTORY: ADMISSION COMPARISON: Chest radiograph dated 02/04/2018. FINDINGS: LUNGS: Prominence of pulmonary vasculature may be secondary to AP technique and/or pulmonary vascular congestion. PLEURA: No pneumothorax or pleural fluid seen. CARDIOVASCULAR: Cardiomediastinal silhouette stably enlarged. OSSEOUS STRUCTURES: Unchanged. VISUALIZED UPPER ABDOMEN: Normal. OTHER FINDINGS: None. IMPRESSION: Prominence of the pulmonary vasculature may be secondary to AP technique and/or pulmonary vascular congestion. No focal consolidation or pleural effusion.
[2018-06-01 11:24] LABS: INR 1.1; PROTHROMBIN TIME 12.3 SECONDS (9.7-12.2)
[2018-06-01 11:31] LABS: ALB/GLOB RATIO 0.9 (1.0-2.1); ALBUMIN 4.2 g/dL (3.5-5.0); CALCIUM 8.5 mg/dl (8.6-10.4)
[2018-06-01 11:37] LABS: CK-MB 0.36 ng/mL (0.0-3.38)
--- NOTE | 2018-06-01 14:44 | CP.PCM.HP ---
Past Patient History - Infectious Disease Hx of Infectious Diseases: None - Past Medical History & Family History Past Medical History?: Yes - Past Social History Smoking Status: Current Some Days Smoker - CARDIAC Hx Hypertension: Yes Hx Peripheral Edema: Yes - PULMONARY Hx Asthma: Yes Hx Bronchitis: Yes Hx Chronic Obstructive Pulmonary Disease (COPD): Yes - NEUROLOGICAL Hx Neurological Disorder: No - HEENT Hx HEENT Problems: No - RENAL Hx Chronic Kidney Disease: Yes - ENDOCRINE/METABOLIC Hx Diabetes Mellitus Type 2: Yes - HEMATOLOGICAL/ONCOLOGICAL Hx Anemia: Yes - INTEGUMENTARY Hx Dermatological Problems: Yes Hx Cellulitis: Yes (BILATERAL LEGS) - MUSCULOSKELETAL/RHEUMATOLOGICAL Hx Musculoskeletal Disorders: Yes Hx Falls: Yes Other/Comment: Morbid obesity - GASTROINTESTINAL Hx Gastrointestinal Disorders: Yes Hx Gastroesophageal Reflux: Yes - GENITOURINARY/GYNECOLOGICAL Hx Genitourinary Disorders: No - PSYCHIATRIC Hx Substance Use: No - SURGICAL HISTORY Hx Surgeries: Yes (Left arm AV Fistula) Hx Vascular Surgery: Yes (ACCESS FOR DIALYSIS) - ANESTHESIA Hx Anesthesia: Yes Hx Anesthesia Reactions: No Hx Malignant Hyperthermia: No Meds Allergies/Adverse Reactions: Allergies Allergy/AdvReac Type Severity Reaction Status Date / Time Penicillins Allergy Verified 10/26/17 16:12 tazobactam [From Zosyn] Allergy Verified 02/04/18 17:27 piperacillin AdvReac ITCHING, Verified 10/22/17 03:21 SHORTNESS OF BREATH PET DANDER Allergy Severe CONGESTION Uncoded 10/22/17 03:21 Physical Exam - Constitutional Appears: Well - Head Exam Head Exam: ATRAUMATIC, NORMAL INSPECTION, NORMOCEPHALIC - Eye Exam Eye Exam: EOMI, Normal appearance, PERRL Pupil Exam: NORMAL ACCOMODATION, PERRL - ENT Exam ENT Exam: Mucous Membranes Moist, Normal Exam - Neck Exam Neck exam: Positive for: Normal Inspection - Respiratory Exam Respiratory Exam: Decreased Breath Sounds - Cardiovascular Exam Cardiovascular Exam: REGULAR RHYTHM, +S1, +S2 - GI/Abdominal Exam GI & Abdominal Exam: Diminished Bowel Sounds, Soft - Rectal Exam Rectal Exam: Deferred Results - Vital Signs Recent Vital Signs: Last Vital Signs Temp 98 F 06/01/18 14:17 Pulse 89 06/01/18 14:17 Resp 18 06/01/18 14:17 BP 106/73 06/01/18 14:17 Pulse Ox 98 06/01/18 14:17 - Labs Result Diagrams: 06/01/18 11:06 06/01/18 11:06 Labs: Laboratory Results - last 24 hr 06/01/18 06/01/18 06/01/18 10:36 11:04 11:06 WBC 7.1 D RBC 3.78 L Hgb 9.7 L Hct 29.4 L MCV 77.9 L D MCH 25.5 L MCHC 32.8 L RDW 18.8 H Plt Count 305 MPV 8.2 Neut % (Auto) 79.3 H Lymph % (Auto) 13.0 L Barry % (Auto) 2.3 Eos % (Auto) 4.4 H Baso % (Auto) 1.0 Neut # (Auto) 5.6 Lymph # (Auto) 0.9 L Barry # (Auto) 0.2 Eos # (Auto) 0.3 Baso # (Auto) 0.1 PT INR APTT pO2 17 L VBG pH 7.35 VBG pCO2 52 VBG HCO3 24.5 VBG Total CO2 30.3 H VBG O2 Sat (Calc) 23.9 L VBG Base Excess 2.1 H VBG Potassium 7.3 H* Sodium 136.0 Chloride 101.0 Glucose 90 Lactate 3.7 H Crit Value Called To Crit Value Called By Sanya stapleton,finance officer Crit Value Read Back Y Blood Gas Notified Time 1120 Potassium Carbon Dioxide Anion Gap BUN Creatinine Est GFR ( Amer) Est GFR (Non-Af Amer) POC Glucose (mg/dL) 71 Random Glucose Lactic Acid Calcium Total Bilirubin AST ALT Alkaline Phosphatase Total Creatine Kinase CK-MB (Mass) Total Protein Albumin Globulin Albumin/Globulin Ratio Venous Blood Potassium 7.3 H* 06/01/18 06/01/18 06/01/18 11:06 11:06 13:53 WBC RBC Hgb Hct MCV MCH MCHC RDW Plt Count MPV Neut % (Auto) Lymph % (Auto) Barry % (Auto) Eos % (Auto) Baso % (Auto) Neut # (Auto) Lymph # (Auto) Barry # (Auto) Eos # (Auto) Baso # (Auto) PT 12.3 H INR 1.1 APTT 39 H pO2 VBG pH VBG pCO2 VBG HCO3 VBG Total CO2 VBG O2 Sat (Calc) VBG Base Excess VBG Potassium Sodium 139 Chloride 96 L Glucose Lactate Crit Value Called To Crit Value Called By Crit Value Read Back Blood Gas Notified Time Potassium 6.1 H Carbon Dioxide 28 Anion Gap 21 H BUN 51 H Creatinine 11.1 H* Est GFR ( Amer) 6 Est GFR (Non-Af Amer) 5 POC Glucose (mg/dL) Random Glucose 97 Lactic Acid 2.2 H Calcium 8.5 L Total Bilirubin 1.0 AST 42 ALT 18 L D Alkaline Phosphatase 56 Total Creatine Kinase 68 CK-MB (Mass) 0.36 Total Protein 9.0 H Albumin 4.2 Globulin 4.8 H Albumin/Globulin Ratio 0.9 L Venous Blood Potassium
--- NOTE | 2018-06-01 17:10 | PCM.SEPTIC ---
Sepsis Progress Note - Reassessment Type Date of Evaluation: 06/01/18 Time of Evaluation: 17:09 Reassessment Type: Non-invasive reassessment - Non Invasive Reassessment Were the most recent vital sign reviewed: Yes Vital Sign (Latest): Temp Pulse Resp BP Pulse Ox 98 F 87 18 111/76 98 06/01/18 16:33 06/01/18 16:33 06/01/18 16:33 06/01/18 16:33 06/01/18 16:33 Cardiovascular: Yes: Regular Rate, Rhythm, Edema. No: JVD Respiratory: Yes: Decreased Breath Sounds. No: Crackles, Rales, Rhonchi, Wheezing, Respiratory Distress Capillary Refill: Normal (Less than 2 sec) Skin: Normal Color
[2018-06-01] MEDS: Sevelamer Carb 2.4 gm/Packet PO SCH (18:16)
[2018-06-01] MEDS ORDERED: Sod Polystyrene Sulf 15 gm/60 ml Susp PO ONE (19:15)
[2018-06-01] MEDS ORDERED: Amikacin Sulfate 750 MG in Sodium Chloride 0.9% 250 ML IVPB ONE (19:45)
--- NOTE | 2018-06-01 20:18 | CP.PCM.PN ---
Subjective - Date & Time of Evaluation Date of Evaluation: 06/01/18 Time of Evaluation: 20:17 - Subjective Subjective: patient seen as an emergency K 6.1 He refuses all rx Objective - Vital Signs/Intake and Output Vital Signs (last 24 hours): Temp Pulse Resp BP Pulse Ox 100.7 F H 98 H 20 100/65 95 06/01/18 19:59 06/01/18 19:59 06/01/18 19:59 06/01/18 19:59 06/01/18 19:59 - Medications Medications: Current Medications Acetaminophen (Tylenol 325mg Tab) 650 mg PO Q6 PRN PRN Reason: Fever >100.4 F Calcium Acetate (Phoslo) 667 mg PO TID [facility] Last Admin: 06/01/18 18:17 Dose: Not Given Docusate Sodium (Colace) 100 mg PO BID [facility] Last Admin: 06/01/18 18:16 Dose: Not Given Epoetin [place] (Procrit) 10,000 unit IV TTS [facility] Furosemide (Lasix) 40 mg PO DAILY [facility] Amikacin Sulfate 750 mg/ (Sodium Chloride) 253 mls @ 250 mls/hr IVPB ONCE ONE PRN Reason: Protocol Stop: 06/01/18 20:45 Aztreonam 1 gm/ Sodium (Chloride) 100 mls @ 100 mls/hr IVPB DAILY [facility] PRN Reason: Protocol Clindamycin Phosphate 600 mg/ (Sodium Chloride) 54 mls @ 100 mls/hr IVPB Q8H JOSSIE PRN Reason: Protocol Morphine Sulfate (Morphine) 6 mg IVP Q4H PRN PRN Reason: Pain, severe (8-10) Pantoprazole Sodium (Protonix Ec Tab) 40 mg PO DAILY [facility] Rosuvastatin Calcium (Crestor) 20 mg PO HS JOSSIE Sevelamer Carbonate (Renvela) 2.4 gm PO TIDCC [facility] Last Admin: 06/01/18 18:16 Dose: Not Given Tramadol HCl (Ultram) 50 mg PO Q8H PRN PRN Reason: Pain, moderate (4-7) - Labs Labs: 06/01/18 11:06 06/01/18 11:06 PT 12.3 SECONDS (9.7-12.2) H 06/01/18 11:06 INR 1.1 06/01/18 11:06 APTT 39 SECONDS (21-34) H 06/01/18 11:06
[2018-06-01] MEDS: Aztreonam 1 GM in Sodium Chloride 0.9% 100 ML IVPB SCH (21:38)
[2018-06-02] MEDS: (Novolog) Insulin Aspart, Recombinant 100 u/ml 10 ml vial SC SCH ×4 (08:14→21:49)
[2018-06-02] MEDS: Sevelamer Carb 2.4 gm/Packet PO SCH ×3 (08:37→20:09)
[2018-06-02] MEDS: Pantoprazole 40 mg EC Tab PO SCH (10:00)
[2018-06-02] MEDS: Epoetin Alfa 10,000 unit/ml Dialysis IV SCH ×2 (10:00→18:37)
--- NOTE | 2018-06-02 10:17 | CP.PCM.CON ---
History of Present Illness - History of Present Illness History of Present Illness: 52 y/o AA came from home c/o sudden onset of right leg pain, chills since waking up. Patient has h/o ESRD on HD with chronic lymphedema, recurrent cellulitis in his legs. His last HD was Monday 05/28 and missed his HD yesterday and was supposed to go 06/01 for HD.. Patient denies chest pain, abdominal pain, nausea/vomiting/diarrhea, SOB. Attempt at dialysis failed 06/01 due to thrombosed AV graft PMH: ESRD COPD CHRONIC LYMPHEDEMA RECURRENT LE CELLULITIS MORBID OBESITY DL CHRONIC ANEMIA PSH: AV GRAFT Review of Systems - Constitutional Constitutional: Lethargy, Weakness - EENT Eyes: absent: As Per HPI, Blind Spots, Blurred Vision, Change in Vision, Decreased Night Vision, Diplopia, Discharge, Dry Eye, Exophthalmos, Floaters, Irritation, Itchy Eyes, Loss of Peripheral Vision, Pain, Photophobia, Requires Corrective Lenses, Sees Flashes, Spots in Vision, Tunnel Vision, Other Visual Disturbances, Loss of Vision, Other Ears: absent: As Per HPI, Decreased Hearing, Ear Discharge, Ear Pain, Tinnitus, Abnormal Hearing, Disequilibrium, Dizziness, Other Nose/Mouth/Throat: absent: As Per HPI, Epistaxis, Nasal Congestion, Nasal Discharge, Nasal Obstruction, Nasal Trauma, Nose Pain, Post Nasal Drip, Sinus Pain, Sinus Pressure, Bleeding Gums, Change in Voice, Dental Pain, Dry Mouth, Dysphagia, Halitosis, Hoarsness, Lip Swelling, Mouth Lesions, Mouth Pain, Odynophagia, Sore Throat, Throat Swelling, Tongue Swelling, Facial Pain, Neck Pain, Neck Mass, Other - Cardiovascular Cardiovascular: Dyspnea on Exertion, Leg Edema - Respiratory Respiratory: Cough, Dyspnea on Exertion - Gastrointestinal Gastrointestinal: Dysphagia, Nausea - Genitourinary Genitourinary: As Per HPI - Musculoskeletal Musculoskeletal: Muscle Cramps, Muscle Weakness, Myalgias - Integumentary Integumentary: As Per HPI - Neurological Neurological: Weakness Past Patient History - Infectious Disease Hx of Infectious Diseases: None - Past Medical History & Family History Past Medical History?: Yes Past Family History: Reviewed and not pertinent - Past Social History Smoking Status: Current Some Days Smoker Chewing Tobacco Use: No Cigar Use: No Alcohol: Occasional Drugs: Denies Home Situation {Lives}: Alone - CARDIAC Hx Hypertension: Yes Hx Peripheral Edema: Yes - PULMONARY Hx Asthma: Yes Hx Bronchitis: Yes Hx Chronic Obstructive Pulmonary Disease (COPD): Yes - NEUROLOGICAL Hx Neurological Disorder: No - HEENT Hx HEENT Problems: No - RENAL Hx Chronic Kidney Disease: Yes - ENDOCRINE/METABOLIC Hx Diabetes Mellitus Type 2: Yes - HEMATOLOGICAL/ONCOLOGICAL Hx Anemia: Yes - INTEGUMENTARY Hx Dermatological Problems: Yes Hx Cellulitis: Yes (BILATERAL LEGS) - MUSCULOSKELETAL/RHEUMATOLOGICAL Hx Falls: No - GASTROINTESTINAL Hx Gastrointestinal Disorders: Yes Hx Gastroesophageal Reflux: Yes - GENITOURINARY/GYNECOLOGICAL Hx Genitourinary Disorders: No - PSYCHIATRIC Hx Substance Use: No - SURGICAL HISTORY Hx Surgeries: Yes (Left arm AV Fistula) Hx Vascular Surgery: Yes ([facility]) - ANESTHESIA Hx Anesthesia: Yes Hx Anesthesia Reactions: No Hx Malignant Hyperthermia: No Meds Allergies/Adverse Reactions: Allergies Allergy/AdvReac Type Severity Reaction Status Date / Time Penicillins Allergy Verified 10/26/17 16:12 tazobactam [From Zosyn] Allergy Verified 02/04/18 17:27 piperacillin AdvReac ITCHING, Verified 10/22/17 03:21 SHORTNESS OF BREATH PET DANDER Allergy Severe CONGESTION Uncoded 10/22/17 03:21 - Medications Medications: Current Medications Acetaminophen (Tylenol 325mg Tab) 650 mg PO Q6 PRN PRN Reason: Fever >100.4 F Last Admin: 06/02/18 01:04 Dose: 650 mg Calcium Acetate (Phoslo) 667 mg PO TID [facility] Last Admin: 06/01/18 18:17 Dose: Not Given Docusate Sodium (Colace) 100 mg PO BID [facility] Last Admin: 06/01/18 18:16 Dose: Not Given Epoetin [place]ura (Procrit) 10,000 unit IV TTS [facility] Furosemide (Lasix) 40 mg PO DAILY [facility] Aztreonam 1 gm/ Sodium (Chloride) 100 mls @ 100 mls/hr IVPB DAILY [facility] PRN Reason: Protocol Last Admin: 06/01/18 21:38 Dose: 100 mls/hr Clindamycin Phosphate 600 mg/ (Sodium Chloride) 54 mls @ 100 mls/hr IVPB Q8H [facility] PRN Reason: Protocol Last Admin: 06/02/18 06:10 Dose: 100 mls/hr Insulin Aspart (Novolog) 0 unit SC ACHS [facility]OS[facility]E PRN Reason: Protocol Last Admin: 06/02/18 08:14 Dose: Not Given Morphine Sulfate (Morphine) 6 mg IVP Q4H PRN PRN Reason: Pain, severe (8-10) Last Admin: 06/02/18 07:44 Dose: 6 mg Pantoprazole Sodium (Protonix Ec Tab) 40 mg PO DAILY [facility] Rosuvastatin Calcium (Crestor) 20 mg PO HS [facility] Sevelamer Carbonate (Renvela) 2.4 gm PO TIDCC [facility] Last Admin: 06/01/18 18:16 Dose: Not Given Tramadol HCl (Ultram) 50 mg PO Q8H PRN PRN Reason: Pain, moderate (4-7) Physical Exam - Constitutional Appears: No Acute Distress, Chronically Ill - Head Exam Head Exam: ATRAUMATIC, NORMAL INSPECTION - Eye Exam Eye Exam: EOMI, Normal appearance - Neck Exam Neck exam: Positive for: Normal Inspection. Negative for: Tenderness - Respiratory Exam Respiratory Exam: Rhonchi, Respiratory Distress - Cardiovascular Exam Cardiovascular Exam: REGULAR RHYTHM, +S1 - GI/Abdominal Exam GI & Abdominal Exam: Soft. absent: Tenderness - Extremities Exam Extremities exam: Positive for: pedal edema, tenderness - Neurological Exam Neurological exam: Alert, CN II-XII Intact - Skin Skin Exam: Rash, Warm Results - Vital Signs Recent Vital Signs: Last Vital Signs Temp 98.1 F 06/02/18 07:28 Pulse 88 06/02/18 07:28 Resp 20 06/02/18 07:28 BP 101/68 06/02/18 07:28 Pulse Ox 98 06/02/18 07:28 - Labs Result Diagrams: 06/01/18 11:06 06/01/18 11:06 Labs: Laboratory Results - last 24 hr 06/01/18 06/01/18 06/01/18 10:36 11:04 11:06 WBC 7.1 D RBC 3.78 L Hgb 9.7 L Hct 29.4 L MCV 77.9 L D MCH 25.5 L MCHC 32.8 L RDW 18.8 H Plt Count 305 MPV 8.2 Neut % (Auto) 79.3 H Lymph % (Auto) 13.0 L [place] % (Auto) 2.3 Eos % (Auto) 4.4 H Baso % (Auto) 1.0 Neut # (Auto) 5.6 Lymph # (Auto) 0.9 L [place] # (Auto) 0.2 Eos # (Auto) 0.3 Baso # (Auto) 0.1 PT INR APTT pO2 17 L VBG pH 7.35 VBG pCO2 52 VBG HCO3 24.5 VBG Total CO2 30.3 H VBG O2 Sat (Calc) 23.9 L VBG Base Excess 2.1 H VBG Potassium 7.3 H* Sodium 136.0 Chloride 101.0 Glucose 90 Lactate 3.7 H Crit Value Called To Crit Value Called By Sanya stapleton,resource program teacher Crit Value Read Back Y Blood Gas Notified Time 1120 Potassium Carbon Dioxide Anion Gap BUN Creatinine Est GFR ( Amer) Est GFR (Non-Af Amer) POC Glucose (mg/dL) 71 Random Glucose Lactic Acid Calcium Total Bilirubin AST ALT Alkaline Phosphatase Total Creatine Kinase CK-MB (Mass) Total Protein Albumin Globulin Albumin/Globulin Ratio Venous Blood Potassium 7.3 H* 06/01/18 06/01/18 06/01/18 11:06 11:06 13:53 WBC RBC Hgb Hct MCV MCH MCHC RDW Plt Count MPV Neut % (Auto) Lymph % (Auto) [place] % (Auto) Eos % (Auto) Baso % (Auto) Neut # (Auto) Lymph # (Auto) [place] # (Auto) Eos # (Auto) Baso # (Auto) PT 12.3 H INR 1.1 APTT 39 H pO2 VBG pH VBG pCO2 VBG HCO3 VBG Total CO2 VBG O2 Sat (Calc) VBG Base Excess VBG Potassium Sodium 139 Chloride 96 L Glucose Lactate Crit Value Called To Crit Value Called By Crit Value Read Back Blood Gas Notified Time Potassium 6.1 H Carbon Dioxide 28 Anion Gap 21 H BUN 51 H Creatinine 11.1 H* Est GFR ( Amer) 6 Est GFR (Non-Af Amer) 5 POC Glucose (mg/dL) Random Glucose 97 Lactic Acid 2.2 H Calcium 8.5 L Total Bilirubin 1.0 AST 42 ALT 18 L D Alkaline Phosphatase 56 Total Creatine Kinase 68 CK-MB (Mass) 0.36 Total Protein 9.0 H Albumin 4.2 Globulin 4.8 H Albumin/Globulin Ratio 0.9 L Venous Blood Potassium 06/02/18 08:00 WBC RBC Hgb Hct MCV MCH MCHC RDW Plt Count MPV Neut % (Auto) Lymph % (Auto) [place] % (Auto) Eos % (Auto) Baso % (Auto) Neut # (Auto) Lymph # (Auto) [place] # (Auto) Eos # (Auto) Baso # (Auto) PT INR APTT pO2 VBG pH VBG pCO2 VBG HCO3 VBG Total CO2 VBG O2 Sat (Calc) VBG Base Excess VBG Potassium Sodium Chloride Glucose Lactate Crit Value Called To Crit Value Called By Crit Value Read Back Blood Gas Notified Time Potassium Carbon Dioxide Anion Gap BUN Creatinine Est GFR ( Amer) Est GFR (Non-Af Amer) POC Glucose (mg/dL) 101 Random Glucose Lactic Acid Calcium Total Bilirubin AST ALT Alkaline Phosphatase Total Creatine Kinase CK-MB (Mass) Total Protein Albumin Globulin Albumin/Globulin Ratio Venous Blood Potassium Assessment & Plan (1) End stage renal disease Status: Acute (2) Hypertensive chronic kidney disease with stage 5 chronic kidney disease or end stage renal disease Status: Acute (3) Morbid obesity Status: Acute (4) Lymphedema of lower extremity Status: Chronic (5) AV graft thrombosis Status: Acute - Assessment and Plan (Free Text) Plan: kayexelate given needs thrombectomy MILAN then dialysis later IV ABs wound care LE- no open wound at present
[2018-06-02 11:21] LABS: BASO # 0.1 K/uL (0.0-0.2); BASO % 0.3 % (0.0-2.0); HEMOGLOBIN 8.5 g/dL (12.0-18.0); LYMPH # 0.5 K/uL (1.0-4.3); MEAN CELL VOLUME 77.2 fL (80.0-94.0); MEAN CORPUSCULAR HEMOGLOBIN 24.2 pg (27.0-31.0); MEAN CORPUSCULAR HGB CONC 31.3 g/dL (33.0-37.0); MEAN PLATELET VOLUME 8.3 fL (7.2-11.7); MONO % 4.1 % (0.0-10.0); NEUT # 23.8 K/uL (1.8-7.0); NEUT % 93.6 % (50.0-75.0); PLATELET COUNT 211 K/uL (130-400); RBC 3.52 Mil/uL (4.40-5.90); RED CELL DISTRIBUTION WIDTH 18.6 % (11.5-14.5); WHITE BLOOD COUNT 25.4 K/uL (4.8-10.8)
[2018-06-02] MEDS: Aztreonam 1 GM in Sodium Chloride 0.9% 100 ML IVPB SCH (11:50)
[2018-06-02 11:53] LABS: ALB/GLOB RATIO 0.9 (1.0-2.1); ALBUMIN 3.4 g/dL (3.5-5.0); CALCIUM 7.8 mg/dl (8.6-10.4)
[2018-06-02 11:56] LABS: ANISOCYTOSIS SLIGHT; BANDS 29 % (0-2); HYPOCHROMIC SLIGHT; LYMPHOCYTE 2 % (20-40); MONOCYTE 5 % (0-10); NEUTROPHIL 64 % (50-75); PLATELET ESTIMATE NORMAL (NORMAL); POLYCHROMIC SLIGHT; TOTAL CELLS COUNTED 100
[2018-06-02 11:57] LABS: OVALOCYTES SLIGHT
[2018-06-02] MEDS ORDERED: Sod Polystyrene Sulf 15 gm/60 ml Susp PO ONE (13:00)
[2018-06-02] MEDS ORDERED: Lidocaine Hydrochloride 10 ML INJ ONE ×2 (13:03→14:34)
[2018-06-02] MEDS ORDERED: HEPARIN-NS 5,000 UNITS/500 ML 5,000 UNIT/500 ML BAG IV ONE (13:03)
--- NOTE | 2018-06-02 13:04 | CP.PCM.CON ---
History of Present Illness - History of Present Illness History of Present Illness: dictated Past Patient History - Infectious Disease Hx of Infectious Diseases: None - Past Medical History & Family History Past Medical History?: Yes Past Family History: Reviewed and not pertinent - Past Social History Smoking Status: Current Some Days Smoker Chewing Tobacco Use: No Cigar Use: No Alcohol: Occasional Drugs: Denies Home Situation {Lives}: Alone - CARDIAC Hx Hypertension: Yes Hx Peripheral Edema: Yes - PULMONARY Hx Asthma: Yes Hx Bronchitis: Yes Hx Chronic Obstructive Pulmonary Disease (COPD): Yes - NEUROLOGICAL Hx Neurological Disorder: No - HEENT Hx HEENT Problems: No - RENAL Hx Chronic Kidney Disease: Yes - ENDOCRINE/METABOLIC Hx Diabetes Mellitus Type 2: Yes - HEMATOLOGICAL/ONCOLOGICAL Hx Anemia: Yes - INTEGUMENTARY Hx Dermatological Problems: Yes Hx Cellulitis: Yes (BILATERAL LEGS) - MUSCULOSKELETAL/RHEUMATOLOGICAL Hx Falls: No - GASTROINTESTINAL Hx Gastrointestinal Disorders: Yes Hx Gastroesophageal Reflux: Yes - GENITOURINARY/GYNECOLOGICAL Hx Genitourinary Disorders: No - PSYCHIATRIC Hx Substance Use: No - SURGICAL HISTORY Hx Surgeries: Yes (Left arm AV Fistula) Hx Vascular Surgery: Yes ([facility]) - ANESTHESIA Hx Anesthesia: Yes Hx Anesthesia Reactions: No Hx Malignant Hyperthermia: No Meds Allergies/Adverse Reactions: Allergies Allergy/AdvReac Type Severity Reaction Status Date / Time Penicillins Allergy Verified 10/26/17 16:12 tazobactam [From Zosyn] Allergy Verified 02/04/18 17:27 piperacillin AdvReac ITCHING, Verified 10/22/17 03:21 SHORTNESS OF BREATH PET DANDER Allergy Severe CONGESTION Uncoded 10/22/17 03:21 - Medications Medications: Current Medications Acetaminophen (Tylenol 325mg Tab) 650 mg PO Q6 PRN PRN Reason: Fever >100.4 F Last Admin: 06/02/18 01:04 Dose: 650 mg Calcium Acetate (Phoslo) 667 mg PO TID [facility] Last Admin: 06/02/18 10:00 Dose: Not Given Docusate Sodium (Colace) 100 mg PO BID [facility] Last Admin: 06/02/18 10:00 Dose: Not Given Epoetin Ventura (Procrit) 10,000 unit IV TTS [facility] Last Admin: 06/02/18 10:00 Dose: Not Given Furosemide (Lasix) 40 mg PO DAILY [facility] Last Admin: 06/02/18 11:00 Dose: Not Given Aztreonam 1 gm/ Sodium (Chloride) 100 mls @ 100 mls/hr IVPB DAILY [facility] PRN Reason: Protocol Last Admin: 06/02/18 11:50 Dose: 100 mls/hr Clindamycin Phosphate 600 mg/ (Sodium Chloride) 54 mls @ 100 mls/hr IVPB Q8H [facility]OS[facility]E PRN Reason: Protocol Last Admin: 06/02/18 06:10 Dose: 100 mls/hr Meropenem 500 mg/ Sodium (Chloride) 100 mls @ 100 mls/hr IVPB Q12 [facility]E PRN Reason: Protocol Insulin Aspart (Novolog) 0 unit SC ACHS [facility]OS[facility]E PRN Reason: Protocol Last Admin: 06/02/18 12:01 Dose: Not Given Methylprednisolone (Solu-Medrol) 125 mg IVP ONCE PRN PRN Reason: Allergy symptoms Morphine Sulfate (Morphine) 6 mg IVP Q4H PRN PRN Reason: Pain, severe (8-10) Last Admin: 06/02/18 07:44 Dose: 6 mg Pantoprazole Sodium (Protonix Ec Tab) 40 mg PO DAILY [facility] Last Admin: 06/02/18 10:00 Dose: Not Given Rosuvastatin Calcium (Crestor) 10 mg PO HS [facility] Sevelamer Carbonate (Renvela) 2.4 gm PO TIDCC [facility] Last Admin: 06/02/18 12:02 Dose: Not Given Sodium Polystyrene Sulfonate (Kayexalate Susp) 15 gm PO ONCE ONE Stop: 06/02/18 13:01 Tramadol HCl (Ultram) 50 mg PO Q8H PRN PRN Reason: Pain, moderate (4-7) Results - Vital Signs Recent Vital Signs: Last Vital Signs Temp 98.1 F 06/02/18 07:28 Pulse 91 H 06/02/18 11:00 Resp 20 06/02/18 07:28 BP 94/60 L 06/02/18 11:00 Pulse Ox 98 06/02/18 07:28 - Labs Result Diagrams: 06/02/18 11:13 06/02/18 11:13 Labs: Laboratory Results - last 24 hr 06/01/18 06/02/18 06/02/18 13:53 08:00 11:13 WBC 25.4 H D RBC 3.52 L Hgb 8.5 L Hct 27.2 L MCV 77.2 L MCH 24.2 L MCHC 31.3 L RDW 18.6 H Plt Count 211 MPV 8.3 Neut % (Auto) 93.6 H Lymph % (Auto) 2.0 L [place] % (Auto) 4.1 Eos % (Auto) 0.0 Baso % (Auto) 0.3 Neut # (Auto) 23.8 H Lymph # (Auto) 0.5 L [place] # (Auto) 1.0 H Eos # (Auto) 0.0 Baso # (Auto) 0.1 Neutrophils % (Manual) 64 Band Neutrophils % 29 H* Lymphocytes % (Manual) 2 L Monocytes % (Manual) 5 Platelet Estimate Normal Polychromasia Slight Hypochromasia (manual) Slight Anisocytosis (manual) Slight Ovalocytes Slight Sodium Potassium Chloride Carbon Dioxide Anion Gap BUN Creatinine Est GFR ( Amer) Est GFR (Non-Af Amer) POC Glucose (mg/dL) 101 Random Glucose Lactic Acid 2.2 H Calcium Total Bilirubin AST ALT Alkaline Phosphatase Total Protein Albumin Globulin Albumin/Globulin Ratio 06/02/18 11:13 WBC RBC Hgb Hct MCV MCH MCHC RDW Plt Count MPV Neut % (Auto) Lymph % (Auto) [place] % (Auto) Eos % (Auto) Baso % (Auto) Neut # (Auto) Lymph # (Auto) [place] # (Auto) Eos # (Auto) Baso # (Auto) Neutrophils % (Manual) Band Neutrophils % Lymphocytes % (Manual) Monocytes % (Manual) Platelet Estimate Polychromasia Hypochromasia (manual) Anisocytosis (manual) Ovalocytes Sodium 137 Potassium 6.1 H Chloride 96 L Carbon Dioxide 29 Anion Gap 19 BUN 62 H Creatinine 12.4 H* Est GFR ( Amer) 5 Est GFR (Non-Af Amer) 4 POC Glucose (mg/dL) Random Glucose 88 Lactic Acid Calcium 7.8 L Total Bilirubin 0.7 AST 27 ALT 18 L Alkaline Phosphatase 62 Total Protein 7.2 Albumin 3.4 L Globulin 3.8 Albumin/Globulin Ratio 0.9 L
--- NOTE | 2018-06-02 15:11 | PCM.SURG1 ---
Surgeon's Initial Post Op Note - Surgeon's Notes Surgeon: Dr. Yoel Chiu Certified Executive Chef: Jayson Mac PGY1 Type of Anesthesia: Local Pre-Operative Diagnosis: ESRD Operative Findings: Unable to locate Right Internal Jugular vein. Proceeded with right Subclavian vein approach. Post-Operative Diagnosis: ESRD Operation Performed: Right subclavian permacatheter placement using the micropuncture technique Specimen/Specimens Removed: none Estimated Blood Loss: EBL {In ML}: 30 Blood Products Given: N/A Drains Used: No Drains Post-Op Condition: Good Date of Surgery/Procedure: 06/02/18 Time of Surgery/Procedure: 15:12
--- NOTE | 2018-06-02 15:41 | RAD ---
HISTORY: permacatheter placement COMPARISON: Chest radiograph dated 06/01/2018. FINDINGS: LUNGS: Pulmonary vascular congestion. PLEURA: No significant pleural effusion identified, no pneumothorax apparent. CARDIOVASCULAR: Cardiomediastinal silhouette stably enlarged. OSSEOUS STRUCTURES: Unchanged. VISUALIZED UPPER ABDOMEN: Normal. OTHER FINDINGS: Right subclavian access hemodialysis catheter with tips in the upper right atrium. Left upper extremity overlapping vascular stents redemonstrated. IMPRESSION: New right subclavian access hemodialysis catheter in satisfactory position. No appreciable pneumothorax.
--- NOTE | 2018-06-02 16:43 | CP.PCM.PN ---
Subjective - Date & Time of Evaluation Date of Evaluation: 06/02/18 Time of Evaluation: 09:20 - Subjective Subjective: clinically same Objective - Vital Signs/Intake and Output Vital Signs (last 24 hours): Temp Pulse Resp BP Pulse Ox 98.1 F 88 20 100/63 95 06/02/18 15:41 06/02/18 15:41 06/02/18 15:41 06/02/18 15:41 06/02/18 15:41 Intake and Output: 06/02/18 06/02/18 06:59 18:59 Intake Total 264 Output Total 400 Balance -400 264 - Medications Medications: Current Medications Acetaminophen (Tylenol 325mg Tab) 650 mg PO Q6 PRN PRN Reason: Fever >100.4 F Last Admin: 06/02/18 01:04 Dose: 650 mg Calcium Acetate (Phoslo) 667 mg PO TID [facility] Last Admin: 06/02/18 13:09 Dose: Not Given Docusate Sodium (Colace) 100 mg PO BID [facility] Last Admin: 06/02/18 10:00 Dose: Not Given Epoetin [place] (Procrit) 10,000 unit IV TTS [facility] Last Admin: 06/02/18 10:00 Dose: Not Given Furosemide (Lasix) 40 mg PO DAILY [facility] Last Admin: 06/02/18 11:00 Dose: Not Given Aztreonam 1 gm/ Sodium (Chloride) 100 mls @ 100 mls/hr IVPB DAILY [facility]E PRN Reason: Protocol Last Admin: 06/02/18 11:50 Dose: 100 mls/hr Clindamycin Phosphate 600 mg/ (Sodium Chloride) 54 mls @ 100 mls/hr IVPB Q8H JOS[facility]E PRN Reason: Protocol Last Admin: 06/02/18 14:29 Dose: 54 mls Meropenem 500 mg/ Sodium (Chloride) 100 mls @ 100 mls/hr IVPB Q12 JOSSIE PRN Reason: Protocol Vancomycin/Sodium Chloride (Vancomycin 1 Gm/Ns 200 Ml) 1 gm in 200 mls @ 133.333 mls/hr IVPB Q24H JOSSIE PRN Reason: Protocol Stop: 06/07/18 17:01 Insulin Aspart (Novolog) 0 unit SC ACHS JOS[facility]E PRN Reason: Protocol Last Admin: 06/02/18 12:01 Dose: Not Given Methylprednisolone (Solu-Medrol) 125 mg IVP ONCE PRN PRN Reason: Allergy symptoms Morphine Sulfate (Morphine) 6 mg IVP Q4H PRN PRN Reason: Pain, severe (8-10) Last Admin: 06/02/18 15:56 Dose: 6 mg Morphine Sulfate (Morphine) 1 mg IVP Q10M PRN PRN Reason: Pain, moderate (4-7) Stop: 06/02/18 16:57 Ondansetron HCl (Zofran Inj) 4 mg IVP ONCE PRN PRN Reason: Nausea/Vomiting Stop: 06/02/18 16:57 Pantoprazole Sodium (Protonix Ec Tab) 40 mg PO DAILY [facility] Last Admin: 06/02/18 10:00 Dose: Not Given Rosuvastatin Calcium (Crestor) 10 mg PO HS [facility] Sevelamer Carbonate (Renvela) 2.4 gm PO TIDCC [facility] Last Admin: 06/02/18 12:02 Dose: Not Given Tramadol HCl (Ultram) 50 mg PO Q8H PRN PRN Reason: Pain, moderate (4-7) - Labs Labs: 06/02/18 11:13 06/02/18 11:13 PT 12.3 SECONDS (9.7-12.2) H 06/01/18 11:06 INR 1.1 06/01/18 11:06 APTT 39 SECONDS (21-34) H 06/01/18 11:06 - Constitutional Appears: Well - Head Exam Head Exam: ATRAUMATIC, NORMAL INSPECTION, NORMOCEPHALIC - Eye Exam Eye Exam: EOMI, Normal appearance, PERRL Pupil Exam: NORMAL ACCOMODATION, PERRL - ENT Exam ENT Exam: Mucous Membranes Moist, Normal Exam - Neck Exam Neck Exam: Full ROM, Normal Inspection. absent: Lymphadenopathy - Respiratory Exam Respiratory Exam: Decreased Breath Sounds - Cardiovascular Exam Cardiovascular Exam: REGULAR RHYTHM, +S1, +S2 - GI/Abdominal Exam GI & Abdominal Exam: Soft, Diminished Bowel Sounds - Rectal Exam Rectal Exam: Deferred
--- NOTE | 2018-06-02 16:51 | RAD ---
PROCEDURE: Intraoperative Fluoroscopy. HISTORY: INSERTION OF DIALYSIS CATH FINDINGS: Fluoroscopic assistance was provided for right-sided dialysis catheter insertion. Please refer to the operative report from BOYD Begum.
[2018-06-02] MEDS ORDERED: Vancomycin 1 gm/NS 200 ml 1 GM/200 ML BAG IVPB SCH (17:00)
--- NOTE | 2018-06-02 19:21 | PQF ---
PROVIDER RESPONSE TEXT: Septicemia in the setting of Right Leg Cellulitis and AV Graft Thrombosis with Positive Blood CS for Gm Negative Rods, treated with Aztreonam IV, Meropenem IV, Vancomycin IV REVIEWER QUERY TEXT: Clarification of Clinical Diagnostic Findings Please clarify documentation or clinical relevance for the clinical / diagnostic findings or whether those are insignificant or unable to be further specified. Septicemia in the setting of Right Leg Cellulitis and AV Graft Thrombosis with Positive Blood CS f or Gm Negative Rods, treated with Aztreonam IV, Meropenem IV, Vancomycin IV -- Other Explanation. -- Unable t determine The patient's Clinical Indicators include: Clinical Findings: Fever T= 100.7, CA= 100- 115 , BP= 106/87 , Wbc= 25.4, Neuts= 79.3, Bands= 29, Blood CS : Positive Gram Negative Rods x 2 . Treatment: Aztreonam IV, Meropenem IV, Vancomycin IV Risk Factor: Right leg Cellulitis . Query created by: Lexy Charles on 06/02/2018 4:28 PM Electronically signed by: Aminta JONES 06/02/2018 7:18 PM
[2018-06-02] MEDS: Meropenem 500 MG in Sodium Chloride 0.9% 100 ML IVPB SCH (22:38)
--- NOTE | 2018-06-03 02:53 | OP ---
PROCEDURE DATE: 06/02/2018 PREOPERATIVE DIAGNOSES: Renal failure, carotid shunt. PROCEDURE CARRIED OUT: Placement of right subclavian PermCath. SURGEON: Yoel Chiu Jr., MD ASSISTANTS: None. ANESTHESIOLOGIST: Ms. Bravo CRNA INDICATIONS: A middle-aged man with renal failure who refused emergency placement last night, now comes, potassium is 6.1. Refuses to have dialysis access treated here. OPERATIVE FINDINGS: Quite difficult to access the jugular veins as they are both occluded on both sides. I tried a supraclavicular approach which was unsuccessful. I then went subclavian, and we were able to pass the micropuncture kit. I accessed into the right subclavian vein, passed the catheter under fluoroscopy, and eventually positioned the catheter in the appropriate location with good return. It was tunneled on the right chest wall. It originated on the right chest wall, went through the right subclavian vein, and terminated in the superior vena cava. This was a tunneled catheter, secured to the skin with sutures, flushed with heparinized saline. Ultrasound was not used as we did not image the vessels. Yoel Chiu Jr., MD
--- NOTE | 2018-06-03 03:05 | CON ---
DATE: 06/02/2018 HISTORY OF PRESENT ILLNESS: Mr. Oliva is known to me from his previous admissions. He says he called 911 because he was having so much pain in the right leg and was having chills while he waked up. He said his last dialysis was actually Wednesday. He missed his dialysis yesterday, and he was supposed to have it actually on 05/31/2018. He was supposed to have it and then he missed it. On 06/01/2018, he was supposed to get it at 1:00 p.m., but then he started to have fever and chills. He has had chronic lymphedema, end-stage renal disease. He has had many cellulitis. He says he may have rubbed himself with a rough washcloth and started to have cut right in his right groin and that made him to have fevers and chills, he thinks and he is here now. He was hypotensive last night, and we had to give too many antibiotics to cover for infection as he was hypotensive. His director report is Dr. Mota and former PMD was Dr. Alegre. He comes in with lower extremity pain and cellulitis and chills. In the ER, he had only temperature 98, pulse 108, respirations were 18, blood pressure 107/67, but he has been dyspneic. PAST MEDICAL HISTORY: Significant for anemia, asthma, bronchitis, COPD, diabetes, hypertension, peripheral edema, end-stage renal disease, chronic kidney disease, and chronic pain. He has this AV fistula since 05/07/2014, but now the fistula was clotted, and he is going to go for an urgent catheter placement. His blood cultures came out positive at this time for gram-negative bacilli, but they are not finalized, generally he has had gram-positive. ALLERGIES: HE IS ALLERGIC TO PENICILLIN, WHICH CAUSES RASH AND . FAMILY HISTORY: Noncontributory. SOCIAL HISTORY: He says he started to smoke again. He drinks alcohol socially. Denies any substance abuse. He came in with chills. Denied any chest pain. No palpitations. Denied shortness of breath. Denied nausea, vomiting, diarrhea, or abdominal pain. 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 Morbid obesity. He is 400 pounds and he is only 5 feet 11 inches with BMI of 55.8 and has multiple folds in his legs and thighs. MEDICATIONS: We gave him yesterday vancomycin. He got amikacin and he got Azactam. Today, I have added meropenem, but we are going give the first dose after he comes back from the catheter placement. His medications include Azactam. He is also on clindamycin and meropenem at this time and vancomycin to be given after dialysis. which was added today for first dose. Again, we will adjust it to the days of dialysis once we come to know his dialysis days. REVIEW OF SYSTEMS: He was complaining of pain in the right groin area, right thigh, and right leg. He also opened up to say that he has started smoking as he was short of breath and having some dyspnea. PHYSICAL EXAMINATION: VITAL SIGNS: T-max is 98.1, pulse 88, blood pressure 100/63, respirations are 20. GENERAL: He is awake, alert. HEENT: Head is atraumatic. Pupils are reacting to light. Tongue is moist. NECK: Supple. JVP is flat. LUNGS: Decreased breath sounds bilaterally. HEART: S1, S2 are regular. He has a left arm shunt which is clotted. Left arm fistula which has no bruit. ABDOMEN: Flabby, nontender. No guarding, no rigidity present. EXTREMITIES: Have bilateral multiple folds. Right leg is warm to touch, and right thigh is warm to ouch along with erythema at the knee. I could not evaluate the cut he was talking about as he has multiple folds of skin in thigh and groin also. NEUROLOGIC: But he is alert, awake and oriented x3. LABORATORY DATA: Labs are noted. Labs showed white count yesterday was 7.1, today it is 25.4; hemoglobin is 8.5; hematocrit 27.2; platelets are 12; bands are 29; lymphocytes are 2. He has 29 bands, so he is very acutely ill. Sodium 137, potassium 6.1, creatinine of 12.4. ASSESSMENT AND PLAN: They are looking to dialyze him as soon as possible. Venous blood yesterday was 7.3. He did get Kayexalate. His chest x-ray shows new right subclavian access hemodialysis catheter in satisfactory position. No appreciable pneumothorax. So at the time I am dictating this, he already got the access now which is around 3:15. An x-ray does not show any infiltrates on 06/01/2018, just showed prominence of the pulmonary vascular congestion. Micro bhatti, blood cultures are positive for gram-negative rods. He will be on meropenem and Azactam. By tomorrow if the culture is finalized, I may get rid of clindamycin once I know because in the past he has had gram-positive infection and he does have a clotted fistula at this time. So, he came in with septic shock with gram-negative septicemia, may be related to cellulitis and to the clotted fistula. He does have lymphangitis with cellulitis, abscess, and end-stage renal disease. Alec Boucher MD
[2018-06-03] MEDS: (Novolog) Insulin Aspart, Recombinant 100 u/ml 10 ml vial SC SCH ×4 (08:03→23:34)
[2018-06-03] MEDS: Sevelamer Carb 2.4 gm/Packet PO SCH ×3 (08:14→17:39)
[2018-06-03 08:19] LABS: MEAN CELL VOLUME 77.4 fL (80.0-94.0); MEAN CORPUSCULAR HEMOGLOBIN 24.4 pg (27.0-31.0); MEAN CORPUSCULAR HGB CONC 31.5 g/dL (33.0-37.0); MEAN PLATELET VOLUME 8.7 fL (7.2-11.7); RBC 3.27 Mil/uL (4.40-5.90); RED CELL DISTRIBUTION WIDTH 18.2 % (11.5-14.5); WHITE BLOOD COUNT 24.4 K/uL (4.8-10.8)
[2018-06-03 08:46] LABS: ALB/GLOB RATIO 0.9 (1.0-2.1); ALBUMIN 3.3 g/dL (3.5-5.0)
[2018-06-03] MEDS: Pantoprazole 40 mg EC Tab PO SCH (09:16)
[2018-06-03] MEDS: Aztreonam 1 GM in Sodium Chloride 0.9% 100 ML IVPB SCH (10:02)
--- NOTE | 2018-06-03 11:10 | CP.PCM.PN ---
Subjective - Date & Time of Evaluation Date of Evaluation: 06/03/18 Time of Evaluation: 11:07 - Subjective Subjective: Vascular Surgery Progress Note for Dr. Chiu This 52M was seen and evaluated this AM at bedside no acute events overnight. He has no hematoma or pain at the prmacath insertion. Dressing clean dry and intact. Objective - Vital Signs/Intake and Output Vital Signs (last 24 hours): Temp Pulse Resp BP Pulse Ox 99.2 F 92 H 20 99/62 L 96 06/03/18 08:16 06/03/18 08:16 06/03/18 08:16 06/03/18 09:16 06/03/18 08:16 - Medications Medications: Current Medications Acetaminophen (Tylenol 325mg Tab) 650 mg PO Q6 PRN PRN Reason: Fever >100.4 F Last Admin: 06/03/18 00:20 Dose: 650 mg Calcium Acetate (Phoslo) 667 mg PO TID [facility] Last Admin: 06/03/18 09:15 Dose: 667 mg Docusate Sodium (Colace) 100 mg PO BID [facility] Last Admin: 06/03/18 09:15 Dose: Not Given Epoetin Ventura (Procrit) 10,000 unit IV TTS [facility] Last Admin: 06/02/18 18:37 Dose: 10,000 unit Furosemide (Lasix) 40 mg PO DAILY [facility] Last Admin: 06/03/18 09:16 Dose: 40 mg Aztreonam 1 gm/ Sodium (Chloride) 100 mls @ 100 mls/hr IVPB DAILY JOSSIE PRN Reason: Protocol Last Admin: 06/03/18 10:02 Dose: 100 mls/hr Clindamycin Phosphate 600 mg/ (Sodium Chloride) 54 mls @ 100 mls/hr IVPB Q8H JOSSIE PRN Reason: Protocol Last Admin: 06/03/18 06:04 Dose: 100 mls/hr Meropenem 500 mg/ Sodium (Chloride) 100 mls @ 100 mls/hr IVPB Q12 JOSSIE PRN Reason: Protocol Last Admin: 06/02/18 22:38 Dose: 100 mls/hr Vancomycin/Sodium Chloride (Vancomycin 1 Gm/Ns 200 Ml) 1 gm in 200 mls @ 133.333 mls/hr IVPB Q24H JOSSIE PRN Reason: Protocol Stop: 06/07/18 17:01 Last Admin: 06/02/18 20:11 Dose: 133.333 mls/hr Insulin Aspart (Novolog) 0 unit SC ACHS JOSSIE PRN Reason: Protocol Last Admin: 06/03/18 08:03 Dose: Not Given Methylprednisolone (Solu-Medrol) 125 mg IVP ONCE PRN PRN Reason: Allergy symptoms Morphine Sulfate (Morphine) 6 mg IVP Q4H PRN PRN Reason: Pain, severe (8-10) Last Admin: 06/03/18 08:12 Dose: 6 mg Pantoprazole Sodium (Protonix Ec Tab) 40 mg PO DAILY [facility] Last Admin: 06/03/18 09:16 Dose: 40 mg Rosuvastatin Calcium (Crestor) 10 mg PO HS [facility] Last Admin: 06/02/18 21:22 Dose: 10 mg Sevelamer Carbonate (Renvela) 2.4 gm PO TIDCC [facility] Last Admin: 06/03/18 08:14 Dose: 2.4 gm Tramadol HCl (Ultram) 50 mg PO Q8H PRN PRN Reason: Pain, moderate (4-7) - Labs Labs: 06/03/18 08:07 06/03/18 08:07 PT 12.3 SECONDS (9.7-12.2) H 06/01/18 11:06 INR 1.1 06/01/18 11:06 APTT 39 SECONDS (21-34) H 06/01/18 11:06 - Constitutional Appears: Non-toxic, No Acute Distress - Head Exam Head Exam: ATRAUMATIC, NORMOCEPHALIC - Eye Exam Eye Exam: EOMI, Normal appearance - ENT Exam ENT Exam: Mucous Membranes Moist - Respiratory Exam Respiratory Exam: NORMAL BREATHING PATTERN - GI/Abdominal Exam GI & Abdominal Exam: Soft. absent: Tenderness - Neurological Exam Neurological Exam: Alert, Awake - Psychiatric Exam Psychiatric exam: Normal Affect, Normal Mood Assessment and Plan - Assessment and Plan (Free Text) Assessment: 52M with clotted AVF POD#1 s/p permacat insertion OK to dialyze No further surgical intervention at this time. Please reconsult as needed D/W Dr. Apple Johnson PGY3
[2018-06-03] MEDS: Meropenem 500 MG in Sodium Chloride 0.9% 100 ML IVPB SCH ×2 (11:18→21:24)
--- NOTE | 2018-06-03 14:26 | CP.PCM.PN ---
Subjective - Date & Time of Evaluation Date of Evaluation: 06/03/18 Time of Evaluation: 14:24 - Subjective Subjective: s/p permcath placement s/p dialysis 7/6 afterwards Hg dropped to 8.0 same severe lymphedema afebrile now, no new n, v, diarrhea,chills Objective - Vital Signs/Intake and Output Vital Signs (last 24 hours): Temp Pulse Resp BP Pulse Ox 99.2 F 92 H 20 99/62 L 96 06/03/18 08:16 06/03/18 10:00 06/03/18 08:16 06/03/18 09:16 06/03/18 08:16 - Medications Medications: Current Medications Acetaminophen (Tylenol 325mg Tab) 650 mg PO Q6 PRN PRN Reason: Fever >100.4 F Last Admin: 06/03/18 00:20 Dose: 650 mg Calcium Acetate (Phoslo) 667 mg PO TID [facility] Last Admin: 06/03/18 13:20 Dose: 667 mg Docusate Sodium (Colace) 100 mg PO BID [facility] Last Admin: 06/03/18 09:15 Dose: Not Given Epoetin Ventura (Procrit) 10,000 unit IV TTS [facility] Last Admin: 06/02/18 18:37 Dose: 10,000 unit Furosemide (Lasix) 40 mg PO DAILY [facility] Last Admin: 06/03/18 09:16 Dose: 40 mg Aztreonam 1 gm/ Sodium (Chloride) 100 mls @ 100 mls/hr IVPB DAILY JOSSIE PRN Reason: Protocol Last Admin: 06/03/18 10:02 Dose: 100 mls/hr Clindamycin Phosphate 600 mg/ (Sodium Chloride) 54 mls @ 100 mls/hr IVPB Q8H JOSSIE PRN Reason: Protocol Last Admin: 06/03/18 14:08 Dose: 100 mls/hr Meropenem 500 mg/ Sodium (Chloride) 100 mls @ 100 mls/hr IVPB Q12 JOSSIE PRN Reason: Protocol Last Admin: 06/03/18 11:18 Dose: 100 mls/hr Vancomycin/Sodium Chloride (Vancomycin 1 Gm/Ns 200 Ml) 1 gm in 200 mls @ 133.333 mls/hr IVPB TTS JOSSIE PRN Reason: Protocol Stop: 06/09/18 10:01 Insulin Aspart (Novolog) 0 unit SC ACHS JOSSIE PRN Reason: Protocol Last Admin: 06/03/18 14:13 Dose: Not Given Methylprednisolone (Solu-Medrol) 125 mg IVP ONCE PRN PRN Reason: Allergy symptoms Morphine Sulfate (Morphine) 6 mg IVP Q4H PRN PRN Reason: Pain, severe (8-10) Last Admin: 06/03/18 08:12 Dose: 6 mg Pantoprazole Sodium (Protonix Ec Tab) 40 mg PO DAILY [facility] Last Admin: 06/03/18 09:16 Dose: 40 mg Rosuvastatin Calcium (Crestor) 10 mg PO HS [facility] Last Admin: 06/02/18 21:22 Dose: 10 mg Sevelamer Carbonate (Renvela) 2.4 gm PO TIDCC [facility] Last Admin: 06/03/18 13:20 Dose: 2.4 gm Tramadol HCl (Ultram) 50 mg PO Q8H PRN PRN Reason: Pain, moderate (4-7) - Labs Labs: 06/03/18 08:07 06/03/18 08:07 PT 12.3 SECONDS (9.7-12.2) H 06/01/18 11:06 INR 1.1 06/01/18 11:06 APTT 39 SECONDS (21-34) H 06/01/18 11:06 - Constitutional Appears: No Acute Distress, Chronically Ill - Head Exam Head Exam: ATRAUMATIC, NORMAL INSPECTION - Eye Exam Eye Exam: EOMI, Normal appearance - Neck Exam Neck Exam: Normal Inspection. absent: Tenderness - Respiratory Exam Respiratory Exam: Clear to Ausculation Bilateral, NORMAL BREATHING PATTERN - Cardiovascular Exam Cardiovascular Exam: REGULAR RHYTHM, +S1 - GI/Abdominal Exam GI & Abdominal Exam: Soft. absent: Tenderness - Extremities Exam Extremities Exam: Pedal Edema, Tenderness - Neurological Exam Neurological Exam: Alert, CN II-XII Intact - Skin Skin Exam: Dry, Warm Assessment and Plan (1) End stage renal disease Status: Acute (2) Hypertensive chronic kidney disease with stage 5 chronic kidney disease or end stage renal disease Status: Acute (3) Morbid obesity Status: Acute (4) Lymphedema of lower extremity Status: Chronic (5) AV graft thrombosis Status: Acute - Assessment and Plan (Free Text) Plan: dialysis TTS IV ABs recheck Hg check iron stores continue EPO
--- NOTE | 2018-06-03 15:43 | CP.PCM.PN ---
Subjective - Date & Time of Evaluation Date of Evaluation: 06/03/18 Time of Evaluation: 02:40 - Subjective Subjective: dictated Objective - Vital Signs/Intake and Output Vital Signs (last 24 hours): Temp Pulse Resp BP Pulse Ox 99.2 F 92 H 20 99/62 L 96 06/03/18 08:16 06/03/18 10:00 06/03/18 08:16 06/03/18 09:16 06/03/18 08:16 Intake and Output: 06/03/18 06/03/18 06:59 18:59 Intake Total 730 Balance 730 - Medications Medications: Current Medications Acetaminophen (Tylenol 325mg Tab) 650 mg PO Q6 PRN PRN Reason: Fever >100.4 F Last Admin: 06/03/18 00:20 Dose: 650 mg Calcium Acetate (Phoslo) 667 mg PO TID [facility] Last Admin: 06/03/18 13:20 Dose: 667 mg Docusate Sodium (Colace) 100 mg PO BID [facility] Last Admin: 06/03/18 09:15 Dose: Not Given Epoetin Ventura (Procrit) 10,000 unit IV TTS [facility] Last Admin: 06/02/18 18:37 Dose: 10,000 unit Furosemide (Lasix) 40 mg PO DAILY [facility] Last Admin: 06/03/18 09:16 Dose: 40 mg Aztreonam 1 gm/ Sodium (Chloride) 100 mls @ 100 mls/hr IVPB DAILY JOSSIE PRN Reason: Protocol Last Admin: 06/03/18 10:02 Dose: 100 mls/hr Clindamycin Phosphate 600 mg/ (Sodium Chloride) 54 mls @ 100 mls/hr IVPB Q8H JOSSIE PRN Reason: Protocol Last Admin: 06/03/18 14:08 Dose: 100 mls/hr Meropenem 500 mg/ Sodium (Chloride) 100 mls @ 100 mls/hr IVPB Q12 JOSSIE PRN Reason: Protocol Last Admin: 06/03/18 11:18 Dose: 100 mls/hr Vancomycin/Sodium Chloride (Vancomycin 1 Gm/Ns 200 Ml) 1 gm in 200 mls @ 133.333 mls/hr IVPB TTS JOSSIE PRN Reason: Protocol Stop: 06/09/18 10:01 Insulin Aspart (Novolog) 0 unit SC ACHS JOSSIE PRN Reason: Protocol Last Admin: 06/03/18 14:13 Dose: Not Given Methylprednisolone (Solu-Medrol) 125 mg IVP ONCE PRN PRN Reason: Allergy symptoms Morphine Sulfate (Morphine) 6 mg IVP Q4H PRN PRN Reason: Pain, severe (8-10) Last Admin: 06/03/18 08:12 Dose: 6 mg Pantoprazole Sodium (Protonix Ec Tab) 40 mg PO DAILY [facility] Last Admin: 06/03/18 09:16 Dose: 40 mg Rosuvastatin Calcium (Crestor) 10 mg PO HS [facility] Last Admin: 06/02/18 21:22 Dose: 10 mg Sevelamer Carbonate (Renvela) 2.4 gm PO TIDCC [facility] Last Admin: 06/03/18 13:20 Dose: 2.4 gm Tramadol HCl (Ultram) 50 mg PO Q8H PRN PRN Reason: Pain, moderate (4-7) - Labs Labs: 06/03/18 08:07 06/03/18 08:07 PT 12.3 SECONDS (9.7-12.2) H 06/01/18 11:06 INR 1.1 06/01/18 11:06 APTT 39 SECONDS (21-34) H 06/01/18 11:06
--- NOTE | 2018-06-03 19:19 | CP.PCM.PN ---
Subjective - Date & Time of Evaluation Date of Evaluation: 06/03/18 Time of Evaluation: 09:00 - Subjective Subjective: clinically same Objective - Vital Signs/Intake and Output Vital Signs (last 24 hours): Temp Pulse Resp BP Pulse Ox 98.5 F 89 20 123/74 95 06/03/18 16:01 06/03/18 16:55 06/03/18 16:01 06/03/18 16:01 06/03/18 16:01 Intake and Output: 06/03/18 06/04/18 18:59 06:59 Intake Total 730 Balance 730 - Medications Medications: Current Medications Acetaminophen (Tylenol 325mg Tab) 650 mg PO Q6 PRN PRN Reason: Fever >100.4 F Last Admin: 06/03/18 00:20 Dose: 650 mg Calcium Acetate (Phoslo) 667 mg PO TID [facility] Last Admin: 06/03/18 17:39 Dose: 667 mg Docusate Sodium (Colace) 100 mg PO BID [facility] Last Admin: 06/03/18 17:39 Dose: Not Given Epoetin Ventura (Procrit) 10,000 unit IV TTS [facility] Last Admin: 06/02/18 18:37 Dose: 10,000 unit Furosemide (Lasix) 40 mg PO DAILY [facility] Last Admin: 06/03/18 09:16 Dose: 40 mg Aztreonam 1 gm/ Sodium (Chloride) 100 mls @ 100 mls/hr IVPB DAILY JOSSIE PRN Reason: Protocol Last Admin: 06/03/18 10:02 Dose: 100 mls/hr Clindamycin Phosphate 600 mg/ (Sodium Chloride) 54 mls @ 100 mls/hr IVPB Q8H JOSSIE PRN Reason: Protocol Last Admin: 06/03/18 14:08 Dose: 100 mls/hr Meropenem 500 mg/ Sodium (Chloride) 100 mls @ 100 mls/hr IVPB Q12 JOSSIE PRN Reason: Protocol Last Admin: 06/03/18 11:18 Dose: 100 mls/hr Vancomycin/Sodium Chloride (Vancomycin 1 Gm/Ns 200 Ml) 1 gm in 200 mls @ 133.333 mls/hr IVPB TTS JOSSIE PRN Reason: Protocol Stop: 06/09/18 10:01 Insulin Aspart (Novolog) 0 unit SC ACHS JOSSIE PRN Reason: Protocol Last Admin: 06/03/18 16:38 Dose: Not Given Methylprednisolone (Solu-Medrol) 125 mg IVP ONCE PRN PRN Reason: Allergy symptoms Morphine Sulfate (Morphine) 6 mg IVP Q4H PRN PRN Reason: Pain, severe (8-10) Last Admin: 06/03/18 17:37 Dose: 6 mg Pantoprazole Sodium (Protonix Ec Tab) 40 mg PO DAILY [facility] Last Admin: 06/03/18 09:16 Dose: 40 mg Rosuvastatin Calcium (Crestor) 10 mg PO HS [facility] Last Admin: 06/02/18 21:22 Dose: 10 mg Sevelamer Carbonate (Renvela) 2.4 gm PO TIDCC [facility] Last Admin: 06/03/18 17:39 Dose: 2.4 gm Tramadol HCl (Ultram) 50 mg PO Q8H PRN PRN Reason: Pain, moderate (4-7) - Labs Labs: 06/03/18 08:07 06/03/18 08:07 PT 12.3 SECONDS (9.7-12.2) H 06/01/18 11:06 INR 1.1 06/01/18 11:06 APTT 39 SECONDS (21-34) H 06/01/18 11:06 - Constitutional Appears: Well - Head Exam Head Exam: ATRAUMATIC, NORMAL INSPECTION, NORMOCEPHALIC - Eye Exam Eye Exam: EOMI, Normal appearance, PERRL Pupil Exam: NORMAL ACCOMODATION, PERRL - ENT Exam ENT Exam: Mucous Membranes Moist, Normal Exam - Neck Exam Neck Exam: Full ROM, Normal Inspection. absent: Lymphadenopathy - Respiratory Exam Respiratory Exam: Decreased Breath Sounds - Cardiovascular Exam Cardiovascular Exam: REGULAR RHYTHM, +S1, +S2 - GI/Abdominal Exam GI & Abdominal Exam: Soft, Diminished Bowel Sounds - Rectal Exam Rectal Exam: Deferred Assessment and Plan - Assessment and Plan (Free Text) Plan: Spoke to the patient Patient still has pain and some changes of cellulitis especially on the right leg Status post ID IV HTN IV clindamycin IV Merrem IV vancomycin Hemodialysis As ordered
--- NOTE | 2018-06-03 21:07 | PN ---
DATE: 06/03/2018 SUBJECTIVE: The patient is still having fevers of 100.5, 100.3. He states he cut himself near the perineal in the right groin and it is hard to evaluate him as he is huge, 403 pounds, still running fevers. He had dialysis yesterday and placement of a new dialysis catheter as his AV fistula is clotted. PHYSICAL EXAMINATION: GENERAL: He is awake, alert, but he is slightly dyspneic. VITAL SIGNS: Heart rate is 92, blood pressure 99/62, respirations are 20. HEENT: Head is atraumatic, normocephalic. NECK: Supple. LUNGS: Clear. Occasional rhonchi. HEART: S1 and S2 is regular. ABDOMEN: Flabby. Nontender. 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 He has huge legs with multiple folds. Even in the groin area, I tried to check, appears to be soft, but cannot be sure if he has any cellulitis versus abscess present. He does have a left fistula, which is arm fistula, which is clotted. Labs are noted. Labs showed white count is 24.4, hemoglobin 8, hematocrit 25.3, platelet count is 208. Creatinine is 10.7, BUN is 55. PTH intact. Whole molecule was 890. Microwise, his blood cultures have gram negative rods and further ID and sensitive is still pending, and since in the past, he has had gram positive, I have left the antibiotics , and he is on multiple antibiotics, still remains hypotensive. He is going to get vancomycin, TTS, and he has no issues with meropenem. He is getting meropenem, and he is on Azactam. Since he does have lot of cellulitis that could be in the folds, I have left clindamycin on as they are going to help in case he has deep seated cellulitis versus abscess. We have ordered an echocardiogram because I do not see any order to rule out any vegetation as he does have gram negative septicemia and he is being followed by the Vascular, and we will rule out endocarditis, and we will follow. At this time, I am going to leave him all the antibiotics and repeat his labs tomorrow and will follow. Once the culture is finalized, we may update the antibiotics further. We will follow. The patient came in with cellulitis and elephantiasis of the bilateral lower extremities. He has end-stage renal disease with gram-negative septicemia, hypotensive, and the fistula is also not functioning at this time. Alec Boucher MD
[2018-06-03] MEDS: Morphine 4 MG/ML VIAL IVP PRN (23:59)
[2018-06-04] MEDS: Morphine 4 MG/ML VIAL IVP PRN ×4 (06:17→22:01)
[2018-06-04] MEDS: (Novolog) Insulin Aspart, Recombinant 100 u/ml 10 ml vial SC SCH ×4 (07:34→22:21)
[2018-06-04] MEDS: Sevelamer Carb 2.4 gm/Packet PO SCH ×3 (08:39→17:28)
[2018-06-04] MEDS: Pantoprazole 40 mg EC Tab PO SCH (09:01)
--- NOTE | 2018-06-04 10:06 | CP.PCM.PN ---
Subjective - Date & Time of Evaluation Date of Evaluation: 06/04/18 Time of Evaluation: 10:04 - Subjective Subjective: less right thigh pains has been afebrile +GNR bacteremia reported- on appropriate antibiotics for dialysis this AM otherwise appears same Objective - Vital Signs/Intake and Output Vital Signs (last 24 hours): Temp Pulse Resp BP Pulse Ox 98.8 F 88 20 105/67 96 06/04/18 07:28 06/04/18 07:58 06/04/18 07:28 06/04/18 07:28 06/04/18 07:28 - Medications Medications: Current Medications Acetaminophen (Tylenol 325mg Tab) 650 mg PO Q6 PRN PRN Reason: Fever >100.4 F Last Admin: 06/03/18 00:20 Dose: 650 mg Calcium Acetate (Phoslo) 667 mg PO TID [facility] Last Admin: 06/04/18 09:01 Dose: 667 mg Docusate Sodium (Colace) 100 mg PO BID [facility] Last Admin: 06/04/18 09:01 Dose: 100 mg Epoetin Ventura (Procrit) 10,000 unit IV TTS [facility] Last Admin: 06/02/18 18:37 Dose: 10,000 unit Furosemide (Lasix) 40 mg PO DAILY [facility] Last Admin: 06/03/18 09:16 Dose: 40 mg Aztreonam 1 gm/ Sodium (Chloride) 100 mls @ 100 mls/hr IVPB DAILY [facility]E PRN Reason: Protocol Last Admin: 06/03/18 10:02 Dose: 100 mls/hr Clindamycin Phosphate 600 mg/ (Sodium Chloride) 54 mls @ 100 mls/hr IVPB Q8H JOSSIE PRN Reason: Protocol Last Admin: 06/04/18 06:09 Dose: 100 mls/hr Meropenem 500 mg/ Sodium (Chloride) 100 mls @ 100 mls/hr IVPB Q12 JOSSIE PRN Reason: Protocol Last Admin: 06/03/18 21:24 Dose: 100 mls/hr Vancomycin/Sodium Chloride (Vancomycin 1 Gm/Ns 200 Ml) 1 gm in 200 mls @ 133.333 mls/hr IVPB TTS JOSSIE PRN Reason: Protocol Stop: 06/09/18 10:01 Insulin Aspart (Novolog) 0 unit SC ACHS JOSSIE PRN Reason: Protocol Last Admin: 06/04/18 07:34 Dose: Not Given Methylprednisolone (Solu-Medrol) 125 mg IVP ONCE PRN PRN Reason: Allergy symptoms Morphine Sulfate (Morphine) 6 mg IVP Q4H PRN PRN Reason: Pain, severe (8-10) Last Admin: 06/04/18 06:17 Dose: 6 mg Pantoprazole Sodium (Protonix Ec Tab) 40 mg PO DAILY [facility] Last Admin: 06/04/18 09:01 Dose: 40 mg Rosuvastatin Calcium (Crestor) 10 mg PO HS [facility] Last Admin: 06/03/18 21:24 Dose: 10 mg Sevelamer Carbonate (Renvela) 2.4 gm PO TIDCC [facility] Last Admin: 06/04/18 08:39 Dose: 2.4 gm Tramadol HCl (Ultram) 50 mg PO Q8H PRN PRN Reason: Pain, moderate (4-7) - Labs Labs: 06/03/18 08:07 06/03/18 08:07 PT 12.3 SECONDS (9.7-12.2) H 06/01/18 11:06 INR 1.1 06/01/18 11:06 APTT 39 SECONDS (21-34) H 06/01/18 11:06 - Constitutional Appears: No Acute Distress, Chronically Ill - Head Exam Head Exam: ATRAUMATIC, NORMAL INSPECTION - Eye Exam Eye Exam: EOMI, Normal appearance - Neck Exam Neck Exam: Normal Inspection. absent: Tenderness - Respiratory Exam Respiratory Exam: Rhonchi, NORMAL BREATHING PATTERN - Cardiovascular Exam Cardiovascular Exam: REGULAR RHYTHM, +S1 - GI/Abdominal Exam GI & Abdominal Exam: Soft. absent: Tenderness - Extremities Exam Extremities Exam: Pedal Edema, Tenderness - Neurological Exam Neurological Exam: Alert, Awake - Skin Skin Exam: Dry, Warm Assessment and Plan (1) End stage renal disease Status: Acute (2) Hypertensive chronic kidney disease with stage 5 chronic kidney disease or end stage renal disease Status: Acute (3) Morbid obesity Status: Acute (4) Lymphedema of lower extremity Status: Chronic (5) AV graft thrombosis Status: Acute (6) Bacteremia due to Gram-negative bacteria Status: Acute (7) Cellulitis of right leg Status: Acute - Assessment and Plan (Free Text) Plan: IV ABs monitor right LE dialysis now and TTS pain management
[2018-06-04] MEDS: Aztreonam 1 GM in Sodium Chloride 0.9% 100 ML IVPB SCH (10:27)
[2018-06-04] MEDS: Meropenem 500 MG in Sodium Chloride 0.9% 100 ML IVPB SCH ×2 (10:27→21:50)
[2018-06-04 10:55] LABS: HEMOGLOBIN 7.6 g/dL (12.0-18.0); MEAN CELL VOLUME 76.3 fL (80.0-94.0); MEAN CORPUSCULAR HEMOGLOBIN 24.5 pg (27.0-31.0); MEAN CORPUSCULAR HGB CONC 32.2 g/dL (33.0-37.0); MEAN PLATELET VOLUME 8.1 fL (7.2-11.7); RBC 3.09 Mil/uL (4.40-5.90); RED CELL DISTRIBUTION WIDTH 18.9 % (11.5-14.5); WHITE BLOOD COUNT 26.5 K/uL (4.8-10.8)
[2018-06-04 11:21] LABS: ALB/GLOB RATIO 0.9 (1.0-2.1); ALBUMIN 3.2 g/dL (3.5-5.0); CALCIUM 8.5 mg/dl (8.6-10.4)
[2018-06-04] MEDS: Epoetin Alfa 10,000 unit/ml Dialysis IV SCH (12:13)
[2018-06-04] MEDS: Lactobacillus Acidophilus 500 MU Cap PO SCH ×2 (12:15→17:28)
[2018-06-04] MEDS: Vancomycin 1 gm/NS 200 ml 1 GM/200 ML BAG IVPB SCH (14:31)
[2018-06-04] MEDS: Ciprofloxacin 400mg/200ml D5W 400 MG/200 ML BAG IVPB SCH (17:28)
--- NOTE | 2018-06-04 20:32 | CP.PCM.PN ---
Subjective - Date & Time of Evaluation Date of Evaluation: 06/04/18 Time of Evaluation: 09:00 - Subjective Subjective: clinically same Objective - Vital Signs/Intake and Output Vital Signs (last 24 hours): Temp Pulse Resp BP Pulse Ox 98.6 F 87 18 101/69 95 06/04/18 16:00 06/04/18 16:00 06/04/18 16:00 06/04/18 16:00 06/04/18 16:00 Intake and Output: 06/04/18 06/05/18 18:59 06:59 Intake Total 600 Balance 600 - Medications Medications: Current Medications Acetaminophen (Tylenol 325mg Tab) 650 mg PO Q6 PRN PRN Reason: Fever >100.4 F Last Admin: 06/03/18 00:20 Dose: 650 mg Calcium Acetate (Phoslo) 667 mg PO TID [facility] Last Admin: 06/04/18 17:28 Dose: 667 mg Docusate Sodium (Colace) 100 mg PO BID [facility] Last Admin: 06/04/18 17:28 Dose: 100 mg Epoetin Ventura (Procrit) 10,000 unit IV TTS [facility] Last Admin: 06/04/18 12:13 Dose: 10,000 unit Furosemide (Lasix) 40 mg PO DAILY [facility] Last Admin: 06/04/18 10:27 Dose: Not Given Meropenem 500 mg/ Sodium (Chloride) 100 mls @ 100 mls/hr IVPB Q12 [facility] PRN Reason: Protocol Last Admin: 06/04/18 10:27 Dose: Not Given Vancomycin/Sodium Chloride (Vancomycin 1 Gm/Ns 200 Ml) 1 gm in 200 mls @ 133.333 mls/hr IVPB TTS [facility] PRN Reason: Protocol Stop: 06/09/18 10:01 Last Admin: 06/04/18 14:31 Dose: 133.333 mls/hr Ciprofloxacin (Cipro 400mg/200ml Dsw) 400 mg in 200 mls @ 133 mls/hr IVPB Q24H [facility] PRN Reason: Protocol Last Admin: 06/04/18 17:28 Dose: 133 mls/hr Insulin Aspart (Novolog) 0 unit SC ACHS [facility] PRN Reason: Protocol Last Admin: 06/04/18 16:46 Dose: Not Given Lactobacillus Acidophilus (Bacid Acidophilus) 1 cap PO BID [facility] Last Admin: 06/04/18 17:28 Dose: 1 cap Methylprednisolone (Solu-Medrol) 125 mg IVP ONCE PRN PRN Reason: Allergy symptoms Morphine Sulfate (Morphine) 6 mg IVP Q4H PRN PRN Reason: Pain, severe (8-10) Last Admin: 06/04/18 14:59 Dose: 6 mg Pantoprazole Sodium (Protonix Ec Tab) 40 mg PO DAILY [facility] Last Admin: 06/04/18 09:01 Dose: 40 mg Rosuvastatin Calcium (Crestor) 10 mg PO HS [facility] Last Admin: 06/03/18 21:24 Dose: 10 mg Sevelamer Carbonate (Renvela) 2.4 gm PO TIDCC [facility] Last Admin: 06/04/18 17:28 Dose: 2.4 gm Tramadol HCl (Ultram) 50 mg PO Q8H PRN PRN Reason: Pain, moderate (4-7) - Labs Labs: 06/04/18 10:52 06/04/18 10:52 PT 12.3 SECONDS (9.7-12.2) H 06/01/18 11:06 INR 1.1 06/01/18 11:06 APTT 39 SECONDS (21-34) H 06/01/18 11:06 - Constitutional Appears: Well - Head Exam Head Exam: ATRAUMATIC, NORMAL INSPECTION, NORMOCEPHALIC - Eye Exam Eye Exam: EOMI, Normal appearance, PERRL Pupil Exam: NORMAL ACCOMODATION, PERRL - ENT Exam ENT Exam: Mucous Membranes Moist, Normal Exam - Neck Exam Neck Exam: Full ROM, Normal Inspection. absent: Lymphadenopathy - Respiratory Exam Respiratory Exam: Decreased Breath Sounds - Cardiovascular Exam Cardiovascular Exam: REGULAR RHYTHM, +S1, +S2 - GI/Abdominal Exam GI & Abdominal Exam: Soft, Diminished Bowel Sounds - Rectal Exam Rectal Exam: Deferred Assessment and Plan - Assessment and Plan (Free Text) Plan: Gram-negative bacteremia On IV IV antibiotic history of IV cipro IV meropenem and IV vancomycin hd followup with renal Follow-up with the renal follow-up with the ID As ordered
[2018-06-05] MEDS: Morphine 4 MG/ML VIAL IVP PRN ×4 (06:17→23:37)
[2018-06-05] MEDS: (Novolog) Insulin Aspart, Recombinant 100 u/ml 10 ml vial SC SCH ×4 (07:19→21:51)
[2018-06-05] MEDS: Sevelamer Carb 2.4 gm/Packet PO SCH ×3 (08:37→17:25)
[2018-06-05] MEDS: Pantoprazole 40 mg EC Tab PO SCH (10:16)
[2018-06-05] MEDS: Lactobacillus Acidophilus 500 MU Cap PO SCH ×2 (10:16→17:25)
[2018-06-05] MEDS: Meropenem 500 MG in Sodium Chloride 0.9% 100 ML IVPB SCH ×2 (10:17→22:00)
[2018-06-05] MEDS: Ciprofloxacin 400mg/200ml D5W 400 MG/200 ML BAG IVPB SCH (13:53)
--- NOTE | 2018-06-05 14:25 | CP.PCM.PN ---
Subjective - Date & Time of Evaluation Date of Evaluation: 06/05/18 Time of Evaluation: 09:00 - Subjective Subjective: clinically same Objective - Vital Signs/Intake and Output Vital Signs (last 24 hours): Temp Pulse Resp BP Pulse Ox 99.0 F 95 H 20 108/65 95 06/05/18 08:42 06/05/18 12:00 06/05/18 08:42 06/05/18 10:20 06/05/18 08:42 - Medications Medications: Current Medications Acetaminophen (Tylenol 325mg Tab) 650 mg PO Q6 PRN PRN Reason: Fever >100.4 F Last Admin: 06/03/18 00:20 Dose: 650 mg Calcium Acetate (Phoslo) 667 mg PO TID [facility] Last Admin: 06/05/18 13:53 Dose: 667 mg Docusate Sodium (Colace) 100 mg PO BID [facility] Last Admin: 06/05/18 10:16 Dose: 100 mg Epoetin Ventura (Procrit) 10,000 unit IV TTS [facility] Last Admin: 06/04/18 12:13 Dose: 10,000 unit Furosemide (Lasix) 40 mg PO DAILY [facility] Last Admin: 06/05/18 10:20 Dose: 40 mg Meropenem 500 mg/ Sodium (Chloride) 100 mls @ 100 mls/hr IVPB Q12 [facility] PRN Reason: Protocol Last Admin: 06/05/18 10:17 Dose: 100 mls/hr Vancomycin/Sodium Chloride (Vancomycin 1 Gm/Ns 200 Ml) 1 gm in 200 mls @ 133.333 mls/hr IVPB TTS [facility] PRN Reason: Protocol Stop: 06/09/18 10:01 Last Admin: 06/04/18 14:31 Dose: 133.333 mls/hr Ciprofloxacin (Cipro 400mg/200ml Dsw) 400 mg in 200 mls @ 133 mls/hr IVPB Q24H [facility] PRN Reason: Protocol Last Admin: 06/05/18 13:53 Dose: 133 mls/hr Insulin Aspart (Novolog) 0 unit SC ACHS [facility] PRN Reason: Protocol Last Admin: 06/05/18 11:59 Dose: Not Given Lactobacillus Acidophilus (Bacid Acidophilus) 1 cap PO BID [facility] Last Admin: 06/05/18 10:16 Dose: 1 cap Methylprednisolone (Solu-Medrol) 125 mg IVP ONCE PRN PRN Reason: Allergy symptoms Morphine Sulfate (Morphine) 6 mg IVP Q4H PRN PRN Reason: Pain, severe (8-10) Last Admin: 06/05/18 10:30 Dose: 6 mg Pantoprazole Sodium (Protonix Ec Tab) 40 mg PO DAILY [facility] Last Admin: 06/05/18 10:16 Dose: 40 mg Rosuvastatin Calcium (Crestor) 10 mg PO HS [facility] Last Admin: 06/04/18 21:50 Dose: 10 mg Sevelamer Carbonate (Renvela) 2.4 gm PO TIDCC [facility] Last Admin: 06/05/18 12:53 Dose: 2.4 gm Tramadol HCl (Ultram) 50 mg PO Q8H PRN PRN Reason: Pain, moderate (4-7) - Labs Labs: 06/04/18 10:52 06/04/18 10:52 PT 12.3 SECONDS (9.7-12.2) H 06/01/18 11:06 INR 1.1 06/01/18 11:06 APTT 39 SECONDS (21-34) H 06/01/18 11:06 - Constitutional Appears: Well - Head Exam Head Exam: ATRAUMATIC, NORMAL INSPECTION, NORMOCEPHALIC - Eye Exam Eye Exam: EOMI, Normal appearance, PERRL Pupil Exam: NORMAL ACCOMODATION, PERRL - ENT Exam ENT Exam: Mucous Membranes Moist, Normal Exam - Neck Exam Neck Exam: Full ROM, Normal Inspection. absent: Lymphadenopathy - Respiratory Exam Respiratory Exam: Decreased Breath Sounds - Cardiovascular Exam Cardiovascular Exam: REGULAR RHYTHM, +S1, +S2 - GI/Abdominal Exam GI & Abdominal Exam: Soft, Diminished Bowel Sounds - Rectal Exam Rectal Exam: Deferred
--- NOTE | 2018-06-05 14:46 | CP.PCM.PN ---
Subjective - Date & Time of Evaluation Date of Evaluation: 06/05/18 Time of Evaluation: 01:40 - Subjective Subjective: dictated Objective - Vital Signs/Intake and Output Vital Signs (last 24 hours): Temp Pulse Resp BP Pulse Ox 99.0 F 95 H 20 108/65 95 06/05/18 08:42 06/05/18 12:00 06/05/18 08:42 06/05/18 10:20 06/05/18 08:42 - Medications Medications: Current Medications Acetaminophen (Tylenol 325mg Tab) 650 mg PO Q6 PRN PRN Reason: Fever >100.4 F Last Admin: 06/03/18 00:20 Dose: 650 mg Calcium Acetate (Phoslo) 667 mg PO TID [facility] Last Admin: 06/05/18 13:53 Dose: 667 mg Docusate Sodium (Colace) 100 mg PO BID [facility] Last Admin: 06/05/18 10:16 Dose: 100 mg Epoetin Ventura (Procrit) 10,000 unit IV TTS [facility] Last Admin: 06/04/18 12:13 Dose: 10,000 unit Furosemide (Lasix) 40 mg PO DAILY [facility] Last Admin: 06/05/18 10:20 Dose: 40 mg Guaifenesin (Robitussin) 100 mg PO QID [facility] Meropenem 500 mg/ Sodium (Chloride) 100 mls @ 100 mls/hr IVPB Q12 [facility] PRN Reason: Protocol Last Admin: 06/05/18 10:17 Dose: 100 mls/hr Vancomycin/Sodium Chloride (Vancomycin 1 Gm/Ns 200 Ml) 1 gm in 200 mls @ 133.333 mls/hr IVPB TTS [facility] PRN Reason: Protocol Stop: 06/09/18 10:01 Last Admin: 06/04/18 14:31 Dose: 133.333 mls/hr Ciprofloxacin (Cipro 400mg/200ml Dsw) 400 mg in 200 mls @ 133 mls/hr IVPB Q24H [facility] PRN Reason: Protocol Last Admin: 06/05/18 13:53 Dose: 133 mls/hr Insulin Aspart (Novolog) 0 unit SC ACHS [facility] PRN Reason: Protocol Last Admin: 06/05/18 11:59 Dose: Not Given Lactobacillus Acidophilus (Bacid Acidophilus) 1 cap PO BID [facility] Last Admin: 06/05/18 10:16 Dose: 1 cap Methylprednisolone (Solu-Medrol) 125 mg IVP ONCE PRN PRN Reason: Allergy symptoms Morphine Sulfate (Morphine) 6 mg IVP Q4H PRN PRN Reason: Pain, severe (8-10) Last Admin: 06/05/18 14:34 Dose: 6 mg Pantoprazole Sodium (Protonix Ec Tab) 40 mg PO DAILY [facility] Last Admin: 06/05/18 10:16 Dose: 40 mg Rosuvastatin Calcium (Crestor) 10 mg PO HS [facility] Last Admin: 06/04/18 21:50 Dose: 10 mg Sevelamer Carbonate (Renvela) 2.4 gm PO TIDCC [facility] Last Admin: 06/05/18 12:53 Dose: 2.4 gm Tramadol HCl (Ultram) 50 mg PO Q8H PRN PRN Reason: Pain, moderate (4-7) - Labs Labs: 06/04/18 10:52 06/04/18 10:52 PT 12.3 SECONDS (9.7-12.2) H 06/01/18 11:06 INR 1.1 06/01/18 11:06 APTT 39 SECONDS (21-34) H 06/01/18 11:06
[2018-06-05] MEDS: guaiFENesin 100 mg/5 ml Syrup UD PO SCH ×2 (17:25→22:00)
--- NOTE | 2018-06-05 21:21 | PN ---
DATE: 06/05/2018 SUBJECTIVE: The patient states that he is coughing a lot and he wants a cough medication. He says his legs are hurting less, but he thinks he needs extra dialysis and seems to be needing that. He says normal days are Tuesdays, , and Saturdays, but it seems that he cannot wait for that as he feels he needs it earlier. PHYSICAL EXAMINATION: GENERAL: He is awake and alert, able to give his complaints. VITAL SIGNS: T-max is 99, pulse 97, blood pressure is 108/65, respirations are 20. I told him that his cultures have been positive. HEENT: Head is atraumatic and normocephalic. NECK: Supple. LUNGS: No rhonchi or wheezing, decreased breath sounds. ABDOMEN: He is morbidly obese. Abdomen is soft, flabby. HEART: S1 and S2 regular. EXTREMITIES: Remain with swelling, and he has elephantiasis of both lower extremities. There is no warmth present at this time. He did have some perineal cut, he said. LABORATORY DATA: Labs are noted. Labs show white count remains high at 26.4. This is from yesterday. Hemoglobin 7.6, hematocrit is 23.5, platelet count is 207. Yesterday's cultures finalized which said Acinetobacter haemolyticus which is Cipro and meropenem sensitive, and he has high white count. PLAN: We put him on meropenem and Cipro at this time, and we will follow. He is also on lactobacillus and follow. We will place him on cough syrup as he is asking for one. He has a left arm fistula which is clogged and he got a new subclavian catheter recently, so I am going to order blood cultures on the next dialysis, as his cultures have been positive, and he is on double antibiotics and we will follow. He has Acinetobacter most likely due to cellulitis and elephantiasis, and he has end-stage renal disease, also has clogged fistula, which may be a mechanical problem and we will follow. Alec Boucher MD
[2018-06-06] MEDS: (Novolog) Insulin Aspart, Recombinant 100 u/ml 10 ml vial SC SCH ×4 (07:26→21:50)
[2018-06-06] MEDS: Morphine 4 MG/ML VIAL IVP PRN ×2 (08:49→21:57)
[2018-06-06] MEDS: Sevelamer Carb 2.4 gm/Packet PO SCH ×3 (08:54→17:41)
[2018-06-06] MEDS: Lactobacillus Acidophilus 500 MU Cap PO SCH ×2 (09:07→17:41)
[2018-06-06] MEDS: Pantoprazole 40 mg EC Tab PO SCH (09:07)
[2018-06-06] MEDS: guaiFENesin 100 mg/5 ml Syrup UD PO SCH ×4 (09:07→21:51)
[2018-06-06] MEDS: Meropenem 500 MG in Sodium Chloride 0.9% 100 ML IVPB SCH ×2 (10:29→21:50)
[2018-06-06 11:45] LABS: BASO % 0.3 % (0.0-2.0); EOS # 0.1 K/uL (0.0-0.7); EOS % 0.7 % (0.0-4.0); HEMOGLOBIN 7.8 g/dL (12.0-18.0); LYMPH # 0.9 K/uL (1.0-4.3); LYMPH % 5.4 % (20.0-40.0); MEAN CELL VOLUME 76.5 fL (80.0-94.0); MEAN CORPUSCULAR HEMOGLOBIN 24.6 pg (27.0-31.0); MEAN CORPUSCULAR HGB CONC 32.2 g/dL (33.0-37.0); MEAN PLATELET VOLUME 8.7 fL (7.2-11.7); MONO # 0.6 K/uL (0.0-0.8); MONO % 3.8 % (0.0-10.0); NEUT # 14.5 K/uL (1.8-7.0); NEUT % 89.8 % (50.0-75.0); NRBC % 0.1 % (0.0-2.0); PLATELET COUNT 232 K/uL (130-400); RBC 3.18 Mil/uL (4.40-5.90); RED CELL DISTRIBUTION WIDTH 19.4 % (11.5-14.5); WHITE BLOOD COUNT 16.1 K/uL (4.8-10.8)
--- NOTE | 2018-06-06 11:51 | CP.PCM.PN ---
Subjective - Date & Time of Evaluation Date of Evaluation: 06/06/18 Time of Evaluation: 11:48 - Subjective Subjective: just received MS- tired now stable dialysis 06/04 +acinebacter blood cultures- possibly from cellulitis LE vs line bacteremia TSat only 4.1 % due to lethargy cannot obtain further ROS Objective - Vital Signs/Intake and Output Vital Signs (last 24 hours): Temp Pulse Resp BP Pulse Ox 98.9 F 100 H 20 117/68 96 06/06/18 07:50 06/06/18 07:59 06/06/18 07:50 06/06/18 09:07 06/06/18 07:50 Intake and Output: 06/06/18 06/06/18 06:59 18:59 Intake Total 300 Output Total 100 Balance 200 - Medications Medications: Current Medications Acetaminophen (Tylenol 325mg Tab) 650 mg PO Q6 PRN PRN Reason: Fever >100.4 F Last Admin: 06/03/18 00:20 Dose: 650 mg Calcium Acetate (Phoslo) 667 mg PO TID [facility] Last Admin: 06/06/18 09:07 Dose: 667 mg Docusate Sodium (Colace) 100 mg PO BID [facility] Last Admin: 06/06/18 09:07 Dose: 100 mg Epoetin Ventura (Procrit) 10,000 unit IV TTS [facility] Last Admin: 06/04/18 12:13 Dose: 10,000 unit Furosemide (Lasix) 40 mg PO DAILY [facility] Last Admin: 06/06/18 09:07 Dose: 40 mg Guaifenesin (Robitussin) 100 mg PO QID [facility] Last Admin: 06/06/18 09:07 Dose: 100 mg Meropenem 500 mg/ Sodium (Chloride) 100 mls @ 100 mls/hr IVPB Q12 [facility] PRN Reason: Protocol Last Admin: 06/06/18 10:29 Dose: 100 mls/hr Vancomycin/Sodium Chloride (Vancomycin 1 Gm/Ns 200 Ml) 1 gm in 200 mls @ 133.333 mls/hr IVPB TTS [facility] PRN Reason: Protocol Stop: 06/09/18 10:01 Last Admin: 06/04/18 14:31 Dose: 133.333 mls/hr Ciprofloxacin (Cipro 400mg/200ml Dsw) 400 mg in 200 mls @ 133 mls/hr IVPB Q24H [facility] PRN Reason: Protocol Last Admin: 06/05/18 13:53 Dose: 133 mls/hr Insulin Aspart (Novolog) 0 unit SC ACHS [facility] PRN Reason: Protocol Last Admin: 06/06/18 11:29 Dose: Not Given Lactobacillus Acidophilus (Bacid Acidophilus) 1 cap PO BID [facility] Last Admin: 06/06/18 09:07 Dose: 1 cap Methylprednisolone (Solu-Medrol) 125 mg IVP ONCE PRN PRN Reason: Allergy symptoms Morphine Sulfate (Morphine) 6 mg IVP Q4H PRN PRN Reason: Pain, severe (8-10) Last Admin: 06/06/18 08:49 Dose: 6 mg Pantoprazole Sodium (Protonix Ec Tab) 40 mg PO DAILY [facility] Last Admin: 06/06/18 09:07 Dose: 40 mg Rosuvastatin Calcium (Crestor) 10 mg PO HS [facility] Last Admin: 06/05/18 22:00 Dose: 10 mg Sevelamer Carbonate (Renvela) 2.4 gm PO TIDCC [facility] Last Admin: 06/06/18 08:54 Dose: 2.4 gm Tramadol HCl (Ultram) 50 mg PO Q8H PRN PRN Reason: Pain, moderate (4-7) - Labs Labs: 06/06/18 11:38 06/04/18 10:52 PT 12.3 SECONDS (9.7-12.2) H 06/01/18 11:06 INR 1.1 06/01/18 11:06 APTT 39 SECONDS (21-34) H 06/01/18 11:06 - Constitutional Appears: Confused, Chronically Ill - Head Exam Head Exam: ATRAUMATIC, NORMAL INSPECTION - Eye Exam Eye Exam: EOMI, Normal appearance - Neck Exam Neck Exam: Normal Inspection. absent: Tenderness - Respiratory Exam Respiratory Exam: Clear to Ausculation Bilateral, NORMAL BREATHING PATTERN - Cardiovascular Exam Cardiovascular Exam: REGULAR RHYTHM, +S1 - GI/Abdominal Exam GI & Abdominal Exam: Soft. absent: Tenderness - Extremities Exam Extremities Exam: Pedal Edema, Tenderness - Neurological Exam Neurological Exam: Altered, CN II-XII Intact - Skin Skin Exam: Dry, Warm Assessment and Plan (1) End stage renal disease Status: Acute (2) Hypertensive chronic kidney disease with stage 5 chronic kidney disease or end stage renal disease Status: Acute (3) Morbid obesity Status: Acute (4) Lymphedema of lower extremity Status: Chronic (5) AV graft thrombosis Status: Acute (6) Bacteremia due to Gram-negative bacteria Status: Acute (7) Cellulitis of right leg Status: Acute - Assessment and Plan (Free Text) Plan: IV ABs as per ID Dialysis TTS with adequate UF If fevers return would consider dialysis catheter change check stool OB IV Fe- few doses only due to bacteremia
[2018-06-06 12:18] LABS: ALB/GLOB RATIO 0.8 (1.0-2.1); CALCIUM 8.5 mg/dl (8.6-10.4)
[2018-06-06] MEDS ORDERED: Perflutren Lipid Microsphere 1.5 ML SUS IV ONE (12:48)
[2018-06-06 12:51] LABS: BANDS 3 % (0-2); EOSINOPHIL 2 % (0-4); LYMPHOCYTE 5 % (20-40); MONOCYTE 3 % (0-10); NEUTROPHIL 87 % (50-75); PLATELET ESTIMATE NORMAL (NORMAL); TOTAL CELLS COUNTED 100
[2018-06-06 12:52] LABS: ANISOCYTOSIS MODERATE; HYPOCHROMIC MODERATE; POIKILOCYTOSIS SLIGHT; TARGET CELLS SLIGHT
[2018-06-06] MEDS: Ciprofloxacin 400mg/200ml D5W 400 MG/200 ML BAG IVPB SCH (14:03)
--- NOTE | 2018-06-06 14:41 | CP.PCM.PN ---
Subjective - Date & Time of Evaluation Date of Evaluation: 06/06/18 Time of Evaluation: 02:40 - Subjective Subjective: dictated Objective - Vital Signs/Intake and Output Vital Signs (last 24 hours): Temp Pulse Resp BP Pulse Ox 98.9 F 100 H 20 117/68 96 06/06/18 07:50 06/06/18 07:59 06/06/18 07:50 06/06/18 09:07 06/06/18 07:50 Intake and Output: 06/06/18 06/06/18 06:59 18:59 Intake Total 300 Output Total 100 Balance 200 - Medications Medications: Current Medications Acetaminophen (Tylenol 325mg Tab) 650 mg PO Q6 PRN PRN Reason: Fever >100.4 F Last Admin: 06/03/18 00:20 Dose: 650 mg Calcium Acetate (Phoslo) 667 mg PO TID [facility] Last Admin: 06/06/18 14:03 Dose: 667 mg Docusate Sodium (Colace) 100 mg PO BID [facility] Last Admin: 06/06/18 09:07 Dose: 100 mg Epoetin Ventura (Procrit) 10,000 unit IV TTS [facility] Last Admin: 06/04/18 12:13 Dose: 10,000 unit Ferric Sodium Gluconate Complex (Ferrlecit) 125 mg IVPB DAILY [facility] Stop: 06/10/18 10:01 Furosemide (Lasix) 40 mg PO DAILY [facility] Last Admin: 06/06/18 09:07 Dose: 40 mg Guaifenesin (Robitussin) 100 mg PO QID [facility] Last Admin: 06/06/18 14:03 Dose: 100 mg Meropenem 500 mg/ Sodium (Chloride) 100 mls @ 100 mls/hr IVPB Q12 [facility] PRN Reason: Protocol Last Admin: 06/06/18 10:29 Dose: 100 mls/hr Vancomycin/Sodium Chloride (Vancomycin 1 Gm/Ns 200 Ml) 1 gm in 200 mls @ 133.333 mls/hr IVPB TTS [facility] PRN Reason: Protocol Stop: 06/09/18 10:01 Last Admin: 06/04/18 14:31 Dose: 133.333 mls/hr Ciprofloxacin (Cipro 400mg/200ml Dsw) 400 mg in 200 mls @ 133 mls/hr IVPB Q24H [facility] PRN Reason: Protocol Last Admin: 06/06/18 14:03 Dose: 133 mls/hr Insulin Aspart (Novolog) 0 unit SC ACHS [facility] PRN Reason: Protocol Last Admin: 06/06/18 11:29 Dose: Not Given Lactobacillus Acidophilus (Bacid Acidophilus) 1 cap PO BID [facility] Last Admin: 06/06/18 09:07 Dose: 1 cap Methylprednisolone (Solu-Medrol) 125 mg IVP ONCE PRN PRN Reason: Allergy symptoms Morphine Sulfate (Morphine) 6 mg IVP Q4H PRN PRN Reason: Pain, severe (8-10) Last Admin: 06/06/18 08:49 Dose: 6 mg Pantoprazole Sodium (Protonix Ec Tab) 40 mg PO DAILY [facility] Last Admin: 06/06/18 09:07 Dose: 40 mg Rosuvastatin Calcium (Crestor) 10 mg PO HS [facility] Last Admin: 06/05/18 22:00 Dose: 10 mg Sevelamer Carbonate (Renvela) 2.4 gm PO TIDCC [facility] Last Admin: 06/06/18 12:37 Dose: 2.4 gm Tramadol HCl (Ultram) 50 mg PO Q8H PRN PRN Reason: Pain, moderate (4-7) - Labs Labs: 06/06/18 11:38 06/06/18 11:38 PT 12.3 SECONDS (9.7-12.2) H 06/01/18 11:06 INR 1.1 06/01/18 11:06 APTT 39 SECONDS (21-34) H 06/01/18 11:06
--- NOTE | 2018-06-06 20:57 | CP.PCM.CON ---
History of Present Illness - History of Present Illness History of Present Illness: CHART REVIEWED. PT SEEN AND EXAMINED. 52 YO B MALE WITH A HX MORBID OBESITY, HTN, DM, LYMPHEDEMA, CHF, COPD, ADM WITH INCREASED RLE PAIN, CHILLS, AV FISTULA CLOTTED, REQUIRED, URGENT HD., STARTED ON AB., GRAM NEG BACTERMIA NOTED., PT ALERT, INCREASED MOD COUGH WITH MILD SOB AT REST X FEW DAYS., WORSE DAYTIME., DENIES HX HARISH. NO HOME O2. Review of Systems - Review of Systems All systems: reviewed and no additional remarkable complaints except - Constitutional Constitutional: Chills, Fever - EENT Eyes: absent: Change in Vision Ears: absent: Dizziness Nose/Mouth/Throat: absent: Nasal Discharge, Sinus Pressure - Cardiovascular Cardiovascular: absent: Chest Pain - Respiratory Respiratory: Cough, Chest Congestion. absent: Hemoptysis - Gastrointestinal Gastrointestinal: absent: Nausea, Vomiting - Genitourinary Genitourinary: absent: Hematuria - Musculoskeletal Musculoskeletal: Limited Range of Motion - Integumentary Integumentary: Dry Skin, Swelling, Wounds - Neurological Neurological: absent: Confusion, Dizziness - Psychiatric Psychiatric: absent: Anxiety - Endocrine Endocrine: absent: Change in Body Appearance - Hematologic/Lymphatic Hematologic: absent: Easy Bruising Past Patient History - Infectious Disease Hx of Infectious Diseases: None - Past Medical History & Family History Past Medical History?: Yes Past Family History: Reviewed and not pertinent - Past Social History Smoking Status: Current Some Days Smoker Chewing Tobacco Use: No Cigar Use: No Alcohol: Occasional Drugs: Denies Home Situation {Lives}: Alone - CARDIAC Hx Hypertension: Yes Hx Peripheral Edema: Yes - PULMONARY Hx Asthma: Yes Hx Bronchitis: Yes Hx Chronic Obstructive Pulmonary Disease (COPD): Yes Hx Sleep Apnea: No - NEUROLOGICAL Hx Neurological Disorder: No - HEENT Hx HEENT Problems: No - RENAL Hx Chronic Kidney Disease: Yes - ENDOCRINE/METABOLIC Hx Diabetes Mellitus Type 2: Yes - HEMATOLOGICAL/ONCOLOGICAL Hx Anemia: Yes - INTEGUMENTARY Hx Dermatological Problems: Yes Hx Cellulitis: Yes (BILATERAL LEGS) - MUSCULOSKELETAL/RHEUMATOLOGICAL Hx Falls: No - GASTROINTESTINAL Hx Gastrointestinal Disorders: Yes Hx Gastroesophageal Reflux: Yes - GENITOURINARY/GYNECOLOGICAL Hx Genitourinary Disorders: No - PSYCHIATRIC Hx Substance Use: No - SURGICAL HISTORY Hx Surgeries: Yes (Left arm AV Fistula) Hx Vascular Surgery: Yes ([facility]) - ANESTHESIA Hx Anesthesia: Yes Hx Anesthesia Reactions: No Hx Malignant Hyperthermia: No Meds Home Medications: Home Medication List Medication Instructions Recorded Confirmed Type Lactobacillus Acidophilus [Bacid 1 cap PO BID cap 06/17/18 Rx Acidophilus] Lactulose [Enulose] 20 gm PO HS udc 06/17/18 Rx Meropenem [Merrem IV] 500 mg IVPB Q12 7 Days vial 06/17/18 Rx Midodrine [Proamatine] 2.5 mg PO TID tab 06/17/18 Rx Ondansetron [Zofran Tab] 4 mg PO DAILY tab 06/17/18 Rx Polyethylene Glycol 3350 [Miralax] 17 gm PO BID packet 06/17/18 Rx guaiFENesin [Robitussin] 100 mg PO QID udc 06/17/18 Rx Allergies/Adverse Reactions: Allergies Allergy/AdvReac Type Severity Reaction Status Date / Time Penicillins Allergy Verified 10/26/17 16:12 tazobactam [From Zosyn] Allergy Verified 02/04/18 17:27 piperacillin AdvReac ITCHING, Verified 10/22/17 03:21 SHORTNESS OF BREATH PET DANDER Allergy Severe CONGESTION Uncoded 10/22/17 03:21 - Medications Medications: Current Medications Acetaminophen (Tylenol 325mg Tab) 650 mg PO Q6 PRN PRN Reason: Fever >100.4 F Last Admin: 06/03/18 00:20 Dose: 650 mg Albuterol/Ipratropium (Duoneb 3 Mg/0.5 Mg (3 Ml) Ud) 3 ml INH RQ6 [facility] Calcium Acetate (Phoslo) 667 mg PO TID [facility] Last Admin: 06/06/18 17:41 Dose: 667 mg Docusate Sodium (Colace) 100 mg PO BID [facility] Last Admin: 06/06/18 17:41 Dose: 100 mg Epoetin Ventura (Procrit) 10,000 unit IV TTS [facility] Last Admin: 06/04/18 12:13 Dose: 10,000 unit Ferric Sodium Gluconate Complex (Ferrlecit) 125 mg IVPB DAILY [facility] Stop: 06/10/18 10:01 Furosemide (Lasix) 40 mg PO DAILY [facility] Last Admin: 06/06/18 09:07 Dose: 40 mg Guaifenesin (Robitussin) 100 mg PO QID [facility] Last Admin: 06/06/18 17:55 Dose: 100 mg Meropenem 500 mg/ Sodium (Chloride) 100 mls @ 100 mls/hr IVPB Q12 [facility] PRN Reason: Protocol Last Admin: 06/06/18 10:29 Dose: 100 mls/hr Vancomycin/Sodium Chloride (Vancomycin 1 Gm/Ns 200 Ml) 1 gm in 200 mls @ 133.333 mls/hr IVPB TTS [facility] PRN Reason: Protocol Stop: 06/09/18 10:01 Last Admin: 06/04/18 14:31 Dose: 133.333 mls/hr Ciprofloxacin (Cipro 400mg/200ml Dsw) 400 mg in 200 mls @ 133 mls/hr IVPB Q24H [facility] PRN Reason: Protocol Last Admin: 06/06/18 14:03 Dose: 133 mls/hr Insulin Aspart (Novolog) 0 unit SC ACHS [facility] PRN Reason: Protocol Last Admin: 06/06/18 11:29 Dose: Not Given Lactobacillus Acidophilus (Bacid Acidophilus) 1 cap PO BID [facility] Last Admin: 06/06/18 17:41 Dose: 1 cap Methylprednisolone (Solu-Medrol) 125 mg IVP ONCE PRN PRN Reason: Allergy symptoms Morphine Sulfate (Morphine) 6 mg IVP Q4H PRN PRN Reason: Pain, severe (8-10) Last Admin: 06/06/18 08:49 Dose: 6 mg Ondansetron HCl (Zofran Tab) 4 mg PO DAILY [facility] Pantoprazole Sodium (Protonix Ec Tab) 40 mg PO DAILY [facility] Last Admin: 06/06/18 09:07 Dose: 40 mg Rosuvastatin Calcium (Crestor) 10 mg PO HS [facility] Last Admin: 06/05/18 22:00 Dose: 10 mg Sevelamer Carbonate (Renvela) 2.4 gm PO TIDCC [facility] Last Admin: 06/06/18 17:41 Dose: 2.4 gm Tramadol HCl (Ultram) 50 mg PO Q8H PRN PRN Reason: Pain, moderate (4-7) Physical Exam - Constitutional Appears: Chronically Ill - Head Exam Head Exam: ATRAUMATIC, NORMOCEPHALIC - Eye Exam Eye Exam: EOMI, Normal appearance. absent: Scleral icterus - ENT Exam ENT Exam: Mucous Membranes Moist - Neck Exam Neck exam: Negative for: Tenderness - Respiratory Exam Respiratory Exam: Decreased Breath Sounds. absent: Accessory Muscle Use, Wheezes - Cardiovascular Exam Cardiovascular Exam: RRR, +S1, +S2 - GI/Abdominal Exam GI & Abdominal Exam: Soft. absent: Tenderness - Rectal Exam Rectal Exam: Deferred - Extremities Exam Extremities exam: Positive for: pedal edema Additional comments: BILAT LE LYMPHEDEMA - Back Exam Back exam: absent: CVA tenderness (L), CVA tenderness (R) - Neurological Exam Neurological exam: Alert, CN II-XII Intact, Oriented x3 - Psychiatric Exam Psychiatric exam: Normal Mood Results - Vital Signs Recent Vital Signs: Last Vital Signs Temp 98.9 F 06/06/18 07:50 Pulse 94 H 06/06/18 16:34 Resp 20 06/06/18 07:50 BP 117/68 06/06/18 09:07 Pulse Ox 96 06/06/18 07:50 - Labs Result Diagrams: 06/16/18 14:12 06/14/18 11:12 Labs: Laboratory Results - last 24 hr 06/05/18 06/06/18 06/06/18 21:35 06:13 11:24 WBC RBC Hgb Hct MCV MCH MCHC RDW Plt Count MPV Neut % (Auto) Lymph % (Auto) Schley % (Auto) Eos % (Auto) Baso % (Auto) Neut # (Auto) Lymph # (Auto) Schley # (Auto) Eos # (Auto) Baso # (Auto) Neutrophils % (Manual) Band Neutrophils % Lymphocytes % (Manual) Monocytes % (Manual) Eosinophils % (Manual) Platelet Estimate Hypochromasia (manual) Poikilocytosis (manual Anisocytosis (manual) Target Cells Sodium Potassium Chloride Carbon Dioxide Anion Gap BUN Creatinine Est GFR ( Amer) Est GFR (Non-Af Amer) POC Glucose (mg/dL) 84 84 84 Random Glucose Calcium Total Bilirubin AST ALT Alkaline Phosphatase Total Protein Albumin Globulin Albumin/Globulin Ratio 06/06/18 06/06/18 06/06/18 11:38 11:38 16:35 WBC 16.1 H RBC 3.18 L Hgb 7.8 L Hct 24.3 L MCV 76.5 L MCH 24.6 L MCHC 32.2 L RDW 19.4 H Plt Count 232 MPV 8.7 Neut % (Auto) 89.8 H Lymph % (Auto) 5.4 L Schley % (Auto) 3.8 Eos % (Auto) 0.7 Baso % (Auto) 0.3 Neut # (Auto) 14.5 H Lymph # (Auto) 0.9 L Schley # (Auto) 0.6 Eos # (Auto) 0.1 Baso # (Auto) 0.0 Neutrophils % (Manual) 87 H Band Neutrophils % 3 H Lymphocytes % (Manual) 5 L Monocytes % (Manual) 3 Eosinophils % (Manual) 2 Platelet Estimate Normal Hypochromasia (manual) Moderate Poikilocytosis (manual Slight Anisocytosis (manual) Moderate Target Cells Slight Sodium 138 Potassium 4.9 Chloride 97 L Carbon Dioxide 28 Anion Gap 19 BUN 64 H Creatinine 9.3 H* Est GFR ( Amer) 7 Est GFR (Non-Af Amer) 6 POC Glucose (mg/dL) 91 Random Glucose 69 L Calcium 8.5 L Total Bilirubin 0.7 AST 44 ALT 34 Alkaline Phosphatase 229 H D Total Protein 6.8 Albumin 3.0 L Globulin 3.7 Albumin/Globulin Ratio 0.8 L Assessment & Plan (1) COPD exacerbation Status: Acute (2) AV graft thrombosis Status: Acute (3) Bacteremia due to Gram-negative bacteria Status: Acute (4) Cellulitis of right leg Status: Acute (5) ESRD needing dialysis Status: Acute (6) Morbid obesity Status: Acute (7) Anemia Status: Acute (8) Cellulitis Status: Acute (9) Diabetes Status: Acute (10) Hypertension Status: Acute (11) Iron deficiency anemia Status: Acute (12) Lymphedema Status: Acute - Assessment and Plan (Free Text) Assessment: 52 YO MALE WITH A HX MULT MED PROBS ADM WITH GRAM NEG SEPSIS, LE CELLULITIS., CONT IV AB., HD PER RENAL , CXR REVIEWED, NEB BD., MONITOR O2 SAT., GI/DVT PROPHYLAXIS., SMOKING CESSATION. PROG POOR. DISCUSSED WITH STAFF AT LENGTH AND PMD.
--- NOTE | 2018-06-06 20:58 | CP.PCM.PN ---
Subjective - Date & Time of Evaluation Date of Evaluation: 06/06/18 Time of Evaluation: 08:30 - Subjective Subjective: clinically same Objective - Vital Signs/Intake and Output Vital Signs (last 24 hours): Temp Pulse Resp BP Pulse Ox 98.9 F 94 H 20 117/68 96 06/06/18 07:50 06/06/18 16:34 06/06/18 07:50 06/06/18 09:07 06/06/18 07:50 Intake and Output: 06/06/18 06/07/18 18:59 06:59 Intake Total 1100 Output Total 100 Balance 1000 - Medications Medications: Current Medications Acetaminophen (Tylenol 325mg Tab) 650 mg PO Q6 PRN PRN Reason: Fever >100.4 F Last Admin: 06/03/18 00:20 Dose: 650 mg Albuterol/Ipratropium (Duoneb 3 Mg/0.5 Mg (3 Ml) Ud) 3 ml INH RQ6 [facility] Calcium Acetate (Phoslo) 667 mg PO TID [facility] Last Admin: 06/06/18 17:41 Dose: 667 mg Docusate Sodium (Colace) 100 mg PO BID [facility] Last Admin: 06/06/18 17:41 Dose: 100 mg Epoetin Ventura (Procrit) 10,000 unit IV TTS [facility] Last Admin: 06/04/18 12:13 Dose: 10,000 unit Ferric Sodium Gluconate Complex (Ferrlecit) 125 mg IVPB DAILY [facility] Stop: 06/10/18 10:01 Furosemide (Lasix) 40 mg PO DAILY [facility] Last Admin: 06/06/18 09:07 Dose: 40 mg Guaifenesin (Robitussin) 100 mg PO QID [facility] Last Admin: 06/06/18 17:55 Dose: 100 mg Meropenem 500 mg/ Sodium (Chloride) 100 mls @ 100 mls/hr IVPB Q12 [facility] PRN Reason: Protocol Last Admin: 06/06/18 10:29 Dose: 100 mls/hr Vancomycin/Sodium Chloride (Vancomycin 1 Gm/Ns 200 Ml) 1 gm in 200 mls @ 133.333 mls/hr IVPB TTS [facility] PRN Reason: Protocol Stop: 06/09/18 10:01 Last Admin: 06/04/18 14:31 Dose: 133.333 mls/hr Ciprofloxacin (Cipro 400mg/200ml Dsw) 400 mg in 200 mls @ 133 mls/hr IVPB Q24H [facility] PRN Reason: Protocol Last Admin: 06/06/18 14:03 Dose: 133 mls/hr Insulin Aspart (Novolog) 0 unit SC ACHS [facility] PRN Reason: Protocol Last Admin: 06/06/18 11:29 Dose: Not Given Lactobacillus Acidophilus (Bacid Acidophilus) 1 cap PO BID [facility] Last Admin: 06/06/18 17:41 Dose: 1 cap Methylprednisolone (Solu-Medrol) 125 mg IVP ONCE PRN PRN Reason: Allergy symptoms Morphine Sulfate (Morphine) 6 mg IVP Q4H PRN PRN Reason: Pain, severe (8-10) Last Admin: 06/06/18 08:49 Dose: 6 mg Ondansetron HCl (Zofran Tab) 4 mg PO DAILY [facility] Pantoprazole Sodium (Protonix Ec Tab) 40 mg PO DAILY [facility] Last Admin: 06/06/18 09:07 Dose: 40 mg Rosuvastatin Calcium (Crestor) 10 mg PO HS [facility] Last Admin: 06/05/18 22:00 Dose: 10 mg Sevelamer Carbonate (Renvela) 2.4 gm PO TIDCC [facility] Last Admin: 06/06/18 17:41 Dose: 2.4 gm Tramadol HCl (Ultram) 50 mg PO Q8H PRN PRN Reason: Pain, moderate (4-7) - Labs Labs: 06/06/18 11:38 06/06/18 11:38 PT 12.3 SECONDS (9.7-12.2) H 06/01/18 11:06 INR 1.1 06/01/18 11:06 APTT 39 SECONDS (21-34) H 06/01/18 11:06 - Constitutional Appears: Well - Head Exam Head Exam: ATRAUMATIC, NORMAL INSPECTION, NORMOCEPHALIC - Eye Exam Eye Exam: EOMI, Normal appearance, PERRL Pupil Exam: NORMAL ACCOMODATION, PERRL - ENT Exam ENT Exam: Mucous Membranes Moist, Normal Exam - Neck Exam Neck Exam: Full ROM, Normal Inspection. absent: Lymphadenopathy - Respiratory Exam Respiratory Exam: Decreased Breath Sounds - Cardiovascular Exam Cardiovascular Exam: REGULAR RHYTHM, +S1, +S2 - GI/Abdominal Exam GI & Abdominal Exam: Soft, Diminished Bowel Sounds - Rectal Exam Rectal Exam: Deferred
--- NOTE | 2018-06-06 20:59 | CARD ---
APPROVED REPORT EXAM: Two-dimensional and M-mode echocardiogram with Doppler, color Doppler with contrast. Other Information Technically limited study due to body habitus. INDICATION Dyspnea Echo Enhancing Agent Indication: Endocardial border delineation Agent/Amount Used: Definity RISK FACTORS Obesity 2D DIMENSIONS IVSd1.3 (0.7-1.1cm)LVDd5.5 (3.9-5.9cm) PWd1.2 (0.7-1.1cm)LVDs4.0 (2.5-4.0cm) FS (%) 27.1 %LVEF (%)54.0 (>50%) M-Mode DIMENSIONS RVDd0.77 (2.1-3.2cm)Left Atrium (MM)2.93 (2.5-4.0cm) IVSd1.29 (0.7-1.1cm)Aortic Root3.05 (2.2-3.7cm) LVDd6.27 (4.0-5.6cm)Aortic Cusp Exc.2.48 (1.5-2.0cm) PWd1.22 (0.7-1.1cm)FS (%) 29 % LVDs4.72 (2.0-3.8cm)LVEF (%)55 (>50%) Aortic Valve AoV Peak Gpqwlwbq578.1cm/sAoV VTI36.3cmAO Peak GR.17mmHg AO Mean GR.10mmHg Mitral Valve MV E Ilzmmekl618.7cm/sMV A Fouixtsk57.7cm/sE/A ratio1.2 TDI E/Lateral E'0.0E/Medial E'0.0 Tricuspid Valve TR Peak Ohtetmwv023bg/sTR Peak Gr.09ftLtZMNB45jpHa LEFT VENTRICLE The left ventricle is normal size. There is normal left ventricular wall thickness. The left ventricular function is moderately reduced The left ventricular ejection fraction is about 40% Septal motion is paradoxical. The left ventricular diastolic function is indeterminate. No left ventricle thrombus noted on this study. There is no ventricular septal defect visualized. There is no left ventricular aneurysm. There is no mass noted in the left ventricle. RIGHT VENTRICLE The right ventricle is normal size. There is normal right ventricular wall thickness. The right ventricular systolic function is normal. ATRIA The left atrium size is normal. The right atrium size is normal. The interatrial septum is intact with no evidence for an atrial septal defect. AORTIC VALVE The aortic valve is normal in structure and function. No aortic regurgitation is present. There is no aortic valvular stenosis. There is no aortic valvular vegetation. MITRAL VALVE The mitral valve is normal in structure and function. There is no evidence of mitral valve prolapse. There is no mitral valve stenosis. There is no mitral valve regurgitation noted. TRICUSPID VALVE The tricuspid valve is normal in structure and function. There is Mild tricuspid valve regurgitation noted. There is no tricuspid valve prolapse or vegetation. There is no tricuspid valve stenosis. PULMONIC VALVE The pulmonary valve is normal in structure and function. There is no pulmonic valvular regurgitation. There is no pulmonic valvular stenosis. GREAT VESSELS The aortic root is normal in size. The ascending aorta is normal in size. The pulmonary artery is normal. The IVC is normal in size and collapses <50% with inspiration. PERICARDIAL EFFUSION The pericardium appears normal. There is no pleural effusion. <Conclusion> Modrately reduced LV systolic function with paradoxical septal motion. IV definityt study. Poor tricuspid TR tracing, cannot estimate PA pressure. Otherwise normal Doppler.
--- NOTE | 2018-06-07 00:16 | PN ---
DATE: 06/06/2018 SUBJECTIVE: The patient said he was not feeling well. He wanted to eat ice cream and he wanted to eat two of them. I am not sure if he indeed had Acinetobacter from cellulitis, probably could be line sepsis but it is probably hospital-acquired bacteria, and I told him his numbers were getting better, but he said he was not feeling well. The patient remains on Cipro as well as meropenem which we started on 06/02/2018 and he is tolerating meropenem. PHYSICAL EXAMINATION: VITAL SIGNS: T-max is 98.5, pulse 100, blood pressure was 117/68, respirations are 20. HEENT: Head is atraumatic and normocephalic. NECK: Supple. LUNGS: Have occasional rhonchi. HEART: S1 and S2 regular. ABDOMEN: Soft, flabby, nontender. EXTREMITIES: Remain with bilateral elephantiasis. Decreasing warmth and redness. Unable to evaluate the pelvic area. LABORATORY DATA: His white count came down to 16.1. Hemoglobin 7.8, hematocrit 24.3. Platelet count is 232. Neutrophils are 87, bands are 3. Sodium 138, potassium 4.9, chloride is 97, anion gap is 19. Creatinine of 9.3. We will order some DuoNeb as he has requested which was already ordered today. He also has left arm fistula which is also clotted and may need further workup as they placed a new catheter. I had ordered repeat cultures for today to see where we were going with the bacteremia and will follow. So, Acinetobacter could be related to cellulitis of the lines as his fistula has clotted. He has end-stage renal disease. We will follow. He is also morbidly obese and has probably chronic obstructive pulmonary disease with his asthma. Alec Boucher MD
[2018-06-07] MEDS: Albuterol-Ipratrop 3 mg / 0.5 (3 ml) UD INH SCH ×4 (01:07→20:14)
[2018-06-07] MEDS: Morphine 4 MG/ML VIAL IVP PRN ×3 (04:23→22:19)
[2018-06-07] MEDS: (Novolog) Insulin Aspart, Recombinant 100 u/ml 10 ml vial SC SCH ×4 (07:30→22:08)
[2018-06-07] MEDS: Sevelamer Carb 2.4 gm/Packet PO SCH ×3 (08:32→17:52)
--- NOTE | 2018-06-07 08:33 | CP.PCM.PN ---
Subjective - Date & Time of Evaluation Date of Evaluation: 06/07/18 Time of Evaluation: 08:32 - Subjective Subjective: seen and examined for hd today afebrile, bp low c/o pain all over boday specially in legs rt chest permcath, lue avf non functional Objective - Vital Signs/Intake and Output Vital Signs (last 24 hours): Temp Pulse Resp BP Pulse Ox 97.7 F 96 H 20 117/72 100 06/07/18 08:00 06/07/18 08:00 06/07/18 08:00 06/07/18 08:00 06/07/18 08:00 Intake and Output: 06/07/18 06/07/18 06:59 18:59 Intake Total 740 Balance 740 - Medications Medications: Current Medications Acetaminophen (Tylenol 325mg Tab) 650 mg PO Q6 PRN PRN Reason: Fever >100.4 F Last Admin: 06/03/18 00:20 Dose: 650 mg Albuterol/Ipratropium (Duoneb 3 Mg/0.5 Mg (3 Ml) Ud) 3 ml INH RQ6 [facility] Last Admin: 06/07/18 01:07 Dose: 3 ml Calcium Acetate (Phoslo) 667 mg PO TID [facility] Last Admin: 06/06/18 17:41 Dose: 667 mg Docusate Sodium (Colace) 100 mg PO BID [facility] Last Admin: 06/06/18 17:41 Dose: 100 mg Epoetin Ventura (Procrit) 10,000 unit IV TTS [facility] Last Admin: 06/04/18 12:13 Dose: 10,000 unit Ferric Sodium Gluconate Complex (Ferrlecit) 125 mg IVPB DAILY [facility] Stop: 06/10/18 10:01 Furosemide (Lasix) 40 mg PO DAILY [facility] Last Admin: 06/06/18 09:07 Dose: 40 mg Guaifenesin (Robitussin) 100 mg PO QID [facility] Last Admin: 06/06/18 21:51 Dose: 100 mg Meropenem 500 mg/ Sodium (Chloride) 100 mls @ 100 mls/hr IVPB Q12 [facility] PRN Reason: Protocol Last Admin: 06/06/18 21:50 Dose: 100 mls/hr Vancomycin/Sodium Chloride (Vancomycin 1 Gm/Ns 200 Ml) 1 gm in 200 mls @ 133.333 mls/hr IVPB TTS [facility] PRN Reason: Protocol Stop: 06/09/18 10:01 Last Admin: 06/04/18 14:31 Dose: 133.333 mls/hr Ciprofloxacin (Cipro 400mg/200ml Dsw) 400 mg in 200 mls @ 133 mls/hr IVPB Q24H [facility] PRN Reason: Protocol Last Admin: 06/06/18 14:03 Dose: 133 mls/hr Insulin Aspart (Novolog) 0 unit SC ACHS [facility] PRN Reason: Protocol Last Admin: 06/07/18 07:30 Dose: Not Given Lactobacillus Acidophilus (Bacid Acidophilus) 1 cap PO BID [facility] Last Admin: 06/06/18 17:41 Dose: 1 cap Methylprednisolone (Solu-Medrol) 125 mg IVP ONCE PRN PRN Reason: Allergy symptoms Morphine Sulfate (Morphine) 6 mg IVP Q4H PRN PRN Reason: Pain, severe (8-10) Last Admin: 06/07/18 04:23 Dose: 6 mg Ondansetron HCl (Zofran Tab) 4 mg PO DAILY [facility] Last Admin: 06/06/18 16:03 Dose: Not Given Pantoprazole Sodium (Protonix Ec Tab) 40 mg PO DAILY [facility] Last Admin: 06/06/18 09:07 Dose: 40 mg Rosuvastatin Calcium (Crestor) 10 mg PO HS [facility] Last Admin: 06/06/18 21:51 Dose: 10 mg Sevelamer Carbonate (Renvela) 2.4 gm PO TIDCC [facility] Last Admin: 06/06/18 17:41 Dose: 2.4 gm Tramadol HCl (Ultram) 50 mg PO Q8H PRN PRN Reason: Pain, moderate (4-7) - Labs Labs: 06/06/18 11:38 06/06/18 11:38 PT 12.3 SECONDS (9.7-12.2) H 06/01/18 11:06 INR 1.1 06/01/18 11:06 APTT 39 SECONDS (21-34) H 06/01/18 11:06 - Constitutional Appears: Non-toxic, In Acute Distress, Chronically Ill - Head Exam Head Exam: NORMOCEPHALIC - Eye Exam Eye Exam: Normal appearance, PERRL - ENT Exam ENT Exam: Mucous Membranes Moist, Normal Exam - Neck Exam Neck Exam: Normal Inspection - Respiratory Exam Respiratory Exam: Decreased Breath Sounds (distant breath sounds) - Cardiovascular Exam Cardiovascular Exam: REGULAR RHYTHM - GI/Abdominal Exam GI & Abdominal Exam: Distended, Soft - Extremities Exam Extremities Exam: Pedal Edema (b/l chronic stasis) - Neurological Exam Neurological Exam: Alert, Awake, Oriented x3 - Skin Skin Exam: Dry, Intact Assessment and Plan (1) AV graft thrombosis Status: Acute (2) Bacteremia due to Gram-negative bacteria Status: Acute (3) Cellulitis of right leg Status: Acute (4) End stage renal disease Status: Acute (5) Hypertensive chronic kidney disease with stage 5 chronic kidney disease or end stage renal disease Status: Acute (6) Morbid obesity Status: Acute - Assessment and Plan (Free Text) Assessment: repeat blood culture w/ hd today consider line change anibiotics per ID on migue
[2018-06-07] MEDS: Ferric Sodium Gluconat Complex 62.5 mg/5 ml Vial IVPB SCH (09:23)
[2018-06-07 09:41] LABS: BASO % 0.2 % (0.0-2.0); EOS # 0.2 K/uL (0.0-0.7); EOS % 1.1 % (0.0-4.0); HEMOGLOBIN 8.2 g/dL (12.0-18.0); LYMPH # 0.5 K/uL (1.0-4.3); LYMPH % 2.8 % (20.0-40.0); MEAN CELL VOLUME 76.5 fL (80.0-94.0); MEAN CORPUSCULAR HGB CONC 32.6 g/dL (33.0-37.0); MEAN PLATELET VOLUME 8.1 fL (7.2-11.7); MONO # 0.5 K/uL (0.0-0.8); MONO % 2.8 % (0.0-10.0); NEUT # 15.7 K/uL (1.8-7.0); NEUT % 93.1 % (50.0-75.0); NRBC % 0.2 % (0.0-2.0); PLATELET COUNT 288 K/uL (130-400); WHITE BLOOD COUNT 16.8 K/uL (4.8-10.8)
[2018-06-07 09:48] LABS: ALB/GLOB RATIO 0.8 (1.0-2.1); ALBUMIN 3.4 g/dL (3.5-5.0); CALCIUM 8.6 mg/dl (8.6-10.4)
[2018-06-07 10:43] LABS: ANISOCYTOSIS MODERATE; BANDS 11 % (0-2); EOSINOPHIL 2 % (0-4); HYPOCHROMIC SLIGHT; LYMPHOCYTE 5 % (20-40); MONOCYTE 2 % (0-10); NEUTROPHIL 80 % (50-75); PLATELET ESTIMATE NORMAL (NORMAL); TARGET CELLS SLIGHT; TOTAL CELLS COUNTED 100
[2018-06-07] MEDS: guaiFENesin 100 mg/5 ml Syrup UD PO SCH ×3 (10:45→22:06)
[2018-06-07] MEDS: Pantoprazole 40 mg EC Tab PO SCH (10:45)
[2018-06-07] MEDS: Lactobacillus Acidophilus 500 MU Cap PO SCH ×2 (10:45→17:51)
[2018-06-07] MEDS: Meropenem 500 MG in Sodium Chloride 0.9% 100 ML IVPB SCH ×2 (10:45→22:06)
[2018-06-07] MEDS: Epoetin Alfa 10,000 unit/ml Dialysis IV SCH ×2 (10:45→14:26)
[2018-06-07] MEDS: Vancomycin 1 gm/NS 200 ml 1 GM/200 ML BAG IVPB SCH ×2 (10:45→16:31)
--- NOTE | 2018-06-07 11:32 | CP.PCM.PN ---
Subjective - Date & Time of Evaluation Date of Evaluation: 06/07/18 Time of Evaluation: 08:30 - Subjective Subjective: clinically same Objective - Vital Signs/Intake and Output Vital Signs (last 24 hours): Temp Pulse Resp BP Pulse Ox 97.7 F 96 H 20 117/72 100 06/07/18 08:00 06/07/18 08:00 06/07/18 08:00 06/07/18 08:00 06/07/18 08:00 Intake and Output: 06/07/18 06/07/18 06:59 18:59 Intake Total 740 Balance 740 - Medications Medications: Current Medications Acetaminophen (Tylenol 325mg Tab) 650 mg PO Q6 PRN PRN Reason: Fever >100.4 F Last Admin: 06/03/18 00:20 Dose: 650 mg Albuterol/Ipratropium (Duoneb 3 Mg/0.5 Mg (3 Ml) Ud) 3 ml INH RQ6 [facility] Last Admin: 06/07/18 01:07 Dose: 3 ml Calcium Acetate (Phoslo) 667 mg PO TID [facility] Last Admin: 06/07/18 10:45 Dose: Not Given Docusate Sodium (Colace) 100 mg PO BID [facility] Last Admin: 06/07/18 10:45 Dose: Not Given Epoetin Ventura (Procrit) 10,000 unit IV TTS [facility] Last Admin: 06/07/18 10:45 Dose: Not Given Ferric Sodium Gluconate Complex (Ferrlecit) 125 mg IVPB DAILY [facility] Stop: 06/10/18 10:01 Last Admin: 06/07/18 09:23 Dose: 125 mg Furosemide (Lasix) 40 mg PO DAILY [facility] Last Admin: 06/07/18 10:45 Dose: Not Given Guaifenesin (Robitussin) 100 mg PO QID [facility] Last Admin: 06/07/18 10:45 Dose: Not Given Meropenem 500 mg/ Sodium (Chloride) 100 mls @ 100 mls/hr IVPB Q12 JOSSIE PRN Reason: Protocol Last Admin: 06/07/18 10:45 Dose: Not Given Vancomycin/Sodium Chloride (Vancomycin 1 Gm/Ns 200 Ml) 1 gm in 200 mls @ 133.333 mls/hr IVPB TTS JOSSIE PRN Reason: Protocol Stop: 06/09/18 10:01 Last Admin: 06/07/18 10:45 Dose: Not Given Ciprofloxacin (Cipro 400mg/200ml Dsw) 400 mg in 200 mls @ 133 mls/hr IVPB Q24H JOSSIE PRN Reason: Protocol Last Admin: 06/06/18 14:03 Dose: 133 mls/hr Insulin Aspart (Novolog) 0 unit SC ACHS JOSSIE PRN Reason: Protocol Last Admin: 06/07/18 07:30 Dose: Not Given Lactobacillus Acidophilus (Bacid Acidophilus) 1 cap PO BID [facility] Last Admin: 06/07/18 10:45 Dose: Not Given Methylprednisolone (Solu-Medrol) 125 mg IVP ONCE PRN PRN Reason: Allergy symptoms Morphine Sulfate (Morphine) 6 mg IVP Q4H PRN PRN Reason: Pain, severe (8-10) Last Admin: 06/07/18 09:28 Dose: 6 mg Ondansetron HCl (Zofran Tab) 4 mg PO DAILY [facility] Last Admin: 06/07/18 10:45 Dose: Not Given Pantoprazole Sodium (Protonix Ec Tab) 40 mg PO DAILY [facility] Last Admin: 06/07/18 10:45 Dose: Not Given Rosuvastatin Calcium (Crestor) 10 mg PO HS [facility] Last Admin: 06/06/18 21:51 Dose: 10 mg Sevelamer Carbonate (Renvela) 2.4 gm PO TIDCC [facility] Last Admin: 06/07/18 08:32 Dose: 2.4 gm Tramadol HCl (Ultram) 50 mg PO Q8H PRN PRN Reason: Pain, moderate (4-7) - Labs Labs: 06/07/18 09:32 06/07/18 09:32 PT 12.3 SECONDS (9.7-12.2) H 06/01/18 11:06 INR 1.1 06/01/18 11:06 APTT 39 SECONDS (21-34) H 06/01/18 11:06 - Constitutional Appears: Well - Head Exam Head Exam: ATRAUMATIC, NORMAL INSPECTION, NORMOCEPHALIC - Eye Exam Eye Exam: EOMI, Normal appearance, PERRL Pupil Exam: NORMAL ACCOMODATION, PERRL - ENT Exam ENT Exam: Mucous Membranes Moist, Normal Exam - Neck Exam Neck Exam: Full ROM, Normal Inspection. absent: Lymphadenopathy - Respiratory Exam Respiratory Exam: Decreased Breath Sounds - Cardiovascular Exam Cardiovascular Exam: REGULAR RHYTHM, +S1, +S2 - GI/Abdominal Exam GI & Abdominal Exam: Soft, Diminished Bowel Sounds - Rectal Exam Rectal Exam: Deferred Assessment and Plan - Assessment and Plan (Free Text) Plan: Patient still has a pain right leg cellulitis IV Cipro IV meropenem Continue same Hemodialysis Pain medicine IN tablets Lasix Nasal
--- NOTE | 2018-06-07 11:39 | CP.PCM.PN ---
Subjective - Date & Time of Evaluation Date of Evaluation: 06/07/18 Time of Evaluation: 11:36 - Subjective Subjective: PT AWAKE., NO SOB AT REST. +GEN PAIN. ROS ; OTHERWISE NEG Objective - Vital Signs/Intake and Output Vital Signs (last 24 hours): Temp Pulse Resp BP Pulse Ox 97.7 F 96 H 20 117/72 100 06/07/18 08:00 06/07/18 08:00 06/07/18 08:00 06/07/18 08:00 06/07/18 08:00 Intake and Output: 06/07/18 06/07/18 06:59 18:59 Intake Total 740 Balance 740 - Medications Medications: Current Medications Acetaminophen (Tylenol 325mg Tab) 650 mg PO Q6 PRN PRN Reason: Fever >100.4 F Last Admin: 06/03/18 00:20 Dose: 650 mg Albuterol/Ipratropium (Duoneb 3 Mg/0.5 Mg (3 Ml) Ud) 3 ml INH RQ6 [facility] Last Admin: 06/07/18 01:07 Dose: 3 ml Calcium Acetate (Phoslo) 667 mg PO TID [facility] Last Admin: 06/07/18 10:45 Dose: Not Given Docusate Sodium (Colace) 100 mg PO BID [facility] Last Admin: 06/07/18 10:45 Dose: Not Given Epoetin Ventura (Procrit) 10,000 unit IV TTS [facility] Last Admin: 06/07/18 10:45 Dose: Not Given Ferric Sodium Gluconate Complex (Ferrlecit) 125 mg IVPB DAILY [facility] Stop: 06/10/18 10:01 Last Admin: 06/07/18 09:23 Dose: 125 mg Furosemide (Lasix) 40 mg PO DAILY [facility] Last Admin: 06/07/18 10:45 Dose: Not Given Guaifenesin (Robitussin) 100 mg PO QID [facility] Last Admin: 06/07/18 10:45 Dose: Not Given Meropenem 500 mg/ Sodium (Chloride) 100 mls @ 100 mls/hr IVPB Q12 JOSSIE PRN Reason: Protocol Last Admin: 06/07/18 10:45 Dose: Not Given Vancomycin/Sodium Chloride (Vancomycin 1 Gm/Ns 200 Ml) 1 gm in 200 mls @ 133.333 mls/hr IVPB TTS JOSSIE PRN Reason: Protocol Stop: 06/09/18 10:01 Last Admin: 06/07/18 10:45 Dose: Not Given Ciprofloxacin (Cipro 400mg/200ml Dsw) 400 mg in 200 mls @ 133 mls/hr IVPB Q24H JOSSIE PRN Reason: Protocol Last Admin: 06/06/18 14:03 Dose: 133 mls/hr Insulin Aspart (Novolog) 0 unit SC ACHS JOSSIE PRN Reason: Protocol Last Admin: 06/07/18 07:30 Dose: Not Given Lactobacillus Acidophilus (Bacid Acidophilus) 1 cap PO BID [facility] Last Admin: 06/07/18 10:45 Dose: Not Given Methylprednisolone (Solu-Medrol) 125 mg IVP ONCE PRN PRN Reason: Allergy symptoms Morphine Sulfate (Morphine) 6 mg IVP Q4H PRN PRN Reason: Pain, severe (8-10) Last Admin: 06/07/18 09:28 Dose: 6 mg Ondansetron HCl (Zofran Tab) 4 mg PO DAILY [facility] Last Admin: 06/07/18 10:45 Dose: Not Given Pantoprazole Sodium (Protonix Ec Tab) 40 mg PO DAILY [facility] Last Admin: 06/07/18 10:45 Dose: Not Given Rosuvastatin Calcium (Crestor) 10 mg PO HS [facility] Last Admin: 06/06/18 21:51 Dose: 10 mg Sevelamer Carbonate (Renvela) 2.4 gm PO TIDCC [facility] Last Admin: 06/07/18 08:32 Dose: 2.4 gm Tramadol HCl (Ultram) 50 mg PO Q8H PRN PRN Reason: Pain, moderate (4-7) - Labs Labs: 06/07/18 09:32 06/07/18 09:32 PT 12.3 SECONDS (9.7-12.2) H 06/01/18 11:06 INR 1.1 06/01/18 11:06 APTT 39 SECONDS (21-34) H 06/01/18 11:06 - Constitutional Appears: No Acute Distress, Chronically Ill - Head Exam Head Exam: ATRAUMATIC, NORMOCEPHALIC - Eye Exam Eye Exam: EOMI, Normal appearance - ENT Exam ENT Exam: Mucous Membranes Moist - Neck Exam Neck Exam: absent: Tenderness - Respiratory Exam Respiratory Exam: Decreased Breath Sounds. absent: Accessory Muscle Use, Respiratory Distress - Cardiovascular Exam Cardiovascular Exam: RRR, +S1, +S2 - GI/Abdominal Exam GI & Abdominal Exam: Soft. absent: Tenderness - Rectal Exam Rectal Exam: Deferred - Extremities Exam Additional comments: LE BILAT LYMPHEDEMA, CHRONIC CHANGES. - Neurological Exam Neurological Exam: Alert, Awake, CN II-XII Intact, Oriented x3 Assessment and Plan (1) COPD exacerbation Status: Acute (2) AV graft thrombosis Status: Acute (3) Bacteremia due to Gram-negative bacteria Status: Acute (4) Cellulitis of right leg Status: Acute (5) ESRD needing dialysis Status: Acute (6) Morbid obesity Status: Acute (7) Anemia Status: Acute (8) Cellulitis Status: Acute (9) Diabetes Status: Acute (10) Hypertension Status: Acute (11) Iron deficiency anemia Status: Acute (12) Lymphedema Status: Acute - Assessment and Plan (Free Text) Assessment: RESP STATUS NO SIG CHANGE., CONT NEB BD., PULM TOILET., CXR REVIEWED., CONT AB . HD IN PROGRESS. PROG POOR. DISCUSSED WITH STAFF AT LENGTH.
--- NOTE | 2018-06-07 14:41 | CP.PCM.PN ---
Subjective - Date & Time of Evaluation Date of Evaluation: 06/07/18 Time of Evaluation: 02:40 - Subjective Subjective: dictated Objective - Vital Signs/Intake and Output Vital Signs (last 24 hours): Temp Pulse Resp BP Pulse Ox 99.1 F 96 H 20 125/75 99 06/07/18 11:00 06/07/18 12:00 06/07/18 11:00 06/07/18 13:30 06/07/18 11:00 Intake and Output: 06/07/18 06/07/18 06:59 18:59 Intake Total 740 Balance 740 - Medications Medications: Current Medications Acetaminophen (Tylenol 325mg Tab) 650 mg PO Q6 PRN PRN Reason: Fever >100.4 F Last Admin: 06/03/18 00:20 Dose: 650 mg Albuterol/Ipratropium (Duoneb 3 Mg/0.5 Mg (3 Ml) Ud) 3 ml INH RQ6 [facility] Last Admin: 06/07/18 01:07 Dose: 3 ml Calcium Acetate (Phoslo) 667 mg PO TID [facility] Last Admin: 06/07/18 10:45 Dose: Not Given Docusate Sodium (Colace) 100 mg PO BID [facility] Last Admin: 06/07/18 10:45 Dose: Not Given Epoetin Ventura (Procrit) 10,000 unit IV TTS [facility] Last Admin: 06/07/18 14:26 Dose: 10,000 unit Ferric Sodium Gluconate Complex (Ferrlecit) 125 mg IVPB DAILY [facility] Stop: 06/10/18 10:01 Last Admin: 06/07/18 09:23 Dose: 125 mg Furosemide (Lasix) 40 mg PO DAILY [facility] Last Admin: 06/07/18 10:45 Dose: Not Given Guaifenesin (Robitussin) 100 mg PO QID [facility] Last Admin: 06/07/18 10:45 Dose: Not Given Meropenem 500 mg/ Sodium (Chloride) 100 mls @ 100 mls/hr IVPB Q12 JOSSIE PRN Reason: Protocol Last Admin: 06/07/18 10:45 Dose: Not Given Vancomycin/Sodium Chloride (Vancomycin 1 Gm/Ns 200 Ml) 1 gm in 200 mls @ 133.333 mls/hr IVPB TTS JOSSIE PRN Reason: Protocol Stop: 06/09/18 10:01 Last Admin: 06/07/18 10:45 Dose: Not Given Ciprofloxacin (Cipro 400mg/200ml Dsw) 400 mg in 200 mls @ 133 mls/hr IVPB Q24H JOSSIE PRN Reason: Protocol Last Admin: 06/06/18 14:03 Dose: 133 mls/hr Insulin Aspart (Novolog) 0 unit SC ACHS JOSSIE PRN Reason: Protocol Last Admin: 06/07/18 11:47 Dose: Not Given Lactobacillus Acidophilus (Bacid Acidophilus) 1 cap PO BID [facility] Last Admin: 06/07/18 10:45 Dose: Not Given Methylprednisolone (Solu-Medrol) 125 mg IVP ONCE PRN PRN Reason: Allergy symptoms Morphine Sulfate (Morphine) 6 mg IVP Q4H PRN PRN Reason: Pain, severe (8-10) Last Admin: 06/07/18 09:28 Dose: 6 mg Ondansetron HCl (Zofran Tab) 4 mg PO DAILY [facility] Last Admin: 06/07/18 10:45 Dose: Not Given Pantoprazole Sodium (Protonix Ec Tab) 40 mg PO DAILY [facility] Last Admin: 06/07/18 10:45 Dose: Not Given Rosuvastatin Calcium (Crestor) 10 mg PO HS [facility] Last Admin: 06/06/18 21:51 Dose: 10 mg Sevelamer Carbonate (Renvela) 2.4 gm PO TIDCC [facility] Last Admin: 06/07/18 13:59 Dose: Not Given Tramadol HCl (Ultram) 50 mg PO Q8H PRN PRN Reason: Pain, moderate (4-7) - Labs Labs: 06/07/18 09:32 06/07/18 09:32 PT 12.3 SECONDS (9.7-12.2) H 06/01/18 11:06 INR 1.1 06/01/18 11:06 APTT 39 SECONDS (21-34) H 06/01/18 11:06
[2018-06-07] MEDS: Ciprofloxacin 400mg/200ml D5W 400 MG/200 ML BAG IVPB SCH (16:32)
[2018-06-08] MEDS: Albuterol-Ipratrop 3 mg / 0.5 (3 ml) UD INH SCH ×3 (01:35→19:58)
[2018-06-08] MEDS: Morphine 4 MG/ML VIAL IVP PRN ×3 (02:25→11:39)
--- NOTE | 2018-06-08 02:45 | PN ---
DATE: 06/07/2018 SUBJECTIVE: The patient is afebrile. He was getting dialysis done. The nurse called me that his CBC came down with lot of bandemia. The patient was drowsy but arousable. OBJECTIVE: VITAL SIGNS: T-max is 98.5, pulse of 101, respirations were 22 to 24. HEENT: Head is atraumatic. NECK: Supple. LUNGS: Have decreased breath sounds bilaterally. HEART: S1, S2 is regular. ABDOMEN: Soft, nontender. EXTREMITIES: There did not appear any warmth but have bilateral elephantiasis and dry skin, no redness noted. White count is 16.8, hemoglobin 8.2, hematocrit 25.3, platelet count is 288. Chemistry showed sodium 139, potassium 5.5, chlorides are 95, and BUN is 75. Creatinine remains at 10.2, alk phos is 213. Since his test showed bandemia, I gave him extra dose of gentamicin. His blood cultures are already done, on dialysis today, so we will evaluate that. He did come in with Acinetobacter haemolyticus, and he also has clotted left arm fistula which needs as he is getting antibiotics, but once his cultures are negative, then probably they will work on fixing the fistula site, but at this time, he is septic and with bacteremia, etiology seems to be the skin infection, but it could be the fistula also. Alec Boucher MD
[2018-06-08] MEDS: (Novolog) Insulin Aspart, Recombinant 100 u/ml 10 ml vial SC SCH ×4 (08:10→22:07)
[2018-06-08] MEDS: Sevelamer Carb 2.4 gm/Packet PO SCH ×4 (09:15→18:07)
[2018-06-08] MEDS: Pantoprazole 40 mg EC Tab PO SCH (11:26)
[2018-06-08] MEDS: guaiFENesin 100 mg/5 ml Syrup UD PO SCH ×4 (11:26→22:00)
[2018-06-08] MEDS: Lactobacillus Acidophilus 500 MU Cap PO SCH ×2 (11:27→18:07)
[2018-06-08] MEDS: Meropenem 500 MG in Sodium Chloride 0.9% 100 ML IVPB SCH ×2 (11:39→22:01)
[2018-06-08 11:51] LABS: ALB/GLOB RATIO 0.8 (1.0-2.1); CALCIUM 8.3 mg/dl (8.6-10.4)
--- NOTE | 2018-06-08 11:58 | CP.PCM.PN ---
Subjective - Date & Time of Evaluation Date of Evaluation: 06/08/18 Time of Evaluation: 11:56 - Subjective Subjective: PT AWAKE, NO DISTRESS. NO COUGH. ROS ; OTHERWISE NEG Objective - Vital Signs/Intake and Output Vital Signs (last 24 hours): Temp Pulse Resp BP Pulse Ox 98.6 F 112 H 20 111/59 L 96 06/08/18 07:00 06/08/18 07:00 06/08/18 07:00 06/08/18 11:26 06/08/18 07:00 Intake and Output: 06/08/18 06/08/18 06:59 18:59 Intake Total 1100 Balance 1100 - Medications Medications: Current Medications Acetaminophen (Tylenol 325mg Tab) 650 mg PO Q6 PRN PRN Reason: Fever >100.4 F Last Admin: 06/03/18 00:20 Dose: 650 mg Albuterol/Ipratropium (Duoneb 3 Mg/0.5 Mg (3 Ml) Ud) 3 ml INH RQ6 [facility] Last Admin: 06/08/18 07:45 Dose: 3 ml Calcium Acetate (Phoslo) 667 mg PO TID [facility] Last Admin: 06/08/18 11:28 Dose: 667 mg Docusate Sodium (Colace) 100 mg PO BID [facility] Last Admin: 06/08/18 11:26 Dose: 100 mg Epoetin Ventura (Procrit) 10,000 unit IV TTS [facility] Last Admin: 06/07/18 14:26 Dose: 10,000 unit Ferric Sodium Gluconate Complex (Ferrlecit) 125 mg IVPB DAILY [facility] Stop: 06/10/18 10:01 Last Admin: 06/07/18 09:23 Dose: 125 mg Furosemide (Lasix) 40 mg PO DAILY [facility] Last Admin: 06/08/18 11:26 Dose: 40 mg Guaifenesin (Robitussin) 100 mg PO QID [facility] Last Admin: 06/08/18 11:26 Dose: 100 mg Meropenem 500 mg/ Sodium (Chloride) 100 mls @ 100 mls/hr IVPB Q12 JOSSIE PRN Reason: Protocol Last Admin: 06/08/18 11:39 Dose: 100 mls/hr Vancomycin/Sodium Chloride (Vancomycin 1 Gm/Ns 200 Ml) 1 gm in 200 mls @ 133.333 mls/hr IVPB TTS JOSSIE PRN Reason: Protocol Stop: 06/09/18 10:01 Last Admin: 06/07/18 16:31 Dose: 133.333 mls/hr Ciprofloxacin (Cipro 400mg/200ml Dsw) 400 mg in 200 mls @ 133 mls/hr IVPB Q24H JOSSIE PRN Reason: Protocol Last Admin: 06/07/18 16:32 Dose: 133 mls/hr Insulin Aspart (Novolog) 0 unit SC ACHS JOSSIE PRN Reason: Protocol Last Admin: 06/08/18 08:10 Dose: Not Given Lactobacillus Acidophilus (Bacid Acidophilus) 1 cap PO BID [facility] Last Admin: 06/08/18 11:27 Dose: 1 cap Methylprednisolone (Solu-Medrol) 125 mg IVP ONCE PRN PRN Reason: Allergy symptoms Morphine Sulfate (Morphine) 6 mg IVP Q4H PRN PRN Reason: Pain, severe (8-10) Last Admin: 06/08/18 11:39 Dose: 6 mg Ondansetron HCl (Zofran Tab) 4 mg PO DAILY [facility] Last Admin: 06/08/18 11:40 Dose: Not Given Pantoprazole Sodium (Protonix Ec Tab) 40 mg PO DAILY [facility] Last Admin: 06/08/18 11:26 Dose: 40 mg Rosuvastatin Calcium (Crestor) 10 mg PO HS [facility] Last Admin: 06/07/18 22:06 Dose: 10 mg Sevelamer Carbonate (Renvela) 2.4 gm PO TIDCC [facility] Last Admin: 06/08/18 09:25 Dose: Not Given Tramadol HCl (Ultram) 50 mg PO Q8H PRN PRN Reason: Pain, moderate (4-7) - Labs Labs: 06/07/18 09:32 06/08/18 11:21 PT 12.3 SECONDS (9.7-12.2) H 06/01/18 11:06 INR 1.1 06/01/18 11:06 APTT 39 SECONDS (21-34) H 06/01/18 11:06 - Constitutional Appears: No Acute Distress, Chronically Ill - Head Exam Head Exam: ATRAUMATIC, NORMOCEPHALIC - Eye Exam Eye Exam: EOMI, Normal appearance - ENT Exam ENT Exam: Mucous Membranes Moist - Neck Exam Neck Exam: Normal Inspection - Respiratory Exam Respiratory Exam: Decreased Breath Sounds. absent: Accessory Muscle Use - Cardiovascular Exam Cardiovascular Exam: RRR, +S1, +S2 - GI/Abdominal Exam GI & Abdominal Exam: Soft Additional comments: OBESE - Rectal Exam Rectal Exam: Deferred - Extremities Exam Additional comments: BILAT LYMPHEDEMA, CHRONIC CHANGES. - Back Exam Back Exam: absent: CVA tenderness (L), CVA tenderness (R) - Neurological Exam Neurological Exam: Alert, Awake, CN II-XII Intact, Oriented x3 - Psychiatric Exam Psychiatric exam: Normal Mood - Skin Skin Exam: absent: Rash Assessment and Plan (1) COPD exacerbation Status: Acute (2) AV graft thrombosis Status: Acute (3) Bacteremia due to Gram-negative bacteria Status: Acute (4) Cellulitis of right leg Status: Acute (5) ESRD needing dialysis Status: Acute (6) Morbid obesity Status: Acute (7) Anemia Status: Acute (8) Cellulitis Status: Acute (9) Diabetes Status: Acute (10) Hypertension Status: Acute (11) Iron deficiency anemia Status: Acute (12) Lymphedema Status: Acute - Assessment and Plan (Free Text) Assessment: RESP STATUS NO SIG CHANGE., CONT PULM TOILET., NEB BD. MONITOR O2 SAT. CXR REVIEWED., CONT IV AB PER ID., S/P HD YESTERDAY. PROG POOR. DISCUSSED WITH STAFF AT LENGTH.
[2018-06-08] MEDS ORDERED: Dextrose 50% SYRINGE Inj (50 ml) IV STA (12:48)
--- NOTE | 2018-06-08 12:58 | CARD ---
APPROVED REPORT Date of service: 06/01/2018 EKG Measurement Heart [id number] <Conclusion> Sinus tachycardia T wave abnormality, consider lateral ischemia Abnormal ECG
[2018-06-08] MEDS ORDERED: Dextrose 50% VIAL Inj (50 ml) IV ONE (13:05)
[2018-06-08] MEDS: Ciprofloxacin 400mg/200ml D5W 400 MG/200 ML BAG IVPB SCH (13:21)
[2018-06-08] MEDS: Ferric Sodium Gluconat Complex 62.5 mg/5 ml Vial IVPB SCH (13:21)
--- NOTE | 2018-06-08 14:13 | CP.PCM.PN ---
Subjective - Date & Time of Evaluation Date of Evaluation: 06/08/18 Time of Evaluation: 14:11 - Subjective Subjective: alert; upset about possible discharge stable dialysis 06/07 repeat cultures negative; afebrile now Hg sl increase with EPO, IV Fe Objective - Vital Signs/Intake and Output Vital Signs (last 24 hours): Temp Pulse Resp BP Pulse Ox 98.6 F 112 H 20 111/59 L 96 06/08/18 07:00 06/08/18 07:00 06/08/18 07:00 06/08/18 11:26 06/08/18 07:00 Intake and Output: 06/08/18 06/08/18 06:59 18:59 Intake Total 1100 Balance 1100 - Medications Medications: Current Medications Acetaminophen (Tylenol 325mg Tab) 650 mg PO Q6 PRN PRN Reason: Fever >100.4 F Last Admin: 06/03/18 00:20 Dose: 650 mg Albuterol/Ipratropium (Duoneb 3 Mg/0.5 Mg (3 Ml) Ud) 3 ml INH RQ6 [facility] Last Admin: 06/08/18 07:45 Dose: 3 ml Calcium Acetate (Phoslo) 667 mg PO TID [facility] Last Admin: 06/08/18 11:28 Dose: 667 mg Docusate Sodium (Colace) 100 mg PO BID [facility] Last Admin: 06/08/18 11:26 Dose: 100 mg Epoetin Ventura (Procrit) 10,000 unit IV TTS [facility] Last Admin: 06/07/18 14:26 Dose: 10,000 unit Ferric Sodium Gluconate Complex (Ferrlecit) 125 mg IVPB DAILY [facility] Stop: 06/10/18 10:01 Last Admin: 06/08/18 13:21 Dose: Not Given Furosemide (Lasix) 40 mg PO DAILY [facility] Last Admin: 06/08/18 11:26 Dose: 40 mg Guaifenesin (Robitussin) 100 mg PO QID [facility] Last Admin: 06/08/18 11:26 Dose: 100 mg Meropenem 500 mg/ Sodium (Chloride) 100 mls @ 100 mls/hr IVPB Q12 JOSSIE PRN Reason: Protocol Last Admin: 06/08/18 11:39 Dose: 100 mls/hr Vancomycin/Sodium Chloride (Vancomycin 1 Gm/Ns 200 Ml) 1 gm in 200 mls @ 133.333 mls/hr IVPB TTS JOSSIE PRN Reason: Protocol Stop: 06/09/18 10:01 Last Admin: 06/07/18 16:31 Dose: 133.333 mls/hr Ciprofloxacin (Cipro 400mg/200ml Dsw) 400 mg in 200 mls @ 133 mls/hr IVPB Q24H JOSSIE PRN Reason: Protocol Last Admin: 06/08/18 13:21 Dose: Not Given Insulin Aspart (Novolog) 0 unit SC ACHS JOSSIE PRN Reason: Protocol Last Admin: 06/08/18 12:32 Dose: Not Given Lactobacillus Acidophilus (Bacid Acidophilus) 1 cap PO BID [facility] Last Admin: 06/08/18 11:27 Dose: 1 cap Methylprednisolone (Solu-Medrol) 125 mg IVP ONCE PRN PRN Reason: Allergy symptoms Morphine Sulfate (Morphine) 6 mg IVP Q4H PRN PRN Reason: Pain, severe (8-10) Last Admin: 06/08/18 11:39 Dose: 6 mg Ondansetron HCl (Zofran Tab) 4 mg PO DAILY [facility] Last Admin: 06/08/18 11:40 Dose: Not Given Pantoprazole Sodium (Protonix Ec Tab) 40 mg PO DAILY [facility] Last Admin: 06/08/18 11:26 Dose: 40 mg Rosuvastatin Calcium (Crestor) 10 mg PO HS [facility] Last Admin: 06/07/18 22:06 Dose: 10 mg Sevelamer Carbonate (Renvela) 2.4 gm PO TIDCC [facility] Last Admin: 06/08/18 13:10 Dose: Not Given Tramadol HCl (Ultram) 50 mg PO Q8H PRN PRN Reason: Pain, moderate (4-7) - Labs Labs: 06/07/18 09:32 06/08/18 11:21 PT 12.3 SECONDS (9.7-12.2) H 06/01/18 11:06 INR 1.1 06/01/18 11:06 APTT 39 SECONDS (21-34) H 06/01/18 11:06 - Constitutional Appears: No Acute Distress, Chronically Ill - Head Exam Head Exam: ATRAUMATIC, NORMAL INSPECTION - Eye Exam Eye Exam: EOMI, Normal appearance - Neck Exam Neck Exam: Normal Inspection. absent: Tenderness - Respiratory Exam Respiratory Exam: Clear to Ausculation Bilateral, NORMAL BREATHING PATTERN - Cardiovascular Exam Cardiovascular Exam: REGULAR RHYTHM, +S1 - GI/Abdominal Exam GI & Abdominal Exam: Soft. absent: Tenderness - Extremities Exam Extremities Exam: Pedal Edema, Tenderness - Neurological Exam Neurological Exam: Alert, CN II-XII Intact - Skin Skin Exam: Dry, Warm Assessment and Plan (1) End stage renal disease Status: Acute (2) Hypertensive chronic kidney disease with stage 5 chronic kidney disease or end stage renal disease Status: Acute (3) Morbid obesity Status: Acute (4) Lymphedema of lower extremity Status: Chronic (5) AV graft thrombosis Status: Acute (6) Bacteremia due to Gram-negative bacteria Status: Acute (7) Cellulitis of right leg Status: Acute - Assessment and Plan (Free Text) Plan: IV ABs as per ID Dialysis TTS EPO, IV Fe if fevers return or culture positive again would change dialysis catheter
--- NOTE | 2018-06-08 20:38 | CP.PCM.PN ---
Subjective - Date & Time of Evaluation Date of Evaluation: 06/08/18 Time of Evaluation: 08:40 - Subjective Subjective: clinically same Objective - Vital Signs/Intake and Output Vital Signs (last 24 hours): Temp Pulse Resp BP Pulse Ox 98.4 F 73 18 102/62 96 06/08/18 15:58 06/08/18 16:08 06/08/18 15:58 06/08/18 15:58 06/08/18 16:08 - Medications Medications: Current Medications Acetaminophen (Tylenol 325mg Tab) 650 mg PO Q6 PRN PRN Reason: Fever >100.4 F Last Admin: 06/03/18 00:20 Dose: 650 mg Albuterol/Ipratropium (Duoneb 3 Mg/0.5 Mg (3 Ml) Ud) 3 ml INH RQ6 [facility] Last Admin: 06/08/18 19:58 Dose: 3 ml Calcium Acetate (Phoslo) 667 mg PO TID [facility] Last Admin: 06/08/18 18:07 Dose: 667 mg Docusate Sodium (Colace) 100 mg PO BID [facility] Last Admin: 06/08/18 18:07 Dose: 100 mg Epoetin Ventura (Procrit) 10,000 unit IV TTS [facility] Last Admin: 06/07/18 14:26 Dose: 10,000 unit Ferric Sodium Gluconate Complex (Ferrlecit) 125 mg IVPB DAILY [facility] Stop: 06/10/18 10:01 Last Admin: 06/08/18 13:21 Dose: Not Given Furosemide (Lasix) 40 mg PO DAILY [facility] Last Admin: 06/08/18 11:26 Dose: 40 mg Guaifenesin (Robitussin) 100 mg PO QID [facility] Last Admin: 06/08/18 18:09 Dose: 100 mg Meropenem 500 mg/ Sodium (Chloride) 100 mls @ 100 mls/hr IVPB Q12 [facility] PRN Reason: Protocol Last Admin: 06/08/18 11:39 Dose: 100 mls/hr Vancomycin/Sodium Chloride (Vancomycin 1 Gm/Ns 200 Ml) 1 gm in 200 mls @ 133.333 mls/hr IVPB TTS [facility] PRN Reason: Protocol Stop: 06/09/18 10:01 Last Admin: 06/07/18 16:31 Dose: 133.333 mls/hr Ciprofloxacin (Cipro 400mg/200ml Dsw) 400 mg in 200 mls @ 133 mls/hr IVPB Q24H [facility] PRN Reason: Protocol Last Admin: 06/08/18 13:21 Dose: Not Given Insulin Aspart (Novolog) 0 unit SC ACHS [facility] PRN Reason: Protocol Last Admin: 06/08/18 17:04 Dose: Not Given Lactobacillus Acidophilus (Bacid Acidophilus) 1 cap PO BID [facility] Last Admin: 06/08/18 18:07 Dose: 1 cap Methylprednisolone (Solu-Medrol) 125 mg IVP ONCE PRN PRN Reason: Allergy symptoms Morphine Sulfate (Morphine) 6 mg IVP Q4H PRN PRN Reason: Pain, severe (8-10) Last Admin: 06/08/18 11:39 Dose: 6 mg Ondansetron HCl (Zofran Tab) 4 mg PO DAILY [facility] Last Admin: 06/08/18 11:40 Dose: Not Given Pantoprazole Sodium (Protonix Ec Tab) 40 mg PO DAILY [facility] Last Admin: 06/08/18 11:26 Dose: 40 mg Rosuvastatin Calcium (Crestor) 10 mg PO HS [facility] Last Admin: 06/07/18 22:06 Dose: 10 mg Sevelamer Carbonate (Renvela) 2.4 gm PO TIDCC [facility] Last Admin: 06/08/18 18:07 Dose: 2.4 gm Tramadol HCl (Ultram) 50 mg PO Q8H PRN PRN Reason: Pain, moderate (4-7) - Labs Labs: 06/07/18 09:32 06/08/18 11:21 PT 12.3 SECONDS (9.7-12.2) H 06/01/18 11:06 INR 1.1 06/01/18 11:06 APTT 39 SECONDS (21-34) H 06/01/18 11:06 - Constitutional Appears: Well - Head Exam Head Exam: ATRAUMATIC, NORMAL INSPECTION, NORMOCEPHALIC - Eye Exam Eye Exam: EOMI, Normal appearance, PERRL Pupil Exam: NORMAL ACCOMODATION, PERRL - ENT Exam ENT Exam: Mucous Membranes Moist, Normal Exam - Neck Exam Neck Exam: Full ROM, Normal Inspection. absent: Lymphadenopathy - Respiratory Exam Respiratory Exam: Decreased Breath Sounds - Cardiovascular Exam Cardiovascular Exam: REGULAR RHYTHM, +S1, +S2 - GI/Abdominal Exam GI & Abdominal Exam: Soft, Diminished Bowel Sounds - Rectal Exam Rectal Exam: Deferred
[2018-06-09] MEDS: Morphine 4 MG/ML VIAL IVP PRN (00:26)
[2018-06-09] MEDS: Albuterol-Ipratrop 3 mg / 0.5 (3 ml) UD INH SCH ×4 (02:11→22:11)
--- NOTE | 2018-06-09 03:10 | PN ---
DATE: 06/08/2018 SUBJECTIVE: He is arousable but he falls asleep while talking. He is morbidly obese. He denies any complaints today. PHYSICAL EXAMINATION: VITAL SIGNS: T-max is 98.4, heart rate of 105, blood pressure 102/62, and respirations are 18. HEENT: Head is atraumatic. NECK: Supple. LUNGS: Decreased breath sounds bilaterally. HEART: S1, S2 are regular. ABDOMEN: Flabby, nontender. EXTREMITIES: Remain with elephantiasis. No redness present now on the thigh but pelvic area, I am not sure of. I was unable to examine much. LABORATORY DATA: White count is 16.8, hemoglobin is 8.2, hematocrit is 25.3, platelet count is 288. This is from yesterday. So, we will repeat the labs tomorrow. Micro bhatti, he did have Acinetobacter, and the culture from yesterday is negative 24 hours. ASSESSMENT AND PLAN: The problem with this Acinetobacter is that if his cultures remain negative, he needs to get meropenem at least for two weeks total from the time we started. Merrem was started on 06/02/2018. So, he did receive for seven days meropenem. I think he should get meropenem for another seven days along with Cipro which could probably be given p.o., but Merrem needs to be given intravenously. So, I am assuming at this time that this Acinetobacter was due to the cellulitis in the groin or pelvic area, but he also has a clotted fistula which could be the source. So once he is done with two weeks if he continues to have and at this time the culture is negative and we have a new dialysis catheter that we are using, so to continue that for now. We will follow also to check the echo. Echo report, I have not seen. Echo was done on 06/03/2018. Echo shows moderately reduced left ventricular function and paradoxical septal motion. Post-tricuspid TR tracing cannot estimate PA pressure. Otherwise normal Dopplers. So, there is no mention of any vegetation. We will follow, and to continue Merrem and Cipro at this time. The patient came with sepsis, septic shock. Alec Boucher MD [facility] # [id number]
[2018-06-09] MEDS: (Novolog) Insulin Aspart, Recombinant 100 u/ml 10 ml vial SC SCH ×4 (06:41→21:32)
[2018-06-09] MEDS: Sevelamer Carb 2.4 gm/Packet PO SCH ×3 (09:00→17:45)
[2018-06-09] MEDS: Meropenem 500 MG in Sodium Chloride 0.9% 100 ML IVPB SCH ×2 (10:13→21:31)
[2018-06-09] MEDS: Vancomycin 1 gm/NS 200 ml 1 GM/200 ML BAG IVPB SCH (10:14)
[2018-06-09] MEDS: Lactobacillus Acidophilus 500 MU Cap PO SCH ×2 (10:30→17:45)
[2018-06-09] MEDS: Pantoprazole 40 mg EC Tab PO SCH (10:32)
[2018-06-09] MEDS: guaiFENesin 100 mg/5 ml Syrup UD PO SCH ×4 (10:33→21:35)
[2018-06-09 11:15] LABS: BASO # 0.1 K/uL (0.0-0.2); BASO % 0.2 % (0.0-2.0); EOS # 0.2 K/uL (0.0-0.7); EOS % 0.9 % (0.0-4.0); HEMOGLOBIN 7.7 g/dL (12.0-18.0); LYMPH # 0.3 K/uL (1.0-4.3); LYMPH % 1.3 % (20.0-40.0); MEAN CORPUSCULAR HEMOGLOBIN 23.9 pg (27.0-31.0); MEAN CORPUSCULAR HGB CONC 31.4 g/dL (33.0-37.0); MEAN PLATELET VOLUME 7.9 fL (7.2-11.7); MONO # 1.3 K/uL (0.0-0.8); MONO % 5.4 % (0.0-10.0); NEUT # 22.6 K/uL (1.8-7.0); NEUT % 92.2 % (50.0-75.0); NRBC % 0.1 % (0.0-2.0); PLATELET COUNT 289 K/uL (130-400); RBC 3.22 Mil/uL (4.40-5.90); WHITE BLOOD COUNT 24.6 K/uL (4.8-10.8)
[2018-06-09] MEDS: Epoetin Alfa 10,000 unit/ml Dialysis IV SCH (11:18)
[2018-06-09] MEDS: Ferric Sodium Gluconat Complex 62.5 mg/5 ml Vial IVPB SCH (11:19)
--- NOTE | 2018-06-09 11:25 | CP.PCM.PN ---
Subjective - Date & Time of Evaluation Date of Evaluation: 06/09/18 Time of Evaluation: 11:22 - Subjective Subjective: seen at dialysis trying to UF 2500ml- BP low though Hg low- needs IV Fe- was refusing this explained to pt need for IV Fe Objective - Vital Signs/Intake and Output Vital Signs (last 24 hours): Temp Pulse Resp BP Pulse Ox 98.6 F 103 H 20 114/75 97 06/09/18 07:00 06/09/18 07:00 06/09/18 07:00 06/09/18 07:00 06/09/18 07:00 - Medications Medications: Current Medications Acetaminophen (Tylenol 325mg Tab) 650 mg PO Q6 PRN PRN Reason: Fever >100.4 F Last Admin: 06/03/18 00:20 Dose: 650 mg Albuterol/Ipratropium (Duoneb 3 Mg/0.5 Mg (3 Ml) Ud) 3 ml INH RQ6 [facility] Last Admin: 06/09/18 07:50 Dose: 3 ml Calcium Acetate (Phoslo) 667 mg PO TID [facility] Last Admin: 06/09/18 10:32 Dose: Not Given Docusate Sodium (Colace) 100 mg PO BID [facility] Last Admin: 06/09/18 10:32 Dose: Not Given Epoetin Ventura (Procrit) 10,000 unit IV TTS [facility] Last Admin: 06/09/18 11:18 Dose: 10,000 unit Ferric Sodium Gluconate Complex (Ferrlecit) 125 mg IVPB DAILY [facility] Stop: 06/10/18 10:01 Last Admin: 06/09/18 11:19 Dose: 125 mg Furosemide (Lasix) 40 mg PO DAILY [facility] Last Admin: 06/08/18 11:26 Dose: 40 mg Guaifenesin (Robitussin) 100 mg PO QID [facility] Last Admin: 06/09/18 10:33 Dose: Not Given Meropenem 500 mg/ Sodium (Chloride) 100 mls @ 100 mls/hr IVPB Q12 [facility] PRN Reason: Protocol Last Admin: 06/08/18 22:01 Dose: 100 mls/hr Ciprofloxacin (Cipro 400mg/200ml Dsw) 400 mg in 200 mls @ 133 mls/hr IVPB Q24H [facility] PRN Reason: Protocol Last Admin: 06/08/18 13:21 Dose: Not Given Insulin Aspart (Novolog) 0 unit SC ACHS [facility] PRN Reason: Protocol Last Admin: 06/09/18 06:41 Dose: Not Given Lactobacillus Acidophilus (Bacid Acidophilus) 1 cap PO BID [facility] Last Admin: 06/09/18 10:30 Dose: Not Given Methylprednisolone (Solu-Medrol) 125 mg IVP ONCE PRN PRN Reason: Allergy symptoms Morphine Sulfate (Morphine) 6 mg IVP Q4H PRN PRN Reason: Pain, severe (8-10) Last Admin: 06/09/18 00:26 Dose: 6 mg Ondansetron HCl (Zofran Tab) 4 mg PO DAILY [facility] Last Admin: 06/09/18 10:33 Dose: Not Given Pantoprazole Sodium (Protonix Ec Tab) 40 mg PO DAILY [facility] Last Admin: 06/09/18 10:32 Dose: Not Given Rosuvastatin Calcium (Crestor) 10 mg PO HS [facility] Last Admin: 06/08/18 22:00 Dose: 10 mg Sevelamer Carbonate (Renvela) 2.4 gm PO TIDCC [facility] Last Admin: 06/09/18 09:00 Dose: Not Given Tramadol HCl (Ultram) 50 mg PO Q8H PRN PRN Reason: Pain, moderate (4-7) - Labs Labs: 06/09/18 11:12 06/08/18 11:21 PT 12.3 SECONDS (9.7-12.2) H 06/01/18 11:06 INR 1.1 06/01/18 11:06 APTT 39 SECONDS (21-34) H 06/01/18 11:06 - Constitutional Appears: Non-toxic, Chronically Ill - Head Exam Head Exam: ATRAUMATIC, NORMAL INSPECTION - Eye Exam Eye Exam: EOMI, Normal appearance - Neck Exam Neck Exam: Normal Inspection. absent: Tenderness - Respiratory Exam Respiratory Exam: Rhonchi, NORMAL BREATHING PATTERN - Cardiovascular Exam Cardiovascular Exam: REGULAR RHYTHM, +S1 - GI/Abdominal Exam GI & Abdominal Exam: Soft. absent: Tenderness - Extremities Exam Extremities Exam: Pedal Edema. absent: Tenderness - Neurological Exam Neurological Exam: Awake, CN II-XII Intact - Skin Skin Exam: Dry, Warm Assessment and Plan (1) End stage renal disease Status: Acute (2) Hypertensive chronic kidney disease with stage 5 chronic kidney disease or end stage renal disease Status: Acute (3) Morbid obesity Status: Acute (4) Lymphedema of lower extremity Status: Chronic (5) AV graft thrombosis Status: Acute (6) Bacteremia due to Gram-negative bacteria Status: Acute (7) Cellulitis of right leg Status: Acute - Assessment and Plan (Free Text) Plan: dialysis now , TTS , try to increase UF goal ESAs, IV Fe treat bacteremia if fevers recur would change dialysis cath
[2018-06-09 11:34] LABS: ALB/GLOB RATIO 0.8 (1.0-2.1); ALBUMIN 3.1 g/dL (3.5-5.0); CALCIUM 8.2 mg/dl (8.6-10.4)
--- NOTE | 2018-06-09 11:42 | CP.PCM.PN ---
Subjective - Date & Time of Evaluation Date of Evaluation: 06/09/18 Time of Evaluation: 11:39 - Subjective Subjective: PT ALERT, NO COUGH., WEAK. ROS ; OTHERWISE NEG. Objective - Vital Signs/Intake and Output Vital Signs (last 24 hours): Temp Pulse Resp BP Pulse Ox 98.6 F 103 H 20 114/75 97 06/09/18 07:00 06/09/18 07:00 06/09/18 10:55 06/09/18 07:00 06/09/18 07:00 - Medications Medications: Current Medications Acetaminophen (Tylenol 325mg Tab) 650 mg PO Q6 PRN PRN Reason: Fever >100.4 F Last Admin: 06/03/18 00:20 Dose: 650 mg Albuterol/Ipratropium (Duoneb 3 Mg/0.5 Mg (3 Ml) Ud) 3 ml INH RQ6 [facility] Last Admin: 06/09/18 07:50 Dose: 3 ml Calcium Acetate (Phoslo) 667 mg PO TID [facility] Last Admin: 06/09/18 10:32 Dose: Not Given Docusate Sodium (Colace) 100 mg PO BID [facility] Last Admin: 06/09/18 10:32 Dose: Not Given Epoetin Ventura (Procrit) 10,000 unit IV TTS [facility] Last Admin: 06/09/18 11:18 Dose: 10,000 unit Ferric Sodium Gluconate Complex (Ferrlecit) 125 mg IVPB DAILY [facility] Stop: 06/10/18 10:01 Last Admin: 06/09/18 11:19 Dose: 125 mg Furosemide (Lasix) 40 mg PO DAILY [facility] Last Admin: 06/08/18 11:26 Dose: 40 mg Guaifenesin (Robitussin) 100 mg PO QID [facility] Last Admin: 06/09/18 10:33 Dose: Not Given Meropenem 500 mg/ Sodium (Chloride) 100 mls @ 100 mls/hr IVPB Q12 [facility] PRN Reason: Protocol Last Admin: 06/08/18 22:01 Dose: 100 mls/hr Ciprofloxacin (Cipro 400mg/200ml Dsw) 400 mg in 200 mls @ 133 mls/hr IVPB Q24H [facility] PRN Reason: Protocol Last Admin: 06/08/18 13:21 Dose: Not Given Insulin Aspart (Novolog) 0 unit SC ACHS [facility] PRN Reason: Protocol Last Admin: 06/09/18 06:41 Dose: Not Given Lactobacillus Acidophilus (Bacid Acidophilus) 1 cap PO BID [facility] Last Admin: 06/09/18 10:30 Dose: Not Given Methylprednisolone (Solu-Medrol) 125 mg IVP ONCE PRN PRN Reason: Allergy symptoms Morphine Sulfate (Morphine) 6 mg IVP Q4H PRN PRN Reason: Pain, severe (8-10) Last Admin: 06/09/18 00:26 Dose: 6 mg Ondansetron HCl (Zofran Tab) 4 mg PO DAILY [facility] Last Admin: 06/09/18 10:33 Dose: Not Given Pantoprazole Sodium (Protonix Ec Tab) 40 mg PO DAILY [facility] Last Admin: 06/09/18 10:32 Dose: Not Given Rosuvastatin Calcium (Crestor) 10 mg PO HS [facility] Last Admin: 06/08/18 22:00 Dose: 10 mg Sevelamer Carbonate (Renvela) 2.4 gm PO TIDCC [facility] Last Admin: 06/09/18 09:00 Dose: Not Given Tramadol HCl (Ultram) 50 mg PO Q8H PRN PRN Reason: Pain, moderate (4-7) - Labs Labs: 06/09/18 11:12 06/09/18 11:12 PT 12.3 SECONDS (9.7-12.2) H 06/01/18 11:06 INR 1.1 06/01/18 11:06 APTT 39 SECONDS (21-34) H 06/01/18 11:06 - Constitutional Appears: No Acute Distress, Chronically Ill - Head Exam Head Exam: ATRAUMATIC, NORMOCEPHALIC - Eye Exam Eye Exam: EOMI, Normal appearance - ENT Exam ENT Exam: Mucous Membranes Moist - Respiratory Exam Respiratory Exam: Decreased Breath Sounds. absent: Accessory Muscle Use, Respiratory Distress - Cardiovascular Exam Cardiovascular Exam: RRR, +S1, +S2 - GI/Abdominal Exam GI & Abdominal Exam: Soft Additional comments: OBESE - Rectal Exam Rectal Exam: Deferred - Extremities Exam Additional comments: BILAT LYMPHEDEMA +CHRONIC CHANGES - Back Exam Back Exam: absent: CVA tenderness (L), CVA tenderness (R) - Neurological Exam Neurological Exam: Alert, Awake, CN II-XII Intact, Oriented x3 - Psychiatric Exam Psychiatric exam: Normal Affect - Skin Skin Exam: absent: Rash Assessment and Plan (1) COPD exacerbation Status: Acute (2) AV graft thrombosis Status: Acute (3) Bacteremia due to Gram-negative bacteria Status: Acute (4) Cellulitis of right leg Status: Acute (5) ESRD needing dialysis Status: Acute (6) Morbid obesity Status: Acute (7) Anemia Status: Acute (8) Cellulitis Status: Acute (9) Diabetes Status: Acute (10) Hypertension Status: Acute (11) Iron deficiency anemia Status: Acute (12) Lymphedema Status: Acute - Assessment and Plan (Free Text) Assessment: RESP STATUS NO SIG CHANGE. CONT NEB BD. PULM TOILET., MONITOR O2 SAT. CXR REVIEWED. CONT IV AB PER ID., HD IN PROGRESS. MONITOR H/H. PROG POOR., DISCUSSED WITH STAFF AND RENAL.
[2018-06-09 11:59] LABS: TOTAL CELLS COUNTED 100
[2018-06-09 12:03] LABS: ANISOCYTOSIS MODERATE; BANDS 10 % (0-2); HYPOCHROMIC MODERATE; LYMPHOCYTE 4 % (20-40); MONOCYTE 1 % (0-10); NEUTROPHIL 85 % (50-75); NUCLEATED RED BLOOD CELL 1 % (0-0); PLATELET ESTIMATE NORMAL (NORMAL); POIKILOCYTOSIS SLIGHT; TARGET CELLS SLIGHT
[2018-06-09] MEDS ORDERED: Albumin Human 25% (12.5 gm/50 ml) IV ONE (12:25)
--- NOTE | 2018-06-09 13:54 | CP.PCM.PN ---
Subjective - Date & Time of Evaluation Date of Evaluation: 06/09/18 Time of Evaluation: 08:30 - Subjective Subjective: clinically same Objective - Vital Signs/Intake and Output Vital Signs (last 24 hours): Temp Pulse Resp BP Pulse Ox 98 F 103 H 22 131/65 98 06/09/18 10:55 06/09/18 10:55 06/09/18 10:55 06/09/18 11:40 06/09/18 10:55 - Medications Medications: Current Medications Acetaminophen (Tylenol 325mg Tab) 650 mg PO Q6 PRN PRN Reason: Fever >100.4 F Last Admin: 06/03/18 00:20 Dose: 650 mg Albuterol/Ipratropium (Duoneb 3 Mg/0.5 Mg (3 Ml) Ud) 3 ml INH RQ6 [facility] Last Admin: 06/09/18 07:50 Dose: 3 ml Calcium Acetate (Phoslo) 667 mg PO TID [facility] Last Admin: 06/09/18 10:32 Dose: Not Given Docusate Sodium (Colace) 100 mg PO BID [facility] Last Admin: 06/09/18 10:32 Dose: Not Given Epoetin Ventura (Procrit) 10,000 unit IV TTS [facility] Last Admin: 06/09/18 11:18 Dose: 10,000 unit Ferric Sodium Gluconate Complex (Ferrlecit) 125 mg IVPB DAILY [facility] Stop: 06/10/18 10:01 Last Admin: 06/09/18 11:19 Dose: 125 mg Furosemide (Lasix) 40 mg PO DAILY [facility] Last Admin: 06/09/18 10:00 Dose: Not Given Guaifenesin (Robitussin) 100 mg PO QID [facility] Last Admin: 06/09/18 10:33 Dose: Not Given Meropenem 500 mg/ Sodium (Chloride) 100 mls @ 100 mls/hr IVPB Q12 [facility] PRN Reason: Protocol Last Admin: 06/09/18 10:13 Dose: Not Given Ciprofloxacin (Cipro 400mg/200ml Dsw) 400 mg in 200 mls @ 133 mls/hr IVPB Q24H [facility] PRN Reason: Protocol Last Admin: 06/08/18 13:21 Dose: Not Given Insulin Aspart (Novolog) 0 unit SC ACHS [facility] PRN Reason: Protocol Last Admin: 06/09/18 12:14 Dose: Not Given Lactobacillus Acidophilus (Bacid Acidophilus) 1 cap PO BID [facility] Last Admin: 06/09/18 10:30 Dose: Not Given Methylprednisolone (Solu-Medrol) 125 mg IVP ONCE PRN PRN Reason: Allergy symptoms Morphine Sulfate (Morphine) 6 mg IVP Q4H PRN PRN Reason: Pain, severe (8-10) Last Admin: 06/09/18 00:26 Dose: 6 mg Ondansetron HCl (Zofran Tab) 4 mg PO DAILY [facility] Last Admin: 06/09/18 10:33 Dose: Not Given Pantoprazole Sodium (Protonix Ec Tab) 40 mg PO DAILY [facility] Last Admin: 06/09/18 10:32 Dose: Not Given Rosuvastatin Calcium (Crestor) 10 mg PO HS [facility] Last Admin: 06/08/18 22:00 Dose: 10 mg Sevelamer Carbonate (Renvela) 2.4 gm PO TIDCC [facility] Last Admin: 06/09/18 12:00 Dose: Not Given Tramadol HCl (Ultram) 50 mg PO Q8H PRN PRN Reason: Pain, moderate (4-7) - Labs Labs: 06/09/18 11:12 06/09/18 11:12 PT 12.3 SECONDS (9.7-12.2) H 06/01/18 11:06 INR 1.1 06/01/18 11:06 APTT 39 SECONDS (21-34) H 06/01/18 11:06 - Constitutional Appears: Well - Head Exam Head Exam: ATRAUMATIC, NORMAL INSPECTION, NORMOCEPHALIC - Eye Exam Eye Exam: EOMI, Normal appearance, PERRL Pupil Exam: NORMAL ACCOMODATION, PERRL - ENT Exam ENT Exam: Mucous Membranes Moist, Normal Exam - Neck Exam Neck Exam: Full ROM, Normal Inspection. absent: Lymphadenopathy - Respiratory Exam Respiratory Exam: Decreased Breath Sounds - Cardiovascular Exam Cardiovascular Exam: REGULAR RHYTHM, +S1, +S2 - GI/Abdominal Exam GI & Abdominal Exam: Soft, Diminished Bowel Sounds - Rectal Exam Rectal Exam: Deferred
[2018-06-09] MEDS: Ciprofloxacin 400mg/200ml D5W 400 MG/200 ML BAG IVPB SCH (14:28)
--- NOTE | 2018-06-09 20:50 | CP.PCM.PN ---
Subjective - Date & Time of Evaluation Date of Evaluation: 06/09/18 Time of Evaluation: 03:15 - Subjective Subjective: dictated Objective - Vital Signs/Intake and Output Vital Signs (last 24 hours): Temp Pulse Resp BP Pulse Ox 98.3 F 90 18 102/62 95 06/09/18 20:20 06/09/18 20:20 06/09/18 20:20 06/09/18 20:20 06/09/18 15:54 Intake and Output: 06/09/18 06/10/18 18:59 06:59 Intake Total 400 325 Balance 400 325 - Medications Medications: Current Medications Acetaminophen (Tylenol 325mg Tab) 650 mg PO Q6 PRN PRN Reason: Fever >100.4 F Last Admin: 06/03/18 00:20 Dose: 650 mg Albuterol/Ipratropium (Duoneb 3 Mg/0.5 Mg (3 Ml) Ud) 3 ml INH RQ6 [facility] Last Admin: 06/09/18 20:09 Dose: Not Given Calcium Acetate (Phoslo) 667 mg PO TID [facility] Last Admin: 06/09/18 17:45 Dose: 667 mg Docusate Sodium (Colace) 100 mg PO BID [facility] Last Admin: 06/09/18 17:45 Dose: 100 mg Epoetin Ventura (Procrit) 10,000 unit IV TTS [facility] Last Admin: 06/09/18 11:18 Dose: 10,000 unit Ferric Sodium Gluconate Complex (Ferrlecit) 125 mg IVPB DAILY [facility] Stop: 06/10/18 10:01 Last Admin: 06/09/18 11:19 Dose: 125 mg Furosemide (Lasix) 40 mg PO DAILY [facility] Last Admin: 06/09/18 10:00 Dose: Not Given Guaifenesin (Robitussin) 100 mg PO QID [facility] Last Admin: 06/09/18 17:45 Dose: 100 mg Meropenem 500 mg/ Sodium (Chloride) 100 mls @ 100 mls/hr IVPB Q12 [facility] PRN Reason: Protocol Last Admin: 06/09/18 10:13 Dose: Not Given Ciprofloxacin (Cipro 400mg/200ml Dsw) 400 mg in 200 mls @ 133 mls/hr IVPB Q24H [facility] PRN Reason: Protocol Last Admin: 06/09/18 14:28 Dose: Not Given Insulin Aspart (Novolog) 0 unit SC ACHS [facility] PRN Reason: Protocol Last Admin: 06/09/18 16:49 Dose: Not Given Lactobacillus Acidophilus (Bacid Acidophilus) 1 cap PO BID [facility] Last Admin: 06/09/18 17:45 Dose: 1 cap Methylprednisolone (Solu-Medrol) 125 mg IVP ONCE PRN PRN Reason: Allergy symptoms Morphine Sulfate (Morphine) 6 mg IVP Q4H PRN PRN Reason: Pain, severe (8-10) Last Admin: 06/09/18 00:26 Dose: 6 mg Ondansetron HCl (Zofran Tab) 4 mg PO DAILY [facility] Last Admin: 06/09/18 10:33 Dose: Not Given Pantoprazole Sodium (Protonix Ec Tab) 40 mg PO DAILY [facility] Last Admin: 06/09/18 10:32 Dose: Not Given Rosuvastatin Calcium (Crestor) 10 mg PO HS [facility] Last Admin: 06/08/18 22:00 Dose: 10 mg Sevelamer Carbonate (Renvela) 2.4 gm PO TIDCC [facility] Last Admin: 06/09/18 17:45 Dose: 2.4 gm Tramadol HCl (Ultram) 50 mg PO Q8H PRN PRN Reason: Pain, moderate (4-7) - Labs Labs: 06/09/18 11:12 06/09/18 11:12 PT 12.3 SECONDS (9.7-12.2) H 06/01/18 11:06 INR 1.1 06/01/18 11:06 APTT 39 SECONDS (21-34) H 06/01/18 11:06
--- NOTE | 2018-06-10 01:13 | PN ---
DATE: 06/09/2018 SUBJECTIVE: The patient is afebrile. He is feeling little better, but he needs IV antibiotics as he did have Acinetobacter in two sets, and he has clotted his fistula which will also need repair once he is done with the antibiotics because they inserted a new SG catheter. PHYSICAL EXAMINATION: VITAL SIGNS: T-max is 98.3, pulse is 90, blood pressure is 102/62, respirations are 18. HEENT: Head is atraumatic, normocephalic. NECK: Supple. LUNGS: Clear. HEART: S1, S2 are regular. Decreased breath sounds bilaterally. ABDOMEN: Remains flabby. EXTREMITIES: Remain with elephantiasis. LABORATORY DATA: Labs show his white count went up today 24.6, hemoglobin 7.7, hematocrit 24.5, platelet count is 289. So, he is dropping his hemoglobin also, and the white count increased. Neutrophils are 85, bands are 10 today. Creatinine is 8.9. So, his white count has gone up and hemoglobin is decreasing. ASSESSMENT AND PLAN: I think he is still unstable. Blood cultures from 06/07/2018 are negative. He has Acinetobacter haemolyticus which is sensitive to Merrem as well as to Cipro and since he is dialysis patient, we have him on Cipro. Cipro was not given today, look like. We will have to call the floor to find out why he did not get Cipro or Maxipime today, and he probably will need a line to give these antibiotics while he is a dialysis patient. Otherwise, he is allergic to penicillin but has tolerated the meropenem. We will call the floor to find out. Otherwise, he needs a line to give the antibiotics. We will follow. Alec Boucher MD
[2018-06-10] MEDS: Albuterol-Ipratrop 3 mg / 0.5 (3 ml) UD INH SCH ×4 (02:49→20:01)
[2018-06-10 08:04] LABS: BASO # 0.1 K/uL (0.0-0.2); BASO % 0.3 % (0.0-2.0); EOS # 0.3 K/uL (0.0-0.7); EOS % 1.2 % (0.0-4.0); HEMOGLOBIN 8.5 g/dL (12.0-18.0); LYMPH # 0.8 K/uL (1.0-4.3); LYMPH % 3.2 % (20.0-40.0); MEAN CELL VOLUME 77.4 fL (80.0-94.0); MEAN CORPUSCULAR HEMOGLOBIN 24.9 pg (27.0-31.0); MEAN CORPUSCULAR HGB CONC 32.2 g/dL (33.0-37.0); MEAN PLATELET VOLUME 7.7 fL (7.2-11.7); MONO # 1.6 K/uL (0.0-0.8); MONO % 6.7 % (0.0-10.0); NEUT # 21.9 K/uL (1.8-7.0); NEUT % 88.6 % (50.0-75.0); NRBC % 0.1 % (0.0-2.0); PLATELET COUNT 287 K/uL (130-400); RBC 3.41 Mil/uL (4.40-5.90); WHITE BLOOD COUNT 24.7 K/uL (4.8-10.8)
[2018-06-10] MEDS: (Novolog) Insulin Aspart, Recombinant 100 u/ml 10 ml vial SC SCH ×4 (08:15→21:47)
[2018-06-10 08:20] LABS: ALB/GLOB RATIO 0.8 (1.0-2.1); CALCIUM 8.3 mg/dl (8.6-10.4)
[2018-06-10 09:55] LABS: ANISOCYTOSIS MODERATE; BANDS 2 % (0-2); EOSINOPHIL 1 % (0-4); LYMPHOCYTE 5 % (20-40); MONOCYTE 9 % (0-10); NEUTROPHIL 83 % (50-75); PLATELET ESTIMATE NORMAL (NORMAL); TOTAL CELLS COUNTED 100
[2018-06-10 09:56] LABS: HYPOCHROMIC SLIGHT; POIKILOCYTOSIS SLIGHT; TARGET CELLS SLIGHT
[2018-06-10] MEDS: Pantoprazole 40 mg EC Tab PO SCH (10:43)
[2018-06-10] MEDS: guaiFENesin 100 mg/5 ml Syrup UD PO SCH ×4 (10:43→21:26)
[2018-06-10] MEDS: Ferric Sodium Gluconat Complex 62.5 mg/5 ml Vial IVPB SCH (10:44)
[2018-06-10] MEDS: Lactobacillus Acidophilus 500 MU Cap PO SCH ×2 (10:44→17:47)
[2018-06-10] MEDS: Sevelamer Carb 2.4 gm/Packet PO SCH ×3 (10:44→17:47)
[2018-06-10] MEDS: Meropenem 500 MG in Sodium Chloride 0.9% 100 ML IVPB SCH ×2 (10:44→21:25)
--- NOTE | 2018-06-10 11:58 | CP.PCM.PN ---
Subjective - Date & Time of Evaluation Date of Evaluation: 06/10/18 Time of Evaluation: 11:55 - Subjective Subjective: PT ALERT, FEELS BETTER., LESS SOB., ROS ; OTHERWISE NEG. Objective - Vital Signs/Intake and Output Vital Signs (last 24 hours): Temp Pulse Resp BP Pulse Ox 98 F 96 H 20 117/74 100 06/10/18 08:27 06/10/18 08:27 06/10/18 08:27 06/10/18 10:45 06/10/18 08:27 Intake and Output: 06/10/18 06/10/18 06:59 18:59 Intake Total 850 Balance 850 - Medications Medications: Current Medications Acetaminophen (Tylenol 325mg Tab) 650 mg PO Q6 PRN PRN Reason: Fever >100.4 F Last Admin: 06/03/18 00:20 Dose: 650 mg Albuterol/Ipratropium (Duoneb 3 Mg/0.5 Mg (3 Ml) Ud) 3 ml INH RQ6 [facility] Last Admin: 06/10/18 07:43 Dose: 3 ml Calcium Acetate (Phoslo) 667 mg PO TID [facility] Last Admin: 06/10/18 10:44 Dose: 667 mg Docusate Sodium (Colace) 100 mg PO BID [facility] Last Admin: 06/10/18 10:44 Dose: 100 mg Epoetin Ventura (Procrit) 10,000 unit IV TTS [facility] Last Admin: 06/09/18 11:18 Dose: 10,000 unit Furosemide (Lasix) 40 mg PO DAILY [facility] Last Admin: 06/10/18 10:45 Dose: 40 mg Guaifenesin (Robitussin) 100 mg PO QID [facility] Last Admin: 06/10/18 10:43 Dose: 100 mg Meropenem 500 mg/ Sodium (Chloride) 100 mls @ 100 mls/hr IVPB Q12 JOSSIE PRN Reason: Protocol Last Admin: 06/10/18 10:44 Dose: 100 mls/hr Ciprofloxacin (Cipro 400mg/200ml Dsw) 400 mg in 200 mls @ 133 mls/hr IVPB Q24H JOSSIE PRN Reason: Protocol Last Admin: 06/09/18 14:28 Dose: Not Given Insulin Aspart (Novolog) 0 unit SC ACHS JOSSIE PRN Reason: Protocol Last Admin: 06/10/18 08:15 Dose: Not Given Lactobacillus Acidophilus (Bacid Acidophilus) 1 cap PO BID [facility] Last Admin: 06/10/18 10:44 Dose: 1 cap Methylprednisolone (Solu-Medrol) 125 mg IVP ONCE PRN PRN Reason: Allergy symptoms Morphine Sulfate (Morphine) 6 mg IVP Q4H PRN PRN Reason: Pain, severe (8-10) Last Admin: 06/09/18 00:26 Dose: 6 mg Ondansetron HCl (Zofran Tab) 4 mg PO DAILY [facility] Last Admin: 06/10/18 10:44 Dose: 4 mg Pantoprazole Sodium (Protonix Ec Tab) 40 mg PO DAILY [facility] Last Admin: 06/10/18 10:43 Dose: 40 mg Rosuvastatin Calcium (Crestor) 10 mg PO HS [facility] Last Admin: 06/09/18 21:31 Dose: 10 mg Sevelamer Carbonate (Renvela) 2.4 gm PO TIDCC [facility] Last Admin: 06/10/18 10:44 Dose: 2.4 gm Tramadol HCl (Ultram) 50 mg PO Q8H PRN PRN Reason: Pain, moderate (4-7) - Labs Labs: 06/10/18 07:48 06/10/18 07:48 PT 12.3 SECONDS (9.7-12.2) H 06/01/18 11:06 INR 1.1 06/01/18 11:06 APTT 39 SECONDS (21-34) H 06/01/18 11:06 - Constitutional Appears: No Acute Distress, Chronically Ill - Head Exam Head Exam: ATRAUMATIC, NORMOCEPHALIC - Eye Exam Eye Exam: EOMI, Normal appearance - ENT Exam ENT Exam: Mucous Membranes Dry - Neck Exam Neck Exam: Normal Inspection - Respiratory Exam Respiratory Exam: Decreased Breath Sounds - Cardiovascular Exam Cardiovascular Exam: RRR, +S1, +S2 - GI/Abdominal Exam GI & Abdominal Exam: Soft Additional comments: OBESE - Rectal Exam Rectal Exam: Deferred - Extremities Exam Additional comments: BILAT LYMPHEDEMA LE , CHRONIC CHANGES. - Back Exam Back Exam: absent: CVA tenderness (L), CVA tenderness (R) - Neurological Exam Neurological Exam: Alert, Awake, CN II-XII Intact, Oriented x3 - Psychiatric Exam Psychiatric exam: Normal Mood - Skin Skin Exam: absent: Rash Assessment and Plan (1) COPD exacerbation Status: Acute (2) AV graft thrombosis Status: Acute (3) Bacteremia due to Gram-negative bacteria Status: Acute (4) Cellulitis of right leg Status: Acute (5) ESRD needing dialysis Status: Acute (6) Morbid obesity Status: Acute (7) Anemia Status: Acute (8) Cellulitis Status: Acute (9) Diabetes Status: Acute (10) Hypertension Status: Acute (11) Iron deficiency anemia Status: Acute (12) Lymphedema Status: Acute - Assessment and Plan (Free Text) Assessment: RESP STATUS IMPROVING., CONT PULM TOILET., MONITOR O2 SAT., NEB BD. CXR REVIEWED. CONT IV AB PER ID. HD PER RENAL. PROG POOR. DISCUSSED WITH STAFF AT LENGTH.
--- NOTE | 2018-06-10 12:25 | CP.PCM.PN ---
Subjective - Date & Time of Evaluation Date of Evaluation: 06/10/18 Time of Evaluation: 12:23 - Subjective Subjective: afebrile repeat blood cultures negative on iv cipro per ID denies any n/v/d/f/c/sob/dizziness/cough/headache Objective - Vital Signs/Intake and Output Vital Signs (last 24 hours): Temp Pulse Resp BP Pulse Ox 98 F 96 H 20 117/74 100 06/10/18 08:27 06/10/18 08:27 06/10/18 08:27 06/10/18 10:45 06/10/18 08:27 Intake and Output: 06/10/18 06/10/18 06:59 18:59 Intake Total 850 Balance 850 - Medications Medications: Current Medications Acetaminophen (Tylenol 325mg Tab) 650 mg PO Q6 PRN PRN Reason: Fever >100.4 F Last Admin: 06/03/18 00:20 Dose: 650 mg Albuterol/Ipratropium (Duoneb 3 Mg/0.5 Mg (3 Ml) Ud) 3 ml INH RQ6 [facility] Last Admin: 06/10/18 07:43 Dose: 3 ml Calcium Acetate (Phoslo) 667 mg PO TID [facility] Last Admin: 06/10/18 10:44 Dose: 667 mg Docusate Sodium (Colace) 100 mg PO BID [facility] Last Admin: 06/10/18 10:44 Dose: 100 mg Epoetin Ventura (Procrit) 10,000 unit IV TTS [facility] Last Admin: 06/09/18 11:18 Dose: 10,000 unit Furosemide (Lasix) 40 mg PO DAILY [facility] Last Admin: 06/10/18 10:45 Dose: 40 mg Guaifenesin (Robitussin) 100 mg PO QID [facility] Last Admin: 06/10/18 10:43 Dose: 100 mg Meropenem 500 mg/ Sodium (Chloride) 100 mls @ 100 mls/hr IVPB Q12 JOSSIE PRN Reason: Protocol Last Admin: 06/10/18 10:44 Dose: 100 mls/hr Ciprofloxacin (Cipro 400mg/200ml Dsw) 400 mg in 200 mls @ 133 mls/hr IVPB Q24H JOSSIE PRN Reason: Protocol Last Admin: 06/09/18 14:28 Dose: Not Given Insulin Aspart (Novolog) 0 unit SC ACHS JOSSIE PRN Reason: Protocol Last Admin: 06/10/18 08:15 Dose: Not Given Lactobacillus Acidophilus (Bacid Acidophilus) 1 cap PO BID [facility] Last Admin: 06/10/18 10:44 Dose: 1 cap Methylprednisolone (Solu-Medrol) 125 mg IVP ONCE PRN PRN Reason: Allergy symptoms Morphine Sulfate (Morphine) 6 mg IVP Q4H PRN PRN Reason: Pain, severe (8-10) Last Admin: 06/09/18 00:26 Dose: 6 mg Ondansetron HCl (Zofran Tab) 4 mg PO DAILY [facility] Last Admin: 06/10/18 10:44 Dose: 4 mg Pantoprazole Sodium (Protonix Ec Tab) 40 mg PO DAILY [facility] Last Admin: 06/10/18 10:43 Dose: 40 mg Rosuvastatin Calcium (Crestor) 10 mg PO HS [facility] Last Admin: 06/09/18 21:31 Dose: 10 mg Sevelamer Carbonate (Renvela) 2.4 gm PO TIDCC [facility] Last Admin: 06/10/18 10:44 Dose: 2.4 gm Tramadol HCl (Ultram) 50 mg PO Q8H PRN PRN Reason: Pain, moderate (4-7) - Labs Labs: 06/10/18 07:48 06/10/18 07:48 PT 12.3 SECONDS (9.7-12.2) H 06/01/18 11:06 INR 1.1 06/01/18 11:06 APTT 39 SECONDS (21-34) H 06/01/18 11:06 - Constitutional Appears: No Acute Distress, Chronically Ill - Head Exam Head Exam: NORMAL INSPECTION, NORMOCEPHALIC - Eye Exam Eye Exam: Normal appearance, PERRL - ENT Exam ENT Exam: Mucous Membranes Dry - Neck Exam Neck Exam: Normal Inspection (supple) - Respiratory Exam Respiratory Exam: NORMAL BREATHING PATTERN (b/l air entr) - Cardiovascular Exam Cardiovascular Exam: REGULAR RHYTHM, RRR - GI/Abdominal Exam GI & Abdominal Exam: Distended, Soft - Extremities Exam Extremities Exam: Pedal Edema (b/l stasis) - Neurological Exam Neurological Exam: Alert, Awake, Oriented x3 - Psychiatric Exam Psychiatric exam: Normal Affect, Normal Mood - Skin Skin Exam: Dry, Intact Assessment and Plan (1) AV graft thrombosis Status: Acute (2) Bacteremia due to Gram-negative bacteria Status: Acute (3) Cellulitis of right leg Status: Acute (4) End stage renal disease Status: Acute (5) Hypertensive chronic kidney disease with stage 5 chronic kidney disease or end stage renal disease Status: Acute (6) Morbid obesity Status: Acute - Assessment and Plan (Free Text) Assessment: maintain hd tts poor migue responder due to infection. monitor hgb antibiotic per ID
[2018-06-10] MEDS: Ciprofloxacin 400mg/200ml D5W 400 MG/200 ML BAG IVPB SCH (14:00)
[2018-06-10] MEDS: Morphine 4 MG/ML VIAL IVP PRN (16:02)
--- NOTE | 2018-06-10 17:01 | CP.PCM.PN ---
Subjective - Date & Time of Evaluation Date of Evaluation: 06/10/18 Time of Evaluation: 04:00 - Subjective Subjective: dictated Objective - Vital Signs/Intake and Output Vital Signs (last 24 hours): Temp Pulse Resp BP Pulse Ox 98 F 96 H 20 117/74 100 06/10/18 08:27 06/10/18 08:27 06/10/18 08:27 06/10/18 10:45 06/10/18 08:27 Intake and Output: 06/10/18 06/10/18 06:59 18:59 Intake Total 850 Balance 850 - Medications Medications: Current Medications Acetaminophen (Tylenol 325mg Tab) 650 mg PO Q6 PRN PRN Reason: Fever >100.4 F Last Admin: 06/03/18 00:20 Dose: 650 mg Albuterol/Ipratropium (Duoneb 3 Mg/0.5 Mg (3 Ml) Ud) 3 ml INH RQ6 [facility] Last Admin: 06/10/18 13:46 Dose: 3 ml Calcium Acetate (Phoslo) 667 mg PO TID [facility] Last Admin: 06/10/18 14:24 Dose: 667 mg Docusate Sodium (Colace) 100 mg PO BID [facility] Last Admin: 06/10/18 10:44 Dose: 100 mg Epoetin Ventura (Procrit) 10,000 unit IV TTS [facility] Last Admin: 06/09/18 11:18 Dose: 10,000 unit Ferric Sodium Gluconate Complex (Ferrlecit) 125 mg IVPB DAILY [facility] Stop: 06/19/18 10:01 Furosemide (Lasix) 40 mg PO DAILY [facility] Last Admin: 06/10/18 10:45 Dose: 40 mg Guaifenesin (Robitussin) 100 mg PO QID [facility] Last Admin: 06/10/18 14:24 Dose: 100 mg Meropenem 500 mg/ Sodium (Chloride) 100 mls @ 100 mls/hr IVPB Q12 JOSSIE PRN Reason: Protocol Last Admin: 06/10/18 10:44 Dose: 100 mls/hr Ciprofloxacin (Cipro 400mg/200ml Dsw) 400 mg in 200 mls @ 133 mls/hr IVPB Q24H JOSSIE PRN Reason: Protocol Last Admin: 06/10/18 14:00 Dose: 133 mls/hr Insulin Aspart (Novolog) 0 unit SC ACHS JOSSIE PRN Reason: Protocol Last Admin: 06/10/18 13:15 Dose: Not Given Lactobacillus Acidophilus (Bacid Acidophilus) 1 cap PO BID [facility] Last Admin: 06/10/18 10:44 Dose: 1 cap Methylprednisolone (Solu-Medrol) 125 mg IVP ONCE PRN PRN Reason: Allergy symptoms Morphine Sulfate (Morphine) 6 mg IVP Q4H PRN PRN Reason: Pain, severe (8-10) Last Admin: 06/10/18 16:02 Dose: 6 mg Ondansetron HCl (Zofran Tab) 4 mg PO DAILY [facility] Last Admin: 06/10/18 10:44 Dose: 4 mg Pantoprazole Sodium (Protonix Ec Tab) 40 mg PO DAILY [facility] Last Admin: 06/10/18 10:43 Dose: 40 mg Rosuvastatin Calcium (Crestor) 10 mg PO HS [facility] Last Admin: 06/09/18 21:31 Dose: 10 mg Sevelamer Carbonate (Renvela) 2.4 gm PO TIDCC [facility] Last Admin: 06/10/18 12:16 Dose: Not Given Tramadol HCl (Ultram) 50 mg PO Q8H PRN PRN Reason: Pain, moderate (4-7) Last Admin: 06/10/18 14:31 Dose: 50 mg - Labs Labs: 06/10/18 07:48 06/10/18 07:48 PT 12.3 SECONDS (9.7-12.2) H 06/01/18 11:06 INR 1.1 06/01/18 11:06 APTT 39 SECONDS (21-34) H 06/01/18 11:06
--- NOTE | 2018-06-10 20:33 | CP.PCM.PN ---
Subjective - Date & Time of Evaluation Date of Evaluation: 06/10/18 Time of Evaluation: 09:20 - Subjective Subjective: clinically same Objective - Vital Signs/Intake and Output Vital Signs (last 24 hours): Temp Pulse Resp BP Pulse Ox 97.7 F 93 H 29 H 114/67 98 06/10/18 15:15 06/10/18 15:15 06/10/18 15:15 06/10/18 15:15 06/10/18 15:15 Intake and Output: 06/10/18 06/11/18 18:59 06:59 Intake Total 1300 Output Total 500 Balance 800 - Medications Medications: Current Medications Acetaminophen (Tylenol 325mg Tab) 650 mg PO Q6 PRN PRN Reason: Fever >100.4 F Last Admin: 06/03/18 00:20 Dose: 650 mg Albuterol/Ipratropium (Duoneb 3 Mg/0.5 Mg (3 Ml) Ud) 3 ml INH RQ6 [facility] Last Admin: 06/10/18 20:01 Dose: 3 ml Calcium Acetate (Phoslo) 667 mg PO TID [facility] Last Admin: 06/10/18 17:49 Dose: 667 mg Docusate Sodium (Colace) 100 mg PO BID [facility] Last Admin: 06/10/18 17:47 Dose: 100 mg Epoetin Ventura (Procrit) 10,000 unit IV TTS [facility] Last Admin: 06/09/18 11:18 Dose: 10,000 unit Ferric Sodium Gluconate Complex (Ferrlecit) 125 mg IVPB DAILY [facility] Stop: 06/19/18 10:01 Furosemide (Lasix) 40 mg PO DAILY [facility] Last Admin: 06/10/18 10:45 Dose: 40 mg Guaifenesin (Robitussin) 100 mg PO QID [facility] Last Admin: 06/10/18 17:48 Dose: 100 mg Meropenem 500 mg/ Sodium (Chloride) 100 mls @ 100 mls/hr IVPB Q12 JOSSIE PRN Reason: Protocol Last Admin: 06/10/18 10:44 Dose: 100 mls/hr Ciprofloxacin (Cipro 400mg/200ml Dsw) 400 mg in 200 mls @ 133 mls/hr IVPB Q24H JOSSIE PRN Reason: Protocol Last Admin: 06/10/18 14:00 Dose: 133 mls/hr Insulin Aspart (Novolog) 0 unit SC ACHS JOSSIE PRN Reason: Protocol Last Admin: 06/10/18 15:11 Dose: Not Given Lactobacillus Acidophilus (Bacid Acidophilus) 1 cap PO BID [facility] Last Admin: 06/10/18 17:47 Dose: 1 cap Methylprednisolone (Solu-Medrol) 125 mg IVP ONCE PRN PRN Reason: Allergy symptoms Morphine Sulfate (Morphine) 6 mg IVP Q4H PRN PRN Reason: Pain, severe (8-10) Last Admin: 06/10/18 16:02 Dose: 6 mg Ondansetron HCl (Zofran Tab) 4 mg PO DAILY [facility] Last Admin: 06/10/18 10:44 Dose: 4 mg Pantoprazole Sodium (Protonix Ec Tab) 40 mg PO DAILY [facility] Last Admin: 06/10/18 10:43 Dose: 40 mg Rosuvastatin Calcium (Crestor) 10 mg PO HS [facility] Last Admin: 06/09/18 21:31 Dose: 10 mg Sevelamer Carbonate (Renvela) 2.4 gm PO TIDCC [facility] Last Admin: 06/10/18 17:47 Dose: 2.4 gm Tramadol HCl (Ultram) 50 mg PO Q8H PRN PRN Reason: Pain, moderate (4-7) Last Admin: 06/10/18 14:31 Dose: 50 mg - Labs Labs: 06/10/18 07:48 06/10/18 07:48 PT 12.3 SECONDS (9.7-12.2) H 06/01/18 11:06 INR 1.1 06/01/18 11:06 APTT 39 SECONDS (21-34) H 06/01/18 11:06
--- NOTE | 2018-06-10 20:56 | PN ---
DATE: 06/10/2018 SUBJECTIVE: The patient offers no new complaints. His uncle was at the bedside. This patient is getting any better, and I told him that he is getting antibiotics; however, his white count was elevated yesterday. He denies any nausea or vomiting. No diarrhea. He is constipated. Otherwise, he says he is on Colace. PHYSICAL EXAMINATION: VITAL SIGNS: T-max is 98, pulse 96, blood pressure is 106/70, respirations are 20. HEENT: Head is atraumatic, normocephalic. NECK: Supple. LUNGS: Clear. Decreased breath sounds bilaterally. HEART: S1, S2 are regular. ABDOMEN: Flabby, nontender. EXTREMITIES: Remain with chronic lymphedema. Unable to evaluate much, but his white remains high at 24.6, neutrophils are 88.6, hemoglobin 8.5, hematocrit 26.4. BUN is 46, creatinine is 6.6. He is on medications. He is on Cipro IV as well as lactobacillus and meropenem. IMPRESSION AND PLAN: At this time, he is an end-stage renal disease patient, has a clotted shunt, and also had cellulitis when he came in. At this time, the white count remains elevated, but his cultures were negative from 06/07/2018. He is constipated. He did have a bad gram-negative bacteria, Acinetobacter, which from the cellulitis and it could be from the clotted fistula or infected fistula, but we will continue antibiotics. He has been on antibiotics. So, it is 9 days he has been on antibiotics. We will give him five more days of antibiotics; however, I want his white count to come down. He has a new dialysis catheter at this time, which is they are using for dialysis, but I would renew the antibiotics to be continued here. I would repeat the labs again in one to two days. Alec Boucher MD
[2018-06-11] MEDS: Albuterol-Ipratrop 3 mg / 0.5 (3 ml) UD INH SCH ×4 (01:48→19:17)
--- NOTE | 2018-06-11 08:23 | CP.PCM.PN ---
Subjective - Date & Time of Evaluation Date of Evaluation: 06/11/18 Time of Evaluation: 08:15 Objective - Vital Signs/Intake and Output Vital Signs (last 24 hours): Temp Pulse Resp BP Pulse Ox 97.9 F 89 20 126/71 96 06/11/18 07:00 06/11/18 07:00 06/11/18 07:00 06/11/18 07:00 06/11/18 07:00 - Medications Medications: Current Medications Acetaminophen (Tylenol 325mg Tab) 650 mg PO Q6 PRN PRN Reason: Fever >100.4 F Last Admin: 06/03/18 00:20 Dose: 650 mg Albuterol/Ipratropium (Duoneb 3 Mg/0.5 Mg (3 Ml) Ud) 3 ml INH RQ6 [facility] Last Admin: 06/11/18 07:38 Dose: 3 ml Calcium Acetate (Phoslo) 667 mg PO TID [facility] Last Admin: 06/10/18 17:49 Dose: 667 mg Docusate Sodium (Colace) 100 mg PO BID [facility] Last Admin: 06/10/18 17:47 Dose: 100 mg Epoetin Ventura (Procrit) 10,000 unit IV TTS [facility] Last Admin: 06/09/18 11:18 Dose: 10,000 unit Ferric Sodium Gluconate Complex (Ferrlecit) 125 mg IVPB DAILY [facility] Stop: 06/19/18 10:01 Furosemide (Lasix) 40 mg PO DAILY [facility] Last Admin: 06/10/18 10:45 Dose: 40 mg Guaifenesin (Robitussin) 100 mg PO QID [facility] Last Admin: 06/10/18 21:26 Dose: 100 mg Meropenem 500 mg/ Sodium (Chloride) 100 mls @ 100 mls/hr IVPB Q12 JOSSIE PRN Reason: Protocol Last Admin: 06/10/18 21:25 Dose: 100 mls/hr Ciprofloxacin (Cipro 400mg/200ml Dsw) 400 mg in 200 mls @ 133 mls/hr IVPB Q24H JOSSIE PRN Reason: Protocol Last Admin: 06/10/18 14:00 Dose: 133 mls/hr Insulin Aspart (Novolog) 0 unit SC ACHS JOSSIE PRN Reason: Protocol Last Admin: 06/10/18 21:47 Dose: Not Given Lactobacillus Acidophilus (Bacid Acidophilus) 1 cap PO BID [facility] Last Admin: 06/10/18 17:47 Dose: 1 cap Methylprednisolone (Solu-Medrol) 125 mg IVP ONCE PRN PRN Reason: Allergy symptoms Morphine Sulfate (Morphine) 6 mg IVP Q4H PRN PRN Reason: Pain, severe (8-10) Last Admin: 06/10/18 16:02 Dose: 6 mg Ondansetron HCl (Zofran Tab) 4 mg PO DAILY [facility] Last Admin: 06/10/18 10:44 Dose: 4 mg Pantoprazole Sodium (Protonix Ec Tab) 40 mg PO DAILY [facility] Last Admin: 06/10/18 10:43 Dose: 40 mg Rosuvastatin Calcium (Crestor) 10 mg PO HS [facility] Last Admin: 06/10/18 21:26 Dose: 10 mg Sevelamer Carbonate (Renvela) 2.4 gm PO TIDCC [facility] Last Admin: 06/10/18 17:47 Dose: 2.4 gm Tramadol HCl (Ultram) 50 mg PO Q8H PRN PRN Reason: Pain, moderate (4-7) Last Admin: 06/10/18 14:31 Dose: 50 mg - Labs Labs: 06/10/18 07:48 06/10/18 07:48 PT 12.3 SECONDS (9.7-12.2) H 06/01/18 11:06 INR 1.1 06/01/18 11:06 APTT 39 SECONDS (21-34) H 06/01/18 11:06
--- NOTE | 2018-06-11 08:26 | CP.PCM.PN ---
Subjective - Date & Time of Evaluation Date of Evaluation: 06/11/18 Time of Evaluation: 08:30 - Subjective Subjective: appears comfortable in bed states total body pain ROS answers yes to all questions ROS Objective - Vital Signs/Intake and Output Vital Signs (last 24 hours): Temp Pulse Resp BP Pulse Ox 97.9 F 89 20 126/71 96 06/11/18 07:00 06/11/18 07:00 06/11/18 07:00 06/11/18 07:00 06/11/18 07:00 - Medications Medications: Current Medications Acetaminophen (Tylenol 325mg Tab) 650 mg PO Q6 PRN PRN Reason: Fever >100.4 F Last Admin: 06/03/18 00:20 Dose: 650 mg Albuterol/Ipratropium (Duoneb 3 Mg/0.5 Mg (3 Ml) Ud) 3 ml INH RQ6 [facility] Last Admin: 06/11/18 07:38 Dose: 3 ml Calcium Acetate (Phoslo) 667 mg PO TID [facility] Last Admin: 06/10/18 17:49 Dose: 667 mg Docusate Sodium (Colace) 100 mg PO BID [facility] Last Admin: 06/10/18 17:47 Dose: 100 mg Epoetin Venutra (Procrit) 10,000 unit IV TTS [facility] Last Admin: 06/09/18 11:18 Dose: 10,000 unit Ferric Sodium Gluconate Complex (Ferrlecit) 125 mg IVPB DAILY [facility] Stop: 06/19/18 10:01 Furosemide (Lasix) 40 mg PO DAILY [facility] Last Admin: 06/10/18 10:45 Dose: 40 mg Guaifenesin (Robitussin) 100 mg PO QID [facility] Last Admin: 06/10/18 21:26 Dose: 100 mg Meropenem 500 mg/ Sodium (Chloride) 100 mls @ 100 mls/hr IVPB Q12 JOSSIE PRN Reason: Protocol Last Admin: 06/10/18 21:25 Dose: 100 mls/hr Ciprofloxacin (Cipro 400mg/200ml Dsw) 400 mg in 200 mls @ 133 mls/hr IVPB Q24H JOSSIE PRN Reason: Protocol Last Admin: 06/10/18 14:00 Dose: 133 mls/hr Insulin Aspart (Novolog) 0 unit SC ACHS JOSSIE PRN Reason: Protocol Last Admin: 06/10/18 21:47 Dose: Not Given Lactobacillus Acidophilus (Bacid Acidophilus) 1 cap PO BID [facility] Last Admin: 06/10/18 17:47 Dose: 1 cap Methylprednisolone (Solu-Medrol) 125 mg IVP ONCE PRN PRN Reason: Allergy symptoms Morphine Sulfate (Morphine) 6 mg IVP Q4H PRN PRN Reason: Pain, severe (8-10) Last Admin: 06/10/18 16:02 Dose: 6 mg Ondansetron HCl (Zofran Tab) 4 mg PO DAILY [facility] Last Admin: 06/10/18 10:44 Dose: 4 mg Pantoprazole Sodium (Protonix Ec Tab) 40 mg PO DAILY [facility] Last Admin: 06/10/18 10:43 Dose: 40 mg Rosuvastatin Calcium (Crestor) 10 mg PO HS [facility] Last Admin: 06/10/18 21:26 Dose: 10 mg Sevelamer Carbonate (Renvela) 2.4 gm PO TIDCC [facility] Last Admin: 06/10/18 17:47 Dose: 2.4 gm Tramadol HCl (Ultram) 50 mg PO Q8H PRN PRN Reason: Pain, moderate (4-7) Last Admin: 06/10/18 14:31 Dose: 50 mg - Labs Labs: 06/10/18 07:48 06/10/18 07:48 PT 12.3 SECONDS (9.7-12.2) H 06/01/18 11:06 INR 1.1 06/01/18 11:06 APTT 39 SECONDS (21-34) H 06/01/18 11:06 - Constitutional Appears: No Acute Distress - Respiratory Exam Respiratory Exam: Clear to Ausculation Bilateral - Cardiovascular Exam Cardiovascular Exam: REGULAR RHYTHM - GI/Abdominal Exam GI & Abdominal Exam: Soft, Tenderness Additional comments: obese abd diffusely tender - Extremities Exam Additional comments: lymphedema both legs - Skin Skin Exam: Dry Assessment and Plan (1) Bacteremia due to Gram-negative bacteria Status: Acute (2) ESRD needing dialysis Status: Acute (3) Morbid obesity Status: Acute (4) Sepsis Status: Acute (5) ESRD on hemodialysis Status: Chronic (6) Lymphedema in adult patient Status: Acute (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
[2018-06-11] MEDS: (Novolog) Insulin Aspart, Recombinant 100 u/ml 10 ml vial SC SCH ×4 (08:30→21:29)
[2018-06-11] MEDS: Sevelamer Carb 2.4 gm/Packet PO SCH ×3 (08:56→17:59)
[2018-06-11] MEDS: Meropenem 500 MG in Sodium Chloride 0.9% 100 ML IVPB SCH ×2 (09:51→22:49)
[2018-06-11] MEDS: Lactobacillus Acidophilus 500 MU Cap PO SCH ×3 (09:52→19:35)
[2018-06-11] MEDS: Pantoprazole 40 mg EC Tab PO SCH (09:52)
[2018-06-11] MEDS: guaiFENesin 100 mg/5 ml Syrup UD PO SCH ×5 (09:52→22:49)
[2018-06-11 13:51] LABS: BASO # 0.1 K/uL (0.0-0.2); BASO % 0.6 % (0.0-2.0); EOS # 0.3 K/uL (0.0-0.7); EOS % 1.4 % (0.0-4.0); LYMPH # 0.4 K/uL (1.0-4.3); LYMPH % 2.3 % (20.0-40.0); MEAN CELL VOLUME 76.4 fL (80.0-94.0); MEAN CORPUSCULAR HEMOGLOBIN 24.4 pg (27.0-31.0); MEAN PLATELET VOLUME 7.6 fL (7.2-11.7); MONO # 1.7 K/uL (0.0-0.8); NEUT # 16.8 K/uL (1.8-7.0); NEUT % 86.7 % (50.0-75.0); PLATELET COUNT 324 K/uL (130-400); RBC 3.67 Mil/uL (4.40-5.90); RED CELL DISTRIBUTION WIDTH 19.5 % (11.5-14.5); WHITE BLOOD COUNT 19.4 K/uL (4.8-10.8)
[2018-06-11] MEDS: Epoetin Alfa 10,000 unit/ml Dialysis IV SCH (14:12)
[2018-06-11] MEDS: Ferric Sodium Gluconat Complex 62.5 mg/5 ml Vial IVPB SCH (14:12)
[2018-06-11 14:25] LABS: BANDS 2 % (0-2); EOSINOPHIL 2 % (0-4); LYMPHOCYTE 6 % (20-40); MONOCYTE 7 % (0-10); NEUTROPHIL 83 % (50-75); PLATELET ESTIMATE NORMAL (NORMAL); TOTAL CELLS COUNTED 100
[2018-06-11 14:26] LABS: ANISOCYTOSIS MODERATE; HYPOCHROMIC SLIGHT; MICROCYTOSIS SLIGHT; POLYCHROMIC SLIGHT
[2018-06-11 14:28] LABS: OVALOCYTES SLIGHT; POIKILOCYTOSIS SLIGHT; SCHISTOCYTES SLIGHT
--- NOTE | 2018-06-11 14:56 | CP.PCM.PN ---
Subjective - Date & Time of Evaluation Date of Evaluation: 06/11/18 Time of Evaluation: 08:00 - Subjective Subjective: clinically same Objective - Vital Signs/Intake and Output Vital Signs (last 24 hours): Temp Pulse Resp BP Pulse Ox 97.7 F 88 20 135/82 99 06/11/18 13:30 06/11/18 13:30 06/11/18 13:30 06/11/18 14:15 06/11/18 13:30 - Medications Medications: Current Medications Acetaminophen (Tylenol 325mg Tab) 650 mg PO Q6 PRN PRN Reason: Fever >100.4 F Last Admin: 06/03/18 00:20 Dose: 650 mg Albuterol/Ipratropium (Duoneb 3 Mg/0.5 Mg (3 Ml) Ud) 3 ml INH RQ6 [facility] Last Admin: 06/11/18 13:38 Dose: Not Given Calcium Acetate (Phoslo) 667 mg PO TID [facility] Last Admin: 06/11/18 14:21 Dose: Not Given Docusate Sodium (Colace) 100 mg PO BID [facility] Last Admin: 06/11/18 09:52 Dose: 100 mg Epoetin Ventura (Procrit) 10,000 unit IV TTS [facility] Last Admin: 06/11/18 14:12 Dose: 10,000 unit Ferric Sodium Gluconate Complex (Ferrlecit) 125 mg IVPB DAILY [facility] Stop: 06/19/18 10:01 Last Admin: 06/11/18 14:12 Dose: 125 mg Furosemide (Lasix) 40 mg PO DAILY [facility] Last Admin: 06/11/18 09:52 Dose: 40 mg Guaifenesin (Robitussin) 100 mg PO QID [facility] Last Admin: 06/11/18 14:21 Dose: Not Given Meropenem 500 mg/ Sodium (Chloride) 100 mls @ 100 mls/hr IVPB Q12 [facility] PRN Reason: Protocol Last Admin: 06/11/18 09:51 Dose: 100 mls/hr Ciprofloxacin (Cipro 400mg/200ml Dsw) 400 mg in 200 mls @ 133 mls/hr IVPB Q24H [facility] PRN Reason: Protocol Last Admin: 06/10/18 14:00 Dose: 133 mls/hr Insulin Aspart (Novolog) 0 unit SC ACHS [facility] PRN Reason: Protocol Last Admin: 06/11/18 12:30 Dose: Not Given Lactobacillus Acidophilus (Bacid Acidophilus) 1 cap PO BID [facility] Last Admin: 06/11/18 09:52 Dose: 1 cap Methylprednisolone (Solu-Medrol) 125 mg IVP ONCE PRN PRN Reason: Allergy symptoms Morphine Sulfate (Morphine) 6 mg IVP Q4H PRN PRN Reason: Pain, severe (8-10) Last Admin: 06/10/18 16:02 Dose: 6 mg Ondansetron HCl (Zofran Tab) 4 mg PO DAILY [facility] Last Admin: 06/11/18 09:52 Dose: 4 mg Pantoprazole Sodium (Protonix Ec Tab) 40 mg PO DAILY [facility] Last Admin: 06/11/18 09:52 Dose: 40 mg Rosuvastatin Calcium (Crestor) 10 mg PO HS [facility] Last Admin: 06/10/18 21:26 Dose: 10 mg Sevelamer Carbonate (Renvela) 2.4 gm PO TIDCC [facility] Last Admin: 06/11/18 12:30 Dose: Not Given Tramadol HCl (Ultram) 50 mg PO Q8H PRN PRN Reason: Pain, moderate (4-7) Last Admin: 06/10/18 14:31 Dose: 50 mg - Labs Labs: 06/11/18 13:46 06/10/18 07:48 PT 12.3 SECONDS (9.7-12.2) H 06/01/18 11:06 INR 1.1 06/01/18 11:06 APTT 39 SECONDS (21-34) H 06/01/18 11:06 - Constitutional Appears: Well - Head Exam Head Exam: ATRAUMATIC, NORMAL INSPECTION, NORMOCEPHALIC - Eye Exam Eye Exam: EOMI, Normal appearance, PERRL Pupil Exam: NORMAL ACCOMODATION, PERRL - ENT Exam ENT Exam: Mucous Membranes Moist, Normal Exam - Neck Exam Neck Exam: Full ROM, Normal Inspection. absent: Lymphadenopathy - Respiratory Exam Respiratory Exam: Decreased Breath Sounds - Cardiovascular Exam Cardiovascular Exam: REGULAR RHYTHM, +S1, +S2 - GI/Abdominal Exam GI & Abdominal Exam: Soft, Diminished Bowel Sounds - Rectal Exam Rectal Exam: Deferred
--- NOTE | 2018-06-11 15:20 | CP.PCM.PN ---
Subjective - Date & Time of Evaluation Date of Evaluation: 06/11/18 Time of Evaluation: 02:00 - Subjective Subjective: dictated Objective - Vital Signs/Intake and Output Vital Signs (last 24 hours): Temp Pulse Resp BP Pulse Ox 97.7 F 88 20 127/77 99 06/11/18 13:30 06/11/18 13:30 06/11/18 13:30 06/11/18 15:00 06/11/18 13:30 Intake and Output: 06/11/18 06/11/18 06:59 18:59 Intake Total 500 Balance 500 - Medications Medications: Current Medications Acetaminophen (Tylenol 325mg Tab) 650 mg PO Q6 PRN PRN Reason: Fever >100.4 F Last Admin: 06/03/18 00:20 Dose: 650 mg Albuterol/Ipratropium (Duoneb 3 Mg/0.5 Mg (3 Ml) Ud) 3 ml INH RQ6 [facility] Last Admin: 06/11/18 13:38 Dose: Not Given Calcium Acetate (Phoslo) 667 mg PO TID [facility] Last Admin: 06/11/18 14:21 Dose: Not Given Docusate Sodium (Colace) 100 mg PO BID [facility] Last Admin: 06/11/18 09:52 Dose: 100 mg Epoetin Ventura (Procrit) 10,000 unit IV TTS [facility] Last Admin: 06/11/18 14:12 Dose: 10,000 unit Ferric Sodium Gluconate Complex (Ferrlecit) 125 mg IVPB DAILY [facility] Stop: 06/19/18 10:01 Last Admin: 06/11/18 14:12 Dose: 125 mg Furosemide (Lasix) 40 mg PO DAILY [facility] Last Admin: 06/11/18 09:52 Dose: 40 mg Guaifenesin (Robitussin) 100 mg PO QID [facility] Last Admin: 06/11/18 14:21 Dose: Not Given Meropenem 500 mg/ Sodium (Chloride) 100 mls @ 100 mls/hr IVPB Q12 [facility] PRN Reason: Protocol Last Admin: 06/11/18 09:51 Dose: 100 mls/hr Ciprofloxacin (Cipro 400mg/200ml Dsw) 400 mg in 200 mls @ 133 mls/hr IVPB Q24H [facility] PRN Reason: Protocol Last Admin: 06/10/18 14:00 Dose: 133 mls/hr Insulin Aspart (Novolog) 0 unit SC ACHS [facility] PRN Reason: Protocol Last Admin: 06/11/18 12:30 Dose: Not Given Lactobacillus Acidophilus (Bacid Acidophilus) 1 cap PO BID [facility] Last Admin: 06/11/18 09:52 Dose: 1 cap Methylprednisolone (Solu-Medrol) 125 mg IVP ONCE PRN PRN Reason: Allergy symptoms Morphine Sulfate (Morphine) 6 mg IVP Q4H PRN PRN Reason: Pain, severe (8-10) Last Admin: 06/10/18 16:02 Dose: 6 mg Ondansetron HCl (Zofran Tab) 4 mg PO DAILY [facility] Last Admin: 06/11/18 09:52 Dose: 4 mg Pantoprazole Sodium (Protonix Ec Tab) 40 mg PO DAILY [facility] Last Admin: 06/11/18 09:52 Dose: 40 mg Rosuvastatin Calcium (Crestor) 10 mg PO HS [facility] Last Admin: 06/10/18 21:26 Dose: 10 mg Sevelamer Carbonate (Renvela) 2.4 gm PO TIDCC [facility] Last Admin: 06/11/18 12:30 Dose: Not Given Tramadol HCl (Ultram) 50 mg PO Q8H PRN PRN Reason: Pain, moderate (4-7) Last Admin: 06/10/18 14:31 Dose: 50 mg - Labs Labs: 06/11/18 13:46 06/10/18 07:48 PT 12.3 SECONDS (9.7-12.2) H 06/01/18 11:06 INR 1.1 06/01/18 11:06 APTT 39 SECONDS (21-34) H 06/01/18 11:06
--- NOTE | 2018-06-11 17:22 | CP.PCM.PN ---
Subjective - Date & Time of Evaluation Date of Evaluation: 06/11/18 Time of Evaluation: 17:19 - Subjective Subjective: PT ALERT, FEELS OK. ROS; OTHERWISE NEG Objective - Vital Signs/Intake and Output Vital Signs (last 24 hours): Temp Pulse Resp BP Pulse Ox 97.6 F 91 H 18 112/63 95 06/11/18 16:30 06/11/18 16:30 06/11/18 16:30 06/11/18 16:30 06/11/18 16:30 Intake and Output: 06/11/18 06/11/18 06:59 18:59 Intake Total 500 Balance 500 - Medications Medications: Current Medications Acetaminophen (Tylenol 325mg Tab) 650 mg PO Q6 PRN PRN Reason: Fever >100.4 F Last Admin: 06/03/18 00:20 Dose: 650 mg Albuterol/Ipratropium (Duoneb 3 Mg/0.5 Mg (3 Ml) Ud) 3 ml INH RQ6 [facility] Last Admin: 06/11/18 13:38 Dose: Not Given Calcium Acetate (Phoslo) 667 mg PO TID [facility] Last Admin: 06/11/18 14:21 Dose: Not Given Docusate Sodium (Colace) 100 mg PO BID [facility] Last Admin: 06/11/18 09:52 Dose: 100 mg Epoetin Ventura (Procrit) 10,000 unit IV TTS [facility] Last Admin: 06/11/18 14:12 Dose: 10,000 unit Ferric Sodium Gluconate Complex (Ferrlecit) 125 mg IVPB DAILY [facility] Stop: 06/19/18 10:01 Last Admin: 06/11/18 14:12 Dose: 125 mg Furosemide (Lasix) 40 mg PO DAILY [facility] Last Admin: 06/11/18 09:52 Dose: 40 mg Guaifenesin (Robitussin) 100 mg PO QID [facility] Last Admin: 06/11/18 14:21 Dose: Not Given Meropenem 500 mg/ Sodium (Chloride) 100 mls @ 100 mls/hr IVPB Q12 [facility] PRN Reason: Protocol Last Admin: 06/11/18 09:51 Dose: 100 mls/hr Ciprofloxacin (Cipro 400mg/200ml Dsw) 400 mg in 200 mls @ 133 mls/hr IVPB Q24H [facility] PRN Reason: Protocol Last Admin: 06/10/18 14:00 Dose: 133 mls/hr Insulin Aspart (Novolog) 0 unit SC ACHS [facility] PRN Reason: Protocol Last Admin: 06/11/18 12:30 Dose: Not Given Lactobacillus Acidophilus (Bacid Acidophilus) 1 cap PO BID [facility] Last Admin: 06/11/18 09:52 Dose: 1 cap Methylprednisolone (Solu-Medrol) 125 mg IVP ONCE PRN PRN Reason: Allergy symptoms Morphine Sulfate (Morphine) 6 mg IVP Q4H PRN PRN Reason: Pain, severe (8-10) Last Admin: 06/10/18 16:02 Dose: 6 mg Ondansetron HCl (Zofran Tab) 4 mg PO DAILY [facility] Last Admin: 06/11/18 09:52 Dose: 4 mg Pantoprazole Sodium (Protonix Ec Tab) 40 mg PO DAILY [facility] Last Admin: 06/11/18 09:52 Dose: 40 mg Rosuvastatin Calcium (Crestor) 10 mg PO HS [facility] Last Admin: 06/10/18 21:26 Dose: 10 mg Sevelamer Carbonate (Renvela) 2.4 gm PO TIDCC [facility] Last Admin: 06/11/18 12:30 Dose: Not Given Tramadol HCl (Ultram) 50 mg PO Q8H PRN PRN Reason: Pain, moderate (4-7) Last Admin: 06/10/18 14:31 Dose: 50 mg - Labs Labs: 06/11/18 13:46 06/10/18 07:48 PT 12.3 SECONDS (9.7-12.2) H 06/01/18 11:06 INR 1.1 06/01/18 11:06 APTT 39 SECONDS (21-34) H 06/01/18 11:06 - Constitutional Appears: No Acute Distress, Chronically Ill - Head Exam Head Exam: ATRAUMATIC, NORMOCEPHALIC - Eye Exam Eye Exam: EOMI, Normal appearance - ENT Exam ENT Exam: Mucous Membranes Dry - Neck Exam Neck Exam: Normal Inspection - Respiratory Exam Respiratory Exam: Decreased Breath Sounds. absent: Accessory Muscle Use, Respiratory Distress - Cardiovascular Exam Cardiovascular Exam: RRR, +S1, +S2 - GI/Abdominal Exam GI & Abdominal Exam: Soft Additional comments: OBESE - Rectal Exam Rectal Exam: Deferred - Extremities Exam Additional comments: BILAT LYMPHEDEMA - Back Exam Back Exam: absent: CVA tenderness (L), CVA tenderness (R) - Neurological Exam Neurological Exam: Alert, Awake, CN II-XII Intact, Oriented x3 - Psychiatric Exam Psychiatric exam: Normal Affect - Skin Skin Exam: absent: Rash Assessment and Plan (1) COPD exacerbation Status: Acute (2) AV graft thrombosis Status: Acute (3) Bacteremia due to Gram-negative bacteria Status: Acute (4) Cellulitis of right leg Status: Acute (5) ESRD needing dialysis Status: Acute (6) Morbid obesity Status: Acute (7) Anemia Status: Acute (8) Cellulitis Status: Acute (9) Diabetes Status: Acute (10) Hypertension Status: Acute (11) Iron deficiency anemia Status: Acute (12) Lymphedema Status: Acute - Assessment and Plan (Free Text) Assessment: RESP STATUS NO SIG CHANGE., CONT PULM TOILET., NEB BD., CXR REVIEWED. HD IN PROGRESS. AFEBILE ON AB PER ID. PROG POOR., DISCUSSED WITH STAFF.
[2018-06-11] MEDS: Morphine 4 MG/ML VIAL IVP PRN ×2 (19:04→22:49)
[2018-06-11] MEDS: Ciprofloxacin 400mg/200ml D5W 400 MG/200 ML BAG IVPB SCH (19:26)
--- NOTE | 2018-06-11 21:01 | PN ---
DATE: 06/11/2018 SUBJECTIVE: The patient was seen and he was getting dialysis done today. We have repeated the CBC count, which has looked still better. He was burping, falling asleep. He is morbidly obese and he says he has not had a bowel movement for some time. We will order some lactulose. PHYSICAL EXAMINATION: VITAL SIGNS: T-max is 98 and blood pressure was 117/74, respirations are 20. HEENT: Head is atraumatic and normocephalic. NECK: Supple. LUNGS: Clear. HEART: S1, S2 is regular. ABDOMEN: Flabby, nontender. EXTREMITIES: Remain with bilateral lymphedema and there is no cellulitis noted at this time. He did have Acinetobacter bacteremia with septic shock and is getting antibiotics and he is going to go to Rehab I am told, so I wanted to repeat the CBC as his white count was high and at this time the repeat labs show that his CBC is little better and white count is 19.4, hemoglobin 9, hematocrit 28.8, platelet count is 324 and neutrophils are 83, bands are 2, lymphocytes are 6. His calcitonin came out to be 41.61, which is really high, so I do not think he should go to Rehab. He is 400 pounds and I would like to complete the course here and we will call the nursing and we will follow. It is hard to get any CAT scan done because of his weight to look for any additional sources of sepsis and echo was done. Echo shows moderately reduced LV systolic function with paradoxical septal motion at this time we will follow and await until procalcitonin gets better. Alec Boucher MD
[2018-06-12] MEDS: Morphine 4 MG/ML VIAL IVP PRN ×4 (02:06→19:33)
--- NOTE | 2018-06-12 06:43 | CT ---
Date of service: 06/11/2018 PROCEDURE: CT Abdomen and Pelvis without intravenous contrast HISTORY: abdominal pain COMPARISON: None. TECHNIQUE: Multiple contiguous axial images were performed through the abdomen pelvis without the use of intravenous contrast. Subsequently, sagittal and coronal reformatted images were obtained. Radiation dose: Total exam DLP = 2170 mGy-cm. This CT exam was performed using one or more of the following dose reduction techniques: Automated exposure control, adjustment of the mA and/or kV according to patient size, and/or use of iterative reconstruction technique. FINDINGS: LOWER THORAX: Mild bibasilar atelectasis. 5 millimeter pulmonary nodule within the right middle lobe. LIVER: Hepatomegaly and fatty infiltration of the liver. GALLBLADDER AND BILE DUCTS: Cholelithiasis. PANCREAS: Unremarkable. No gross lesion or ductal dilatation. SPLEEN: Unremarkable. ADRENALS: Unremarkable. No mass. KIDNEYS AND URETERS: Atrophic kidneys consistent with chronic renal disease. VASCULATURE: Unremarkable. No aortic aneurysm. BOWEL: Multiple dilated fluid-filled loops of small bowel are seen with a transition zone in the pelvis worrisome for small bowel obstruction. Prominent amount of retained gas and stool in the colon. APPENDIX: Unremarkable. Normal appendix. PERITONEUM: Moderate amount of ascites. LYMPH NODES: Shotty inguinal and para-aortic lymph nodes. Shotty mesenteric lymph nodes. 2.7 centimeter left and 3.0 centimeter right inguinal lymphadenopathy. BLADDER: Unremarkable. REPRODUCTIVE: Unremarkable. BONES: Degenerative changes in spine and bilateral hips. Degenerative changes at the bilateral SI joints. 2.3 centimeter rounded sclerotic foci seen in the L2 vertebral body, nonspecific. Clinical correlation. OTHER FINDINGS: Large fat containing umbilical hernia. Severe subcutaneous edema seen within the buttocks and proximal thighs, right greater than left consistent with cellulitis. IMPRESSION: Small bowel dilatation suggestive for obstruction. Severe cellulitis in the buttocks and proximal thighs. Additional findings as above. These findings were preliminarily reported at 11:06 p.m. on 06/11/[address] Yasmin Villalba from [employer]
[2018-06-12] MEDS: (Novolog) Insulin Aspart, Recombinant 100 u/ml 10 ml vial SC SCH ×4 (07:39→21:30)
--- NOTE | 2018-06-12 07:54 | RAD ---
Chest x-ray single frontal view History: Elevated white blood cell count. Comparison: 06/02/2018 Findings: Biapical pleural thickening with upper lobe granulomatous changes. Right central venous catheter in stable position. Diffuse increased interstitial lung markings. Mild venous congestion. Nodular and consolidative changes noted within the left mid to lower lung zone. Mild cardiomegaly. Degenerative changes in the spine and shoulders. Left axillary stent in place. Impression: Biapical pleural thickening with upper lobe granulomatous changes. Right central venous catheter in stable position. Diffuse increased interstitial lung markings. Mild venous congestion. Nodular and consolidative changes noted within the left mid to lower lung zone. Mild cardiomegaly. Degenerative changes in the spine and shoulders. Left axillary stent in place.
[2018-06-12] MEDS: Dextrose 5%/0.45% NS 1,000 ML IV SCH (08:15)
--- NOTE | 2018-06-12 08:15 | CP.PCM.CON ---
History of Present Illness - History of Present Illness History of Present Illness: Asked by Dr. Gaming for a GI consultation on this patient. 52 year old male with history of morbid obesity (BMI 56), chronic LE lymphedema, ESRD on HD, DM, HTN, COPD who initially presented to hospital 11 days ago with complaint of LE pain and chills, diagnosed with cellulitis and bacteremia. GI called for evaluation of abdominal pain which began 3 days ago. He describes a sharp jose- umbilical pain 7/10 intensity which is non-radiating and worse following meal consumption. Yesterday he notes one episode of non-bloody vomiting after dinner. He denies fever/chills, weight loss, rectal bleeding, or change in bowel habits. No bowel movements over past 2 days. No prior endoscopic evaluation. Social history: smokes 1/2 PPD cigarettes, no ETOH use Family history: reviewed, denies history of GI malignancies Review of Systems - Review of Systems Review of Systems: - All other comprehensive 12 point review of systems performed, negative - Constitutional Constitutional: Lethargy, Weakness - Cardiovascular Cardiovascular: absent: Acrocyanosis, Chest Pain, Chest Pain at Rest, Chest Pain with Activity, Claudication, Diaphoresis, Dyspnea, Dyspnea on Exertion, Edema, Irregular Heart Rhythm, Pain Radiating to Arm/Neck/Jaw, Leg Edema, Leg Ulcers, Lightheadedness, Orthopnea, Palpitations, Paroxysmal Nocturnal Dyspnea, Pedal Edema, Radiating Pain, Rapid Heart Rate, Slow Heart Rate, Syncope, Other - Respiratory Respiratory: absent: Cough, Dyspnea, Hemoptysis, Dyspnea on Exertion, Wheezing, Snoring, Stridor, Pain on Inspiration, Chest Congestion, Excessive Mucous Production, Change in Mucous Color, Pain with Coughing, Other - Gastrointestinal Gastrointestinal: Abdominal Pain - Musculoskeletal Musculoskeletal: absent: Abnormal Gait, Arthralgias, Atrophy, Back Pain, Deformity, Joint Swelling, Limited Range of Motion, Loss of Height, Muscle Cramps, Muscle Weakness, Myalgias, Neck Pain, Numbness, Radiating Pain into Limb , Stiffness, Tingling, Other - Neurological Neurological: absent: Abnormal Gait, Abnormal Hearing, Abnormal Movements, Abnormal Speech, Behavioral Changes, Burning Sensations, Confusion, Convulsions , Disequilibrium, Dizziness, Numbness, Focal Weakness, Frequent Falls, Headaches , Lack of Coordination, Loss of Vision, Memory Loss, Paresthesias, Radicular Pain, Restless Legs, Sensory Deficit, Syncope, Tingling, Tremor, Vertigo, Weakness, Other Visual Disturbances, Other Past Patient History - Infectious Disease Hx of Infectious Diseases: None - Past Medical History & Family History Past Medical History?: Yes Past Family History: Reviewed and not pertinent - Past Social History Smoking Status: Current Some Days Smoker Chewing Tobacco Use: No Cigar Use: No Alcohol: Occasional Drugs: Denies Home Situation {Lives}: Alone - CARDIAC Hx Hypertension: Yes - PULMONARY Hx Chronic Obstructive Pulmonary Disease (COPD): Yes - NEUROLOGICAL Hx Neurological Disorder: No - HEENT Hx HEENT Problems: No - RENAL Hx Renal Failure: Yes (ESRD, CKD) - ENDOCRINE/METABOLIC Hx Diabetes Mellitus Type 2: Yes - HEMATOLOGICAL/ONCOLOGICAL Hx Anemia: Yes - INTEGUMENTARY Hx Dermatological Problems: Yes Hx Cellulitis: Yes (BILATERAL LEGS) - MUSCULOSKELETAL/RHEUMATOLOGICAL Hx Falls: No - GASTROINTESTINAL Hx Gastrointestinal Disorders: Yes Hx Gastroesophageal Reflux: Yes - GENITOURINARY/GYNECOLOGICAL Hx Genitourinary Disorders: No - PSYCHIATRIC Hx Substance Use: No - SURGICAL HISTORY Hx Surgeries: Yes (Left arm AV Fistula) Hx Vascular Surgery: Yes ([facility]) - ANESTHESIA Hx Anesthesia: Yes Hx Anesthesia Reactions: No Hx Malignant Hyperthermia: No Meds Allergies/Adverse Reactions: Allergies Allergy/AdvReac Type Severity Reaction Status Date / Time Penicillins Allergy Verified 10/26/17 16:12 tazobactam [From Zosyn] Allergy Verified 02/04/18 17:27 piperacillin AdvReac ITCHING, Verified 10/22/17 03:21 SHORTNESS OF BREATH PET DANDER Allergy Severe CONGESTION Uncoded 10/22/17 03:21 - Medications Medications: Current Medications Acetaminophen (Tylenol 325mg Tab) 650 mg PO Q6 PRN PRN Reason: Fever >100.4 F Last Admin: 06/03/18 00:20 Dose: 650 mg Calcium Acetate (Phoslo) 667 mg PO TID [facility] Last Admin: 06/11/18 19:04 Dose: 667 mg Docusate Sodium (Colace) 100 mg PO BID [facility] Last Admin: 06/11/18 19:04 Dose: 100 mg Epoetin Ventura (Procrit) 10,000 unit IV TTS [facility] Last Admin: 06/11/18 14:12 Dose: 10,000 unit Ferric Sodium Gluconate Complex (Ferrlecit) 125 mg IVPB DAILY [facility] Stop: 06/19/18 10:01 Last Admin: 06/11/18 14:12 Dose: 125 mg Furosemide (Lasix) 40 mg PO DAILY [facility] Last Admin: 06/11/18 09:52 Dose: 40 mg Guaifenesin (Robitussin) 100 mg PO QID [facility] Last Admin: 06/11/18 22:49 Dose: 100 mg Meropenem 500 mg/ Sodium (Chloride) 100 mls @ 100 mls/hr IVPB Q12 [facility] PRN Reason: Protocol Last Admin: 06/11/18 22:49 Dose: 100 mls/hr Ciprofloxacin (Cipro 400mg/200ml Dsw) 400 mg in 200 mls @ 133 mls/hr IVPB Q24H [facility] PRN Reason: Protocol Last Admin: 06/11/18 19:26 Dose: 133 mls/hr Dextrose/Sodium Chloride (Dextrose 5%/0.45% Ns 1000 Ml) 1,000 mls @ 60 mls/hr IV .[id number] [facility] Insulin Aspart (Novolog) 0 unit SC ACHS [facility] PRN Reason: Protocol Last Admin: 06/12/18 07:39 Dose: Not Given Lactobacillus Acidophilus (Bacid Acidophilus) 1 cap PO BID [facility] Last Admin: 06/11/18 19:35 Dose: Not Given Methylprednisolone (Solu-Medrol) 125 mg IVP ONCE PRN PRN Reason: Allergy symptoms Morphine Sulfate (Morphine) 6 mg IVP Q4H PRN PRN Reason: Pain, severe (8-10) Last Admin: 06/12/18 06:42 Dose: 6 mg Ondansetron HCl (Zofran Tab) 4 mg PO DAILY [facility] Last Admin: 06/11/18 09:52 Dose: 4 mg Ondansetron HCl (Zofran Inj) 4 mg IVP DAILY@ONCE PRN PRN Reason: Nausea/Vomiting Last Admin: 06/11/18 18:55 Dose: 4 mg Pantoprazole Sodium (Protonix Ec Tab) 40 mg PO DAILY [facility] Last Admin: 06/11/18 09:52 Dose: 40 mg Rosuvastatin Calcium (Crestor) 10 mg PO HS [facility] Last Admin: 06/11/18 22:49 Dose: 10 mg Sevelamer Carbonate (Renvela) 2.4 gm PO TIDCC [facility] Last Admin: 06/11/18 17:59 Dose: Not Given Tramadol HCl (Ultram) 50 mg PO Q8H PRN PRN Reason: Pain, moderate (4-7) Last Admin: 06/10/18 14:31 Dose: 50 mg Physical Exam - Constitutional Appears: Non-toxic, Chronically Ill - Head Exam Head Exam: NORMAL INSPECTION - Eye Exam Eye Exam: EOMI, Normal appearance - ENT Exam ENT Exam: Mucous Membranes Dry - Respiratory Exam Respiratory Exam: Decreased Breath Sounds Additional comments: bilateral bases - Cardiovascular Exam Cardiovascular Exam: REGULAR RHYTHM, +S1, +S2 Additional comments: dialysis port present on R anterior chest wall - GI/Abdominal Exam GI & Abdominal Exam: Hypoactive Bowel Sounds, Soft Additional comments: obese, tenderness in jose-umbilical area, +guarding unable to appreciate hepato/splenomegaly given body habitus - Extremities Exam Additional comments: 2+ pitting edema b/l lower extremities - Neurological Exam Neurological exam: Alert, CN II-XII Intact, Oriented x3, Reflexes Normal - Psychiatric Exam Psychiatric exam: Depressed, Flat Affect - Skin Skin Exam: Dry, Intact, Normal Color, Warm Results - Vital Signs Recent Vital Signs: Last Vital Signs Temp 97.6 F 06/11/18 23:00 Pulse 92 H 06/11/18 23:00 Resp 20 06/11/18 23:00 BP 127/73 06/11/18 23:00 Pulse Ox 93 L 06/11/18 23:00 - Labs Result Diagrams: 06/11/18 13:46 06/10/18 07:48 Labs: Laboratory Results - last 24 hr 06/11/18 06/11/18 06/11/18 11:20 12:44 12:46 WBC RBC Hgb Hct MCV MCH MCHC RDW Plt Count MPV Neut % (Auto) Lymph % (Auto) [place] % (Auto) Eos % (Auto) Baso % (Auto) Neut # (Auto) Lymph # (Auto) [place] # (Auto) Eos # (Auto) Baso # (Auto) Neutrophils % (Manual) Band Neutrophils % Lymphocytes % (Manual) Monocytes % (Manual) Eosinophils % (Manual) Platelet Estimate Polychromasia Hypochromasia (manual) Poikilocytosis (manual Anisocytosis (manual) Microcytosis (manual) Ovalocytes Schistocytes POC Glucose (mg/dL) 71 63 L 67 Procalcitonin 06/11/18 06/11/18 06/11/18 13:02 13:46 13:46 WBC 19.4 H RBC 3.67 L Hgb 9.0 L Hct 28.0 L MCV 76.4 L MCH 24.4 L MCHC 32.0 L RDW 19.5 H Plt Count 324 MPV 7.6 Neut % (Auto) 86.7 H Lymph % (Auto) 2.3 L [place] % (Auto) 9.0 Eos % (Auto) 1.4 Baso % (Auto) 0.6 Neut # (Auto) 16.8 H Lymph # (Auto) 0.4 L [place] # (Auto) 1.7 H Eos # (Auto) 0.3 Baso # (Auto) 0.1 Neutrophils % (Manual) 83 H Band Neutrophils % 2 Lymphocytes % (Manual) 6 L Monocytes % (Manual) 7 Eosinophils % (Manual) 2 Platelet Estimate Normal Polychromasia Slight Hypochromasia (manual) Slight Poikilocytosis (manual Slight Anisocytosis (manual) Moderate Microcytosis (manual) Slight Ovalocytes Slight Schistocytes Slight POC Glucose (mg/dL) 72 Procalcitonin 41.61 H 06/11/18 06/11/18 06/11/18 16:21 16:24 21:08 WBC RBC Hgb Hct MCV MCH MCHC RDW Plt Count MPV Neut % (Auto) Lymph % (Auto) [place] % (Auto) Eos % (Auto) Baso % (Auto) Neut # (Auto) Lymph # (Auto) [place] # (Auto) Eos # (Auto) Baso # (Auto) Neutrophils % (Manual) Band Neutrophils % Lymphocytes % (Manual) Monocytes % (Manual) Eosinophils % (Manual) Platelet Estimate Polychromasia Hypochromasia (manual) Poikilocytosis (manual Anisocytosis (manual) Microcytosis (manual) Ovalocytes Schistocytes POC Glucose (mg/dL) 69 71 92 Procalcitonin 06/12/18 06:16 WBC RBC Hgb Hct MCV MCH MCHC RDW Plt Count MPV Neut % (Auto) Lymph % (Auto) [place] % (Auto) Eos % (Auto) Baso % (Auto) Neut # (Auto) Lymph # (Auto) [place] # (Auto) Eos # (Auto) Baso # (Auto) Neutrophils % (Manual) Band Neutrophils % Lymphocytes % (Manual) Monocytes % (Manual) Eosinophils % (Manual) Platelet Estimate Polychromasia Hypochromasia (manual) Poikilocytosis (manual Anisocytosis (manual) Microcytosis (manual) Ovalocytes Schistocytes POC Glucose (mg/dL) 77 Procalcitonin Assessment & Plan - Assessment and Plan (Free Text) Assessment: Morbid obesity DM HTN ESRD on HD Chronic lower extremity lymphedema Sepsis, bacteremia Abdominal pain - CT imaging reviewed by me showing small bowel obstruction with transition point in pelvis Plan: - NPO - Begin gentle IVF hydration therapy, supportive care - Anti-emetic therapy PRN - Continue with antibiotic therapy as per ID - Follow up surgical recommendations regarding SBO - Will continue to monitor patient clinical course
[2018-06-12] MEDS: Sevelamer Carb 2.4 gm/Packet PO SCH ×3 (08:51→17:10)
[2018-06-12] MEDS ORDERED: Vancomycin 1 gm/NS 200 ml 1 GM/200 ML BAG IVPB ONE (10:00)
[2018-06-12] MEDS: Pantoprazole 40 mg EC Tab PO SCH (10:50)
[2018-06-12] MEDS: guaiFENesin 100 mg/5 ml Syrup UD PO SCH ×4 (10:50→22:23)
[2018-06-12] MEDS: Lactobacillus Acidophilus 500 MU Cap PO SCH ×2 (10:50→17:10)
[2018-06-12] MEDS: Ferric Sodium Gluconat Complex 62.5 mg/5 ml Vial IVPB SCH (10:51)
[2018-06-12] MEDS: Meropenem 500 MG in Sodium Chloride 0.9% 100 ML IVPB SCH ×2 (10:55→22:23)
[2018-06-12] MEDS: metroNIDAZOLE IV 500 mg/100 ml 500 MG/100 ML BAG IVPB SCH ×2 (10:55→19:34)
[2018-06-12] MEDS: Ciprofloxacin 400mg/200ml D5W 400 MG/200 ML BAG IVPB SCH (17:11)
--- NOTE | 2018-06-12 17:53 | CP.PCM.PN ---
Subjective - Date & Time of Evaluation Date of Evaluation: 06/12/18 Time of Evaluation: 17:50 - Subjective Subjective: PT IN NO DISTRESS. ROS ; OTHERWISE NEG. Objective - Vital Signs/Intake and Output Vital Signs (last 24 hours): Temp Pulse Resp BP Pulse Ox 97.4 F L 80 20 103/67 97 06/12/18 15:09 06/12/18 15:09 06/12/18 15:09 06/12/18 15:09 06/12/18 15:09 Intake and Output: 06/12/18 06/12/18 06:59 18:59 Intake Total 600 Balance 600 - Medications Medications: Current Medications Acetaminophen (Tylenol 325mg Tab) 650 mg PO Q6 PRN PRN Reason: Fever >100.4 F Last Admin: 06/03/18 00:20 Dose: 650 mg Calcium Acetate (Phoslo) 667 mg PO TID [facility] Last Admin: 06/12/18 17:10 Dose: 667 mg Docusate Sodium (Colace) 100 mg PO BID [facility] Last Admin: 06/12/18 17:10 Dose: 100 mg Epoetin Ventura (Procrit) 10,000 unit IV TTS [facility] Last Admin: 06/11/18 14:12 Dose: 10,000 unit Ferric Sodium Gluconate Complex (Ferrlecit) 125 mg IVPB DAILY [facility] Stop: 06/19/18 10:01 Last Admin: 06/12/18 10:51 Dose: 125 mg Furosemide (Lasix) 40 mg PO DAILY [facility] Last Admin: 06/12/18 10:51 Dose: 40 mg Guaifenesin (Robitussin) 100 mg PO QID [facility] Last Admin: 06/12/18 17:10 Dose: 100 mg Meropenem 500 mg/ Sodium (Chloride) 100 mls @ 100 mls/hr IVPB Q12 [facility] PRN Reason: Protocol Last Admin: 06/12/18 10:55 Dose: 100 mls/hr Ciprofloxacin (Cipro 400mg/200ml Dsw) 400 mg in 200 mls @ 133 mls/hr IVPB Q24H [facility] PRN Reason: Protocol Last Admin: 06/12/18 17:11 Dose: 133 mls/hr Dextrose/Sodium Chloride (Dextrose 5%/0.45% Ns 1000 Ml) 1,000 mls @ 60 mls/hr IV .[id number] [facility] Last Admin: 06/12/18 08:15 Dose: 60 mls/hr Metronidazole (Flagyl) 500 mg in 100 mls @ 100 mls/hr IVPB Q8H [facility] PRN Reason: Protocol Last Admin: 06/12/18 10:55 Dose: 100 mls/hr Insulin Aspart (Novolog) 0 unit SC ACHS [facility] PRN Reason: Protocol Last Admin: 06/12/18 17:05 Dose: Not Given Lactobacillus Acidophilus (Bacid Acidophilus) 1 cap PO BID [facility] Last Admin: 06/12/18 17:10 Dose: 1 cap Methylprednisolone (Solu-Medrol) 125 mg IVP ONCE PRN PRN Reason: Allergy symptoms Morphine Sulfate (Morphine) 6 mg IVP Q4H PRN PRN Reason: Pain, severe (8-10) Last Admin: 06/12/18 13:58 Dose: 6 mg Ondansetron HCl (Zofran Tab) 4 mg PO DAILY [facility] Last Admin: 06/12/18 10:50 Dose: 4 mg Ondansetron HCl (Zofran Inj) 4 mg IVP DAILY@ONCE PRN PRN Reason: Nausea/Vomiting Last Admin: 06/11/18 18:55 Dose: 4 mg Pantoprazole Sodium (Protonix Ec Tab) 40 mg PO DAILY [facility] Last Admin: 06/12/18 10:50 Dose: 40 mg Rosuvastatin Calcium (Crestor) 10 mg PO HS [facility] Last Admin: 06/11/18 22:49 Dose: 10 mg Sevelamer Carbonate (Renvela) 2.4 gm PO TIDCC [facility] Last Admin: 06/12/18 17:10 Dose: 2.4 gm Tramadol HCl (Ultram) 50 mg PO Q8H PRN PRN Reason: Pain, moderate (4-7) Last Admin: 06/10/18 14:31 Dose: 50 mg - Labs Labs: 06/11/18 13:46 06/10/18 07:48 PT 12.3 SECONDS (9.7-12.2) H 06/01/18 11:06 INR 1.1 06/01/18 11:06 APTT 39 SECONDS (21-34) H 06/01/18 11:06 - Constitutional Appears: No Acute Distress, Chronically Ill - Head Exam Head Exam: ATRAUMATIC, NORMOCEPHALIC - Eye Exam Eye Exam: EOMI, Normal appearance - ENT Exam ENT Exam: Mucous Membranes Moist - Neck Exam Neck Exam: Normal Inspection - Respiratory Exam Respiratory Exam: Decreased Breath Sounds - Cardiovascular Exam Cardiovascular Exam: RRR, +S1, +S2 - GI/Abdominal Exam Additional comments: OBESE - Rectal Exam Rectal Exam: Deferred - Extremities Exam Additional comments: BILAT LYMPHEDEMA CHRONIC CHANGES. - Neurological Exam Neurological Exam: Alert, Awake, CN II-XII Intact, Oriented x3 - Psychiatric Exam Psychiatric exam: Normal Mood - Skin Skin Exam: absent: Rash Assessment and Plan (1) COPD exacerbation Status: Acute (2) AV graft thrombosis Status: Acute (3) Bacteremia due to Gram-negative bacteria Status: Acute (4) Cellulitis of right leg Status: Acute (5) ESRD needing dialysis Status: Acute (6) Morbid obesity Status: Acute (7) Anemia Status: Acute (8) Cellulitis Status: Acute (9) Diabetes Status: Acute (10) Hypertension Status: Acute (11) Iron deficiency anemia Status: Acute (12) Lymphedema Status: Acute - Assessment and Plan (Free Text) Assessment: RESP STATUS NO SIG CHANGE. CONT PULM TOILET. NEB BD., MONITOR O2 SAT. CXR REVIEWED. HD PER RENAL .CONT AB PER ID. GI EVAL NOTED. PROG POOR., DISCUSSED WITH STAFF.
[2018-06-13] MEDS: Dextrose 5%/0.45% NS 1,000 ML IV SCH ×2 (02:36→18:06)
[2018-06-13] MEDS: metroNIDAZOLE IV 500 mg/100 ml 500 MG/100 ML BAG IVPB SCH ×3 (03:36→19:38)
[2018-06-13] MEDS: Morphine 4 MG/ML VIAL IVP PRN ×4 (05:55→22:02)
[2018-06-13] MEDS: (Novolog) Insulin Aspart, Recombinant 100 u/ml 10 ml vial SC SCH ×4 (07:35→21:51)
--- NOTE | 2018-06-13 08:28 | CP.PCM.PN ---
<VeronicapattylizMateusz - Last Filed: 06/13/18 11:59> Subjective - Date & Time of Evaluation Date of Evaluation: 06/13/18 Time of Evaluation: 08:25 - Subjective Subjective: GI Fellow PGY4, progress note. Patient seen and examined at bedside. He admits improved abdominal pain, now 4/ 10. He is hungry and requesting food. No n/v in the last 24 hrs. He is passing gas, but no BMs and usually takes MiraLax. 12pt ROS completed and negative except for as above. Objective - Vital Signs/Intake and Output Vital Signs (last 24 hours): Temp Pulse Resp BP Pulse Ox 97.8 F 72 20 110/53 L 100 06/13/18 07:00 06/13/18 07:00 06/13/18 07:00 06/13/18 07:00 06/13/18 07:00 Intake and Output: 06/13/18 06/13/18 06:59 18:59 Intake Total 1360 Balance 1360 - Medications Medications: Current Medications Acetaminophen (Tylenol 325mg Tab) 650 mg PO Q6 PRN PRN Reason: Fever >100.4 F Last Admin: 06/03/18 00:20 Dose: 650 mg Calcium Acetate (Phoslo) 667 mg PO TID [facility] Last Admin: 06/12/18 17:10 Dose: 667 mg Docusate Sodium (Colace) 100 mg PO BID [facility] Last Admin: 06/12/18 17:10 Dose: 100 mg Epoetin Ventura (Procrit) 10,000 unit IV TTS [facility] Last Admin: 06/11/18 14:12 Dose: 10,000 unit Ferric Sodium Gluconate Complex (Ferrlecit) 125 mg IVPB DAILY [facility] Stop: 06/19/18 10:01 Last Admin: 06/12/18 10:51 Dose: 125 mg Furosemide (Lasix) 40 mg PO DAILY [facility] Last Admin: 06/12/18 10:51 Dose: 40 mg Guaifenesin (Robitussin) 100 mg PO QID [facility] Last Admin: 06/12/18 22:23 Dose: 100 mg Meropenem 500 mg/ Sodium (Chloride) 100 mls @ 100 mls/hr IVPB Q12 [facility] PRN Reason: Protocol Last Admin: 06/12/18 22:23 Dose: 100 mls/hr Ciprofloxacin (Cipro 400mg/200ml Dsw) 400 mg in 200 mls @ 133 mls/hr IVPB Q24H [facility] PRN Reason: Protocol Last Admin: 06/12/18 17:11 Dose: 133 mls/hr Dextrose/Sodium Chloride (Dextrose 5%/0.45% Ns 1000 Ml) 1,000 mls @ 60 mls/hr IV .[id number] [facility] Last Admin: 06/13/18 02:36 Dose: Not Given Metronidazole (Flagyl) 500 mg in 100 mls @ 100 mls/hr IVPB Q8H [facility] PRN Reason: Protocol Last Admin: 06/13/18 03:36 Dose: 100 mls/hr Insulin Aspart (Novolog) 0 unit SC ACHS [facility] PRN Reason: Protocol Last Admin: 06/13/18 07:35 Dose: Not Given Lactobacillus Acidophilus (Bacid Acidophilus) 1 cap PO BID [facility] Last Admin: 06/12/18 17:10 Dose: 1 cap Methylprednisolone (Solu-Medrol) 125 mg IVP ONCE PRN PRN Reason: Allergy symptoms Morphine Sulfate (Morphine) 6 mg IVP Q4H PRN PRN Reason: Pain, severe (8-10) Last Admin: 06/13/18 05:55 Dose: 6 mg Ondansetron HCl (Zofran Tab) 4 mg PO DAILY [facility] Last Admin: 06/12/18 10:50 Dose: 4 mg Ondansetron HCl (Zofran Inj) 4 mg IVP DAILY@ONCE PRN PRN Reason: Nausea/Vomiting Last Admin: 06/11/18 18:55 Dose: 4 mg Pantoprazole Sodium (Protonix Ec Tab) 40 mg PO DAILY [facility] Last Admin: 06/12/18 10:50 Dose: 40 mg Rosuvastatin Calcium (Crestor) 10 mg PO HS [facility] Last Admin: 06/12/18 22:23 Dose: 10 mg Sevelamer Carbonate (Renvela) 2.4 gm PO TIDCC [facility] Last Admin: 06/12/18 17:10 Dose: 2.4 gm Tramadol HCl (Ultram) 50 mg PO Q8H PRN PRN Reason: Pain, moderate (4-7) Last Admin: 06/10/18 14:31 Dose: 50 mg - Labs Labs: 06/11/18 13:46 06/10/18 07:48 PT 12.3 SECONDS (9.7-12.2) H 06/01/18 11:06 INR 1.1 06/01/18 11:06 APTT 39 SECONDS (21-34) H 06/01/18 11:06 - Constitutional Appears: Non-toxic, No Acute Distress, Chronically Ill - Head Exam Head Exam: ATRAUMATIC, NORMAL INSPECTION, NORMOCEPHALIC - Eye Exam Eye Exam: PERRL. absent: Periorbital tenderness, Scleral icterus - ENT Exam ENT Exam: Mucous Membranes Dry, Normal Exam - Respiratory Exam Respiratory Exam: Clear to Ausculation Bilateral, NORMAL BREATHING PATTERN. absent: Wheezes - Cardiovascular Exam Cardiovascular Exam: REGULAR RHYTHM, +S1, +S2 - GI/Abdominal Exam GI & Abdominal Exam: Tenderness, Hypoactive Bowel Sounds Additional comments: Protuberant. - Extremities Exam Extremities Exam: Pedal Edema. absent: Full ROM, Normal Inspection - Neurological Exam Neurological Exam: Alert, Awake, Oriented x3 - Psychiatric Exam Psychiatric exam: Agitated. absent: Normal Affect - Skin Skin Exam: Dry, Warm ( ) Assessment and Plan - Assessment and Plan (Free Text) Assessment: Morbid obesity DM HTN ESRD on HD Chronic lower extremity lymphedema Sepsis, bacteremia SBO Plan: - NPO except for ice chips, defer to surgery for further diet advancement as he has not had BM at this time. - Continue gentle IVF hydration therapy, supportive care - Anti-emetic therapy PRN - Continue with antibiotic therapy as per ID - Follow up surgical recommendations regarding SBO - Will continue to monitor patient clinical course <Vitaliy Cordero Y - Last Filed: 06/13/18 15:03> Objective - Vital Signs/Intake and Output Vital Signs (last 24 hours): Temp Pulse Resp BP Pulse Ox 97.8 F 72 20 110/53 L 100 06/13/18 07:00 06/13/18 07:00 06/13/18 07:00 06/13/18 10:28 06/13/18 07:00 Intake and Output: 06/13/18 06/13/18 06:59 18:59 Intake Total 1360 Balance 1360 - Medications Medications: Current Medications Acetaminophen (Tylenol 325mg Tab) 650 mg PO Q6 PRN PRN Reason: Fever >100.4 F Last Admin: 06/03/18 00:20 Dose: 650 mg Calcium Acetate (Phoslo) 667 mg PO TID [facility] Last Admin: 06/13/18 10:34 Dose: 667 mg Docusate Sodium (Colace) 100 mg PO BID [facility] Last Admin: 06/13/18 10:33 Dose: 100 mg Epoetin Ventura (Procrit) 10,000 unit IV TTS [facility] Last Admin: 06/11/18 14:12 Dose: 10,000 unit Ferric Sodium Gluconate Complex (Ferrlecit) 125 mg IVPB DAILY [facility] Stop: 06/19/18 10:01 Last Admin: 06/12/18 10:51 Dose: 125 mg Furosemide (Lasix) 40 mg PO DAILY [facility] Last Admin: 06/13/18 10:28 Dose: 40 mg Guaifenesin (Robitussin) 100 mg PO QID [facility] Last Admin: 06/13/18 10:34 Dose: Not Given Meropenem 500 mg/ Sodium (Chloride) 100 mls @ 100 mls/hr IVPB Q12 [facility] PRN Reason: Protocol Last Admin: 06/13/18 10:25 Dose: 100 mls/hr Ciprofloxacin (Cipro 400mg/200ml Dsw) 400 mg in 200 mls @ 133 mls/hr IVPB Q24H [facility] PRN Reason: Protocol Last Admin: 06/13/18 13:03 Dose: Not Given Dextrose/Sodium Chloride (Dextrose 5%/0.45% Ns 1000 Ml) 1,000 mls @ 60 mls/hr IV .[id number] [facility] Last Admin: 06/13/18 02:36 Dose: Not Given Metronidazole (Flagyl) 500 mg in 100 mls @ 100 mls/hr IVPB Q8H [facility] PRN Reason: Protocol Last Admin: 06/13/18 13:03 Dose: Not Given Insulin Aspart (Novolog) 0 unit SC ACHS [facility] PRN Reason: Protocol Last Admin: 06/13/18 12:47 Dose: Not Given Lactobacillus Acidophilus (Bacid Acidophilus) 1 cap PO BID [facility] Last Admin: 06/13/18 10:33 Dose: 1 cap Morphine Sulfate (Morphine) 6 mg IVP Q4H PRN PRN Reason: Pain, severe (8-10) Last Admin: 06/13/18 10:27 Dose: 6 mg Ondansetron HCl (Zofran Tab) 4 mg PO DAILY [facility] Last Admin: 06/13/18 10:28 Dose: 4 mg Ondansetron HCl (Zofran Inj) 4 mg IVP DAILY@ONCE PRN PRN Reason: Nausea/Vomiting Last Admin: 06/11/18 18:55 Dose: 4 mg Pantoprazole Sodium (Protonix Ec Tab) 40 mg PO DAILY [facility] Last Admin: 06/13/18 10:28 Dose: 40 mg Rosuvastatin Calcium (Crestor) 10 mg PO HS [facility] Last Admin: 06/12/18 22:23 Dose: 10 mg Sevelamer Carbonate (Renvela) 2.4 gm PO TIDCC [facility] Last Admin: 06/13/18 13:03 Dose: Not Given Tramadol HCl (Ultram) 50 mg PO Q8H PRN PRN Reason: Pain, moderate (4-7) Last Admin: 06/10/18 14:31 Dose: 50 mg - Labs Labs: 06/11/18 13:46 06/10/18 07:48 PT 12.3 SECONDS (9.7-12.2) H 06/01/18 11:06 INR 1.1 06/01/18 11:06 APTT 39 SECONDS (21-34) H 06/01/18 11:06 Attending/Attestation - Attestation I have personally seen and examined this patient.: Yes I have fully participated in the care of the patient.: Yes I have reviewed all pertinent clinical information, including history, physical exam and plan: Yes Notes (Text): 06/13/18 15:01 I have seen and examined patient with GI fellow. No acute events overnight, he is seen resting in bed comfortably. Patient still has not had any bowel movement, though +flatus. He denies nausea, vomiting, fever/chills. Review of vitals from today are normal. Morbid obesity DM / HTN ESRD on HD Sepsis, bacteremia Abdominal pain, SBO - NPO - Continue with IVF hydration, supportive care - Continue with antibiotic therapy as per ID - Awaiting surgical evaluation given findings of SBO. If they agree, would consider starting patient on clear liquids and observing along with abdominal XR tomorrow. - Will continue to monitor patient clinical course
[2018-06-13] MEDS: Meropenem 500 MG in Sodium Chloride 0.9% 100 ML IVPB SCH ×2 (10:25→22:08)
[2018-06-13] MEDS: Pantoprazole 40 mg EC Tab PO SCH (10:28)
[2018-06-13] MEDS: Lactobacillus Acidophilus 500 MU Cap PO SCH ×2 (10:33→17:18)
[2018-06-13] MEDS: Sevelamer Carb 2.4 gm/Packet PO SCH ×3 (10:34→17:19)
[2018-06-13] MEDS: guaiFENesin 100 mg/5 ml Syrup UD PO SCH ×4 (10:34→22:04)
--- NOTE | 2018-06-13 10:40 | CP.PCM.PN ---
Subjective - Date & Time of Evaluation Date of Evaluation: 06/13/18 Time of Evaluation: 10:39 - Subjective Subjective: events noted pt w/ sbo, npo on iv fluids c/o shortness of breath hasnt had bm concerned about getting miralax Objective - Vital Signs/Intake and Output Vital Signs (last 24 hours): Temp Pulse Resp BP Pulse Ox 97.8 F 72 20 110/53 L 100 06/13/18 07:00 06/13/18 07:00 06/13/18 07:00 06/13/18 10:28 06/13/18 07:00 Intake and Output: 06/13/18 06/13/18 06:59 18:59 Intake Total 1360 Balance 1360 - Medications Medications: Current Medications Acetaminophen (Tylenol 325mg Tab) 650 mg PO Q6 PRN PRN Reason: Fever >100.4 F Last Admin: 06/03/18 00:20 Dose: 650 mg Calcium Acetate (Phoslo) 667 mg PO TID [facility] Last Admin: 06/13/18 10:34 Dose: 667 mg Docusate Sodium (Colace) 100 mg PO BID [facility] Last Admin: 06/13/18 10:33 Dose: 100 mg Epoetin Ventura (Procrit) 10,000 unit IV TTS [facility] Last Admin: 06/11/18 14:12 Dose: 10,000 unit Ferric Sodium Gluconate Complex (Ferrlecit) 125 mg IVPB DAILY [facility] Stop: 06/19/18 10:01 Last Admin: 06/12/18 10:51 Dose: 125 mg Furosemide (Lasix) 40 mg PO DAILY [facility] Last Admin: 06/13/18 10:28 Dose: 40 mg Guaifenesin (Robitussin) 100 mg PO QID [facility] Last Admin: 06/13/18 10:34 Dose: Not Given Meropenem 500 mg/ Sodium (Chloride) 100 mls @ 100 mls/hr IVPB Q12 [facility] PRN Reason: Protocol Last Admin: 06/13/18 10:25 Dose: 100 mls/hr Ciprofloxacin (Cipro 400mg/200ml Dsw) 400 mg in 200 mls @ 133 mls/hr IVPB Q24H [facility] PRN Reason: Protocol Last Admin: 06/12/18 17:11 Dose: 133 mls/hr Dextrose/Sodium Chloride (Dextrose 5%/0.45% Ns 1000 Ml) 1,000 mls @ 60 mls/hr IV .[id number] [facility] Last Admin: 06/13/18 02:36 Dose: Not Given Metronidazole (Flagyl) 500 mg in 100 mls @ 100 mls/hr IVPB Q8H [facility] PRN Reason: Protocol Last Admin: 06/13/18 03:36 Dose: 100 mls/hr Insulin Aspart (Novolog) 0 unit SC ACHS [facility] PRN Reason: Protocol Last Admin: 06/13/18 07:35 Dose: Not Given Lactobacillus Acidophilus (Bacid Acidophilus) 1 cap PO BID [facility] Last Admin: 06/13/18 10:33 Dose: 1 cap Methylprednisolone (Solu-Medrol) 125 mg IVP ONCE PRN PRN Reason: Allergy symptoms Morphine Sulfate (Morphine) 6 mg IVP Q4H PRN PRN Reason: Pain, severe (8-10) Last Admin: 06/13/18 10:27 Dose: 6 mg Ondansetron HCl (Zofran Tab) 4 mg PO DAILY [facility] Last Admin: 06/13/18 10:28 Dose: 4 mg Ondansetron HCl (Zofran Inj) 4 mg IVP DAILY@ONCE PRN PRN Reason: Nausea/Vomiting Last Admin: 06/11/18 18:55 Dose: 4 mg Pantoprazole Sodium (Protonix Ec Tab) 40 mg PO DAILY [facility] Last Admin: 06/13/18 10:28 Dose: 40 mg Rosuvastatin Calcium (Crestor) 10 mg PO HS [facility] Last Admin: 06/12/18 22:23 Dose: 10 mg Sevelamer Carbonate (Renvela) 2.4 gm PO TIDCC [facility] Last Admin: 06/13/18 10:34 Dose: 2.4 gm Tramadol HCl (Ultram) 50 mg PO Q8H PRN PRN Reason: Pain, moderate (4-7) Last Admin: 06/10/18 14:31 Dose: 50 mg - Labs Labs: 06/11/18 13:46 06/10/18 07:48 PT 12.3 SECONDS (9.7-12.2) H 06/01/18 11:06 INR 1.1 06/01/18 11:06 APTT 39 SECONDS (21-34) H 06/01/18 11:06 - Constitutional Appears: No Acute Distress (obese), Chronically Ill - Head Exam Head Exam: NORMAL INSPECTION, NORMOCEPHALIC - Eye Exam Eye Exam: Normal appearance, PERRL - ENT Exam ENT Exam: Mucous Membranes Moist, Normal Exam - Neck Exam Neck Exam: Full ROM, Normal Inspection - Respiratory Exam Respiratory Exam: Decreased Breath Sounds, NORMAL BREATHING PATTERN - Cardiovascular Exam Cardiovascular Exam: REGULAR RHYTHM, RRR - GI/Abdominal Exam GI & Abdominal Exam: Distended (obese), Soft - Extremities Exam Extremities Exam: Pedal Edema (chronic venous stasis) - Neurological Exam Neurological Exam: Alert, Awake - Psychiatric Exam Psychiatric exam: Anxious - Skin Skin Exam: Intact, Warm Assessment and Plan (1) AV graft thrombosis Status: Acute (2) Bacteremia due to Gram-negative bacteria Status: Acute (3) Cellulitis of right leg Status: Acute (4) End stage renal disease Status: Acute (5) Hypertensive chronic kidney disease with stage 5 chronic kidney disease or end stage renal disease Status: Acute (6) Morbid obesity Status: Acute - Assessment and Plan (Free Text) Assessment: GI management for sbo maintain antibiotics for bacteremia short hd today for ultrafiltration.
[2018-06-13] MEDS: Ciprofloxacin 400mg/200ml D5W 400 MG/200 ML BAG IVPB SCH (13:03)
--- NOTE | 2018-06-13 14:52 | CP.PCM.PN ---
Subjective - Date & Time of Evaluation Date of Evaluation: 06/13/18 Time of Evaluation: 14:51 - Subjective Subjective: COVERING DR Lucy BUTLER PT ALERT, NO BM. ROS; OTHERWISE NEG. Objective - Vital Signs/Intake and Output Vital Signs (last 24 hours): Temp Pulse Resp BP Pulse Ox 97.8 F 72 20 110/53 L 100 06/13/18 07:00 06/13/18 07:00 06/13/18 07:00 06/13/18 10:28 06/13/18 07:00 Intake and Output: 06/13/18 06/13/18 06:59 18:59 Intake Total 1360 Balance 1360 - Medications Medications: Current Medications Acetaminophen (Tylenol 325mg Tab) 650 mg PO Q6 PRN PRN Reason: Fever >100.4 F Last Admin: 06/03/18 00:20 Dose: 650 mg Calcium Acetate (Phoslo) 667 mg PO TID [facility] Last Admin: 06/13/18 10:34 Dose: 667 mg Docusate Sodium (Colace) 100 mg PO BID [facility] Last Admin: 06/13/18 10:33 Dose: 100 mg Epoetin Ventura (Procrit) 10,000 unit IV TTS [facility] Last Admin: 06/11/18 14:12 Dose: 10,000 unit Ferric Sodium Gluconate Complex (Ferrlecit) 125 mg IVPB DAILY [facility] Stop: 06/19/18 10:01 Last Admin: 06/12/18 10:51 Dose: 125 mg Furosemide (Lasix) 40 mg PO DAILY [facility] Last Admin: 06/13/18 10:28 Dose: 40 mg Guaifenesin (Robitussin) 100 mg PO QID [facility] Last Admin: 06/13/18 10:34 Dose: Not Given Meropenem 500 mg/ Sodium (Chloride) 100 mls @ 100 mls/hr IVPB Q12 [facility] PRN Reason: Protocol Last Admin: 06/13/18 10:25 Dose: 100 mls/hr Ciprofloxacin (Cipro 400mg/200ml Dsw) 400 mg in 200 mls @ 133 mls/hr IVPB Q24H [facility] PRN Reason: Protocol Last Admin: 06/13/18 13:03 Dose: Not Given Dextrose/Sodium Chloride (Dextrose 5%/0.45% Ns 1000 Ml) 1,000 mls @ 60 mls/hr IV .[id number] [facility] Last Admin: 06/13/18 02:36 Dose: Not Given Metronidazole (Flagyl) 500 mg in 100 mls @ 100 mls/hr IVPB Q8H [facility] PRN Reason: Protocol Last Admin: 06/13/18 13:03 Dose: Not Given Insulin Aspart (Novolog) 0 unit SC ACHS [facility] PRN Reason: Protocol Last Admin: 06/13/18 12:47 Dose: Not Given Lactobacillus Acidophilus (Bacid Acidophilus) 1 cap PO BID [facility] Last Admin: 06/13/18 10:33 Dose: 1 cap Morphine Sulfate (Morphine) 6 mg IVP Q4H PRN PRN Reason: Pain, severe (8-10) Last Admin: 06/13/18 10:27 Dose: 6 mg Ondansetron HCl (Zofran Tab) 4 mg PO DAILY [facility] Last Admin: 06/13/18 10:28 Dose: 4 mg Ondansetron HCl (Zofran Inj) 4 mg IVP DAILY@ONCE PRN PRN Reason: Nausea/Vomiting Last Admin: 06/11/18 18:55 Dose: 4 mg Pantoprazole Sodium (Protonix Ec Tab) 40 mg PO DAILY [facility] Last Admin: 06/13/18 10:28 Dose: 40 mg Rosuvastatin Calcium (Crestor) 10 mg PO HS [facility] Last Admin: 06/12/18 22:23 Dose: 10 mg Sevelamer Carbonate (Renvela) 2.4 gm PO TIDCC [facility] Last Admin: 06/13/18 13:03 Dose: Not Given Tramadol HCl (Ultram) 50 mg PO Q8H PRN PRN Reason: Pain, moderate (4-7) Last Admin: 06/10/18 14:31 Dose: 50 mg - Labs Labs: 06/11/18 13:46 06/10/18 07:48 PT 12.3 SECONDS (9.7-12.2) H 06/01/18 11:06 INR 1.1 06/01/18 11:06 APTT 39 SECONDS (21-34) H 06/01/18 11:06 - Constitutional Appears: Chronically Ill - Head Exam Head Exam: ATRAUMATIC, NORMOCEPHALIC - Eye Exam Eye Exam: EOMI, Normal appearance - ENT Exam ENT Exam: Mucous Membranes Moist - Neck Exam Neck Exam: Normal Inspection - Respiratory Exam Respiratory Exam: Decreased Breath Sounds. absent: Respiratory Distress - Cardiovascular Exam Cardiovascular Exam: RRR, +S1, +S2 - GI/Abdominal Exam GI & Abdominal Exam: Soft Additional comments: OBESE - Rectal Exam Rectal Exam: Deferred - Extremities Exam Additional comments: BILAT LYMPHEDEMA CHRONIC CHANGES. LE - Neurological Exam Neurological Exam: Alert, Awake, CN II-XII Intact, Oriented x3 - Psychiatric Exam Psychiatric exam: Normal Mood - Skin Skin Exam: absent: Rash Assessment and Plan (1) COPD exacerbation Status: Acute (2) AV graft thrombosis Status: Acute (3) Bacteremia due to Gram-negative bacteria Status: Acute (4) Cellulitis of right leg Status: Acute (5) ESRD needing dialysis Status: Acute (6) Morbid obesity Status: Acute (7) Anemia Status: Acute (8) Cellulitis Status: Acute (9) Diabetes Status: Acute (10) Hypertension Status: Acute (11) Iron deficiency anemia Status: Acute (12) Lymphedema Status: Acute - Assessment and Plan (Free Text) Assessment: RESP STATUS NO SIG CHANGE., CONT PULM TOILET., NEB BD., MONITOR O2 SAT. CXR REVIEWED., CONT AB PER ID., HD PER RENAL. FOR GI F/U. PROG POOR., DISCUSSED WITH STAFF AT LENGTH AND ID.
[2018-06-13 15:06] LABS: BASO # 0.1 K/uL (0.0-0.2); BASO % 0.5 % (0.0-2.0); EOS # 0.2 K/uL (0.0-0.7); EOS % 1.6 % (0.0-4.0); HEMOGLOBIN 8.4 g/dL (12.0-18.0); LYMPH # 0.6 K/uL (1.0-4.3); LYMPH % 5.9 % (20.0-40.0); MEAN CELL VOLUME 78.1 fL (80.0-94.0); MEAN CORPUSCULAR HEMOGLOBIN 24.8 pg (27.0-31.0); MEAN CORPUSCULAR HGB CONC 31.8 g/dL (33.0-37.0); MEAN PLATELET VOLUME 7.6 fL (7.2-11.7); MONO % 9.8 % (0.0-10.0); NEUT # 8.7 K/uL (1.8-7.0); NEUT % 82.2 % (50.0-75.0); NRBC % 0.2 % (0.0-2.0); PLATELET COUNT 258 K/uL (130-400); RBC 3.38 Mil/uL (4.40-5.90); RED CELL DISTRIBUTION WIDTH 19.6 % (11.5-14.5); WHITE BLOOD COUNT 10.6 K/uL (4.8-10.8)
[2018-06-13 15:23] LABS: ALB/GLOB RATIO 0.7 (1.0-2.1); ALBUMIN 2.9 g/dL (3.5-5.0); CALCIUM 8.4 mg/dl (8.6-10.4)
[2018-06-13 15:37] LABS: ANISOCYTOSIS MODERATE; BANDS 6 % (0-2); EOSINOPHIL 1 % (0-4); LYMPHOCYTE 4 % (20-40); MONOCYTE 13 % (0-10); NEUTROPHIL 76 % (50-75); PLATELET ESTIMATE NORMAL (NORMAL); TOTAL CELLS COUNTED 100
[2018-06-13 15:38] LABS: HYPOCHROMIC SLIGHT; TARGET CELLS SLIGHT
--- NOTE | 2018-06-13 17:53 | CP.PCM.PN ---
Subjective - Date & Time of Evaluation Date of Evaluation: 06/13/18 Time of Evaluation: 17:51 - Subjective Subjective: General Surgery Progress Note for Dr. Chiu 52M seen and evaluated at bedside while getting hemodialysis this afternoon. Pt is not complaining of any abdominal pain. Has not had a BM or passing flatus. Denies n/v/d. Objective - Vital Signs/Intake and Output Vital Signs (last 24 hours): Temp Pulse Resp BP Pulse Ox 97.3 F L 77 20 93/67 L 99 06/13/18 17:05 06/13/18 17:05 06/13/18 17:05 06/13/18 17:05 06/13/18 17:05 Intake and Output: 06/13/18 06/13/18 06:59 18:59 Intake Total 1360 Balance 1360 - Medications Medications: Current Medications Acetaminophen (Tylenol 325mg Tab) 650 mg PO Q6 PRN PRN Reason: Fever >100.4 F Last Admin: 06/03/18 00:20 Dose: 650 mg Calcium Acetate (Phoslo) 667 mg PO TID [facility] Last Admin: 06/13/18 17:19 Dose: Not Given Docusate Sodium (Colace) 100 mg PO BID [facility] Last Admin: 06/13/18 17:18 Dose: Not Given Epoetin Ventura (Procrit) 10,000 unit IV TTS [facility] Last Admin: 06/11/18 14:12 Dose: 10,000 unit Ferric Sodium Gluconate Complex (Ferrlecit) 125 mg IVPB DAILY [facility] Stop: 06/19/18 10:01 Last Admin: 06/12/18 10:51 Dose: 125 mg Furosemide (Lasix) 40 mg PO DAILY [facility] Last Admin: 06/13/18 10:28 Dose: 40 mg Guaifenesin (Robitussin) 100 mg PO QID [facility] Last Admin: 06/13/18 17:19 Dose: Not Given Meropenem 500 mg/ Sodium (Chloride) 100 mls @ 100 mls/hr IVPB Q12 [facility]OSSIE PRN Reason: Protocol Last Admin: 06/13/18 10:25 Dose: 100 mls/hr Ciprofloxacin (Cipro 400mg/200ml Dsw) 400 mg in 200 mls @ 133 mls/hr IVPB Q24H [facility] PRN Reason: Protocol Last Admin: 06/13/18 13:03 Dose: Not Given Dextrose/Sodium Chloride (Dextrose 5%/0.45% Ns 1000 Ml) 1,000 mls @ 60 mls/hr IV .[id number] [facility] Last Admin: 06/13/18 02:36 Dose: Not Given Metronidazole (Flagyl) 500 mg in 100 mls @ 100 mls/hr IVPB Q8H [facility] PRN Reason: Protocol Last Admin: 06/13/18 13:03 Dose: Not Given Insulin Aspart (Novolog) 0 unit SC ACHS [facility] PRN Reason: Protocol Last Admin: 06/13/18 17:22 Dose: Not Given Lactobacillus Acidophilus (Bacid Acidophilus) 1 cap PO BID [facility] Last Admin: 06/13/18 17:18 Dose: Not Given Morphine Sulfate (Morphine) 6 mg IVP Q4H PRN PRN Reason: Pain, severe (8-10) Last Admin: 06/13/18 10:27 Dose: 6 mg Ondansetron HCl (Zofran Tab) 4 mg PO DAILY [facility] Last Admin: 06/13/18 10:28 Dose: 4 mg Ondansetron HCl (Zofran Inj) 4 mg IVP DAILY@ONCE PRN PRN Reason: Nausea/Vomiting Last Admin: 06/11/18 18:55 Dose: 4 mg Pantoprazole Sodium (Protonix Ec Tab) 40 mg PO DAILY [facility] Last Admin: 06/13/18 10:28 Dose: 40 mg Rosuvastatin Calcium (Crestor) 10 mg PO HS [facility] Last Admin: 06/12/18 22:23 Dose: 10 mg Sevelamer Carbonate (Renvela) 2.4 gm PO TIDCC [facility] Last Admin: 06/13/18 17:19 Dose: Not Given Tramadol HCl (Ultram) 50 mg PO Q8H PRN PRN Reason: Pain, moderate (4-7) Last Admin: 06/10/18 14:31 Dose: 50 mg - Labs Labs: 06/13/18 14:57 06/13/18 14:57 PT 12.3 SECONDS (9.7-12.2) H 06/01/18 11:06 INR 1.1 06/01/18 11:06 APTT 39 SECONDS (21-34) H 06/01/18 11:06 - Constitutional Appears: Well, No Acute Distress - Head Exam Head Exam: ATRAUMATIC, NORMAL INSPECTION, NORMOCEPHALIC - Eye Exam Eye Exam: EOMI, Normal appearance - ENT Exam ENT Exam: Mucous Membranes Dry - Respiratory Exam Respiratory Exam: Clear to Ausculation Bilateral, NORMAL BREATHING PATTERN - Cardiovascular Exam Cardiovascular Exam: REGULAR RHYTHM, +S1, +S2. absent: Murmur - GI/Abdominal Exam GI & Abdominal Exam: Soft, Normal Bowel Sounds. absent: Distended, Tenderness - Rectal Exam Rectal Exam: Deferred - Neurological Exam Neurological Exam: Alert, Awake - Psychiatric Exam Psychiatric exam: Normal Affect, Normal Mood - Skin Skin Exam: Dry, Intact, Normal Color, Warm Assessment and Plan - Assessment and Plan (Free Text) Assessment: 52M w/ SBO as evidenced by CT of abd/pel 06/11 Plan: continue conservative management - NPO, IVF will monitor bowel function Soap suds enema further recs per Dr. Apple Mac PGY1
[2018-06-13] MEDS: Ferric Sodium Gluconat Complex 62.5 mg/5 ml Vial IVPB SCH (17:58)
--- NOTE | 2018-06-13 18:49 | CP.PCM.PN ---
Subjective - Date & Time of Evaluation Date of Evaluation: 06/13/18 Time of Evaluation: 02:15 - Subjective Subjective: dictated Objective - Vital Signs/Intake and Output Vital Signs (last 24 hours): Temp Pulse Resp BP Pulse Ox 97.5 F L 75 20 102/64 93 L 06/13/18 17:53 06/13/18 17:53 06/13/18 17:53 06/13/18 17:53 06/13/18 17:53 Intake and Output: 06/13/18 06/13/18 06:59 18:59 Intake Total 1360 Balance 1360 - Medications Medications: Current Medications Acetaminophen (Tylenol 325mg Tab) 650 mg PO Q6 PRN PRN Reason: Fever >100.4 F Last Admin: 06/03/18 00:20 Dose: 650 mg Calcium Acetate (Phoslo) 667 mg PO TID [facility] Last Admin: 06/13/18 18:13 Dose: Not Given Docusate Sodium (Colace) 100 mg PO BID [facility] Last Admin: 06/13/18 17:18 Dose: Not Given Epoetin Ventura (Procrit) 10,000 unit IV TTS [facility] Last Admin: 06/11/18 14:12 Dose: 10,000 unit Ferric Sodium Gluconate Complex (Ferrlecit) 125 mg IVPB DAILY [facility] Stop: 06/19/18 10:01 Last Admin: 06/13/18 17:58 Dose: 125 mg Furosemide (Lasix) 40 mg PO DAILY [facility] Last Admin: 06/13/18 10:28 Dose: 40 mg Guaifenesin (Robitussin) 100 mg PO QID [facility] Last Admin: 06/13/18 18:06 Dose: Not Given Meropenem 500 mg/ Sodium (Chloride) 100 mls @ 100 mls/hr IVPB Q12 [facility] PRN Reason: Protocol Last Admin: 06/13/18 10:25 Dose: 100 mls/hr Ciprofloxacin (Cipro 400mg/200ml Dsw) 400 mg in 200 mls @ 133 mls/hr IVPB Q24H [facility] PRN Reason: Protocol Last Admin: 06/13/18 13:03 Dose: Not Given Dextrose/Sodium Chloride (Dextrose 5%/0.45% Ns 1000 Ml) 1,000 mls @ 60 mls/hr IV .[id number] [facility] Last Admin: 06/13/18 18:06 Dose: 60 mls/hr Metronidazole (Flagyl) 500 mg in 100 mls @ 100 mls/hr IVPB Q8H [facility] PRN Reason: Protocol Last Admin: 06/13/18 13:03 Dose: Not Given Insulin Aspart (Novolog) 0 unit SC ACHS [facility] PRN Reason: Protocol Last Admin: 06/13/18 17:22 Dose: Not Given Lactobacillus Acidophilus (Bacid Acidophilus) 1 cap PO BID [facility] Last Admin: 06/13/18 17:18 Dose: Not Given Morphine Sulfate (Morphine) 6 mg IVP Q4H PRN PRN Reason: Pain, severe (8-10) Last Admin: 06/13/18 17:59 Dose: 6 mg Ondansetron HCl (Zofran Tab) 4 mg PO DAILY [facility] Last Admin: 06/13/18 10:28 Dose: 4 mg Ondansetron HCl (Zofran Inj) 4 mg IVP DAILY@ONCE PRN PRN Reason: Nausea/Vomiting Last Admin: 06/11/18 18:55 Dose: 4 mg Pantoprazole Sodium (Protonix Ec Tab) 40 mg PO DAILY [facility] Last Admin: 06/13/18 10:28 Dose: 40 mg Rosuvastatin Calcium (Crestor) 10 mg PO HS [facility] Last Admin: 06/12/18 22:23 Dose: 10 mg Sevelamer Carbonate (Renvela) 2.4 gm PO TIDCC [facility] Last Admin: 06/13/18 17:19 Dose: Not Given Tramadol HCl (Ultram) 50 mg PO Q8H PRN PRN Reason: Pain, moderate (4-7) Last Admin: 06/10/18 14:31 Dose: 50 mg - Labs Labs: 06/13/18 14:57 06/13/18 14:57 PT 12.3 SECONDS (9.7-12.2) H 06/01/18 11:06 INR 1.1 06/01/18 11:06 APTT 39 SECONDS (21-34) H 06/01/18 11:06
--- NOTE | 2018-06-14 00:09 | PN ---
DATE: 06/13/2018 SUBJECTIVE: The patient was seen today just as he was going to be picked up for his dialysis. The patient states that he thinks he is a little better. He wanted to eat, but he was n.p.o. He had some obstruction on the CAT scan yesterday, hence he was placed on IV fluids by GI and his white count was high. He also has high procalcitonin. We will repeat. I was still waiting for the CBC and while I am dictating, the CBC is back and it is much better. He denied any nausea and vomiting. He said he has not had BM, but he thought he was passing gas. He is a huge male. PHYSICAL EXAMINATION: VITAL SIGNS: His T-max was 97.3, pulse 75, blood pressure of 93/67, respirations are 20. HEENT: Head is atraumatic and normocephalic. He is morbidly obese. NECK: Supple. LUNGS: Clear. Decreased breath sounds bilaterally. HEART: S1 and S2 is regular. ABDOMEN: Remain distended. Bowel sounds were not present. EXTREMITIES: Have bilateral lymphangitis, but no warmth noted except for the CAT scan, which read that there was cellulitis on the back. I told him that back, but it is just not feasible at this time being with distended abdomen at this time. He had a CAT scan yesterday, showed multiple dilated fluid-filled loops of small bowel in transition zone in the pelvis. There is some small bowel obstruction prominent retained gas and stool in the colon. ASSESSMENT AND PLAN: So at this time, he has small bowel obstruction. He is still septic with the high procalcitonin level and high white blood cell count. He has Acinetobacter bacteremia. Blood cultures were done on 06/07/2018. At this time, we will continue with the present antibiotics. We will get a procalcitonin level tomorrow and actually we will hold off on the procalcitonin at this time. He got a vancomycin dose yesterday. We will get a vancomycin random level tomorrow. Continue the Flagyl and meropenem, and probably if white count remains okay, then we can probably discontinue Cipro. So we will discontinue Cipro and continue Merrem and vancomycin and Flagyl for now and this I will do if CBC remains normal tomorrow. We will follow. He has small bowel obstruction. He has Acinetobacter. He came in with cellulitis. He has clotted graft and he has new dialysis catheter at this time and has morbid obesity and is diabetic. Alec Boucher MD
[2018-06-14] MEDS: metroNIDAZOLE IV 500 mg/100 ml 500 MG/100 ML BAG IVPB SCH ×3 (04:17→19:30)
[2018-06-14] MEDS: Morphine 4 MG/ML VIAL IVP PRN ×2 (04:18→16:07)
--- NOTE | 2018-06-14 06:10 | CP.PCM.PN ---
<Mateusz Gill - Last Filed: 06/14/18 07:56> Subjective - Date & Time of Evaluation Date of Evaluation: 06/14/18 Time of Evaluation: 06:07 - Subjective Subjective: GI Fellow PGY4, progress note. Patient seen and examined at bedside. No acute overnight events. BP a little low lastnight. Currently NPO with IVF. No BMs but feels like he needs to have one. Agreeable to soap suds enema. 12pt ROS completed and negative except for above findings. Objective - Vital Signs/Intake and Output Vital Signs (last 24 hours): Temp Pulse Resp BP Pulse Ox 97.7 F 71 20 90/55 L 99 06/13/18 23:33 06/13/18 23:33 06/13/18 23:33 06/13/18 23:33 06/13/18 23:33 - Medications Medications: Current Medications Acetaminophen (Tylenol 325mg Tab) 650 mg PO Q6 PRN PRN Reason: Fever >100.4 F Last Admin: 06/03/18 00:20 Dose: 650 mg Calcium Acetate (Phoslo) 667 mg PO TID [facility] Last Admin: 06/13/18 18:13 Dose: Not Given Docusate Sodium (Colace) 100 mg PO BID [facility] Last Admin: 06/13/18 17:18 Dose: Not Given Epoetin Ventura (Procrit) 10,000 unit IV TTS [facility] Last Admin: 06/11/18 14:12 Dose: 10,000 unit Ferric Sodium Gluconate Complex (Ferrlecit) 125 mg IVPB DAILY [facility] Stop: 06/19/18 10:01 Last Admin: 06/13/18 17:58 Dose: 125 mg Furosemide (Lasix) 40 mg PO DAILY [facility] Last Admin: 06/13/18 10:28 Dose: 40 mg Guaifenesin (Robitussin) 100 mg PO QID [facility] Last Admin: 06/13/18 22:04 Dose: 100 mg Meropenem 500 mg/ Sodium (Chloride) 100 mls @ 100 mls/hr IVPB Q12 [facility] PRN Reason: Protocol Last Admin: 06/13/18 22:08 Dose: 100 mls/hr Dextrose/Sodium Chloride (Dextrose 5%/0.45% Ns 1000 Ml) 1,000 mls @ 60 mls/hr IV .[id number] [facility] Last Admin: 06/13/18 18:06 Dose: 60 mls/hr Metronidazole (Flagyl) 500 mg in 100 mls @ 100 mls/hr IVPB Q8H [facility] PRN Reason: Protocol Last Admin: 06/14/18 04:17 Dose: 100 mls/hr Insulin Aspart (Novolog) 0 unit SC ACHS [facility] PRN Reason: Protocol Last Admin: 06/13/18 21:51 Dose: Not Given Lactobacillus Acidophilus (Bacid Acidophilus) 1 cap PO BID [facility] Last Admin: 06/13/18 17:18 Dose: Not Given Morphine Sulfate (Morphine) 6 mg IVP Q4H PRN PRN Reason: Pain, severe (8-10) Last Admin: 06/14/18 04:18 Dose: 6 mg Ondansetron HCl (Zofran Tab) 4 mg PO DAILY [facility] Last Admin: 06/13/18 10:28 Dose: 4 mg Ondansetron HCl (Zofran Inj) 4 mg IVP DAILY@ONCE PRN PRN Reason: Nausea/Vomiting Last Admin: 06/11/18 18:55 Dose: 4 mg Pantoprazole Sodium (Protonix Ec Tab) 40 mg PO DAILY [facility] Last Admin: 06/13/18 10:28 Dose: 40 mg Rosuvastatin Calcium (Crestor) 10 mg PO HS [facility] Last Admin: 06/13/18 22:03 Dose: 10 mg Sevelamer Carbonate (Renvela) 2.4 gm PO TIDCC [facility] Last Admin: 06/13/18 17:19 Dose: Not Given Tramadol HCl (Ultram) 50 mg PO Q8H PRN PRN Reason: Pain, moderate (4-7) Last Admin: 06/10/18 14:31 Dose: 50 mg - Labs Labs: 06/13/18 14:57 06/13/18 14:57 PT 12.3 SECONDS (9.7-12.2) H 06/01/18 11:06 INR 1.1 06/01/18 11:06 APTT 39 SECONDS (21-34) H 06/01/18 11:06 - Constitutional Appears: Non-toxic, No Acute Distress, Chronically Ill - Head Exam Head Exam: ATRAUMATIC, NORMAL INSPECTION, NORMOCEPHALIC - Eye Exam Eye Exam: PERRL. absent: Scleral icterus - ENT Exam ENT Exam: Mucous Membranes Dry, Normal Exam - Respiratory Exam Respiratory Exam: Clear to Ausculation Bilateral, NORMAL BREATHING PATTERN. absent: Wheezes - Cardiovascular Exam Cardiovascular Exam: REGULAR RHYTHM, +S1, +S2 - GI/Abdominal Exam GI & Abdominal Exam: Soft, Normal Bowel Sounds. absent: Tenderness - Extremities Exam Extremities Exam: Pedal Edema. absent: Normal Inspection - Neurological Exam Neurological Exam: Alert, Awake, Oriented x3 - Psychiatric Exam Psychiatric exam: Agitated, Normal Mood. absent: Normal Affect - Skin Skin Exam: Dry, Intact, Warm Assessment and Plan - Assessment and Plan (Free Text) Assessment: 52M with metabolic syndrome, ESRD on HD presenting with sepsis and developed SBO. #SBO #Sepsis, bacteremia #Asymptomatic cholelithiasis #hepatosteatosis #Morbid obesity #DM #HTN #ESRD on HD #Chronic lower extremity lymphedema Plan: - CT findings reviewed and abnormal findings noted for SBO, cholelithiasis and hepatosteatosis. - NPO except for ice chips now, okay to start liquid diet when having BMs. - Continue gentle IVF hydration therapy, supportive care - Anti-emetic therapy PRN - Continue with antibiotic therapy as per ID - Follow up surgical recommendations regarding SBO. - Enema today. - Will continue to monitor patient clinical course <Vitaliy Cordero - Last Filed: 06/14/18 08:24> Objective - Vital Signs/Intake and Output Vital Signs (last 24 hours): Temp Pulse Resp BP Pulse Ox 97.5 F L 71 20 106/61 95 06/14/18 08:17 06/14/18 08:17 06/14/18 08:17 06/14/18 08:17 06/14/18 08:17 - Medications Medications: Current Medications Acetaminophen (Tylenol 325mg Tab) 650 mg PO Q6 PRN PRN Reason: Fever >100.4 F Last Admin: 06/03/18 00:20 Dose: 650 mg Calcium Acetate (Phoslo) 667 mg PO TID [facility] Last Admin: 06/13/18 18:13 Dose: Not Given Docusate Sodium (Colace) 100 mg PO BID [facility] Last Admin: 06/13/18 17:18 Dose: Not Given Epoetin Ventura (Procrit) 10,000 unit IV TTS [facility] Last Admin: 06/11/18 14:12 Dose: 10,000 unit Ferric Sodium Gluconate Complex (Ferrlecit) 125 mg IVPB DAILY [facility] Stop: 06/19/18 10:01 Last Admin: 06/13/18 17:58 Dose: 125 mg Furosemide (Lasix) 40 mg PO DAILY [facility] Last Admin: 06/13/18 10:28 Dose: 40 mg Guaifenesin (Robitussin) 100 mg PO QID [facility] Last Admin: 06/13/18 22:04 Dose: 100 mg Meropenem 500 mg/ Sodium (Chloride) 100 mls @ 100 mls/hr IVPB Q12 [facility] PRN Reason: Protocol Last Admin: 06/13/18 22:08 Dose: 100 mls/hr Dextrose/Sodium Chloride (Dextrose 5%/0.45% Ns 1000 Ml) 1,000 mls @ 60 mls/hr IV .[id number] [facility] Last Admin: 06/13/18 18:06 Dose: 60 mls/hr Metronidazole (Flagyl) 500 mg in 100 mls @ 100 mls/hr IVPB Q8H [facility] PRN Reason: Protocol Last Admin: 06/14/18 04:17 Dose: 100 mls/hr Insulin Aspart (Novolog) 0 unit SC ACHS [facility] PRN Reason: Protocol Last Admin: 06/14/18 07:35 Dose: Not Given Lactobacillus Acidophilus (Bacid Acidophilus) 1 cap PO BID [facility] Last Admin: 06/13/18 17:18 Dose: Not Given Morphine Sulfate (Morphine) 6 mg IVP Q4H PRN PRN Reason: Pain, severe (8-10) Last Admin: 06/14/18 04:18 Dose: 6 mg Ondansetron HCl (Zofran Tab) 4 mg PO DAILY [facility] Last Admin: 06/13/18 10:28 Dose: 4 mg Ondansetron HCl (Zofran Inj) 4 mg IVP DAILY@ONCE PRN PRN Reason: Nausea/Vomiting Last Admin: 06/11/18 18:55 Dose: 4 mg Pantoprazole Sodium (Protonix Ec Tab) 40 mg PO DAILY [facility] Last Admin: 06/13/18 10:28 Dose: 40 mg Rosuvastatin Calcium (Crestor) 10 mg PO HS [facility] Last Admin: 06/13/18 22:03 Dose: 10 mg Sevelamer Carbonate (Renvela) 2.4 gm PO TIDCC [facility] Last Admin: 06/13/18 17:19 Dose: Not Given Tramadol HCl (Ultram) 50 mg PO Q8H PRN PRN Reason: Pain, moderate (4-7) Last Admin: 06/10/18 14:31 Dose: 50 mg - Labs Labs: 06/13/18 14:57 06/13/18 14:57 PT 12.3 SECONDS (9.7-12.2) H 06/01/18 11:06 INR 1.1 06/01/18 11:06 APTT 39 SECONDS (21-34) H 06/01/18 11:06 Attending/Attestation - Attestation I have personally seen and examined this patient.: Yes I have fully participated in the care of the patient.: Yes I have reviewed all pertinent clinical information, including history, physical exam and plan: Yes Notes (Text): 06/14/18 08:21 I have seen and examined patient with GI fellow. No acute events overnight, no bowel movements, +flatus. He denies abdominal pain, nausea, vomiting, fever/ chills. Complains of thirst and asking for diet to be advanced. Morbid obesity ESRD on HD Chronic LE lymphedema Sepsis, bacteremia DM / HTN Abdominal pain, small bowel obstruction - NPO - Administer enema today, if patient begins having bowel movements, from GI perspective would be ok to initiate clear liquids - Follow up surgical recommendations - Continue with IVF hydration therapy - Continue with antibiotic therapy as per ID - Ideally would favor repeat imaging, though portable abdominal XR will likely be poor quality given patient body habitus. Will continue to monitor clinical course.
--- NOTE | 2018-06-14 06:57 | CP.PCM.PN ---
Subjective - Date & Time of Evaluation Date of Evaluation: 06/14/18 Time of Evaluation: 07:00 - Subjective Subjective: Patient seen and examined. No acute events over night. Reports passing flatus. Denies n/v. Objective - Vital Signs/Intake and Output Vital Signs (last 24 hours): Temp Pulse Resp BP Pulse Ox 97.7 F 71 20 90/55 L 99 06/13/18 23:33 06/13/18 23:33 06/13/18 23:33 06/13/18 23:33 06/13/18 23:33 - Medications Medications: Current Medications Acetaminophen (Tylenol 325mg Tab) 650 mg PO Q6 PRN PRN Reason: Fever >100.4 F Last Admin: 06/03/18 00:20 Dose: 650 mg Calcium Acetate (Phoslo) 667 mg PO TID [facility] Last Admin: 06/13/18 18:13 Dose: Not Given Docusate Sodium (Colace) 100 mg PO BID [facility] Last Admin: 06/13/18 17:18 Dose: Not Given Epoetin Ventura (Procrit) 10,000 unit IV TTS [facility] Last Admin: 06/11/18 14:12 Dose: 10,000 unit Ferric Sodium Gluconate Complex (Ferrlecit) 125 mg IVPB DAILY [facility] Stop: 06/19/18 10:01 Last Admin: 06/13/18 17:58 Dose: 125 mg Furosemide (Lasix) 40 mg PO DAILY [facility] Last Admin: 06/13/18 10:28 Dose: 40 mg Guaifenesin (Robitussin) 100 mg PO QID [facility] Last Admin: 06/13/18 22:04 Dose: 100 mg Meropenem 500 mg/ Sodium (Chloride) 100 mls @ 100 mls/hr IVPB Q12 [facility] PRN Reason: Protocol Last Admin: 06/13/18 22:08 Dose: 100 mls/hr Dextrose/Sodium Chloride (Dextrose 5%/0.45% Ns 1000 Ml) 1,000 mls @ 60 mls/hr IV .[id number] [facility] Last Admin: 06/13/18 18:06 Dose: 60 mls/hr Metronidazole (Flagyl) 500 mg in 100 mls @ 100 mls/hr IVPB Q8H [facility] PRN Reason: Protocol Last Admin: 06/14/18 04:17 Dose: 100 mls/hr Insulin Aspart (Novolog) 0 unit SC ACHS [facility] PRN Reason: Protocol Last Admin: 06/13/18 21:51 Dose: Not Given Lactobacillus Acidophilus (Bacid Acidophilus) 1 cap PO BID [facility] Last Admin: 06/13/18 17:18 Dose: Not Given Morphine Sulfate (Morphine) 6 mg IVP Q4H PRN PRN Reason: Pain, severe (8-10) Last Admin: 06/14/18 04:18 Dose: 6 mg Ondansetron HCl (Zofran Tab) 4 mg PO DAILY [facility] Last Admin: 06/13/18 10:28 Dose: 4 mg Ondansetron HCl (Zofran Inj) 4 mg IVP DAILY@ONCE PRN PRN Reason: Nausea/Vomiting Last Admin: 06/11/18 18:55 Dose: 4 mg Pantoprazole Sodium (Protonix Ec Tab) 40 mg PO DAILY [facility] Last Admin: 06/13/18 10:28 Dose: 40 mg Rosuvastatin Calcium (Crestor) 10 mg PO HS [facility] Last Admin: 06/13/18 22:03 Dose: 10 mg Sevelamer Carbonate (Renvela) 2.4 gm PO TIDCC [facility] Last Admin: 06/13/18 17:19 Dose: Not Given Tramadol HCl (Ultram) 50 mg PO Q8H PRN PRN Reason: Pain, moderate (4-7) Last Admin: 06/10/18 14:31 Dose: 50 mg - Labs Labs: 06/13/18 14:57 06/13/18 14:57 PT 12.3 SECONDS (9.7-12.2) H 06/01/18 11:06 INR 1.1 06/01/18 11:06 APTT 39 SECONDS (21-34) H 06/01/18 11:06 - Constitutional Appears: Non-toxic - Eye Exam Eye Exam: Normal appearance - Cardiovascular Exam Cardiovascular Exam: +S1, +S2 - GI/Abdominal Exam GI & Abdominal Exam: Soft. absent: Tenderness - Neurological Exam Neurological Exam: Alert, Awake, Oriented x3 - Psychiatric Exam Psychiatric exam: Normal Mood - Skin Skin Exam: Dry, Intact, Warm Assessment and Plan - Assessment and Plan (Free Text) Assessment: 52M with SBO Plan: NPO IVF Monitor bowel function No acute surgical intervention at this present time Will follow Sarwat PGY3 Further recs per Dr. Chiu
[2018-06-14] MEDS: (Novolog) Insulin Aspart, Recombinant 100 u/ml 10 ml vial SC SCH ×4 (07:35→21:57)
[2018-06-14] MEDS: Sevelamer Carb 2.4 gm/Packet PO SCH ×3 (08:50→17:50)
[2018-06-14] MEDS: Lactobacillus Acidophilus 500 MU Cap PO SCH ×2 (09:36→18:32)
[2018-06-14] MEDS: Pantoprazole 40 mg EC Tab PO SCH (09:37)
[2018-06-14] MEDS: guaiFENesin 100 mg/5 ml Syrup UD PO SCH ×4 (09:37→21:47)
[2018-06-14] MEDS: Dextrose 5%/0.45% NS 1,000 ML IV SCH (10:45)
[2018-06-14 11:24] LABS: BASO % 0.4 % (0.0-2.0); EOS # 0.2 K/uL (0.0-0.7); EOS % 1.8 % (0.0-4.0); HEMOGLOBIN 8.4 g/dL (12.0-18.0); LYMPH # 0.8 K/uL (1.0-4.3); LYMPH % 8.4 % (20.0-40.0); MEAN CELL VOLUME 77.6 fL (80.0-94.0); MEAN CORPUSCULAR HEMOGLOBIN 24.6 pg (27.0-31.0); MEAN CORPUSCULAR HGB CONC 31.8 g/dL (33.0-37.0); MEAN PLATELET VOLUME 7.6 fL (7.2-11.7); MONO # 1.3 K/uL (0.0-0.8); MONO % 14.1 % (0.0-10.0); NEUT # 6.9 K/uL (1.8-7.0); NEUT % 75.3 % (50.0-75.0); NRBC % 0.3 % (0.0-2.0); PLATELET COUNT 214 K/uL (130-400); RED CELL DISTRIBUTION WIDTH 19.2 % (11.5-14.5); WHITE BLOOD COUNT 9.1 K/uL (4.8-10.8)
[2018-06-14] MEDS: Meropenem 500 MG in Sodium Chloride 0.9% 100 ML IVPB SCH ×2 (11:31→21:46)
[2018-06-14 11:41] LABS: ALB/GLOB RATIO 0.7 (1.0-2.1); ALBUMIN 2.8 g/dL (3.5-5.0); CALCIUM 8.3 mg/dl (8.6-10.4)
--- NOTE | 2018-06-14 11:49 | CP.PCM.PN ---
Subjective - Date & Time of Evaluation Date of Evaluation: 06/14/18 Time of Evaluation: 11:46 - Subjective Subjective: COVERING DR Lucy BUTLER.\ PT ALERT, NO CHANGE SOB., DID NOT GET NEB TX. ON HD NOW., ROS ; OTHERWISE NEG. Objective - Vital Signs/Intake and Output Vital Signs (last 24 hours): Temp Pulse Resp BP Pulse Ox 97.5 F L 71 20 106/61 95 06/14/18 08:17 06/14/18 08:17 06/14/18 08:17 06/14/18 08:17 06/14/18 08:17 - Medications Medications: Current Medications Acetaminophen (Tylenol 325mg Tab) 650 mg PO Q6 PRN PRN Reason: Fever >100.4 F Last Admin: 06/03/18 00:20 Dose: 650 mg Calcium Acetate (Phoslo) 667 mg PO TID [facility] Last Admin: 06/14/18 09:37 Dose: Not Given Docusate Sodium (Colace) 100 mg PO BID [facility] Last Admin: 06/14/18 09:36 Dose: Not Given Epoetin Ventura (Procrit) 10,000 unit IV TTS [facility] Last Admin: 06/11/18 14:12 Dose: 10,000 unit Ferric Sodium Gluconate Complex (Ferrlecit) 125 mg IVPB DAILY [facility] Stop: 06/19/18 10:01 Last Admin: 06/13/18 17:58 Dose: 125 mg Furosemide (Lasix) 40 mg PO DAILY [facility] Last Admin: 06/14/18 09:37 Dose: Not Given Guaifenesin (Robitussin) 100 mg PO QID [facility] Last Admin: 06/14/18 09:37 Dose: Not Given Meropenem 500 mg/ Sodium (Chloride) 100 mls @ 100 mls/hr IVPB Q12 [facility] PRN Reason: Protocol Last Admin: 06/14/18 11:31 Dose: Not Given Dextrose/Sodium Chloride (Dextrose 5%/0.45% Ns 1000 Ml) 1,000 mls @ 60 mls/hr IV .[id number] [facility] Last Admin: 06/14/18 10:45 Dose: Not Given Metronidazole (Flagyl) 500 mg in 100 mls @ 100 mls/hr IVPB Q8H [facility] PRN Reason: Protocol Last Admin: 06/14/18 11:30 Dose: Not Given Insulin Aspart (Novolog) 0 unit SC ACHS [facility] PRN Reason: Protocol Last Admin: 06/14/18 11:32 Dose: Not Given Lactobacillus Acidophilus (Bacid Acidophilus) 1 cap PO BID [facility] Last Admin: 06/14/18 09:36 Dose: Not Given Morphine Sulfate (Morphine) 6 mg IVP Q4H PRN PRN Reason: Pain, severe (8-10) Last Admin: 06/14/18 04:18 Dose: 6 mg Ondansetron HCl (Zofran Tab) 4 mg PO DAILY [facility] Last Admin: 06/14/18 09:38 Dose: Not Given Ondansetron HCl (Zofran Inj) 4 mg IVP DAILY@ONCE PRN PRN Reason: Nausea/Vomiting Last Admin: 06/11/18 18:55 Dose: 4 mg Pantoprazole Sodium (Protonix Ec Tab) 40 mg PO DAILY [facility] Last Admin: 06/14/18 09:37 Dose: Not Given Rosuvastatin Calcium (Crestor) 10 mg PO HS [facility] Last Admin: 06/13/18 22:03 Dose: 10 mg Sevelamer Carbonate (Renvela) 2.4 gm PO TIDCC [facility] Last Admin: 06/14/18 08:50 Dose: Not Given Tramadol HCl (Ultram) 50 mg PO Q8H PRN PRN Reason: Pain, moderate (4-7) Last Admin: 06/10/18 14:31 Dose: 50 mg - Labs Labs: 06/14/18 11:12 06/14/18 11:12 PT 12.3 SECONDS (9.7-12.2) H 06/01/18 11:06 INR 1.1 06/01/18 11:06 APTT 39 SECONDS (21-34) H 06/01/18 11:06 - Constitutional Appears: No Acute Distress, Chronically Ill - Head Exam Head Exam: ATRAUMATIC, NORMOCEPHALIC - Eye Exam Eye Exam: EOMI, Normal appearance - ENT Exam ENT Exam: Mucous Membranes Dry - Neck Exam Neck Exam: Normal Inspection - Respiratory Exam Respiratory Exam: Decreased Breath Sounds. absent: Wheezes, Respiratory Distress - Cardiovascular Exam Cardiovascular Exam: RRR, +S1, +S2 - GI/Abdominal Exam GI & Abdominal Exam: Soft Additional comments: OBESE - Rectal Exam Rectal Exam: Deferred - Extremities Exam Additional comments: LE LYMPHEDEMA BILAT. - Neurological Exam Neurological Exam: Alert, Awake, CN II-XII Intact, Oriented x3 - Psychiatric Exam Psychiatric exam: Normal Mood - Skin Skin Exam: absent: Rash Assessment and Plan (1) COPD exacerbation Status: Acute (2) AV graft thrombosis Status: Acute (3) Bacteremia due to Gram-negative bacteria Status: Acute (4) Cellulitis of right leg Status: Acute (5) ESRD needing dialysis Status: Acute (6) Morbid obesity Status: Acute (7) Anemia Status: Acute (8) Cellulitis Status: Acute (9) Diabetes Status: Acute (10) Hypertension Status: Acute (11) Iron deficiency anemia Status: Acute (12) Lymphedema Status: Acute - Assessment and Plan (Free Text) Assessment: RESP STATUS NO SIG CHANGE., CONT NEB BD., MONITOR O2 SAT. CXR REVIEWED. NPO PER SURG. CXR REVIEWED. HD IN PROGRESS. PROG POOR. DISCUSSED WITH STAFF.
[2018-06-14 11:54] LABS: BANDS 2 % (0-2); BASOPHIL 1 % (0-2); LYMPHOCYTE 10 % (20-40); METAMYELOCYTE 1 % (0-0); MONOCYTE 14 % (0-10); MYELOCYTE 1 % (0-0); NEUTROPHIL 71 % (50-75); NUCLEATED RED BLOOD CELL 1 % (0-0); PLATELET ESTIMATE NORMAL (NORMAL); TOTAL CELLS COUNTED 100
[2018-06-14 11:55] LABS: ANISOCYTOSIS MODERATE; HYPOCHROMIC SLIGHT; OVALOCYTES SLIGHT; POIKILOCYTOSIS SLIGHT; TARGET CELLS SLIGHT
[2018-06-14] MEDS: Ferric Sodium Gluconat Complex 62.5 mg/5 ml Vial IVPB SCH (12:44)
[2018-06-14] MEDS: Epoetin Alfa 10,000 unit/ml Dialysis IV SCH (12:46)
--- NOTE | 2018-06-14 17:37 | CP.PCM.PN ---
Subjective - Date & Time of Evaluation Date of Evaluation: 06/14/18 Time of Evaluation: 17:35 - Subjective Subjective: seen and examined this am "feels like BM coming", wants bed berrios on iv fluids hypotensive for hd today Objective - Vital Signs/Intake and Output Vital Signs (last 24 hours): Temp Pulse Resp BP Pulse Ox 97.2 F L 87 97 H 102/64 97 06/14/18 16:00 06/14/18 16:00 06/14/18 16:00 06/14/18 16:00 06/14/18 16:00 - Medications Medications: Current Medications Acetaminophen (Tylenol 325mg Tab) 650 mg PO Q6 PRN PRN Reason: Fever >100.4 F Last Admin: 06/03/18 00:20 Dose: 650 mg Calcium Acetate (Phoslo) 667 mg PO TID [facility] Last Admin: 06/14/18 13:56 Dose: Not Given Docusate Sodium (Colace) 100 mg PO BID [facility] Last Admin: 06/14/18 09:36 Dose: Not Given Epoetin Ventura (Procrit) 10,000 unit IV TTS [facility] Last Admin: 06/14/18 12:46 Dose: 10,000 unit Ferric Sodium Gluconate Complex (Ferrlecit) 125 mg IVPB DAILY [facility] Stop: 06/19/18 10:01 Last Admin: 06/14/18 12:44 Dose: 125 mg Furosemide (Lasix) 40 mg PO DAILY [facility] Last Admin: 06/14/18 09:37 Dose: Not Given Guaifenesin (Robitussin) 100 mg PO QID [facility] Last Admin: 06/14/18 13:56 Dose: Not Given Meropenem 500 mg/ Sodium (Chloride) 100 mls @ 100 mls/hr IVPB Q12 [facility] PRN Reason: Protocol Last Admin: 06/14/18 11:31 Dose: Not Given Dextrose/Sodium Chloride (Dextrose 5%/0.45% Ns 1000 Ml) 1,000 mls @ 60 mls/hr IV .[id number] [facility] Last Admin: 06/14/18 10:45 Dose: Not Given Metronidazole (Flagyl) 500 mg in 100 mls @ 100 mls/hr IVPB Q8H [facility] PRN Reason: Protocol Last Admin: 06/14/18 11:30 Dose: Not Given Insulin Aspart (Novolog) 0 unit SC ACHS [facility] PRN Reason: Protocol Last Admin: 06/14/18 11:32 Dose: Not Given Lactobacillus Acidophilus (Bacid Acidophilus) 1 cap PO BID [facility] Last Admin: 06/14/18 09:36 Dose: Not Given Ondansetron HCl (Zofran Tab) 4 mg PO DAILY [facility] Last Admin: 06/14/18 09:38 Dose: Not Given Ondansetron HCl (Zofran Inj) 4 mg IVP DAILY@ONCE PRN PRN Reason: Nausea/Vomiting Last Admin: 06/11/18 18:55 Dose: 4 mg Pantoprazole Sodium (Protonix Ec Tab) 40 mg PO DAILY [facility] Last Admin: 06/14/18 09:37 Dose: Not Given Rosuvastatin Calcium (Crestor) 10 mg PO HS [facility] Last Admin: 06/13/18 22:03 Dose: 10 mg Sevelamer Carbonate (Renvela) 2.4 gm PO TIDCC [facility] Last Admin: 06/14/18 12:10 Dose: Not Given Tramadol HCl (Ultram) 50 mg PO Q8H PRN PRN Reason: Pain, moderate (4-7) Last Admin: 06/10/18 14:31 Dose: 50 mg - Labs Labs: 06/14/18 11:12 06/14/18 11:12 PT 12.3 SECONDS (9.7-12.2) H 06/01/18 11:06 INR 1.1 06/01/18 11:06 APTT 39 SECONDS (21-34) H 06/01/18 11:06 - Constitutional Appears: No Acute Distress, Chronically Ill (obese) - Head Exam Head Exam: NORMAL INSPECTION, NORMOCEPHALIC - Eye Exam Eye Exam: Normal appearance Pupil Exam: PERRL - ENT Exam ENT Exam: Mucous Membranes Moist, Normal Exam - Neck Exam Neck Exam: Full ROM, Normal Inspection - Respiratory Exam Respiratory Exam: NORMAL BREATHING PATTERN (b/l air entry) - Cardiovascular Exam Cardiovascular Exam: REGULAR RHYTHM, RRR - GI/Abdominal Exam GI & Abdominal Exam: Distended, Soft, Hypoactive Bowel Sounds - Extremities Exam Extremities Exam: Normal Inspection, Pedal Edema (chronic stasis) - Neurological Exam Neurological Exam: Alert, Awake - Psychiatric Exam Psychiatric exam: Anxious - Skin Skin Exam: Intact, Warm Assessment and Plan (1) AV graft thrombosis Status: Acute (2) Bacteremia due to Gram-negative bacteria Status: Acute (3) Cellulitis of right leg Status: Acute (4) End stage renal disease Status: Acute (5) Hypertensive chronic kidney disease with stage 5 chronic kidney disease or end stage renal disease Status: Acute (6) Morbid obesity Status: Acute - Assessment and Plan (Free Text) Assessment: maintain hd, cautious uf - hypotensive maintain gentle iv fluids, sbo GI management antibiotics per ID
--- NOTE | 2018-06-14 20:22 | CP.PCM.PN ---
Subjective - Date & Time of Evaluation Date of Evaluation: 06/14/18 Time of Evaluation: 02:00 - Subjective Subjective: dictated Objective - Vital Signs/Intake and Output Vital Signs (last 24 hours): Temp Pulse Resp BP Pulse Ox 97.2 F L 87 97 H 102/64 97 06/14/18 16:00 06/14/18 16:00 06/14/18 16:00 06/14/18 16:00 06/14/18 16:00 - Medications Medications: Current Medications Acetaminophen (Tylenol 325mg Tab) 650 mg PO Q6 PRN PRN Reason: Fever >100.4 F Last Admin: 06/03/18 00:20 Dose: 650 mg Calcium Acetate (Phoslo) 667 mg PO TID [facility] Last Admin: 06/14/18 18:31 Dose: 667 mg Docusate Sodium (Colace) 100 mg PO BID [facility] Last Admin: 06/14/18 18:32 Dose: 100 mg Epoetin Ventura (Procrit) 10,000 unit IV TTS [facility] Last Admin: 06/14/18 12:46 Dose: 10,000 unit Ferric Sodium Gluconate Complex (Ferrlecit) 125 mg IVPB DAILY [facility] Stop: 06/19/18 10:01 Last Admin: 06/14/18 12:44 Dose: 125 mg Guaifenesin (Robitussin) 100 mg PO QID [facility] Last Admin: 06/14/18 18:31 Dose: 100 mg Meropenem 500 mg/ Sodium (Chloride) 100 mls @ 100 mls/hr IVPB Q12 [facility] PRN Reason: Protocol Last Admin: 06/14/18 11:31 Dose: Not Given Dextrose/Sodium Chloride (Dextrose 5%/0.45% Ns 1000 Ml) 1,000 mls @ 60 mls/hr IV .[id number] [facility] Last Admin: 06/14/18 10:45 Dose: Not Given Metronidazole (Flagyl) 500 mg in 100 mls @ 100 mls/hr IVPB Q8H [facility] PRN Reason: Protocol Last Admin: 06/14/18 11:30 Dose: Not Given Insulin Aspart (Novolog) 0 unit SC ACHS [facility] PRN Reason: Protocol Last Admin: 06/14/18 17:10 Dose: Not Given Lactobacillus Acidophilus (Bacid Acidophilus) 1 cap PO BID [facility] Last Admin: 06/14/18 18:32 Dose: 1 cap Ondansetron HCl (Zofran Tab) 4 mg PO DAILY [facility] Last Admin: 06/14/18 09:38 Dose: Not Given Ondansetron HCl (Zofran Inj) 4 mg IVP DAILY@ONCE PRN PRN Reason: Nausea/Vomiting Last Admin: 06/11/18 18:55 Dose: 4 mg Pantoprazole Sodium (Protonix Ec Tab) 40 mg PO DAILY [facility] Last Admin: 06/14/18 09:37 Dose: Not Given Rosuvastatin Calcium (Crestor) 10 mg PO HS [facility] Last Admin: 06/13/18 22:03 Dose: 10 mg Sevelamer Carbonate (Renvela) 2.4 gm PO TIDCC [facility] Last Admin: 06/14/18 17:50 Dose: 2.4 gm Tramadol HCl (Ultram) 50 mg PO Q8H PRN PRN Reason: Pain, moderate (4-7) Last Admin: 06/10/18 14:31 Dose: 50 mg - Labs Labs: 06/14/18 11:12 06/14/18 11:12 PT 12.3 SECONDS (9.7-12.2) H 06/01/18 11:06 INR 1.1 06/01/18 11:06 APTT 39 SECONDS (21-34) H 06/01/18 11:06
[2018-06-15] MEDS: Dextrose 5%/0.45% NS 1,000 ML IV SCH ×2 (00:43→02:45)
[2018-06-15] MEDS ORDERED: HYDROmorphone 0.5 mg/0.5 ml ISec IVP STA (00:58)
--- NOTE | 2018-06-15 02:13 | PN ---
DATE: 06/14/2018 INFECTIOUS DISEASE FOLLOWUP SUBJECTIVE: The patient was having dialysis, and he was pretty drowsy as he has been on pain medications. I spoke to the renal nurse and as I told her that this patient was n.p.o. and was having small bowel obstruction. She was made aware of, and the patient was also seen by the renal attending and remains hypotensive. PHYSICAL EXAMINATION: VITAL SIGNS: T-max is 97.2, pulse rate of 70, blood pressure was 98/47. HEENT: Head is atraumatic. NECK: Supple. LUNGS: Clear. HEART: S1, S2 are regular. ABDOMEN: Prominent. EXTREMITIES: Have chronic lymphangitis but no warmth present. LABORATORY DATA: Labs are noted. Labs show white count is 9.1 today, hemoglobin 8.4, hematocrit 26.4, platelet count is 214, and bands are 2. ASSESSMENT AND PLAN: He has not had a bowel movement, but he told the renal attending that he felt he was going to get one. So, the patient is continued on multiple antibiotics at this time. He is on Flagyl as well as meropenem. We gave him a dose of vancomycin yesterday, I think. So at this time, we will continue with the Merrem and Flagyl. He has a clotted fistula. His repeat cultures have been negative, and the labs are looking little better. We will follow with Gastroenterology as well as Renal and the primary. Alec Boucher MD
[2018-06-15] MEDS: metroNIDAZOLE IV 500 mg/100 ml 500 MG/100 ML BAG IVPB SCH ×3 (03:39→19:46)
--- NOTE | 2018-06-15 06:28 | CP.PCM.PN ---
<Mateusz Gill - Last Filed: 06/15/18 10:31> Subjective - Date & Time of Evaluation Date of Evaluation: 06/15/18 Time of Evaluation: 06:23 - Subjective Subjective: GI Fellow PGY4, progress note. Patient seen and examined at bedside. +BM lastnight. No acute overnight events. Afeb/HDS. Denies abdominal pain, nausea, vomiting. Complete 12pt ROS negative except for above. Objective - Vital Signs/Intake and Output Vital Signs (last 24 hours): Temp Pulse Resp BP Pulse Ox 98.1 F 78 20 120/60 97 06/14/18 23:44 06/14/18 23:44 06/14/18 23:44 06/14/18 23:44 06/14/18 23:44 Intake and Output: 06/14/18 06/15/18 18:59 06:59 Intake Total 1120 Balance 1120 - Medications Medications: Current Medications Acetaminophen (Tylenol 325mg Tab) 650 mg PO Q6 PRN PRN Reason: Fever >100.4 F Last Admin: 06/03/18 00:20 Dose: 650 mg Calcium Acetate (Phoslo) 667 mg PO TID [facility] Last Admin: 06/14/18 18:31 Dose: 667 mg Docusate Sodium (Colace) 100 mg PO BID [facility] Last Admin: 06/14/18 18:32 Dose: 100 mg Epoetin Ventura (Procrit) 10,000 unit IV TTS [facility] Last Admin: 06/14/18 12:46 Dose: 10,000 unit Ferric Sodium Gluconate Complex (Ferrlecit) 125 mg IVPB DAILY [facility] Stop: 06/19/18 10:01 Last Admin: 06/14/18 12:44 Dose: 125 mg Guaifenesin (Robitussin) 100 mg PO QID [facility] Last Admin: 06/14/18 21:47 Dose: 100 mg Meropenem 500 mg/ Sodium (Chloride) 100 mls @ 100 mls/hr IVPB Q12 [facility] PRN Reason: Protocol Last Admin: 06/14/18 21:46 Dose: 100 mls/hr Dextrose/Sodium Chloride (Dextrose 5%/0.45% Ns 1000 Ml) 1,000 mls @ 60 mls/hr IV .[id number] [facility] Last Admin: 06/15/18 02:45 Dose: Not Given Metronidazole (Flagyl) 500 mg in 100 mls @ 100 mls/hr IVPB Q8H [facility] PRN Reason: Protocol Last Admin: 06/15/18 03:39 Dose: 100 mls/hr Insulin Aspart (Novolog) 0 unit SC ACHS [facility] PRN Reason: Protocol Last Admin: 06/14/18 21:57 Dose: Not Given Lactobacillus Acidophilus (Bacid Acidophilus) 1 cap PO BID [facility] Last Admin: 06/14/18 18:32 Dose: 1 cap Ondansetron HCl (Zofran Tab) 4 mg PO DAILY [facility] Last Admin: 06/14/18 09:38 Dose: Not Given Ondansetron HCl (Zofran Inj) 4 mg IVP DAILY@ONCE PRN PRN Reason: Nausea/Vomiting Last Admin: 06/11/18 18:55 Dose: 4 mg Pantoprazole Sodium (Protonix Ec Tab) 40 mg PO DAILY [facility] Last Admin: 06/14/18 09:37 Dose: Not Given Rosuvastatin Calcium (Crestor) 10 mg PO HS [facility] Last Admin: 06/14/18 21:45 Dose: 10 mg Sevelamer Carbonate (Renvela) 2.4 gm PO TIDCC [facility] Last Admin: 06/14/18 17:50 Dose: 2.4 gm Tramadol HCl (Ultram) 50 mg PO Q8H PRN PRN Reason: Pain, moderate (4-7) Last Admin: 06/10/18 14:31 Dose: 50 mg - Labs Labs: 06/14/18 11:12 06/14/18 11:12 PT 12.3 SECONDS (9.7-12.2) H 06/01/18 11:06 INR 1.1 06/01/18 11:06 APTT 39 SECONDS (21-34) H 06/01/18 11:06 - Constitutional Appears: Non-toxic, No Acute Distress, Chronically Ill - Head Exam Head Exam: ATRAUMATIC, NORMAL INSPECTION, NORMOCEPHALIC - Eye Exam Eye Exam: EOMI, Normal appearance - ENT Exam ENT Exam: Mucous Membranes Dry, Normal Exam - Respiratory Exam Respiratory Exam: Clear to Ausculation Bilateral, NORMAL BREATHING PATTERN. absent: Wheezes - Cardiovascular Exam Cardiovascular Exam: REGULAR RHYTHM, +S1, +S2 - GI/Abdominal Exam GI & Abdominal Exam: Soft, Normal Bowel Sounds. absent: Distended Additional comments: Mild tenderness around periumbilical area to palpation. - Neurological Exam Neurological Exam: Alert, Awake, Oriented x3 - Psychiatric Exam Psychiatric exam: absent: Normal Affect, Normal Mood - Skin Skin Exam: Dry, Intact Assessment and Plan - Assessment and Plan (Free Text) Assessment: 52M with metabolic syndrome, ESRD on HD presenting with sepsis and developed SBO. #SBO #Sepsis, bacteremia #Asymptomatic cholelithiasis #hepatosteatosis #Morbid obesity #DM #HTN #ESRD on HD #Chronic lower extremity lymphedema Plan: - CT findings reviewed and abnormal findings noted for SBO, cholelithiasis and hepatosteatosis. - Clinically improving SBO. - Okay to start clear liquid diet. Advance slowly if tolerated, full liquids tomorrow. - Start miralax bowel regimen today. - Anti-emetic therapy PRN - Continue with antibiotic therapy as per ID - Follow up surgical recommendations regarding SBO. - Consider abdominal xray if concern for return of SBO, however due to body habitus, exam may be difficult to interpret. - Will signoff at this point. Please reconsult for any other GI related concern. Thank you. <Vitaliy Cordero - Last Filed: 06/15/18 13:37> Objective - Vital Signs/Intake and Output Vital Signs (last 24 hours): Temp Pulse Resp BP Pulse Ox 97.9 F 71 20 103/61 96 06/15/18 08:32 06/15/18 08:32 06/15/18 08:32 06/15/18 08:32 06/15/18 08:32 Intake and Output: 06/15/18 06/15/18 06:59 18:59 Intake Total 1120 Balance 1120 - Medications Medications: Current Medications Acetaminophen (Tylenol 325mg Tab) 650 mg PO Q6 PRN PRN Reason: Fever >100.4 F Last Admin: 06/03/18 00:20 Dose: 650 mg Calcium Acetate (Phoslo) 667 mg PO TID [facility] Last Admin: 06/15/18 09:18 Dose: 667 mg Docusate Sodium (Colace) 100 mg PO BID [facility] Last Admin: 06/15/18 09:17 Dose: 100 mg Epoetin Ventura (Procrit) 10,000 unit IV TTS [facility] Last Admin: 06/14/18 12:46 Dose: 10,000 unit Ferric Sodium Gluconate Complex (Ferrlecit) 125 mg IVPB DAILY [facility] Stop: 06/19/18 10:01 Last Admin: 06/15/18 12:39 Dose: 125 mg Guaifenesin (Robitussin) 100 mg PO QID [facility] Last Admin: 06/15/18 09:18 Dose: 100 mg Meropenem 500 mg/ Sodium (Chloride) 100 mls @ 100 mls/hr IVPB Q12 [facility] PRN Reason: Protocol Last Admin: 06/15/18 09:31 Dose: 100 mls/hr Metronidazole (Flagyl) 500 mg in 100 mls @ 100 mls/hr IVPB Q8H [facility] PRN Reason: Protocol Last Admin: 06/15/18 03:39 Dose: 100 mls/hr Insulin Aspart (Novolog) 0 unit SC ACHS [facility] PRN Reason: Protocol Last Admin: 06/15/18 12:54 Dose: Not Given Lactobacillus Acidophilus (Bacid Acidophilus) 1 cap PO BID [facility] Last Admin: 06/15/18 09:17 Dose: 1 cap Ondansetron HCl (Zofran Tab) 4 mg PO DAILY [facility] Last Admin: 06/14/18 09:38 Dose: Not Given Ondansetron HCl (Zofran Inj) 4 mg IVP DAILY@ONCE PRN PRN Reason: Nausea/Vomiting Last Admin: 06/15/18 09:18 Dose: 4 mg Pantoprazole Sodium (Protonix Ec Tab) 40 mg PO DAILY [facility] Last Admin: 06/15/18 09:20 Dose: 40 mg Polyethylene Glycol (Miralax) 17 gm PO BID [facility] Last Admin: 06/15/18 12:53 Dose: Not Given Rosuvastatin Calcium (Crestor) 10 mg PO HS [facility] Last Admin: 06/14/18 21:45 Dose: 10 mg Sevelamer Carbonate (Renvela) 2.4 gm PO TIDCC [facility] Last Admin: 06/15/18 09:17 Dose: 2.4 gm Tramadol HCl (Ultram) 50 mg PO Q8H PRN PRN Reason: Pain, moderate (4-7) Last Admin: 06/15/18 10:12 Dose: 50 mg - Labs Labs: 06/14/18 11:12 06/14/18 11:12 PT 12.3 SECONDS (9.7-12.2) H 06/01/18 11:06 INR 1.1 06/01/18 11:06 APTT 39 SECONDS (21-34) H 06/01/18 11:06 Attending/Attestation - Attestation I have personally seen and examined this patient.: Yes I have fully participated in the care of the patient.: Yes I have reviewed all pertinent clinical information, including history, physical exam and plan: Yes Notes (Text): 06/15/18 13:33 I have seen and examined patient with GI fellow. No acute events overnight, patient with large bowel movement last evening. He still endorses mild abdominal pain, though improved compared to prior. He denies nausea, vomiting, fever/chills. Tolerating PO liquids without difficulty. Morbid obesity DM / HTN Sepsis, bacteremia Chronic LE lymphedema ESRD on HD Abdominal pain - small bowel obstruction, resolving - Liquid diet as tolerated - Suggest continued aggressive bowel regimen to prevent constipation - Continue with antibiotic therapy as per ID - Consider repeat abdominal imaging if abdominal pain persists - Follow up surgical recommendations regarding SBO management - No further planned GI interventions, will sign off case. Please reconsult as necessary, thank you.
[2018-06-15] MEDS: Lactobacillus Acidophilus 500 MU Cap PO SCH ×2 (09:17→18:42)
[2018-06-15] MEDS: Sevelamer Carb 2.4 gm/Packet PO SCH ×4 (09:17→18:40)
[2018-06-15] MEDS: guaiFENesin 100 mg/5 ml Syrup UD PO SCH ×5 (09:18→21:48)
[2018-06-15] MEDS: Pantoprazole 40 mg EC Tab PO SCH (09:20)
[2018-06-15] MEDS: Meropenem 500 MG in Sodium Chloride 0.9% 100 ML IVPB SCH ×2 (09:31→21:48)
--- NOTE | 2018-06-15 12:29 | CP.PCM.PN ---
Subjective - Date & Time of Evaluation Date of Evaluation: 06/15/18 Time of Evaluation: 12:26 - Subjective Subjective: COVERING DR Lucy BUTLER PT AWAKE, NO DISTRESS. ROS; OTHERWISE NEG. Objective - Vital Signs/Intake and Output Vital Signs (last 24 hours): Temp Pulse Resp BP Pulse Ox 97.9 F 71 20 103/61 96 06/15/18 08:32 06/15/18 08:32 06/15/18 08:32 06/15/18 08:32 06/15/18 08:32 Intake and Output: 06/15/18 06/15/18 06:59 18:59 Intake Total 1120 Balance 1120 - Medications Medications: Current Medications Acetaminophen (Tylenol 325mg Tab) 650 mg PO Q6 PRN PRN Reason: Fever >100.4 F Last Admin: 06/03/18 00:20 Dose: 650 mg Calcium Acetate (Phoslo) 667 mg PO TID [facility] Last Admin: 06/15/18 09:18 Dose: 667 mg Docusate Sodium (Colace) 100 mg PO BID [facility] Last Admin: 06/15/18 09:17 Dose: 100 mg Epoetin Ventura (Procrit) 10,000 unit IV TTS [facility] Last Admin: 06/14/18 12:46 Dose: 10,000 unit Ferric Sodium Gluconate Complex (Ferrlecit) 125 mg IVPB DAILY [facility] Stop: 06/19/18 10:01 Last Admin: 06/14/18 12:44 Dose: 125 mg Guaifenesin (Robitussin) 100 mg PO QID [facility] Last Admin: 06/15/18 09:18 Dose: 100 mg Meropenem 500 mg/ Sodium (Chloride) 100 mls @ 100 mls/hr IVPB Q12 [facility] PRN Reason: Protocol Last Admin: 06/15/18 09:31 Dose: 100 mls/hr Metronidazole (Flagyl) 500 mg in 100 mls @ 100 mls/hr IVPB Q8H [facility] PRN Reason: Protocol Last Admin: 06/15/18 03:39 Dose: 100 mls/hr Insulin Aspart (Novolog) 0 unit SC ACHS [facility] PRN Reason: Protocol Last Admin: 06/14/18 21:57 Dose: Not Given Lactobacillus Acidophilus (Bacid Acidophilus) 1 cap PO BID [facility] Last Admin: 06/15/18 09:17 Dose: 1 cap Ondansetron HCl (Zofran Tab) 4 mg PO DAILY [facility] Last Admin: 06/14/18 09:38 Dose: Not Given Ondansetron HCl (Zofran Inj) 4 mg IVP DAILY@ONCE PRN PRN Reason: Nausea/Vomiting Last Admin: 06/15/18 09:18 Dose: 4 mg Pantoprazole Sodium (Protonix Ec Tab) 40 mg PO DAILY [facility] Last Admin: 06/15/18 09:20 Dose: 40 mg Polyethylene Glycol (Miralax) 17 gm PO BID [facility] Rosuvastatin Calcium (Crestor) 10 mg PO HS [facility] Last Admin: 06/14/18 21:45 Dose: 10 mg Sevelamer Carbonate (Renvela) 2.4 gm PO TIDCC [facility] Last Admin: 06/15/18 09:17 Dose: 2.4 gm Tramadol HCl (Ultram) 50 mg PO Q8H PRN PRN Reason: Pain, moderate (4-7) Last Admin: 06/15/18 10:12 Dose: 50 mg - Labs Labs: 06/14/18 11:12 06/14/18 11:12 PT 12.3 SECONDS (9.7-12.2) H 06/01/18 11:06 INR 1.1 06/01/18 11:06 APTT 39 SECONDS (21-34) H 06/01/18 11:06 - Constitutional Appears: No Acute Distress, Chronically Ill - Head Exam Head Exam: ATRAUMATIC, NORMOCEPHALIC - Eye Exam Eye Exam: EOMI, Normal appearance - ENT Exam ENT Exam: Mucous Membranes Dry - Neck Exam Neck Exam: Normal Inspection - Respiratory Exam Respiratory Exam: Decreased Breath Sounds. absent: Respiratory Distress - Cardiovascular Exam Cardiovascular Exam: RRR, +S1, +S2 - GI/Abdominal Exam Additional comments: MORBID OBESE - Rectal Exam Rectal Exam: Deferred - Extremities Exam Additional comments: CHRONIC CHANGES +BILAT LYMPHEDEMA - Back Exam Back Exam: absent: rash noted - Neurological Exam Neurological Exam: Awake, CN II-XII Intact - Psychiatric Exam Psychiatric exam: Normal Affect - Skin Skin Exam: absent: Rash Assessment and Plan (1) COPD exacerbation Status: Acute (2) AV graft thrombosis Status: Acute (3) Bacteremia due to Gram-negative bacteria Status: Acute (4) Cellulitis of right leg Status: Acute (5) ESRD needing dialysis Status: Acute (6) Morbid obesity Status: Acute (7) Anemia Status: Acute (8) Cellulitis Status: Acute (9) Diabetes Status: Acute (10) Hypertension Status: Acute (11) Iron deficiency anemia Status: Acute (12) Lymphedema Status: Acute - Assessment and Plan (Free Text) Assessment: RESP STATUS NO SIG CHANGE., CONT PULM TOILET, NEB BD., MONITOR O2 SAT. CXR REVIEWED. HD PER RENAL., GI F/U NOTED.,TO START PO LIQ AND MONITOR . SURG F/ U. CONT AB PER ID., PROG POOR., DISCUSSED WITH STAFF AT LENGTH.
[2018-06-15] MEDS: Ferric Sodium Gluconat Complex 62.5 mg/5 ml Vial IVPB SCH (12:39)
[2018-06-15] MEDS: POLYETHYLENE GLYCOL 3350 17 GM/Dose PACKET PO SCH ×3 (12:53→18:46)
[2018-06-15] MEDS: (Novolog) Insulin Aspart, Recombinant 100 u/ml 10 ml vial SC SCH ×3 (12:54→22:59)
--- NOTE | 2018-06-15 14:39 | CP.PCM.PN ---
Subjective - Date & Time of Evaluation Date of Evaluation: 06/15/18 Time of Evaluation: 14:37 - Subjective Subjective: moving bowels hungry tolerated HD via catheter no chest pain no sob no headache no rash chronic pain diffusely no fever anuric no abdominal pain no sinus pain Objective - Vital Signs/Intake and Output Vital Signs (last 24 hours): Temp Pulse Resp BP Pulse Ox 97.9 F 71 20 103/61 96 06/15/18 08:32 06/15/18 08:32 06/15/18 08:32 06/15/18 08:32 06/15/18 08:32 Intake and Output: 06/15/18 06/15/18 06:59 18:59 Intake Total 1120 Balance 1120 - Medications Medications: Current Medications Acetaminophen (Tylenol 325mg Tab) 650 mg PO Q6 PRN PRN Reason: Fever >100.4 F Last Admin: 06/03/18 00:20 Dose: 650 mg Calcium Acetate (Phoslo) 667 mg PO TID [facility] Last Admin: 06/15/18 14:18 Dose: Not Given Docusate Sodium (Colace) 100 mg PO BID [facility] Last Admin: 06/15/18 09:17 Dose: 100 mg Epoetin Ventura (Procrit) 10,000 unit IV TTS [facility] Last Admin: 06/14/18 12:46 Dose: 10,000 unit Ferric Sodium Gluconate Complex (Ferrlecit) 125 mg IVPB DAILY [facility] Stop: 06/19/18 10:01 Last Admin: 06/15/18 12:39 Dose: 125 mg Guaifenesin (Robitussin) 100 mg PO QID [facility] Last Admin: 06/15/18 14:18 Dose: Not Given Meropenem 500 mg/ Sodium (Chloride) 100 mls @ 100 mls/hr IVPB Q12 [facility] PRN Reason: Protocol Last Admin: 06/15/18 09:31 Dose: 100 mls/hr Metronidazole (Flagyl) 500 mg in 100 mls @ 100 mls/hr IVPB Q8H [facility] PRN Reason: Protocol Last Admin: 06/15/18 14:16 Dose: 100 mls/hr Insulin Aspart (Novolog) 0 unit SC ACHS [facility] PRN Reason: Protocol Last Admin: 06/15/18 12:54 Dose: Not Given Lactobacillus Acidophilus (Bacid Acidophilus) 1 cap PO BID [facility] Last Admin: 06/15/18 09:17 Dose: 1 cap Ondansetron HCl (Zofran Tab) 4 mg PO DAILY [facility] Last Admin: 06/14/18 09:38 Dose: Not Given Ondansetron HCl (Zofran Inj) 4 mg IVP DAILY@ONCE PRN PRN Reason: Nausea/Vomiting Last Admin: 06/15/18 09:18 Dose: 4 mg Pantoprazole Sodium (Protonix Ec Tab) 40 mg PO DAILY [facility] Last Admin: 06/15/18 09:20 Dose: 40 mg Polyethylene Glycol (Miralax) 17 gm PO BID [facility] Last Admin: 06/15/18 12:53 Dose: Not Given Rosuvastatin Calcium (Crestor) 10 mg PO HS [facility] Last Admin: 06/14/18 21:45 Dose: 10 mg Sevelamer Carbonate (Renvela) 2.4 gm PO TIDCC [facility] Last Admin: 06/15/18 14:18 Dose: Not Given Tramadol HCl (Ultram) 50 mg PO Q8H PRN PRN Reason: Pain, moderate (4-7) Last Admin: 06/15/18 10:12 Dose: 50 mg - Labs Labs: 06/14/18 11:12 06/14/18 11:12 PT 12.3 SECONDS (9.7-12.2) H 06/01/18 11:06 INR 1.1 06/01/18 11:06 APTT 39 SECONDS (21-34) H 06/01/18 11:06 - Constitutional Appears: No Acute Distress, Chronically Ill - Head Exam Head Exam: ATRAUMATIC, NORMAL INSPECTION - Eye Exam Eye Exam: EOMI - ENT Exam ENT Exam: Mucous Membranes Moist - Neck Exam Neck Exam: Full ROM. absent: Lymphadenopathy - Respiratory Exam Respiratory Exam: Decreased Breath Sounds. absent: Accessory Muscle Use - Cardiovascular Exam Cardiovascular Exam: REGULAR RHYTHM. absent: Rubs - GI/Abdominal Exam GI & Abdominal Exam: Distended. absent: Tenderness - Extremities Exam Extremities Exam: Pedal Edema Additional comments: lymphedema, venous stasis discoloration - Neurological Exam Neurological Exam: Alert, Awake, Oriented x3 - Psychiatric Exam Psychiatric exam: Normal Affect Assessment and Plan - Assessment and Plan (Free Text) Assessment: HD in am monitor bowel function AB for gram negative bacteremia
--- NOTE | 2018-06-15 18:58 | CP.PCM.PN ---
Subjective - Date & Time of Evaluation Date of Evaluation: 06/15/18 Time of Evaluation: 02:00 - Subjective Subjective: dictated Objective - Vital Signs/Intake and Output Vital Signs (last 24 hours): Temp Pulse Resp BP Pulse Ox 98.3 F 76 20 94/57 L 93 L 06/15/18 15:49 06/15/18 15:49 06/15/18 15:49 06/15/18 15:49 06/15/18 15:49 Intake and Output: 06/15/18 06/15/18 06:59 18:59 Intake Total 1120 Balance 1120 - Medications Medications: Current Medications Acetaminophen (Tylenol 325mg Tab) 650 mg PO Q6 PRN PRN Reason: Fever >100.4 F Last Admin: 06/15/18 15:13 Dose: 650 mg Calcium Acetate (Phoslo) 667 mg PO TID [facility] Last Admin: 06/15/18 18:41 Dose: 667 mg Docusate Sodium (Colace) 100 mg PO BID [facility] Last Admin: 06/15/18 18:40 Dose: 100 mg Epoetin Ventura (Procrit) 10,000 unit IV TTS [facility] Last Admin: 06/14/18 12:46 Dose: 10,000 unit Ferric Sodium Gluconate Complex (Ferrlecit) 125 mg IVPB DAILY [facility] Stop: 06/19/18 10:01 Last Admin: 06/15/18 12:39 Dose: 125 mg Guaifenesin (Robitussin) 100 mg PO QID [facility] Last Admin: 06/15/18 18:40 Dose: 100 mg Meropenem 500 mg/ Sodium (Chloride) 100 mls @ 100 mls/hr IVPB Q12 [facility] PRN Reason: Protocol Last Admin: 06/15/18 09:31 Dose: 100 mls/hr Metronidazole (Flagyl) 500 mg in 100 mls @ 100 mls/hr IVPB Q8H [facility] PRN Reason: Protocol Last Admin: 06/15/18 14:16 Dose: 100 mls/hr Insulin Aspart (Novolog) 0 unit SC ACHS [facility] PRN Reason: Protocol Last Admin: 06/15/18 18:41 Dose: Not Given Lactobacillus Acidophilus (Bacid Acidophilus) 1 cap PO BID [facility] Last Admin: 06/15/18 18:42 Dose: Not Given Ondansetron HCl (Zofran Tab) 4 mg PO DAILY [facility] Last Admin: 06/14/18 09:38 Dose: Not Given Ondansetron HCl (Zofran Inj) 4 mg IVP DAILY@ONCE PRN PRN Reason: Nausea/Vomiting Last Admin: 06/15/18 09:18 Dose: 4 mg Pantoprazole Sodium (Protonix Ec Tab) 40 mg PO DAILY [facility] Last Admin: 06/15/18 09:20 Dose: 40 mg Polyethylene Glycol (Miralax) 17 gm PO BID [facility] Last Admin: 06/15/18 18:46 Dose: Not Given Rosuvastatin Calcium (Crestor) 10 mg PO HS [facility] Last Admin: 06/14/18 21:45 Dose: 10 mg Sevelamer Carbonate (Renvela) 2.4 gm PO TIDCC [facility] Last Admin: 06/15/18 18:40 Dose: 2.4 gm Tramadol HCl (Ultram) 50 mg PO Q8H PRN PRN Reason: Pain, moderate (4-7) Last Admin: 06/15/18 18:41 Dose: 50 mg - Labs Labs: 06/14/18 11:12 06/14/18 11:12 PT 12.3 SECONDS (9.7-12.2) H 06/01/18 11:06 INR 1.1 06/01/18 11:06 APTT 39 SECONDS (21-34) H 06/01/18 11:06
--- NOTE | 2018-06-16 00:19 | PN ---
DATE: 06/15/2018 SUBJECTIVE: The patient was very lethargic, poorly responsive. I think the pain medications are making him very sleepy otherwise. PHYSICAL EXAMINATION: HEENT: Head is atraumatic. NECK: Supple. LUNGS: Had breath sounds. HEART: S1, S2 are regular. ABDOMEN: Flabby. EXTREMITIES: Have bilateral elephantiasis and edema bilaterally. No cellulitis noted at this time. LABORATORY DATA: However, his procalcitonin level still is above 10. ASSESSMENT AND PLAN: He is on antibiotics. He remains on meropenem at this time which the Acinetobacter was sensitive to. We had added vancomycin and Flagyl. His catheter has been functioning. He was moving bowels. So at this time, I think his bowel obstruction is getting better. We will continue present treatment that he needs for Acinetobacter at least three weeks of treatment. We started after we got the cultures back and probably the small bowel obstruction is resolving. We will continue with this treatment at this time, and we will follow. Alec Boucher MD
[2018-06-16] MEDS: metroNIDAZOLE IV 500 mg/100 ml 500 MG/100 ML BAG IVPB SCH ×3 (03:13→18:33)
[2018-06-16] MEDS: Sevelamer Carb 2.4 gm/Packet PO SCH ×3 (08:31→18:23)
[2018-06-16] MEDS: (Novolog) Insulin Aspart, Recombinant 100 u/ml 10 ml vial SC SCH ×4 (08:32→21:57)
--- NOTE | 2018-06-16 09:44 | CP.PCM.PN ---
Subjective - Date & Time of Evaluation Date of Evaluation: 06/16/18 Time of Evaluation: 09:41 - Subjective Subjective: alert, feels better has been afebrile, repeat blood cultures were negative for dialysis today BP low recently no c/o n, v, f, chills, HAs Objective - Vital Signs/Intake and Output Vital Signs (last 24 hours): Temp Pulse Resp BP Pulse Ox 98.2 F 65 18 89/53 L 96 06/16/18 07:30 06/16/18 07:30 06/16/18 07:30 06/16/18 07:30 06/16/18 07:30 Intake and Output: 06/16/18 06/16/18 06:59 18:59 Intake Total 400 Balance 400 - Medications Medications: Current Medications Acetaminophen (Tylenol 325mg Tab) 650 mg PO Q6 PRN PRN Reason: Fever >100.4 F Last Admin: 06/15/18 15:13 Dose: 650 mg Calcium Acetate (Phoslo) 667 mg PO TID [facility] Last Admin: 06/15/18 18:41 Dose: 667 mg Docusate Sodium (Colace) 100 mg PO BID [facility] Last Admin: 06/15/18 18:40 Dose: 100 mg Epoetin Ventura (Procrit) 10,000 unit IV TTS [facility] Last Admin: 06/14/18 12:46 Dose: 10,000 unit Ferric Sodium Gluconate Complex (Ferrlecit) 125 mg IVPB DAILY [facility] Stop: 06/19/18 10:01 Last Admin: 06/15/18 12:39 Dose: 125 mg Guaifenesin (Robitussin) 100 mg PO QID [facility] Last Admin: 06/15/18 21:48 Dose: 100 mg Meropenem 500 mg/ Sodium (Chloride) 100 mls @ 100 mls/hr IVPB Q12 [facility] PRN Reason: Protocol Last Admin: 06/15/18 21:48 Dose: 100 mls/hr Metronidazole (Flagyl) 500 mg in 100 mls @ 100 mls/hr IVPB Q8H [facility] PRN Reason: Protocol Last Admin: 06/16/18 03:13 Dose: 100 mls/hr Insulin Aspart (Novolog) 0 unit SC ACHS [facility] PRN Reason: Protocol Last Admin: 06/16/18 08:32 Dose: Not Given Lactobacillus Acidophilus (Bacid Acidophilus) 1 cap PO BID [facility] Last Admin: 06/15/18 18:42 Dose: Not Given Ondansetron HCl (Zofran Tab) 4 mg PO DAILY [facility] Last Admin: 06/14/18 09:38 Dose: Not Given Ondansetron HCl (Zofran Inj) 4 mg IVP DAILY@ONCE PRN PRN Reason: Nausea/Vomiting Last Admin: 06/15/18 09:18 Dose: 4 mg Pantoprazole Sodium (Protonix Ec Tab) 40 mg PO DAILY [facility] Last Admin: 06/15/18 09:20 Dose: 40 mg Polyethylene Glycol (Miralax) 17 gm PO BID [facility] Last Admin: 06/15/18 18:46 Dose: Not Given Rosuvastatin Calcium (Crestor) 10 mg PO HS [facility] Last Admin: 06/15/18 21:48 Dose: 10 mg Sevelamer Carbonate (Renvela) 2.4 gm PO TIDCC [facility] Last Admin: 06/16/18 08:31 Dose: 2.4 gm Tramadol HCl (Ultram) 50 mg PO Q8H PRN PRN Reason: Pain, moderate (4-7) Last Admin: 06/16/18 03:18 Dose: 50 mg - Labs Labs: 06/14/18 11:12 06/14/18 11:12 PT 12.3 SECONDS (9.7-12.2) H 06/01/18 11:06 INR 1.1 06/01/18 11:06 APTT 39 SECONDS (21-34) H 06/01/18 11:06 - Constitutional Appears: No Acute Distress, Chronically Ill - Head Exam Head Exam: ATRAUMATIC, NORMAL INSPECTION - Eye Exam Eye Exam: EOMI, Normal appearance - Neck Exam Neck Exam: Normal Inspection. absent: Tenderness - Respiratory Exam Respiratory Exam: Clear to Ausculation Bilateral, NORMAL BREATHING PATTERN - Cardiovascular Exam Cardiovascular Exam: REGULAR RHYTHM, +S1 - GI/Abdominal Exam GI & Abdominal Exam: Soft. absent: Tenderness - Extremities Exam Extremities Exam: Normal Inspection. absent: Tenderness - Neurological Exam Neurological Exam: Alert, CN II-XII Intact - Skin Skin Exam: Dry, Warm Assessment and Plan (1) End stage renal disease Status: Acute (2) Hypertensive chronic kidney disease with stage 5 chronic kidney disease or end stage renal disease Status: Acute (3) Morbid obesity Status: Acute (4) Lymphedema of lower extremity Status: Chronic (5) AV graft thrombosis Status: Acute (6) Bacteremia due to Gram-negative bacteria Status: Acute (7) Cellulitis of right leg Status: Acute - Assessment and Plan (Free Text) Plan: dialysis noiw, TTS IV ABs as per ID lower UF goal, add midodrine for hypotension
--- NOTE | 2018-06-16 10:50 | CP.PCM.PN ---
Subjective - Date & Time of Evaluation Date of Evaluation: 06/16/18 Time of Evaluation: 10:47 - Subjective Subjective: PT AWAKE, DROWSY, NO DISTRESS. ROS; OTHERWISE NEG. Objective - Vital Signs/Intake and Output Vital Signs (last 24 hours): Temp Pulse Resp BP Pulse Ox 98.2 F 65 18 89/53 L 96 06/16/18 07:30 06/16/18 07:30 06/16/18 07:30 06/16/18 07:30 06/16/18 07:30 Intake and Output: 06/16/18 06/16/18 06:59 18:59 Intake Total 400 Balance 400 - Medications Medications: Current Medications Acetaminophen (Tylenol 325mg Tab) 650 mg PO Q6 PRN PRN Reason: Fever >100.4 F Last Admin: 06/15/18 15:13 Dose: 650 mg Calcium Acetate (Phoslo) 667 mg PO TID [facility] Last Admin: 06/15/18 18:41 Dose: 667 mg Docusate Sodium (Colace) 100 mg PO BID [facility] Last Admin: 06/15/18 18:40 Dose: 100 mg Epoetin Ventura (Procrit) 10,000 unit IV TTS [facility] Last Admin: 06/14/18 12:46 Dose: 10,000 unit Ferric Sodium Gluconate Complex (Ferrlecit) 125 mg IVPB DAILY [facility] Stop: 06/19/18 10:01 Last Admin: 06/15/18 12:39 Dose: 125 mg Guaifenesin (Robitussin) 100 mg PO QID [facility] Last Admin: 06/15/18 21:48 Dose: 100 mg Meropenem 500 mg/ Sodium (Chloride) 100 mls @ 100 mls/hr IVPB Q12 [facility] PRN Reason: Protocol Last Admin: 06/15/18 21:48 Dose: 100 mls/hr Metronidazole (Flagyl) 500 mg in 100 mls @ 100 mls/hr IVPB Q8H [facility] PRN Reason: Protocol Last Admin: 06/16/18 03:13 Dose: 100 mls/hr Insulin Aspart (Novolog) 0 unit SC ACHS [facility] PRN Reason: Protocol Last Admin: 06/16/18 08:32 Dose: Not Given Lactobacillus Acidophilus (Bacid Acidophilus) 1 cap PO BID [facility] Last Admin: 06/15/18 18:42 Dose: Not Given Midodrine (Proamatine) 2.5 mg PO TID [facility] Ondansetron HCl (Zofran Tab) 4 mg PO DAILY [facility] Last Admin: 06/14/18 09:38 Dose: Not Given Ondansetron HCl (Zofran Inj) 4 mg IVP DAILY@ONCE PRN PRN Reason: Nausea/Vomiting Last Admin: 06/15/18 09:18 Dose: 4 mg Pantoprazole Sodium (Protonix Ec Tab) 40 mg PO DAILY [facility] Last Admin: 06/15/18 09:20 Dose: 40 mg Polyethylene Glycol (Miralax) 17 gm PO BID [facility] Last Admin: 06/15/18 18:46 Dose: Not Given Rosuvastatin Calcium (Crestor) 10 mg PO HS [facility] Last Admin: 06/15/18 21:48 Dose: 10 mg Sevelamer Carbonate (Renvela) 2.4 gm PO TIDCC [facility] Last Admin: 06/16/18 08:31 Dose: 2.4 gm Tramadol HCl (Ultram) 50 mg PO Q8H PRN PRN Reason: Pain, moderate (4-7) Last Admin: 06/16/18 03:18 Dose: 50 mg - Labs Labs: 06/14/18 11:12 06/14/18 11:12 PT 12.3 SECONDS (9.7-12.2) H 06/01/18 11:06 INR 1.1 06/01/18 11:06 APTT 39 SECONDS (21-34) H 06/01/18 11:06 - Constitutional Appears: No Acute Distress, Chronically Ill - Head Exam Head Exam: ATRAUMATIC, NORMOCEPHALIC - Eye Exam Eye Exam: EOMI, Normal appearance - ENT Exam ENT Exam: Mucous Membranes Moist - Neck Exam Neck Exam: Normal Inspection - Respiratory Exam Respiratory Exam: Decreased Breath Sounds. absent: Wheezes, Respiratory Distress - Cardiovascular Exam Cardiovascular Exam: RRR, +S1, +S2 - GI/Abdominal Exam GI & Abdominal Exam: Soft Additional comments: OBESE - Rectal Exam Rectal Exam: Deferred - Extremities Exam Additional comments: BILAT LYMPHEDEMA , CHRONIC CHANGES - Back Exam Back Exam: absent: CVA tenderness (L), CVA tenderness (R) - Neurological Exam Neurological Exam: Awake, CN II-XII Intact - Psychiatric Exam Psychiatric exam: absent: Anxious - Skin Skin Exam: absent: Rash Assessment and Plan (1) COPD exacerbation Status: Acute (2) AV graft thrombosis Status: Acute (3) Bacteremia due to Gram-negative bacteria Status: Acute (4) Cellulitis of right leg Status: Acute (5) ESRD needing dialysis Status: Acute (6) Morbid obesity Status: Acute (7) Anemia Status: Acute (8) Cellulitis Status: Acute (9) Diabetes Status: Acute (10) Hypertension Status: Acute (11) Iron deficiency anemia Status: Acute (12) Lymphedema Status: Acute - Assessment and Plan (Free Text) Assessment: RESP STATUS NO SIG CHANGE., CONT NEB BD., MONITOR O2 SAT. CXR REVIEWED. AFEBRILE ON IV AB., FOR HD TODAY. PROG POOR., DISCUSSED WITH STAFF AT LENGTH.
[2018-06-16] MEDS: Epoetin Alfa 10,000 unit/ml Dialysis IV SCH (11:22)
[2018-06-16] MEDS: Ferric Sodium Gluconat Complex 62.5 mg/5 ml Vial IVPB SCH (12:10)
[2018-06-16 14:19] LABS: BASO # 0.1 K/uL (0.0-0.2); BASO % 1.4 % (0.0-2.0); EOS # 0.2 K/uL (0.0-0.7); EOS % 1.9 % (0.0-4.0); HEMOGLOBIN 9.1 g/dL (12.0-18.0); LYMPH # 0.9 K/uL (1.0-4.3); LYMPH % 9.4 % (20.0-40.0); MEAN CORPUSCULAR HEMOGLOBIN 24.5 pg (27.0-31.0); MEAN CORPUSCULAR HGB CONC 31.8 g/dL (33.0-37.0); MEAN PLATELET VOLUME 7.6 fL (7.2-11.7); MONO # 1.2 K/uL (0.0-0.8); MONO % 12.2 % (0.0-10.0); NEUT # 7.4 K/uL (1.8-7.0); NEUT % 75.1 % (50.0-75.0); NRBC % 0.5 % (0.0-2.0); PLATELET COUNT 209 K/uL (130-400); RBC 3.71 Mil/uL (4.40-5.90); RED CELL DISTRIBUTION WIDTH 19.5 % (11.5-14.5); WHITE BLOOD COUNT 9.8 K/uL (4.8-10.8)
--- NOTE | 2018-06-16 14:47 | CP.PCM.PN ---
Subjective - Date & Time of Evaluation Date of Evaluation: 06/16/18 Time of Evaluation: 09:15 - Subjective Subjective: clinically same Objective - Vital Signs/Intake and Output Vital Signs (last 24 hours): Temp Pulse Resp BP Pulse Ox 98 F 68 17 98/53 L 95 06/16/18 11:30 06/16/18 12:30 06/16/18 12:30 06/16/18 12:30 06/16/18 12:30 Intake and Output: 06/16/18 06/16/18 06:59 18:59 Intake Total 400 Balance 400 - Medications Medications: Current Medications Acetaminophen (Tylenol 325mg Tab) 650 mg PO Q6 PRN PRN Reason: Fever >100.4 F Last Admin: 06/15/18 15:13 Dose: 650 mg Albuterol/Ipratropium (Duoneb 3 Mg/0.5 Mg (3 Ml) Ud) 3 ml INH RQ6 [facility] Calcium Acetate (Phoslo) 667 mg PO TID [facility] Last Admin: 06/15/18 18:41 Dose: 667 mg Docusate Sodium (Colace) 100 mg PO BID [facility] Last Admin: 06/15/18 18:40 Dose: 100 mg Epoetin Ventura (Procrit) 10,000 unit IV TTS [facility] Last Admin: 06/16/18 11:22 Dose: 10,000 unit Ferric Sodium Gluconate Complex (Ferrlecit) 125 mg IVPB DAILY [facility] Stop: 06/19/18 10:01 Last Admin: 06/16/18 12:10 Dose: 125 mg Guaifenesin (Robitussin) 100 mg PO QID [facility] Last Admin: 06/15/18 21:48 Dose: 100 mg Meropenem 500 mg/ Sodium (Chloride) 100 mls @ 100 mls/hr IVPB Q12 [facility] PRN Reason: Protocol Last Admin: 06/15/18 21:48 Dose: 100 mls/hr Metronidazole (Flagyl) 500 mg in 100 mls @ 100 mls/hr IVPB Q8H [facility] PRN Reason: Protocol Last Admin: 06/16/18 03:13 Dose: 100 mls/hr Insulin Aspart (Novolog) 0 unit SC ACHS [facility] PRN Reason: Protocol Last Admin: 06/16/18 08:32 Dose: Not Given Lactobacillus Acidophilus (Bacid Acidophilus) 1 cap PO BID [facility] Last Admin: 06/15/18 18:42 Dose: Not Given Midodrine (Proamatine) 2.5 mg PO TID [facility] Last Admin: 06/16/18 11:20 Dose: 2.5 mg Ondansetron HCl (Zofran Tab) 4 mg PO DAILY [facility] Last Admin: 06/14/18 09:38 Dose: Not Given Ondansetron HCl (Zofran Inj) 4 mg IVP DAILY@ONCE PRN PRN Reason: Nausea/Vomiting Last Admin: 06/15/18 09:18 Dose: 4 mg Pantoprazole Sodium (Protonix Ec Tab) 40 mg PO DAILY [facility] Last Admin: 06/15/18 09:20 Dose: 40 mg Polyethylene Glycol (Miralax) 17 gm PO BID [facility] Last Admin: 06/15/18 18:46 Dose: Not Given Rosuvastatin Calcium (Crestor) 10 mg PO HS [facility] Last Admin: 06/15/18 21:48 Dose: 10 mg Sevelamer Carbonate (Renvela) 2.4 gm PO TIDCC [facility] Last Admin: 06/16/18 08:31 Dose: 2.4 gm Tramadol HCl (Ultram) 50 mg PO Q8H PRN PRN Reason: Pain, moderate (4-7) Last Admin: 06/16/18 03:18 Dose: 50 mg - Labs Labs: 06/16/18 14:12 06/14/18 11:12 PT 12.3 SECONDS (9.7-12.2) H 06/01/18 11:06 INR 1.1 06/01/18 11:06 APTT 39 SECONDS (21-34) H 06/01/18 11:06 - Constitutional Appears: Well - Head Exam Head Exam: ATRAUMATIC, NORMAL INSPECTION, NORMOCEPHALIC - Eye Exam Eye Exam: EOMI, Normal appearance, PERRL Pupil Exam: NORMAL ACCOMODATION, PERRL - ENT Exam ENT Exam: Mucous Membranes Moist, Normal Exam - Neck Exam Neck Exam: Full ROM, Normal Inspection. absent: Lymphadenopathy - Respiratory Exam Respiratory Exam: Decreased Breath Sounds - Cardiovascular Exam Cardiovascular Exam: REGULAR RHYTHM, +S1, +S2 - GI/Abdominal Exam GI & Abdominal Exam: Soft, Diminished Bowel Sounds - Rectal Exam Rectal Exam: Deferred
[2018-06-16 14:48] LABS: ANISOCYTOSIS MODERATE; BANDS 6 % (0-2); LYMPHOCYTE 8 % (20-40); MONOCYTE 12 % (0-10); MYELOCYTE 1 % (0-0); NEUTROPHIL 73 % (50-75); NUCLEATED RED BLOOD CELL 1 % (0-0); PLATELET ESTIMATE NORMAL (NORMAL); TOTAL CELLS COUNTED 100
[2018-06-16 14:49] LABS: HYPOCHROMIC SLIGHT
[2018-06-16] MEDS: Meropenem 500 MG in Sodium Chloride 0.9% 100 ML IVPB SCH ×2 (16:20→20:52)
[2018-06-16] MEDS: Lactobacillus Acidophilus 500 MU Cap PO SCH ×2 (16:20→18:25)
[2018-06-16] MEDS: Pantoprazole 40 mg EC Tab PO SCH (16:21)
[2018-06-16] MEDS: POLYETHYLENE GLYCOL 3350 17 GM/Dose PACKET PO SCH ×2 (16:21→18:24)
[2018-06-16] MEDS: guaiFENesin 100 mg/5 ml Syrup UD PO SCH ×3 (16:22→20:59)
[2018-06-16] MEDS: Albuterol-Ipratrop 3 mg / 0.5 (3 ml) UD INH SCH (20:20)
--- NOTE | 2018-06-16 21:17 | CP.PCM.PN ---
Subjective - Date & Time of Evaluation Date of Evaluation: 06/16/18 Time of Evaluation: 02:15 - Subjective Subjective: dictated Objective - Vital Signs/Intake and Output Vital Signs (last 24 hours): Temp Pulse Resp BP Pulse Ox 97.6 F 72 22 102/56 L 96 06/16/18 17:00 06/16/18 17:00 06/16/18 17:00 06/16/18 17:00 06/16/18 17:00 - Medications Medications: Current Medications Acetaminophen (Tylenol 325mg Tab) 650 mg PO Q6 PRN PRN Reason: Fever >100.4 F Last Admin: 06/15/18 15:13 Dose: 650 mg Albuterol/Ipratropium (Duoneb 3 Mg/0.5 Mg (3 Ml) Ud) 3 ml INH RQ6 [facility] Last Admin: 06/16/18 20:20 Dose: 3 ml Calcium Acetate (Phoslo) 667 mg PO TID [facility] Last Admin: 06/16/18 18:23 Dose: 667 mg Docusate Sodium (Colace) 100 mg PO BID [facility] Last Admin: 06/16/18 18:24 Dose: 100 mg Epoetin Ventura (Procrit) 10,000 unit IV TTS [facility] Last Admin: 06/16/18 11:22 Dose: 10,000 unit Ferric Sodium Gluconate Complex (Ferrlecit) 125 mg IVPB DAILY [facility] Stop: 06/19/18 10:01 Last Admin: 06/16/18 12:10 Dose: 125 mg Guaifenesin (Robitussin) 100 mg PO QID [facility] Last Admin: 06/16/18 20:59 Dose: Not Given Meropenem 500 mg/ Sodium (Chloride) 100 mls @ 100 mls/hr IVPB Q12 [facility] PRN Reason: Protocol Last Admin: 06/16/18 20:52 Dose: 100 mls/hr Metronidazole (Flagyl) 500 mg in 100 mls @ 100 mls/hr IVPB Q8H [facility] PRN Reason: Protocol Last Admin: 06/16/18 18:33 Dose: 100 mls/hr Insulin Aspart (Novolog) 0 unit SC ACHS [facility] PRN Reason: Protocol Last Admin: 06/16/18 16:42 Dose: Not Given Lactobacillus Acidophilus (Bacid Acidophilus) 1 cap PO BID [facility] Last Admin: 06/16/18 18:25 Dose: 1 cap Midodrine (Proamatine) 2.5 mg PO TID [facility] Last Admin: 06/16/18 18:24 Dose: 2.5 mg Ondansetron HCl (Zofran Tab) 4 mg PO DAILY [facility] Last Admin: 06/16/18 16:22 Dose: Not Given Ondansetron HCl (Zofran Inj) 4 mg IVP DAILY@ONCE PRN PRN Reason: Nausea/Vomiting Last Admin: 06/15/18 09:18 Dose: 4 mg Pantoprazole Sodium (Protonix Ec Tab) 40 mg PO DAILY [facility] Last Admin: 06/16/18 16:21 Dose: Not Given Polyethylene Glycol (Miralax) 17 gm PO BID [facility] Last Admin: 06/16/18 18:24 Dose: 17 gm Rosuvastatin Calcium (Crestor) 10 mg PO HS [facility] Last Admin: 06/16/18 20:59 Dose: 10 mg Sevelamer Carbonate (Renvela) 2.4 gm PO TIDCC [facility] Last Admin: 06/16/18 18:23 Dose: 2.4 gm Tramadol HCl (Ultram) 50 mg PO Q8H PRN PRN Reason: Pain, moderate (4-7) Last Admin: 06/16/18 18:24 Dose: 50 mg - Labs Labs: 06/16/18 14:12 06/14/18 11:12 PT 12.3 SECONDS (9.7-12.2) H 06/01/18 11:06 INR 1.1 06/01/18 11:06 APTT 39 SECONDS (21-34) H 06/01/18 11:06
[2018-06-17] MEDS: Albuterol-Ipratrop 3 mg / 0.5 (3 ml) UD INH SCH ×4 (01:15→19:18)
--- NOTE | 2018-06-17 02:36 | PN ---
DATE: 06/16/2018 SUBJECTIVE: The patient is getting dialysis. He has been afebrile. No new complaints. Falls asleep. PHYSICAL EXAMINATION: VITAL SIGNS: Pulse is 72, blood pressure 102/56, and respirations are 18. HEENT: Head is atraumatic. NECK: Supple. LUNGS: Clear. HEART: S1 and S2 are regular. ABDOMEN: Remains flabby, nontender. EXTREMITIES: Have elephantiasis. LABORATORY DATA: His labs show white count is 9.8 today, hemoglobin 9.1, hematocrit 28.6, platelet count is 209, neutrophils are 75, and bands still remain 6. Procalcitonin is 8.22, it is improving. He did have Acinetobacter. Blood, the repeat cultures are negative. ASSESSMENT AND PLAN: He did have cellulitis of the right upper thigh that is improving. He does have a clotted fistula. He was acutely ill with small bowel obstruction, seems to be coming a long now. We will continue to follow. He will need Flagyl and Merrem for another week to complete the course. Alec Boucher MD
[2018-06-17] MEDS: metroNIDAZOLE IV 500 mg/100 ml 500 MG/100 ML BAG IVPB SCH ×3 (02:57→18:50)
[2018-06-17] MEDS: (Novolog) Insulin Aspart, Recombinant 100 u/ml 10 ml vial SC SCH ×4 (07:57→22:42)
[2018-06-17] MEDS: Sevelamer Carb 2.4 gm/Packet PO SCH ×3 (08:27→17:29)
[2018-06-17] MEDS: guaiFENesin 100 mg/5 ml Syrup UD PO SCH ×4 (09:26→21:59)
[2018-06-17] MEDS: Pantoprazole 40 mg EC Tab PO SCH (09:26)
[2018-06-17] MEDS: POLYETHYLENE GLYCOL 3350 17 GM/Dose PACKET PO SCH ×2 (09:26→17:29)
[2018-06-17] MEDS: Lactobacillus Acidophilus 500 MU Cap PO SCH ×2 (09:27→17:29)
[2018-06-17] MEDS: Meropenem 500 MG in Sodium Chloride 0.9% 100 ML IVPB SCH ×2 (09:28→22:35)
[2018-06-17] MEDS: Ferric Sodium Gluconat Complex 62.5 mg/5 ml Vial IVPB SCH (12:56)
--- NOTE | 2018-06-17 13:28 | CP.PCM.PN ---
Subjective - Date & Time of Evaluation Date of Evaluation: 06/17/18 Time of Evaluation: 13:26 - Subjective Subjective: stable dialysis 06/16 c/o abdominal pains, c/o constipation no other new complaint Objective - Vital Signs/Intake and Output Vital Signs (last 24 hours): Temp Pulse Resp BP Pulse Ox 97.6 F 69 20 92/51 L 96 06/17/18 07:00 06/17/18 07:00 06/17/18 07:00 06/17/18 07:00 06/17/18 07:00 - Medications Medications: Current Medications Acetaminophen (Tylenol 325mg Tab) 650 mg PO Q6 PRN PRN Reason: Fever >100.4 F Last Admin: 06/15/18 15:13 Dose: 650 mg Albuterol/Ipratropium (Duoneb 3 Mg/0.5 Mg (3 Ml) Ud) 3 ml INH RQ6 [facility] Last Admin: 06/17/18 13:24 Dose: 3 ml Calcium Acetate (Phoslo) 667 mg PO TID [facility] Last Admin: 06/17/18 09:26 Dose: 667 mg Docusate Sodium (Colace) 100 mg PO BID [facility] Last Admin: 06/17/18 09:26 Dose: 100 mg Epoetin Ventura (Procrit) 10,000 unit IV TTS [facility] Last Admin: 06/16/18 11:22 Dose: 10,000 unit Ferric Sodium Gluconate Complex (Ferrlecit) 125 mg IVPB DAILY [facility] Stop: 06/19/18 10:01 Last Admin: 06/17/18 12:56 Dose: 125 mg Guaifenesin (Robitussin) 100 mg PO QID [facility] Last Admin: 06/17/18 09:26 Dose: 100 mg Meropenem 500 mg/ Sodium (Chloride) 100 mls @ 100 mls/hr IVPB Q12 [facility] PRN Reason: Protocol Last Admin: 06/17/18 09:28 Dose: 100 mls/hr Metronidazole (Flagyl) 500 mg in 100 mls @ 100 mls/hr IVPB Q8H [facility] PRN Reason: Protocol Last Admin: 06/17/18 11:04 Dose: 100 mls/hr Insulin Aspart (Novolog) 0 unit SC ACHS [facility] PRN Reason: Protocol Last Admin: 06/17/18 12:34 Dose: Not Given Lactobacillus Acidophilus (Bacid Acidophilus) 1 cap PO BID [facility] Last Admin: 06/17/18 09:27 Dose: 1 cap Midodrine (Proamatine) 2.5 mg PO TID [facility] Last Admin: 06/17/18 09:27 Dose: 2.5 mg Ondansetron HCl (Zofran Tab) 4 mg PO DAILY [facility] Last Admin: 06/17/18 09:28 Dose: 4 mg Ondansetron HCl (Zofran Inj) 4 mg IVP DAILY@ONCE PRN PRN Reason: Nausea/Vomiting Last Admin: 06/17/18 09:26 Dose: 4 mg Pantoprazole Sodium (Protonix Ec Tab) 40 mg PO DAILY [facility] Last Admin: 06/17/18 09:26 Dose: 40 mg Polyethylene Glycol (Miralax) 17 gm PO BID [facility] Last Admin: 06/17/18 09:26 Dose: 17 gm Rosuvastatin Calcium (Crestor) 10 mg PO HS [facility] Last Admin: 06/16/18 20:59 Dose: 10 mg Sevelamer Carbonate (Renvela) 2.4 gm PO TIDCC [facility] Last Admin: 06/17/18 08:27 Dose: 2.4 gm Tramadol HCl (Ultram) 50 mg PO Q8H PRN PRN Reason: Pain, moderate (4-7) Last Admin: 06/16/18 18:24 Dose: 50 mg - Labs Labs: 06/16/18 14:12 06/14/18 11:12 PT 12.3 SECONDS (9.7-12.2) H 06/01/18 11:06 INR 1.1 06/01/18 11:06 APTT 39 SECONDS (21-34) H 06/01/18 11:06 - Constitutional Appears: No Acute Distress, Chronically Ill - Head Exam Head Exam: ATRAUMATIC, NORMAL INSPECTION - Eye Exam Eye Exam: EOMI, Normal appearance - Respiratory Exam Respiratory Exam: Clear to Ausculation Bilateral, NORMAL BREATHING PATTERN - Cardiovascular Exam Cardiovascular Exam: REGULAR RHYTHM, +S1 - GI/Abdominal Exam GI & Abdominal Exam: Soft, Tenderness - Extremities Exam Extremities Exam: Pedal Edema, Tenderness - Neurological Exam Neurological Exam: Awake, CN II-XII Intact - Skin Skin Exam: Dry, Warm Assessment and Plan (1) End stage renal disease Status: Acute (2) Hypertensive chronic kidney disease with stage 5 chronic kidney disease or end stage renal disease Status: Acute (3) Morbid obesity Status: Acute (4) Lymphedema of lower extremity Status: Chronic (5) AV graft thrombosis Status: Acute (6) Bacteremia due to Gram-negative bacteria Status: Acute (7) Cellulitis of right leg Status: Acute - Assessment and Plan (Free Text) Plan: dialysis TTS IV ABs Add lactulose
--- NOTE | 2018-06-17 14:44 | CP.PCM.PN ---
Subjective - Date & Time of Evaluation Date of Evaluation: 06/17/18 Time of Evaluation: 14:42 - Subjective Subjective: PT ALERT, NO DISTRESS. ROS; OTHERWISE NEG. Objective - Vital Signs/Intake and Output Vital Signs (last 24 hours): Temp Pulse Resp BP Pulse Ox 97.6 F 69 20 92/51 L 96 06/17/18 07:00 06/17/18 07:00 06/17/18 07:00 06/17/18 07:00 06/17/18 07:00 - Medications Medications: Current Medications Acetaminophen (Tylenol 325mg Tab) 650 mg PO Q6 PRN PRN Reason: Fever >100.4 F Last Admin: 06/15/18 15:13 Dose: 650 mg Albuterol/Ipratropium (Duoneb 3 Mg/0.5 Mg (3 Ml) Ud) 3 ml INH RQ6 [facility] Last Admin: 06/17/18 13:24 Dose: 3 ml Calcium Acetate (Phoslo) 667 mg PO TID [facility] Last Admin: 06/17/18 09:26 Dose: 667 mg Docusate Sodium (Colace) 100 mg PO BID [facility] Last Admin: 06/17/18 09:26 Dose: 100 mg Epoetin Ventura (Procrit) 10,000 unit IV TTS [facility] Last Admin: 06/16/18 11:22 Dose: 10,000 unit Ferric Sodium Gluconate Complex (Ferrlecit) 125 mg IVPB DAILY [facility] Stop: 06/19/18 10:01 Last Admin: 06/17/18 12:56 Dose: 125 mg Guaifenesin (Robitussin) 100 mg PO QID [facility] Last Admin: 06/17/18 09:26 Dose: 100 mg Meropenem 500 mg/ Sodium (Chloride) 100 mls @ 100 mls/hr IVPB Q12 [facility] PRN Reason: Protocol Last Admin: 06/17/18 09:28 Dose: 100 mls/hr Metronidazole (Flagyl) 500 mg in 100 mls @ 100 mls/hr IVPB Q8H [facility] PRN Reason: Protocol Last Admin: 06/17/18 11:04 Dose: 100 mls/hr Insulin Aspart (Novolog) 0 unit SC ACHS [facility] PRN Reason: Protocol Last Admin: 06/17/18 12:34 Dose: Not Given Lactobacillus Acidophilus (Bacid Acidophilus) 1 cap PO BID [facility] Last Admin: 06/17/18 09:27 Dose: 1 cap Lactulose (Enulose) 20 gm PO [facility] Midodrine (Proamatine) 2.5 mg PO TID [facility] Last Admin: 06/17/18 09:27 Dose: 2.5 mg Ondansetron HCl (Zofran Tab) 4 mg PO DAILY [facility] Last Admin: 06/17/18 09:28 Dose: 4 mg Ondansetron HCl (Zofran Inj) 4 mg IVP DAILY@ONCE PRN PRN Reason: Nausea/Vomiting Last Admin: 06/17/18 09:26 Dose: 4 mg Pantoprazole Sodium (Protonix Ec Tab) 40 mg PO DAILY [facility] Last Admin: 06/17/18 09:26 Dose: 40 mg Polyethylene Glycol (Miralax) 17 gm PO BID [facility] Last Admin: 06/17/18 09:26 Dose: 17 gm Rosuvastatin Calcium (Crestor) 10 mg PO HS [facility] Last Admin: 06/16/18 20:59 Dose: 10 mg Sevelamer Carbonate (Renvela) 2.4 gm PO TIDCC [facility] Last Admin: 06/17/18 08:27 Dose: 2.4 gm Tramadol HCl (Ultram) 50 mg PO Q8H PRN PRN Reason: Pain, moderate (4-7) Last Admin: 06/16/18 18:24 Dose: 50 mg - Labs Labs: 06/16/18 14:12 06/14/18 11:12 PT 12.3 SECONDS (9.7-12.2) H 06/01/18 11:06 INR 1.1 06/01/18 11:06 APTT 39 SECONDS (21-34) H 06/01/18 11:06 - Constitutional Appears: No Acute Distress, Chronically Ill - Head Exam Head Exam: ATRAUMATIC, NORMOCEPHALIC - Eye Exam Eye Exam: EOMI, Normal appearance - ENT Exam ENT Exam: Mucous Membranes Moist - Neck Exam Neck Exam: Normal Inspection, Tenderness - Respiratory Exam Respiratory Exam: Decreased Breath Sounds. absent: Respiratory Distress - Cardiovascular Exam Cardiovascular Exam: +S1, +S2 - GI/Abdominal Exam GI & Abdominal Exam: Soft Additional comments: OBESE - Rectal Exam Rectal Exam: Deferred - Extremities Exam Additional comments: BILAT LE LYMPHEDEMA , CHRONIC CHANGES - Neurological Exam Neurological Exam: Alert, Awake, CN II-XII Intact - Skin Skin Exam: absent: Rash Assessment and Plan (1) COPD exacerbation Status: Acute (2) AV graft thrombosis Status: Acute (3) Bacteremia due to Gram-negative bacteria Status: Acute (4) Cellulitis of right leg Status: Acute (5) ESRD needing dialysis Status: Acute (6) Morbid obesity Status: Acute (7) Anemia Status: Acute (8) Cellulitis Status: Acute (9) Diabetes Status: Acute (10) Hypertension Status: Acute (11) Iron deficiency anemia Status: Acute (12) Lymphedema Status: Acute - Assessment and Plan (Free Text) Assessment: RESP STATUS NO SIG CHANGE., CONT PULM TOILET.,NEB BD., MONITOR O2 SAT. CXR REVIEWED., CONT AB PER ID., HD PER RENAL. PROG POOR., DISCUSSED WITH STAFF AT LENGTH.
--- NOTE | 2018-06-17 15:31 | CP.PCM.PN ---
Subjective - Date & Time of Evaluation Date of Evaluation: 06/17/18 Time of Evaluation: 15:26 - Subjective Subjective: PATIENT WAS ADMITTED FOR AVS CLOT AAOX3 / DENIES CHEST PAIN / SOB / ABD PAIN / NAUSEA OR VOMITING NO SIGN OF DISTRESS NOTED Objective - Vital Signs/Intake and Output Vital Signs (last 24 hours): Temp Pulse Resp BP Pulse Ox 97.6 F 69 20 92/51 L 96 06/17/18 07:00 06/17/18 07:00 06/17/18 07:00 06/17/18 07:00 06/17/18 07:00 - Medications Medications: Current Medications Acetaminophen (Tylenol 325mg Tab) 650 mg PO Q6 PRN PRN Reason: Fever >100.4 F Last Admin: 06/15/18 15:13 Dose: 650 mg Albuterol/Ipratropium (Duoneb 3 Mg/0.5 Mg (3 Ml) Ud) 3 ml INH RQ6 [facility] Last Admin: 06/17/18 13:24 Dose: 3 ml Calcium Acetate (Phoslo) 667 mg PO TID [facility] Last Admin: 06/17/18 14:45 Dose: 667 mg Docusate Sodium (Colace) 100 mg PO BID [facility] Last Admin: 06/17/18 09:26 Dose: 100 mg Epoetin Ventura (Procrit) 10,000 unit IV TTS [facility] Last Admin: 06/16/18 11:22 Dose: 10,000 unit Ferric Sodium Gluconate Complex (Ferrlecit) 125 mg IVPB DAILY [facility] Stop: 06/19/18 10:01 Last Admin: 06/17/18 12:56 Dose: 125 mg Guaifenesin (Robitussin) 100 mg PO QID [facility] Last Admin: 06/17/18 14:45 Dose: 100 mg Meropenem 500 mg/ Sodium (Chloride) 100 mls @ 100 mls/hr IVPB Q12 [facility] PRN Reason: Protocol Last Admin: 06/17/18 09:28 Dose: 100 mls/hr Metronidazole (Flagyl) 500 mg in 100 mls @ 100 mls/hr IVPB Q8H [facility] PRN Reason: Protocol Last Admin: 06/17/18 11:04 Dose: 100 mls/hr Insulin Aspart (Novolog) 0 unit SC ACHS [facility] PRN Reason: Protocol Last Admin: 06/17/18 12:34 Dose: Not Given Lactobacillus Acidophilus (Bacid Acidophilus) 1 cap PO BID [facility] Last Admin: 06/17/18 09:27 Dose: 1 cap Lactulose (Enulose) 20 gm PO HS [facility] Midodrine (Proamatine) 2.5 mg PO TID [facility] Last Admin: 06/17/18 14:45 Dose: 2.5 mg Ondansetron HCl (Zofran Tab) 4 mg PO DAILY [facility] Last Admin: 06/17/18 09:28 Dose: 4 mg Ondansetron HCl (Zofran Inj) 4 mg IVP DAILY@ONCE PRN PRN Reason: Nausea/Vomiting Last Admin: 06/17/18 09:26 Dose: 4 mg Pantoprazole Sodium (Protonix Ec Tab) 40 mg PO DAILY [facility] Last Admin: 06/17/18 09:26 Dose: 40 mg Polyethylene Glycol (Miralax) 17 gm PO BID [facility] Last Admin: 06/17/18 09:26 Dose: 17 gm Rosuvastatin Calcium (Crestor) 10 mg PO HS [facility] Last Admin: 06/16/18 20:59 Dose: 10 mg Sevelamer Carbonate (Renvela) 2.4 gm PO TIDCC [facility] Last Admin: 06/17/18 13:35 Dose: 2.4 gm Tramadol HCl (Ultram) 50 mg PO Q8H PRN PRN Reason: Pain, moderate (4-7) Last Admin: 06/16/18 18:24 Dose: 50 mg - Labs Labs: 06/16/18 14:12 06/14/18 11:12 PT 12.3 SECONDS (9.7-12.2) H 06/01/18 11:06 INR 1.1 06/01/18 11:06 APTT 39 SECONDS (21-34) H 06/01/18 11:06 Assessment and Plan - Assessment and Plan (Free Text) Assessment: PATIENT SEEN AND EXAMINED AT THE BEDSIDE LUNG SOUND CLEAR POSITIVE BOWEL SOUND ALL QUADRANT ABD SOFT AND DISTENDED MIDLINE IN PLACE AND SECURE CT SHOW A SBO BUT CLINICALLY IMPROVED DR LARA AND DR IRBY CLEAR FOR DC DISCUSS WITH DR TERRAZAS AND DR Lucy BUTLER WHO CLEAR FOR DC PLACE UNDER THE SERVICE OF DR Lucy BUTLER AT [facility] --CALL DR Lucy BUTLER FOR ADMITTING ORDER CONTINUE ALL HOME MEDICATION NEW ORDER MERREM IV FOR [address] TERRAZAS HEPLOCK CARE PER FACILITY PROTOCOL ACTIVITY TOLERATED AND FACILITY PROTOCOL CALL DR Lucy BUTLER FOR FURTHER ORDER DISCUSS WITH PATIENT WHO AGREE AND VERBALIZED UNDERSTANDING
--- NOTE | 2018-06-17 20:47 | CP.PCM.PN ---
Subjective - Date & Time of Evaluation Date of Evaluation: 06/17/18 Time of Evaluation: 08:45 - Subjective Subjective: clinically same Objective - Vital Signs/Intake and Output Vital Signs (last 24 hours): Temp Pulse Resp BP Pulse Ox 98.3 F 74 20 116/67 94 L 06/17/18 15:09 06/17/18 15:09 06/17/18 15:09 06/17/18 15:09 06/17/18 15:09 - Medications Medications: Current Medications Acetaminophen (Tylenol 325mg Tab) 650 mg PO Q6 PRN PRN Reason: Fever >100.4 F Last Admin: 06/15/18 15:13 Dose: 650 mg Albuterol/Ipratropium (Duoneb 3 Mg/0.5 Mg (3 Ml) Ud) 3 ml INH RQ6 [facility] Last Admin: 06/17/18 19:18 Dose: 3 ml Calcium Acetate (Phoslo) 667 mg PO TID [facility] Last Admin: 06/17/18 17:30 Dose: 667 mg Docusate Sodium (Colace) 100 mg PO BID [facility] Last Admin: 06/17/18 17:29 Dose: 100 mg Epoetin Ventura (Procrit) 10,000 unit IV TTS [facility] Last Admin: 06/16/18 11:22 Dose: 10,000 unit Ferric Sodium Gluconate Complex (Ferrlecit) 125 mg IVPB DAILY [facility] Stop: 06/19/18 10:01 Last Admin: 06/17/18 12:56 Dose: 125 mg Guaifenesin (Robitussin) 100 mg PO QID [facility] Last Admin: 06/17/18 14:45 Dose: 100 mg Meropenem 500 mg/ Sodium (Chloride) 100 mls @ 100 mls/hr IVPB Q12 [facility] PRN Reason: Protocol Last Admin: 06/17/18 09:28 Dose: 100 mls/hr Metronidazole (Flagyl) 500 mg in 100 mls @ 100 mls/hr IVPB Q8H [facility] PRN Reason: Protocol Last Admin: 06/17/18 18:50 Dose: 100 mls/hr Insulin Aspart (Novolog) 0 unit SC ACHS [facility] PRN Reason: Protocol Last Admin: 06/17/18 16:36 Dose: Not Given Lactobacillus Acidophilus (Bacid Acidophilus) 1 cap PO BID [facility] Last Admin: 06/17/18 17:29 Dose: 1 cap Lactulose (Enulose) 20 gm PO [facility] Midodrine (Proamatine) 2.5 mg PO TID [facility] Last Admin: 06/17/18 17:30 Dose: 2.5 mg Ondansetron HCl (Zofran Tab) 4 mg PO DAILY [facility] Last Admin: 06/17/18 09:28 Dose: 4 mg Ondansetron HCl (Zofran Inj) 4 mg IVP DAILY@ONCE PRN PRN Reason: Nausea/Vomiting Last Admin: 06/17/18 09:26 Dose: 4 mg Pantoprazole Sodium (Protonix Ec Tab) 40 mg PO DAILY [facility] Last Admin: 06/17/18 09:26 Dose: 40 mg Polyethylene Glycol (Miralax) 17 gm PO BID [facility] Last Admin: 06/17/18 17:29 Dose: 17 gm Rosuvastatin Calcium (Crestor) 10 mg PO HS [facility] Last Admin: 06/16/18 20:59 Dose: 10 mg Sevelamer Carbonate (Renvela) 2.4 gm PO TIDCC [facility] Last Admin: 06/17/18 17:29 Dose: 2.4 gm Tramadol HCl (Ultram) 50 mg PO Q8H PRN PRN Reason: Pain, moderate (4-7) Last Admin: 06/17/18 20:40 Dose: 50 mg - Labs Labs: 06/16/18 14:12 06/14/18 11:12 PT 12.3 SECONDS (9.7-12.2) H 06/01/18 11:06 INR 1.1 06/01/18 11:06 APTT 39 SECONDS (21-34) H 06/01/18 11:06 - Constitutional Appears: Well - Head Exam Head Exam: ATRAUMATIC, NORMAL INSPECTION, NORMOCEPHALIC - Eye Exam Eye Exam: EOMI, Normal appearance, PERRL Pupil Exam: NORMAL ACCOMODATION, PERRL - ENT Exam ENT Exam: Mucous Membranes Moist, Normal Exam - Neck Exam Neck Exam: Full ROM, Normal Inspection. absent: Lymphadenopathy - Respiratory Exam Respiratory Exam: Decreased Breath Sounds - Cardiovascular Exam Cardiovascular Exam: REGULAR RHYTHM, +S1, +S2 - GI/Abdominal Exam GI & Abdominal Exam: Soft, Diminished Bowel Sounds - Rectal Exam Rectal Exam: Deferred
--- NOTE | 2018-06-17 21:53 | CP.PCM.PN ---
Subjective - Date & Time of Evaluation Date of Evaluation: 06/17/18 Time of Evaluation: 04:00 - Subjective Subjective: dictated Objective - Vital Signs/Intake and Output Vital Signs (last 24 hours): Temp Pulse Resp BP Pulse Ox 98.3 F 74 20 116/67 94 L 06/17/18 15:09 06/17/18 15:09 06/17/18 15:09 06/17/18 15:09 06/17/18 15:09 - Medications Medications: Current Medications Acetaminophen (Tylenol 325mg Tab) 650 mg PO Q6 PRN PRN Reason: Fever >100.4 F Last Admin: 06/15/18 15:13 Dose: 650 mg Albuterol/Ipratropium (Duoneb 3 Mg/0.5 Mg (3 Ml) Ud) 3 ml INH RQ6 [facility] Last Admin: 06/17/18 19:18 Dose: 3 ml Calcium Acetate (Phoslo) 667 mg PO TID [facility] Last Admin: 06/17/18 17:30 Dose: 667 mg Docusate Sodium (Colace) 100 mg PO BID [facility] Last Admin: 06/17/18 17:29 Dose: 100 mg Epoetin Ventura (Procrit) 10,000 unit IV TTS [facility] Last Admin: 06/16/18 11:22 Dose: 10,000 unit Ferric Sodium Gluconate Complex (Ferrlecit) 125 mg IVPB DAILY [facility] Stop: 06/19/18 10:01 Last Admin: 06/17/18 12:56 Dose: 125 mg Guaifenesin (Robitussin) 100 mg PO QID [facility] Last Admin: 06/17/18 14:45 Dose: 100 mg Meropenem 500 mg/ Sodium (Chloride) 100 mls @ 100 mls/hr IVPB Q12 [facility] PRN Reason: Protocol Last Admin: 06/17/18 09:28 Dose: 100 mls/hr Metronidazole (Flagyl) 500 mg in 100 mls @ 100 mls/hr IVPB Q8H [facility] PRN Reason: Protocol Last Admin: 06/17/18 18:50 Dose: 100 mls/hr Insulin Aspart (Novolog) 0 unit SC ACHS [facility] PRN Reason: Protocol Last Admin: 06/17/18 16:36 Dose: Not Given Lactobacillus Acidophilus (Bacid Acidophilus) 1 cap PO BID [facility] Last Admin: 06/17/18 17:29 Dose: 1 cap Lactulose (Enulose) 20 gm PO HS [facility] Midodrine (Proamatine) 2.5 mg PO TID [facility] Last Admin: 06/17/18 17:30 Dose: 2.5 mg Ondansetron HCl (Zofran Tab) 4 mg PO DAILY [facility] Last Admin: 06/17/18 09:28 Dose: 4 mg Ondansetron HCl (Zofran Inj) 4 mg IVP DAILY@ONCE PRN PRN Reason: Nausea/Vomiting Last Admin: 06/17/18 09:26 Dose: 4 mg Pantoprazole Sodium (Protonix Ec Tab) 40 mg PO DAILY [facility] Last Admin: 06/17/18 09:26 Dose: 40 mg Polyethylene Glycol (Miralax) 17 gm PO BID [facility] Last Admin: 06/17/18 17:29 Dose: 17 gm Rosuvastatin Calcium (Crestor) 10 mg PO HS [facility] Last Admin: 06/16/18 20:59 Dose: 10 mg Sevelamer Carbonate (Renvela) 2.4 gm PO TIDCC [facility] Last Admin: 06/17/18 17:29 Dose: 2.4 gm Tramadol HCl (Ultram) 50 mg PO Q8H PRN PRN Reason: Pain, moderate (4-7) Last Admin: 06/17/18 20:40 Dose: 50 mg - Labs Labs: 06/16/18 14:12 06/14/18 11:12 PT 12.3 SECONDS (9.7-12.2) H 06/01/18 11:06 INR 1.1 06/01/18 11:06 APTT 39 SECONDS (21-34) H 06/01/18 11:06
[2018-06-18] MEDS: Albuterol-Ipratrop 3 mg / 0.5 (3 ml) UD INH SCH ×3 (01:21→13:37)
[2018-06-18] MEDS: metroNIDAZOLE IV 500 mg/100 ml 500 MG/100 ML BAG IVPB SCH ×3 (03:02→19:13)
--- NOTE | 2018-06-18 03:27 | PN ---
DATE: 06/17/2018SUBJECTIVE: I saw that he had a PICC line today. They want to give the IV antibiotics in a rehab. The patient remains awake. He does not give much complaints. He looked little better, and he says he is getting there. PHYSICAL EXAMINATION VITAL SIGNS: T-max is 98.3, pulse 74, respirations are 20, and blood pressure 116/67. HEENT: Head is atraumatic. NECK: Supple. LUNGS: Clear. Decreased breath sounds on both bases. HEART: S1 and S2 are regular. ABDOMEN: Very flabby. EXTREMITIES: Remain with bilateral elephantiasis. LABORATORY DATA: His labs are little better now. White count is 9.8 yesterday and hemoglobin is 9.1. He is a dialysis patient. He has a dialysis catheter. His left arm fistula has clotted and will need more surgery. 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 It is unclear. Alec Boucher MD
[2018-06-18] MEDS: (Novolog) Insulin Aspart, Recombinant 100 u/ml 10 ml vial SC SCH ×3 (07:39→16:32)
--- NOTE | 2018-06-18 07:51 | CP.PCM.PN ---
Subjective - Date & Time of Evaluation Date of Evaluation: 06/18/18 Time of Evaluation: 07:49 - Subjective Subjective: feels same afebrile course; BP better good BM with meds, less abdominal pains for dialysis this AM Objective - Vital Signs/Intake and Output Vital Signs (last 24 hours): Temp Pulse Resp BP Pulse Ox 98.2 F 72 20 110/70 94 L 06/17/18 23:25 06/17/18 23:25 06/17/18 23:25 06/17/18 23:25 06/17/18 23:25 Intake and Output: 06/18/18 06/18/18 06:59 18:59 Intake Total 220 Balance 220 - Medications Medications: Current Medications Acetaminophen (Tylenol 325mg Tab) 650 mg PO Q6 PRN PRN Reason: Fever >100.4 F Last Admin: 06/15/18 15:13 Dose: 650 mg Albuterol/Ipratropium (Duoneb 3 Mg/0.5 Mg (3 Ml) Ud) 3 ml INH RQ6 [facility] Last Admin: 06/18/18 07:12 Dose: 3 ml Calcium Acetate (Phoslo) 667 mg PO TID [facility] Last Admin: 06/17/18 17:30 Dose: 667 mg Docusate Sodium (Colace) 100 mg PO BID [facility] Last Admin: 06/17/18 17:29 Dose: 100 mg Epoetin Ventura (Procrit) 10,000 unit IV TTS [facility] Last Admin: 06/16/18 11:22 Dose: 10,000 unit Ferric Sodium Gluconate Complex (Ferrlecit) 125 mg IVPB DAILY [facility] Stop: 06/19/18 10:01 Last Admin: 06/17/18 12:56 Dose: 125 mg Guaifenesin (Robitussin) 100 mg PO QID [facility] Last Admin: 06/17/18 21:59 Dose: Not Given Meropenem 500 mg/ Sodium (Chloride) 100 mls @ 100 mls/hr IVPB Q12 [facility] PRN Reason: Protocol Last Admin: 06/17/18 22:35 Dose: 100 mls/hr Metronidazole (Flagyl) 500 mg in 100 mls @ 100 mls/hr IVPB Q8H [facility] PRN Reason: Protocol Last Admin: 06/18/18 03:02 Dose: 100 mls/hr Insulin Aspart (Novolog) 0 unit SC ACHS [facility] PRN Reason: Protocol Last Admin: 06/18/18 07:39 Dose: Not Given Lactobacillus Acidophilus (Bacid Acidophilus) 1 cap PO BID [facility] Last Admin: 06/17/18 17:29 Dose: 1 cap Lactulose (Enulose) 20 gm PO HS [facility] Last Admin: 06/17/18 22:35 Dose: 20 gm Midodrine (Proamatine) 2.5 mg PO TID [facility] Last Admin: 06/17/18 17:30 Dose: 2.5 mg Ondansetron HCl (Zofran Tab) 4 mg PO DAILY [facility] Last Admin: 06/17/18 09:28 Dose: 4 mg Ondansetron HCl (Zofran Inj) 4 mg IVP DAILY@ONCE PRN PRN Reason: Nausea/Vomiting Last Admin: 06/17/18 09:26 Dose: 4 mg Pantoprazole Sodium (Protonix Ec Tab) 40 mg PO DAILY [facility] Last Admin: 06/17/18 09:26 Dose: 40 mg Polyethylene Glycol (Miralax) 17 gm PO BID [facility] Last Admin: 06/17/18 17:29 Dose: 17 gm Rosuvastatin Calcium (Crestor) 10 mg PO HS [facility] Last Admin: 06/17/18 22:35 Dose: 10 mg Sevelamer Carbonate (Renvela) 2.4 gm PO TIDCC [facility] Last Admin: 06/17/18 17:29 Dose: 2.4 gm Tramadol HCl (Ultram) 50 mg PO Q8H PRN PRN Reason: Pain, moderate (4-7) Last Admin: 06/18/18 05:46 Dose: 50 mg - Labs Labs: 06/16/18 14:12 06/14/18 11:12 PT 12.3 SECONDS (9.7-12.2) H 06/01/18 11:06 INR 1.1 06/01/18 11:06 APTT 39 SECONDS (21-34) H 06/01/18 11:06 - Constitutional Appears: No Acute Distress, Chronically Ill - Head Exam Head Exam: ATRAUMATIC, NORMAL INSPECTION - Eye Exam Eye Exam: EOMI, Normal appearance - Neck Exam Neck Exam: Normal Inspection. absent: Tenderness - Respiratory Exam Respiratory Exam: Clear to Ausculation Bilateral, NORMAL BREATHING PATTERN - Cardiovascular Exam Cardiovascular Exam: REGULAR RHYTHM, +S1 - GI/Abdominal Exam GI & Abdominal Exam: Soft, Normal Bowel Sounds - Extremities Exam Extremities Exam: Pedal Edema, Tenderness - Neurological Exam Neurological Exam: Awake, CN II-XII Intact - Skin Skin Exam: Dry, Warm Assessment and Plan (1) End stage renal disease Status: Acute (2) Hypertensive chronic kidney disease with stage 5 chronic kidney disease or end stage renal disease Status: Acute (3) Morbid obesity Status: Acute (4) Lymphedema of lower extremity Status: Chronic (5) AV graft thrombosis Status: Acute (6) Bacteremia due to Gram-negative bacteria Status: Acute (7) Cellulitis of right leg Status: Acute - Assessment and Plan (Free Text) Plan: dialysis now and TTS IV ABs monitor chemistries
[2018-06-18] MEDS: Sevelamer Carb 2.4 gm/Packet PO SCH ×3 (08:16→16:52)
[2018-06-18] MEDS: Ferric Sodium Gluconat Complex 62.5 mg/5 ml Vial IVPB SCH (09:00)
[2018-06-18 09:08] VITALS: O2SAT 100
[2018-06-18] MEDS: Pantoprazole 40 mg EC Tab PO SCH (09:39)
[2018-06-18] MEDS: Lactobacillus Acidophilus 500 MU Cap PO SCH ×2 (09:40→17:02)
[2018-06-18] MEDS: Meropenem 500 MG in Sodium Chloride 0.9% 100 ML IVPB SCH (09:40)
[2018-06-18] MEDS: POLYETHYLENE GLYCOL 3350 17 GM/Dose PACKET PO SCH ×2 (10:00→19:09)
[2018-06-18] MEDS: guaiFENesin 100 mg/5 ml Syrup UD PO SCH ×3 (10:05→17:00)
--- NOTE | 2018-06-18 10:57 | CP.PCM.PN ---
Subjective - Date & Time of Evaluation Date of Evaluation: 06/18/18 Time of Evaluation: 10:55 - Subjective Subjective: PT IN NO DISTRESS, NO CHANGE ROS ; OTHERWISE NEG. Objective - Vital Signs/Intake and Output Vital Signs (last 24 hours): Temp Pulse Resp BP Pulse Ox 97.9 F 76 20 82/46 L 100 06/18/18 09:08 06/18/18 09:08 06/18/18 09:08 06/18/18 09:08 06/18/18 09:08 Intake and Output: 06/18/18 06/18/18 06:59 18:59 Intake Total 220 Balance 220 - Medications Medications: Current Medications Acetaminophen (Tylenol 325mg Tab) 650 mg PO Q6 PRN PRN Reason: Fever >100.4 F Last Admin: 06/15/18 15:13 Dose: 650 mg Albuterol/Ipratropium (Duoneb 3 Mg/0.5 Mg (3 Ml) Ud) 3 ml INH RQ6 [facility] Last Admin: 06/18/18 07:12 Dose: 3 ml Calcium Acetate (Phoslo) 667 mg PO TID [facility] Last Admin: 06/18/18 09:39 Dose: 667 mg Docusate Sodium (Colace) 100 mg PO BID [facility] Last Admin: 06/18/18 10:00 Dose: Not Given Epoetin Ventura (Procrit) 10,000 unit IV TTS [facility] Last Admin: 06/16/18 11:22 Dose: 10,000 unit Ferric Sodium Gluconate Complex (Ferrlecit) 125 mg IVPB DAILY [facility] Stop: 06/19/18 10:01 Last Admin: 06/18/18 09:00 Dose: 125 mg Guaifenesin (Robitussin) 100 mg PO QID [facility] Last Admin: 06/18/18 10:05 Dose: Not Given Heparin Sodium (Porcine) (Heparin) 3,700 units IVP TTS [facility] Stop: 06/29/18 23:59 Meropenem 500 mg/ Sodium (Chloride) 100 mls @ 100 mls/hr IVPB Q12 [facility] PRN Reason: Protocol Last Admin: 06/18/18 09:40 Dose: 100 mls/hr Metronidazole (Flagyl) 500 mg in 100 mls @ 100 mls/hr IVPB Q8H [facility] PRN Reason: Protocol Last Admin: 06/18/18 03:02 Dose: 100 mls/hr Insulin Aspart (Novolog) 0 unit SC ACHS [facility] PRN Reason: Protocol Last Admin: 06/18/18 07:39 Dose: Not Given Lactobacillus Acidophilus (Bacid Acidophilus) 1 cap PO BID [facility] Last Admin: 06/18/18 09:40 Dose: 1 cap Lactulose (Enulose) 20 gm PO HS [facility] Last Admin: 06/17/18 22:35 Dose: 20 gm Midodrine (Proamatine) 2.5 mg PO TID [facility] Last Admin: 06/18/18 09:40 Dose: 2.5 mg Ondansetron HCl (Zofran Tab) 4 mg PO DAILY [facility] Last Admin: 06/18/18 09:40 Dose: 4 mg Ondansetron HCl (Zofran Inj) 4 mg IVP DAILY@ONCE PRN PRN Reason: Nausea/Vomiting Last Admin: 06/17/18 09:26 Dose: 4 mg Pantoprazole Sodium (Protonix Ec Tab) 40 mg PO DAILY [facility] Last Admin: 06/18/18 09:39 Dose: 40 mg Polyethylene Glycol (Miralax) 17 gm PO BID [facility] Last Admin: 06/18/18 10:00 Dose: Not Given Rosuvastatin Calcium (Crestor) 10 mg PO HS [facility] Last Admin: 06/17/18 22:35 Dose: 10 mg Sevelamer Carbonate (Renvela) 2.4 gm PO TIDCC [facility] Last Admin: 06/18/18 08:16 Dose: 2.4 gm Tramadol HCl (Ultram) 50 mg PO Q8H PRN PRN Reason: Pain, moderate (4-7) Last Admin: 06/18/18 05:46 Dose: 50 mg - Labs Labs: 06/16/18 14:12 06/14/18 11:12 PT 12.3 SECONDS (9.7-12.2) H 06/01/18 11:06 INR 1.1 06/01/18 11:06 APTT 39 SECONDS (21-34) H 06/01/18 11:06 - Constitutional Appears: No Acute Distress, Chronically Ill - Head Exam Head Exam: ATRAUMATIC, NORMOCEPHALIC - Eye Exam Eye Exam: EOMI, Normal appearance - ENT Exam ENT Exam: Mucous Membranes Dry - Neck Exam Neck Exam: Normal Inspection - Respiratory Exam Respiratory Exam: Decreased Breath Sounds. absent: Accessory Muscle Use, Respiratory Distress - Cardiovascular Exam Cardiovascular Exam: RRR, +S1, +S2 - GI/Abdominal Exam GI & Abdominal Exam: Soft Additional comments: OBESE - Rectal Exam Rectal Exam: Deferred - Extremities Exam Additional comments: BILAT LYMPHEDEMA. CHRONIC CHANGES. LE - Neurological Exam Neurological Exam: Awake, CN II-XII Intact, Oriented x3 - Psychiatric Exam Psychiatric exam: Normal Mood - Skin Skin Exam: absent: Rash Assessment and Plan (1) COPD exacerbation Status: Acute (2) AV graft thrombosis Status: Acute (3) Bacteremia due to Gram-negative bacteria Status: Acute (4) Cellulitis of right leg Status: Acute (5) ESRD needing dialysis Status: Acute (6) Morbid obesity Status: Acute (7) Anemia Status: Acute (8) Cellulitis Status: Acute (9) Diabetes Status: Acute (10) Hypertension Status: Acute (11) Iron deficiency anemia Status: Acute (12) Lymphedema Status: Acute - Assessment and Plan (Free Text) Assessment: RESP STATUS NO SIG CHANGE. CONT PULM TOILET., MONITOR O2 SAT. NEB BD., CXR REVIEWED., HD PER RENAL. CONT AB PER ID. PROG POOR., DISCUSSED WITH STAFF.
[2018-06-18] MEDS ORDERED: EPOETIN ALFA 10,000 UNIT/ML ML IV SCH (12:45)
--- NOTE | 2018-06-18 15:27 | CP.PCM.PN ---
Subjective - Date & Time of Evaluation Date of Evaluation: 06/18/18 Time of Evaluation: 02:25 - Subjective Subjective: dictated Objective - Vital Signs/Intake and Output Vital Signs (last 24 hours): Temp Pulse Resp BP Pulse Ox 36.2 F L 77 20 98/50 L 100 06/18/18 11:10 06/18/18 14:45 06/18/18 14:45 06/18/18 14:45 06/18/18 09:08 Intake and Output: 06/18/18 06/18/18 06:59 18:59 Intake Total 220 600 Balance 220 600 - Medications Medications: Current Medications Acetaminophen (Tylenol 325mg Tab) 650 mg PO Q6 PRN PRN Reason: Fever >100.4 F Last Admin: 06/15/18 15:13 Dose: 650 mg Albuterol/Ipratropium (Duoneb 3 Mg/0.5 Mg (3 Ml) Ud) 3 ml INH RQ6 [facility] Last Admin: 06/18/18 13:37 Dose: 3 ml Calcium Acetate (Phoslo) 667 mg PO TID [facility] Last Admin: 06/18/18 13:19 Dose: Not Given Docusate Sodium (Colace) 100 mg PO BID [facility] Last Admin: 06/18/18 10:00 Dose: Not Given Epoetin Ventura (Procrit) 10,000 unit IV TTS [facility] Last Admin: 06/18/18 13:09 Dose: 10,000 unit Ferric Sodium Gluconate Complex (Ferrlecit) 125 mg IVPB DAILY [facility] Stop: 06/19/18 10:01 Last Admin: 06/18/18 09:00 Dose: 125 mg Guaifenesin (Robitussin) 100 mg PO QID [facility] Last Admin: 06/18/18 13:20 Dose: Not Given Heparin Sodium (Porcine) (Heparin) 3,700 units IVP TTS [facility] Stop: 06/29/18 23:59 Last Admin: 06/18/18 15:06 Dose: 3,700 units Meropenem 500 mg/ Sodium (Chloride) 100 mls @ 100 mls/hr IVPB Q12 [facility] PRN Reason: Protocol Last Admin: 06/18/18 09:40 Dose: 100 mls/hr Metronidazole (Flagyl) 500 mg in 100 mls @ 100 mls/hr IVPB Q8H [facility] PRN Reason: Protocol Last Admin: 06/18/18 03:02 Dose: 100 mls/hr Insulin Aspart (Novolog) 0 unit SC ACHS [facility] PRN Reason: Protocol Last Admin: 06/18/18 11:30 Dose: Not Given Lactobacillus Acidophilus (Bacid Acidophilus) 1 cap PO BID [facility] Last Admin: 06/18/18 09:40 Dose: 1 cap Lactulose (Enulose) 20 gm PO HS [facility] Last Admin: 06/17/18 22:35 Dose: 20 gm Midodrine (Proamatine) 2.5 mg PO TID [facility] Last Admin: 06/18/18 13:19 Dose: Not Given Ondansetron HCl (Zofran Tab) 4 mg PO DAILY [facility] Last Admin: 06/18/18 09:40 Dose: 4 mg Ondansetron HCl (Zofran Inj) 4 mg IVP DAILY@ONCE PRN PRN Reason: Nausea/Vomiting Last Admin: 06/17/18 09:26 Dose: 4 mg Pantoprazole Sodium (Protonix Ec Tab) 40 mg PO DAILY [facility] Last Admin: 06/18/18 09:39 Dose: 40 mg Polyethylene Glycol (Miralax) 17 gm PO BID [facility] Last Admin: 06/18/18 10:00 Dose: Not Given Rosuvastatin Calcium (Crestor) 10 mg PO HS [facility] Last Admin: 06/17/18 22:35 Dose: 10 mg Sevelamer Carbonate (Renvela) 2.4 gm PO TIDCC [facility] Last Admin: 06/18/18 12:00 Dose: Not Given Tramadol HCl (Ultram) 50 mg PO Q8H PRN PRN Reason: Pain, moderate (4-7) Last Admin: 06/18/18 05:46 Dose: 50 mg - Labs Labs: 06/16/18 14:12 06/14/18 11:12 PT 12.3 SECONDS (9.7-12.2) H 06/01/18 11:06 INR 1.1 06/01/18 11:06 APTT 39 SECONDS (21-34) H 06/01/18 11:06
--- NOTE | 2018-06-18 15:31 | CP.PCM.PN ---
Subjective - Date & Time of Evaluation Date of Evaluation: 06/18/18 Time of Evaluation: 09:00 - Subjective Subjective: clinically same Objective - Vital Signs/Intake and Output Vital Signs (last 24 hours): Temp Pulse Resp BP Pulse Ox 36.2 F L 77 20 98/50 L 100 06/18/18 11:10 06/18/18 14:45 06/18/18 14:45 06/18/18 14:45 06/18/18 09:08 Intake and Output: 06/18/18 06/18/18 06:59 18:59 Intake Total 220 600 Balance 220 600 - Medications Medications: Current Medications Acetaminophen (Tylenol 325mg Tab) 650 mg PO Q6 PRN PRN Reason: Fever >100.4 F Last Admin: 06/15/18 15:13 Dose: 650 mg Albuterol/Ipratropium (Duoneb 3 Mg/0.5 Mg (3 Ml) Ud) 3 ml INH RQ6 [facility] Last Admin: 06/18/18 13:37 Dose: 3 ml Calcium Acetate (Phoslo) 667 mg PO TID [facility] Last Admin: 06/18/18 13:19 Dose: Not Given Docusate Sodium (Colace) 100 mg PO BID [facility] Last Admin: 06/18/18 10:00 Dose: Not Given Epoetin Ventura (Procrit) 10,000 unit IV TTS [facility] Last Admin: 06/18/18 13:09 Dose: 10,000 unit Ferric Sodium Gluconate Complex (Ferrlecit) 125 mg IVPB DAILY [facility] Stop: 06/19/18 10:01 Last Admin: 06/18/18 09:00 Dose: 125 mg Guaifenesin (Robitussin) 100 mg PO QID [facility] Last Admin: 06/18/18 13:20 Dose: Not Given Heparin Sodium (Porcine) (Heparin) 3,700 units IVP TTS [facility] Stop: 06/29/18 23:59 Last Admin: 06/18/18 15:06 Dose: 3,700 units Meropenem 500 mg/ Sodium (Chloride) 100 mls @ 100 mls/hr IVPB Q12 JOSSIE PRN Reason: Protocol Last Admin: 06/18/18 09:40 Dose: 100 mls/hr Metronidazole (Flagyl) 500 mg in 100 mls @ 100 mls/hr IVPB Q8H JOS[facility]E PRN Reason: Protocol Last Admin: 06/18/18 03:02 Dose: 100 mls/hr Insulin Aspart (Novolog) 0 unit SC ACHS [facility] PRN Reason: Protocol Last Admin: 06/18/18 11:30 Dose: Not Given Lactobacillus Acidophilus (Bacid Acidophilus) 1 cap PO BID [facility] Last Admin: 06/18/18 09:40 Dose: 1 cap Lactulose (Enulose) 20 gm PO HS [facility] Last Admin: 06/17/18 22:35 Dose: 20 gm Midodrine (Proamatine) 2.5 mg PO TID [facility] Last Admin: 06/18/18 13:19 Dose: Not Given Ondansetron HCl (Zofran Tab) 4 mg PO DAILY [facility] Last Admin: 06/18/18 09:40 Dose: 4 mg Ondansetron HCl (Zofran Inj) 4 mg IVP DAILY@ONCE PRN PRN Reason: Nausea/Vomiting Last Admin: 06/17/18 09:26 Dose: 4 mg Pantoprazole Sodium (Protonix Ec Tab) 40 mg PO DAILY [facility] Last Admin: 06/18/18 09:39 Dose: 40 mg Polyethylene Glycol (Miralax) 17 gm PO BID [facility] Last Admin: 06/18/18 10:00 Dose: Not Given Rosuvastatin Calcium (Crestor) 10 mg PO HS [facility] Last Admin: 06/17/18 22:35 Dose: 10 mg Sevelamer Carbonate (Renvela) 2.4 gm PO TIDCC [facility] Last Admin: 06/18/18 12:00 Dose: Not Given Tramadol HCl (Ultram) 50 mg PO Q8H PRN PRN Reason: Pain, moderate (4-7) Last Admin: 06/18/18 05:46 Dose: 50 mg - Labs Labs: 06/16/18 14:12 06/14/18 11:12 PT 12.3 SECONDS (9.7-12.2) H 06/01/18 11:06 INR 1.1 06/01/18 11:06 APTT 39 SECONDS (21-34) H 06/01/18 11:06 - Constitutional Appears: Well - Head Exam Head Exam: ATRAUMATIC, NORMAL INSPECTION, NORMOCEPHALIC - Eye Exam Eye Exam: EOMI, Normal appearance, PERRL Pupil Exam: NORMAL ACCOMODATION, PERRL - ENT Exam ENT Exam: Mucous Membranes Moist, Normal Exam - Neck Exam Neck Exam: Full ROM, Normal Inspection. absent: Lymphadenopathy - Respiratory Exam Respiratory Exam: Decreased Breath Sounds - Cardiovascular Exam Cardiovascular Exam: REGULAR RHYTHM, +S1, +S2 - GI/Abdominal Exam GI & Abdominal Exam: Soft, Diminished Bowel Sounds - Rectal Exam Rectal Exam: Deferred
[2018-06-18 16:35] VITALS: BP 105/57; PULSE 83; RESP 18; TEMP 98.2
--- NOTE | 2018-06-18 21:16 | PN ---
DATE: 06/18/2018 SUBJECTIVE: The patient was having dialysis today. He was very out . The respiratory therapist also walked in at the same time to give him treatment. He was seen by Dr. Stone. He appeared to be in no acute respiratory distress. I have to renew his IV Flagyl. PHYSICAL EXAMINATION: VITAL SIGNS: Stable. He is afebrile. Heart rate is 77, blood pressure is 117/98 through 98/50, respirations are 20. HEENT: Head is atraumatic. NECK: Supple. LUNGS: Clear. Decreased breath sounds. HEART: S1 and S2 are regular. ABDOMEN: Flabby. EXTREMITIES: Remain with lymphangitis and elephantiasis. Plan is to continue present antibiotics, and he is getting Flagyl and Merrem. I will renew that and we will follow. The patient has Acinetobacter bacteremia. Also has a clotted AV graft. He is on treatment. He is on antibiotics, and he did have a recent small bowel obstruction and has improved and he is being monitored. Alec Boucher MD
== END 2018-06-18 21:17 | disposition home or self-care (01) | DRG 871 ==
LOC: C.ER 10:27 → C.9E 11:37 → C.5S 15:28 → C.3T 06-13 22:25 → C.6T 06-15 00:10
PROVIDERS: ADMIT Internal Medicine Nephrology; ATTEND Internal Medicine Nephrology
PROC: 02HV33Z Insertion of Infusion Device into Superior Vena Cava, Percutaneous Approach (ICD-10-PCS; 2018-06-02)
PROC: B518ZZA Fluoroscopy of Superior Vena Cava, Guidance (ICD-10-PCS; 2018-06-02)
PROC: 5A1D70Z Performance of Urinary Filtration, Intermittent, Less than 6 Hours Per Day (ICD-10-PCS; 2018-06-02)
PROC: 0JH63XZ Insertion of Tunneled Vascular Access Device into Chest Subcutaneous Tissue and Fascia, Percutaneous Approach (ICD-10-PCS; principal; 2018-06-02 13:30)
PROC: 5A1D70Z Performance of Urinary Filtration, Intermittent, Less than 6 Hours Per Day (ICD-10-PCS; 2018-06-04)
PROC: 5A1D70Z Performance of Urinary Filtration, Intermittent, Less than 6 Hours Per Day (ICD-10-PCS; 2018-06-07)
PROC: 5A1D70Z Performance of Urinary Filtration, Intermittent, Less than 6 Hours Per Day (ICD-10-PCS; 2018-06-09)
PROC: 5A1D70Z Performance of Urinary Filtration, Intermittent, Less than 6 Hours Per Day (ICD-10-PCS; 2018-06-11)
PROC: 5A1D70Z Performance of Urinary Filtration, Intermittent, Less than 6 Hours Per Day (ICD-10-PCS; 2018-06-13)
PROC: 5A1D70Z Performance of Urinary Filtration, Intermittent, Less than 6 Hours Per Day (ICD-10-PCS; 2018-06-16)
PROC: 5A1D70Z Performance of Urinary Filtration, Intermittent, Less than 6 Hours Per Day (ICD-10-PCS; 2018-06-18)
DX: A41.50 Gram-negative sepsis, unspecified (principal); N18.6 End stage renal disease; R65.21 Severe sepsis with septic shock; I12.0 Hypertensive chronic kidney disease with stage 5 chronic kidney disease or end stage renal disease; J44.1 Chronic obstructive pulmonary disease with (acute) exacerbation; K56.609 Unspecified intestinal obstruction, unspecified as to partial versus complete obstruction; L03.115 Cellulitis of right lower limb; L03.116 Cellulitis of left lower limb; L03.314 Cellulitis of groin; T82.868A Thrombosis due to vascular prosthetic devices, implants and grafts, initial encounter; T82.818A Embolism due to vascular prosthetic devices, implants and grafts, initial encounter; D50.9 Iron deficiency anemia, unspecified; E11.22 Type 2 diabetes mellitus with diabetic chronic kidney disease; E88.81 Metabolic syndrome and other insulin resistance; I89.1 Lymphangitis; I89.0 Lymphedema, not elsewhere classified; K21.9 Gastro-esophageal reflux disease without esophagitis; K80.20 Calculus of gallbladder without cholecystitis without obstruction; K76.0 Fatty (change of) liver, not elsewhere classified; Y83.2 Surgical operation with anastomosis, bypass or graft as the cause of abnormal reaction of the patient, or of later complication, without mention of misadventure at the time of the procedure; Z68.43 Body mass index [BMI] 50.0-59.9, adult; E66.01 Morbid (severe) obesity due to excess calories; G89.29 Other chronic pain; F17.210 Nicotine dependence, cigarettes, uncomplicated; Z99.2 Dependence on renal dialysis; Z88.0 Allergy status to penicillin

== ENCOUNTER 2018-06-30 09:37 | Inpatient (IN) | payer MEDICARE ==
[2018-06-30 10:03] VITALS: BMI 62.6
[2018-06-30] MEDS ORDERED: Sodium Chloride 0.9% 500 ML IV ONE (10:39)
--- NOTE | 2018-06-30 10:53 | C.PDOC ---
History Of Present Illness 52yo male, with past medical history of hypertension, COPD, ESRD, chronic kidney disease, obesity, comes to ER from [facility] as he was there after a recent admission at [facility] [place] due to sepsis. Patient states he was at dialysis today and at the end of the session he felt left sided chest pain radiating to hi left arm with associated shortness of breath. Upon arrival, patient noted to be mildly tachycardic and hypotnesive. Although patient presents with SIRS, there is no indication he has an infection. Patient reports he is "only getting a quarter of the oxygen I need." Patient denies fever, chills, no dysuria, cough, no URI symptoms. Patient states his blood pleasure runs low, states he felt is was particularly low this morning and he told the rehab but he was still sent to HD. Time Seen by Provider: 06/30/18 10:20 Chief Complaint (Nursing): Chest Pain History Per: Patient History/Exam Limitations: no limitations Onset/Duration Of Symptoms: Hrs Current Symptoms Are (Timing): Still Present Severity: None Pain Scale Rating Of: 0 Quality: "Pain" Associated Symptoms: denies: Nausea, Dyspnea, Diaphoresis, Syncope Past Medical History Reviewed: Historical Data, Nursing Documentation, Vital Signs Vital Signs: Last Vital Signs Temp 98.2 F 07/01/18 04:00 Pulse 97 H 07/01/18 09:48 Resp 22 07/01/18 09:48 BP 86/45 L 07/01/18 09:48 Pulse Ox 100 07/01/18 06:00 - Medical History PMH: Anemia, Asthma, Bronchitis, COPD, Diabetes, HTN, Peripheral Edema, End Stage Renal Disease, Chronic Kidney Disease, Chronic Pain Denies: Sleep Apnea Surgical History: No Surg Hx - [facility] Procedures (06/01/18) DIALYSIS ARTERIOVENOSTOM (05/07/14) DILATION OF LEFT BRACHIAL VEIN, PERCUTANEOUS APPROACH (08/04/16) DRESSING OF WOUND NEC (05/29/14) EXTIRPATION OF MATTER FROM L BRACH ART, PERC APPROACH (08/04/16) EXTIRPATION OF MATTER FROM LEFT BRACHIAL VEIN, PERC APPROACH (08/04/16) FLUOROSCOPY OF SUPERIOR VENA CAVA, GUIDANCE (06/01/18) HEMODIALYSIS (05/29/14) INSERTION OF INFUSION DEV INTO SUP VENA CAVA, PERC APPROACH (06/01/18) INSERTION OF VAD INTO CHEST SUBCU/FASCIA, PERC APPROACH (06/01/18) OTHER FASCIECTOMY (05/29/14) PACKED CELL TRANSFUSION (05/29/14) PERCUTAN NEEDLE BIOPSY OF KIDNEY (01/30/14) PERFORMANCE OF URINARY FILTRATION, MULTIPLE (08/04/17) ULTRASONOGRAPHY OF SUPERIOR VENA CAVA, GUIDANCE (10/22/17) VENOUS CATHETERIZATION FOR RENAL DIALYSIS (01/18/14) VENOUS CATHETERIZATION NEC (09/22/13) Family History: States: No Known Family Hx - Social History Hx Tobacco Use: No Hx Alcohol Use: Yes (social) Hx Substance Use: No - Immunization History Hx Tetanus Toxoid Vaccination: Yes (w/in 5 years) Hx Influenza Vaccination: Yes Hx Pneumococcal Vaccination: No Review Of Systems Except As Marked, All Systems Reviewed And Found Negative. Constitutional: Negative for: Fever, Chills Cardiovascular: Positive for: Chest Pain Respiratory: Positive for: Shortness of Breath Gastrointestinal: Negative for: Nausea, Vomiting, Abdominal Pain Musculoskeletal: Positive for: Arm Pain (left) Neurological: Positive for: Headache Physical Exam - Physical Exam Appears: Non-toxic, No Acute Distress, Other (morbidly obese) Skin: Normal Color, Warm, Dry Head: Normacephalic Eye(s): bilateral: Normal Inspection Oral Mucosa: Moist Neck: Normal ROM, Supple Chest: Symmetrical Cardiovascular: Rhythm Regular Respiratory: Other (distant breath sounds ) Gastrointestinal/Abdominal: Soft, No Tenderness, Other (obese abomen) Back: Normal Inspection Extremity: No Pedal Edema, Other (venous statsis changes,right > left) Neurological/Psych: Oriented x3 ED Course And Treatment - Laboratory Results Result Diagrams: 07/01/18 09:32 06/30/18 10:59 ECG: Interpreted By Me, Viewed By Me ECG Rhythm: Sinus Tachycardia Interpretation Of ECG: no ST/T changes Rate From EC O2 Sat by Pulse Oximetry: 98 (RA) Pulse Ox Interpretation: Normal Medical Decision Making Medical Decision Making: Plan: -- Labs -- EKG -- CXR -- IV Fluids Case discussed with Dr. Lucy Gaming and patient to be admitted to r/o ACS, unstable angina 1332 Documented blood pressure is unreliable as the pressure is taken from patient's forearm. Currently, patient is asymptomatic. BP taken with right sized cuff, still low, 74/52 Patient seen by ICU for persistent hypotension, recommended albumin. Disposition Discussed With : Aminta Gaming Doctor Will See Patient In The: Hospital Counseled Patient/Family Regarding: Diagnosis - Disposition Disposition: HOSPITALIZED Disposition Time: 10:53 Condition: GUARDED - Clinical Impression Clinical Impression: Chest pain at rest - Scribe Statement The provider has reviewed the documentation as recorded by the Lizeth Mohan Provider Attestation: All medical record entries made by the Lizeth were at my direction and personally dictated by me. I have reviewed the chart and agree that the record accurately reflects my personal performance of the history, physical exam, medical decision making, and the department course for this patient. I have also personally directed, reviewed, and agree with the discharge instructions and disposition. Decision To Admit - Pt Status Changed To: Hospital Disposition Of: Observation - . Bed Request Type: Telemetry Patient Diagnosis: Chest pain at rest
[2018-06-30 11:04] LABS: ABG ALLEN TEST POS; ARTERIAL BLOOD GAS HCO3 27.5 mmol/L (21-28); ARTERIAL BLOOD GAS PCO2 48 mm/Hg (35-45); ARTERIAL BLOOD GAS PH 7.39 (7.35-7.45); ARTERIAL BLOOD GAS PO2 112 mm/Hg (80-100); ARTERIAL BLOOD GAS TCO2 30.6 mmol/L (22-28)
--- NOTE | 2018-06-30 11:08 | RAD ---
Date of service: 06/30/2018 PROCEDURE: CHEST RADIOGRAPH, 1 VIEW HISTORY: chest pain COMPARISON: 06/11/2018. FINDINGS: The right-sided double-lumen dialysis catheter terminates at the cavoatrial junction. LUNGS: There is interval significant improved aeration in both lungs. No focal consolidation or pulmonary venous congestion. PLEURA: No pneumothorax or pleural fluid seen. CARDIOVASCULAR: Persistent severe cardiomegaly. OSSEOUS STRUCTURES: No significant abnormalities. VISUALIZED UPPER ABDOMEN: Normal. OTHER FINDINGS: None. IMPRESSION: Interval significant improvement in the aeration of the lungs without significant pulmonary venous congestion or consolidation.
[2018-06-30 11:11] LABS: BASO # 0.1 K/uL (0.0-0.2); BASO % 1.7 % (0.0-2.0); EOS # 0.2 K/uL (0.0-0.7); LYMPH # 1.3 K/uL (1.0-4.3); LYMPH % 18.4 % (20.0-40.0); MEAN CELL VOLUME 75.6 fL (80.0-94.0); MEAN CORPUSCULAR HEMOGLOBIN 24.1 pg (27.0-31.0); MEAN CORPUSCULAR HGB CONC 31.9 g/dL (33.0-37.0); MEAN PLATELET VOLUME 8.4 fL (7.2-11.7); MONO # 0.9 K/uL (0.0-0.8); MONO % 13.1 % (0.0-10.0); NEUT # 4.6 K/uL (1.8-7.0); NEUT % 63.8 % (50.0-75.0); NRBC % 0.1 % (0.0-2.0); RBC 3.34 Mil/uL (4.40-5.90); RED CELL DISTRIBUTION WIDTH 19.2 % (11.5-14.5); WHITE BLOOD COUNT 7.2 K/uL (4.8-10.8)
[2018-06-30 11:35] LABS: ALB/GLOB RATIO 0.7 (1.0-2.1); ALBUMIN 3.3 g/dL (3.5-5.0); ALT/SGPT 12 U/L (21-72); AST/SGOT 28 U/L (17-59); BLOOD UREA NITROGEN 23 mg/dL (9-20); CALCIUM 8.6 mg/dl (8.6-10.4); GFR AFRICAN-AMERICAN 17; GFR NON-AFRICAN AMERICAN 14
[2018-06-30 11:42] LABS: B-TYPE NATRIURETIC PEPTIDE 20600 pg/mL (0-900)
[2018-06-30] MEDS ORDERED: Piperacillin/Tazobact 3.375 GM in Sodium Chloride 100 ML IVPB SCH (12:30)
[2018-06-30] MEDS ORDERED: Vancomycin 1 GM in Sodium Chloride 0.9% 200 ML IVPB STA (12:31)
[2018-06-30] MEDS ORDERED: Sodium Chloride 0.9% 250 ML IV ONE ×2 (14:19→14:42)
--- NOTE | 2018-06-30 16:29 | CP.PCM.CON ---
<CelsaChuck - Last Filed: 06/30/18 16:47> History of Present Illness - History of Present Illness History of Present Illness: Chuck Steen DO PGY-1, ICU consult note for Dr. Nunes CC: dizziness HPI: Pt's chart and records were reviewed prior to evaluating the patient. This is a 52 year old AA male with a past medical history of morbid obesity, chronic lower extremity swelling, ESRD on HD, DM, HTN, COPD, who presented from dialysis center via EMS to ED with complaints of dizziness and chest pain. Patient states that he was in his care home today when he got into an argument with an aide, and subsequently felt pain in his chest radiating to the "left pectoral muscle, down the left arm and to the wrist." He reports that the pain went away, but his dizziness worsened. Pt states that he felt like his blood pressure was low so he had the staff check his vitals; he was noted be be hypoglycemic and was told to eat something. He later went to dialysis, where he continued to complain of feeling like his blood pressure was low. Pt reports that over a span of three hours he had, "about one and a quarter liters" removed until his dizziness and lightheadedness worsened and the dialysis staff noted hypotension. In the ED, pt's initial BP was noted to be 78/58 (MAP 64), with similar subsequent readings. ICU was consulted for hypotension and chest pain. Pt was seen and examined at bedside. Pt reports that his chest pain has been alleviated since leaving the care home. Pt endorses "labored breathing," and lightheadedness/dizziness when moving around. Pt denies visual changes, LOC. A 12-point ROS was reviewed and is otherwise unremarkable. Past medical records reviewed. PMH: morbid obesity, chronic lower extremity swelling, ESRD on HD, DM, HTN, COPD PSH: left AV fistula (for dialysis) Allergies: penicillins, tazobactam, piperacillin, pet dander Social history: smokes 1/2 PPD cigarettes. No ETOH use. Review of Systems - Review of Systems All systems: reviewed and no additional remarkable complaints except (as per HPI ) Past Patient History - Infectious Disease Hx of Infectious Diseases: None - Past Medical History & Family History Past Medical History?: Yes - Past Social History Smoking Status: Current Some Days Smoker - CARDIAC Hx Hypertension: Yes Hx Peripheral Edema: Yes - PULMONARY Hx Asthma: Yes Hx Bronchitis: Yes Hx Chronic Obstructive Pulmonary Disease (COPD): Yes Hx Sleep Apnea: No - NEUROLOGICAL Hx Neurological Disorder: No - HEENT Hx HEENT Problems: No - RENAL Hx Chronic Kidney Disease: Yes - ENDOCRINE/METABOLIC Hx Diabetes Mellitus Type 2: Yes - HEMATOLOGICAL/ONCOLOGICAL Hx Anemia: Yes - INTEGUMENTARY Hx Dermatological Problems: Yes Hx Cellulitis: Yes (BILATERAL LEGS) - MUSCULOSKELETAL/RHEUMATOLOGICAL Hx Falls: No - GASTROINTESTINAL Hx Gastrointestinal Disorders: Yes Hx Gastroesophageal Reflux: Yes - GENITOURINARY/GYNECOLOGICAL Hx Genitourinary Disorders: No - PSYCHIATRIC Hx Substance Use: No - SURGICAL HISTORY Hx Surgeries: Yes (Left arm AV Fistula) Hx Vascular Surgery: Yes ([facility]) - ANESTHESIA Hx Anesthesia: Yes Hx Anesthesia Reactions: No Hx Malignant Hyperthermia: No Meds Allergies/Adverse Reactions: Allergies Allergy/AdvReac Type Severity Reaction Status Date / Time Penicillins Allergy Verified 06/30/18 10:02 tazobactam [From Zosyn] Allergy Verified 06/30/18 10:02 piperacillin AdvReac ITCHING, Verified 06/30/18 10:02 SHORTNESS OF BREATH PET DANDER Allergy Severe CONGESTION Uncoded 06/30/18 10:02 - Medications Medications: Current Medications Albumin Human (Albumin Human 25% (12.5 Gm/50 Ml)) 12.5 gm IV Q2H [facility] Stop: 06/30/18 18:31 Piperacillin Sod/Tazobactam (Sod 3.375 gm/ Sodium Chloride) 100 mls @ 200 mls/ hr IVPB Q8H JOSSIE PRN Reason: Protocol Last Admin: 06/30/18 13:05 Dose: Not Given Physical Exam - Head Exam Head Exam: ATRAUMATIC, NORMAL INSPECTION - Eye Exam Eye Exam: EOMI - ENT Exam ENT Exam: Mucous Membranes Dry - Neck Exam Neck exam: Positive for: Normal Inspection - Respiratory Exam Respiratory Exam: NORMAL BREATHING PATTERN. absent: Respiratory Distress - Cardiovascular Exam Cardiovascular Exam: REGULAR RHYTHM - GI/Abdominal Exam GI & Abdominal Exam: Soft (morbid obesity) - Extremities Exam Additional comments: (+) severe bilateral venous stasis - Psychiatric Exam Psychiatric exam: Normal Affect - Skin Skin Exam: Dry, Normal Color Results - Vital Signs Recent Vital Signs: Last Vital Signs Temp 100 F H 06/30/18 15:00 Pulse 100 H 06/30/18 15:30 Resp 20 06/30/18 15:30 BP 86/53 L 06/30/18 15:30 Pulse Ox 100 06/30/18 15:30 - Labs Result Diagrams: 06/30/18 10:59 06/30/18 10:59 Labs: Laboratory Results - last 24 hr 06/30/18 06/30/18 06/30/18 10:41 10:59 10:59 WBC 7.2 RBC 3.34 L Hgb 8.0 L Hct 25.2 L MCV 75.6 L MCH 24.1 L MCHC 31.9 L RDW 19.2 H Plt Count 288 MPV 8.4 Neut % (Auto) 63.8 Lymph % (Auto) 18.4 L Faulk % (Auto) 13.1 H Eos % (Auto) 3.0 Baso % (Auto) 1.7 Neut # (Auto) 4.6 Lymph # (Auto) 1.3 Faulk # (Auto) 0.9 H Eos # (Auto) 0.2 Baso # (Auto) 0.1 Puncture Site pCO2 pO2 HCO3 ABG pH ABG Total CO2 ABG O2 Saturation ABG Base Excess Shankar Test ABG Potassium Glucose Lactate Liter Flow Sodium 136 Potassium 4.0 Chloride 95 L Carbon Dioxide 28 Anion Gap 16 BUN 23 H Creatinine 4.5 H Est GFR ( Amer) 17 Est GFR (Non-Af Amer) 14 POC Glucose (mg/dL) 95 Random Glucose 100 Calcium 8.6 Total Bilirubin 0.4 AST 28 ALT 12 L D Alkaline Phosphatase 102 Troponin I < 0.0120 NT-Pro-B Natriuret Pep 93731 H Total Protein 7.8 Albumin 3.3 L Globulin 4.5 H Albumin/Globulin Ratio 0.7 L Arterial Blood Potassium 06/30/18 11:00 WBC RBC Hgb Hct MCV MCH MCHC RDW Plt Count MPV Neut % (Auto) Lymph % (Auto) Faulk % (Auto) Eos % (Auto) Baso % (Auto) Neut # (Auto) Lymph # (Auto) Faulk # (Auto) Eos # (Auto) Baso # (Auto) Puncture Site Lb pCO2 48 H pO2 112 H HCO3 27.5 ABG pH 7.39 ABG Total CO2 30.6 H ABG O2 Saturation 99.0 H ABG Base Excess 3.3 H Shankar Test Pos ABG Potassium 3.9 Glucose 93 Lactate 2.4 H Liter Flow 3.0 Sodium 133.0 Potassium Chloride 96.0 L Carbon Dioxide Anion Gap BUN Creatinine Est GFR ( Amer) Est GFR (Non-Af Amer) POC Glucose (mg/dL) Random Glucose Calcium Total Bilirubin AST ALT Alkaline Phosphatase Troponin I NT-Pro-B Natriuret Pep Total Protein Albumin Globulin Albumin/Globulin Ratio Arterial Blood Potassium 3.9 Assessment & Plan - Assessment and Plan (Free Text) Assessment: This is a 52 year old AA male with a past medical history of morbid obesity, chronic lower extremity swelling, ESRD on HD, DM, HTN, COPD, who presented from dialysis center via EMS to ED with complaints of dizziness and chest pain. Chest pain quickly resolved, but he continued to feel like his blood pressure was low. He proceeded to his scheduled dialysis, where over a span of three hours he had, "about one and a quarter liters" removed until his dizziness and lightheadedness worsened and the dialysis staff noted hypotension. In the ED, pt's initial BP was noted to be 78/58 (MAP 64), with similar subsequent readings. ICU was consulted for hypotension. At time of arrival, pt's BP was 74/ 52 mmHg. 1. Hypotension likely secondary to volume depletion worsened by dialysis - suspected volume depletion - HR 99 bpm, BP 73/54 MAP 60 - will treat with Albumin 25% 12.5g IV at 25 mL/hr x3 Pt is clinically stable and safe for management on the medical floor or telemetry. Please re-consult if pt's condition worsens or condition does not improve. Thank you. Case reviewed and discussed with attending physician, Dr. Nunes <Jose Angel Nunes - Last Filed: 06/30/18 18:34> Meds - Medications Medications: Current Medications Albumin Human (Albumin Human 25% (12.5 Gm/50 Ml)) 12.5 gm IV Q2H JOSSIE Stop: 06/30/18 18:31 Last Admin: 06/30/18 18:30 Dose: 12.5 gm Piperacillin Sod/Tazobactam (Sod 3.375 gm/ Sodium Chloride) 100 mls @ 200 mls/ hr IVPB Q8H JOSSIE PRN Reason: Protocol Last Admin: 06/30/18 13:05 Dose: Not Given Results - Vital Signs Recent Vital Signs: Last Vital Signs Temp 98.4 F 06/30/18 17:07 Pulse 100 H 06/30/18 17:07 Resp 20 06/30/18 17:07 BP 132/62 06/30/18 17:07 Pulse Ox 100 06/30/18 17:07 - Labs Result Diagrams: 06/30/18 10:59 06/30/18 10:59 Labs: Laboratory Results - last 24 hr 06/30/18 06/30/18 06/30/18 10:41 10:59 10:59 WBC 7.2 RBC 3.34 L Hgb 8.0 L Hct 25.2 L MCV 75.6 L MCH 24.1 L MCHC 31.9 L RDW 19.2 H Plt Count 288 MPV 8.4 Neut % (Auto) 63.8 Lymph % (Auto) 18.4 L Faulk % (Auto) 13.1 H Eos % (Auto) 3.0 Baso % (Auto) 1.7 Neut # (Auto) 4.6 Lymph # (Auto) 1.3 Faulk # (Auto) 0.9 H Eos # (Auto) 0.2 Baso # (Auto) 0.1 Puncture Site pCO2 pO2 HCO3 ABG pH ABG Total CO2 ABG O2 Saturation ABG Base Excess Shankar Test ABG Potassium Glucose Lactate Liter Flow Sodium 136 Potassium 4.0 Chloride 95 L Carbon Dioxide 28 Anion Gap 16 BUN 23 H Creatinine 4.5 H Est GFR ( Amer) 17 Est GFR (Non-Af Amer) 14 POC Glucose (mg/dL) 95 Random Glucose 100 Calcium 8.6 Total Bilirubin 0.4 AST 28 ALT 12 L D Alkaline Phosphatase 102 Troponin I < 0.0120 NT-Pro-B Natriuret Pep 75812 H Total Protein 7.8 Albumin 3.3 L Globulin 4.5 H Albumin/Globulin Ratio 0.7 L Arterial Blood Potassium 06/30/18 11:00 WBC RBC Hgb Hct MCV MCH MCHC RDW Plt Count MPV Neut % (Auto) Lymph % (Auto) Faulk % (Auto) Eos % (Auto) Baso % (Auto) Neut # (Auto) Lymph # (Auto) Faulk # (Auto) Eos # (Auto) Baso # (Auto) Puncture Site Lb pCO2 48 H pO2 112 H HCO3 27.5 ABG pH 7.39 ABG Total CO2 30.6 H ABG O2 Saturation 99.0 H ABG Base Excess 3.3 H Shankar Test Pos ABG Potassium 3.9 Glucose 93 Lactate 2.4 H Liter Flow 3.0 Sodium 133.0 Potassium Chloride 96.0 L Carbon Dioxide Anion Gap BUN Creatinine Est GFR ( Amer) Est GFR (Non-Af Amer) POC Glucose (mg/dL) Random Glucose Calcium Total Bilirubin AST ALT Alkaline Phosphatase Troponin I NT-Pro-B Natriuret Pep Total Protein Albumin Globulin Albumin/Globulin Ratio Arterial Blood Potassium 3.9 Attending/Attestation - Attestation I have personally seen and examined this patient.: Yes I have fully participated in the care of the patient.: Yes I have reviewed all pertinent clinical information: Yes Notes (Text): 06/30/18 18:31 I have seen and examined the patient. Medical records, lab studies, and imaging were reviewed by me and a management plan was formulated on multidisciplinary rounds with resident Dr. Steen. I agree with their documented assessment and plan. Patient had hypovolemia induced hypotension. He felt his blood pressure was low prior to dialysis, and then unfortunately had dialysis which removed over 1L of fluid. In the ED he p/w symptomatic hypovolemia, which improved with albumin infusions and intermittent bolusing. Now asymptomatic. He was clinically stable enough for continued management on telemetry floors. Please reconsult ICU if there are any changes in his clinical status. Critical Care Time 35 minutes. Multi-disciplinary rounds were performed with house staff, nursing, speech therapy, respiratory therapy, pharmacy and nutrition with integrated input from the primary team/attending and other consulting services. The documented time is cumulative and includes review of patient data/exams/labs/chart review and examination of the patient on rounds and throughout the day; time is exclusive of any procedures or teaching time.
[2018-06-30] MEDS: Albumin Human 25% (12.5 gm/50 ml) IV SCH ×3 (16:42→18:30)
--- NOTE | 2018-06-30 20:21 | CP.PCM.HP ---
Past Patient History - Infectious Disease Hx of Infectious Diseases: None - Past Medical History & Family History Past Medical History?: Yes - Past Social History Smoking Status: Former Smoker - CARDIAC Hx Hypertension: Yes Hx Peripheral Edema: Yes - PULMONARY Hx Asthma: Yes Hx Bronchitis: Yes Hx Chronic Obstructive Pulmonary Disease (COPD): Yes Hx Sleep Apnea: No - NEUROLOGICAL Hx Neurological Disorder: No - HEENT Hx HEENT Problems: No - RENAL Hx Chronic Kidney Disease: Yes - ENDOCRINE/METABOLIC Hx Diabetes Mellitus Type 2: Yes - HEMATOLOGICAL/ONCOLOGICAL Hx Anemia: Yes - INTEGUMENTARY Hx Dermatological Problems: Yes Hx Cellulitis: Yes (BILATERAL LEGS) - MUSCULOSKELETAL/RHEUMATOLOGICAL Hx Falls: No - GASTROINTESTINAL Hx Gastrointestinal Disorders: Yes Hx Gastroesophageal Reflux: Yes - GENITOURINARY/GYNECOLOGICAL Hx Genitourinary Disorders: No - PSYCHIATRIC Hx Substance Use: No - SURGICAL HISTORY Hx Surgeries: Yes (Left arm AV Fistula) Hx Vascular Surgery: Yes ([facility]) - ANESTHESIA Hx Anesthesia: Yes Hx Anesthesia Reactions: No Hx Malignant Hyperthermia: No Meds Allergies/Adverse Reactions: Allergies Allergy/AdvReac Type Severity Reaction Status Date / Time Penicillins Allergy Verified 06/30/18 10:02 tazobactam [From Zosyn] Allergy Verified 06/30/18 10:02 piperacillin AdvReac ITCHING, Verified 06/30/18 10:02 SHORTNESS OF BREATH PET DANDER Allergy Severe CONGESTION Uncoded 06/30/18 10:02 Physical Exam - Constitutional Appears: Well - Head Exam Head Exam: ATRAUMATIC, NORMAL INSPECTION, NORMOCEPHALIC - Eye Exam Eye Exam: EOMI, Normal appearance, PERRL Pupil Exam: NORMAL ACCOMODATION, PERRL - ENT Exam ENT Exam: Mucous Membranes Moist, Normal Exam - Neck Exam Neck exam: Positive for: Normal Inspection - Respiratory Exam Respiratory Exam: Decreased Breath Sounds - Cardiovascular Exam Cardiovascular Exam: REGULAR RHYTHM, +S1, +S2 - GI/Abdominal Exam GI & Abdominal Exam: Diminished Bowel Sounds, Soft - Rectal Exam Rectal Exam: Deferred Results - Vital Signs Recent Vital Signs: Last Vital Signs Temp 98.4 F 06/30/18 17:07 Pulse 95 H 06/30/18 18:11 Resp 18 06/30/18 18:11 BP 132/62 06/30/18 17:07 Pulse Ox 96 06/30/18 18:11 - Labs Result Diagrams: 06/30/18 10:59 06/30/18 10:59 Labs: Laboratory Results - last 24 hr 06/30/18 06/30/18 06/30/18 10:41 10:59 10:59 WBC 7.2 RBC 3.34 L Hgb 8.0 L Hct 25.2 L MCV 75.6 L MCH 24.1 L MCHC 31.9 L RDW 19.2 H Plt Count 288 MPV 8.4 Neut % (Auto) 63.8 Lymph % (Auto) 18.4 L [place] % (Auto) 13.1 H Eos % (Auto) 3.0 Baso % (Auto) 1.7 Neut # (Auto) 4.6 Lymph # (Auto) 1.3 [place] # (Auto) 0.9 H Eos # (Auto) 0.2 Baso # (Auto) 0.1 Puncture Site pCO2 pO2 HCO3 ABG pH ABG Total CO2 ABG O2 Saturation ABG Base Excess Shankar Test ABG Potassium Glucose Lactate Liter Flow Sodium 136 Potassium 4.0 Chloride 95 L Carbon Dioxide 28 Anion Gap 16 BUN 23 H Creatinine 4.5 H Est GFR ( Amer) 17 Est GFR (Non-Af Amer) 14 POC Glucose (mg/dL) 95 Random Glucose 100 Calcium 8.6 Total Bilirubin 0.4 AST 28 ALT 12 L D Alkaline Phosphatase 102 Troponin I < 0.0120 NT-Pro-B Natriuret Pep 01885 H Total Protein 7.8 Albumin 3.3 L Globulin 4.5 H Albumin/Globulin Ratio 0.7 L Arterial Blood Potassium 06/30/18 06/30/18 11:00 19:07 WBC RBC Hgb Hct MCV MCH MCHC RDW Plt Count MPV Neut % (Auto) Lymph % (Auto) [place] % (Auto) Eos % (Auto) Baso % (Auto) Neut # (Auto) Lymph # (Auto) [place] # (Auto) Eos # (Auto) Baso # (Auto) Puncture Site Lb pCO2 48 H pO2 112 H HCO3 27.5 ABG pH 7.39 ABG Total CO2 30.6 H ABG O2 Saturation 99.0 H ABG Base Excess 3.3 H Shankar Test Pos ABG Potassium 3.9 Glucose 93 Lactate 2.4 H Liter Flow 3.0 Sodium 133.0 Potassium Chloride 96.0 L Carbon Dioxide Anion Gap BUN Creatinine Est GFR ( Amer) Est GFR (Non-Af Amer) POC Glucose (mg/dL) 76 Random Glucose Calcium Total Bilirubin AST ALT Alkaline Phosphatase Troponin I NT-Pro-B Natriuret Pep Total Protein Albumin Globulin Albumin/Globulin Ratio Arterial Blood Potassium 3.9
[2018-07-01] MEDS: Meropenem 500 MG in Sodium Chloride 0.9% 100 ML IVPB SCH ×2 (01:25→11:36)
[2018-07-01] MEDS ORDERED: Amiodarone 150mg/3 ml vial IVP ONE (08:30)
[2018-07-01 09:37] LABS: BASO # 0.1 K/uL (0.0-0.2); BASO % 1.4 % (0.0-2.0); EOS % 0.2 % (0.0-4.0); LYMPH # 1.8 K/uL (1.0-4.3); LYMPH % 23.1 % (20.0-40.0); MEAN CELL VOLUME 76.9 fL (80.0-94.0); MEAN CORPUSCULAR HGB CONC 31.3 g/dL (33.0-37.0); MEAN PLATELET VOLUME 9.1 fL (7.2-11.7); MONO # 1.2 K/uL (0.0-0.8); MONO % 15.2 % (0.0-10.0); NEUT # 4.7 K/uL (1.8-7.0); NEUT % 60.1 % (50.0-75.0); NRBC % 0.4 % (0.0-2.0); RBC 3.34 Mil/uL (4.40-5.90); RED CELL DISTRIBUTION WIDTH 19.9 % (11.5-14.5); WHITE BLOOD COUNT 7.8 K/uL (4.8-10.8)
[2018-07-01 10:02] LABS: CK-MB 0.38 ng/mL (0.0-3.38)
[2018-07-01 10:07] LABS: TROPONIN I 0.038 ng/mL (0.00-0.120)
[2018-07-01] MEDS ORDERED: Sodium Chloride 0.9% 250 ML IV ONE (11:48)
--- NOTE | 2018-07-01 11:58 | CP.PCM.CON ---
History of Present Illness - History of Present Illness History of Present Illness: 52 y/o AA man with recent bacteremia, chronic LE cellulitis from lymphedems who presents with increased hypotension and CPs from [place]. This is a 52 year old AA male with a past medical history of morbid obesity, chronic lower extremity lymphedema, ESRD on HD, DM, HTN, COPD, who presented from dialysis center via EMS to ED with complaints of dizziness and chest pain. Patient states that he was in his prison today when he got into an argument with an aide, and subsequently felt pain in his chest radiating to the "left pectoral muscle, down the left arm and to the wrist." He reports that the pain went away, but his dizziness worsened. Pt states that he felt like his blood pressure was low so he had the staff check his vitals; he was noted be be hypoglycemic and was told to eat something. He later went to dialysis, where he continued to complain of feeling like his blood pressure was low. Pt reports that over a span of three hours he had, "about one and a quarter liters" removed until his dizziness and lightheadedness worsened and the dialysis staff noted hypotension. In the ED, pt's initial BP was noted to be 78/58 (MAP 64), with similar subsequent readings. ICU was consulted for hypotension and chest pain. Pt was seen and examined at bedside. Pt reports that his chest pain has been alleviated since leaving the prison. Pt endorses "labored breathing," and lightheadedness/dizziness when moving around. Pt denies visual changes, LOC. Had been on midodrine- off now, BP still very low in ICU requiring IV fluids. Review of Systems - Constitutional Constitutional: Fatigue, Weakness - EENT Eyes: absent: As Per HPI, Blind Spots, Blurred Vision, Change in Vision, Decreased Night Vision, Diplopia, Discharge, Dry Eye, Exophthalmos, Floaters, Irritation, Itchy Eyes, Loss of Peripheral Vision, Pain, Photophobia, Requires Corrective Lenses, Sees Flashes, Spots in Vision, Tunnel Vision, Other Visual Disturbances, Loss of Vision, Other Ears: absent: As Per HPI, Decreased Hearing, Ear Discharge, Ear Pain, Tinnitus, Abnormal Hearing, Disequilibrium, Dizziness, Other Nose/Mouth/Throat: absent: As Per HPI, Epistaxis, Nasal Congestion, Nasal Discharge, Nasal Obstruction, Nasal Trauma, Nose Pain, Post Nasal Drip, Sinus Pain, Sinus Pressure, Bleeding Gums, Change in Voice, Dental Pain, Dry Mouth, Dysphagia, Halitosis, Hoarsness, Lip Swelling, Mouth Lesions, Mouth Pain, Odynophagia, Sore Throat, Throat Swelling, Tongue Swelling, Facial Pain, Neck Pain, Neck Mass, Other - Cardiovascular Cardiovascular: Dyspnea on Exertion, Lightheadedness - Respiratory Respiratory: Dyspnea on Exertion - Gastrointestinal Gastrointestinal: Constipation, Early Satiety - Genitourinary Genitourinary: As Per HPI - Musculoskeletal Musculoskeletal: Muscle Cramps, Muscle Weakness, Myalgias - Neurological Neurological: Dizziness, Weakness Past Patient History - Infectious Disease Hx of Infectious Diseases: None - Past Medical History & Family History Past Medical History?: Yes Past Family History: Reviewed and not pertinent - Past Social History Smoking Status: Light Smoker < 10 Cigarettes Daily Chewing Tobacco Use: No Cigar Use: No Drugs: Prescription medications Home Situation {Lives}: Snf - CARDIAC Hx Hypertension: Yes Hx Peripheral Edema: Yes - PULMONARY Hx Asthma: Yes Hx Bronchitis: Yes Hx Chronic Obstructive Pulmonary Disease (COPD): Yes Hx Sleep Apnea: No - NEUROLOGICAL Hx Neurological Disorder: No - HEENT Hx HEENT Problems: No - RENAL Hx Chronic Kidney Disease: Yes - ENDOCRINE/METABOLIC Hx Diabetes Mellitus Type 2: Yes - HEMATOLOGICAL/ONCOLOGICAL Hx Anemia: Yes - INTEGUMENTARY Hx Dermatological Problems: Yes Hx Cellulitis: Yes (BILATERAL LEGS) - MUSCULOSKELETAL/RHEUMATOLOGICAL Hx Falls: No - GASTROINTESTINAL Hx Gastrointestinal Disorders: Yes Hx Gastroesophageal Reflux: Yes - GENITOURINARY/GYNECOLOGICAL Hx Genitourinary Disorders: No - PSYCHIATRIC Hx Substance Use: No - SURGICAL HISTORY Hx Surgeries: Yes (Left arm AV Fistula) Hx Vascular Surgery: Yes ([facility]) - ANESTHESIA Hx Anesthesia: Yes Hx Anesthesia Reactions: No Hx Malignant Hyperthermia: No Meds Allergies/Adverse Reactions: Allergies Allergy/AdvReac Type Severity Reaction Status Date / Time Penicillins Allergy Verified 06/30/18 10:02 tazobactam [From Zosyn] Allergy Verified 06/30/18 10:02 piperacillin AdvReac ITCHING, Verified 06/30/18 10:02 SHORTNESS OF BREATH PET DANDER Allergy Severe CONGESTION Uncoded 06/30/18 10:02 - Medications Medications: Current Medications Heparin Sodium (Porcine) (Heparin) 5,000 units SC Q12 JOSSIE Last Admin: 07/01/18 09:48 Dose: 5,000 units Vancomycin HCl 1 gm/ Sodium (Chloride) 200 mls @ 133.333 mls/hr IVPB TTS JOSSIE PRN Reason: Protocol Meropenem 500 mg/ Sodium (Chloride) 100 mls @ 100 mls/hr IVPB Q12H JOSSIE PRN Reason: Protocol Last Admin: 07/01/18 11:36 Dose: 100 mls/hr Sodium Chloride (Sodium Chloride 0.9%) 250 mls @ 125 mls/hr IV .Q2H ONE Stop: 07/01/18 13:47 Midodrine (Proamatine) 2.5 mg PO TID JOSSIE Tramadol HCl (Ultram) 50 mg PO Q6H PRN PRN Reason: Pain, severe (8-10) Last Admin: 07/01/18 04:36 Dose: 50 mg Physical Exam - Constitutional Appears: Chronically Ill - Head Exam Head Exam: ATRAUMATIC, NORMAL INSPECTION - Eye Exam Eye Exam: EOMI, Normal appearance - Neck Exam Neck exam: Positive for: Normal Inspection. Negative for: Tenderness - Respiratory Exam Respiratory Exam: Clear to Auscultation Bilateral, NORMAL BREATHING PATTERN - Cardiovascular Exam Cardiovascular Exam: REGULAR RHYTHM, +S1 - GI/Abdominal Exam GI & Abdominal Exam: Organomegaly, Soft. absent: Tenderness - Extremities Exam Extremities exam: Positive for: pedal edema, tenderness - Neurological Exam Neurological exam: Alert, CN II-XII Intact - Skin Skin Exam: Dry, Warm Results - Vital Signs Recent Vital Signs: Last Vital Signs Temp 98.2 F 07/01/18 04:00 Pulse 97 H 07/01/18 09:48 Resp 22 07/01/18 09:48 BP 86/45 L 07/01/18 09:48 Pulse Ox 98 07/01/18 09:59 - Labs Result Diagrams: 07/01/18 09:32 06/30/18 10:59 Labs: Laboratory Results - last 24 hr 06/30/18 06/30/18 07/01/18 19:07 21:15 07:11 WBC RBC Hgb Hct MCV MCH MCHC RDW Plt Count MPV Neut % (Auto) Lymph % (Auto) [place] % (Auto) Eos % (Auto) Baso % (Auto) Neut # (Auto) Lymph # (Auto) [place] # (Auto) Eos # (Auto) Baso # (Auto) POC Glucose (mg/dL) 76 93 59 L Total Creatine Kinase CK-MB (Mass) Troponin I 07/01/18 07/01/18 07/01/18 07:14 07:49 07:51 WBC RBC Hgb Hct MCV MCH MCHC RDW Plt Count MPV Neut % (Auto) Lymph % (Auto) [place] % (Auto) Eos % (Auto) Baso % (Auto) Neut # (Auto) Lymph # (Auto) [place] # (Auto) Eos # (Auto) Baso # (Auto) POC Glucose (mg/dL) 66 60 L 54 L Total Creatine Kinase CK-MB (Mass) Troponin I 07/01/18 07/01/18 07/01/18 08:05 08:06 09:32 WBC 7.8 RBC 3.34 L Hgb 8.0 L Hct 25.6 L MCV 76.9 L MCH 24.0 L MCHC 31.3 L RDW 19.9 H Plt Count 328 MPV 9.1 Neut % (Auto) 60.1 Lymph % (Auto) 23.1 [place] % (Auto) 15.2 H Eos % (Auto) 0.2 Baso % (Auto) 1.4 Neut # (Auto) 4.7 Lymph # (Auto) 1.8 [place] # (Auto) 1.2 H Eos # (Auto) 0.0 Baso # (Auto) 0.1 POC Glucose (mg/dL) 68 72 Total Creatine Kinase CK-MB (Mass) Troponin I 07/01/18 07/01/18 07/01/18 09:32 11:41 11:43 WBC RBC Hgb Hct MCV MCH MCHC RDW Plt Count MPV Neut % (Auto) Lymph % (Auto) [place] % (Auto) Eos % (Auto) Baso % (Auto) Neut # (Auto) Lymph # (Auto) [place] # (Auto) Eos # (Auto) Baso # (Auto) POC Glucose (mg/dL) 69 69 Total Creatine Kinase 45 L CK-MB (Mass) 0.38 Troponin I 0.0380 Assessment & Plan (1) Hypotension Status: Acute (2) Type 2 diabetes mellitus with diabetic nephropathy Status: Acute (3) ESRD on hemodialysis Status: Chronic (4) Lymphedema of lower extremity Status: Chronic - Assessment and Plan (Free Text) Assessment: Correct hypotension Trial IV fluids- saline around 300ml Dialysis TTS Resume midodrine Pressors IV if hypotension can not be corrected If culture positive or febrile would change permcath as patient with recent bacteremia
[2018-07-01] MEDS ORDERED: Dextrose 50% SYRINGE Inj (50 ml) IV STA (12:35)
[2018-07-01] MEDS ORDERED: Dextrose 50% SYRINGE Inj (50 ml) ONE (12:40)
[2018-07-01 13:43] LABS: ALB/GLOB RATIO 0.8 (1.0-2.1); ALBUMIN 3.3 g/dL (3.5-5.0); CALCIUM 8.8 mg/dl (8.6-10.4)
[2018-07-01 13:52] LABS: ABG ALLEN TEST POS; ARTERIAL BLOOD GAS HCO3 21.2 mmol/L (21-28); ARTERIAL BLOOD GAS O2 SAT 99.6 % (95-98); ARTERIAL BLOOD GAS PCO2 38 mm/Hg (35-45); ARTERIAL BLOOD GAS PH 7.34 (7.35-7.45); ARTERIAL BLOOD GAS PO2 139 mm/Hg (80-100); ARTERIAL BLOOD GAS TCO2 21.7 mmol/L (22-28)
[2018-07-01] MEDS: Albumin Human 25% (12.5 gm/50 ml) IV SCH ×5 (15:20→22:27)
[2018-07-01 16:33] LABS: TROPONIN I 0.04 ng/mL (0.00-0.120)
--- NOTE | 2018-07-01 16:33 | CP.CCUPN ---
<Jose Angel Nunes - Last Filed: 07/01/18 17:07> CCU Objective - Vital Signs / Intake & Output Vital Signs (Last 4 hours): Vital Signs Temp Pulse Resp BP Pulse Ox 07/01/18 16:00 97.6 F 183 H 22 100 07/01/18 15:54 97 H 30 H 120/69 07/01/18 15:44 93 H 18 92/52 L 07/01/18 15:04 92 H 19 86/50 L 07/01/18 15:00 86 27 H 93 L 07/01/18 14:47 76 22 81/43 L 98 07/01/18 14:26 90 26 H 83/46 L 99 07/01/18 14:25 91 H 28 H 83/46 L 99 07/01/18 14:00 97 H 23 100 07/01/18 13:45 90 27 H 89/62 L 99 07/01/18 13:21 71 28 H 94/50 L 100 Intake and Output (Last 8hrs): Intake & Output 07/01/18 07/01/18 07/01/18 06:59 14:59 22:59 Intake Total 920 550 Balance 920 550 Intake: Intake, IV Amount 200 250 Right Arm Midline 200 250 Oral 720 300 Other: # Bowel Movements 1 - Medications Active Medications: Active Medications Generic Name Dose Route Start Last Admin Trade Name Freq PRN Reason Stop Dose Admin Albumin Human 12.5 gm 07/01/18 15:00 07/01/18 16:58 Albumin Human 25% (12.5 Gm/50 Ml) IV 07/02/18 01:01 12.5 gm Q2H JOSSIE Administration Heparin Sodium (Porcine) 5,000 units 07/01/18 10:00 07/01/18 09:48 Heparin SC 5,000 units Q12 JOSSIE Administration Vancomycin HCl 1 gm/ Sodium 200 mls @ 133.333 mls/hr 07/02/18 10:00 Chloride IVPB TTS JOSSIE Protocol Meropenem 500 mg/ Sodium 100 mls @ 100 mls/hr 07/01/18 00:00 07/01/18 11:36 Chloride IVPB 100 mls/hr Q12H JOSSIE Administration Protocol Diltiazem HCl 125 mg/ Dextrose 125 mls @ 5 mls/hr 07/01/18 13:15 08/03/18 16: 22 IV 5 mg/hr .Q24H JOSSIE 5 mls/hr Protocol Administration 5 MG/HR Midodrine 2.5 mg 07/01/18 12:15 07/01/18 17:00 Proamatine PO 2.5 mg TID JOSSIE Administration Tramadol HCl 50 mg 06/30/18 22:26 07/01/18 15:52 Ultram PO 50 mg Q6H PRN Administration Pain, severe (8-10) - Patient Studies Lab Studies: Microbiology Studies 06/30/18 11:51 Blood Culture - Preliminary Blood NO GROWTH AFTER 24 HOURS 06/30/18 11:51 Blood Culture - Preliminary Blood NO GROWTH AFTER 24 HOURS Lab Studies 07/01/18 07/01/18 07/01/18 Range/Units 16:09 15:42 13:41 WBC (4.8-10.8) K/uL RBC (4.40-5.90) Mil/uL Hgb (12.0-18.0) g/dL Hct (35.0-51.0) % MCV (80.0-94.0) fL MCH (27.0-31.0) pg MCHC (33.0-37.0) g/dL RDW (11.5-14.5) % Plt Count (130-400) K/uL MPV (7.2-11.7) fL Neut % (Auto) (50.0-75.0) % Lymph % (Auto) (20.0-40.0) % [place] % (Auto) (0.0-10.0) % Eos % (Auto) (0.0-4.0) % Baso % (Auto) (0.0-2.0) % Neut # (Auto) (1.8-7.0) K/uL Lymph # (Auto) (1.0-4.3) K/uL [place] # (Auto) (0.0-0.8) K/uL Eos # (Auto) (0.0-0.7) K/uL Baso # (Auto) (0.0-0.2) K/uL Puncture Site Rra pCO2 38 (35-45) mm/Hg pO2 139 H (80-100) mm/Hg HCO3 21.2 (21-28) mmol/L ABG pH 7.34 L (7.35-7.45) ABG Total CO2 21.7 L (22-28) mmol/L ABG O2 Saturation 99.6 H (95-98) % ABG Base Excess -4.8 L (-2.0-3.0) mmol/L Shankar Test Pos ABG Potassium 3.7 (3.6-5.2) mmol/L Glucose 167 H (75-110) mg/dl Lactate 3.6 H (0.7-2.1) mmol/L Liter Flow 4.0 Sodium 140.0 (132-148) mmol/L Potassium (3.6-5.2) mmol/L Chloride 114.0 H (98-107) mmol/L Carbon Dioxide (22-30) mmol/L Anion Gap (10-20) BUN (9-20) mg/dL Creatinine (0.8-1.5) mg/dL Est GFR ( Amer) Est GFR (Non-Af Amer) POC Glucose (mg/dL) 71 (65-110) mg/dL Random Glucose (75-110) mg/dL Calcium (8.6-10.4) mg/dl Phosphorus (2.5-4.5) mg/dL Magnesium (1.6-2.3) mg/dL Total Bilirubin (0.2-1.3) mg/dL AST (17-59) U/L ALT (21-72) U/L Alkaline Phosphatase (38-126) U/L Total Creatine Kinase (55-170) U/L CK-MB (Mass) (0.0-3.38) ng/mL Troponin I 0.0400 (0.00-0.120) ng/mL Total Protein (6.3-8.3) g/dL Albumin (3.5-5.0) g/dL Globulin (2.2-3.9) gm/dL Albumin/Globulin Ratio (1.0-2.1) Arterial Blood Potassium 3.7 (3.6-5.2) mmol/L 07/01/18 07/01/18 07/01/18 Range/Units 13:18 13:12 12:30 WBC (4.8-10.8) K/uL RBC (4.40-5.90) Mil/uL Hgb (12.0-18.0) g/dL Hct (35.0-51.0) % MCV (80.0-94.0) fL MCH (27.0-31.0) pg MCHC (33.0-37.0) g/dL RDW (11.5-14.5) % Plt Count (130-400) K/uL MPV (7.2-11.7) fL Neut % (Auto) (50.0-75.0) % Lymph % (Auto) (20.0-40.0) % [place] % (Auto) (0.0-10.0) % Eos % (Auto) (0.0-4.0) % Baso % (Auto) (0.0-2.0) % Neut # (Auto) (1.8-7.0) K/uL Lymph # (Auto) (1.0-4.3) K/uL [place] # (Auto) (0.0-0.8) K/uL Eos # (Auto) (0.0-0.7) K/uL Baso # (Auto) (0.0-0.2) K/uL Puncture Site pCO2 (35-45) mm/Hg pO2 (80-100) mm/Hg HCO3 (21-28) mmol/L ABG pH (7.35-7.45) ABG Total CO2 (22-28) mmol/L ABG O2 Saturation (95-98) % ABG Base Excess (-2.0-3.0) mmol/L Shankar Test ABG Potassium (3.6-5.2) mmol/L Glucose (75-110) mg/dl Lactate (0.7-2.1) mmol/L Liter Flow Sodium 134 (132-148) mmol/L Potassium 5.3 H (3.6-5.2) mmol/L Chloride 93 L (98-107) mmol/L Carbon Dioxide 20 L (22-30) mmol/L Anion Gap 26 H (10-20) BUN 31 H (9-20) mg/dL Creatinine 6.2 H (0.8-1.5) mg/dL Est GFR ( Amer) 12 Est GFR (Non-Af Amer) 10 POC Glucose (mg/dL) 139 H 66 (65-110) mg/dL Random Glucose 122 H (75-110) mg/dL Calcium 8.8 (8.6-10.4) mg/dl Phosphorus 7.2 H (2.5-4.5) mg/dL Magnesium 1.9 (1.6-2.3) mg/dL Total Bilirubin 0.7 (0.2-1.3) mg/dL AST 90 H D (17-59) U/L ALT 25 (21-72) U/L Alkaline Phosphatase 184 H D (38-126) U/L Total Creatine Kinase (55-170) U/L CK-MB (Mass) (0.0-3.38) ng/mL Troponin I (0.00-0.120) ng/mL Total Protein 7.5 (6.3-8.3) g/dL Albumin 3.3 L (3.5-5.0) g/dL Globulin 4.2 H (2.2-3.9) gm/dL Albumin/Globulin Ratio 0.8 L (1.0-2.1) Arterial Blood Potassium (3.6-5.2) mmol/L 07/01/18 07/01/18 07/01/18 Range/Units 12:29 11:43 11:41 WBC (4.8-10.8) K/uL RBC (4.40-5.90) Mil/uL Hgb (12.0-18.0) g/dL Hct (35.0-51.0) % MCV (80.0-94.0) fL MCH (27.0-31.0) pg MCHC (33.0-37.0) g/dL RDW (11.5-14.5) % Plt Count (130-400) K/uL MPV (7.2-11.7) fL Neut % (Auto) (50.0-75.0) % Lymph % (Auto) (20.0-40.0) % [place] % (Auto) (0.0-10.0) % Eos % (Auto) (0.0-4.0) % Baso % (Auto) (0.0-2.0) % Neut # (Auto) (1.8-7.0) K/uL Lymph # (Auto) (1.0-4.3) K/uL [place] # (Auto) (0.0-0.8) K/uL Eos # (Auto) (0.0-0.7) K/uL Baso # (Auto) (0.0-0.2) K/uL Puncture Site pCO2 (35-45) mm/Hg pO2 (80-100) mm/Hg HCO3 (21-28) mmol/L ABG pH (7.35-7.45) ABG Total CO2 (22-28) mmol/L ABG O2 Saturation (95-98) % ABG Base Excess (-2.0-3.0) mmol/L Shankar Test ABG Potassium (3.6-5.2) mmol/L Glucose (75-110) mg/dl Lactate (0.7-2.1) mmol/L Liter Flow Sodium (132-148) mmol/L Potassium (3.6-5.2) mmol/L Chloride (98-107) mmol/L Carbon Dioxide (22-30) mmol/L Anion Gap (10-20) BUN (9-20) mg/dL Creatinine (0.8-1.5) mg/dL Est GFR ( Amer) Est GFR (Non-Af Amer) POC Glucose (mg/dL) 61 L 69 69 (65-110) mg/dL Random Glucose (75-110) mg/dL Calcium (8.6-10.4) mg/dl Phosphorus (2.5-4.5) mg/dL Magnesium (1.6-2.3) mg/dL Total Bilirubin (0.2-1.3) mg/dL AST (17-59) U/L ALT (21-72) U/L Alkaline Phosphatase (38-126) U/L Total Creatine Kinase (55-170) U/L CK-MB (Mass) (0.0-3.38) ng/mL Troponin I (0.00-0.120) ng/mL Total Protein (6.3-8.3) g/dL Albumin (3.5-5.0) g/dL Globulin (2.2-3.9) gm/dL Albumin/Globulin Ratio (1.0-2.1) Arterial Blood Potassium (3.6-5.2) mmol/L 07/01/1818 07/01/18 Range/Units 09:32 09:32 08:06 WBC 7.8 (4.8-10.8) K/uL RBC 3.34 L (4.40-5.90) Mil/uL Hgb 8.0 L (12.0-18.0) g/dL Hct 25.6 L (35.0-51.0) % MCV 76.9 L (80.0-94.0) fL MCH 24.0 L (27.0-31.0) pg MCHC 31.3 L (33.0-37.0) g/dL RDW 19.9 H (11.5-14.5) % Plt Count 328 (130-400) K/uL MPV 9.1 (7.2-11.7) fL Neut % (Auto) 60.1 (50.0-75.0) % Lymph % (Auto) 23.1 (20.0-40.0) % [place] % (Auto) 15.2 H (0.0-10.0) % Eos % (Auto) 0.2 (0.0-4.0) % Baso % (Auto) 1.4 (0.0-2.0) % Neut # (Auto) 4.7 (1.8-7.0) K/uL Lymph # (Auto) 1.8 (1.0-4.3) K/uL [place] # (Auto) 1.2 H (0.0-0.8) K/uL Eos # (Auto) 0.0 (0.0-0.7) K/uL Baso # (Auto) 0.1 (0.0-0.2) K/uL Puncture Site pCO2 (35-45) mm/Hg pO2 (80-100) mm/Hg HCO3 (21-28) mmol/L ABG pH (7.35-7.45) ABG Total CO2 (22-28) mmol/L ABG O2 Saturation (95-98) % ABG Base Excess (-2.0-3.0) mmol/L Shankar Test ABG Potassium (3.6-5.2) mmol/L Glucose (75-110) mg/dl Lactate (0.7-2.1) mmol/L Liter Flow Sodium (132-148) mmol/L Potassium (3.6-5.2) mmol/L Chloride (98-107) mmol/L Carbon Dioxide (22-30) mmol/L Anion Gap (10-20) BUN (9-20) mg/dL Creatinine (0.8-1.5) mg/dL Est GFR ( Amer) Est GFR (Non-Af Amer) POC Glucose (mg/dL) 72 (65-110) mg/dL Random Glucose (75-110) mg/dL Calcium (8.6-10.4) mg/dl Phosphorus (2.5-4.5) mg/dL Magnesium (1.6-2.3) mg/dL Total Bilirubin (0.2-1.3) mg/dL AST (17-59) U/L ALT (21-72) U/L Alkaline Phosphatase (38-126) U/L Total Creatine Kinase 45 L (55-170) U/L CK-MB (Mass) 0.38 (0.0-3.38) ng/mL Troponin I 0.0380 (0.00-0.120) ng/mL Total Protein (6.3-8.3) g/dL Albumin (3.5-5.0) g/dL Globulin (2.2-3.9) gm/dL Albumin/Globulin Ratio (1.0-2.1) Arterial Blood Potassium (3.6-5.2) mmol/L 07/01/18 07/01/18 07/01/18 Range/Units 08:05 07:51 07:49 WBC (4.8-10.8) K/uL RBC (4.40-5.90) Mil/uL Hgb (12.0-18.0) g/dL Hct (35.0-51.0) % MCV (80.0-94.0) fL MCH (27.0-31.0) pg MCHC (33.0-37.0) g/dL RDW (11.5-14.5) % Plt Count (130-400) K/uL MPV (7.2-11.7) fL Neut % (Auto) (50.0-75.0) % Lymph % (Auto) (20.0-40.0) % [place] % (Auto) (0.0-10.0) % Eos % (Auto) (0.0-4.0) % Baso % (Auto) (0.0-2.0) % Neut # (Auto) (1.8-7.0) K/uL Lymph # (Auto) (1.0-4.3) K/uL [place] # (Auto) (0.0-0.8) K/uL Eos # (Auto) (0.0-0.7) K/uL Baso # (Auto) (0.0-0.2) K/uL Puncture Site pCO2 (35-45) mm/Hg pO2 (80-100) mm/Hg HCO3 (21-28) mmol/L ABG pH (7.35-7.45) ABG Total CO2 (22-28) mmol/L ABG O2 Saturation (95-98) % ABG Base Excess (-2.0-3.0) mmol/L Shankar Test ABG Potassium (3.6-5.2) mmol/L Glucose (75-110) mg/dl Lactate (0.7-2.1) mmol/L Liter Flow Sodium (132-148) mmol/L Potassium (3.6-5.2) mmol/L Chloride (98-107) mmol/L Carbon Dioxide (22-30) mmol/L Anion Gap (10-20) BUN (9-20) mg/dL Creatinine (0.8-1.5) mg/dL Est GFR ( Amer) Est GFR (Non-Af Amer) POC Glucose (mg/dL) 68 54 L 60 L (65-110) mg/dL Random Glucose (75-110) mg/dL Calcium (8.6-10.4) mg/dl Phosphorus (2.5-4.5) mg/dL Magnesium (1.6-2.3) mg/dL Total Bilirubin (0.2-1.3) mg/dL AST (17-59) U/L ALT (21-72) U/L Alkaline Phosphatase (38-126) U/L Total Creatine Kinase (55-170) U/L CK-MB (Mass) (0.0-3.38) ng/mL Troponin I (0.00-0.120) ng/mL Total Protein (6.3-8.3) g/dL Albumin (3.5-5.0) g/dL Globulin (2.2-3.9) gm/dL Albumin/Globulin Ratio (1.0-2.1) Arterial Blood Potassium (3.6-5.2) mmol/L 07/01/18 07/01/18 06/30/18 Range/Units 07:14 07:11 21:15 WBC (4.8-10.8) K/uL RBC (4.40-5.90) Mil/uL Hgb (12.0-18.0) g/dL Hct (35.0-51.0) % MCV (80.0-94.0) fL MCH (27.0-31.0) pg MCHC (33.0-37.0) g/dL RDW (11.5-14.5) % Plt Count (130-400) K/uL MPV (7.2-11.7) fL Neut % (Auto) (50.0-75.0) % Lymph % (Auto) (20.0-40.0) % [place] % (Auto) (0.0-10.0) % Eos % (Auto) (0.0-4.0) % Baso % (Auto) (0.0-2.0) % Neut # (Auto) (1.8-7.0) K/uL Lymph # (Auto) (1.0-4.3) K/uL [place] # (Auto) (0.0-0.8) K/uL Eos # (Auto) (0.0-0.7) K/uL Baso # (Auto) (0.0-0.2) K/uL Puncture Site pCO2 (35-45) mm/Hg pO2 (80-100) mm/Hg HCO3 (21-28) mmol/L ABG pH (7.35-7.45) ABG Total CO2 (22-28) mmol/L ABG O2 Saturation (95-98) % ABG Base Excess (-2.0-3.0) mmol/L Shankar Test ABG Potassium (3.6-5.2) mmol/L Glucose (75-110) mg/dl Lactate (0.7-2.1) mmol/L Liter Flow Sodium (132-148) mmol/L Potassium (3.6-5.2) mmol/L Chloride (98-107) mmol/L Carbon Dioxide (22-30) mmol/L Anion Gap (10-20) BUN (9-20) mg/dL Creatinine (0.8-1.5) mg/dL Est GFR ( Amer) Est GFR (Non-Af Amer) POC Glucose (mg/dL) 66 59 L 93 (65-110) mg/dL Random Glucose (75-110) mg/dL Calcium (8.6-10.4) mg/dl Phosphorus (2.5-4.5) mg/dL Magnesium (1.6-2.3) mg/dL Total Bilirubin (0.2-1.3) mg/dL AST (17-59) U/L ALT (21-72) U/L Alkaline Phosphatase (38-126) U/L Total Creatine Kinase (55-170) U/L CK-MB (Mass) (0.0-3.38) ng/mL Troponin I (0.00-0.120) ng/mL Total Protein (6.3-8.3) g/dL Albumin (3.5-5.0) g/dL Globulin (2.2-3.9) gm/dL Albumin/Globulin Ratio (1.0-2.1) Arterial Blood Potassium (3.6-5.2) mmol/L 06/30/18 Range/Units 19:07 WBC (4.8-10.8) K/uL RBC (4.40-5.90) Mil/uL Hgb (12.0-18.0) g/dL Hct (35.0-51.0) % MCV (80.0-94.0) fL MCH (27.0-31.0) pg MCHC (33.0-37.0) g/dL RDW (11.5-14.5) % Plt Count (130-400) K/uL MPV (7.2-11.7) fL Neut % (Auto) (50.0-75.0) % Lymph % (Auto) (20.0-40.0) % [place] % (Auto) (0.0-10.0) % Eos % (Auto) (0.0-4.0) % Baso % (Auto) (0.0-2.0) % Neut # (Auto) (1.8-7.0) K/uL Lymph # (Auto) (1.0-4.3) K/uL [place] # (Auto) (0.0-0.8) K/uL Eos # (Auto) (0.0-0.7) K/uL Baso # (Auto) (0.0-0.2) K/uL Puncture Site pCO2 (35-45) mm/Hg pO2 (80-100) mm/Hg HCO3 (21-28) mmol/L ABG pH (7.35-7.45) ABG Total CO2 (22-28) mmol/L ABG O2 Saturation (95-98) % ABG Base Excess (-2.0-3.0) mmol/L Shankar Test ABG Potassium (3.6-5.2) mmol/L Glucose (75-110) mg/dl Lactate (0.7-2.1) mmol/L Liter Flow Sodium (132-148) mmol/L Potassium (3.6-5.2) mmol/L Chloride (98-107) mmol/L Carbon Dioxide (22-30) mmol/L Anion Gap (10-20) BUN (9-20) mg/dL Creatinine (0.8-1.5) mg/dL Est GFR ( Amer) Est GFR (Non-Af Amer) POC Glucose (mg/dL) 76 (65-110) mg/dL Random Glucose (75-110) mg/dL Calcium (8.6-10.4) mg/dl Phosphorus (2.5-4.5) mg/dL Magnesium (1.6-2.3) mg/dL Total Bilirubin (0.2-1.3) mg/dL AST (17-59) U/L ALT (21-72) U/L Alkaline Phosphatase (38-126) U/L Total Creatine Kinase (55-170) U/L CK-MB (Mass) (0.0-3.38) ng/mL Troponin I (0.00-0.120) ng/mL Total Protein (6.3-8.3) g/dL Albumin (3.5-5.0) g/dL Globulin (2.2-3.9) gm/dL Albumin/Globulin Ratio (1.0-2.1) Arterial Blood Potassium (3.6-5.2) mmol/L Laboratory Results - last 24 hr 06/30/18 06/30/18 07/01/18 19:07 21:15 07:11 WBC RBC Hgb Hct MCV MCH MCHC RDW Plt Count MPV Neut % (Auto) Lymph % (Auto) [place] % (Auto) Eos % (Auto) Baso % (Auto) Neut # (Auto) Lymph # (Auto) [place] # (Auto) Eos # (Auto) Baso # (Auto) Puncture Site pCO2 pO2 HCO3 ABG pH ABG Total CO2 ABG O2 Saturation ABG Base Excess Shankar Test ABG Potassium Glucose Lactate Liter Flow Sodium Potassium Chloride Carbon Dioxide Anion Gap BUN Creatinine Est GFR ( Amer) Est GFR (Non-Af Amer) POC Glucose (mg/dL) 76 93 59 L Random Glucose Calcium Phosphorus Magnesium Total Bilirubin AST ALT Alkaline Phosphatase Total Creatine Kinase CK-MB (Mass) Troponin I Total Protein Albumin Globulin Albumin/Globulin Ratio Arterial Blood Potassium 07/01/18 07/01/18 07/01/18 07:14 07:49 07:51 WBC RBC Hgb Hct MCV MCH MCHC RDW Plt Count MPV Neut % (Auto) Lymph % (Auto) [place] % (Auto) Eos % (Auto) Baso % (Auto) Neut # (Auto) Lymph # (Auto) [place] # (Auto) Eos # (Auto) Baso # (Auto) Puncture Site pCO2 pO2 HCO3 ABG pH ABG Total CO2 ABG O2 Saturation ABG Base Excess Shankar Test ABG Potassium Glucose Lactate Liter Flow Sodium Potassium Chloride Carbon Dioxide Anion Gap BUN Creatinine Est GFR ( Amer) Est GFR (Non-Af Amer) POC Glucose (mg/dL) 66 60 L 54 L Random Glucose Calcium Phosphorus Magnesium Total Bilirubin AST ALT Alkaline Phosphatase Total Creatine Kinase CK-MB (Mass) Troponin I Total Protein Albumin Globulin Albumin/Globulin Ratio Arterial Blood Potassium 07/01/18 07/01/18 07/01/18 08:05 08:06 09:32 WBC 7.8 RBC 3.34 L Hgb 8.0 L Hct 25.6 L MCV 76.9 L MCH 24.0 L MCHC 31.3 L RDW 19.9 H Plt Count 328 MPV 9.1 Neut % (Auto) 60.1 Lymph % (Auto) 23.1 [place] % (Auto) 15.2 H Eos % (Auto) 0.2 Baso % (Auto) 1.4 Neut # (Auto) 4.7 Lymph # (Auto) 1.8 [place] # (Auto) 1.2 H Eos # (Auto) 0.0 Baso # (Auto) 0.1 Puncture Site pCO2 pO2 HCO3 ABG pH ABG Total CO2 ABG O2 Saturation ABG Base Excess Shankar Test ABG Potassium Glucose Lactate Liter Flow Sodium Potassium Chloride Carbon Dioxide Anion Gap BUN Creatinine Est GFR ( Amer) Est GFR (Non-Af Amer) POC Glucose (mg/dL) 68 72 Random Glucose Calcium Phosphorus Magnesium Total Bilirubin AST ALT Alkaline Phosphatase Total Creatine Kinase CK-MB (Mass) Troponin I Total Protein Albumin Globulin Albumin/Globulin Ratio Arterial Blood Potassium 07/01/18 07/01/18 07/01/18 09:32 11:41 11:43 WBC RBC Hgb Hct MCV MCH MCHC RDW Plt Count MPV Neut % (Auto) Lymph % (Auto) [place] % (Auto) Eos % (Auto) Baso % (Auto) Neut # (Auto) Lymph # (Auto) [place] # (Auto) Eos # (Auto) Baso # (Auto) Puncture Site pCO2 pO2 HCO3 ABG pH ABG Total CO2 ABG O2 Saturation ABG Base Excess Shankar Test ABG Potassium Glucose Lactate Liter Flow Sodium Potassium Chloride Carbon Dioxide Anion Gap BUN Creatinine Est GFR ( Amer) Est GFR (Non-Af Amer) POC Glucose (mg/dL) 69 69 Random Glucose Calcium Phosphorus Magnesium Total Bilirubin AST ALT Alkaline Phosphatase Total Creatine Kinase 45 L CK-MB (Mass) 0.38 Troponin I 0.0380 Total Protein Albumin Globulin Albumin/Globulin Ratio Arterial Blood Potassium 07/01/18 07/01/18 07/01/18 12:29 12:30 13:12 WBC RBC Hgb Hct MCV MCH MCHC RDW Plt Count MPV Neut % (Auto) Lymph % (Auto) [place] % (Auto) Eos % (Auto) Baso % (Auto) Neut # (Auto) Lymph # (Auto) [place] # (Auto) Eos # (Auto) Baso # (Auto) Puncture Site pCO2 pO2 HCO3 ABG pH ABG Total CO2 ABG O2 Saturation ABG Base Excess Shankar Test ABG Potassium Glucose Lactate Liter Flow Sodium Potassium Chloride Carbon Dioxide Anion Gap BUN Creatinine Est GFR ( Amer) Est GFR (Non-Af Amer) POC Glucose (mg/dL) 61 L 66 139 H Random Glucose Calcium Phosphorus Magnesium Total Bilirubin AST ALT Alkaline Phosphatase Total Creatine Kinase CK-MB (Mass) Troponin I Total Protein Albumin Globulin Albumin/Globulin Ratio Arterial Blood Potassium 07/01/18 07/01/1818 13:18 13:41 15:42 WBC RBC Hgb Hct MCV MCH MCHC RDW Plt Count MPV Neut % (Auto) Lymph % (Auto) [place] % (Auto) Eos % (Auto) Baso % (Auto) Neut # (Auto) Lymph # (Auto) [place] # (Auto) Eos # (Auto) Baso # (Auto) Puncture Site Rra pCO2 38 pO2 139 H HCO3 21.2 ABG pH 7.34 L ABG Total CO2 21.7 L ABG O2 Saturation 99.6 H ABG Base Excess -4.8 L Shankar Test Pos ABG Potassium 3.7 Glucose 167 H Lactate 3.6 H Liter Flow 4.0 Sodium 134 140.0 Potassium 5.3 H Chloride 93 L 114.0 H Carbon Dioxide 20 L Anion Gap 26 H BUN 31 H Creatinine 6.2 H Est GFR ( Amer) 12 Est GFR (Non-Af Amer) 10 POC Glucose (mg/dL) Random Glucose 122 H Calcium 8.8 Phosphorus 7.2 H Magnesium 1.9 Total Bilirubin 0.7 AST 90 H D ALT 25 Alkaline Phosphatase 184 H D Total Creatine Kinase CK-MB (Mass) Troponin I 0.0400 Total Protein 7.5 Albumin 3.3 L Globulin 4.2 H Albumin/Globulin Ratio 0.8 L Arterial Blood Potassium 3.7 07/01/18 16:09 WBC RBC Hgb Hct MCV MCH MCHC RDW Plt Count MPV Neut % (Auto) Lymph % (Auto) [place] % (Auto) Eos % (Auto) Baso % (Auto) Neut # (Auto) Lymph # (Auto) [place] # (Auto) Eos # (Auto) Baso # (Auto) Puncture Site pCO2 pO2 HCO3 ABG pH ABG Total CO2 ABG O2 Saturation ABG Base Excess Shankar Test ABG Potassium Glucose Lactate Liter Flow Sodium Potassium Chloride Carbon Dioxide Anion Gap BUN Creatinine Est GFR ( Amer) Est GFR (Non-Af Amer) POC Glucose (mg/dL) 71 Random Glucose Calcium Phosphorus Magnesium Total Bilirubin AST ALT Alkaline Phosphatase Total Creatine Kinase CK-MB (Mass) Troponin I Total Protein Albumin Globulin Albumin/Globulin Ratio Arterial Blood Potassium EKG/Cardiology Studies: Cardiology / EKG Studies 07/01/18 07:56 EKG [ELECTROCARDIOGRAM] Stat Comment: Mode Of Transportation: Reason For Exam: quetsionable afib Critical Care Progress Note - Nutrition Nutrition: Nutrition Category Date Time Status Renal Diet [DIET] Diets 07/01/18 Dinner Active Attending/Attestation - Attestation I have personally seen and examined this patient.: Yes I have fully participated in the care of the patient.: Yes I have reviewed all pertinent clinical information: Yes Notes (Text): 07/01/18 17:07 I have seen and examined the patient. Medical records, lab studies, and imaging were reviewed by me and a management plan was formulated on multidisciplinary rounds with resident Dr. Oglesby. I agree with their documented assessment and plan. Patient is hypotensive intermittently, asymptomatic. Giving albumin drip for replacement. paroxysmal afib, started on cardizem drip, patient will need [facility]iary a/c, consider dickson, cardiology consulted. No strong evidence for sepsis, no source suspected. Critical Care Time 35 minutes. Multi-disciplinary rounds were performed with house staff, nursing, speech therapy, respiratory therapy, pharmacy and nutrition with integrated input from the primary team/attending and other consulting services. The documented time is cumulative and includes review of patient data/exams/labs/chart review and examination of the patient on rounds and throughout the day; time is exclusive of any procedures or teaching time. <Mariel Oglesby P - Last Filed: 07/01/18 18:31> CCU Subjective - Physician Review Subjective (Free Text): PGY-1 Critical Care Progress Note Patient seen and examined at bedside. He states that he is feeling "so-so." He denies chest pain at present and states that he "can't tell" if he is having palpitations right now. Denies any increased difficulty breathing (although he states he has generally been short of breath for the past 1.5 months. (Of note, patient has not smoked cigarettes for over a month since he has been hospitalized, and does not plan to resume smoking because he states "I don't need that garbage.") He took a Tramadol shortly prior to examination, after which he felt nauseous and coughed/felt like the pill was coming back up. He did not vomit. Does not feel nauseous right now. Patient otherwise denies any new complaints since admission yesterday. 07/01/18 18:09 CCU Objective - Vital Signs / Intake & Output Vital Signs (Last 4 hours): Vital Signs Pulse Pulse Resp BP Pulse Ox 07/01/18 14:26 90 26 H 83/46 L 99 07/01/18 12:52 105 H 105 H 22 Intake and Output (Last 8hrs): Intake & Output 07/01/18 07/01/18 07/01/18 06:59 14:59 22:59 Intake Total 920 550 Balance 920 550 Intake: Intake, IV Amount 200 250 Right Arm Midline 200 250 Oral 720 300 Other: # Bowel Movements 1 - Physical Exam Head: Positive for: Atraumatic, Normocephalic Extroacular Muscles: Positive for: EOMI Mouth: Positive for: Moist Mucous Membranes Respiratory/Chest: Positive for: Clear to Auscultation, Decreased Breath Sounds , Retracting. Negative for: Wheezes, Rales Cardiovascular: Positive for: Regular Rate and Rhythm, Normal S1, S2 Abdomen: Positive for: Other (soft). Negative for: Tenderness, Peritoneal Signs , Rebound, Guarding Lower Extremity: Positive for: Other (lymphedema bilateral lower all the way up , chronic venous stasis changes) Skin: Positive for: Warm, Dry Psychiatric: Positive for: Alert, Normal Mood - Medications Active Medications: Active Medications Generic Name Dose Route Start Last Admin Trade Name Freq PRN Reason Stop Dose Admin Albumin Human 12.5 gm 07/01/18 15:00 07/01/18 15:20 Albumin Human 25% (12.5 Gm/50 Ml) IV 07/02/18 01:01 12.5 gm Q2H JOSSIE Administration Heparin Sodium (Porcine) 5,000 units 07/01/18 10:00 07/01/18 09:48 Heparin SC 5,000 units Q12 JOSSIE Administration Vancomycin HCl 1 gm/ Sodium 200 mls @ 133.333 mls/hr 07/02/18 10:00 Chloride IVPB TTS JOSSIE Protocol Meropenem 500 mg/ Sodium 100 mls @ 100 mls/hr 07/01/18 00:00 07/01/18 11:36 Chloride IVPB 100 mls/hr Q12H JOSSIE Administration Protocol Diltiazem HCl 125 mg/ Dextrose 125 mls @ 5 mls/hr 07/01/18 13:15 07/01/18 16: 22 IV 5 mg/hr .Q24H JOSSIE 5 mls/hr Protocol Administration 5 MG/HR Midodrine 2.5 mg 07/01/18 12:15 07/01/18 14:26 Proamatine PO 2.5 mg TID JOSSEI Administration Tramadol HCl 50 mg 06/30/18 22:26 07/01/18 15:52 Ultram PO 50 mg Q6H PRN Administration Pain, severe (8-10) - Patient Studies Lab Studies: Microbiology Studies 06/30/18 11:51 Blood Culture - Preliminary Blood NO GROWTH AFTER 24 HOURS 06/30/18 11:51 Blood Culture - Preliminary Blood NO GROWTH AFTER 24 HOURS Lab Studies 07/01/18 07/01/18 07/01/18 Range/Units 16:09 13:41 13:18 WBC (4.8-10.8) K/uL RBC (4.40-5.90) Mil/uL Hgb (12.0-18.0) g/dL Hct (35.0-51.0) % MCV (80.0-94.0) fL MCH (27.0-31.0) pg MCHC (33.0-37.0) g/dL RDW (11.5-14.5) % Plt Count (130-400) K/uL MPV (7.2-11.7) fL Neut % (Auto) (50.0-75.0) % Lymph % (Auto) (20.0-40.0) % [place] % (Auto) (0.0-10.0) % Eos % (Auto) (0.0-4.0) % Baso % (Auto) (0.0-2.0) % Neut # (Auto) (1.8-7.0) K/uL Lymph # (Auto) (1.0-4.3) K/uL [place] # (Auto) (0.0-0.8) K/uL Eos # (Auto) (0.0-0.7) K/uL Baso # (Auto) (0.0-0.2) K/uL Puncture Site Rra pCO2 38 (35-45) mm/Hg pO2 139 H (80-100) mm/Hg HCO3 21.2 (21-28) mmol/L ABG pH 7.34 L (7.35-7.45) ABG Total CO2 21.7 L (22-28) mmol/L ABG O2 Saturation 99.6 H (95-98) % ABG Base Excess -4.8 L (-2.0-3.0) mmol/L Shankar Test Pos ABG Potassium 3.7 (3.6-5.2) mmol/L Glucose 167 H (75-110) mg/dl Lactate 3.6 H (0.7-2.1) mmol/L Liter Flow 4.0 Sodium 140.0 134 (132-148) mmol/L Potassium 5.3 H (3.6-5.2) mmol/L Chloride 114.0 H 93 L (98-107) mmol/L Carbon Dioxide 20 L (22-30) mmol/L Anion Gap 26 H (10-20) BUN 31 H (9-20) mg/dL Creatinine 6.2 H (0.8-1.5) mg/dL Est GFR ( Amer) 12 Est GFR (Non-Af Amer) 10 POC Glucose (mg/dL) 71 (65-110) mg/dL Random Glucose 122 H (75-110) mg/dL Calcium 8.8 (8.6-10.4) mg/dl Phosphorus 7.2 H (2.5-4.5) mg/dL Magnesium 1.9 (1.6-2.3) mg/dL Total Bilirubin 0.7 (0.2-1.3) mg/dL AST 90 H D (17-59) U/L ALT 25 (21-72) U/L Alkaline Phosphatase 184 H D (38-126) U/L Total Creatine Kinase (55-170) U/L CK-MB (Mass) (0.0-3.38) ng/mL Troponin I (0.00-0.120) ng/mL Total Protein 7.5 (6.3-8.3) g/dL Albumin 3.3 L (3.5-5.0) g/dL Globulin 4.2 H (2.2-3.9) gm/dL Albumin/Globulin Ratio 0.8 L (1.0-2.1) Arterial Blood Potassium 3.7 (3.6-5.2) mmol/L 07/01/18 07/01/18 07/01/18 Range/Units 13:12 12:30 12:29 WBC (4.8-10.8) K/uL RBC (4.40-5.90) Mil/uL Hgb (12.0-18.0) g/dL Hct (35.0-51.0) % MCV (80.0-94.0) fL MCH (27.0-31.0) pg MCHC (33.0-37.0) g/dL RDW (11.5-14.5) % Plt Count (130-400) K/uL MPV (7.2-11.7) fL Neut % (Auto) (50.0-75.0) % Lymph % (Auto) (20.0-40.0) % [place] % (Auto) (0.0-10.0) % Eos % (Auto) (0.0-4.0) % Baso % (Auto) (0.0-2.0) % Neut # (Auto) (1.8-7.0) K/uL Lymph # (Auto) (1.0-4.3) K/uL [place] # (Auto) (0.0-0.8) K/uL Eos # (Auto) (0.0-0.7) K/uL Baso # (Auto) (0.0-0.2) K/uL Puncture Site pCO2 (35-45) mm/Hg pO2 (80-100) mm/Hg HCO3 (21-28) mmol/L ABG pH (7.35-7.45) ABG Total CO2 (22-28) mmol/L ABG O2 Saturation (95-98) % ABG Base Excess (-2.0-3.0) mmol/L Shankar Test ABG Potassium (3.6-5.2) mmol/L Glucose (75-110) mg/dl Lactate (0.7-2.1) mmol/L Liter Flow Sodium (132-148) mmol/L Potassium (3.6-5.2) mmol/L Chloride (98-107) mmol/L Carbon Dioxide (22-30) mmol/L Anion Gap (10-20) BUN (9-20) mg/dL Creatinine (0.8-1.5) mg/dL Est GFR ( Amer) Est GFR (Non-Af Amer) POC Glucose (mg/dL) 139 H 66 61 L (65-110) mg/dL Random Glucose (75-110) mg/dL Calcium (8.6-10.4) mg/dl Phosphorus (2.5-4.5) mg/dL Magnesium (1.6-2.3) mg/dL Total Bilirubin (0.2-1.3) mg/dL AST (17-59) U/L ALT (21-72) U/L Alkaline Phosphatase (38-126) U/L Total Creatine Kinase (55-170) U/L CK-MB (Mass) (0.0-3.38) ng/mL Troponin I (0.00-0.120) ng/mL Total Protein (6.3-8.3) g/dL Albumin (3.5-5.0) g/dL Globulin (2.2-3.9) gm/dL Albumin/Globulin Ratio (1.0-2.1) Arterial Blood Potassium (3.6-5.2) mmol/L 07/01/18 07/01/18 07/01/18 Range/Units 11:43 11:41 09:32 WBC (4.8-10.8) K/uL RBC (4.40-5.90) Mil/uL Hgb (12.0-18.0) g/dL Hct (35.0-51.0) % MCV (80.0-94.0) fL MCH (27.0-31.0) pg MCHC (33.0-37.0) g/dL RDW (11.5-14.5) % Plt Count (130-400) K/uL MPV (7.2-11.7) fL Neut % (Auto) (50.0-75.0) % Lymph % (Auto) (20.0-40.0) % [place] % (Auto) (0.0-10.0) % Eos % (Auto) (0.0-4.0) % Baso % (Auto) (0.0-2.0) % Neut # (Auto) (1.8-7.0) K/uL Lymph # (Auto) (1.0-4.3) K/uL [place] # (Auto) (0.0-0.8) K/uL Eos # (Auto) (0.0-0.7) K/uL Baso # (Auto) (0.0-0.2) K/uL Puncture Site pCO2 (35-45) mm/Hg pO2 (80-100) mm/Hg HCO3 (21-28) mmol/L ABG pH (7.35-7.45) ABG Total CO2 (22-28) mmol/L ABG O2 Saturation (95-98) % ABG Base Excess (-2.0-3.0) mmol/L Shankar Test ABG Potassium (3.6-5.2) mmol/L Glucose (75-110) mg/dl Lactate (0.7-2.1) mmol/L Liter Flow Sodium (132-148) mmol/L Potassium (3.6-5.2) mmol/L Chloride (98-107) mmol/L Carbon Dioxide (22-30) mmol/L Anion Gap (10-20) BUN (9-20) mg/dL Creatinine (0.8-1.5) mg/dL Est GFR ( Amer) Est GFR (Non-Af Amer) POC Glucose (mg/dL) 69 69 (65-110) mg/dL Random Glucose (75-110) mg/dL Calcium (8.6-10.4) mg/dl Phosphorus (2.5-4.5) mg/dL Magnesium (1.6-2.3) mg/dL Total Bilirubin (0.2-1.3) mg/dL AST (17-59) U/L ALT (21-72) U/L Alkaline Phosphatase (38-126) U/L Total Creatine Kinase 45 L (55-170) U/L CK-MB (Mass) 0.38 (0.0-3.38) ng/mL Troponin I 0.0380 (0.00-0.120) ng/mL Total Protein (6.3-8.3) g/dL Albumin (3.5-5.0) g/dL Globulin (2.2-3.9) gm/dL Albumin/Globulin Ratio (1.0-2.1) Arterial Blood Potassium (3.6-5.2) mmol/L 07/01/18 07/01/18 07/01/18 Range/Units 09:32 08:06 08:05 WBC 7.8 (4.8-10.8) K/uL RBC 3.34 L (4.40-5.90) Mil/uL Hgb 8.0 L (12.0-18.0) g/dL Hct 25.6 L (35.0-51.0) % MCV 76.9 L (80.0-94.0) fL MCH 24.0 L (27.0-31.0) pg MCHC 31.3 L (33.0-37.0) g/dL RDW 19.9 H (11.5-14.5) % Plt Count 328 (130-400) K/uL MPV 9.1 (7.2-11.7) fL Neut % (Auto) 60.1 (50.0-75.0) % Lymph % (Auto) 23.1 (20.0-40.0) % [place] % (Auto) 15.2 H (0.0-10.0) % Eos % (Auto) 0.2 (0.0-4.0) % Baso % (Auto) 1.4 (0.0-2.0) % Neut # (Auto) 4.7 (1.8-7.0) K/uL Lymph # (Auto) 1.8 (1.0-4.3) K/uL [place] # (Auto) 1.2 H (0.0-0.8) K/uL Eos # (Auto) 0.0 (0.0-0.7) K/uL Baso # (Auto) 0.1 (0.0-0.2) K/uL Puncture Site pCO2 (35-45) mm/Hg pO2 (80-100) mm/Hg HCO3 (21-28) mmol/L ABG pH (7.35-7.45) ABG Total CO2 (22-28) mmol/L ABG O2 Saturation (95-98) % ABG Base Excess (-2.0-3.0) mmol/L Shankar Test ABG Potassium (3.6-5.2) mmol/L Glucose (75-110) mg/dl Lactate (0.7-2.1) mmol/L Liter Flow Sodium (132-148) mmol/L Potassium (3.6-5.2) mmol/L Chloride (98-107) mmol/L Carbon Dioxide (22-30) mmol/L Anion Gap (10-20) BUN (9-20) mg/dL Creatinine (0.8-1.5) mg/dL Est GFR ( Amer) Est GFR (Non-Af Amer) POC Glucose (mg/dL) 72 68 (65-110) mg/dL Random Glucose (75-110) mg/dL Calcium (8.6-10.4) mg/dl Phosphorus (2.5-4.5) mg/dL Magnesium (1.6-2.3) mg/dL Total Bilirubin (0.2-1.3) mg/dL AST (17-59) U/L ALT (21-72) U/L Alkaline Phosphatase (38-126) U/L Total Creatine Kinase (55-170) U/L CK-MB (Mass) (0.0-3.38) ng/mL Troponin I (0.00-0.120) ng/mL Total Protein (6.3-8.3) g/dL Albumin (3.5-5.0) g/dL Globulin (2.2-3.9) gm/dL Albumin/Globulin Ratio (1.0-2.1) Arterial Blood Potassium (3.6-5.2) mmol/L 07/01/18 07/01/18 07/01/18 Range/Units 07:51 07:49 07:14 WBC (4.8-10.8) K/uL RBC (4.40-5.90) Mil/uL Hgb (12.0-18.0) g/dL Hct (35.0-51.0) % MCV (80.0-94.0) fL MCH (27.0-31.0) pg MCHC (33.0-37.0) g/dL RDW (11.5-14.5) % Plt Count (130-400) K/uL MPV (7.2-11.7) fL Neut % (Auto) (50.0-75.0) % Lymph % (Auto) (20.0-40.0) % [place] % (Auto) (0.0-10.0) % Eos % (Auto) (0.0-4.0) % Baso % (Auto) (0.0-2.0) % Neut # (Auto) (1.8-7.0) K/uL Lymph # (Auto) (1.0-4.3) K/uL [place] # (Auto) (0.0-0.8) K/uL Eos # (Auto) (0.0-0.7) K/uL Baso # (Auto) (0.0-0.2) K/uL Puncture Site pCO2 (35-45) mm/Hg pO2 (80-100) mm/Hg HCO3 (21-28) mmol/L ABG pH (7.35-7.45) ABG Total CO2 (22-28) mmol/L ABG O2 Saturation (95-98) % ABG Base Excess (-2.0-3.0) mmol/L Shankar Test ABG Potassium (3.6-5.2) mmol/L Glucose (75-110) mg/dl Lactate (0.7-2.1) mmol/L Liter Flow Sodium (132-148) mmol/L Potassium (3.6-5.2) mmol/L Chloride (98-107) mmol/L Carbon Dioxide (22-30) mmol/L Anion Gap (10-20) BUN (9-20) mg/dL Creatinine (0.8-1.5) mg/dL Est GFR ( Amer) Est GFR (Non-Af Amer) POC Glucose (mg/dL) 54 L 60 L 66 (65-110) mg/dL Random Glucose (75-110) mg/dL Calcium (8.6-10.4) mg/dl Phosphorus (2.5-4.5) mg/dL Magnesium (1.6-2.3) mg/dL Total Bilirubin (0.2-1.3) mg/dL AST (17-59) U/L ALT (21-72) U/L Alkaline Phosphatase (38-126) U/L Total Creatine Kinase (55-170) U/L CK-MB (Mass) (0.0-3.38) ng/mL Troponin I (0.00-0.120) ng/mL Total Protein (6.3-8.3) g/dL Albumin (3.5-5.0) g/dL Globulin (2.2-3.9) gm/dL Albumin/Globulin Ratio (1.0-2.1) Arterial Blood Potassium (3.6-5.2) mmol/L 07/01/18 06/30/18 06/30/18 Range/Units 07:11 21:15 19:07 WBC (4.8-10.8) K/uL RBC (4.40-5.90) Mil/uL Hgb (12.0-18.0) g/dL Hct (35.0-51.0) % MCV (80.0-94.0) fL MCH (27.0-31.0) pg MCHC (33.0-37.0) g/dL RDW (11.5-14.5) % Plt Count (130-400) K/uL MPV (7.2-11.7) fL Neut % (Auto) (50.0-75.0) % Lymph % (Auto) (20.0-40.0) % [place] % (Auto) (0.0-10.0) % Eos % (Auto) (0.0-4.0) % Baso % (Auto) (0.0-2.0) % Neut # (Auto) (1.8-7.0) K/uL Lymph # (Auto) (1.0-4.3) K/uL [place] # (Auto) (0.0-0.8) K/uL Eos # (Auto) (0.0-0.7) K/uL Baso # (Auto) (0.0-0.2) K/uL Puncture Site pCO2 (35-45) mm/Hg pO2 (80-100) mm/Hg HCO3 (21-28) mmol/L ABG pH (7.35-7.45) ABG Total CO2 (22-28) mmol/L ABG O2 Saturation (95-98) % ABG Base Excess (-2.0-3.0) mmol/L Shankar Test ABG Potassium (3.6-5.2) mmol/L Glucose (75-110) mg/dl Lactate (0.7-2.1) mmol/L Liter Flow Sodium (132-148) mmol/L Potassium (3.6-5.2) mmol/L Chloride (98-107) mmol/L Carbon Dioxide (22-30) mmol/L Anion Gap (10-20) BUN (9-20) mg/dL Creatinine (0.8-1.5) mg/dL Est GFR ( Amer) Est GFR (Non-Af Amer) POC Glucose (mg/dL) 59 L 93 76 (65-110) mg/dL Random Glucose (75-110) mg/dL Calcium (8.6-10.4) mg/dl Phosphorus (2.5-4.5) mg/dL Magnesium (1.6-2.3) mg/dL Total Bilirubin (0.2-1.3) mg/dL AST (17-59) U/L ALT (21-72) U/L Alkaline Phosphatase (38-126) U/L Total Creatine Kinase (55-170) U/L CK-MB (Mass) (0.0-3.38) ng/mL Troponin I (0.00-0.120) ng/mL Total Protein (6.3-8.3) g/dL Albumin (3.5-5.0) g/dL Globulin (2.2-3.9) gm/dL Albumin/Globulin Ratio (1.0-2.1) Arterial Blood Potassium (3.6-5.2) mmol/L Laboratory Results - last 24 hr 06/30/18 06/30/18 07/01/18 19:07 21:15 07:11 WBC RBC Hgb Hct MCV MCH MCHC RDW Plt Count MPV Neut % (Auto) Lymph % (Auto) [place] % (Auto) Eos % (Auto) Baso % (Auto) Neut # (Auto) Lymph # (Auto) [place] # (Auto) Eos # (Auto) Baso # (Auto) Puncture Site pCO2 pO2 HCO3 ABG pH ABG Total CO2 ABG O2 Saturation ABG Base Excess Shankar Test ABG Potassium Glucose Lactate Liter Flow Sodium Potassium Chloride Carbon Dioxide Anion Gap BUN Creatinine Est GFR ( Amer) Est GFR (Non-Af Amer) POC Glucose (mg/dL) 76 93 59 L Random Glucose Calcium Phosphorus Magnesium Total Bilirubin AST ALT Alkaline Phosphatase Total Creatine Kinase CK-MB (Mass) Troponin I Total Protein Albumin Globulin Albumin/Globulin Ratio Arterial Blood Potassium 07/01/18 07/01/18 07/01/18 07:14 07:49 07:51 WBC RBC Hgb Hct MCV MCH MCHC RDW Plt Count MPV Neut % (Auto) Lymph % (Auto) [place] % (Auto) Eos % (Auto) Baso % (Auto) Neut # (Auto) Lymph # (Auto) [place] # (Auto) Eos # (Auto) Baso # (Auto) Puncture Site pCO2 pO2 HCO3 ABG pH ABG Total CO2 ABG O2 Saturation ABG Base Excess Shankar Test ABG Potassium Glucose Lactate Liter Flow Sodium Potassium Chloride Carbon Dioxide Anion Gap BUN Creatinine Est GFR ( Amer) Est GFR (Non-Af Amer) POC Glucose (mg/dL) 66 60 L 54 L Random Glucose Calcium Phosphorus Magnesium Total Bilirubin AST ALT Alkaline Phosphatase Total Creatine Kinase CK-MB (Mass) Troponin I Total Protein Albumin Globulin Albumin/Globulin Ratio Arterial Blood Potassium 07/01/18 07/01/18 07/01/18 08:05 08:06 09:32 WBC 7.8 RBC 3.34 L Hgb 8.0 L Hct 25.6 L MCV 76.9 L MCH 24.0 L MCHC 31.3 L RDW 19.9 H Plt Count 328 MPV 9.1 Neut % (Auto) 60.1 Lymph % (Auto) 23.1 [place] % (Auto) 15.2 H Eos % (Auto) 0.2 Baso % (Auto) 1.4 Neut # (Auto) 4.7 Lymph # (Auto) 1.8 [place] # (Auto) 1.2 H Eos # (Auto) 0.0 Baso # (Auto) 0.1 Puncture Site pCO2 pO2 HCO3 ABG pH ABG Total CO2 ABG O2 Saturation ABG Base Excess Shankar Test ABG Potassium Glucose Lactate Liter Flow Sodium Potassium Chloride Carbon Dioxide Anion Gap BUN Creatinine Est GFR ( Amer) Est GFR (Non-Af Amer) POC Glucose (mg/dL) 68 72 Random Glucose Calcium Phosphorus Magnesium Total Bilirubin AST ALT Alkaline Phosphatase Total Creatine Kinase CK-MB (Mass) Troponin I Total Protein Albumin Globulin Albumin/Globulin Ratio Arterial Blood Potassium 07/01/18 07/01/18 07/01/18 09:32 11:41 11:43 WBC RBC Hgb Hct MCV MCH MCHC RDW Plt Count MPV Neut % (Auto) Lymph % (Auto) [place] % (Auto) Eos % (Auto) Baso % (Auto) Neut # (Auto) Lymph # (Auto) [place] # (Auto) Eos # (Auto) Baso # (Auto) Puncture Site pCO2 pO2 HCO3 ABG pH ABG Total CO2 ABG O2 Saturation ABG Base Excess Shankar Test ABG Potassium Glucose Lactate Liter Flow Sodium Potassium Chloride Carbon Dioxide Anion Gap BUN Creatinine Est GFR ( Amer) Est GFR (Non-Af Amer) POC Glucose (mg/dL) 69 69 Random Glucose Calcium Phosphorus Magnesium Total Bilirubin AST ALT Alkaline Phosphatase Total Creatine Kinase 45 L CK-MB (Mass) 0.38 Troponin I 0.0380 Total Protein Albumin Globulin Albumin/Globulin Ratio Arterial Blood Potassium 07/01/18 07/01/18 07/01/18 12:29 12:30 13:12 WBC RBC Hgb Hct MCV MCH MCHC RDW Plt Count MPV Neut % (Auto) Lymph % (Auto) [place] % (Auto) Eos % (Auto) Baso % (Auto) Neut # (Auto) Lymph # (Auto) [place] # (Auto) Eos # (Auto) Baso # (Auto) Puncture Site pCO2 pO2 HCO3 ABG pH ABG Total CO2 ABG O2 Saturation ABG Base Excess Shnakar Test ABG Potassium Glucose Lactate Liter Flow Sodium Potassium Chloride Carbon Dioxide Anion Gap BUN Creatinine Est GFR ( Amer) Est GFR (Non-Af Amer) POC Glucose (mg/dL) 61 L 66 139 H Random Glucose Calcium Phosphorus Magnesium Total Bilirubin AST ALT Alkaline Phosphatase Total Creatine Kinase CK-MB (Mass) Troponin I Total Protein Albumin Globulin Albumin/Globulin Ratio Arterial Blood Potassium 07/01/18 07/01/18 07/01/18 13:18 13:41 16:09 WBC RBC Hgb Hct MCV MCH MCHC RDW Plt Count MPV Neut % (Auto) Lymph % (Auto) [place] % (Auto) Eos % (Auto) Baso % (Auto) Neut # (Auto) Lymph # (Auto) [place] # (Auto) Eos # (Auto) Baso # (Auto) Puncture Site Rra pCO2 38 pO2 139 H HCO3 21.2 ABG pH 7.34 L ABG Total CO2 21.7 L ABG O2 Saturation 99.6 H ABG Base Excess -4.8 L Shankar Test Pos ABG Potassium 3.7 Glucose 167 H Lactate 3.6 H Liter Flow 4.0 Sodium 134 140.0 Potassium 5.3 H Chloride 93 L 114.0 H Carbon Dioxide 20 L Anion Gap 26 H BUN 31 H Creatinine 6.2 H Est GFR ( Amer) 12 Est GFR (Non-Af Amer) 10 POC Glucose (mg/dL) 71 Random Glucose 122 H Calcium 8.8 Phosphorus 7.2 H Magnesium 1.9 Total Bilirubin 0.7 AST 90 H D ALT 25 Alkaline Phosphatase 184 H D Total Creatine Kinase CK-MB (Mass) Troponin I Total Protein 7.5 Albumin 3.3 L Globulin 4.2 H Albumin/Globulin Ratio 0.8 L Arterial Blood Potassium 3.7 EKG/Cardiology Studies: Cardiology / EKG Studies 07/01/18 07:56 EKG [ELECTROCARDIOGRAM] Stat Comment: Mode Of Transportation: Reason For Exam: quetsionable afib Fingerstick Blood Sugar Results: 93 Review of Systems - Review of Systems All systems: reviewed and no additional remarkable complaints except (as per HPI ) Critical Care Progress Note - Prophylaxis DVT Prophylaxis DVT: Heparin SQ - Nutrition Nutrition: Nutrition Category Date Time Status Renal Diet [DIET] Diets 07/01/18 Dinner Active Assessment/Plan - Assessment and Plan (Free Text) Plan: 52 yo male, with past medical history of hypertension, COPD, ESRD on HD, chronic kidney disease, obesity, comes [facility] ER from [facility] as he was there after a recent admission at [facility] due to sepsis. Patient presented to ED c/o chest pain radiating to L arm and SOB during dialysis and admitted for hypotension. Today, 07/01/18, patient was transferred to ICU for low blood pressure 75/45 and runs of paroxysmal Afib. Neuro: monitor for changes from baseline Analgesia: Tramadol 50mg PO Q6H Cardio: Troponin: neg x2 EKG: Atrial fibrillation at 169 bpm Echo f/u Dr. Álvarez, cardiology, consulted. Help appreciated. Midodrine 2.5mg PO TID Cardizem drip 125ml @5mls/hr Pulmonary: SpO2 100% on 3L O2 NC CXR 07/01/18: interval significant improvement in the aeration of the lungs without significant pulmonary venous congestion or consolidation. (see full report) blood gas: pCO2: 38, pO2: 139, HCO3: 21.2, pH: 7.34 GI: Renal diet Renal: Dialysis TTS Albumin 12.5gm IV Q2H Dr. Mota, nephrology, consulted. Help appreciated. Endo: RISS-low hypoglycemia protocol monitor Heme: H/H: 07/23.6 conintue to monitor ID: [id number] blood culture: preliminary, no growth 24 hours Meropenem 500mg Q12H PPX: Heparin 5000u SC Q12H Dispo: Continue ICU care. Case was reviewed and discussed with attending physician, Dr. Nunes
[2018-07-01 17:33] LABS: CK-MB 0.44 ng/mL (0.0-3.38)
[2018-07-01] MEDS ORDERED: Glucagon Recombinant 1 mg Inj IM PRN (18:25)
--- NOTE | 2018-07-01 18:54 | CP.PCM.CON ---
History of Present Illness - History of Present Illness History of Present Illness: I was asked to see patient by Dr stapleton Patient is a 52 year old male with PMH HTN, hypercholesterolemia ESRD who presenst with dyspnea and chest pain. The patient was found to be in atrial fibrillation. He was given midodrine. the patient was started on cardizem. he is currently in ICU. Review of Systems - Constitutional Constitutional: absent: As Per HPI, Anorexia, Chills, Daytime Sleepiness, Excessive Sweating, Fatigue, Fever, Frequent Falls, Headache, Increased Appetite , Lethargy, Malaise, Night Sweats, Snoring, Sleep Apnea, Weight Gain, Weight Loss, Weakness, Other - EENT Eyes: absent: As Per HPI, Blind Spots, Blurred Vision, Change in Vision, Decreased Night Vision, Diplopia, Discharge, Dry Eye, Exophthalmos, Floaters, Irritation, Itchy Eyes, Loss of Peripheral Vision, Pain, Photophobia, Requires Corrective Lenses, Sees Flashes, Spots in Vision, Tunnel Vision, Other Visual Disturbances, Loss of Vision, Other Ears: absent: As Per HPI, Decreased Hearing, Ear Discharge, Ear Pain, Tinnitus, Abnormal Hearing, Disequilibrium, Dizziness, Other Nose/Mouth/Throat: absent: As Per HPI, Epistaxis, Nasal Congestion, Nasal Discharge, Nasal Obstruction, Nasal Trauma, Nose Pain, Post Nasal Drip, Sinus Pain, Sinus Pressure, Bleeding Gums, Change in Voice, Dental Pain, Dry Mouth, Dysphagia, Halitosis, Hoarsness, Lip Swelling, Mouth Lesions, Mouth Pain, Odynophagia, Sore Throat, Throat Swelling, Tongue Swelling, Facial Pain, Neck Pain, Neck Mass, Other - Cardiovascular Cardiovascular: Irregular Heart Rhythm - Respiratory Respiratory: Dyspnea - Gastrointestinal Gastrointestinal: absent: As Per HPI, Abdominal Pain, Belching, Bloating, Change in Bowel Habits, Change in Stool Character, Coffee Ground Emesis, Constipation, Cramping, Diarrhea, Dyspepsia, Dysphagia, Early Satiety, Excessive Flatus, Fecal Incontinence, Heartburn, Hematemesis, Hematochezia, Loose Stools, Melena, Nausea, Odynophagia, Temesmus, Vomiting, Other - Genitourinary Genitourinary: absent: As Per HPI, Change in Urinary Stream, Difficulty Urinating, Dysuria, Flank Pain, Hematuria, Pyuria, Nocturia, Urinary Incontinence, Urinary Frequency, Urinary Hesitance, Urinary Urgency, Voiding Freq/Small Amts, Freq UTI, Hx Renal/Bladder Calculi, Hx /Renal Surgery, Bladder Distension, Other - Musculoskeletal Musculoskeletal: absent: As Per HPI, Abnormal Gait, Arthralgias, Atrophy, Back Pain, Deformity, Joint Swelling, Limited Range of Motion, Loss of Height, Muscle Cramps, Muscle Weakness, Myalgias, Neck Pain, Numbness, Radiating Pain into Limb, Stiffness, Tingling, Other - Integumentary Integumentary: absent: As Per HPI, Acne, Alopecia, Bleeding Lesions, Change in Hair, Change in Nails, Change in Pigmentation, Changing Lesions, Dry Skin, Erythema, Furuncle, Hirsutism, Lesions, New Lesions, Non-Healing Lesions, Photosensitivity, Pruritus, Rash, Skin Pain, Skin Ulcer, Sores, Striae, Swelling , Unusual Bruising, Wounds, Jaundice, Other - Neurological Neurological: absent: As Per HPI, Abnormal Gait, Abnormal Hearing, Abnormal Movements, Abnormal Speech, Behavioral Changes, Burning Sensations, Confusion, Convulsions, Disequilibrium, Dizziness, Numbness, Focal Weakness, Frequent Falls , Headaches, Lack of Coordination, Loss of Vision, Memory Loss, Paresthesias, Radicular Pain, Restless Legs, Sensory Deficit, Syncope, Tingling, Tremor, Vertigo, Weakness, Other Visual Disturbances, Other - Psychiatric Psychiatric: absent: As Per HPI, Abnormal Sleep Pattern, Anhedonia, Anxiety, Auditory Hallucinations, Behavioral Changes, Change in Appetite, Change in Libido, Confusion, Depression, Difficulty Concentrating, Hallucinations, Homicidal Ideation, Hopelessness, Irritability, Memory Loss, Mood Swings, Panic Attacks, Paranoia, Suicidal Ideation, Visual Hallucinations, Tactile Hallucinations, Other - Endocrine Endocrine: absent: As Per HPI, Change in Body Appearance, Change in Libido, Cold Intolorance, Deepening of Voice, Excessive Sweating, Fatigue, Flushing, Heat Intolorance, Increase in Ring/Shoe/Hat Size, Palpitations, Polydipsia, Polyphagia, Polyuria, Other - Hematologic/Lymphatic Hematologic: absent: As Per HPI, Easy Bleeding, Easy Bruising, Lymphadenopathy, Other Past Patient History - Infectious Disease Hx of Infectious Diseases: None - Past Medical History & Family History Past Medical History?: Yes - Past Social History Smoking Status: Never Smoked - CARDIAC Hx Hypertension: Yes Hx Peripheral Edema: Yes - PULMONARY Hx Asthma: Yes Hx Bronchitis: Yes Hx Chronic Obstructive Pulmonary Disease (COPD): Yes Hx Sleep Apnea: No - NEUROLOGICAL Hx Neurological Disorder: No - HEENT Hx HEENT Problems: No - RENAL Hx Chronic Kidney Disease: Yes Date of Last Dialysis Treatment: 06/30/18 - ENDOCRINE/METABOLIC Hx Diabetes Mellitus Type 2: Yes - HEMATOLOGICAL/ONCOLOGICAL Hx Anemia: Yes - INTEGUMENTARY Hx Dermatological Problems: Yes Hx Cellulitis: Yes (BILATERAL LEGS) - MUSCULOSKELETAL/RHEUMATOLOGICAL Hx Falls: No - GASTROINTESTINAL Hx Gastrointestinal Disorders: Yes Hx Gastroesophageal Reflux: Yes - GENITOURINARY/GYNECOLOGICAL Hx Genitourinary Disorders: No - PSYCHIATRIC Hx Substance Use: No - SURGICAL HISTORY Hx Surgeries: Yes (Left arm AV Fistula) Hx Vascular Surgery: Yes ([facility]) - ANESTHESIA Hx Anesthesia: Yes Hx Anesthesia Reactions: No Hx Malignant Hyperthermia: No Meds Allergies/Adverse Reactions: Allergies Allergy/AdvReac Type Severity Reaction Status Date / Time Penicillins Allergy Verified 06/30/18 10:02 tazobactam [From Zosyn] Allergy Verified 06/30/18 10:02 piperacillin AdvReac ITCHING, Verified 06/30/18 10:02 SHORTNESS OF BREATH PET DANDER Allergy Severe CONGESTION Uncoded 06/30/18 10:02 - Medications Medications: Current Medications Albumin Human (Albumin Human 25% (12.5 Gm/50 Ml)) 12.5 gm IV Q2H JOSSIE Stop: 07/02/18 01:01 Last Admin: 07/01/18 16:58 Dose: 12.5 gm Dextrose (Dextrose 50% Inj) 0 ml IV STAT PRN; Protocol PRN Reason: Hypoglycemia Protocol Dextrose (Glutose 15) 0 gm PO ONCE PRN; Protocol PRN Reason: Hypoglycemia Protocol Glucagon (Glucagen Diagnostic Kit) 0 mg IM STAT PRN; Protocol PRN Reason: Hypoglycemia Protocol Heparin Sodium (Porcine) (Heparin) 5,000 units SC Q12 JOSSIE Last Admin: 07/01/18 09:48 Dose: 5,000 units Vancomycin HCl 1 gm/ Sodium (Chloride) 200 mls @ 133.333 mls/hr IVPB TTS JOSSIE PRN Reason: Protocol Meropenem 500 mg/ Sodium (Chloride) 100 mls @ 100 mls/hr IVPB Q12H JOSSIE PRN Reason: Protocol Last Admin: 07/01/18 11:36 Dose: 100 mls/hr Diltiazem HCl 125 mg/ Dextrose 125 mls @ 5 mls/hr IV .Q24H JOSSIE; 5 MG/HR PRN Reason: Protocol Last Admin: 07/01/18 16:22 Dose: 5 mg/hr, 5 mls/hr Dextrose (Dextrose 5% In Water 1000 Ml) 1,000 mls @ 0 mls/hr IV .Q0M PRN; Protocol; Per Protocol PRN Reason: Hypoglycemia Protocol Insulin Human Regular (Novolin R) 0 unit SC ACHS JOSSIE PRN Reason: Protocol Midodrine (Proamatine) 2.5 mg PO TID JOSSIE Last Admin: 07/01/18 17:00 Dose: 2.5 mg Tramadol HCl (Ultram) 50 mg PO Q6H PRN PRN Reason: Pain, severe (8-10) Last Admin: 07/01/18 15:52 Dose: 50 mg Physical Exam - Constitutional Appears: Chronically Ill - Head Exam Head Exam: NORMAL INSPECTION - Eye Exam Eye Exam: Normal appearance - ENT Exam ENT Exam: Mucous Membranes Moist - Neck Exam Neck exam: Positive for: Full Rom - Respiratory Exam Respiratory Exam: Decreased Breath Sounds - Cardiovascular Exam Cardiovascular Exam: Irregular Rhythm - GI/Abdominal Exam GI & Abdominal Exam: Normal Bowel Sounds - Rectal Exam Rectal Exam: Deferred - Extremities Exam Extremities exam: Negative for: pedal edema - Back Exam Back exam: NORMAL INSPECTION - Neurological Exam Neurological exam: Alert, Oriented x3 - Psychiatric Exam Psychiatric exam: Normal Affect - Skin Skin Exam: Normal Color Results - Vital Signs Recent Vital Signs: Last Vital Signs Temp 97.6 F 07/01/18 16:00 Pulse 183 H 07/01/18 16:00 Resp 22 07/01/18 16:00 BP 120/69 07/01/18 15:54 Pulse Ox 100 07/01/18 16:00 - Labs Result Diagrams: 07/01/18 09:32 07/01/18 13:18 Labs: Laboratory Results - last 24 hr 06/30/18 06/30/18 07/01/18 19:07 21:15 07:11 WBC RBC Hgb Hct MCV MCH MCHC RDW Plt Count MPV Neut % (Auto) Lymph % (Auto) Craven % (Auto) Eos % (Auto) Baso % (Auto) Neut # (Auto) Lymph # (Auto) [place]ven # (Auto) Eos # (Auto) Baso # (Auto) Puncture Site pCO2 pO2 HCO3 ABG pH ABG Total CO2 ABG O2 Saturation ABG Base Excess Shankar Test ABG Potassium Glucose Lactate Liter Flow Sodium Potassium Chloride Carbon Dioxide Anion Gap BUN Creatinine Est GFR ( Amer) Est GFR (Non-Af Amer) POC Glucose (mg/dL) 76 93 59 L Random Glucose Calcium Phosphorus Magnesium Total Bilirubin AST ALT Alkaline Phosphatase Total Creatine Kinase CK-MB (Mass) Troponin I Total Protein Albumin Globulin Albumin/Globulin Ratio Arterial Blood Potassium 07/01/18 07/01/18 07/01/18 07:14 07:49 07:51 WBC RBC Hgb Hct MCV MCH MCHC RDW Plt Count MPV Neut % (Auto) Lymph % (Auto) Craven % (Auto) Eos % (Auto) Baso % (Auto) Neut # (Auto) Lymph # (Auto) [place]ven # (Auto) Eos # (Auto) Baso # (Auto) Puncture Site pCO2 pO2 HCO3 ABG pH ABG Total CO2 ABG O2 Saturation ABG Base Excess Shankar Test ABG Potassium Glucose Lactate Liter Flow Sodium Potassium Chloride Carbon Dioxide Anion Gap BUN Creatinine Est GFR ( Amer) Est GFR (Non-Af Amer) POC Glucose (mg/dL) 66 60 L 54 L Random Glucose Calcium Phosphorus Magnesium Total Bilirubin AST ALT Alkaline Phosphatase Total Creatine Kinase CK-MB (Mass) Troponin I Total Protein Albumin Globulin Albumin/Globulin Ratio Arterial Blood Potassium 07/01/18 07/01/18 07/01/18 08:05 08:06 09:32 WBC 7.8 RBC 3.34 L Hgb 8.0 L Hct 25.6 L MCV 76.9 L MCH 24.0 L MCHC 31.3 L RDW 19.9 H Plt Count 328 MPV 9.1 Neut % (Auto) 60.1 Lymph % (Auto) 23.1 Craven % (Auto) 15.2 H Eos % (Auto) 0.2 Baso % (Auto) 1.4 Neut # (Auto) 4.7 Lymph # (Auto) 1.8 Craven # (Auto) 1.2 H Eos # (Auto) 0.0 Baso # (Auto) 0.1 Puncture Site pCO2 pO2 HCO3 ABG pH ABG Total CO2 ABG O2 Saturation ABG Base Excess Shankar Test ABG Potassium Glucose Lactate Liter Flow Sodium Potassium Chloride Carbon Dioxide Anion Gap BUN Creatinine Est GFR ( Amer) Est GFR (Non-Af Amer) POC Glucose (mg/dL) 68 72 Random Glucose Calcium Phosphorus Magnesium Total Bilirubin AST ALT Alkaline Phosphatase Total Creatine Kinase CK-MB (Mass) Troponin I Total Protein Albumin Globulin Albumin/Globulin Ratio Arterial Blood Potassium 07/01/18 07/01/18 07/01/18 09:32 11:41 11:43 WBC RBC Hgb Hct MCV MCH MCHC RDW Plt Count MPV Neut % (Auto) Lymph % (Auto) Craven % (Auto) Eos % (Auto) Baso % (Auto) Neut # (Auto) Lymph # (Auto) Craven # (Auto) Eos # (Auto) Baso # (Auto) Puncture Site pCO2 pO2 HCO3 ABG pH ABG Total CO2 ABG O2 Saturation ABG Base Excess Shankar Test ABG Potassium Glucose Lactate Liter Flow Sodium Potassium Chloride Carbon Dioxide Anion Gap BUN Creatinine Est GFR ( Amer) Est GFR (Non-Af Amer) POC Glucose (mg/dL) 69 69 Random Glucose Calcium Phosphorus Magnesium Total Bilirubin AST ALT Alkaline Phosphatase Total Creatine Kinase 45 L CK-MB (Mass) 0.38 Troponin I 0.0380 Total Protein Albumin Globulin Albumin/Globulin Ratio Arterial Blood Potassium 07/01/18 07/01/18 07/01/18 12:29 12:30 13:12 WBC RBC Hgb Hct MCV MCH MCHC RDW Plt Count MPV Neut % (Auto) Lymph % (Auto) Craven % (Auto) Eos % (Auto) Baso % (Auto) Neut # (Auto) Lymph # (Auto) Craven # (Auto) Eos # (Auto) Baso # (Auto) Puncture Site pCO2 pO2 HCO3 ABG pH ABG Total CO2 ABG O2 Saturation ABG Base Excess Shankar Test ABG Potassium Glucose Lactate Liter Flow Sodium Potassium Chloride Carbon Dioxide Anion Gap BUN Creatinine Est GFR ( Amer) Est GFR (Non-Af Amer) POC Glucose (mg/dL) 61 L 66 139 H Random Glucose Calcium Phosphorus Magnesium Total Bilirubin AST ALT Alkaline Phosphatase Total Creatine Kinase CK-MB (Mass) Troponin I Total Protein Albumin Globulin Albumin/Globulin Ratio Arterial Blood Potassium 07/01/18 07/01/18 07/01/18 13:18 13:41 15:42 WBC RBC Hgb Hct MCV MCH MCHC RDW Plt Count MPV Neut % (Auto) Lymph % (Auto) Craven % (Auto) Eos % (Auto) Baso % (Auto) Neut # (Auto) Lymph # (Auto) Craven # (Auto) Eos # (Auto) Baso # (Auto) Puncture Site Rra pCO2 38 pO2 139 H HCO3 21.2 ABG pH 7.34 L ABG Total CO2 21.7 L ABG O2 Saturation 99.6 H ABG Base Excess -4.8 L Shankar Test Pos ABG Potassium 3.7 Glucose 167 H Lactate 3.6 H Liter Flow 4.0 Sodium 134 140.0 Potassium 5.3 H Chloride 93 L 114.0 H Carbon Dioxide 20 L Anion Gap 26 H BUN 31 H Creatinine 6.2 H Est GFR ( Amer) 12 Est GFR (Non-Af Amer) 10 POC Glucose (mg/dL) Random Glucose 122 H Calcium 8.8 Phosphorus 7.2 H Magnesium 1.9 Total Bilirubin 0.7 AST 90 H D ALT 25 Alkaline Phosphatase 184 H D Total Creatine Kinase 21 L CK-MB (Mass) 0.44 Troponin I 0.0400 Total Protein 7.5 Albumin 3.3 L Globulin 4.2 H Albumin/Globulin Ratio 0.8 L Arterial Blood Potassium 3.7 07/01/18 16:09 WBC RBC Hgb Hct MCV MCH MCHC RDW Plt Count MPV Neut % (Auto) Lymph % (Auto) [place]ven % (Auto) Eos % (Auto) Baso % (Auto) Neut # (Auto) Lymph # (Auto) [place]ven # (Auto) Eos # (Auto) Baso # (Auto) Puncture Site pCO2 pO2 HCO3 ABG pH ABG Total CO2 ABG O2 Saturation ABG Base Excess Shankar Test ABG Potassium Glucose Lactate Liter Flow Sodium Potassium Chloride Carbon Dioxide Anion Gap BUN Creatinine Est GFR ( Amer) Est GFR (Non-Af Amer) POC Glucose (mg/dL) 71 Random Glucose Calcium Phosphorus Magnesium Total Bilirubin AST ALT Alkaline Phosphatase Total Creatine Kinase CK-MB (Mass) Troponin I Total Protein Albumin Globulin Albumin/Globulin Ratio Arterial Blood Potassium - EKG Data EKG Interpreted by: Myself Assessment & Plan (1) Atrial fibrillation Assessment and Plan: will use rate control with cardizem. the chronicity of his afib is unclear therefore I recommend caution with amidoarone for concern of thomboembolism. recommend anticoagulation if feasible. Status: Acute
--- NOTE | 2018-07-01 19:45 | CP.PCM.PN ---
Subjective - Date & Time of Evaluation Date of Evaluation: 07/01/18 Time of Evaluation: 11:00 - Subjective Subjective: clinically same Objective - Vital Signs/Intake and Output Vital Signs (last 24 hours): Temp Pulse Resp BP Pulse Ox 97.6 F 183 H 22 120/69 100 07/01/18 16:00 07/01/18 16:00 07/01/18 16:00 07/01/18 15:54 07/01/18 16:00 Intake and Output: 07/01/18 07/02/18 18:59 06:59 Intake Total 550 Balance 550 - Medications Medications: Current Medications Albumin Human (Albumin Human 25% (12.5 Gm/50 Ml)) 12.5 gm IV Q2H JOSSIE Stop: 07/02/18 01:01 Last Admin: 07/01/18 18:54 Dose: 12.5 gm Dextrose (Dextrose 50% Inj) 0 ml IV STAT PRN; Protocol PRN Reason: Hypoglycemia Protocol Dextrose (Glutose 15) 0 gm PO ONCE PRN; Protocol PRN Reason: Hypoglycemia Protocol Glucagon (Glucagen Diagnostic Kit) 0 mg IM STAT PRN; Protocol PRN Reason: Hypoglycemia Protocol Heparin Sodium (Porcine) (Heparin) 5,000 units SC Q12 JOSSIE Last Admin: 07/01/18 09:48 Dose: 5,000 units Vancomycin HCl 1 gm/ Sodium (Chloride) 200 mls @ 133.333 mls/hr IVPB TTS JOSSIE PRN Reason: Protocol Meropenem 500 mg/ Sodium (Chloride) 100 mls @ 100 mls/hr IVPB Q12H JOSSIE PRN Reason: Protocol Last Admin: 07/01/18 11:36 Dose: 100 mls/hr Diltiazem HCl 125 mg/ Dextrose 125 mls @ 5 mls/hr IV .Q24H JOSSIE; 5 MG/HR PRN Reason: Protocol Last Admin: 07/01/18 16:22 Dose: 5 mg/hr, 5 mls/hr Dextrose (Dextrose 5% In Water 1000 Ml) 1,000 mls @ 0 mls/hr IV .Q0M PRN; Protocol; Per Protocol PRN Reason: Hypoglycemia Protocol Insulin Human Regular (Novolin R) 0 unit SC ACHS JOSSIE PRN Reason: Protocol Midodrine (Proamatine) 2.5 mg PO TID JOSSIE Last Admin: 07/01/18 17:00 Dose: 2.5 mg Tramadol HCl (Ultram) 50 mg PO Q6H PRN PRN Reason: Pain, severe (8-10) Last Admin: 07/01/18 15:52 Dose: 50 mg - Labs Labs: 07/01/18 09:32 07/01/18 13:18 - Constitutional Appears: Well - Head Exam Head Exam: ATRAUMATIC, NORMAL INSPECTION, NORMOCEPHALIC - Eye Exam Eye Exam: EOMI, Normal appearance, PERRL Pupil Exam: NORMAL ACCOMODATION, PERRL - ENT Exam ENT Exam: Mucous Membranes Moist, Normal Exam - Neck Exam Neck Exam: Full ROM, Normal Inspection. absent: Lymphadenopathy - Respiratory Exam Respiratory Exam: Decreased Breath Sounds - Cardiovascular Exam Cardiovascular Exam: REGULAR RHYTHM, +S1, +S2 - GI/Abdominal Exam GI & Abdominal Exam: Soft, Diminished Bowel Sounds - Rectal Exam Rectal Exam: Deferred
[2018-07-01] MEDS: Dextrose 50% SYRINGE Inj (50 ml) IV PRN (20:51)
--- NOTE | 2018-07-01 20:57 | CARD ---
APPROVED REPORT Date of service: 06/30/2018 EKG Measurement Heart [id number] <Conclusion> Atrial fibrillation Low voltage QRS Nonspecific T wave abnormality Abnormal ECG
[2018-07-01] MEDS ORDERED: Dextrose 5%/0.9% NS 1,000 ML IV ONE (21:15)
[2018-07-01] MEDS ORDERED: (Novolin R) Insulin Human Regular 100 units/ml vial SC SCH (22:00)
--- NOTE | 2018-07-01 22:10 | CP.PCM.CON ---
History of Present Illness - History of Present Illness History of Present Illness: dictated Past Patient History - Infectious Disease Hx of Infectious Diseases: None - Past Medical History & Family History Past Medical History?: Yes - Past Social History Smoking Status: Never Smoked - CARDIAC Hx Hypertension: Yes Hx Peripheral Edema: Yes - PULMONARY Hx Asthma: Yes Hx Bronchitis: Yes Hx Chronic Obstructive Pulmonary Disease (COPD): Yes Hx Sleep Apnea: No - NEUROLOGICAL Hx Neurological Disorder: No - HEENT Hx HEENT Problems: No - RENAL Hx Chronic Kidney Disease: Yes Date of Last Dialysis Treatment: 06/30/18 - ENDOCRINE/METABOLIC Hx Diabetes Mellitus Type 2: Yes - HEMATOLOGICAL/ONCOLOGICAL Hx Anemia: Yes - INTEGUMENTARY Hx Dermatological Problems: Yes Hx Cellulitis: Yes (BILATERAL LEGS) - MUSCULOSKELETAL/RHEUMATOLOGICAL Hx Falls: No - GASTROINTESTINAL Hx Gastrointestinal Disorders: Yes Hx Gastroesophageal Reflux: Yes - GENITOURINARY/GYNECOLOGICAL Hx Genitourinary Disorders: No - PSYCHIATRIC Hx Substance Use: No - SURGICAL HISTORY Hx Surgeries: Yes (Left arm AV Fistula) Hx Vascular Surgery: Yes (ACCESS FOR DIALYSIS) - ANESTHESIA Hx Anesthesia: Yes Hx Anesthesia Reactions: No Hx Malignant Hyperthermia: No Meds Allergies/Adverse Reactions: Allergies Allergy/AdvReac Type Severity Reaction Status Date / Time Penicillins Allergy Verified 06/30/18 10:02 tazobactam [From Zosyn] Allergy Verified 06/30/18 10:02 piperacillin AdvReac ITCHING, Verified 06/30/18 10:02 SHORTNESS OF BREATH PET DANDER Allergy Severe CONGESTION Uncoded 06/30/18 10:02 - Medications Medications: Current Medications Albumin Human (Albumin Human 25% (12.5 Gm/50 Ml)) 12.5 gm IV Q2H JOSSIE Stop: 07/02/18 01:01 Last Admin: 07/01/18 21:13 Dose: 12.5 gm Dextrose (Dextrose 50% Inj) 0 ml IV STAT PRN; Protocol PRN Reason: Hypoglycemia Protocol Last Admin: 07/01/18 20:51 Dose: 50 ml Dextrose (Glutose 15) 0 gm PO ONCE PRN; Protocol PRN Reason: Hypoglycemia Protocol Glucagon (Glucagen Diagnostic Kit) 0 mg IM STAT PRN; Protocol PRN Reason: Hypoglycemia Protocol Heparin Sodium (Porcine) (Heparin) 5,000 units SC Q12 JOSSIE Last Admin: 07/01/18 21:26 Dose: 5,000 units Vancomycin HCl 1 gm/ Sodium (Chloride) 200 mls @ 133.333 mls/hr IVPB TTS JOSSIE PRN Reason: Protocol Meropenem 500 mg/ Sodium (Chloride) 100 mls @ 100 mls/hr IVPB Q12H JOSSIE PRN Reason: Protocol Last Admin: 07/01/18 11:36 Dose: 100 mls/hr Diltiazem HCl 125 mg/ Dextrose 125 mls @ 5 mls/hr IV .Q24H JOSSIE; 5 MG/HR PRN Reason: Protocol Last Admin: 07/01/18 16:22 Dose: 5 mg/hr, 5 mls/hr Dextrose (Dextrose 5% In Water 1000 Ml) 1,000 mls @ 0 mls/hr IV .Q0M PRN; Protocol; Per Protocol PRN Reason: Hypoglycemia Protocol Dextrose/Sodium Chloride (Dextrose 5%/0.9% Ns 1000 Ml) 1,000 mls @ 250 mls/hr IV .Q4H ONE Stop: 07/02/18 01:14 Last Admin: 07/01/18 21:14 Dose: 250 mls/hr Insulin Human Regular (Novolin R) 0 unit SC ACHS JOSSIE PRN Reason: Protocol Last Admin: 07/01/18 21:24 Dose: Not Given Midodrine (Proamatine) 5 mg PO TID JOSSIE Tramadol HCl (Ultram) 50 mg PO Q6H PRN PRN Reason: Pain, severe (8-10) Last Admin: 07/01/18 21:28 Dose: 50 mg Results - Vital Signs Recent Vital Signs: Last Vital Signs Temp 97.6 F 07/01/18 16:00 Pulse 99 H 07/01/18 20:00 Resp 29 H 07/01/18 20:00 BP 101/65 07/01/18 20:00 Pulse Ox 100 07/01/18 20:00 - Labs Result Diagrams: 07/01/18 09:32 07/01/18 13:18 Labs: Laboratory Results - last 24 hr 07/01/18 07/01/18 07/01/18 07:11 07:14 07:49 WBC RBC Hgb Hct MCV MCH MCHC RDW Plt Count MPV Neut % (Auto) Lymph % (Auto) [place] % (Auto) Eos % (Auto) Baso % (Auto) Neut # (Auto) Lymph # (Auto) [place] # (Auto) Eos # (Auto) Baso # (Auto) Puncture Site pCO2 pO2 HCO3 ABG pH ABG Total CO2 ABG O2 Saturation ABG Base Excess Shankar Test ABG Potassium Glucose Lactate Liter Flow Sodium Potassium Chloride Carbon Dioxide Anion Gap BUN Creatinine Est GFR ( Amer) Est GFR (Non-Af Amer) POC Glucose (mg/dL) 59 L 66 60 L Random Glucose Calcium Phosphorus Magnesium Total Bilirubin AST ALT Alkaline Phosphatase Total Creatine Kinase CK-MB (Mass) Troponin I Total Protein Albumin Globulin Albumin/Globulin Ratio Arterial Blood Potassium 07/01/18 07/01/18 07/01/18 07:51 08:05 08:06 WBC RBC Hgb Hct MCV MCH MCHC RDW Plt Count MPV Neut % (Auto) Lymph % (Auto) [place] % (Auto) Eos % (Auto) Baso % (Auto) Neut # (Auto) Lymph # (Auto) [place] # (Auto) Eos # (Auto) Baso # (Auto) Puncture Site pCO2 pO2 HCO3 ABG pH ABG Total CO2 ABG O2 Saturation ABG Base Excess Shankar Test ABG Potassium Glucose Lactate Liter Flow Sodium Potassium Chloride Carbon Dioxide Anion Gap BUN Creatinine Est GFR ( Amer) Est GFR (Non-Af Amer) POC Glucose (mg/dL) 54 L 68 72 Random Glucose Calcium Phosphorus Magnesium Total Bilirubin AST ALT Alkaline Phosphatase Total Creatine Kinase CK-MB (Mass) Troponin I Total Protein Albumin Globulin Albumin/Globulin Ratio Arterial Blood Potassium 07/01/18 07/01/18 07/01/18 09:32 09:32 11:41 WBC 7.8 RBC 3.34 L Hgb 8.0 L Hct 25.6 L MCV 76.9 L MCH 24.0 L MCHC 31.3 L RDW 19.9 H Plt Count 328 MPV 9.1 Neut % (Auto) 60.1 Lymph % (Auto) 23.1 [place] % (Auto) 15.2 H Eos % (Auto) 0.2 Baso % (Auto) 1.4 Neut # (Auto) 4.7 Lymph # (Auto) 1.8 [place] # (Auto) 1.2 H Eos # (Auto) 0.0 Baso # (Auto) 0.1 Puncture Site pCO2 pO2 HCO3 ABG pH ABG Total CO2 ABG O2 Saturation ABG Base Excess Shankar Test ABG Potassium Glucose Lactate Liter Flow Sodium Potassium Chloride Carbon Dioxide Anion Gap BUN Creatinine Est GFR ( Amer) Est GFR (Non-Af Amer) POC Glucose (mg/dL) 69 Random Glucose Calcium Phosphorus Magnesium Total Bilirubin AST ALT Alkaline Phosphatase Total Creatine Kinase 45 L CK-MB (Mass) 0.38 Troponin I 0.0380 Total Protein Albumin Globulin Albumin/Globulin Ratio Arterial Blood Potassium 07/01/18 07/01/18 07/01/18 11:43 12:29 12:30 WBC RBC Hgb Hct MCV MCH MCHC RDW Plt Count MPV Neut % (Auto) Lymph % (Auto) [place] % (Auto) Eos % (Auto) Baso % (Auto) Neut # (Auto) Lymph # (Auto) [place] # (Auto) Eos # (Auto) Baso # (Auto) Puncture Site pCO2 pO2 HCO3 ABG pH ABG Total CO2 ABG O2 Saturation ABG Base Excess Shankar Test ABG Potassium Glucose Lactate Liter Flow Sodium Potassium Chloride Carbon Dioxide Anion Gap BUN Creatinine Est GFR ( Amer) Est GFR (Non-Af Amer) POC Glucose (mg/dL) 69 61 L 66 Random Glucose Calcium Phosphorus Magnesium Total Bilirubin AST ALT Alkaline Phosphatase Total Creatine Kinase CK-MB (Mass) Troponin I Total Protein Albumin Globulin Albumin/Globulin Ratio Arterial Blood Potassium 07/01/18 07/01/18 07/01/18 13:12 13:18 13:41 WBC RBC Hgb Hct MCV MCH MCHC RDW Plt Count MPV Neut % (Auto) Lymph % (Auto) [place] % (Auto) Eos % (Auto) Baso % (Auto) Neut # (Auto) Lymph # (Auto) [place] # (Auto) Eos # (Auto) Baso # (Auto) Puncture Site Rra pCO2 38 pO2 139 H HCO3 21.2 ABG pH 7.34 L ABG Total CO2 21.7 L ABG O2 Saturation 99.6 H ABG Base Excess -4.8 L Shankar Test Pos ABG Potassium 3.7 Glucose 167 H Lactate 3.6 H Liter Flow 4.0 Sodium 134 140.0 Potassium 5.3 H Chloride 93 L 114.0 H Carbon Dioxide 20 L Anion Gap 26 H BUN 31 H Creatinine 6.2 H Est GFR ( Amer) 12 Est GFR (Non-Af Amer) 10 POC Glucose (mg/dL) 139 H Random Glucose 122 H Calcium 8.8 Phosphorus 7.2 H Magnesium 1.9 Total Bilirubin 0.7 AST 90 H D ALT 25 Alkaline Phosphatase 184 H D Total Creatine Kinase CK-MB (Mass) Troponin I Total Protein 7.5 Albumin 3.3 L Globulin 4.2 H Albumin/Globulin Ratio 0.8 L Arterial Blood Potassium 3.7 07/01/18 07/01/18 07/01/18 15:42 16:09 20:12 WBC RBC Hgb Hct MCV MCH MCHC RDW Plt Count MPV Neut % (Auto) Lymph % (Auto) [place] % (Auto) Eos % (Auto) Baso % (Auto) Neut # (Auto) Lymph # (Auto) [place] # (Auto) Eos # (Auto) Baso # (Auto) Puncture Site pCO2 pO2 HCO3 ABG pH ABG Total CO2 ABG O2 Saturation ABG Base Excess Shankar Test ABG Potassium Glucose Lactate Liter Flow Sodium Potassium Chloride Carbon Dioxide Anion Gap BUN Creatinine Est GFR ( Amer) Est GFR (Non-Af Amer) POC Glucose (mg/dL) 71 59 L Random Glucose Calcium Phosphorus Magnesium Total Bilirubin AST ALT Alkaline Phosphatase Total Creatine Kinase 21 L CK-MB (Mass) 0.44 Troponin I 0.0400 Total Protein Albumin Globulin Albumin/Globulin Ratio Arterial Blood Potassium 07/01/18 07/01/18 07/01/18 20:13 20:46 20:48 WBC RBC Hgb Hct MCV MCH MCHC RDW Plt Count MPV Neut % (Auto) Lymph % (Auto) [place] % (Auto) Eos % (Auto) Baso % (Auto) Neut # (Auto) Lymph # (Auto) [place] # (Auto) Eos # (Auto) Baso # (Auto) Puncture Site pCO2 pO2 HCO3 ABG pH ABG Total CO2 ABG O2 Saturation ABG Base Excess Shankar Test ABG Potassium Glucose Lactate Liter Flow Sodium Potassium Chloride Carbon Dioxide Anion Gap BUN Creatinine Est GFR ( Amer) Est GFR (Non-Af Amer) POC Glucose (mg/dL) 59 L 49 L 52 L Random Glucose Calcium Phosphorus Magnesium Total Bilirubin AST ALT Alkaline Phosphatase Total Creatine Kinase CK-MB (Mass) Troponin I Total Protein Albumin Globulin Albumin/Globulin Ratio Arterial Blood Potassium 07/01/18 21:18 WBC RBC Hgb Hct MCV MCH MCHC RDW Plt Count MPV Neut % (Auto) Lymph % (Auto) [place] % (Auto) Eos % (Auto) Baso % (Auto) Neut # (Auto) Lymph # (Auto) [place] # (Auto) Eos # (Auto) Baso # (Auto) Puncture Site pCO2 pO2 HCO3 ABG pH ABG Total CO2 ABG O2 Saturation ABG Base Excess Shankar Test ABG Potassium Glucose Lactate Liter Flow Sodium Potassium Chloride Carbon Dioxide Anion Gap BUN Creatinine Est GFR ( Amer) Est GFR (Non-Af Amer) POC Glucose (mg/dL) 104 Random Glucose Calcium Phosphorus Magnesium Total Bilirubin AST ALT Alkaline Phosphatase Total Creatine Kinase CK-MB (Mass) Troponin I Total Protein Albumin Globulin Albumin/Globulin Ratio Arterial Blood Potassium
[2018-07-01] MEDS ORDERED: Sodium Chloride 0.9% 500 ML IV ONE ×2 (22:30→23:00)
[2018-07-01] MEDS ORDERED: Albuterol 0.083% Inhal Sol (2.5 mg/3 mL) UD ONE (23:31)
[2018-07-01] MEDS: Phenylephrine 30 MG in Sodium Chloride 0.9% 250 ML IV PRN (23:36)
[2018-07-01 23:49] LABS: ABG ALLEN TEST POS; ARTERIAL BLOOD GAS HCO3 12.2 mmol/L (21-28); ARTERIAL BLOOD GAS O2 SAT 96.5 % (95-98); ARTERIAL BLOOD GAS PCO2 35 mm/Hg (35-45); ARTERIAL BLOOD GAS PH 7.14 (7.35-7.45); ARTERIAL BLOOD GAS PO2 88 mm/Hg (80-100)
[2018-07-02] MEDS ORDERED: Etomidate 20 mg/10ml Inj IV ONE (00:20)
[2018-07-02] MEDS: Dexmedetomidine Hydrochloride 200 MCG in Sodium Chloride 0.9% 48 ML IV PRN ×2 (00:41→01:27)
[2018-07-02] MEDS: Meropenem 500 MG in Sodium Chloride 0.9% 100 ML IVPB SCH ×2 (01:02→13:00)
[2018-07-02] MEDS: Albumin Human 25% (12.5 gm/50 ml) IV SCH (01:19)
--- NOTE | 2018-07-02 01:27 | CP.PCM.PN ---
Subjective - Date & Time of Evaluation Date of Evaluation: 07/02/18 Time of Evaluation: 01:15 - Subjective Subjective: Patient had been hypotensive, sob, with maintained spo2 100% on 2lit nc, HR in 80's but pvc, with weak and stronger pulse, so effective pulse in 40-50/min, ABG confirmed AG acidosis due to lactic acidosis and ph7.1 despite patient's effort. During this time patient was also exhausted, and could not communicate. Patient was intubated by me at this time, see note. He has received albumin every 2 hs, 1 lit bolus fluid was given and 500ml was still running. Phenylephrine was started and was running at 30ml/hr MAP maintained around above 65, sedation post vent started with precedex also 2 mg of ativan given. Patient was in shock with lactic acidosis, form unclear etiology DD of sepsis, bleeding, PE, bowell ishemia. To sought out form DD all labs work sent, treated on pathway of code sepsis, patient already on meropenium. Objective - Vital Signs/Intake and Output Vital Signs (last 24 hours): Temp Pulse Resp BP Pulse Ox 97.6 F 82 24 77/46 L 97 07/01/18 16:00 07/01/18 23:36 07/01/18 23:36 07/01/18 23:36 07/01/18 23:36 Intake and Output: 07/01/18 07/02/18 18:59 06:59 Intake Total 660 110 Balance 660 110 - Medications Medications: Current Medications Dextrose (Dextrose 50% Inj) 0 ml IV STAT PRN; Protocol PRN Reason: Hypoglycemia Protocol Last Admin: 07/01/18 20:51 Dose: 50 ml Dextrose (Glutose 15) 0 gm PO ONCE PRN; Protocol PRN Reason: Hypoglycemia Protocol Glucagon (Glucagen Diagnostic Kit) 0 mg IM STAT PRN; Protocol PRN Reason: Hypoglycemia Protocol Heparin Sodium (Porcine) (Heparin) 5,000 units SC Q12 [facility] Last Admin: 07/01/18 21:26 Dose: 5,000 units Vancomycin HCl 1 gm/ Sodium (Chloride) 200 mls @ 133.333 mls/hr IVPB TTS JOSSIE PRN Reason: Protocol Meropenem 500 mg/ Sodium (Chloride) 100 mls @ 100 mls/hr IVPB Q12H JOSSIE PRN Reason: Protocol Last Admin: 07/02/18 01:02 Dose: 100 mls/hr Diltiazem HCl 125 mg/ Dextrose 125 mls @ 5 mls/hr IV .Q24H JOSSIE; 5 MG/HR PRN Reason: Protocol Last Admin: 07/01/18 16:22 Dose: 5 mg/hr, 5 mls/hr Dextrose (Dextrose 5% In Water 1000 Ml) 1,000 mls @ 0 mls/hr IV .Q0M PRN; Protocol; Per Protocol PRN Reason: Hypoglycemia Protocol Phenylephrine HCl 30 mg/ (Sodium Chloride) 253 mls @ 10.12 mls/hr IV .Q24H PRN ; Protocol; 20 MCG/MIN PRN Reason: TITRATE PER MD ORDER Last Admin: 07/01/18 23:36 Dose: 20 mcg/min, 10.12 mls/hr Dexmedetomidine HCl 200 mcg/ (Sodium Chloride) 50 mls @ 9.07 mls/hr IV TITR PRN ; Protocol; 0.2 MCG/KG/HR PRN Reason: Agitation Last Admin: 07/02/18 00:41 Dose: 0.2 mcg/kg/hr, 9.07 mls/hr Insulin Human Regular (Novolin R) 0 unit SC ACHS JOSSIE PRN Reason: Protocol Last Admin: 07/01/18 21:24 Dose: Not Given Midodrine (Proamatine) 5 mg PO TID JOSSIE Tramadol HCl (Ultram) 50 mg PO Q6H PRN PRN Reason: Pain, severe (8-10) Last Admin: 07/01/18 21:28 Dose: 50 mg - Labs Labs: 07/01/18 09:32 07/01/18 13:18
--- NOTE | 2018-07-02 01:31 | PCM.PROC ---
Procedures Attestation:: I certify that I have explained the specified Operation(s) or Procedure(s), risks, benefits and reasonable alternatives to the Patient and/or other person responsible. The opportunity was given to ask questions and all questions answered - Intubation Time Out Performed: Yes Sedative: Etomidate Laryngoscope: Suzette (4) Assist Device Used: Other (stylet) ET Tube Size: 8.0 ET Tube Uncuffed: No ET Tube Secured at Depth: 25cm ET Tube Secured Locarion: Lips ET Tube Placement Confirmation: Visualized Passing Through Cords, Breath Sounds Equal Bilaterally, No Breath Sounds Over Epigastrum, Confirmation w/Capnometry Patient Tolerated Procedure: Well (CXR, showing ET tip 4.5 cm above madi, OG tip in the stomach, b/l pulmonary congestion noticed. Bolus IV stopped. ), No Complications
--- NOTE | 2018-07-02 01:39 | PCM.SEPTIC ---
Sepsis Progress Note - Reassessment Type Date of Evaluation: 07/02/18 Time of Evaluation: 01:31 Reassessment Type: Non-invasive reassessment - Non Invasive Reassessment Were the most recent vital sign reviewed: Yes Vital Sign (Latest): Temp Pulse Resp BP Pulse Ox 97.6 F 82 24 77/46 L 97 07/01/18 16:00 07/01/18 23:36 07/01/18 23:36 07/01/18 23:36 07/01/18 23:36 Cardiovascular: Yes: Regular Rate, Rhythm (aflutter 3:1) Respiratory: Yes: Rales Capillary Refill: Delayed Pulses: Normal Radial, Decreased Dorsalis Pedis, Decreased Posterior Tibialis Skin: Dry - Invasive Reassessment (complete 2 of 4) Was a Central Venous Pressure Measurement obtained within 6 Hours after the presentation of septic shock: No Was a central venous oxygen measurement obtained within 6 hours after the presentation of septic shock: No Was a bedside cardiovascular ultrasound performed within 6 hours after the presentation of septic shock: No Was a passive leg raise performed or was a fluid challenge performed within 6 hrs of the initial fluid bolus: No Passive Leg Raise Result: Not Applicable Fluid Challenge performed: Yes Medical Decision Making Medical Decision Making: CXR showed congestion patient EF is about 40%, bolus fluid stopped post cxr. pressors will be increased to maintain map >65
[2018-07-02 02:00] LABS: VENOUS BLOOD GAS BASE EXCESS -16.1 mmol/L (0.0-2.0); VENOUS BLOOD GAS PCO2 46 mmHg (40-60); VENOUS BLOOD GAS PO2 23 mm/Hg (30-55); VENOUS BLOOD PH 7.08 (7.32-7.43)
[2018-07-02 02:09] LABS: BASO # 0.1 K/uL (0.0-0.2); BASO % 0.7 % (0.0-2.0); EOS % 0.1 % (0.0-4.0); HEMOGLOBIN 7.4 g/dL (12.0-18.0); LYMPH # 1.1 K/uL (1.0-4.3); LYMPH % 13.6 % (20.0-40.0); MEAN CELL VOLUME 80.4 fL (80.0-94.0); MEAN CORPUSCULAR HEMOGLOBIN 23.9 pg (27.0-31.0); MEAN CORPUSCULAR HGB CONC 29.7 g/dL (33.0-37.0); MONO # 1.3 K/uL (0.0-0.8); MONO % 15.7 % (0.0-10.0); NEUT # 5.7 K/uL (1.8-7.0); NEUT % 69.9 % (50.0-75.0); NRBC % 4.3 % (0.0-2.0); RBC 3.12 Mil/uL (4.40-5.90); RED CELL DISTRIBUTION WIDTH 19.7 % (11.5-14.5); WHITE BLOOD COUNT 8.2 K/uL (4.8-10.8)
[2018-07-02 02:18] LABS: INR 2.4; PROTHROMBIN TIME 26.6 SECONDS (9.7-12.2)
[2018-07-02 02:23] LABS: ALBUMIN 3.8 g/dL (3.5-5.0); CALCIUM 8.8 mg/dl (8.6-10.4)
[2018-07-02 02:32] LABS: TROPONIN I 0.044 ng/mL (0.00-0.120)
[2018-07-02] MEDS: Dexmedetomidine Hydrochloride 400 MCG in Sodium Chloride 0.9% 96 ML IV PRN ×6 (03:00→16:35)
[2018-07-02] MEDS: Phenylephrine 30 MG in Sodium Chloride 0.9% 250 ML IV PRN ×4 (05:54→17:05)
[2018-07-02 06:01] LABS: ABG ALLEN TEST POS; ARTERIAL BLOOD GAS HCO3 10.8 mmol/L (21-28); ARTERIAL BLOOD GAS O2 SAT 99.8 % (95-98); ARTERIAL BLOOD GAS PCO2 26 mm/Hg (35-45); ARTERIAL BLOOD GAS PH 7.15 (7.35-7.45); ARTERIAL BLOOD GAS PO2 165 mm/Hg (80-100); ARTERIAL BLOOD GAS TCO2 9.9 mmol/L (22-28)
[2018-07-02] MEDS: Dextrose 50% SYRINGE Inj (50 ml) IV PRN ×9 (06:11→16:26)
[2018-07-02] MEDS ORDERED: Dextrose 50% SYRINGE Inj (50 ml) ONE ×4 (06:13→11:52)
[2018-07-02] MEDS ORDERED: Dextrose 50% SYRINGE Inj (50 ml) IV STA (06:18)
[2018-07-02] MEDS ORDERED: Dexamethasone 4 mg/1 ml IV ONE (06:37)
--- NOTE | 2018-07-02 07:29 | CON ---
Copied To: Alec Boucher MD Attending MD: Alec Boucher MD DATE: 07/01/2018 HISTORY OF PRESENT ILLNESS: Mr. Carl Oliva is a 52-year-old male. He has a history of morbid obesity, chronic lymphedema in lower extremities. He was recently here. He has end-stage renal disease, diabetes, hypertension, COPD, and he is on dialysis. He recently had Acinetobacter bacteremia along with, and we changed his catheter on the right side. Dr. Chiu changed the hemodialysis catheter. He also had small-bowel obstruction, which he was treated conservatively, and he got better and he was sent with to complete his course at the intermediate. He went there. He now comes back. He came back with dizziness and chest pain, and he was found to be in atrial fibrillation. He was on Cardizem drip, but his blood pressure dropped. He was in the intermediate according to the chart, and he got into an argument with an aide and after that, he started to complain of chest pain radiating to his left arm and to the wrist; however here, he has been tachycardic in 130s and 140s. He was also noted to be hypoglycemic, and his blood pressure was low. They checked his vitals. They gave him something to eat, then he went to the dialysis. In the dialysis also, his blood pressure was low, and he was sent here with dizziness, hypotension, and tachycardia. He has been in ICU. I am asked to evaluate him for IV antibiotics. There is no evidence of any fever. He says there is a small back wound, which is healing at this time. He denies any pain in the lower extremities or any open wounds at this time. He did complete the medication for Acinetobacter. I do not know he had a fistula placed or not with the cultures were negative. When he went from here, he had a PICC line. I forgot to see the PICC line today, but I will find out from them on my next evaluation as I am dictating it from my office at this time. He was admitted with dizziness, chest pain going to left arm. He was in hypotension. He was awake. He was able to give me some history, but he falls off to sleep. I think, he also suffers from sleep apnea as from before, but at this time, he was hypotensive. He does have morbid obesity; chronic lymphedema of lower extremities; end-stage renal disease, on dialysis; diabetes mellitus; hypertension; and COPD. ALLERGIES: HE IS ALLERGIC TO PENICILLIN, WHICH GIVES HIM RASH; ONE TIME HE HAD RASH WITH ZOSYN , BUT HE HAS TOLERATED MERREM IN THE LAST ADMISSION. SOCIAL HISTORY: Significant for smoking half pack per day. No EtOH abuse. REVIEW OF SYSTEMS: He recently had Acinetobacter bacteremia, cultures were then negative, and he completed the course. PAST MEDICAL HISTORY: Significant for multiple admissions here with cellulitis of the lower extremities. He is current smoker, some days he smokes. He has hypertension, peripheral edema. He also has COPD, asthma, bronchitis. He may have sleep apnea, we are not sure. Neurologically, no neurological disorder. He has chronic renal failure. He has diabetes type 2 and history of anemia. He has had cellulitis with lymphangitis multiple times. GI, he has gastroesophageal reflux disease. He has a history of surgery, he had an access placed in his left arm. MEDICATIONS: He was started on Zosyn and albumin yesterday. Now, his medications include, he is on albumin, dextrose D50, he got this morning. He is on diltiazem. He is on heparin subcu. He is on Ultram and vancomycin. PHYSICAL EXAMINATION: VITAL SIGNS: T-max is 97.6, heart rate of 130, blood pressure 92/51, respirations are 26. He is on oxygen. HEENT: Head is atraumatic, normocephalic. NECK: Supple. LUNGS: Clear. No rhonchi. No wheezing. Decreased breath sounds bilaterally. HEART: S1, S2. Tachycardic. ABDOMEN: Soft, nontender. No guarding, no rigidity present at this time. EXTREMITIES: Remain with severe obesity and severe bilateral lymphangitis, elephantiasis. LABORATORY DATA: Labs are noted. Labs show white count is 7.8, hemoglobin is 8, hematocrit is 25.6, platelet count is 328. Sodium 134, potassium 5.3, 93, CO2 is 20, BUN is 31, creatinine 6.2. His potassium is 5.3. His glucose was 54 this morning, now it is 104. They had this external pacemaker on his chest wall when I saw him. Now, blood culture x2 are negative. He also had a chest x-ray, and the chest x-ray does not show any infiltrate, interval significant improvement in aeration without significant pulmonary congestion or consolidation. ASSESSMENT AND PLAN: So at this time, I empirically placed him on vancomycin and meropenem. I have left him on these antibiotics till the septic workup comes back. He has acute atrial fibrillation and rapid heart rate and hypotension. Cardiac enzymes were done, which are 0.038 and 0.04, so cardiac enzymes are negative. We need to monitor his atrial fibrillation. He is not complaining of any abdominal pain, so we will follow and continue antibiotics for now. I also want to know if he still has the peripherally inserted central catheter line or not which may make difference if it is infected or not. Alec Boucher MD
[2018-07-02] MEDS: (Novolin R) Insulin Human Regular 100 units/ml vial SC SCH ×2 (07:39→12:41)
[2018-07-02] MEDS ORDERED: Norepinephrine 8 MG in Dextrose 5% In Water 242 ML IV PRN (09:07)
[2018-07-02 09:20] LABS: ARTERIAL BLOOD GAS HCO3 7.5 mmol/L (21-28); ARTERIAL BLOOD GAS O2 SAT 99.7 % (95-98); ARTERIAL BLOOD GAS PCO2 24 mm/Hg (35-45); ARTERIAL BLOOD GAS PH 7.05 (7.35-7.45); ARTERIAL BLOOD GAS PO2 150 mm/Hg (80-100); ARTERIAL BLOOD GAS TCO2 7.3 mmol/L (22-28)
--- NOTE | 2018-07-02 09:22 | CP.PCM.PN ---
Subjective - Date & Time of Evaluation Date of Evaluation: 07/02/18 Time of Evaluation: 09:16 - Subjective Subjective: Events noted. Developed respiratory failure and needed intubation last PM. BP supported by phenylephrine, better now CXR developed fluid overload, patient awake. More acidemic, will require dialysis this AM. Hg decreased to 7.4- would order 2 units prbcs with dialysis this AM Levophed to be started for further BP support with HD Will need change of dialysis cath, esprecially with h/o recent bacteremia, sepsis picture now. Objective - Vital Signs/Intake and Output Vital Signs (last 24 hours): Temp Pulse Resp BP Pulse Ox 97.3 F L 65 18 98/55 L 87 L 07/02/18 04:00 07/02/18 07:10 07/02/18 07:10 07/02/18 07:10 07/02/18 07:10 Intake and Output: 07/02/18 07/02/18 06:59 18:59 Intake Total 2446.3 136.0 Balance 2446.3 136.0 - Medications Medications: Current Medications Dextrose (Dextrose 50% Inj) 0 ml IV STAT PRN; Protocol PRN Reason: Hypoglycemia Protocol Last Admin: 07/02/18 06:49 Dose: 50 ml Dextrose (Glutose 15) 0 gm PO ONCE PRN; Protocol PRN Reason: Hypoglycemia Protocol Glucagon (Glucagen Diagnostic Kit) 0 mg IM STAT PRN; Protocol PRN Reason: Hypoglycemia Protocol Heparin Sodium (Porcine) (Heparin) 5,000 units SC Q12 JOSSIE Last Admin: 07/01/18 21:26 Dose: 5,000 units Vancomycin HCl 1 gm/ Sodium (Chloride) 200 mls @ 133.333 mls/hr IVPB TTS JOSSIE PRN Reason: Protocol Meropenem 500 mg/ Sodium (Chloride) 100 mls @ 100 mls/hr IVPB Q12H JOSSIE PRN Reason: Protocol Last Admin: 07/02/18 01:02 Dose: 100 mls/hr Diltiazem HCl 125 mg/ Dextrose 125 mls @ 5 mls/hr IV .Q24H JOSSIE; 5 MG/HR PRN Reason: Protocol Last Titration: 07/01/18 22:15 Dose: 0 mg/hr, 0 mls/hr Dextrose (Dextrose 5% In Water 1000 Ml) 1,000 mls @ 0 mls/hr IV .Q0M PRN; Protocol; Per Protocol PRN Reason: Hypoglycemia Protocol Phenylephrine HCl 30 mg/ (Sodium Chloride) 253 mls @ 10.12 mls/hr IV .Q24H PRN ; Protocol; 20 MCG/MIN PRN Reason: TITRATE PER MD ORDER Last Admin: 07/02/18 05:54 Dose: 100 mcg/min, 50.6 mls/hr Dexmedetomidine HCl 400 mcg/ (Sodium Chloride) 100 mls @ 9.07 mls/hr IV TITR PRN; Protocol; 0.2 MCG/KG/HR PRN Reason: Agitation Last Admin: 07/02/18 05:53 Dose: 1 mcg/kg/hr, 45.35 mls/hr Dextrose (Dextrose 10% In Water) 1,000 mls @ 40 mls/hr IV .Q24H JOSSIE Last Admin: 07/02/18 06:58 Dose: 40 mls/hr Norepinephrine Bitartrate 8 mg (/ Dextrose) 250 mls @ 7.5 mls/hr IV .Q24H PRN; Protocol; 4 MCG/MIN PRN Reason: TITRATE PER MD ORDER Insulin Human Regular (Novolin R) 0 unit SC Q6 JOSSIE PRN Reason: Protocol Last Admin: 07/02/18 07:39 Dose: Not Given Midodrine (Proamatine) 5 mg PO TID JOSSIE Tramadol HCl (Ultram) 50 mg PO Q6H PRN PRN Reason: Pain, severe (8-10) Last Admin: 07/01/18 21:28 Dose: 50 mg - Labs Labs: 07/02/18 02:05 07/02/18 02:05 PT 26.6 SECONDS (9.7-12.2) H 07/02/18 02:05 INR 2.4 07/02/18 02:05 APTT 40 SECONDS (21-34) H 07/02/18 02:05 - Constitutional Appears: In Acute Distress, Chronically Ill - Head Exam Head Exam: ATRAUMATIC, NORMAL INSPECTION - Eye Exam Eye Exam: EOMI, Normal appearance - Neck Exam Neck Exam: Normal Inspection. absent: Tenderness - Respiratory Exam Respiratory Exam: Decreased Breath Sounds, Respiratory Distress - Cardiovascular Exam Cardiovascular Exam: REGULAR RHYTHM, +S1 - GI/Abdominal Exam GI & Abdominal Exam: Distended, Soft. absent: Tenderness - Extremities Exam Extremities Exam: Pedal Edema. absent: Tenderness - Neurological Exam Neurological Exam: Awake - Skin Skin Exam: Dry, Warm Assessment and Plan (1) Hypotension Status: Acute (2) Type 2 diabetes mellitus with diabetic nephropathy Status: Acute (3) ESRD on hemodialysis Status: Chronic (4) Lymphedema of lower extremity Status: Chronic - Assessment and Plan (Free Text) Plan: Dialysis now, try to UF 2000ml IV ABs Blood transfusions 2 units with HD Pressor BP support as needed Can give IV albumin with HD as needed as well Will need change dialysis cath when more stable Probably will need another dialysis in AM
--- NOTE | 2018-07-02 09:26 | RAD ---
Date of service: 07/02/2018 HISTORY: post intubation COMPARISON: Portable chest 06/30/2018. FINDINGS: Endotracheal tube is identified placed with the tip terminating 4.8 cm of the madi. Further, prominent right center venous dialysis catheter is unchanged in position with nasogastric tube identified entering into the abdomen once again. LUNGS: No active pulmonary disease. PLEURA: No significant pleural effusion or pneumothorax appreciable. Trace fluid is seen in the minor fissure. CARDIOVASCULAR: Stable gross cardiomegaly. Borderline pulmonary vascular congestion. OSSEOUS STRUCTURES: No significant abnormalities. VISUALIZED UPPER ABDOMEN: Normal. OTHER FINDINGS: None. IMPRESSION: Gross cardiomegaly with borderline pulmonary vascular congestion. No definitive infiltrates bilateral. Trace fluid minor fissure.
--- NOTE | 2018-07-02 09:28 | CP.PCM.PN ---
Subjective - Date & Time of Evaluation Date of Evaluation: 07/02/18 Time of Evaluation: 09:09 Objective - Vital Signs/Intake and Output Vital Signs (last 24 hours): Temp Pulse Resp BP Pulse Ox 97.3 F L 65 18 98/55 L 87 L 07/02/18 04:00 07/02/18 07:10 07/02/18 07:10 07/02/18 07:10 07/02/18 07:10 Intake and Output: 07/02/18 07/02/18 06:59 18:59 Intake Total 2446.3 136.0 Balance 2446.3 136.0 - Medications Medications: Current Medications Dextrose (Dextrose 50% Inj) 0 ml IV STAT PRN; Protocol PRN Reason: Hypoglycemia Protocol Last Admin: 07/02/18 06:49 Dose: 50 ml Dextrose (Glutose 15) 0 gm PO ONCE PRN; Protocol PRN Reason: Hypoglycemia Protocol Glucagon (Glucagen Diagnostic Kit) 0 mg IM STAT PRN; Protocol PRN Reason: Hypoglycemia Protocol Heparin Sodium (Porcine) (Heparin) 5,000 units SC Q12 JOSSIE Last Admin: 07/01/18 21:26 Dose: 5,000 units Vancomycin HCl 1 gm/ Sodium (Chloride) 200 mls @ 133.333 mls/hr IVPB TTS JOSSIE PRN Reason: Protocol Meropenem 500 mg/ Sodium (Chloride) 100 mls @ 100 mls/hr IVPB Q12H JOSSIE PRN Reason: Protocol Last Admin: 07/02/18 01:02 Dose: 100 mls/hr Diltiazem HCl 125 mg/ Dextrose 125 mls @ 5 mls/hr IV .Q24H JOSSIE; 5 MG/HR PRN Reason: Protocol Last Titration: 07/01/18 22:15 Dose: 0 mg/hr, 0 mls/hr Dextrose (Dextrose 5% In Water 1000 Ml) 1,000 mls @ 0 mls/hr IV .Q0M PRN; Protocol; Per Protocol PRN Reason: Hypoglycemia Protocol Phenylephrine HCl 30 mg/ (Sodium Chloride) 253 mls @ 10.12 mls/hr IV .Q24H PRN ; Protocol; 20 MCG/MIN PRN Reason: TITRATE PER MD ORDER Last Admin: 07/02/18 05:54 Dose: 100 mcg/min, 50.6 mls/hr Dexmedetomidine HCl 400 mcg/ (Sodium Chloride) 100 mls @ 9.07 mls/hr IV TITR PRN; Protocol; 0.2 MCG/KG/HR PRN Reason: Agitation Last Admin: 07/02/18 05:53 Dose: 1 mcg/kg/hr, 45.35 mls/hr Dextrose (Dextrose 10% In Water) 1,000 mls @ 40 mls/hr IV .Q24H JOSSIE Last Admin: 07/02/18 06:58 Dose: 40 mls/hr Norepinephrine Bitartrate 8 mg (/ Dextrose) 258 mls @ 7.74 mls/hr IV .Q24H PRN ; Protocol; 4 MCG/MIN PRN Reason: TITRATE PER MD ORDER Insulin Human Regular (Novolin R) 0 unit SC Q6 JOSSIE PRN Reason: Protocol Last Admin: 07/02/18 07:39 Dose: Not Given Midodrine (Proamatine) 5 mg PO TID JOSSIE Tramadol HCl (Ultram) 50 mg PO Q6H PRN PRN Reason: Pain, severe (8-10) Last Admin: 07/01/18 21:28 Dose: 50 mg - Labs Labs: 07/02/18 02:05 07/02/18 02:05 PT 26.6 SECONDS (9.7-12.2) H 07/02/18 02:05 INR 2.4 07/02/18 02:05 APTT 40 SECONDS (21-34) H 07/02/18 02:05
--- NOTE | 2018-07-02 09:55 | RAD ---
Date of service: 07/02/2018 HISTORY: central line insertion COMPARISON: Portable chest 07/02/2018. FINDINGS: Endotracheal and nasogastric tubes do not appear significantly changed. Interval left central venous line is placed by an apparent internal jugular approach with the tip terminating at the superior vena cava. Permanent right central venous dialysis catheter unchanged as well. LUNGS: Hazy opacity seen the right chest which may be technical. No air bronchograms are seen associated with this and this is not felt to represent an infiltrate. Retrocardiac left basilar infiltrate or atelectasis is not excluded. Gross cardiomegaly is reiterated with no significant pulmonary vascular increase evident in the interval. Trace of pleural effusion is not excluded. None is seen the right. No pneumothorax bilaterally. PLEURA: As above. CARDIOVASCULAR: As above. OSSEOUS STRUCTURES: No significant abnormalities. VISUALIZED UPPER ABDOMEN: Normal. OTHER FINDINGS: None. IMPRESSION: Stable cardiomegaly with trace left pleural effusion questioned. Left central venous lines in place as discussed above. Remaining tubes and catheters unchanged. Retrocardiac opacity may reflect left basilar atelectasis or infiltrate.
[2018-07-02] MEDS ORDERED: Vancomycin 1 GM in Sodium Chloride 0.9% 200 ML IVPB SCH (10:00)
[2018-07-02] MEDS ORDERED: Albumin Human 25% (12.5 gm/50 ml) IV ONE (10:12)
[2018-07-02] MEDS ORDERED: MethylPREDNISolone 40 mg Vial IVP STA (12:18)
--- NOTE | 2018-07-02 13:01 | CP.PCM.PN ---
Subjective - Date & Time of Evaluation Date of Evaluation: 07/02/18 Time of Evaluation: 01:00 - Subjective Subjective: dictated Objective - Vital Signs/Intake and Output Vital Signs (last 24 hours): Temp Pulse Resp BP Pulse Ox 98.6 F 133 H 22 82/51 L 95 07/02/18 12:39 07/02/18 12:39 07/02/18 12:39 07/02/18 12:55 07/02/18 10:44 Intake and Output: 07/02/18 07/02/18 06:59 18:59 Intake Total 2446.3 934.0 Balance 2446.3 934.0 - Medications Medications: Current Medications Dextrose (Glutose 15) 0 gm PO ONCE PRN; Protocol PRN Reason: Hypoglycemia Protocol Dextrose (Dextrose 50% Inj) 0 ml IV PRN PRN; Protocol PRN Reason: Hypoglycemia Protocol Last Admin: 07/02/18 12:15 Dose: 50 ml Glucagon (Glucagen Diagnostic Kit) 0 mg IM STAT PRN; Protocol PRN Reason: Hypoglycemia Protocol Heparin Sodium (Porcine) (Heparin) 5,000 units SC Q12 JOSSIE Last Admin: 07/02/18 10:47 Dose: 5,000 units Vancomycin HCl 1 gm/ Sodium (Chloride) 200 mls @ 133.333 mls/hr IVPB TTS JOSSIE PRN Reason: Protocol Last Admin: 07/02/18 10:45 Dose: 133.333 mls/hr Meropenem 500 mg/ Sodium (Chloride) 100 mls @ 100 mls/hr IVPB Q12H JOSSIE PRN Reason: Protocol Last Admin: 07/02/18 01:02 Dose: 100 mls/hr Diltiazem HCl 125 mg/ Dextrose 125 mls @ 5 mls/hr IV .Q24H JOSSIE; 5 MG/HR PRN Reason: Protocol Last Titration: 07/01/18 22:15 Dose: 0 mg/hr, 0 mls/hr Dextrose (Dextrose 5% In Water 1000 Ml) 1,000 mls @ 0 mls/hr IV .Q0M PRN; Protocol; Per Protocol PRN Reason: Hypoglycemia Protocol Phenylephrine HCl 30 mg/ (Sodium Chloride) 253 mls @ 10.12 mls/hr IV .Q24H PRN ; Protocol; 20 MCG/MIN PRN Reason: TITRATE PER MD ORDER Last Admin: 07/02/18 10:44 Dose: 160 mcg/min, 80.96 mls/hr Dexmedetomidine HCl 400 mcg/ (Sodium Chloride) 100 mls @ 9.07 mls/hr IV TITR PRN; Protocol; 0.2 MCG/KG/HR PRN Reason: Agitation Last Admin: 07/02/18 11:25 Dose: 1 mcg/kg/hr, 45.35 mls/hr Norepinephrine Bitartrate 8 mg (/ Dextrose) 250 mls @ 7.5 mls/hr IV .Q24H PRN; Protocol; 4 MCG/MIN PRN Reason: TITRATE PER MD ORDER Last Admin: 07/02/18 09:49 Dose: 5 mcg/min, 9.37 mls/hr Dextrose (Dextrose 10% In Water) 1,000 mls @ 75 mls/hr IV .[id number] [facility] Last Admin: 07/02/18 12:20 Dose: 75 mls/hr Insulin Human Regular (Novolin R) 0 unit SC Q6 JOSSIE PRN Reason: Protocol Last Admin: 07/02/18 12:41 Dose: Not Given Midodrine (Proamatine) 5 mg PO TID [facility] Last Admin: 07/02/18 09:56 Dose: 5 mg Tramadol HCl (Ultram) 50 mg PO Q6H PRN PRN Reason: Pain, severe (8-10) Last Admin: 07/01/18 21:28 Dose: 50 mg - Labs Labs: 07/02/18 02:05 07/02/18 02:05 PT 26.6 SECONDS (9.7-12.2) H 07/02/18 02:05 INR 2.4 07/02/18 02:05 APTT 40 SECONDS (21-34) H 07/02/18 02:05
[2018-07-02 13:39] VITALS: TEMP 98.4
--- NOTE | 2018-07-02 13:46 | CP.CCUPN ---
CCU Subjective - Physician Review Events Since Last Encounter (Free Text): 07/02/18 13:46 This patient with multiple medical problems. Chronic cellulitis. Chronic leg ulcers. End-stage renal disease on dialysis. Obesity. Obesity hypoventilation. Congestive heart failure. He was admitted to the intensive care unit from the longterm because of the left-sided chest pain. Also worsening hypotension, lightheadedness, symptomatic. Patient was admitted to the ICU because of the hypotension, possible sepsis. He was closely monitored in the ICU, but because mental status slowly got worse. Last night the patient respiratory status was extremely bad, and he started having distress, and evidence of severe acidosis noted. Patient was intubated in the ICU. Difficulty intubation was noted Patient now severely hypoxic. Patient is very hypertension. In the morning patient started on Alvin-Synephrine drip, but does the blood pressure started dropping more and more emergency a line was placed. Emergency left-sided in internal jugular vein TLC was placed. Blood pressure on the low side. Lactic acidosis and severe acidosis noted. Patient underwent emergency hemodialysis again today. Received are 2 units of blood transfusion during that time. I spoke to the infectious diseases. I spoke to the optometry professor. Patient is sometimes responding to deep stability. Agitation present. On full ventilator. He sedated at this time. Overall prognosis very poor. Severe lactic acidosis, underlying intra-abdominal process including ischemic intestine cannot be ruled out. Patient is very unstable to get a CAT scan at this moment. Will continue the hydration. Continue these resuscitation. Antibiotic. Close monitoring. Overall prognosis is very poor. Attempted to reach out the family members. ICU management. Critical Care Time Spent (in minutes): 45 CCU Objective - Vital Signs / Intake & Output Vital Signs (Last 4 hours): Vital Signs Temp Pulse Pulse Resp BP BP Pulse Ox 07/02/18 13:38 98.4 F 69 24 90/55 L 07/02/18 13:25 98.4 F 69 30 H 78/50 L 100 07/02/18 13:09 98.3 F 71 24 74/49 L 07/02/18 13:00 68 16 94 L 07/02/18 12:56 67 19 78/26 L 94 L 07/02/18 12:55 82/51 L 07/02/18 12:39 98.6 F 131 H 16 79/55 L 99 07/02/18 12:25 134 H 20 66/49 L 93/53 L 97 07/02/18 12:24 98.4 F 130 H 24 91/55 L 07/02/18 12:11 114 H 16 96/74 L 100 07/02/18 12:09 98.3 F 111 H 24 92/65 L 07/02/18 12:00 98.4 F 75 16 100 07/02/18 11:55 92/65 L 07/02/18 11:54 98.5 F 66 16 72/41 L 97 07/02/18 11:47 98.6 F 67 24 90/56 L 07/02/18 11:44 98.4 F 69 24 93/56 L 07/02/18 11:42 70 18 102/34 L 93 L 07/02/18 11:25 84/55 L 07/02/18 11:14 98.4 F 65 24 85/49 L 07/02/18 11:10 62 22 128/89 86 L 07/02/18 11:00 65 17 90 L 07/02/18 10:59 98 F 68 20 80/46 L 07/02/18 10:55 80/46 L 07/02/18 10:44 97.4 F L 70 24 92/53 L 95 07/02/18 10:40 85/49 L 07/02/18 10:39 63 22 83 L 07/02/18 10:25 84/49 L 07/02/18 10:17 69 17 69/46 L 07/02/18 10:10 80/48 L 07/02/18 10:09 70 17 68/43 L 07/02/18 10:06 68 30 H 84/50 L 07/02/18 10:00 69 18 07/02/18 09:55 97.7 F 68 68 22 84/50 L 84/50 L 07/02/18 09:49 69 21 82/50 L 98 Intake and Output (Last 8hrs): Intake & Output 07/01/18 07/02/18 07/02/18 22:59 06:59 14:59 Intake Total 405 2151.3 3048.4 Balance 405 2151.3 3048.4 Weight 400 lb 1.38 oz 390 lb 7.018 oz Intake: IV 25 403 453 Intake, IV Amount 380 1748.3 1255.4 Left Distal Port Internal 310 Jugular Left Medial Port Internal 480 Jugular Left Proximal Port 56.4 Internal Jugular Right Dialysis Catheter 344.1 50.6 Right Midline 350 1050 Right Midline #2 50 40 Right Thumb 30 304.2 318.4 Blood Product 1300 Red Blood Cells Cpd As1 325 Lr Unit [id number] Red Blood Cells Cpd As1 325 Lr Unit [id number] Other 40 Red Blood Cells Cpd As1 40 Lr Unit [id number] - Physical Exam Head: Positive for: Atraumatic, Normocephalic Extroacular Muscles: Positive for: EOMI Mouth: Positive for: Moist Mucous Membranes Respiratory/Chest: Positive for: Clear to Auscultation, Decreased Breath Sounds , Retracting. Negative for: Wheezes, Rales Cardiovascular: Positive for: Regular Rate and Rhythm, Normal S1, S2 Abdomen: Positive for: Other (soft). Negative for: Tenderness, Peritoneal Signs , Rebound, Guarding Lower Extremity: Positive for: Other (lymphedema bilateral lower all the way up , chronic venous stasis changes) Skin: Positive for: Warm, Dry Psychiatric: Positive for: Alert, Normal Mood - Medications Active Medications: Active Medications Generic Name Dose Route Start Last Admin Trade Name Freq PRN Reason Stop Dose Admin Dextrose 0 gm 07/01/18 18:25 Glutose 15 PO ONCE PRN Hypoglycemia Protocol Protocol Dextrose 0 ml 07/02/18 11:49 07/02/18 12:15 Dextrose 50% Inj IV 50 ml PRN PRN Administration Hypoglycemia Protocol Protocol Glucagon 0 mg 07/01/18 18:25 Glucagen Diagnostic Kit IM STAT PRN Hypoglycemia Protocol Protocol Heparin Sodium (Porcine) 5,000 units 07/01/18 10:00 07/02/18 10:47 Heparin SC 5,000 units Q12 JOSSIE Administration Vancomycin HCl 1 gm/ Sodium 200 mls @ 133.333 mls/hr 07/02/18 10:00 07/02/18 10:45 Chloride IVPB 133.333 mls/hr TTS JOSSIE Administration Protocol Meropenem 500 mg/ Sodium 100 mls @ 100 mls/hr 07/01/18 00:00 07/02/18 13:00 Chloride IVPB 100 mls/hr Q12H JOSSIE Administration Protocol Dextrose 1,000 mls @ 0 mls/hr 07/01/18 18:25 Dextrose 5% In Water 1000 Ml IV .Q0M PRN Hypoglycemia Protocol Protocol Per Protocol Phenylephrine HCl 30 mg/ 253 mls @ 10.12 mls/hr 07/01/18 23:16 07/02/18 10:44 Sodium Chloride IV 160 mcg/min .Q24H PRN 80.96 mls/hr TITRATE PER MD ORDER Administration Protocol 20 MCG/MIN Dexmedetomidine HCl 400 mcg/ 100 mls @ 9.07 mls/hr 07/02/18 01:30 07/02/18 11 :25 Sodium Chloride IV 1 mcg/kg/hr TITR PRN 45.35 mls/hr Agitation Administration Protocol 0.2 MCG/KG/HR Norepinephrine Bitartrate 8 mg 250 mls @ 7.5 mls/hr 07/02/18 09:07 07/02/18 09:49 / Dextrose IV 5 mcg/min .Q24H PRN 9.37 mls/hr TITRATE PER MD ORDER Administration Protocol 4 MCG/MIN Dextrose 1,000 mls @ 75 mls/hr 07/02/18 12:20 07/02/18 12:20 Dextrose 10% In Water IV 75 mls/hr .[id number] JOSSIE Administration Methylprednisolone 40 mg 07/02/18 14:00 Solu-Medrol IVP Q8 JOSSIE - Patient Studies Lab Studies: Microbiology Studies 06/30/18 11:51 Blood Culture - Preliminary Blood NO GROWTH AFTER 48 HOURS 06/30/18 11:51 Blood Culture - Preliminary Blood NO GROWTH AFTER 48 HOURS Lab Studies 07/02/18 07/02/18 07/02/18 Range/Units Unknown 12:36 12:14 WBC (4.8-10.8) K/uL RBC (4.40-5.90) Mil/uL Hgb (12.0-18.0) g/dL Hct (35.0-51.0) % MCV (80.0-94.0) fL MCH (27.0-31.0) pg MCHC (33.0-37.0) g/dL RDW (11.5-14.5) % Plt Count (130-400) K/uL MPV (7.2-11.7) fL Neut % (Auto) (50.0-75.0) % Lymph % (Auto) (20.0-40.0) % [place] % (Auto) (0.0-10.0) % Eos % (Auto) (0.0-4.0) % Baso % (Auto) (0.0-2.0) % Neut # (Auto) (1.8-7.0) K/uL Lymph # (Auto) (1.0-4.3) K/uL [place] # (Auto) (0.0-0.8) K/uL Eos # (Auto) (0.0-0.7) K/uL Baso # (Auto) (0.0-0.2) K/uL PT (9.7-12.2) SECONDS INR APTT (21-34) SECONDS Puncture Site pCO2 (35-45) mm/Hg pO2 (80-100) mm/Hg HCO3 (21-28) mmol/L ABG pH (7.35-7.45) ABG Total CO2 (22-28) mmol/L ABG O2 Saturation (95-98) % ABG Base Excess (-2.0-3.0) mmol/L Shankar Test ABG Potassium (3.6-5.2) mmol/L VBG pH (7.32-7.43) VBG pCO2 (40-60) mmHg VBG HCO3 mmol/L VBG Total CO2 (22-28) mmol/L VBG O2 Sat (Calc) (40-65) % VBG Base Excess (0.0-2.0) mmol/L VBG Potassium (3.6-5.2) mmol/L A-a O2 Difference mm/Hg Respiratory Index Sodium (132-148) mmol/l Chloride (98-107) mmol/L Glucose (75-110) mg/dl Lactate (0.7-2.1) mmol/L Liter Flow Vent Mode Mechanical Rate FiO2 % Tidal Volume PEEP Crit Value Called To Crit Value Called By Crit Value Read Back Blood Gas Notified Time Potassium (3.6-5.2) mmol/L Carbon Dioxide (22-30) mmol/L Anion Gap (10-20) BUN (9-20) mg/dL Creatinine (0.8-1.5) mg/dL Est GFR ( Amer) Est GFR (Non-Af Amer) POC Glucose (mg/dL) 83 53 L (65-110) mg/dL Random Glucose (75-110) mg/dL Calcium (8.6-10.4) mg/dl Magnesium (1.6-2.3) mg/dL Total Bilirubin (0.2-1.3) mg/dL AST (17-59) U/L ALT (21-72) U/L Alkaline Phosphatase (38-126) U/L Total Creatine Kinase (55-170) U/L CK-MB (Mass) (0.0-3.38) ng/mL Troponin I (0.00-0.120) ng/mL Total Protein (6.3-8.3) g/dL Albumin (3.5-5.0) g/dL Globulin (2.2-3.9) gm/dL Albumin/Globulin Ratio (1.0-2.1) Cortisol AM Sample (4.46-22.7) ug/dL Arterial Blood Potassium (3.6-5.2) mmol/L Venous Blood Potassium (3.6-5.2) mmol/L Blood Type A POSITIVE Antibody Screen Negative 07/02/18 07/02/18 07/02/18 Range/Units 12:13 11:40 11:38 WBC (4.8-10.8) K/uL RBC (4.40-5.90) Mil/uL Hgb (12.0-18.0) g/dL Hct (35.0-51.0) % MCV (80.0-94.0) fL MCH (27.0-31.0) pg MCHC (33.0-37.0) g/dL RDW (11.5-14.5) % Plt Count (130-400) K/uL MPV (7.2-11.7) fL Neut % (Auto) (50.0-75.0) % Lymph % (Auto) (20.0-40.0) % [place] % (Auto) (0.0-10.0) % Eos % (Auto) (0.0-4.0) % Baso % (Auto) (0.0-2.0) % Neut # (Auto) (1.8-7.0) K/uL Lymph # (Auto) (1.0-4.3) K/uL [place] # (Auto) (0.0-0.8) K/uL Eos # (Auto) (0.0-0.7) K/uL Baso # (Auto) (0.0-0.2) K/uL PT (9.7-12.2) SECONDS INR APTT (21-34) SECONDS Puncture Site pCO2 (35-45) mm/Hg pO2 (80-100) mm/Hg HCO3 (21-28) mmol/L ABG pH (7.35-7.45) ABG Total CO2 (22-28) mmol/L ABG O2 Saturation (95-98) % ABG Base Excess (-2.0-3.0) mmol/L Shankar Test ABG Potassium (3.6-5.2) mmol/L VBG pH (7.32-7.43) VBG pCO2 (40-60) mmHg VBG HCO3 mmol/L VBG Total CO2 (22-28) mmol/L VBG O2 Sat (Calc) (40-65) % VBG Base Excess (0.0-2.0) mmol/L VBG Potassium (3.6-5.2) mmol/L A-a O2 Difference mm/Hg Respiratory Index Sodium (132-148) mmol/l Chloride (98-107) mmol/L Glucose (75-110) mg/dl Lactate (0.7-2.1) mmol/L Liter Flow Vent Mode Mechanical Rate FiO2 % Tidal Volume PEEP Crit Value Called To Crit Value Called By Crit Value Read Back Blood Gas Notified Time Potassium (3.6-5.2) mmol/L Carbon Dioxide (22-30) mmol/L Anion Gap (10-20) BUN (9-20) mg/dL Creatinine (0.8-1.5) mg/dL Est GFR ( Amer) Est GFR (Non-Af Amer) POC Glucose (mg/dL) 35 L* < 20 L* < 20 L* (65-110) mg/dL Random Glucose (75-110) mg/dL Calcium (8.6-10.4) mg/dl Magnesium (1.6-2.3) mg/dL Total Bilirubin (0.2-1.3) mg/dL AST (17-59) U/L ALT (21-72) U/L Alkaline Phosphatase (38-126) U/L Total Creatine Kinase (55-170) U/L CK-MB (Mass) (0.0-3.38) ng/mL Troponin I (0.00-0.120) ng/mL Total Protein (6.3-8.3) g/dL Albumin (3.5-5.0) g/dL Globulin (2.2-3.9) gm/dL Albumin/Globulin Ratio (1.0-2.1) Cortisol AM Sample (4.46-22.7) ug/dL Arterial Blood Potassium (3.6-5.2) mmol/L Venous Blood Potassium (3.6-5.2) mmol/L Blood Type Antibody Screen 07/02/18 07/02/18 07/02/18 Range/Units 09:11 08:34 07:18 WBC (4.8-10.8) K/uL RBC (4.40-5.90) Mil/uL Hgb (12.0-18.0) g/dL Hct (35.0-51.0) % MCV (80.0-94.0) fL MCH (27.0-31.0) pg MCHC (33.0-37.0) g/dL RDW (11.5-14.5) % Plt Count (130-400) K/uL MPV (7.2-11.7) fL Neut % (Auto) (50.0-75.0) % Lymph % (Auto) (20.0-40.0) % [place] % (Auto) (0.0-10.0) % Eos % (Auto) (0.0-4.0) % Baso % (Auto) (0.0-2.0) % Neut # (Auto) (1.8-7.0) K/uL Lymph # (Auto) (1.0-4.3) K/uL [place] # (Auto) (0.0-0.8) K/uL Eos # (Auto) (0.0-0.7) K/uL Baso # (Auto) (0.0-0.2) K/uL PT (9.7-12.2) SECONDS INR APTT (21-34) SECONDS Puncture Site Cindy pCO2 24 L (35-45) mm/Hg pO2 150 H (80-100) mm/Hg HCO3 7.5 L* (21-28) mmol/L ABG pH 7.05 L* (7.35-7.45) ABG Total CO2 7.3 L (22-28) mmol/L ABG O2 Saturation 99.7 H (95-98) % ABG Base Excess -22.4 L (-2.0-3.0) mmol/L Shankar Test N/a ABG Potassium 5.3 H (3.6-5.2) mmol/L VBG pH (7.32-7.43) VBG pCO2 (40-60) mmHg VBG HCO3 mmol/L VBG Total CO2 (22-28) mmol/L VBG O2 Sat (Calc) (40-65) % VBG Base Excess (0.0-2.0) mmol/L VBG Potassium (3.6-5.2) mmol/L A-a O2 Difference 248.0 mm/Hg Respiratory Index 1.7 Sodium 134.0 (132-148) mmol/l Chloride 102.0 (98-107) mmol/L Glucose 38 L* D (75-110) mg/dl Lactate 16.2 H* (0.7-2.1) mmol/L Liter Flow Vent Mode Prvc Mechanical Rate 24 FiO2 60.0 % Tidal Volume 500 PEEP 5 Crit Value Called To Dr post Crit Value Called By Rogelio escalera transcribing operator head Crit Value Read Back Y Blood Gas Notified Time 919 Potassium (3.6-5.2) mmol/L Carbon Dioxide (22-30) mmol/L Anion Gap (10-20) BUN (9-20) mg/dL Creatinine (0.8-1.5) mg/dL Est GFR ( Amer) Est GFR (Non-Af Amer) POC Glucose (mg/dL) 72 (65-110) mg/dL Random Glucose (75-110) mg/dL Calcium (8.6-10.4) mg/dl Magnesium (1.6-2.3) mg/dL Total Bilirubin (0.2-1.3) mg/dL AST (17-59) U/L ALT (21-72) U/L Alkaline Phosphatase (38-126) U/L Total Creatine Kinase (55-170) U/L CK-MB (Mass) (0.0-3.38) ng/mL Troponin I (0.00-0.120) ng/mL Total Protein (6.3-8.3) g/dL Albumin (3.5-5.0) g/dL Globulin (2.2-3.9) gm/dL Albumin/Globulin Ratio (1.0-2.1) Cortisol AM Sample 37.1 H (4.46-22.7) ug/dL Arterial Blood Potassium 5.3 H (3.6-5.2) mmol/L Venous Blood Potassium (3.6-5.2) mmol/L Blood Type Antibody Screen 07/02/18 07/02/18 07/02/18 Range/Units 07:16 06:44 06:42 WBC (4.8-10.8) K/uL RBC (4.40-5.90) Mil/uL Hgb (12.0-18.0) g/dL Hct (35.0-51.0) % MCV (80.0-94.0) fL MCH (27.0-31.0) pg MCHC (33.0-37.0) g/dL RDW (11.5-14.5) % Plt Count (130-400) K/uL MPV (7.2-11.7) fL Neut % (Auto) (50.0-75.0) % Lymph % (Auto) (20.0-40.0) % [place] % (Auto) (0.0-10.0) % Eos % (Auto) (0.0-4.0) % Baso % (Auto) (0.0-2.0) % Neut # (Auto) (1.8-7.0) K/uL Lymph # (Auto) (1.0-4.3) K/uL [place] # (Auto) (0.0-0.8) K/uL Eos # (Auto) (0.0-0.7) K/uL Baso # (Auto) (0.0-0.2) K/uL PT (9.7-12.2) SECONDS INR APTT (21-34) SECONDS Puncture Site pCO2 (35-45) mm/Hg pO2 (80-100) mm/Hg HCO3 (21-28) mmol/L ABG pH (7.35-7.45) ABG Total CO2 (22-28) mmol/L ABG O2 Saturation (95-98) % ABG Base Excess (-2.0-3.0) mmol/L Shankar Test ABG Potassium (3.6-5.2) mmol/L VBG pH (7.32-7.43) VBG pCO2 (40-60) mmHg VBG HCO3 mmol/L VBG Total CO2 (22-28) mmol/L VBG O2 Sat (Calc) (40-65) % VBG Base Excess (0.0-2.0) mmol/L VBG Potassium (3.6-5.2) mmol/L A-a O2 Difference mm/Hg Respiratory Index Sodium (132-148) mmol/l Chloride (98-107) mmol/L Glucose (75-110) mg/dl Lactate (0.7-2.1) mmol/L Liter Flow Vent Mode Mechanical Rate FiO2 % Tidal Volume PEEP Crit Value Called To Crit Value Called By Crit Value Read Back Blood Gas Notified Time Potassium (3.6-5.2) mmol/L Carbon Dioxide (22-30) mmol/L Anion Gap (10-20) BUN (9-20) mg/dL Creatinine (0.8-1.5) mg/dL Est GFR ( Amer) Est GFR (Non-Af Amer) POC Glucose (mg/dL) 65 52 L 62 L (65-110) mg/dL Random Glucose (75-110) mg/dL Calcium (8.6-10.4) mg/dl Magnesium (1.6-2.3) mg/dL Total Bilirubin (0.2-1.3) mg/dL AST (17-59) U/L ALT (21-72) U/L Alkaline Phosphatase (38-126) U/L Total Creatine Kinase (55-170) U/L CK-MB (Mass) (0.0-3.38) ng/mL Troponin I (0.00-0.120) ng/mL Total Protein (6.3-8.3) g/dL Albumin (3.5-5.0) g/dL Globulin (2.2-3.9) gm/dL Albumin/Globulin Ratio (1.0-2.1) Cortisol AM Sample (4.46-22.7) ug/dL Arterial Blood Potassium (3.6-5.2) mmol/L Venous Blood Potassium (3.6-5.2) mmol/L Blood Type Antibody Screen 07/02/18 07/02/18 07/02/18 Range/Units 06:07 06:05 05:42 WBC (4.8-10.8) K/uL RBC (4.40-5.90) Mil/uL Hgb (12.0-18.0) g/dL Hct (35.0-51.0) % MCV (80.0-94.0) fL MCH (27.0-31.0) pg MCHC (33.0-37.0) g/dL RDW (11.5-14.5) % Plt Count (130-400) K/uL MPV (7.2-11.7) fL Neut % (Auto) (50.0-75.0) % Lymph % (Auto) (20.0-40.0) % [place] % (Auto) (0.0-10.0) % Eos % (Auto) (0.0-4.0) % Baso % (Auto) (0.0-2.0) % Neut # (Auto) (1.8-7.0) K/uL Lymph # (Auto) (1.0-4.3) K/uL [place] # (Auto) (0.0-0.8) K/uL Eos # (Auto) (0.0-0.7) K/uL Baso # (Auto) (0.0-0.2) K/uL PT (9.7-12.2) SECONDS INR APTT (21-34) SECONDS Puncture Site R rad pCO2 26 L (35-45) mm/Hg pO2 165 H (80-100) mm/Hg HCO3 10.8 L (21-28) mmol/L ABG pH 7.15 L* (7.35-7.45) ABG Total CO2 9.9 L (22-28) mmol/L ABG O2 Saturation 99.8 H (95-98) % ABG Base Excess -18.2 L (-2.0-3.0) mmol/L Shankar Test Pos ABG Potassium 5.9 H (3.6-5.2) mmol/L VBG pH (7.32-7.43) VBG pCO2 (40-60) mmHg VBG HCO3 mmol/L VBG Total CO2 (22-28) mmol/L VBG O2 Sat (Calc) (40-65) % VBG Base Excess (0.0-2.0) mmol/L VBG Potassium (3.6-5.2) mmol/L A-a O2 Difference 230.0 mm/Hg Respiratory Index 1.4 Sodium 133.0 (132-148) mmol/l Chloride 98.0 (98-107) mmol/L Glucose < 4 L* D (75-110) mg/dl Lactate 16.5 H* (0.7-2.1) mmol/L Liter Flow Vent Mode Prvc Mechanical Rate 20 FiO2 60.0 % Tidal Volume 550 PEEP 5 Crit Value Called To Melida smith auriculotherapist Crit Value Called By Mariel good rt Crit Value Read Back Y Blood Gas Notified Time 600 Potassium (3.6-5.2) mmol/L Carbon Dioxide (22-30) mmol/L Anion Gap (10-20) BUN (9-20) mg/dL Creatinine (0.8-1.5) mg/dL Est GFR ( Amer) Est GFR (Non-Af Amer) POC Glucose (mg/dL) < 20 L* < 20 L* (65-110) mg/dL Random Glucose (75-110) mg/dL Calcium (8.6-10.4) mg/dl Magnesium (1.6-2.3) mg/dL Total Bilirubin (0.2-1.3) mg/dL AST (17-59) U/L ALT (21-72) U/L Alkaline Phosphatase (38-126) U/L Total Creatine Kinase (55-170) U/L CK-MB (Mass) (0.0-3.38) ng/mL Troponin I (0.00-0.120) ng/mL Total Protein (6.3-8.3) g/dL Albumin (3.5-5.0) g/dL Globulin (2.2-3.9) gm/dL Albumin/Globulin Ratio (1.0-2.1) Cortisol AM Sample (4.46-22.7) ug/dL Arterial Blood Potassium 5.9 H (3.6-5.2) mmol/L Venous Blood Potassium (3.6-5.2) mmol/L Blood Type Antibody Screen 07/02/18 07/02/1807/02/18 Range/Units 02:05 02:05 02:05 WBC 8.2 (4.8-10.8) K/uL RBC 3.12 L (4.40-5.90) Mil/uL Hgb 7.4 L (12.0-18.0) g/dL Hct 25.1 L (35.0-51.0) % MCV 80.4 D (80.0-94.0) fL MCH 23.9 L (27.0-31.0) pg MCHC 29.7 L (33.0-37.0) g/dL RDW 19.7 H (11.5-14.5) % Plt Count 247 (130-400) K/uL MPV 9.0 (7.2-11.7) fL Neut % (Auto) 69.9 (50.0-75.0) % Lymph % (Auto) 13.6 L (20.0-40.0) % [place] % (Auto) 15.7 H (0.0-10.0) % Eos % (Auto) 0.1 (0.0-4.0) % Baso % (Auto) 0.7 (0.0-2.0) % Neut # (Auto) 5.7 (1.8-7.0) K/uL Lymph # (Auto) 1.1 (1.0-4.3) K/uL [place] # (Auto) 1.3 H (0.0-0.8) K/uL Eos # (Auto) 0.0 (0.0-0.7) K/uL Baso # (Auto) 0.1 (0.0-0.2) K/uL PT 26.6 H (9.7-12.2) SECONDS INR 2.4 APTT 40 H (21-34) SECONDS Puncture Site pCO2 (35-45) mm/Hg pO2 (80-100) mm/Hg HCO3 (21-28) mmol/L ABG pH (7.35-7.45) ABG Total CO2 (22-28) mmol/L ABG O2 Saturation (95-98) % ABG Base Excess (-2.0-3.0) mmol/L Shankar Test ABG Potassium (3.6-5.2) mmol/L VBG pH (7.32-7.43) VBG pCO2 (40-60) mmHg VBG HCO3 mmol/L VBG Total CO2 (22-28) mmol/L VBG O2 Sat (Calc) (40-65) % VBG Base Excess (0.0-2.0) mmol/L VBG Potassium (3.6-5.2) mmol/L A-a O2 Difference mm/Hg Respiratory Index Sodium 140 (132-148) mmol/l Chloride 95 L (98-107) mmol/L Glucose (75-110) mg/dl Lactate (0.7-2.1) mmol/L Liter Flow Vent Mode Mechanical Rate FiO2 % Tidal Volume PEEP Crit Value Called To Crit Value Called By Crit Value Read Back Blood Gas Notified Time Potassium 5.3 H (3.6-5.2) mmol/L Carbon Dioxide 12 L (22-30) mmol/L Anion Gap 38 H (10-20) BUN 32 H (9-20) mg/dL Creatinine 6.5 H (0.8-1.5) mg/dL Est GFR ( Amer) 11 Est GFR (Non-Af Amer) 9 POC Glucose (mg/dL) (65-110) mg/dL Random Glucose 48 L (75-110) mg/dL Calcium 8.8 (8.6-10.4) mg/dl Magnesium 2.0 (1.6-2.3) mg/dL Total Bilirubin 1.3 (0.2-1.3) mg/dL AST 603 H D (17-59) U/L ALT 141 H D (21-72) U/L Alkaline Phosphatase 278 H D (38-126) U/L Total Creatine Kinase (55-170) U/L CK-MB (Mass) (0.0-3.38) ng/mL Troponin I 0.0440 (0.00-0.120) ng/mL Total Protein 7.8 (6.3-8.3) g/dL Albumin 3.8 (3.5-5.0) g/dL Globulin 3.9 (2.2-3.9) gm/dL Albumin/Globulin Ratio 1.0 (1.0-2.1) Cortisol AM Sample (4.46-22.7) ug/dL Arterial Blood Potassium (3.6-5.2) mmol/L Venous Blood Potassium (3.6-5.2) mmol/L Blood Type Antibody Screen 07/02/18 07/01/18 07/01/18 Range/Units 01:45 23:33 23:25 WBC (4.8-10.8) K/uL RBC (4.40-5.90) Mil/uL Hgb (12.0-18.0) g/dL Hct (35.0-51.0) % MCV (80.0-94.0) fL MCH (27.0-31.0) pg MCHC (33.0-37.0) g/dL RDW (11.5-14.5) % Plt Count (130-400) K/uL MPV (7.2-11.7) fL Neut % (Auto) (50.0-75.0) % Lymph % (Auto) (20.0-40.0) % [place] % (Auto) (0.0-10.0) % Eos % (Auto) (0.0-4.0) % Baso % (Auto) (0.0-2.0) % Neut # (Auto) (1.8-7.0) K/uL Lymph # (Auto) (1.0-4.3) K/uL [place] # (Auto) (0.0-0.8) K/uL Eos # (Auto) (0.0-0.7) K/uL Baso # (Auto) (0.0-0.2) K/uL PT (9.7-12.2) SECONDS INR APTT (21-34) SECONDS Puncture Site R rad pCO2 35 (35-45) mm/Hg pO2 23 L 88 (80-100) mm/Hg HCO3 12.2 L (21-28) mmol/L ABG pH 7.14 L* (7.35-7.45) ABG Total CO2 13.0 L (22-28) mmol/L ABG O2 Saturation 96.5 (95-98) % ABG Base Excess -16.2 L (-2.0-3.0) mmol/L Shankar Test Pos ABG Potassium 5.1 (3.6-5.2) mmol/L VBG pH 7.08 L* (7.32-7.43) VBG pCO2 46 (40-60) mmHg VBG HCO3 10.3 mmol/L VBG Total CO2 15.0 L (22-28) mmol/L VBG O2 Sat (Calc) 25.2 L (40-65) % VBG Base Excess -16.1 L (0.0-2.0) mmol/L VBG Potassium 5.2 (3.6-5.2) mmol/L A-a O2 Difference mm/Hg Respiratory Index Sodium 134.0 134.0 (132-148) mmol/l Chloride 97.0 L 98.0 (98-107) mmol/L Glucose 47 L 83 (75-110) mg/dl Lactate 14.8 H* 14.4 H* (0.7-2.1) mmol/L Liter Flow 6.0 Vent Mode Mechanical Rate FiO2 50.0 % Tidal Volume PEEP 5 Crit Value Called To Melida smith auriculotherapist Melida smith auriculotherapist Crit Value Called By Mariel good rt Mariel good rt Crit Value Read Back Y Y Blood Gas Notified Time 200 2348 Potassium (3.6-5.2) mmol/L Carbon Dioxide (22-30) mmol/L Anion Gap (10-20) BUN (9-20) mg/dL Creatinine (0.8-1.5) mg/dL Est GFR ( Amer) Est GFR (Non-Af Amer) POC Glucose (mg/dL) 93 (65-110) mg/dL Random Glucose (75-110) mg/dL Calcium (8.6-10.4) mg/dl Magnesium (1.6-2.3) mg/dL Total Bilirubin (0.2-1.3) mg/dL AST (17-59) U/L ALT (21-72) U/L Alkaline Phosphatase (38-126) U/L Total Creatine Kinase (55-170) U/L CK-MB (Mass) (0.0-3.38) ng/mL Troponin I (0.00-0.120) ng/mL Total Protein (6.3-8.3) g/dL Albumin (3.5-5.0) g/dL Globulin (2.2-3.9) gm/dL Albumin/Globulin Ratio (1.0-2.1) Cortisol AM Sample (4.46-22.7) ug/dL Arterial Blood Potassium 5.1 (3.6-5.2) mmol/L Venous Blood Potassium 5.2 (3.6-5.2) mmol/L Blood Type Antibody Screen 07/01/18 07/01/18 07/01/18 Range/Units 21:18 20:48 20:46 WBC (4.8-10.8) K/uL RBC (4.40-5.90) Mil/uL Hgb (12.0-18.0) g/dL Hct (35.0-51.0) % MCV (80.0-94.0) fL MCH (27.0-31.0) pg MCHC (33.0-37.0) g/dL RDW (11.5-14.5) % Plt Count (130-400) K/uL MPV (7.2-11.7) fL Neut % (Auto) (50.0-75.0) % Lymph % (Auto) (20.0-40.0) % [place] % (Auto) (0.0-10.0) % Eos % (Auto) (0.0-4.0) % Baso % (Auto) (0.0-2.0) % Neut # (Auto) (1.8-7.0) K/uL Lymph # (Auto) (1.0-4.3) K/uL [place] # (Auto) (0.0-0.8) K/uL Eos # (Auto) (0.0-0.7) K/uL Baso # (Auto) (0.0-0.2) K/uL PT (9.7-12.2) SECONDS INR APTT (21-34) SECONDS Puncture Site pCO2 (35-45) mm/Hg pO2 (80-100) mm/Hg HCO3 (21-28) mmol/L ABG pH (7.35-7.45) ABG Total CO2 (22-28) mmol/L ABG O2 Saturation (95-98) % ABG Base Excess (-2.0-3.0) mmol/L Shankar Test ABG Potassium (3.6-5.2) mmol/L VBG pH (7.32-7.43) VBG pCO2 (40-60) mmHg VBG HCO3 mmol/L VBG Total CO2 (22-28) mmol/L VBG O2 Sat (Calc) (40-65) % VBG Base Excess (0.0-2.0) mmol/L VBG Potassium (3.6-5.2) mmol/L A-a O2 Difference mm/Hg Respiratory Index Sodium (132-148) mmol/l Chloride (98-107) mmol/L Glucose (75-110) mg/dl Lactate (0.7-2.1) mmol/L Liter Flow Vent Mode Mechanical Rate FiO2 % Tidal Volume PEEP Crit Value Called To Crit Value Called By Crit Value Read Back Blood Gas Notified Time Potassium (3.6-5.2) mmol/L Carbon Dioxide (22-30) mmol/L Anion Gap (10-20) BUN (9-20) mg/dL Creatinine (0.8-1.5) mg/dL Est GFR ( Amer) Est GFR (Non-Af Amer) POC Glucose (mg/dL) 104 52 L 49 L (65-110) mg/dL Random Glucose (75-110) mg/dL Calcium (8.6-10.4) mg/dl Magnesium (1.6-2.3) mg/dL Total Bilirubin (0.2-1.3) mg/dL AST (17-59) U/L ALT (21-72) U/L Alkaline Phosphatase (38-126) U/L Total Creatine Kinase (55-170) U/L CK-MB (Mass) (0.0-3.38) ng/mL Troponin I (0.00-0.120) ng/mL Total Protein (6.3-8.3) g/dL Albumin (3.5-5.0) g/dL Globulin (2.2-3.9) gm/dL Albumin/Globulin Ratio (1.0-2.1) Cortisol AM Sample (4.46-22.7) ug/dL Arterial Blood Potassium (3.6-5.2) mmol/L Venous Blood Potassium (3.6-5.2) mmol/L Blood Type Antibody Screen 07/01/18 07/01/18 07/01/18 Range/Units 20:13 20:12 16:09 WBC (4.8-10.8) K/uL RBC (4.40-5.90) Mil/uL Hgb (12.0-18.0) g/dL Hct (35.0-51.0) % MCV (80.0-94.0) fL MCH (27.0-31.0) pg MCHC (33.0-37.0) g/dL RDW (11.5-14.5) % Plt Count (130-400) K/uL MPV (7.2-11.7) fL Neut % (Auto) (50.0-75.0) % Lymph % (Auto) (20.0-40.0) % [place] % (Auto) (0.0-10.0) % Eos % (Auto) (0.0-4.0) % Baso % (Auto) (0.0-2.0) % Neut # (Auto) (1.8-7.0) K/uL Lymph # (Auto) (1.0-4.3) K/uL [place] # (Auto) (0.0-0.8) K/uL Eos # (Auto) (0.0-0.7) K/uL Baso # (Auto) (0.0-0.2) K/uL PT (9.7-12.2) SECONDS INR APTT (21-34) SECONDS Puncture Site pCO2 (35-45) mm/Hg pO2 (80-100) mm/Hg HCO3 (21-28) mmol/L ABG pH (7.35-7.45) ABG Total CO2 (22-28) mmol/L ABG O2 Saturation (95-98) % ABG Base Excess (-2.0-3.0) mmol/L Shankar Test ABG Potassium (3.6-5.2) mmol/L VBG pH (7.32-7.43) VBG pCO2 (40-60) mmHg VBG HCO3 mmol/L VBG Total CO2 (22-28) mmol/L VBG O2 Sat (Calc) (40-65) % VBG Base Excess (0.0-2.0) mmol/L VBG Potassium (3.6-5.2) mmol/L A-a O2 Difference mm/Hg Respiratory Index Sodium (132-148) mmol/l Chloride (98-107) mmol/L Glucose (75-110) mg/dl Lactate (0.7-2.1) mmol/L Liter Flow Vent Mode Mechanical Rate FiO2 % Tidal Volume PEEP Crit Value Called To Crit Value Called By Crit Value Read Back Blood Gas Notified Time Potassium (3.6-5.2) mmol/L Carbon Dioxide (22-30) mmol/L Anion Gap (10-20) BUN (9-20) mg/dL Creatinine (0.8-1.5) mg/dL Est GFR ( Amer) Est GFR (Non-Af Amer) POC Glucose (mg/dL) 59 L 59 L 71 (65-110) mg/dL Random Glucose (75-110) mg/dL Calcium (8.6-10.4) mg/dl Magnesium (1.6-2.3) mg/dL Total Bilirubin (0.2-1.3) mg/dL AST (17-59) U/L ALT (21-72) U/L Alkaline Phosphatase (38-126) U/L Total Creatine Kinase (55-170) U/L CK-MB (Mass) (0.0-3.38) ng/mL Troponin I (0.00-0.120) ng/mL Total Protein (6.3-8.3) g/dL Albumin (3.5-5.0) g/dL Globulin (2.2-3.9) gm/dL Albumin/Globulin Ratio (1.0-2.1) Cortisol AM Sample (4.46-22.7) ug/dL Arterial Blood Potassium (3.6-5.2) mmol/L Venous Blood Potassium (3.6-5.2) mmol/L Blood Type Antibody Screen 07/01/18 07/01/18 Range/Units 15:42 13:41 WBC (4.8-10.8) K/uL RBC (4.40-5.90) Mil/uL Hgb (12.0-18.0) g/dL Hct (35.0-51.0) % MCV (80.0-94.0) fL MCH (27.0-31.0) pg MCHC (33.0-37.0) g/dL RDW (11.5-14.5) % Plt Count (130-400) K/uL MPV (7.2-11.7) fL Neut % (Auto) (50.0-75.0) % Lymph % (Auto) (20.0-40.0) % [place] % (Auto) (0.0-10.0) % Eos % (Auto) (0.0-4.0) % Baso % (Auto) (0.0-2.0) % Neut # (Auto) (1.8-7.0) K/uL Lymph # (Auto) (1.0-4.3) K/uL [place] # (Auto) (0.0-0.8) K/uL Eos # (Auto) (0.0-0.7) K/uL Baso # (Auto) (0.0-0.2) K/uL PT (9.7-12.2) SECONDS INR APTT (21-34) SECONDS Puncture Site Rra pCO2 38 (35-45) mm/Hg pO2 139 H (80-100) mm/Hg HCO3 21.2 (21-28) mmol/L ABG pH 7.34 L (7.35-7.45) ABG Total CO2 21.7 L (22-28) mmol/L ABG O2 Saturation 99.6 H (95-98) % ABG Base Excess -4.8 L (-2.0-3.0) mmol/L Shankar Test Pos ABG Potassium 3.7 (3.6-5.2) mmol/L VBG pH (7.32-7.43) VBG pCO2 (40-60) mmHg VBG HCO3 mmol/L VBG Total CO2 (22-28) mmol/L VBG O2 Sat (Calc) (40-65) % VBG Base Excess (0.0-2.0) mmol/L VBG Potassium (3.6-5.2) mmol/L A-a O2 Difference mm/Hg Respiratory Index Sodium 140.0 (132-148) mmol/l Chloride 114.0 H (98-107) mmol/L Glucose 167 H (75-110) mg/dl Lactate 3.6 H (0.7-2.1) mmol/L Liter Flow 4.0 Vent Mode Mechanical Rate FiO2 % Tidal Volume PEEP Crit Value Called To Crit Value Called By Crit Value Read Back Blood Gas Notified Time Potassium (3.6-5.2) mmol/L Carbon Dioxide (22-30) mmol/L Anion Gap (10-20) BUN (9-20) mg/dL Creatinine (0.8-1.5) mg/dL Est GFR ( Amer) Est GFR (Non-Af Amer) POC Glucose (mg/dL) (65-110) mg/dL Random Glucose (75-110) mg/dL Calcium (8.6-10.4) mg/dl Magnesium (1.6-2.3) mg/dL Total Bilirubin (0.2-1.3) mg/dL AST (17-59) U/L ALT (21-72) U/L Alkaline Phosphatase (38-126) U/L Total Creatine Kinase 21 L (55-170) U/L CK-MB (Mass) 0.44 (0.0-3.38) ng/mL Troponin I 0.0400 (0.00-0.120) ng/mL Total Protein (6.3-8.3) g/dL Albumin (3.5-5.0) g/dL Globulin (2.2-3.9) gm/dL Albumin/Globulin Ratio (1.0-2.1) Cortisol AM Sample (4.46-22.7) ug/dL Arterial Blood Potassium 3.7 (3.6-5.2) mmol/L Venous Blood Potassium (3.6-5.2) mmol/L Blood Type Antibody Screen Laboratory Results - last 24 hr 07/01/18 07/01/18 07/01/18 13:41 15:42 16:09 WBC RBC Hgb Hct MCV MCH MCHC RDW Plt Count MPV Neut % (Auto) Lymph % (Auto) [place] % (Auto) Eos % (Auto) Baso % (Auto) Neut # (Auto) Lymph # (Auto) [place] # (Auto) Eos # (Auto) Baso # (Auto) PT INR APTT Puncture Site Rra pCO2 38 pO2 139 H HCO3 21.2 ABG pH 7.34 L ABG Total CO2 21.7 L ABG O2 Saturation 99.6 H ABG Base Excess -4.8 L Shankar Test Pos ABG Potassium 3.7 VBG pH VBG pCO2 VBG HCO3 VBG Total CO2 VBG O2 Sat (Calc) VBG Base Excess VBG Potassium A-a O2 Difference Respiratory Index Sodium 140.0 Chloride 114.0 H Glucose 167 H Lactate 3.6 H Liter Flow 4.0 Vent Mode Mechanical Rate FiO2 Tidal Volume PEEP Crit Value Called To Crit Value Called By Crit Value Read Back Blood Gas Notified Time Potassium Carbon Dioxide Anion Gap BUN Creatinine Est GFR ( Amer) Est GFR (Non-Af Amer) POC Glucose (mg/dL) 71 Random Glucose Calcium Magnesium Total Bilirubin AST ALT Alkaline Phosphatase Total Creatine Kinase 21 L CK-MB (Mass) 0.44 Troponin I 0.0400 Total Protein Albumin Globulin Albumin/Globulin Ratio Cortisol AM Sample Arterial Blood Potassium 3.7 Venous Blood Potassium Blood Type Antibody Screen 07/01/18 07/01/18 07/01/18 20:12 20:13 20:46 WBC RBC Hgb Hct MCV MCH MCHC RDW Plt Count MPV Neut % (Auto) Lymph % (Auto) [place] % (Auto) Eos % (Auto) Baso % (Auto) Neut # (Auto) Lymph # (Auto) [place] # (Auto) Eos # (Auto) Baso # (Auto) PT INR APTT Puncture Site pCO2 pO2 HCO3 ABG pH ABG Total CO2 ABG O2 Saturation ABG Base Excess Shankar Test ABG Potassium VBG pH VBG pCO2 VBG HCO3 VBG Total CO2 VBG O2 Sat (Calc) VBG Base Excess VBG Potassium A-a O2 Difference Respiratory Index Sodium Chloride Glucose Lactate Liter Flow Vent Mode Mechanical Rate FiO2 Tidal Volume PEEP Crit Value Called To Crit Value Called By Crit Value Read Back Blood Gas Notified Time Potassium Carbon Dioxide Anion Gap BUN Creatinine Est GFR ( Amer) Est GFR (Non-Af Amer) POC Glucose (mg/dL) 59 L 59 L 49 L Random Glucose Calcium Magnesium Total Bilirubin AST ALT Alkaline Phosphatase Total Creatine Kinase CK-MB (Mass) Troponin I Total Protein Albumin Globulin Albumin/Globulin Ratio Cortisol AM Sample Arterial Blood Potassium Venous Blood Potassium Blood Type Antibody Screen 07/01/18 07/01/18 07/01/18 20:48 21:18 23:25 WBC RBC Hgb Hct MCV MCH MCHC RDW Plt Count MPV Neut % (Auto) Lymph % (Auto) [place] % (Auto) Eos % (Auto) Baso % (Auto) Neut # (Auto) Lymph # (Auto) [place] # (Auto) Eos # (Auto) Baso # (Auto) PT INR APTT Puncture Site R rad pCO2 35 pO2 88 HCO3 12.2 L ABG pH 7.14 L* ABG Total CO2 13.0 L ABG O2 Saturation 96.5 ABG Base Excess -16.2 L Shankar Test Pos ABG Potassium 5.1 VBG pH VBG pCO2 VBG HCO3 VBG Total CO2 VBG O2 Sat (Calc) VBG Base Excess VBG Potassium A-a O2 Difference Respiratory Index Sodium 134.0 Chloride 98.0 Glucose 83 Lactate 14.4 H* Liter Flow 6.0 Vent Mode Mechanical Rate FiO2 Tidal Volume PEEP Crit Value Called To [facility] auriculotherapist Crit Value Called By Mariel good rt Crit Value Read Back Y Blood Gas Notified Time 1585 Potassium Carbon Dioxide Anion Gap BUN Creatinine Est GFR ( Amer) Est GFR (Non-Af Amer) POC Glucose (mg/dL) 52 L 104 Random Glucose Calcium Magnesium Total Bilirubin AST ALT Alkaline Phosphatase Total Creatine Kinase CK-MB (Mass) Troponin I Total Protein Albumin Globulin Albumin/Globulin Ratio Cortisol AM Sample Arterial Blood Potassium 5.1 Venous Blood Potassium Blood Type Antibody Screen 07/01/18 07/02/18 07/02/18 23:33 01:45 02:05 WBC 8.2 RBC 3.12 L Hgb 7.4 L Hct 25.1 L MCV 80.4 D MCH 23.9 L MCHC 29.7 L RDW 19.7 H Plt Count 247 MPV 9.0 Neut % (Auto) 69.9 Lymph % (Auto) 13.6 L [place] % (Auto) 15.7 H Eos % (Auto) 0.1 Baso % (Auto) 0.7 Neut # (Auto) 5.7 Lymph # (Auto) 1.1 [place] # (Auto) 1.3 H Eos # (Auto) 0.0 Baso # (Auto) 0.1 PT INR APTT Puncture Site pCO2 pO2 23 L HCO3 ABG pH ABG Total CO2 ABG O2 Saturation ABG Base Excess Shankar Test ABG Potassium VBG pH 7.08 L* VBG pCO2 46 VBG HCO3 10.3 VBG Total CO2 15.0 L VBG O2 Sat (Calc) 25.2 L VBG Base Excess -16.1 L VBG Potassium 5.2 A-a O2 Difference Respiratory Index Sodium 134.0 Chloride 97.0 L Glucose 47 L Lactate 14.8 H* Liter Flow Vent Mode Mechanical Rate FiO2 50.0 Tidal Volume PEEP 5 Crit Value Called To [facility] auriculotherapist Crit Value Called By Mariel good rt Crit Value Read Back Y Blood Gas Notified Time 200 Potassium Carbon Dioxide Anion Gap BUN Creatinine Est GFR ( Amer) Est GFR (Non-Af Amer) POC Glucose (mg/dL) 93 Random Glucose Calcium Magnesium Total Bilirubin AST ALT Alkaline Phosphatase Total Creatine Kinase CK-MB (Mass) Troponin I Total Protein Albumin Globulin Albumin/Globulin Ratio Cortisol AM Sample Arterial Blood Potassium Venous Blood Potassium 5.2 Blood Type Antibody Screen 07/02/18 07/02/18 07/02/18 02:05 02:05 05:42 WBC RBC Hgb Hct MCV MCH MCHC RDW Plt Count MPV Neut % (Auto) Lymph % (Auto) [place] % (Auto) Eos % (Auto) Baso % (Auto) Neut # (Auto) Lymph # (Auto) [place] # (Auto) Eos # (Auto) Baso # (Auto) PT 26.6 H INR 2.4 APTT 40 H Puncture Site R rad pCO2 26 L pO2 165 H HCO3 10.8 L ABG pH 7.15 L* ABG Total CO2 9.9 L ABG O2 Saturation 99.8 H ABG Base Excess -18.2 L Shankar Test Pos ABG Potassium 5.9 H VBG pH VBG pCO2 VBG HCO3 VBG Total CO2 VBG O2 Sat (Calc) VBG Base Excess VBG Potassium A-a O2 Difference 230.0 Respiratory Index 1.4 Sodium 140 133.0 Chloride 95 L 98.0 Glucose < 4 L* D Lactate 16.5 H* Liter Flow Vent Mode Prvc Mechanical Rate 20 FiO2 60.0 Tidal Volume 550 PEEP 5 Crit Value Called To Melidalyndsey smith auriculotherapist Crit Value Called By Mariel good rt Crit Value Read Back Y Blood Gas Notified Time 600 Potassium 5.3 H Carbon Dioxide 12 L Anion Gap 38 H BUN 32 H Creatinine 6.5 H Est GFR ( Amer) 11 Est GFR (Non-Af Amer) 9 POC Glucose (mg/dL) Random Glucose 48 L Calcium 8.8 Magnesium 2.0 Total Bilirubin 1.3 AST 603 H D ALT 141 H D Alkaline Phosphatase 278 H D Total Creatine Kinase CK-MB (Mass) Troponin I 0.0440 Total Protein 7.8 Albumin 3.8 Globulin 3.9 Albumin/Globulin Ratio 1.0 Cortisol AM Sample Arterial Blood Potassium 5.9 H Venous Blood Potassium Blood Type Antibody Screen 07/02/18 07/02/18 07/02/18 06:05 06:07 06:42 WBC RBC Hgb Hct MCV MCH MCHC RDW Plt Count MPV Neut % (Auto) Lymph % (Auto) [place] % (Auto) Eos % (Auto) Baso % (Auto) Neut # (Auto) Lymph # (Auto) [place] # (Auto) Eos # (Auto) Baso # (Auto) PT INR APTT Puncture Site pCO2 pO2 HCO3 ABG pH ABG Total CO2 ABG O2 Saturation ABG Base Excess Shankar Test ABG Potassium VBG pH VBG pCO2 VBG HCO3 VBG Total CO2 VBG O2 Sat (Calc) VBG Base Excess VBG Potassium A-a O2 Difference Respiratory Index Sodium Chloride Glucose Lactate Liter Flow Vent Mode Mechanical Rate FiO2 Tidal Volume PEEP Crit Value Called To Crit Value Called By Crit Value Read Back Blood Gas Notified Time Potassium Carbon Dioxide Anion Gap BUN Creatinine Est GFR ( Amer) Est GFR (Non-Af Amer) POC Glucose (mg/dL) < 20 L* < 20 L* 62 L Random Glucose Calcium Magnesium Total Bilirubin AST ALT Alkaline Phosphatase Total Creatine Kinase CK-MB (Mass) Troponin I Total Protein Albumin Globulin Albumin/Globulin Ratio Cortisol AM Sample Arterial Blood Potassium Venous Blood Potassium Blood Type Antibody Screen 07/02/18 07/02/18 07/02/18 06:44 07:16 07:18 WBC RBC Hgb Hct MCV MCH MCHC RDW Plt Count MPV Neut % (Auto) Lymph % (Auto) [place] % (Auto) Eos % (Auto) Baso % (Auto) Neut # (Auto) Lymph # (Auto) [place] # (Auto) Eos # (Auto) Baso # (Auto) PT INR APTT Puncture Site pCO2 pO2 HCO3 ABG pH ABG Total CO2 ABG O2 Saturation ABG Base Excess Shankar Test ABG Potassium VBG pH VBG pCO2 VBG HCO3 VBG Total CO2 VBG O2 Sat (Calc) VBG Base Excess VBG Potassium A-a O2 Difference Respiratory Index Sodium Chloride Glucose Lactate Liter Flow Vent Mode Mechanical Rate FiO2 Tidal Volume PEEP Crit Value Called To Crit Value Called By Crit Value Read Back Blood Gas Notified Time Potassium Carbon Dioxide Anion Gap BUN Creatinine Est GFR ( Amer) Est GFR (Non-Af Amer) POC Glucose (mg/dL) 52 L 65 72 Random Glucose Calcium Magnesium Total Bilirubin AST ALT Alkaline Phosphatase Total Creatine Kinase CK-MB (Mass) Troponin I Total Protein Albumin Globulin Albumin/Globulin Ratio Cortisol AM Sample Arterial Blood Potassium Venous Blood Potassium Blood Type Antibody Screen 07/02/18 07/02/18 07/02/18 08:34 09:11 11:38 WBC RBC Hgb Hct MCV MCH MCHC RDW Plt Count MPV Neut % (Auto) Lymph % (Auto) [place] % (Auto) Eos % (Auto) Baso % (Auto) Neut # (Auto) Lymph # (Auto) [place] # (Auto) Eos # (Auto) Baso # (Auto) PT INR APTT Puncture Site [place] pCO2 24 L pO2 150 H HCO3 7.5 L* ABG pH 7.05 L* ABG Total CO2 7.3 L ABG O2 Saturation 99.7 H ABG Base Excess -22.4 L Shankar Test N/a ABG Potassium 5.3 H VBG pH VBG pCO2 VBG HCO3 VBG Total CO2 VBG O2 Sat (Calc) VBG Base Excess VBG Potassium A-a O2 Difference 248.0 Respiratory Index 1.7 Sodium 134.0 Chloride 102.0 Glucose 38 L* D Lactate 16.2 H* Liter Flow Vent Mode Prvc Mechanical Rate 24 FiO2 60.0 Tidal Volume 500 PEEP 5 Crit Value Called To Dr post Crit Value Called By Rogelio escalera transcribing operator head Crit Value Read Back Y Blood Gas Notified Time 919 Potassium Carbon Dioxide Anion Gap BUN Creatinine Est GFR ( Amer) Est GFR (Non-Af Amer) POC Glucose (mg/dL) < 20 L* Random Glucose Calcium Magnesium Total Bilirubin AST ALT Alkaline Phosphatase Total Creatine Kinase CK-MB (Mass) Troponin I Total Protein Albumin Globulin Albumin/Globulin Ratio Cortisol AM Sample 37.1 H Arterial Blood Potassium 5.3 H Venous Blood Potassium Blood Type Antibody Screen 07/02/18 07/02/18 07/02/18 11:40 12:13 12:14 WBC RBC Hgb Hct MCV MCH MCHC RDW Plt Count MPV Neut % (Auto) Lymph % (Auto) [place] % (Auto) Eos % (Auto) Baso % (Auto) Neut # (Auto) Lymph # (Auto) [place] # (Auto) Eos # (Auto) Baso # (Auto) PT INR APTT Puncture Site pCO2 pO2 HCO3 ABG pH ABG Total CO2 ABG O2 Saturation ABG Base Excess Shankar Test ABG Potassium VBG pH VBG pCO2 VBG HCO3 VBG Total CO2 VBG O2 Sat (Calc) VBG Base Excess VBG Potassium A-a O2 Difference Respiratory Index Sodium Chloride Glucose Lactate Liter Flow Vent Mode Mechanical Rate FiO2 Tidal Volume PEEP Crit Value Called To Crit Value Called By Crit Value Read Back Blood Gas Notified Time Potassium Carbon Dioxide Anion Gap BUN Creatinine Est GFR ( Amer) Est GFR (Non-Af Amer) POC Glucose (mg/dL) < 20 L* 35 L* 53 L Random Glucose Calcium Magnesium Total Bilirubin AST ALT Alkaline Phosphatase Total Creatine Kinase CK-MB (Mass) Troponin I Total Protein Albumin Globulin Albumin/Globulin Ratio Cortisol AM Sample Arterial Blood Potassium Venous Blood Potassium Blood Type Antibody Screen 07/02/18 07/02/18 12:36 Unknown WBC RBC Hgb Hct MCV MCH MCHC RDW Plt Count MPV Neut % (Auto) Lymph % (Auto) [place] % (Auto) Eos % (Auto) Baso % (Auto) Neut # (Auto) Lymph # (Auto) [place] # (Auto) Eos # (Auto) Baso # (Auto) PT INR APTT Puncture Site pCO2 pO2 HCO3 ABG pH ABG Total CO2 ABG O2 Saturation ABG Base Excess Shankar Test ABG Potassium VBG pH VBG pCO2 VBG HCO3 VBG Total CO2 VBG O2 Sat (Calc) VBG Base Excess VBG Potassium A-a O2 Difference Respiratory Index Sodium Chloride Glucose Lactate Liter Flow Vent Mode Mechanical Rate FiO2 Tidal Volume PEEP Crit Value Called To Crit Value Called By Crit Value Read Back Blood Gas Notified Time Potassium Carbon Dioxide Anion Gap BUN Creatinine Est GFR ( Amer) Est GFR (Non-Af Amer) POC Glucose (mg/dL) 83 Random Glucose Calcium Magnesium Total Bilirubin AST ALT Alkaline Phosphatase Total Creatine Kinase CK-MB (Mass) Troponin I Total Protein Albumin Globulin Albumin/Globulin Ratio Cortisol AM Sample Arterial Blood Potassium Venous Blood Potassium Blood Type A POSITIVE Antibody Screen Negative Fingerstick Blood Sugar Results: 72 Critical Care Progress Note - Nutrition Nutrition: Nutrition Category Date Time Status NPO Diet [DIET] Diets 07/02/18 Breakfast Active
[2018-07-02] MEDS ORDERED: MethylPREDNISolone 40 mg Vial IVP SCH (14:00)
--- NOTE | 2018-07-02 14:03 | CP.PCM.PN ---
Subjective - Date & Time of Evaluation Date of Evaluation: 07/02/18 Time of Evaluation: 10:40 - Subjective Subjective: clinically same Objective - Vital Signs/Intake and Output Vital Signs (last 24 hours): Temp Pulse Resp BP Pulse Ox 98.4 F 69 24 90/55 L 100 07/02/18 13:38 07/02/18 13:38 07/02/18 13:38 07/02/18 13:38 07/02/18 13:25 Intake and Output: 07/02/18 07/02/18 06:59 18:59 Intake Total 2446.3 3048.4 Balance 2446.3 3048.4 - Medications Medications: Current Medications Dextrose (Glutose 15) 0 gm PO ONCE PRN; Protocol PRN Reason: Hypoglycemia Protocol Dextrose (Dextrose 50% Inj) 0 ml IV PRN PRN; Protocol PRN Reason: Hypoglycemia Protocol Last Admin: 07/02/18 12:15 Dose: 50 ml Glucagon (Glucagen Diagnostic Kit) 0 mg IM STAT PRN; Protocol PRN Reason: Hypoglycemia Protocol Heparin Sodium (Porcine) (Heparin) 5,000 units SC Q12 JOSSIE Last Admin: 07/02/18 10:47 Dose: 5,000 units Vancomycin HCl 1 gm/ Sodium (Chloride) 200 mls @ 133.333 mls/hr IVPB TTS JOSSIE PRN Reason: Protocol Last Admin: 07/02/18 10:45 Dose: 133.333 mls/hr Meropenem 500 mg/ Sodium (Chloride) 100 mls @ 100 mls/hr IVPB Q12H JOSSIE PRN Reason: Protocol Last Admin: 07/02/18 13:00 Dose: 100 mls/hr Dextrose (Dextrose 5% In Water 1000 Ml) 1,000 mls @ 0 mls/hr IV .Q0M PRN; Protocol; Per Protocol PRN Reason: Hypoglycemia Protocol Phenylephrine HCl 30 mg/ (Sodium Chloride) 253 mls @ 10.12 mls/hr IV .Q24H PRN ; Protocol; 20 MCG/MIN PRN Reason: TITRATE PER MD ORDER Last Admin: 07/02/18 10:44 Dose: 160 mcg/min, 80.96 mls/hr Dexmedetomidine HCl 400 mcg/ (Sodium Chloride) 100 mls @ 9.07 mls/hr IV TITR PRN; Protocol; 0.2 MCG/KG/HR PRN Reason: Agitation Last Admin: 07/02/18 11:25 Dose: 1 mcg/kg/hr, 45.35 mls/hr Norepinephrine Bitartrate 8 mg (/ Dextrose) 250 mls @ 7.5 mls/hr IV .Q24H PRN; Protocol; 4 MCG/MIN PRN Reason: TITRATE PER MD ORDER Last Admin: 07/02/18 09:49 Dose: 5 mcg/min, 9.37 mls/hr Dextrose (Dextrose 10% In Water) 1,000 mls @ 75 mls/hr IV .[id number] [facility] Last Admin: 07/02/18 12:20 Dose: 75 mls/hr Methylprednisolone (Solu-Medrol) 40 mg IVP Q8 [facility] - Labs Labs: 07/02/18 02:05 07/02/18 02:05 PT 26.6 SECONDS (9.7-12.2) H 07/02/18 02:05 INR 2.4 07/02/18 02:05 APTT 40 SECONDS (21-34) H 07/02/18 02:05 - Constitutional Appears: Well - Head Exam Head Exam: ATRAUMATIC, NORMAL INSPECTION, NORMOCEPHALIC - Eye Exam Eye Exam: EOMI, Normal appearance, PERRL Pupil Exam: NORMAL ACCOMODATION, PERRL - ENT Exam ENT Exam: Mucous Membranes Moist, Normal Exam - Neck Exam Neck Exam: Full ROM, Normal Inspection. absent: Lymphadenopathy - Respiratory Exam Respiratory Exam: Decreased Breath Sounds - Cardiovascular Exam Cardiovascular Exam: REGULAR RHYTHM, +S1, +S2 - GI/Abdominal Exam GI & Abdominal Exam: Soft, Diminished Bowel Sounds - Rectal Exam Rectal Exam: Deferred
--- NOTE | 2018-07-02 14:06 | CP.PCM.PN ---
Subjective - Date & Time of Evaluation Date of Evaluation: 07/02/18 Time of Evaluation: 02:00 - Subjective Subjective: dictated Objective - Vital Signs/Intake and Output Vital Signs (last 24 hours): Temp Pulse Resp BP Pulse Ox 98.4 F 69 24 90/55 L 100 07/02/18 13:38 07/02/18 13:38 07/02/18 13:38 07/02/18 13:38 07/02/18 13:25 Intake and Output: 07/02/18 07/02/18 06:59 18:59 Intake Total 2446.3 3048.4 Balance 2446.3 3048.4 - Medications Medications: Current Medications Dextrose (Glutose 15) 0 gm PO ONCE PRN; Protocol PRN Reason: Hypoglycemia Protocol Dextrose (Dextrose 50% Inj) 0 ml IV PRN PRN; Protocol PRN Reason: Hypoglycemia Protocol Last Admin: 07/02/18 12:15 Dose: 50 ml Glucagon (Glucagen Diagnostic Kit) 0 mg IM STAT PRN; Protocol PRN Reason: Hypoglycemia Protocol Heparin Sodium (Porcine) (Heparin) 5,000 units SC Q12 JOSSIE Last Admin: 07/02/18 10:47 Dose: 5,000 units Vancomycin HCl 1 gm/ Sodium (Chloride) 200 mls @ 133.333 mls/hr IVPB TTS JOSSIE PRN Reason: Protocol Last Admin: 07/02/18 10:45 Dose: 133.333 mls/hr Meropenem 500 mg/ Sodium (Chloride) 100 mls @ 100 mls/hr IVPB Q12H JOSSIE PRN Reason: Protocol Last Admin: 07/02/18 13:00 Dose: 100 mls/hr Dextrose (Dextrose 5% In Water 1000 Ml) 1,000 mls @ 0 mls/hr IV .Q0M PRN; Protocol; Per Protocol PRN Reason: Hypoglycemia Protocol Phenylephrine HCl 30 mg/ (Sodium Chloride) 253 mls @ 10.12 mls/hr IV .Q24H PRN ; Protocol; 20 MCG/MIN PRN Reason: TITRATE PER MD ORDER Last Admin: 07/02/18 10:44 Dose: 160 mcg/min, 80.96 mls/hr Dexmedetomidine HCl 400 mcg/ (Sodium Chloride) 100 mls @ 9.07 mls/hr IV TITR PRN; Protocol; 0.2 MCG/KG/HR PRN Reason: Agitation Last Admin: 07/02/18 11:25 Dose: 1 mcg/kg/hr, 45.35 mls/hr Norepinephrine Bitartrate 8 mg (/ Dextrose) 250 mls @ 7.5 mls/hr IV .Q24H PRN; Protocol; 4 MCG/MIN PRN Reason: TITRATE PER MD ORDER Last Admin: 07/02/18 09:49 Dose: 5 mcg/min, 9.37 mls/hr Dextrose (Dextrose 10% In Water) 1,000 mls @ 75 mls/hr IV .[id number] [facility] Last Admin: 07/02/18 12:20 Dose: 75 mls/hr Methylprednisolone (Solu-Medrol) 40 mg IVP Q8 JOSISE - Labs Labs: 07/02/18 02:05 07/02/18 02:05 PT 26.6 SECONDS (9.7-12.2) H 07/02/18 02:05 INR 2.4 07/02/18 02:05 APTT 40 SECONDS (21-34) H 07/02/18 02:05
[2018-07-02 14:22] LABS: ARTERIAL BLOOD GAS HCO3 7.7 mmol/L (21-28); ARTERIAL BLOOD GAS HEMOGLOBIN 10.3 g/dL (11.7-17.4); ARTERIAL BLOOD GAS O2 SAT 99.5 % (95-98); ARTERIAL BLOOD GAS PCO2 26 mm/Hg (35-45); ARTERIAL BLOOD GAS PH 7.04 (7.35-7.45); ARTERIAL BLOOD GAS PO2 144 mm/Hg (80-100); ARTERIAL BLOOD GAS TCO2 7.8 mmol/L (22-28)
--- NOTE | 2018-07-02 14:52 | CARD ---
APPROVED REPORT Date of service: 07/01/2018 EKG Measurement Heart [id number] <Conclusion> Atrial fibrillation Low voltage QRS Abnormal ECG
[2018-07-02] MEDS ORDERED: Sodium Bicarbonate (8.4%) 50 Meq Syringe IVP ONE (16:01)
[2018-07-02] MEDS ORDERED: Sodium Bicarbonate 8.4% 100 MEQ in Dextrose 5%/0.45% NS 1,000 ML IV SCH (16:15)
[2018-07-02 18:06] VITALS: BP 116/93; PULSE 106; RESP 21; O2SAT 95
[2018-07-02] MEDS ORDERED: DOPamine 400mg/250ml D5W 400 MG/250 ML BAG IV ONE (19:47)
--- NOTE | 2018-07-02 20:16 | CP.PCM.PN ---
Subjective - Date & Time of Evaluation Date of Evaluation: 07/02/18 Time of Evaluation: 20:00 - Subjective Subjective: Code blue called at 19:13. ACLS measure implemented, chest compressions begun and 3 doses of epi, 2 bicarb, 2 dextrose administered. ROSC acheived and pulses audible on doppler. Pt's vitals stabilized; HR 187, BP 131/60, O2 100% on mech vent. A subsequent code was called at 19:43. Again ACLS measure including chest compressions, 2 epi, 1 atropine, 1 bicarb and 1 dextrose administered with ROSC , pulses audible by doppler and vitals confirmed. Pt was on levophed and phenylephrine for pressure support at the time of both codes. Vassopressin subsequently added. Third code called at 20:20, with ACLS measure in place again. Chest compressions, 2 doses of epi given. Pt at 20:27. Objective - Vital Signs/Intake and Output Vital Signs (last 24 hours): Temp Pulse Resp BP Pulse Ox 98.4 F 106 H 21 116/93 H 95 07/02/18 13:38 07/02/18 18:03 07/02/18 18:03 07/02/18 18:03 07/02/18 17:38 Intake and Output: 07/02/18 07/03/18 18:59 06:59 Intake Total 5143.2 Balance 5143.2 - Medications Medications: Current Medications Dextrose (Glutose 15) 0 gm PO ONCE PRN; Protocol PRN Reason: Hypoglycemia Protocol Dextrose (Dextrose 50% Inj) 0 ml IV PRN PRN; Protocol PRN Reason: Hypoglycemia Protocol Last Admin: 07/02/18 16:26 Dose: 50 ml Glucagon (Glucagen Diagnostic Kit) 0 mg IM STAT PRN; Protocol PRN Reason: Hypoglycemia Protocol Heparin Sodium (Porcine) (Heparin) 5,000 units SC Q12 JOSSIE Last Admin: 07/02/18 10:47 Dose: 5,000 units Vancomycin HCl 1 gm/ Sodium (Chloride) 200 mls @ 133.333 mls/hr IVPB TTS JOSSIE PRN Reason: Protocol Last Admin: 07/02/18 10:45 Dose: 133.333 mls/hr Meropenem 500 mg/ Sodium (Chloride) 100 mls @ 100 mls/hr IVPB Q12H JOSSIE PRN Reason: Protocol Last Admin: 07/02/18 13:00 Dose: 100 mls/hr Dextrose (Dextrose 5% In Water 1000 Ml) 1,000 mls @ 0 mls/hr IV .Q0M PRN; Protocol; Per Protocol PRN Reason: Hypoglycemia Protocol Phenylephrine HCl 30 mg/ (Sodium Chloride) 253 mls @ 10.12 mls/hr IV .Q24H PRN ; Protocol; 20 MCG/MIN PRN Reason: TITRATE PER MD ORDER Last Admin: 07/02/18 17:05 Dose: 180 mcg/min, 91.08 mls/hr Dexmedetomidine HCl 400 mcg/ (Sodium Chloride) 100 mls @ 9.07 mls/hr IV TITR PRN; Protocol; 0.2 MCG/KG/HR PRN Reason: Agitation Last Admin: 07/02/18 16:35 Dose: 1 mcg/kg/hr, 45.35 mls/hr Norepinephrine Bitartrate 8 mg (/ Dextrose) 250 mls @ 7.5 mls/hr IV .Q24H PRN; Protocol; 4 MCG/MIN PRN Reason: TITRATE PER MD ORDER Last Admin: 07/02/18 09:49 Dose: 5 mcg/min, 9.37 mls/hr Dextrose (Dextrose 10% In Water) 1,000 mls @ 75 mls/hr IV .[id number] [facility] Last Admin: 07/02/18 12:20 Dose: 75 mls/hr Gentamicin Sulfate 100 mg/ (Sodium Chloride) 102.5 mls @ 100 mls/hr IVPB TTS JOSSIE PRN Reason: Protocol Sodium Bicarbonate 100 meq/ (Dextrose/Sodium Chloride) 1,100 mls @ 75 mls/hr IV .[id number] [facility] Last Admin: 07/02/18 16:20 Dose: 75 mls/hr Methylprednisolone (Solu-Medrol) 40 mg IVP Q8 [facility] Last Admin: 07/02/18 15:00 Dose: 40 mg Pantoprazole Sodium (Protonix Inj) 40 mg IVP DAILY [facility] Last Admin: 07/02/18 15:00 Dose: 40 mg Pneumococcal Polyvalent Vaccine (Pneumovax 23 Vaccine) 0.5 ml IM .ONCE ONE Stop: 07/05/18 10:01 - Labs Labs: 07/02/18 02:05 07/02/18 02:05 PT 26.6 SECONDS (9.7-12.2) H 07/02/18 02:05 INR 2.4 07/02/18 02:05 APTT 40 SECONDS (21-34) H 07/02/18 02:05
[2018-07-02] MEDS ORDERED: Sodium Bicarbonate (8.4%) 50 Meq Syringe ONE (20:45)
--- NOTE | 2018-07-02 20:48 | CP.PCM.PN ---
Subjective - Date & Time of Evaluation Date of Evaluation: 07/02/18 Time of Evaluation: 20:47 - Subjective Subjective: Patient started having episodes of cardiac arrest. At least to 2 episodes of cardiac arrest happened. The first 2 episodes patient regained circulation. But finally he developed a third episode of cardiac arrest. He is systolic arrest noted. After is a station with the 10 minutes no improvement noted. Patient continues to be on asystolic arrest. Blood pressure was negative. Asystolic arrest. Unable to resuscitate. Patient pronounced at 8:27 PM. PMD informed. Family called. PMD spoke to the patient's family in detail. Objective - Vital Signs/Intake and Output Vital Signs (last 24 hours): Temp Pulse Resp BP Pulse Ox 98.4 F 106 H 21 116/93 H 95 07/02/18 16:00 07/02/18 18:03 07/02/18 18:03 07/02/18 18:03 07/02/18 17:38 Intake and Output: 07/02/18 07/03/18 18:59 06:59 Intake Total 5143.2 313.0 Balance 5143.2 313.0 - Medications Medications: Current Medications Dextrose (Glutose 15) 0 gm PO ONCE PRN; Protocol PRN Reason: Hypoglycemia Protocol Dextrose (Dextrose 50% Inj) 0 ml IV PRN PRN; Protocol PRN Reason: Hypoglycemia Protocol Last Admin: 07/02/18 16:26 Dose: 50 ml Glucagon (Glucagen Diagnostic Kit) 0 mg IM STAT PRN; Protocol PRN Reason: Hypoglycemia Protocol Heparin Sodium (Porcine) (Heparin) 5,000 units SC Q12 JOSSIE Last Admin: 07/02/18 10:47 Dose: 5,000 units Vancomycin HCl 1 gm/ Sodium (Chloride) 200 mls @ 133.333 mls/hr IVPB TTS JOSSIE PRN Reason: Protocol Last Admin: 07/02/18 10:45 Dose: 133.333 mls/hr Meropenem 500 mg/ Sodium (Chloride) 100 mls @ 100 mls/hr IVPB Q12H JOSSIE PRN Reason: Protocol Last Admin: 07/02/18 13:00 Dose: 100 mls/hr Dextrose (Dextrose 5% In Water 1000 Ml) 1,000 mls @ 0 mls/hr IV .Q0M PRN; Protocol; Per Protocol PRN Reason: Hypoglycemia Protocol Phenylephrine HCl 30 mg/ (Sodium Chloride) 253 mls @ 10.12 mls/hr IV .Q24H PRN ; Protocol; 20 MCG/MIN PRN Reason: TITRATE PER MD ORDER Last Admin: 07/02/18 17:05 Dose: 180 mcg/min, 91.08 mls/hr Dexmedetomidine HCl 400 mcg/ (Sodium Chloride) 100 mls @ 9.07 mls/hr IV TITR PRN; Protocol; 0.2 MCG/KG/HR PRN Reason: Agitation Last Admin: 07/02/18 16:35 Dose: 1 mcg/kg/hr, 45.35 mls/hr Norepinephrine Bitartrate 8 mg (/ Dextrose) 250 mls @ 7.5 mls/hr IV .Q24H PRN; Protocol; 4 MCG/MIN PRN Reason: TITRATE PER MD ORDER Last Admin: 07/02/18 09:49 Dose: 20 mcg/min, 37.5 mls/hr Dextrose (Dextrose 10% In Water) 1,000 mls @ 75 mls/hr IV .[id number] [facility] Last Admin: 07/02/18 12:20 Dose: 75 mls/hr Gentamicin Sulfate 100 mg/ (Sodium Chloride) 102.5 mls @ 100 mls/hr IVPB TTS JOSSIE PRN Reason: Protocol Sodium Bicarbonate 100 meq/ (Dextrose/Sodium Chloride) 1,100 mls @ 75 mls/hr IV .[id number] [facility] Last Admin: 07/02/18 16:20 Dose: 75 mls/hr Methylprednisolone (Solu-Medrol) 40 mg IVP Q8 [facility] Last Admin: 07/02/18 15:00 Dose: 40 mg Pantoprazole Sodium (Protonix Inj) 40 mg IVP DAILY [facility] Last Admin: 07/02/18 15:00 Dose: 40 mg Pneumococcal Polyvalent Vaccine (Pneumovax 23 Vaccine) 0.5 ml IM .ONCE ONE Stop: 07/05/18 10:01 - Labs Labs: 07/02/18 02:05 07/02/18 02:05 PT 26.6 SECONDS (9.7-12.2) H 07/02/18 02:05 INR 2.4 07/02/18 02:05 APTT 40 SECONDS (21-34) H 07/02/18 02:05
--- NOTE | 2018-07-04 07:21 | PN ---
DATE: 07/02/2018 SUBJECTIVE: The patient was seen today. The patient was having dialysis done. I wanted blood cultures and dialysis, but there were blood cultures drawn at 2 o'clock last evening, so I will not get so. He received 2 units of packed RBC and he was intubated last night and remains acutely ill. His lactic acid level is markedly increased and he was in atrial fib and now his heart rate has slowed down to 60s, 67 to be specific at this time. I discussed the patient with Dr. Owen, as he has chronic elephantiasis. Right now, the legs do not look cellulitic but he has had cellulitis in the past. We recently changed his catheter on the right side on 06/02/2018 and the cultures are negative, so his acidosis is coming from where is unclear. PHYSICAL EXAMINATION: VITAL SIGNS: T-max is 98.4; blood pressure is 90/55, on vasopressors at this time; respirations are 24; and pulse rate is 69. I have covered him with vancomycin and meropenem, and I want to make sure he gets vancomycin one dose today and also will he is getting now, and meropenem is active and also he did get gentamicin on 06/30/2018, so we will give him one more dose of gentamicin today as he is acutely septic. We will give him 100 mg , and we will follow. The patient remains very acutely ill, septic, on respiratory failure, dialysis patient, severe anemia, and was recently with Acinetobacter septicemia and small-bowel obstruction. He is unstable and he is 400 pounds. Once he is a little stable, I think we should look for positive cultures as well as CAT scans if possible, but with his weight and being on the machine, we will wait till he stabilizes a little bit. Case was discussed with Dr. Owen at this time. Alec Boucher MD
[2018-07-05] MEDS ORDERED: Pneumococcal 23-Valent Vaccine IM ONE (10:00)
== END 2018-07-02 23:30 | DRG 314 ==
LOC: C.ER 09:37 → C.9E 10:53 → C.5S 12:29 → C.9E 12:57 → C.9I 16:15 → OBSVTOIN 07-01 11:42
PROVIDERS: ADMIT Internal Medicine Nephrology; ATTEND Internal Medicine Nephrology
PROC: 5A12012 Performance of Cardiac Output, Single, Manual (ICD-10-PCS; principal; 2018-07-02)
PROC: 05HN33Z Insertion of Infusion Device into Left Internal Jugular Vein, Percutaneous Approach (ICD-10-PCS; 2018-07-02)
PROC: 0BH18EZ Insertion of Endotracheal Airway into Trachea, Via Natural or Artificial Opening Endoscopic (ICD-10-PCS; 2018-07-02)
PROC: 5A1935Z Respiratory Ventilation, Less than 24 Consecutive Hours (ICD-10-PCS; 2018-07-02)
PROC: 30233N1 Transfusion of Nonautologous Red Blood Cells into Peripheral Vein, Percutaneous Approach (ICD-10-PCS; 2018-07-02)
PROC: 5A1D70Z Performance of Urinary Filtration, Intermittent, Less than 6 Hours Per Day (ICD-10-PCS; 2018-07-02)
DX: I95.9 Hypotension, unspecified (principal); A41.9 Sepsis, unspecified organism; J96.91 Respiratory failure, unspecified with hypoxia; R65.21 Severe sepsis with septic shock; N18.6 End stage renal disease; E66.2 Morbid (severe) obesity with alveolar hypoventilation; E87.2 Acidosis; I13.2 Hypertensive heart and chronic kidney disease with heart failure and with stage 5 chronic kidney disease, or end stage renal disease; L03.116 Cellulitis of left lower limb; L03.115 Cellulitis of right lower limb; L97.929 Non-pressure chronic ulcer of unspecified part of left lower leg with unspecified severity; L97.919 Non-pressure chronic ulcer of unspecified part of right lower leg with unspecified severity; I95.3 Hypotension of hemodialysis; E11.21 Type 2 diabetes mellitus with diabetic nephropathy; E11.22 Type 2 diabetes mellitus with diabetic chronic kidney disease; E11.622 Type 2 diabetes mellitus with other skin ulcer; E11.649 Type 2 diabetes mellitus with hypoglycemia without coma; E86.1 Hypovolemia; I48.0 Paroxysmal atrial fibrillation; I50.9 Heart failure, unspecified; J44.9 Chronic obstructive pulmonary disease, unspecified; I46.9 Cardiac arrest, cause unspecified; I89.0 Lymphedema, not elsewhere classified; K21.9 Gastro-esophageal reflux disease without esophagitis; E78.00 Pure hypercholesterolemia, unspecified; G47.30 Sleep apnea, unspecified; F17.210 Nicotine dependence, cigarettes, uncomplicated; Z99.2 Dependence on renal dialysis